=== PATIENT | female | born 1960 | race Caucasian/White ===

== ENCOUNTER → 2020-10-31 13:52 | Outpatient (BNVA) | payer MEDICAID, SELFPAY | PROVIDERS: PCP Family Medicine; Visit Provider Nurse Practitioner | DX: Z76.89 Persons encountering health services in other specified circumstances (principal) ==

== ENCOUNTER → 2020-11-14 14:56 | Outpatient (BNVA) | payer MEDICAID, SELFPAY | PROVIDERS: Visit Provider Nurse Practitioner | DX: Z76.89 Persons encountering health services in other specified circumstances (principal) ==

== ENCOUNTER 2021-01-11 10:22 | Outpatient (REF) | payer MEDICAID, SELFPAY ==
--- NOTE | ~2021-01-11 | MM_ITS ---
EXAMINATION: MM SCREENING DIGITAL BREAST TOMOSYNTHESIS, BILATERAL CLINICAL INFORMATION: Screening. Asymptomatic. The lifetime risk of breast cancer based on the Tyrer-Cuzick Model is 5%. COMPARISON: Mammography: 01/05/2020, 11/17/2019, 01/03/2019, 06/30/2018, 02/25/2018, 12/11/2017. TECHNIQUE: Digital breast tomosynthesis is performed in both the craniocaudal and mediolateral oblique views along with computer-aided detection (CAD). Synthesized 2D images are generated from the tomosynthesis. FINDINGS: There are scattered areas of fibroglandular density (ACR BI-RADS breast composition Category b). There are no significant masses, abnormal calcifications, or other abnormalities. No significant changes from prior exams. MM/MM tomosynthesis screening BI IMPRESSION: No mammographic evidence of malignancy. ASSESSMENT: BI-RADS 1: Negative RECOMMENDATION: Routine annual mammography screening. This patient's information was entered into a reminder system with a target due date for their next mammogram.
== END 2021-01-11 10:23 | disposition home or self-care (01) ==
LOC: HO.MAMMO 10:22
PROVIDERS: Visit Provider Family Medicine
DX: Z12.31 Encounter for screening mammogram for malignant neoplasm of breast (principal)
CPT/HCPCS: 77063; 77067

== ENCOUNTER 2021-02-12 09:00 | Outpatient (REF) | payer MEDICAID, SELFPAY ==
[2021-02-16 00:56] LABS: HPV 16 RNA NOT DETECTED (NOT DETECTED); HPV mRNA E6/E7 rflx Detected (Not Detected)
== END 2021-02-12 09:01 | disposition home or self-care (01) ==
LOC: HO.LAB 09:00
PROVIDERS: PCP Family Medicine; Visit Provider Obstetrics & Gynecology
DX: Z12.4 Encounter for screening for malignant neoplasm of cervix (principal); Z11.51 Encounter for screening for human papillomavirus (HPV); N95.0 Postmenopausal bleeding
CPT/HCPCS: 36415; 87624; 87625; 88141; 88142; 99202

== ENCOUNTER 2021-02-18 13:59 | Outpatient (REF) | payer MEDICAID, SELFPAY ==
--- NOTE | ~2021-02-18 | US_ITS ---
EXAMINATION: US PELVIS COMPLETE CLINICAL INFORMATION: Postmenopausal bleeding. COMPARISON: Ultrasound pelvis 12/30/2012 TECHNIQUE: Transabdominal and transvaginal ultrasound of the pelvis was performed. FINDINGS: The uterus is retroverted measuring 6.0 cm in length, 4.0 cm in AP and 3.6 cm wide and volume 45.24 mL. There is a hyperechoic lesion in the fundal uterus measuring 2.2 x 2.1 x 2.2 cm likely fibroid. No additional lesions seen. The right ovary measures 2.1 x 2.2 x 1.4 cm and volume 3.4 mL. It appears unremarkable. The left ovary measures 1.6 x 1.1 1.3 cm and volume 1.2 mL. It appears unremarkable. There is no free fluid in the cul-de-sac. US/US transvaginal IMPRESSION: Small uterine fibroid measuring 2.2 cm. It measured 1.7 cm on previous ultrasound exam 12/30/2012. The ovaries are unremarkable.
--- NOTE | ~2021-02-18 | US_ITS ---
EXAMINATION: US PELVIS COMPLETE CLINICAL INFORMATION: Postmenopausal bleeding. COMPARISON: Ultrasound pelvis 12/30/2012 TECHNIQUE: Transabdominal and transvaginal ultrasound of the pelvis was performed. FINDINGS: The uterus is retroverted measuring 6.0 cm in length, 4.0 cm in AP and 3.6 cm wide and volume 45.24 mL. There is a hyperechoic lesion in the fundal uterus measuring 2.2 x 2.1 x 2.2 cm likely fibroid. No additional lesions seen. The right ovary measures 2.1 x 2.2 x 1.4 cm and volume 3.4 mL. It appears unremarkable. The left ovary measures 1.6 x 1.1 1.3 cm and volume 1.2 mL. It appears unremarkable. There is no free fluid in the cul-de-sac. US/US pelvic complete IMPRESSION: Small uterine fibroid measuring 2.2 cm. It measured 1.7 cm on previous ultrasound exam 12/30/2012. The ovaries are unremarkable.
== END 2021-02-18 14:00 | disposition home or self-care (01) ==
LOC: HO.US 13:59
PROVIDERS: Visit Provider Obstetrics & Gynecology
DX: N95.0 Postmenopausal bleeding (principal)
CPT/HCPCS: 76830; 76856

== ENCOUNTER 2021-02-20 10:13 | Emergency (ER) | payer MEDICAID, SELFPAY ==
--- NOTE | ~2021-02-20 | XR_ITS ---
EXAMINATION: XR CHEST CLINICAL INFORMATION: Chest pain. COMPARISON: None TECHNIQUE: Frontal view of the chest was obtained. FINDINGS: The lungs are well-expanded and clear. The heart size and pulmonary vascularity is normal. There is mild spondylosis dorsal spine. No lytic process. XR/XR chest 1V IMPRESSION: No acute cardiopulmonary process seen. Mild spondylosis dorsal spine.
--- NOTE | ~2021-02-20 | CT_ITS ---
EXAMINATION: CT ANGIOGRAM OF THE CHEST WITH AND WITHOUT CONTRAST (CT PULMONARY ANGIOGRAM FOR PE) CLINICAL INFORMATION: Reason for Exam Chest pain. elevated D-dimer. COMPARISON: None TECHNIQUE: Prior to contrast administration, noncontrast localization images were obtained. Subsequently, multidetector volumetric imaging was performed from the thoracic inlet to below the diaphragms following the administration of 80 mL Omnipaque 350 intravenous contrast. No contrast reaction reported Sagittal, coronal, and MIP oblique sagittal reformatted images were obtained on the CT workstation, uploaded to PACS, and reviewed. This CT examination was performed using dose optimization techniques as appropriate, variously including the following: *Automated exposure control *Adjustment of mA and/or kV according to patient size (this includes techniques or standardized protocols for targeted exams where dose is matched to indication/reason for exam; i.e. extremities or head) *Use of iterative reconstruction technique Total exam dose-length product 319 mGy-cm FINDINGS: QUALITY OF STUDY/CONTRAST BOLUS: Satisfactory. PULMONARY ARTERIES: No central or segmental pulmonary emboli. THORACIC AORTA: No aneurysm or dissection. LUNG: There is mild centrilobular emphysema. No acute pneumonic process seen. There is no bladder nodules, mass or groundglass density. PLEURA: No pleural effusion or pneumothorax. MEDIASTINUM: The heart size and the great vessels are normal caliber. No pericardial effusion seen. Central trachea and the bronchi widely patent. No abnormal lymph nodes visualized. No evidence of septal bowing or right heart strain. CHEST WALL/AXILLA: No axillary or internal mammary lymphadenopathy. OSSEOUS STRUCTURES: No acute or suspicious osseous abnormality. UPPER ABDOMEN: Visualized liver, spleen, pancreas and bilateral adrenal glands are unremarkable. No reflux of contrast into the hepatic veins to suggest elevated right heart pressures. CT/CT angio chest PE protocol IMPRESSION: No evidence of PE. No evidence of aortic aneurysm or dissection. VTE: negative
[2021-02-20 10:32] VITALS: BP 158/80; PULSE 65; RESP 14; TEMP 36.8; O2SAT 97; BMI 35.6
--- NOTE | 2021-02-20 11:23 | ECG_ITS ---
Test Reason : CHEST PAIN Blood Pressure : / mmHG Vent. Rate : 069 BPM Atrial Rate : 069 BPM P-R Int : 146 ms QRS Dur : 078 ms QT Int : 428 ms P-R-T Axes : 066 037 059 degrees QTc Int : 458 ms Normal sinus rhythm Normal ECG When compared with ECG of 15-AUG-2018 20:54, No significant change was found Referred By: Generic ED Physician Electronically Signed By:Lyndon Landry
--- NOTE | 2021-02-20 11:34 | ED_ITS ---
HPI - Chest Pain General Chief Complaint: Chest Pain Stated Complaint: chest pain Time Seen by Provider: 02/20/21 11:25 Source: patient Mode of arrival: ambulatory Limitations: no limitations History of Present Illness HPI narrative: Patient presents to the ED for 3 days left to right chest pain, nausea, acid burning sensation ( epigastric), and headache. Patient denies any fever or chills. Patient was diagnosed in COVID this past December. Patient denies any swelling lower extremities. Patient denies any shortness of breath. Related Data Home Medications Medication Instructions Recorded Confirmed sennosides 8.6 mg capsule 17.2 mg PO BEDTIME cap 10/31/20 02/12/21 Previous Rx's Medication Instructions Recorded linaclotide 290 mcg capsule 290 mcg PO QAM #30 cap 11/14/20 omeprazole 40 mg capsule,delayed 40 mg PO BID #60 cap 11/14/20 release simethicone 180 mg capsule 180 mg PO QID 30 Days #120 cap 11/14/20 sucralfate 100 mg/mL oral 20 ml PO DAILY #420 ml 11/14/20 suspension famotidine [Pepcid] 20 mg PO BID 20 Days #40 tab 02/20/21 Allergies Allergy/AdvReac Type Severity Reaction Status Date / Time No Known Allergies Allergy Verified 02/12/21 09:16 [No Known Allergies*] Review of Systems Review of Systems: Yes all other systems are reviewed and are negative Constitutional: Constitutional: Reports as per HPI and Reports no additional constitutional complaints Eyes: Eyes: Reports as per HPI and Reports no additional eye complaints ENT: Reports system reviewed and no additional complaints, except as documented and Reports as per HPI Cardiovascular: Cardiovascular: Reports as per HPI, Reports no additional cardiovascular complaints and Reports chest pain Respiratory: Respiratory: Reports as per HPI, Reports no additional respiratory complaints and Reports cough Gastrointestinal: Gastrointestinal: Reports as per HPI and Reports no additional gastrointestinal complaints Musculoskeletal: Musculoskeletal: Reports no additional musculoskeletal complaints and Reports as per HPI Neurologic: Reports system reviewed and no additional complaints, except as documented and Reports as per HPI Psychiatric: Psychiatric: Reports no additional psychiatric complaints and Reports as per HPI [facility] Past Medical History Medical History Diabetes Surgical History History of esophagogastroduodenoscopy (EGD) Hx of colonoscopy Family History Family History Father Family history of prostate problems Mother Tumor Social History Social History Household Members: None Alcohol intake: never Smoking Status: Light tobacco smoker Tobacco Type: Cigarette Cigarettes Per Day: 2 Smoked in Last 30 Days: No Use of substances other than those prescribed or required for medical reasons: No Advance Directives: Yes Advance Directives Information Provided: Yes Advance Directives on File: No Current occupational status: disabled Physical Exam Vital Signs: Vital Signs: Last Vital Signs Temp 98.1 F 02/20/21 15:05 Pulse 59 02/20/21 15:05 Resp 18 02/20/21 15:05 BP 117/78 02/20/21 15:05 Pulse Ox 98 02/20/21 15:05 Body Mass Index 35.6 Const: General: cooperative, healthy appearing, comfortable, no acute distress, well developed, alert, awake and Physically active Orientation/consciousness: patient oriented x3 HENMT: Head: Yes normal to inspection and Yes No palpable skull fracture present Eyes: General: appearance normal, both eyes and all related structures Neck: Neck: Yes normal visual inspection, Yes full ROM, Yes no lymphadenopathy, Yes no meningeal signs, Yes trachea midline, Yes supple and No tender Chest: Chest palpation & inspection: normal inspection of the chest Resp: Effort & Inspection: normal respiratory effort and able to speak in complete sentences Auscultation: clear to auscultation bilaterally Cardio: Jugular venous distension: no JVD Heart sounds: S1 normal heart sound present and S2 normal heart sound present GI: Inspection: Yes normal to inspection and No abdominal wall ecchymosis Palpation (GI): Soft to palpation, not firm, Tenderness to palpation present (GI) (mild) in the epigastrum; not in the LLQ, not in the RLQ, not in the LUQ, not in the RUQ, not at McBurney's point, not periumbilically, not suprapubicly, Garnica's sign negative, obturator sign negative, psoas sign negative, with no rebound tenderness and Rovsing's sign negative, no guarding and not rigid : General: No CVA tenderness and Yes no CVA tenderness Back/Spine/Pelvis: Back: no CVA tenderness, No CVA tenderness and No back tenderness Skin: General skin exam: no rashes or lesions noted and elasticity normal Neuro: General: patient oriented x3, no meningeal signs and CN's II-XI intact bilaterally Cranial nerves: Yes CN's II-XII intact bilaterally Extrem: General: Yes normal to inspection and Yes full ROM Psych: Appearance: grossly normal, well kempt and not disheveled Course Course Course Narrative: Possibly patient having GERD exacerbation, but due to age and risk factors patient will have a cardiac evaluation. Reevaluation(s) Reevaluation #1: Patient EKG normal. Patient's troponin negative after having symptoms for 2 days. Due to elevated D-dimer patient was sent for chest CT was negative for pneumonia and PE. Patient states chest pain burning sensation resolved after receiving GI cocktail. Most likely patient had GERD causing chest pain. Patient to be discharged with Pepcid. Patient informed to follow- up with PCP. MDM - Chest Pain MDM Narrative Medical decision making narrative: GERD chest pain Lab Data Result diagrams: 02/20/21 11:37 02/20/21 11:37 Labs: Lab Results 02/20/21 02/20/21 02/20/21 Range/Units 11:37 11:37 11:37 WBC 9.2 (4.8-10.8) X10*3/uL RBC 4.27 (4.20-5.50) X10*6/uL Hgb 12.2 (12.0-16.0) g/dl Hct 38.6 (37-47) % MCV 90.4 (80-98) fL MCH 28.6 (27.0-33.0) pg MCHC 31.6 (31.0-35.0) g/dl RDW 14.5 (11.0-16.0) % Plt Count 311 (160-400) X10*3/uL MPV 10.3 (9.4-12.3) fL Immature Gran % (Auto) 0.3 (0.0-0.4) % Neut % (Auto) 62.1 (45-73) % Lymph % (Auto) 25.0 (20-40) % [place] % (Auto) 5.9 (2-11) % Eos % (Auto) 6.2 H (0-4) % Baso % (Auto) 0.5 (0-2) % Lymph # (Auto) 2.3 (1.2-4.9) X10*3/uL [place] # (Auto) 0.5 (0.1-1.2) X10*3/uL Eos # (Auto) 0.6 H (0.0-0.4) X10*3/uL Baso # (Auto) 0.1 (0.0-0.2) X10*3/uL Abs Immat Gran (auto) 0.03 (0.00-0.03) X10*3/uL Absolute Neuts (auto) 5.7 (2.0-8.3) X10*3/uL Absolute Nucleated RBC 0.000 (0.0-0.012) X10*3/uL Nucleated RBC % (auto) 0.0 (0.0-0.2) /100WBC PT 12.5 (10.8-13.0) SEC INR 1.1 (0.9-1.1) APTT 34.1 (24.1-38.0) SEC D-Dimer 229 NG/ML Hold Blue Top SEE NOTE Sodium 139 (135-145) mmol/L Potassium 4.2 (3.3-5.1) mmol/L Chloride 102 (96-108) mmol/L Carbon Dioxide 28 (22-29) mmol/L Anion Gap 13 (12-20) BUN 14 (9-16) mg/dL Creatinine 0.71 (0.5-1.4) mg/dL Estim Creat Clear Calc 85.9 Estimated GFR > 60 Random Glucose 107 (60-115) mg/dL Calcium 8.7 (8.4-10.2) mg/dL Total Bilirubin 0.5 (0.0-1.0) mg/dL Direct Bilirubin 0.2 (0.0-0.5) mg/dL AST 16 (5-31) U/L ALT 16 (0-31) U/L Alkaline Phosphatase 78 (39-117) U/L Troponin I High Sens (<3.5-17.0) ng/L B-Natriuretic Peptide (<100) pg/mL Total Protein 6.3 L (6.5-8.0) g/dL Albumin 3.8 (3.5-5.0) g/dL Lipase 39 (8-78) U/L 02/20/21 Range/Units 11:37 WBC (4.8-10.8) X10*3/uL RBC (4.20-5.50) X10*6/uL Hgb (12.0-16.0) g/dl Hct (37-47) % MCV (80-98) fL MCH (27.0-33.0) pg MCHC (31.0-35.0) g/dl RDW (11.0-16.0) % Plt Count (160-400) X10*3/uL MPV (9.4-12.3) fL Immature Gran % (Auto) (0.0-0.4) % Neut % (Auto) (45-73) % Lymph % (Auto) (20-40) % [place] % (Auto) (2-11) % Eos % (Auto) (0-4) % Baso % (Auto) (0-2) % Lymph # (Auto) (1.2-4.9) X10*3/uL [place] # (Auto) (0.1-1.2) X10*3/uL Eos # (Auto) (0.0-0.4) X10*3/uL Baso # (Auto) (0.0-0.2) X10*3/uL Abs Immat Gran (auto) (0.00-0.03) X10*3/uL Absolute Neuts (auto) (2.0-8.3) X10*3/uL Absolute Nucleated RBC (0.0-0.012) X10*3/uL Nucleated RBC % (auto) (0.0-0.2) /100WBC PT (10.8-13.0) SEC INR (0.9-1.1) APTT (24.1-38.0) SEC D-Dimer NG/ML Hold Blue Top Sodium (135-145) mmol/L Potassium (3.3-5.1) mmol/L Chloride (96-108) mmol/L Carbon Dioxide (22-29) mmol/L Anion Gap (12-20) BUN (9-16) mg/dL Creatinine (0.5-1.4) mg/dL Estim Creat Clear Calc Estimated GFR Random Glucose (60-115) mg/dL Calcium (8.4-10.2) mg/dL Total Bilirubin (0.0-1.0) mg/dL Direct Bilirubin (0.0-0.5) mg/dL AST (5-31) U/L ALT (0-31) U/L Alkaline Phosphatase (39-117) U/L Troponin I High Sens < 3.5 (<3.5-17.0) ng/L B-Natriuretic Peptide 42 (<100) pg/mL Total Protein (6.5-8.0) g/dL Albumin (3.5-5.0) g/dL Lipase (8-78) U/L ECG Data ECG #1: Interpretation: Normal sinus rhythm. Normal EKG. Nuclear rate 69. Pr interval 146. QRS 78. QTC 458. Negative STEMI Discharge Plan Discharge Clinical Impression: GERD (gastroesophageal reflux disease), Chest pain Patient Disposition: Home, Self-Care Instructions: Chest Pain (ED), Gastroesophageal Reflux Disease (ED) Additional Instructions: Regrese al servicio de urgencias de inmediato si tiene dificultad para respirar al hacer ejercicio, dolor en el pecho, dolor abdominal, n?useas, v?mitos, fiebre, escalofr?os, hinchaz?n de las extremidades inferiores, dolor en la pantorrilla, tos con malini o cualquier otro s?ntoma preocupante. Armida an?lisis de malini dieron negativo para un ataque card?aco. El electrocardiograma fue normal. La tomograf?a computarizada de t?rax result? negativa para un co?gulo de malini. Ghazala un seguimiento con cordova PCP Prescriptions: New famotidine [Pepcid] 20 mg tablet 20 mg PO BID 20 Days Qty: 40 RF: 0 No Action senna 8.6 mg capsule 17.2 mg PO BEDTIME RF: 0 omeprazole 40 mg capsule,delayed release(DR/EC) 40 mg PO BID Qty: 60 RF: 6 Linzess 290 mcg capsule 290 mcg PO QAM Qty: 30 RF: 6 sucralfate [Carafate] 100 mg/mL suspension 20 ml PO DAILY Qty: 420 RF: 6 simethicone 180 mg capsule 180 mg PO QID 30 Days Qty: 120 RF: 3 Interventions: ED Discharge Assessment Last Done: 02/20/21 16:10 Discharge Date/Time: 02/20/21 16:27 Print Language: Faroese
[2021-02-20] MEDS: Lidocaine HCl Viscous 2 % 15 ML SOLUTION MUCOUS MEM (11:45)
[2021-02-20] MEDS: Famotidine/PF 20 MG/2 ML VIAL IVPUSH (11:45)
[2021-02-20] MEDS: Acetaminophen 325 MG TABLET 650 MG PO (11:45)
[2021-02-20] MEDS: Magnesium Hydrox/Alum Hydrox 30 ML ORAL.SUSP PO (11:45)
[2021-02-20] MEDS: ondansetron HCL 4 MG/2 ML VIAL IVPUSH (11:45)
[2021-02-20 11:46] LABS: MANUAL DIFF FLAG NO
[2021-02-20] MEDS: PHENobarb/Hyoscy/Atropine/Scop 10 ML ELIXIR PO (11:46)
[2021-02-20 11:51] VITALS: BP 143/89; PULSE 64; RESP 16; TEMP 36.7; O2SAT 97
--- NOTE | 2021-02-20 11:51 | PC.NURSE ---
iv inserted, labs drawn, ekg performed upon arrival, trimmer climber nsr 60s, pt medicated per order, pt awaiting radiology for cxr, will continue to monitor.
[2021-02-20 11:52] VITALS: PULSE 64
[2021-02-20 11:54] LABS: Basophils Absolute Auto 0.1 X10*3/uL (0.0-0.2); Basophils Percent Auto 0.5 % (0-2); Eosinophils Absolute Auto 0.6 X10*3/uL (0.0-0.4); Eosinophils Percent Auto 6.2 % (0-4); Hematocrit 38.6 % (37-47); Hemoglobin 12.2 g/dl (12.0-16.0); Imm Gran Abs Auto 0.03 X10*3/uL (0.00-0.03); Imm Gran Pct Auto 0.3 % (0.0-0.4); Lymphocytes Absolute Auto 2.3 X10*3/uL (1.2-4.9); Mean Corpuscular HGB Conc 31.6 g/dl (31.0-35.0); Mean Corpuscular Hemoglobin 28.6 pg (27.0-33.0); Mean Corpuscular Volume 90.4 fL (80-98); Mean Platelet Volume 10.3 fL (9.4-12.3); Monocytes Absolute Auto 0.5 X10*3/uL (0.1-1.2); Monocytes Percent Auto 5.9 % (2-11); Neutrophils Absolute Auto 5.7 X10*3/uL (2.0-8.3); Neutrophils Percent Auto 62.1 % (45-73); Platelet Count 311 X10*3/uL (160-400); Red Blood Count 4.27 X10*6/uL (4.20-5.50); Red Cell Distribution Width 14.5 % (11.0-16.0); White Blood Count 9.2 X10*3/uL (4.8-10.8)
[2021-02-20 11:56] LABS: INTERNATIONAL NORM RATIO 1.1 (0.9-1.1); Prothrombin Time 12.5 SEC (10.8-13.0)
[2021-02-20 11:59] LABS: D Dimer 229 NG/ML; Partial Thromboplastin Time 34.1 SEC (24.1-38.0)
[2021-02-20 12:14] LABS: Troponin-I High Sensitivity < 3.5 ng/L (<3.5-17.0)
[2021-02-20 12:16] LABS: Alanine Aminotransferase 16 U/L (0-31); Albumin Level 3.8 g/dL (3.5-5.0); Alkaline Phosphatase 78 U/L (39-117); Anion Gap 13 (12-20); Aspartate Amino Transferase 16 U/L (5-31); Bilirubin Direct 0.2 mg/dL (0.0-0.5); Bilirubin Total 0.5 mg/dL (0.0-1.0); Blood Urea Nitrogen 14 mg/dL (9-16); Calcium 8.7 mg/dL (8.4-10.2); Carbon Dioxide 28 mmol/L (22-29); Chloride 102 mmol/L (96-108); Creatinine Clr Calc Pharmacy 85.9; Estimated Glomerular Filt Rate > 60; Glucose Random 107 mg/dL (60-115); Lipase 39 U/L (8-78); Potassium 4.2 mmol/L (3.3-5.1); Sodium 139 mmol/L (135-145); Total Protein 6.3 g/dL (6.5-8.0)
[2021-02-20 12:20] LABS: B Type Natriuretic Peptide 42 pg/mL (<100)
[2021-02-20 13:26] VITALS: BP 130/80; PULSE 63; RESP 18; TEMP 36.6; O2SAT 98
--- NOTE | 2021-02-20 13:27 | PC.NURSE ---
patient a&o, engine monitor sinus juanita 50-60s, vss, patient has mild headache still, denies chest pain at this time, will continue to monitor.
--- NOTE | 2021-02-20 13:35 | PC.NURSE ---
pt to ct scan
[2021-02-20 15:05] VITALS: BP 117/78; PULSE 59; RESP 18; TEMP 36.7; O2SAT 98
--- NOTE | 2021-02-20 15:06 | PC.NURSE ---
patient a&ox3, no c/o pain or discomfort, headache also resolved, vitals stable, residential monitor sinus juanita 50s-60s, pt currently watching tv, will continue to monitor.
== END 2021-02-20 16:27 | disposition home or self-care (01) ==
PROVIDERS: Physician Assistant; Emergency Provider Emergency Medicine; PCP Family Medicine
DX: K21.9 Gastro-esophageal reflux disease without esophagitis (principal); R07.9 Chest pain, unspecified; E11.9 Type 2 diabetes mellitus without complications; Z86.16 Personal history of COVID-19; F17.210 Nicotine dependence, cigarettes, uncomplicated
CPT/HCPCS: 36415; 71045; 71275; 80048; 80076; 83690; 83880; 84484; 85025; 85379; 85610; 85730; 93005; 96374; 96375; 99284; J2405; Q9967

== ENCOUNTER → 2021-03-04 10:53 | Outpatient (BNVA) | payer MEDICAID, SELFPAY | PROVIDERS: PCP Family Medicine; Visit Provider Obstetrics & Gynecology ==

== ENCOUNTER 2021-03-13 13:46 | Outpatient (REF) | payer MEDICAID, SELFPAY | END 2021-03-13 13:47 | disposition home or self-care (01) | LOC: HO.LAB 13:46 | PROVIDERS: PCP Family Medicine; Visit Provider Obstetrics & Gynecology | DX: R87.615 Unsatisfactory cytologic smear of cervix (principal); N95.0 Postmenopausal bleeding; E11.9 Type 2 diabetes mellitus without complications; F17.210 Nicotine dependence, cigarettes, uncomplicated | CPT/HCPCS: 57456; 58100; 88142; 88305 ==

== ENCOUNTER → 2021-03-19 10:06 | Outpatient (BNVA) | payer MEDICAID, SELFPAY | PROVIDERS: PCP Family Medicine; Visit Provider Nurse Practitioner ==

== ENCOUNTER → 2021-03-27 14:19 | Outpatient (BNVA) | payer MEDICAID, SELFPAY | PROVIDERS: PCP Family Medicine; Visit Provider Obstetrics & Gynecology ==

== ENCOUNTER 2021-04-19 15:00 | Outpatient (REF) | payer MEDICAID, SELFPAY ==
--- NOTE | ~2021-04-19 | US_ITS ---
EXAMINATION: US VENOUS ULTRASOUND WITH DOPPLER LOWER EXTREMITY, RIGHT CLINICAL INFORMATION: Pain and swelling COMPARISON: Previous exams most recent January 2020 TECHNIQUE: Ultrasound of the deep veins is performed from the hip to the calf with compression sonography and color and pulse Doppler assessment. Spectral analysis with color-flow imaging is performed. FINDINGS: There is normal venous compression and respiratory variation and augmented flow. The visualized common femoral vein, superficial femoral vein, profunda femoral vein, popliteal vein, and the trifurcation region shows no evidence of deep venous thrombosis. There is no significant popliteal fossa cyst. US/US venous duplex LE RT IMPRESSION: No DVT demonstrated in the right lower extremity.
== END 2021-04-19 15:01 | disposition home or self-care (01) ==
LOC: HO.US 15:00
PROVIDERS: Visit Provider Emergency Medicine
DX: M79.661 Pain in right lower leg (principal); L21.9 Seborrheic dermatitis, unspecified; M79.89 Other specified soft tissue disorders
CPT/HCPCS: 93971

== ENCOUNTER 2021-05-02 17:57 | Emergency (ER) | payer MEDICAID, SELFPAY ==
[2021-05-02 19:20] VITALS: BP 148/62; PULSE 67; RESP 18; TEMP 36.8; O2SAT 98; BMI 35.4
[2021-05-02 21:26] VITALS: BP 173/85; PULSE 67; RESP 18; O2SAT 97
[2021-05-02 21:38] LABS: MANUAL DIFF FLAG NO
[2021-05-02 21:39] LABS: Basophils Absolute Auto 0.1 X10*3/uL (0.0-0.2); Basophils Percent Auto 0.6 % (0-2); Eosinophils Absolute Auto 0.3 X10*3/uL (0.0-0.4); Eosinophils Percent Auto 3.1 % (0-4); Hematocrit 38.5 % (37-47); Hemoglobin 12.1 g/dl (12.0-16.0); Imm Gran Abs Auto 0.03 X10*3/uL (0.00-0.03); Imm Gran Pct Auto 0.3 % (0.0-0.4); Lymphocytes Absolute Auto 3.4 X10*3/uL (1.2-4.9); Lymphocytes Percent Auto 37.1 % (20-40); Mean Corpuscular HGB Conc 31.4 g/dl (31.0-35.0); Mean Corpuscular Hemoglobin 28.3 pg (27.0-33.0); Mean Platelet Volume 10.3 fL (9.4-12.3); Monocytes Absolute Auto 0.5 X10*3/uL (0.1-1.2); Monocytes Percent Auto 5.7 % (2-11); Neutrophils Absolute Auto 4.8 X10*3/uL (2.0-8.3); Neutrophils Percent Auto 53.2 % (45-73); Platelet Count 289 X10*3/uL (160-400); Red Blood Count 4.28 X10*6/uL (4.20-5.50); Red Cell Distribution Width 14.1 % (11.0-16.0); White Blood Count 9.1 X10*3/uL (4.8-10.8)
[2021-05-02 22:05] LABS: Anion Gap 10 (12-20); Blood Urea Nitrogen 12 mg/dL (9-16); Calcium 9.1 mg/dL (8.4-10.2); Carbon Dioxide 32 mmol/L (22-29); Chloride 105 mmol/L (96-108); Creatinine Clr Calc Pharmacy 87.7; Estimated Glomerular Filt Rate > 60; Glucose Random 105 mg/dL (60-115); Potassium 4.1 mmol/L (3.3-5.1); Sodium 143 mmol/L (135-145)
[2021-05-02 22:13] LABS: B Type Natriuretic Peptide 69 pg/mL (<100)
[2021-05-03 00:41] VITALS: BP 182/87; PULSE 67; RESP 18; TEMP 36.8; O2SAT 99
--- NOTE | 2021-05-03 01:02 | ED.EXTPRO ---
HPI - Extremity Problem General Chief complaint: Extremity Problem Stated complaint: feet swollen Time Seen by Provider: 05/03/21 00:13 Source: patient Mode of arrival: ambulatory Limitations: no limitations History of Present Illness HPI Narrative: Patient comes emergency room complaining of bilateral lower extremity swelling that started 2 weeks ago. Patient states it started approximately. Patient had a duplex ultrasound of the right leg on April 19, no DVT found. Patient states that she feels that the skin on her legs is tense, no calf tenderness. Patient denies chest pain or shortness of breath. Patient states that she has never been on any diuretics. Related Data Previous Rx's Medication Instructions Recorded linaclotide 290 mcg capsule 290 mcg PO QAM #30 cap 11/14/20 omeprazole 40 mg capsule,delayed 40 mg PO BID #60 cap 11/14/20 release sucralfate 100 mg/mL oral 20 ml PO DAILY #420 ml 11/14/20 suspension famotidine [Pepcid] 20 mg PO BID 20 Days #40 tab 02/20/21 simethicone 180 mg capsule 180 mg PO QID #120 cap 02/25/21 hydrocortisone 2.5 % topical cream 1 appl MS BID #30 g 03/19/21 with perineal applicator sennosides 8.6 mg capsule 17.2 mg PO BEDTIME 30 Days #60 cap 03/19/21 furosemide [Lasix] 40 mg PO DAILY #7 tab 05/03/21 Allergies Allergy/AdvReac Type Severity Reaction Status Date / Time No Known Allergies Allergy Verified 05/03/21 00:44 [No Known Allergies*] Review of Systems Review of Systems: Constitutional : No Weight loss, No Fever, No Chills, No Night Sweats, No Fatigue, No Malaise ENT/Mouth : No Hearing loss, No Ear Pain, No Nasal Congestion, No Sinus Pain, No Hoarseness, No sore throat, No Rhinorrhea, No Swallowing Difficulty Eyes: No Eye Pain, No Swelling, No Redness, No Foreign Body, No Discharge, No Vision Changes Cardiovascular : No Chest Pain, No SOB, No Dyspnea on Exertion, No Orthopnea, No Palpitations Respiratory : No Cough, No Sputum, No Wheezing, No Smoke Exposure, No Dyspnea Gastrointestinal : No Nausea, No Vomiting, No Diarrhea, No Constipation, No abdominal Pain, No Hematochezia, No Melena Genitourinary : no irregular bleeding, No Dysuria, No Urinary Frequency, No Hematuria, No Urinary Incontinence, No Urgency, No Flank Pain, No Urinary Flow Changes, No Hesitancy Musculoskeletal : No joint pain, No Myalgias, No Joint Swelling, complaining of bilateral lower extremity swelling Skin : No Skin Lesions, No rash Neuro : No Weakness, No Numbness, No Paresthesias, No Loss of Consciousness, No Dizziness, No Headache Psych : No Anxiety/Panic, No Depression, No SI/HI/AH/VH, No Social Issues, Heme/Lymph: No Bruising, No Bleeding,No Lymphadenopathy Endocrine : No Polyuria, No Polydipsia, No Temperature Intolerance [facility] Past Medical History Medical History Diabetes Surgical History History of esophagogastroduodenoscopy (EGD) Hx of colonoscopy Family History Family History Father Family history of prostate problems Mother Tumor Social History Social History Household Members: None Alcohol intake: never Patient Tobacco Use Status: Never used Tobacco Cigarettes Per Day: 2 Use of substances other than those prescribed or required for medical reasons: No Advance Directives: No Advance Directives Information Provided: No Patient : No Current occupational status: disabled Physical Exam Vital Signs: Vital Signs: Last Vital Signs Temp 98.3 F 05/03/21 00:41 Pulse 67 05/03/21 00:41 Resp 18 05/03/21 00:41 BP 182/87 H 05/03/21 00:41 Pulse Ox 99 05/03/21 00:41 Body Mass Index 35.4 Appearance: Alert. Oriented X3. No acute distress. Eyes: Pupils equal, round and reactive to light. ENT: Pharynx normal. Neck: Normal inspection. Neck supple. No lymph nodes noted. No crepitus CVS: Normal heart rate and rhythm. Pulses normal. Normal S1 and S2 Respiratory: No respiratory distress. Breath sounds normal. No Wheezing. No rales Abdomen: Soft and nontender. No rigidity. No distention. good BS x4 Skin: Skin warm and dry. Extremities: +2 pitting edema bilaterally from ankles to below the knee bilaterally, no calf tenderness on palpation, No Lacerations. No Rash Neuro: Oriented X 3. No motor deficit. No sensory deficit. Moving all extermities. No slurred speech. Course Course Course Narrative: I discussed labs with the patient, no acute findings. Patient likely has venous insufficiency. DVTs are not suspected at this time. Patient's legs were Hernan wrap, patient instructed to use compression stockings and she will be started on Lasix. Patient needs close follow-up with her primary care physician. MDM - Extremity (Nontraumatic) Lab Data Result diagrams: 05/02/21 21:32 05/02/21 21:32 Labs: Lab Results 05/02/21 05/02/21 05/02/21 Range/Units 21:32 21:32 21:32 WBC 9.1 (4.8-10.8) X10*3/uL RBC 4.28 (4.20-5.50) X10*6/uL Hgb 12.1 (12.0-16.0) g/dl Hct 38.5 (37-47) % MCV 90.0 (80-98) fL MCH 28.3 (27.0-33.0) pg MCHC 31.4 (31.0-35.0) g/dl RDW 14.1 (11.0-16.0) % Plt Count 289 (160-400) X10*3/uL MPV 10.3 (9.4-12.3) fL Immature Gran % (Auto) 0.3 (0.0-0.4) % Neut % (Auto) 53.2 (45-73) % Lymph % (Auto) 37.1 (20-40) % [place] % (Auto) 5.7 (2-11) % Eos % (Auto) 3.1 (0-4) % Baso % (Auto) 0.6 (0-2) % Lymph # (Auto) 3.4 (1.2-4.9) X10*3/uL [place] # (Auto) 0.5 (0.1-1.2) X10*3/uL Eos # (Auto) 0.3 (0.0-0.4) X10*3/uL Baso # (Auto) 0.1 (0.0-0.2) X10*3/uL Abs Immat Gran (auto) 0.03 (0.00-0.03) X10*3/uL Absolute Neuts (auto) 4.8 (2.0-8.3) X10*3/uL Absolute Nucleated RBC 0.000 (0.0-0.012) X10*3/uL Nucleated RBC % (auto) 0.0 (0.0-0.2) /100WBC Sodium 143 (135-145) mmol/L Potassium 4.1 (3.3-5.1) mmol/L Chloride 105 (96-108) mmol/L Carbon Dioxide 32 H (22-29) mmol/L Anion Gap 10 L (12-20) BUN 12 (9-16) mg/dL Creatinine 0.72 (0.5-1.4) mg/dL Estim Creat Clear Calc 87.7 Estimated GFR > 60 Random Glucose 105 (60-115) mg/dL Calcium 9.1 (8.4-10.2) mg/dL B-Natriuretic Peptide 69 (<100) pg/mL Discharge Plan Discharge Clinical Impression: Bilateral edema of lower extremity Patient Disposition: Home, Self-Care Instructions: Leg Edema (ED) Additional Instructions: Use compression stockings and try to sleep with her legs elevated. Please follow-up with your primary care physician tomorrow. If you have any worsening or new symptoms, please return to the emergency room or call 911 Prescriptions: New furosemide [Lasix] 40 mg tablet 40 mg PO DAILY Qty: 7 RF: 0 No Action simethicone 180 mg capsule 180 mg PO QID Qty: 120 RF: 0 famotidine [Pepcid] 20 mg tablet 20 mg PO BID 20 Days Qty: 40 RF: 0 omeprazole 40 mg capsule,delayed release(DR/EC) 40 mg PO BID Qty: 60 RF: 6 Linzess 290 mcg capsule 290 mcg PO QAM Qty: 30 RF: 6 sucralfate [Carafate] 100 mg/mL suspension 20 ml PO DAILY Qty: 420 RF: 6 hydrocortisone [Proctosol HC] 2.5 % cream with perineal applicator 1 appl MS BID Qty: 30 RF: 3 senna 8.6 mg capsule 17.2 mg PO BEDTIME 30 Days Qty: 60 RF: 6
== END 2021-05-03 01:18 | disposition home or self-care (01) ==
PROVIDERS: Emergency Provider Emergency Medicine; PCP Family Medicine
DX: R60.0 Localized edema (principal); E11.9 Type 2 diabetes mellitus without complications
CPT/HCPCS: 36415; 80048; 83880; 85025; 99283; 99284

== ENCOUNTER → 2021-05-07 15:28 | Outpatient (BNVA) | payer MEDICAID, SELFPAY | PROVIDERS: PCP Family Medicine; Visit Provider Nurse Practitioner ==

== ENCOUNTER 2021-06-10 23:06 | Emergency (ER) | payer MEDICAID, SELFPAY ==
[2021-06-10 23:10] VITALS: BP 148/86; PULSE 89; RESP 20; TEMP 36.4; O2SAT 96; BMI 36.6
[2021-06-10 23:24] VITALS: BP 148/86; PULSE 89; RESP 18; TEMP 36.4; O2SAT 96
[2021-06-10 23:44] LABS: Glucose Urine UA NEG (NEG); Leukocyte Esterase Urine NEG (NEG); Nitrite Urine NEG (NEG); Specific Gravity - Urine >= 1.030 (1.005-1.025); Urine Blood 1+ (NEG); Urine Ketones NEG (NEG); Urine Protein TRACE MG/DL (NEG-TRACE)
[2021-06-10 23:45] LABS: Appearance Urine CLEAR; Color Urine YELLOW
[2021-06-10 23:50] LABS: Bacteria Urine 1+ /LPF; Mucus Urine 1+ /LPF; Squamous Epithelial Cell Urine 2+ /LPF
[2021-06-10 23:55] LABS: COVID-19 Test Negative (Negative)
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
[2021-06-11 00:08] LABS: Glucose, Whole Blood 144 mg/dL (60-115)
[2021-06-11 00:20] LABS: Amphetamine Screen Urine Not Detected (Not Detect); Barbiturates, Urine Not Detected (Not Detect); Benzodiazepines Screen Urine Not Detected (Not Detect); Cannabinoid Screen Urine Not Detected (Not Detect); Cocaine Screen Urine Not Detected (Not Detect); Opiate Screen Urine Not Detected (Not Detect); Phencyclidine Screen Urine Not Detected (Not Detect)
--- NOTE | 2021-06-11 06:16 | PC.NURSE ---
Patient slept through he night, VSS, no distress observed/reported, disposition is discharge home, daughter Shobha called for ride, consented to pick her mother at 0700, patient made aware, will continue to monitor.
== END 2021-06-11 07:00 | disposition home or self-care (01) ==
PROVIDERS: Emergency Provider Student in an Organized Health Care Education/Training Program; PCP Family Medicine
DX: F41.9 Anxiety disorder, unspecified (principal); E11.9 Type 2 diabetes mellitus without complications; Z79.899 Other long term (current) drug therapy; Z20.822 Contact with and (suspected) exposure to COVID-19
CPT/HCPCS: 36415; 80307; 81001; 82947; 87635; 99282; 99283

== ENCOUNTER 2021-07-15 12:34 | Outpatient (REF) | payer MEDICAID, SELFPAY ==
--- NOTE | ~2021-07-15 | XR_ITS ---
EXAMINATION: XR HIP, RIGHT CLINICAL INFORMATION: Pain. COMPARISON: None TECHNIQUE: Two views of the right hip. FINDINGS: Bones and soft tissues are normal. No fracture. Alignment is anatomic. Hip joint space is maintained. XR/XR hip RT min 2V IMPRESSION: Unremarkable right hip exam.
== END 2021-07-15 12:35 | disposition home or self-care (01) ==
LOC: HO.XRAY 12:34
PROVIDERS: PCP Family Medicine; Visit Provider Family Medicine
DX: R10.31 Right lower quadrant pain (principal)
CPT/HCPCS: 73502

== ENCOUNTER 2021-08-19 14:00 | Outpatient (RCR) | payer MEDICAID, SELFPAY | END 2021-10-09 11:59 | disposition home or self-care (01) | LOC: HO.PT 14:00 | PROVIDERS: PCP Family Medicine; Visit Provider Family Medicine | DX: M25.562 Pain in left knee (principal); M25.561 Pain in right knee | CPT/HCPCS: 97110; 97150; 97162; 97530 ==

== ENCOUNTER 2021-08-25 15:48 | Emergency (ER) | payer MEDICAID, SELFPAY ==
--- NOTE | ~2021-08-25 | XR_ITS ---
EXAMINATION: XR CHEST CLINICAL INFORMATION: Chest pain COMPARISON: None TECHNIQUE: 2 views of the chest were obtained. FINDINGS: Notable bronchial thickening and perihilar increased markings consistent small airway disease. No focal infiltrate or pleural disease. Heart and mediastinum normal. XR/XR chest 2V IMPRESSION: Changes of nonspecific bronchitis.
--- NOTE | 2021-08-25 15:51 | ECG_ITS ---
Test Reason : CHEST PRESS Blood Pressure : / mmHG Vent. Rate : 073 BPM Atrial Rate : 073 BPM P-R Int : 132 ms QRS Dur : 076 ms QT Int : 408 ms P-R-T Axes : 072 038 052 degrees QTc Int : 449 ms Normal sinus rhythm Cannot rule out Anterior infarct , age undetermined Abnormal ECG When compared with ECG of 20-FEB-2021 10:25, No significant change was found Referred By: Generic ED Physician Electronically Signed By:PROSPER CHONG
[2021-08-25 16:28] LABS: MANUAL DIFF FLAG NO
[2021-08-25 16:31] LABS: Basophils Percent Auto 0.5 % (0-2); Eosinophils Absolute Auto 0.2 X10*3/uL (0.0-0.4); Eosinophils Percent Auto 2.6 % (0-4); Hemoglobin 12.5 g/dl (12.0-16.0); Imm Gran Abs Auto 0.02 X10*3/uL (0.00-0.03); Imm Gran Pct Auto 0.3 % (0.0-0.4); Lymphocytes Absolute Auto 1.9 X10*3/uL (1.2-4.9); Lymphocytes Percent Auto 26.2 % (20-40); Mean Corpuscular HGB Conc 32.1 g/dl (31.0-35.0); Mean Corpuscular Hemoglobin 28.7 pg (27.0-33.0); Mean Corpuscular Volume 89.4 fL (80-98); Mean Platelet Volume 10.6 fL (9.4-12.3); Monocytes Absolute Auto 0.3 X10*3/uL (0.1-1.2); Monocytes Percent Auto 4.5 % (2-11); Neutrophils Absolute Auto 4.9 X10*3/uL (2.0-8.3); Neutrophils Percent Auto 65.9 % (45-73); Platelet Count 300 X10*3/uL (160-400); Red Blood Count 4.36 X10*6/uL (4.20-5.50); White Blood Count 7.4 X10*3/uL (4.8-10.8)
[2021-08-25 16:50] LABS: Alanine Aminotransferase 16 U/L (0-31); Albumin Level 3.8 g/dL (3.5-5.0); Alkaline Phosphatase 87 U/L (39-117); Anion Gap 11 (12-20); Aspartate Amino Transferase 17 U/L (5-31); Bilirubin Total 0.2 mg/dL (0.0-1.0); Blood Urea Nitrogen 8 mg/dL (9-16); Calcium 8.7 mg/dL (8.4-10.2); Carbon Dioxide 27 mmol/L (22-29); Chloride 104 mmol/L (96-108); Estimated Glomerular Filt Rate > 60; Glucose Random 269 mg/dL (60-115); Potassium 4.1 mmol/L (3.3-5.1); Sodium 138 mmol/L (135-145); Total Protein 6.4 g/dL (6.5-8.0)
[2021-08-25 16:53] LABS: Troponin-I High Sensitivity < 3.5 ng/L (<3.5-17.0)
[2021-08-25 17:30] VITALS: BP 120/83; PULSE 98; RESP 16; TEMP 36.6; O2SAT 98; BMI 36.7
--- NOTE | 2021-08-25 17:47 | ED_ITS ---
HPI - Chest Pain General Chief Complaint: Chest Pain Stated Complaint: cp Time Seen by Provider: 08/25/21 17:46 History of Present Illness HPI narrative: Patient is a 61-year-old female with a history of diabetes, smoking. No history of hypertension, high cholesterol. Never had a heart attack. Presented today with having chest pain that is mid chest. Worse with lying down. Not associated with shortness of breath no diaphoresis. Patient has been having the pain since 08:00 this morning. It is constant. It is not affected by movement. Patient denies any leg swelling. No history of blood clots. No history of COVID. Patient had her COVID vaccine. Positive cough but it has been constant it has not changed. Patient denies any diaphoresis. No history of stress test. Patient from home. No long distance travel. Related Data Home Medications Medication Instructions Recorded Confirmed bupropion HCl 300 mg 24 hr tablet, 1 tab PO QAM 06/10/21 06/10/21 extended release (Wellbutrin XL) fluoxetine 20 mg capsule (Prozac) 2 cap PO QAM 06/10/21 06/10/21 gabapentin 100 mg capsule 1 cap PO BEDTIME 06/10/21 06/10/21 prazosin 2 mg capsule 2 cap PO BEDTIME 06/10/21 06/10/21 Previous Rx's Medication Instructions Recorded pantoprazole 40 mg granules 40 mg PO DAILY #30 ea 08/25/21 delayed-release for susp in packet (Protonix) Allergies Allergy/AdvReac Type Severity Reaction Status Date / Time No Known Allergies Allergy Verified 05/07/21 15:29 [No Known Allergies*] Review of Systems Review of Systems: No new coughing No vomiting No shortness of breath No diaphoresis All systems reviewed otherwise negative PMFSH Past Medical History Attestation statement: The following information was validated with the patient. Medical History Diabetes Surgical History History of esophagogastroduodenoscopy (EGD) Hx of colonoscopy Family History Family History Father Family history of prostate problems Mother Tumor Social History Social History Household Members: None Alcohol intake: never Patient Tobacco Use Status: Never used Tobacco Cigarettes Per Day: 2 Advance Directives: No Advance Directives Information Provided: No Patient : No Current occupational status: disabled Physical Exam Vital Signs: Vital Signs: Last Vital Signs Temp 98 F 08/25/21 17:30 Pulse 98 08/25/21 17:30 Resp 16 08/25/21 17:30 BP 120/83 08/25/21 17:30 Pulse Ox 98 08/25/21 17:30 Body Mass Index 36.7 Appearance: Alert. Oriented X3. No acute distress. Eyes: Pupils equal, round and reactive to light. ENT: Pharynx normal. Neck: Normal inspection. Neck supple. No lymph nodes noted. No crepitus CVS: Normal heart rate and rhythm. Pulses normal. Normal S1 and S2 Respiratory: No respiratory distress. Breath sounds normal. No Wheezing. No ra les Abdomen: Soft and nontender. No rigidity. No distention. good BS x4 Skin: Skin warm and dry. Normal skin color. Normal skin turgor. Extremities: No lower extremity edema. Neurovascular intact to all extremities. No Lacerations. No Rash Neuro: Oriented X 3. No motor deficit. No sensory deficit. Moving all extermities. No slurred speech MDM - Chest Pain MDM Narrative Medical decision making narrative: Patient's EKG showed a sinus pattern heart rate was 60 [place] QRS QT within normal limits is no acute ST segment elevation noted. History not consistent with ACS. Patient however is 61 years old has a history of diabetes and also history of smoking. First set of cardiac enzyme were negative. We will get a 2nd set of cardiac enzymes. Will monitor closely. Will give Maalox. Patient be monitored. Symptom improved. Two sets of cardiac enzymes are negative. Patient pain atypical. Will discharge home. Will give the patient PPI. Will have follow-up on an outpatient basis Medical Records Data Attestation: I reviewed the patient's medical records. Lab Data Attestation: I reviewed the patient's lab results. Result diagrams: 08/25/21 16:23 08/25/21 16:22 Labs: Lab Results 08/25/21 08/25/21 08/25/21 Range/Units 16:22 16:22 16:23 WBC 7.4 (4.8-10.8) X10*3/uL RBC 4.36 (4.20-5.50) X10*6/uL Hgb 12.5 (12.0-16.0) g/dl Hct 39.0 (37-47) % MCV 89.4 (80-98) fL MCH 28.7 (27.0-33.0) pg MCHC 32.1 (31.0-35.0) g/dl RDW 15.0 (11.0-16.0) % Plt Count 300 (160-400) X10*3/uL MPV 10.6 (9.4-12.3) fL Immature Gran % (Auto) 0.3 (0.0-0.4) % Neut % (Auto) 65.9 (45-73) % Lymph % (Auto) 26.2 (20-40) % [place] % (Auto) 4.5 (2-11) % Eos % (Auto) 2.6 (0-4) % Baso % (Auto) 0.5 (0-2) % Lymph # (Auto) 1.9 (1.2-4.9) X10*3/uL [place] # (Auto) 0.3 (0.1-1.2) X10*3/uL Eos # (Auto) 0.2 (0.0-0.4) X10*3/uL Baso # (Auto) 0.0 (0.0-0.2) X10*3/uL Abs Immat Gran (auto) 0.02 (0.00-0.03) X10*3/uL Absolute Neuts (auto) 4.9 (2.0-8.3) X10*3/uL Absolute Nucleated RBC 0.000 (0.0-0.012) X10*3/uL Nucleated RBC % (auto) 0.0 (0.0-0.2) /100WBC Sodium 138 (135-145) mmol/L Potassium 4.1 (3.3-5.1) mmol/L Chloride 104 (96-108) mmol/L Carbon Dioxide 27 (22-29) mmol/L Anion Gap 11 L (12-20) BUN 8 L (9-16) mg/dL Creatinine 0.87 (0.5-1.4) mg/dL Estim Creat Clear Calc TNP Estimated GFR > 60 Random Glucose 269 H (60-115) mg/dL Calcium 8.7 (8.4-10.2) mg/dL Total Bilirubin 0.2 (0.0-1.0) mg/dL AST 17 (5-31) U/L ALT 16 (0-31) U/L Alkaline Phosphatase 87 (39-117) U/L Troponin I High Sens < 3.5 (<3.5-17.0) ng/L Total Protein 6.4 L (6.5-8.0) g/dL Albumin 3.8 (3.5-5.0) g/dL 08/25/21 Range/Units 19:22 WBC (4.8-10.8) X10*3/uL RBC (4.20-5.50) X10*6/uL Hgb (12.0-16.0) g/dl Hct (37-47) % MCV (80-98) fL MCH (27.0-33.0) pg MCHC (31.0-35.0) g/dl RDW (11.0-16.0) % Plt Count (160-400) X10*3/uL MPV (9.4-12.3) fL Immature Gran % (Auto) (0.0-0.4) % Neut % (Auto) (45-73) % Lymph % (Auto) (20-40) % [place] % (Auto) (2-11) % Eos % (Auto) (0-4) % Baso % (Auto) (0-2) % Lymph # (Auto) (1.2-4.9) X10*3/uL [place] # (Auto) (0.1-1.2) X10*3/uL Eos # (Auto) (0.0-0.4) X10*3/uL Baso # (Auto) (0.0-0.2) X10*3/uL Abs Immat Gran (auto) (0.00-0.03) X10*3/uL Absolute Neuts (auto) (2.0-8.3) X10*3/uL Absolute Nucleated RBC (0.0-0.012) X10*3/uL Nucleated RBC % (auto) (0.0-0.2) /100WBC Sodium (135-145) mmol/L Potassium (3.3-5.1) mmol/L Chloride (96-108) mmol/L Carbon Dioxide (22-29) mmol/L Anion Gap (12-20) BUN (9-16) mg/dL Creatinine (0.5-1.4) mg/dL Estim Creat Clear Calc Estimated GFR Random Glucose (60-115) mg/dL Calcium (8.4-10.2) mg/dL Total Bilirubin (0.0-1.0) mg/dL AST (5-31) U/L ALT (0-31) U/L Alkaline Phosphatase (39-117) U/L Troponin I High Sens < 3.5 (<3.5-17.0) ng/L Total Protein (6.5-8.0) g/dL Albumin (3.5-5.0) g/dL Discharge Plan Discharge Clinical Impression: Chest pain Patient Disposition: Home, Self-Care Prescriptions: New pantoprazole [Protonix] [address] for susp in packet 40 mg PO DAILY Qty: 30 RF: 0 No Action gabapentin 100 mg capsule 1 cap PO BEDTIME RF: 0 fluoxetine [Prozac] 20 mg capsule 2 cap PO QAM RF: 0 prazosin 2 mg capsule 2 cap PO BEDTIME RF: 0 bupropion HCl [Wellbutrin XL] 300 mg tablet extended release 24 hr 1 tab PO QAM RF: 0 Referrals: Libra Barone MD [Primary Care Provider] - 2 days
[2021-08-25] MEDS: Magnesium Hydrox/Alum Hydrox 30 ML ORAL.SUSP PO (18:03)
--- NOTE | 2021-08-25 19:19 | PC.NURSE ---
PT RESTING IN STRETCHER, DENIES COMPLAINTS OR CP AT THIS TIME. PT AWAITING FOR REPEAT TROP. PT REMAINS ALERT, RESPIRATIONS EASY, N/L. SKIN W/D. WILL CONTINUE TO MONITOR PT.
--- NOTE | 2021-08-25 19:31 | PC.NURSE ---
REPEAT TROP OBTAINED.
[2021-08-25 19:52] LABS: Troponin-I High Sensitivity < 3.5 ng/L (<3.5-17.0)
== END 2021-08-25 20:16 | disposition home or self-care (01) ==
PROVIDERS: Emergency Provider Emergency Medicine Emergency Medical Services; PCP Family Medicine
DX: R07.9 Chest pain, unspecified (principal); F17.210 Nicotine dependence, cigarettes, uncomplicated; Z79.899 Other long term (current) drug therapy; Z71.6 Tobacco abuse counseling
CPT/HCPCS: 36415; 71046; 80053; 84484; 85025; 93005; 99283

== ENCOUNTER → 2021-09-06 15:53 | Outpatient (BNVA) | payer MEDICAID, SELFPAY | PROVIDERS: PCP Family Medicine; Visit Provider Nurse Practitioner ==

== ENCOUNTER → 2021-10-01 16:04 | Outpatient (BNVA) | payer MEDICAID, SELFPAY | PROVIDERS: PCP Family Medicine; Visit Provider Nurse Practitioner ==

== ENCOUNTER → 2021-11-04 14:51 | Outpatient (BNVA) | payer MEDICAID, SELFPAY | PROVIDERS: PCP Family Medicine; Referring Provider Family Medicine; Visit Provider Nurse Practitioner | DX: K59.04 Chronic idiopathic constipation (principal); K21.9 Gastro-esophageal reflux disease without esophagitis; K29.70 Gastritis, unspecified, without bleeding; K64.9 Unspecified hemorrhoids; R10.9 Unspecified abdominal pain; D12.6 Benign neoplasm of colon, unspecified | CPT/HCPCS: 99212 ==

== ENCOUNTER 2021-12-17 13:23 | Outpatient (REF) | payer MEDICAID, SELFPAY ==
[2021-12-17 15:30] LABS: Appearance Urine CLEAR; Color Urine YELLOW; Glucose Urine UA NEG (NEG); Leukocyte Esterase Urine TRACE (NEG); Nitrite Urine NEG (NEG); PH 5.5 (5.0-8.0); Specific Gravity - Urine >= 1.030 (1.005-1.025); UACC Culture Trigger YES; Urine Blood 1+ (NEG); Urine Ketones 5 MG/DL (NEG); Urine Protein NEG (NEG-TRACE)
[2021-12-17 16:02] LABS: WBC Urine 0-2 /HPF (0-4)
[2021-12-17 16:03] LABS: Bacteria Urine TRACE /LPF; Squamous Epithelial Cell Urine TRACE /LPF
== END 2021-12-17 13:24 | disposition home or self-care (01) ==
LOC: HO.LAB 13:23
PROVIDERS: PCP Family Medicine; Referring Provider Family Medicine; Visit Provider Nurse Practitioner
DX: K21.9 Gastro-esophageal reflux disease without esophagitis (principal); K59.04 Chronic idiopathic constipation; K64.9 Unspecified hemorrhoids; R10.9 Unspecified abdominal pain; K57.92 Diverticulitis of intestine, part unspecified, without perforation or abscess without bleeding; R35.0 Frequency of micturition
CPT/HCPCS: 81001; 87086; 99212

== ENCOUNTER 2022-01-14 14:39 | Outpatient (REF) | payer MEDICAID, SELFPAY ==
--- NOTE | ~2022-01-14 | MM_ITS ---
EXAMINATION: MM SCREENING DIGITAL BREAST TOMOSYNTHESIS, BILATERAL CLINICAL INFORMATION: Screening. Asymptomatic. The lifetime risk of breast cancer based on the Tyrer-Cuzick Model is 5%. COMPARISON: Mammography: 01/11/2021, 01/05/2020, 11/17/2019, 06/30/2018, 12/11/2017 TECHNIQUE: Digital breast tomosynthesis is performed in both the craniocaudal and mediolateral oblique views along with computer-aided detection (CAD). Synthesized 2D images are generated from the tomosynthesis. Additional right MLO view is provided. FINDINGS: There are scattered areas of fibroglandular density (ACR BI-RADS breast composition Category b). Breast tissue composition borders on heterogeneously dense. There is inhomogeneous parenchymal pattern with scattered asymmetries similar to prior exams. There is no interval significant mass or architectural abnormality or developing density. Biopsy clip marker again seen on right mid lower inner quadrant. There are no abnormal calcifications. The axilla and skin contours are unremarkable. MM/MM tomosynthesis screening BI IMPRESSION: No significant changes from prior studies. ASSESSMENT: BI-RADS 2: Benign RECOMMENDATION: Routine annual mammography screening. This patient's information was entered into a reminder system with a target due date for their next mammogram.
== END 2022-01-14 14:40 | disposition home or self-care (01) ==
LOC: HO.MAMMO 14:39
PROVIDERS: PCP Family Medicine; Visit Provider Family Medicine
DX: Z12.31 Encounter for screening mammogram for malignant neoplasm of breast (principal)
CPT/HCPCS: 77063; 77067

== ENCOUNTER → 2022-02-07 13:32 | Outpatient (BNVA) | payer MEDICAID, SELFPAY | PROVIDERS: PCP Family Medicine; Referring Provider Family Medicine; Visit Provider Nurse Practitioner | DX: K21.9 Gastro-esophageal reflux disease without esophagitis (principal); K29.70 Gastritis, unspecified, without bleeding; K59.04 Chronic idiopathic constipation; D12.6 Benign neoplasm of colon, unspecified | CPT/HCPCS: 99212 ==

== ENCOUNTER → 2022-05-23 10:38 | Outpatient (BNVA) | payer MEDICAID, SELFPAY | PROVIDERS: Visit Provider Nurse Practitioner | DX: K21.9 Gastro-esophageal reflux disease without esophagitis (principal); K30 Functional dyspepsia; K59.04 Chronic idiopathic constipation; K64.9 Unspecified hemorrhoids; Z79.899 Other long term (current) drug therapy | CPT/HCPCS: 99212 ==

== ENCOUNTER 2022-06-04 10:38 | Outpatient (REF) | payer MEDICAID, SELFPAY ==
[2022-06-04 15:38] LABS: CT PCR NOT DETECTED (Not Detect.); NG PCR NOT DETECTED (Not Detect.)
[2022-06-05 09:25] LABS: BV Int Neg Control Negative (Negative); BV Int Pos Control Positive (Positive)
[2022-06-09 10:36] LABS: HPV mRNA E6/E7 rflx Not Detected (Not Detected)
== END 2022-06-04 10:39 | disposition home or self-care (01) ==
LOC: HO.LAB 10:38
PROVIDERS: Visit Provider Obstetrics & Gynecology
DX: Z01.419 Encounter for gynecological examination (general) (routine) without abnormal findings (principal); N76.0 Acute vaginitis; B96.89 Other specified bacterial agents as the cause of diseases classified elsewhere; Z11.59 Encounter for screening for other viral diseases; Z11.4 Encounter for screening for human immunodeficiency virus [HIV]; Z11.3 Encounter for screening for infections with a predominantly sexual mode of transmission; Z11.8 Encounter for screening for other infectious and parasitic diseases; Z11.51 Encounter for screening for human papillomavirus (HPV)
CPT/HCPCS: 87480; 87491; 87510; 87591; 87624; 87660; 88142

== ENCOUNTER 2022-06-07 12:26 | Emergency (ER) | payer MEDICAID, SELFPAY ==
[2022-06-07 13:41] VITALS: BP 135/77; PULSE 72; RESP 17; TEMP 36.6; O2SAT 98; BMI 36.6
[2022-06-07] MEDS: Diphth,Pertus(ACell),Tet Adult 0.5 ML SYRINGE IM (17:56)
--- NOTE | 2022-06-07 19:06 | ED_ITS ---
HPI - Wound/Laceration General Chief Complaint: Wound/Laceration Stated Complaint: ? toe nail infection Time Seen by Provider: 06/07/22 16:19 Source: patient Mode of arrival: ambulatory History of Present Illness HPI narrative: 62-year-old female with a past medical history diabetes, hypertension presenting to the ED complaining of puncture wound to web space between 4th and 5th right foot S/P poking with cuticle cutter last night. Denies going through shoe. Tetanus unknown. Denies injury to other area, numbness, tingling, weakness Onset (ago): day(s) Related Data Home Medications Medication Instructions Recorded Confirmed fluoxetine 20 mg capsule (Prozac) 2 cap PO QAM 06/10/21 06/10/21 gabapentin 100 mg capsule 1 cap PO BEDTIME 06/10/21 06/10/21 prazosin 2 mg capsule 2 cap PO BEDTIME 06/10/21 06/10/21 bupropion HCl 150 mg 24 hr tablet, 150 mg PO QAM 05/23/22 extended release levothyroxine 75 mcg tablet 75 mcg PO QAM 05/23/22 sertraline 100 mg tablet 150 mg PO QAM 05/23/22 Previous Rx's Medication Instructions Recorded simethicone 180 mg capsule 180 mg PO QID 30 days #120 caps 12/17/21 dicyclomine 20 mg tablet 20 mg PO TID #90 tabs 02/07/22 linaclotide 72 mcg capsule 72 mcg PO QAM #30 caps 02/07/22 (Linzess) sennosides 8.6 mg capsule (senna) 17.2 mg PO BEDTIME constipation 30 02/07/22 days #60 caps hydrocortisone 2.5 % topical cream 1 appl ND BID hemorrhoids #30 grams 05/23/22 with perineal applicator (Proctosol HC) metoclopramide HCl 5 mg tablet 5 mg PO .TIDAC #90 tabs 05/23/22 (Reglan) pantoprazole 40 mg tablet,delayed 40 mg PO BID #60 tabs 05/27/22 release metronidazole 500 mg tablet 500 mg PO BID 7 days #14 tabs 06/04/22 cephalexin 500 mg capsule 500 mg PO QID 7 days #28 caps 06/07/22 Allergies Allergy/AdvReac Type Severity Reaction Status Date / Time No Known Allergies Allergy Verified 06/04/22 10:23 [No Known Allergies*] Review of Systems Review of Systems: Constitutional: No Fever, No Chills ENT/Mouth: No Ear Pain, No Nasal Congestion, No sore throat, No Rhinorrhea, No Swallowing Difficulty Cardiovascular: No Chest Pain, No SOB Respiratory: No Cough Gastrointestinal: No Nausea, No Vomiting, No Diarrhea, No Constipation, No Abdominal pain Genitourinary: No Dysuria, No Urinary Frequency, No Flank Pain Musculoskeletal: No joint pain, No Myalgias, No Joint Swelling Skin: + Skin Lesions, No rash Neuro: No Weakness, No Numbness, No Paresthesias Yes all other systems are reviewed and are negative [facility] Past Medical History Attestation statement: The following information was validated with the patient. Medical History Bacterial vaginosis Diabetes Hypertension LLQ abdominal pain Surgical History History of esophagogastroduodenoscopy (EGD) Hx of colonoscopy Family History Family History Father Family history of prostate problems Mother Tumor Social History Social History Household Members: None Alcohol intake: never Patient Tobacco Use Status: Never used Tobacco Cigarettes Per Day: 2 Advance Directives: No Advance Directives Information Provided: No Current occupational status: disabled Physical Exam Vital Signs: Vital Signs: Last Vital Signs Temp 98 F 06/07/22 13:41 Pulse 72 06/07/22 13:41 Resp 17 06/07/22 13:41 BP 135/77 06/07/22 13:41 Pulse Ox 98 06/07/22 13:41 O2 Del Method 06/07/22 13:41 BMI result Body Mass Index 36.6 Const: General: cooperative, healthy appearing and no acute distress Orientation/consciousness: patient oriented x3 Limitations: no limitations HEENT: Head: Yes normal to inspection and Yes atraumatic Ears: hearing grossly normal bilaterally General nose exam: Normal external nose present Face and sinus: Yes normal facial exam Eyes: General: appearance normal, both eyes and all related structures EOM: EOMs intact bilaterally Neck: Neck: Yes normal visual inspection and Yes no meningeal signs Resp: Effort & Inspection: normal respiratory effort and no respiratory distress Cardio: Rate: regular rate Heart sounds: S1 normal heart sound present and S2 normal heart sound present Peripheral pulses: dorsalis pedis present Skin: Rashes: no rashes Neuro: General: patient oriented x3, tone normal and no meningeal signs Gait exam (Neuro): Normal gait present Extrem: Other: + small 0.3 cm superficial puncture wound noted to webspace of right 5th toe. Slight erythema noted to top of foot. No streaking, no drainage MDM - Wound/Laceration MDM Narrative Medical decision making narrative: 62-year-old female with a past medical history diabetes, hypertension presenting to the ED complaining of puncture wound to web space between 4th and 5th right foot S/P poking with cuticle cutter last night. On exam vital signs stable, NAD, nontoxic appearing, physical exam as above with small superficial puncture wound noted to foot. Low concern for Pseudomonas as cuticle clutter did not go through shoe Concern for early cellulitis. Wound does not need repair Plan: Update tetanus, Keflex Differential Diagnosis Differential diagnosis: Likely laceration Medical Records Attestation: I reviewed the patient's medical records. Lab Data Attestation: I reviewed the patient's lab results. Discharge Plan Discharge Clinical Impression: Puncture wound Patient Disposition: Home, Self-Care Instructions: Laceration (ED) Additional Instructions: Your tetanus was updated today. Keflex as an antibiotic please take as prescribed DO NOT GO IN THE WATER If area begins to look infected, is red, there is drainage or you fever please return to the emergency department Valentin t?tanos se actualiz? hoy. Keflex jon antibi?sandy, t?danielle seg?n lo prescrito NO TE METAS AL AGUA Si el ?butch comienza a verse infectada, est? felicia, hay drenaje o tiene fiebre, regrese al departamento de emergencias. Prescriptions: New cephalexin 500 mg capsule 500 mg PO QID 7 Days Qty: 28 0RF No Action pantoprazole 40 mg tablet,delayed release (DR/EC) 40 mg PO BID Qty: 60 6RF gabapentin 100 mg capsule 1 cap PO BEDTIME fluoxetine [Prozac] 20 mg capsule 2 cap PO QAM prazosin 2 mg capsule 2 cap PO BEDTIME metronidazole 500 mg tablet 500 mg PO BID 7 Days Qty: 14 0RF simethicone 180 mg capsule 180 mg PO QID 30 Days Qty: 120 6RF Rx Instructions: after meals Linzess 72 mcg capsule 72 mcg PO QAM Qty: 30 6RF senna 8.6 mg capsule 17.2 mg PO BEDTIME 30 Days Qty: 60 6RF dicyclomine 20 mg tablet 20 mg PO TID Qty: 90 6RF bupropion HCl 150 mg tablet extended release 24 hr 150 mg PO QAM levothyroxine 75 mcg tablet 75 mcg PO QAM sertraline 100 mg tablet 150 mg PO QAM hydrocortisone [Proctosol HC] 2.5 % cream with perineal applicator 1 appl ND BID Qty: 30 6RF metoclopramide HCl [Reglan] 5 mg tablet 5 mg PO .TIDAC Qty: 90 3RF Rx Instructions: Provider aware of possible interactions with sertraline and antidepressant, monitoring Referrals: Physician,Hamilton J [Primary Care Provider] - 3 days Interventions: ED Discharge Assessment Last Done: 06/07/22 19:13 Print Language: Belarusian
== END 2022-06-07 21:03 | disposition home or self-care (01) ==
PROVIDERS: Emergency Provider Emergency Medicine
DX: S91.331A Puncture wound without foreign body, right foot, initial encounter (principal); W27.8XXA Contact with other nonpowered hand tool, initial encounter; E11.9 Type 2 diabetes mellitus without complications; I10 Essential (primary) hypertension; Y93.E8 Activity, other personal hygiene; Y92.039 Unspecified place in apartment as the place of occurrence of the external cause; Y99.9 Unspecified external cause status
CPT/HCPCS: 90471; 90715; 99283; 99284

== ENCOUNTER 2022-07-22 13:47 | Outpatient (REF) | payer MEDICAID, SELFPAY ==
--- NOTE | ~2022-07-22 | US_ITS ---
EXAMINATION: US PELVIS CLINICAL INFORMATION: Pain COMPARISON: Previous pelvic ultrasound most recent January [address] of the abdomen and pelvis July 2020 TECHNIQUE: Ultrasound of the pelvis is performed using both transabdominal and transvaginal transducers along with Doppler. Transvaginal imaging is performed due to inadequate visualization transabdominally. FINDINGS: The uterus is retroverted and measures 7.4 x 3.5 x 3.4 cm in dimension. There is a 2.4 x 2.1 x 2.4 cm hyperechoic lesion in the upper posterior intramural uterine body. This is stable from previous exams. No other focal uterine lesion is seen. Endometrial thickness is normal measuring 0.1 cm. There are nabothian cysts in the cervix. The ovaries are normal-appearing. The right ovary measures 1.9 x 1 x 1.5 cm. The left ovary measures 1.8 x 1.6 x 1.5 cm. There is no fluid in the pelvis. US/US pelvic and transvaginal IMPRESSION: Stable 2.4 x 2.1 x 2.4 cm hyperechoic lesion in the intramural posterior uterine body. On CT this is low in attenuation with Hounsfield units suggestive of fat. This is unchanged from previous exams and probably represents a benign lipoleiomyoma.
== END 2022-07-22 13:48 | disposition home or self-care (01) ==
LOC: HO.US 13:47
PROVIDERS: Visit Provider Obstetrics & Gynecology
DX: R10.2 Pelvic and perineal pain (principal)
CPT/HCPCS: 76830; 76856

== ENCOUNTER 2022-08-06 12:22 | Outpatient (REF) | payer MEDICAID, SELFPAY ==
--- NOTE | ~2022-08-06 | XR_ITS ---
EXAMINATION: XR chest 2V CLINICAL INFORMATION: Reason for Exam ACUTE COUGH COMPARISON: Chest radiograph 08/25/2021 TECHNIQUE: 2 views of the chest FINDINGS: Bronchial wall thickening can be seen with a small airways process such as asthma or atypical/viral infection. No pneumothorax or pleural effusion. Normal cardiomediastinal silhouette. XR/XR chest 2V Impression: Bronchial wall thickening can be seen with a small airways process such as asthma or atypical/viral infection.
--- NOTE | ~2022-08-06 | CT_ITS ---
EXAMINATION: CT ABDOMEN AND PELVIS WITH CONTRAST CLINICAL INFORMATION: Abdominal pain. COMPARISON: Ultrasound pelvis 07/22/2022, CT abdomen and pelvis with contrast 08/07/2020. TECHNIQUE: Multidetector volumetric images were obtained from the superior aspect of the liver through the pubic symphysis following administration 85 mL of Omnipaque 350 intravenous contrast. Sagittal and coronal reformatted images were obtained on the technologist's workstation. Oral contrast: No This CT examination was performed using dose optimization techniques as appropriate, variously including the following: *Automated exposure control *Adjustment of mA and/or kV according to patient size (this includes techniques or standardized protocols for targeted exams where dose is matched to indication/reason for exam; i.e. extremities or head) *Use of iterative reconstruction technique DLP: 484 mGy-cm FINDINGS: LUNG BASES: The lung bases are clear. The heart size is normal. LIVER, GALLBLADDER, AND BILIARY TREE: The liver is normal in size and smooth in contour. Parenchymal attenuation is within normal and there is no focal parenchymal lesion or intrahepatic ductal dilatation. Incidental small calcified granuloma right hepatic lobe under 5 mm. Gallbladder shows no stone or wall thickening. No pericholecystic inflammatory changes. Common duct unremarkable. PANCREAS: Unremarkable. SPLEEN: Unremarkable. ADRENAL GLANDS: Unremarkable. KIDNEYS AND URETERS: The kidneys are normal in size, shape, and attenuation. No hydronephrosis, hydroureter, or calculi seen. No perinephric stranding. BLADDER: Unremarkable. GASTROINTESTINAL TRACT: No bowel obstruction or focal inflammatory changes in bowel or mesentery. The appendix is normal. No ascites or fluid collection. No pneumatosis or free air. ABDOMINAL WALL: No significant hernia is appreciated. LYMPH NODES: No lymphadenopathy. VASCULAR: Unremarkable. PELVIC VISCERA: Uterus is retroverted and has a circumscribed fatty lesion in the posterior fundus measuring approximately 1.6 x 2.3 cm, likely lipoleiomyoma as noted on prior studies. No adnexal mass or pelvic ascites. OSSEOUS STRUCTURES: No acute bony abnormality. Degenerative disc changes lumbosacral junction again noted. CT/CT abdomen pelvis w IV con IMPRESSION: -No acute inflammatory changes in abdomen or pelvis. -No bowel obstruction. Normal appendix. No ascites or fluid collection. 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
[2022-08-06 14:10] LABS: Blood Urea Nitrogen 10 mg/dL (9-16); Estimated Glomerular Filt Rate > 60
[2022-08-06] MEDS: iohexoL 350 MG/ML 100 ML INFUS..BTL IV (15:17)
[2022-08-06] MEDS: Barium Sulfate Oral (Vanilla) 450 ML ORAL.SUSP 900 ML PO (15:18)
== END 2022-08-06 12:23 | disposition home or self-care (01) ==
LOC: HO.CT 12:22
PROVIDERS: Radiology Diagnostic Radiology; Absent Provider Emergency Medicine; PCP Family Medicine; Visit Provider Family Medicine
DX: R05.1 Acute cough (principal)
CPT/HCPCS: 36415; 71046; 74177; 82565; 84520; Q9967

== ENCOUNTER 2022-08-14 19:42 | Emergency (ER) | payer MEDICAID, SELFPAY ==
--- NOTE | 2022-08-14 20:25 | ECG_ITS ---
Test Reason : chest pain Blood Pressure : / mmHG Vent. Rate : 082 BPM Atrial Rate : 082 BPM P-R Int : 126 ms QRS Dur : 070 ms QT Int : 342 ms P-R-T Axes : 021 027 061 degrees QTc Int : 399 ms Normal sinus rhythm Normal ECG When compared with ECG of 25-AUG-2021 16:12, QT has shortened Referred By: Generic ED Physician Electronically Signed By:PROSPER CHONG
[2022-08-14 20:27] VITALS: BP 171/95; PULSE 83; RESP 18; TEMP 36.7; O2SAT 100; BMI 35.4
[2022-08-14 20:39] LABS: MANUAL DIFF FLAG NO
[2022-08-14 20:41] LABS: Basophils Percent Auto 0.5 % (0-2); Eosinophils Percent Auto 0.4 % (0-4); Hematocrit 44.4 % (37.0-47.0); Hemoglobin 14.2 g/dl (12.0-16.0); Imm Gran Abs Auto 0.03 X10*3/uL (0.00-0.03); Imm Gran Pct Auto 0.4 % (0.0-0.4); Lymphocytes Absolute Auto 0.8 X10*3/uL (1.2-4.9); Lymphocytes Percent Auto 9.9 % (20-40); Mean Corpuscular Hemoglobin 28.2 pg (27.0-33.0); Mean Corpuscular Volume 88.1 fL (80.0-98.0); Mean Platelet Volume 10.3 fL (9.4-12.3); Monocytes Absolute Auto 0.4 X10*3/uL (0.1-1.2); Monocytes Percent Auto 4.6 % (2-11); Neutrophils Absolute Auto 7.1 x10*3/uL (2.0-8.3); Neutrophils Percent Auto 84.2 % (45-73); Platelet Count 273 X10*3/uL (160-400); Red Blood Count 5.04 X10*6/uL (4.20-5.50); Red Cell Distribution Width 14.8 % (11.0-16.0); White Blood Count 8.4 X10*3/uL (4.8-10.8)
[2022-08-14 20:53] LABS: COVID-19 Test Negative (Negative); IDNOW Serial# 9DB6401D
[2022-08-14 20:57] LABS: Alanine Aminotransferase 19 U/L (0-31); Albumin Level 4.2 g/dL (3.5-5.0); Alkaline Phosphatase 103 U/L (39-117); Anion Gap 13 (12-20); Aspartate Amino Transferase 16 U/L (5-31); Bilirubin Direct 0.2 mg/dL (0.0-0.5); Bilirubin Total 0.5 mg/dL (0.0-1.0); Blood Urea Nitrogen 12 mg/dL (9-16); Calcium 9.3 mg/dL (8.4-10.2); Carbon Dioxide 28 mmol/L (22-29); Chloride 101 mmol/L (96-108); Creatinine Clr Calc Pharmacy 72.4; Estimated Glomerular Filt Rate > 60; Glucose Random 143 mg/dL (60-115); Lipase 28 U/L (8-78); Potassium 4.3 mmol/L (3.3-5.1); Sodium 138 mmol/L (135-145)
[2022-08-14 21:00] LABS: Troponin-I High Sensitivity < 3.5 ng/L (<3.5-17.0)
[2022-08-14 22:59] VITALS: BP 164/77; PULSE 87; TEMP 37.8; O2SAT 97
[2022-08-15 00:02] VITALS: BP 157/78; PULSE 80; RESP 19; O2SAT 98
--- NOTE | 2022-08-15 00:02 | ED.CHESTPAIN ---
HPI - Chest Pain General Chief Complaint: Chest Pain Stated Complaint: Fever/Head pressure/Shakes Time Seen by Provider: 08/15/22 00:02 Source: patient Mode of arrival: ambulatory Limitations: language barrier (Qatari speaking only, biology specimen technician used) History of Present Illness HPI narrative: 62-year-old female presents emergency department for evaluation of chest pain cough, headache, body aches, dizziness and weakness. Patient states she has been sick for 3 days. She states she has a cough which is been nonproductive. She states that she has chest pain with coughing, she points to her sternum when asked to localize the pain. She states that when she coughs the pain is sharp and 6/10 at its worst. She denied shortness of breath or dyspnea on exertion. She states that she has an intermittent, throbbing headache. She states that her body aches. She states she is feeling weak and fatigued. She denied fever but she states she was experiencing chills. She denied rhinorrhea, sore throat, abdominal pain, frequency, urgency, dysuria. Patient states she was seen at a clinic on 08/13/2022 and started on Zithromax. She has taken her 1st dose. complaint: chest pain Onset (ago): day(s) (3) Timing of current episode: episodic Prior episodes: No Onset: other (With coughing) Pain location: substernal Pain radiation: none Severity: moderate Pain scale (0-10): 6 Quality: sharp Relieving factors: nothing Exacerbating factors: other (Cough) Associated symptoms: fever and cough Treatment prior to arrival: other (Zithromax x1 day) Related Data Home Medications Medication Instructions Recorded Confirmed fluoxetine 20 mg capsule (Prozac) 2 cap PO QAM 06/10/21 06/10/21 gabapentin 100 mg capsule 1 cap PO BEDTIME 06/10/21 06/10/21 prazosin 2 mg capsule 2 cap PO BEDTIME 06/10/21 06/10/21 bupropion HCl 150 mg 24 hr tablet, 150 mg PO QAM 05/23/22 extended release levothyroxine 75 mcg tablet 75 mcg PO QAM 05/23/22 sertraline 100 mg tablet 150 mg PO QAM 05/23/22 Previous Rx's Medication Instructions Recorded simethicone 180 mg capsule 180 mg PO QID 30 days #120 caps 12/17/21 dicyclomine 20 mg tablet 20 mg PO TID #90 tabs 02/07/22 linaclotide 72 mcg capsule 72 mcg PO QAM #30 caps 02/07/22 (Linzess) sennosides 8.6 mg capsule (senna) 17.2 mg PO BEDTIME constipation 30 02/07/22 days #60 caps hydrocortisone 2.5 % topical cream 1 appl [place] BID hemorrhoids #30 grams 05/23/22 with perineal applicator (Proctosol HC) metoclopramide HCl 5 mg tablet 5 mg PO .TIDAC #90 tabs 05/23/22 (Reglan) pantoprazole 40 mg tablet,delayed 40 mg PO BID #60 tabs 05/27/22 release metronidazole 500 mg tablet 500 mg PO BID 7 days #14 tabs 06/04/22 cephalexin 500 mg capsule 500 mg PO QID 7 days #28 caps 06/07/22 acetaminophen 500 mg tablet 1,000 mg PO Q6H PRN Pain or fever 08/15/22 (Tylenol Extra Strength) #20 tabs amoxicillin 500 mg capsule 1,000 mg PO TID 5 days #30 caps 08/15/22 Allergies Allergy/AdvReac Type Severity Reaction Status Date / Time No Known Allergies Allergy Verified 06/04/22 10:23 [No Known Allergies*] Review of Systems Review of Systems: Yes all other systems are reviewed and are negative [facility] Past Medical History [facility] Narrative: Past medical history: GERD, gastritis, diabetes, hypertension, bacterial vaginosis. Past surgical history: None. Social history: She states she smokes 3-4 cigarettes per day times many years. She occasionally drinks alcohol. She denies drug use. Medical History Bacterial vaginosis Diabetes Hypertension LLQ abdominal pain Surgical History History of esophagogastroduodenoscopy (EGD) Hx of colonoscopy Family History Family History Father Family history of prostate problems Mother Tumor Social History Social History Household Members: None Alcohol intake: never Patient Tobacco Use Status: Never used Tobacco Cigarettes Per Day: 2 Advance Directives: No Current occupational status: disabled Physical Exam Vital Signs: Vital Signs: Last Vital Signs Temp 100.1 F 08/14/22 22:59 Pulse 80 08/15/22 00:02 Resp 19 08/15/22 00:02 BP 157/78 H 08/15/22 00:02 Pulse Ox 98 08/15/22 00:02 O2 Del Method 08/15/22 00:02 BMI result Body Mass Index 35.4 Const: General: cooperative and no acute distress Orientation/consciousness: oriented to person and oriented to place Limitations: no limitations HEENT: Head: Yes normal to inspection, Yes normocephalic and Yes atraumatic Ears: external ears normal General nose exam: Normal external nose present Face and sinus: Yes normal facial exam Mouth: Normal oral and palatal mucosa present Throat: Yes posterior oropharynx normal Eyes: General: appearance normal, both eyes and all related structures Pupils: Equal, round and reactive pupils present Neck: Neck: Yes normal visual inspection, Yes no lymphadenopathy, Yes trachea midline and Yes supple Chest: Chest palpation & inspection: normal inspection of the chest and normal palpation of entire chest wall Resp: Effort & Inspection: normal respiratory effort and able to speak in complete sentences Auscultation: clear to auscultation bilaterally Cardio: Rate: regular rate Rhythm: regular rhythm Heart sounds: S1 normal heart sound present, S2 normal heart sound present and no murmurs GI: Inspection: Yes normal to inspection Palpation (GI): Soft to palpation, nontender and no guarding Auscultation: normal bowel sounds : General: Yes no CVA tenderness Back/Spine/Pelvis: Back: no CVA tenderness Skin: General skin exam: no rashes or lesions noted Neuro: General: oriented to person and oriented to place Cranial nerves: Yes CN's II-XII intact bilaterally and Yes Equal, round and reactive pupils present Cognition (Neuro): normal cognition Motor exam (neuro): 5/5 motor strength present throughout Extrem: General: Yes normal to inspection Psych: Appearance: grossly normal Speech and movement: Normal speech and movement present Affect: normal affect Attitude: cooperative Thought process: Normal thought process present Thought content: Normal thought content present Course Course Course Narrative: 62-year-old female who presents emergency department for evaluation of 3 days upper respiratory like symptoms including cough, pleuritic chest pain with cough, headache, chills, body aches. Patient seen a higher at a clinic and started on Zithromax. Patient's vital signs revealed an elevated blood pressure of 171/95 with repeat 157/78, O2 saturation was 90-100% on room air. Lung exam was clear in the rest her exam was unremarkable. The patient had a CBC, CMP which were normal. The patient's troponin was below detectable limits. COVID-19 was negative. EKG was unremarkable. Chest x-ray revealed no pneumonia but bronchial wall thickening consistent with bronchitis. I did discuss these findings with the patient. The patient was advised to continue taking Zithromax. She was also started on amoxicillin 1000 mg 3 times a day for 5 days to give her streptococcal coverage added onto the atypical coverage is Zithromax. Patient was advised to take Tylenol as well. She was given her 1st dose of Tylenol and amoxicillin here in the emergency department. She was discharged home with printed and verbal instructions. MDM - Chest Pain Medical Records Data Attestation: I reviewed the patient's medical records. Lab Data Attestation: I reviewed the patient's lab results. Result diagrams: 08/14/22 20:32 08/14/22 20:32 Labs: Lab Results 08/14/22 08/14/22 08/14/22 Range/Units 20:30 20:32 20:32 WBC 8.4 (4.8-10.8) X10*3/uL RBC 5.04 (4.20-5.50) X10*6/uL Hgb 14.2 (12.0-16.0) g/dl Hct 44.4 (37.0-47.0) % MCV 88.1 (80.0-98.0) fL MCH 28.2 (27.0-33.0) pg MCHC 32.0 (31.0-35.0) g/dl RDW 14.8 (11.0-16.0) % Plt Count 273 (160-400) X10*3/uL MPV 10.3 (9.4-12.3) fL Immature Gran % (Auto) 0.4 (0.0-0.4) % Neut % (Auto) 84.2 H (45-73) % Lymph % (Auto) 9.9 L (20-40) % Lamb % (Auto) 4.6 (2-11) % Eos % (Auto) 0.4 (0-4) % Baso % (Auto) 0.5 (0-2) % Lymph # (Auto) 0.8 L (1.2-4.9) X10*3/uL Lamb # (Auto) 0.4 (0.1-1.2) X10*3/uL Eos # (Auto) 0.0 (0.0-0.4) X10*3/uL Baso # (Auto) 0.0 (0.0-0.2) X10*3/uL Abs Immat Gran (auto) 0.03 (0.00-0.03) X10*3/uL Absolute Neuts (auto) 7.1 (2.0-8.3) x10*3/uL Absolute Nucleated RBC 0.000 (0.0-0.012) X10*3/uL Nucleated RBC % (auto) 0.0 (0.0-0.2) /100WBC Sodium 138 (135-145) mmol/L Potassium 4.3 (3.3-5.1) mmol/L Chloride 101 (96-108) mmol/L Carbon Dioxide 28 (22-29) mmol/L Anion Gap 13 (12-20) BUN 12 (9-16) mg/dL Creatinine 0.85 (0.5-1.4) mg/dL Estim Creat Clear Calc 72.4 Estimated GFR > 60 Random Glucose 143 H (60-115) mg/dL Calcium 9.3 D (8.4-10.2) mg/dL Total Bilirubin 0.5 (0.0-1.0) mg/dL Direct Bilirubin 0.2 (0.0-0.5) mg/dL AST 16 (5-31) U/L ALT 19 (0-31) U/L Alkaline Phosphatase 103 (39-117) U/L Troponin I High Sens (<3.5-17.0) ng/L Total Protein 7.0 (6.5-8.0) g/dL Albumin 4.2 (3.5-5.0) g/dL Lipase 28 (8-78) U/L COVID-19 ([facility]) Negative (Negative) COVID-19 Clin Com See Note 08/14/22 Range/Units 20:32 WBC (4.8-10.8) X10*3/uL RBC (4.20-5.50) X10*6/uL Hgb (12.0-16.0) g/dl Hct (37.0-47.0) % MCV (80.0-98.0) fL MCH (27.0-33.0) pg MCHC (31.0-35.0) g/dl RDW (11.0-16.0) % Plt Count (160-400) X10*3/uL MPV (9.4-12.3) fL Immature Gran % (Auto) (0.0-0.4) % Neut % (Auto) (45-73) % Lymph % (Auto) (20-40) % Lamb % (Auto) (2-11) % Eos % (Auto) (0-4) % Baso % (Auto) (0-2) % Lymph # (Auto) (1.2-4.9) X10*3/uL Lamb # (Auto) (0.1-1.2) X10*3/uL Eos # (Auto) (0.0-0.4) X10*3/uL Baso # (Auto) (0.0-0.2) X10*3/uL Abs Immat Gran (auto) (0.00-0.03) X10*3/uL Absolute Neuts (auto) (2.0-8.3) x10*3/uL Absolute Nucleated RBC (0.0-0.012) X10*3/uL Nucleated RBC % (auto) (0.0-0.2) /100WBC Sodium (135-145) mmol/L Potassium (3.3-5.1) mmol/L Chloride (96-108) mmol/L Carbon Dioxide (22-29) mmol/L Anion Gap (12-20) BUN (9-16) mg/dL Creatinine (0.5-1.4) mg/dL Estim Creat Clear Calc Estimated GFR Random Glucose (60-115) mg/dL Calcium (8.4-10.2) mg/dL Total Bilirubin (0.0-1.0) mg/dL Direct Bilirubin (0.0-0.5) mg/dL AST (5-31) U/L ALT (0-31) U/L Alkaline Phosphatase (39-117) U/L Troponin I High Sens < 3.5 (<3.5-17.0) ng/L Total Protein (6.5-8.0) g/dL Albumin (3.5-5.0) g/dL Lipase (8-78) U/L COVID-19 ([facility]) (Negative) COVID-19 Clin Com ECG Data ECG #1: Attestation: I personally reviewed and interpreted this ECG as follows: Interpretation: 2031: Normal sinus rhythm rate of 82, normal WI interval, QRS duration QTC interval, no ST segment elevation, no ST segment depression, no significant T-wave abnormalities, no PVCs, no PACs, no significant change compared to EKG dated 08/25/2021. This is a normal EKG. Discharge Plan Discharge Clinical Impression: Acute bronchitis, Chest pain, pleuritic Patient Disposition: Home, Self-Care Instructions: Acute Bronchitis (ED) Additional Instructions: Your blood work was normal. Your EKG was unremarkable. Your chest x-ray did not show any evidence for pneumonia but you do have thickening of your bronchial kent which is consistent with bronchitis (an infection of your breathing tubes). Continue taking azithromycin as prescribed by the urgent care clinic. Take amoxicillin 500 mg pills, 2 pills, every 6 hours (3 times a day) for 5 days. Take Tylenol (acetaminophen) 500 mg pills, 2 pills every 4 to 6 hours as needed for pain or fever. Follow-up with your doctor in 2 days. Please return to the emergency department if your symptoms get worse or if you develop any symptoms that are concerning to you. Prescriptions: New amoxicillin 500 mg capsule 1,000 mg PO TID 5 Days Qty: 30 0RF acetaminophen [Tylenol Extra Strength] 500 mg tablet 1,000 mg PO Q6H PRN (Reason: Pain or fever) Qty: 20 0RF No Action pantoprazole 40 mg tablet,delayed release (DR/EC) 40 mg PO BID Qty: 60 6RF gabapentin 100 mg capsule 1 cap PO BEDTIME fluoxetine [Prozac] 20 mg capsule 2 cap PO QAM prazosin 2 mg capsule 2 cap PO BEDTIME cephalexin 500 mg capsule 500 mg PO QID 7 Days Qty: 28 0RF metronidazole 500 mg tablet 500 mg PO BID 7 Days Qty: 14 0RF simethicone 180 mg capsule 180 mg PO QID 30 Days Qty: 120 6RF Rx Instructions: after meals Linzess 72 mcg capsule 72 mcg PO QAM Qty: 30 6RF senna 8.6 mg capsule 17.2 mg PO BEDTIME 30 Days Qty: 60 6RF dicyclomine 20 mg tablet 20 mg PO TID Qty: 90 6RF bupropion HCl 150 mg tablet extended release 24 hr 150 mg PO QAM levothyroxine 75 mcg tablet 75 mcg PO QAM sertraline 100 mg tablet 150 mg PO QAM hydrocortisone [Proctosol HC] 2.5 % cream with perineal applicator 1 appl [place] BID Qty: 30 6RF metoclopramide HCl [Reglan] 5 mg tablet 5 mg PO .TIDAC Qty: 90 3RF Rx Instructions: Provider aware of possible interactions with sertraline and antidepressant, monitoring Print Language: Qatari
[2022-08-15] MEDS: Amoxicillin 500 MG CAPSULE 1000 MG PO (00:51)
[2022-08-15] MEDS: Acetaminophen 325 MG TABLET 975 MG PO (00:51)
== END 2022-08-15 01:05 | disposition home or self-care (01) ==
PROVIDERS: Emergency Provider Emergency Medicine Emergency Medical Services; PCP Family Medicine
DX: R07.89 Other chest pain (principal); J20.9 Acute bronchitis, unspecified; R50.9 Fever, unspecified; Z20.822 Contact with and (suspected) exposure to COVID-19; E11.9 Type 2 diabetes mellitus without complications; I10 Essential (primary) hypertension
CPT/HCPCS: 36415; 80053; 82248; 83690; 84484; 85025; 87635; 93005; 99283; 99284

== ENCOUNTER → 2022-08-26 09:31 | Outpatient (BNVA) | payer MEDICAID, SELFPAY | PROVIDERS: PCP Family Medicine; Visit Provider Obstetrics & Gynecology | DX: N95.0 Postmenopausal bleeding (principal); D21.9 Benign neoplasm of connective and other soft tissue, unspecified | CPT/HCPCS: 99212 ==

== ENCOUNTER 2022-09-04 10:32 | Emergency (ER) | payer MEDICAID, SELFPAY ==
--- NOTE | ~2022-09-04 | XR_ITS ---
EXAMINATION: XR CHEST CLINICAL INFORMATION: Abnormal breath sounds. Covid positive COMPARISON: 08/06/2022 TECHNIQUE: 2 views of the chest were obtained. FINDINGS: Lungs clear. No pleural effusions. Heart and pulmonary vessels normal. XR/XR chest 2V IMPRESSION: No active disease.
[2022-09-04 10:36] VITALS: BP 108/57; PULSE 87; RESP 18; TEMP 37.4; O2SAT 97; BMI 33.6
[2022-09-04 10:56] LABS: COVID-19 Test Positive (Negative); Strep A Nucleic Acid Negative (Negative)
[2022-09-04 11:02] LABS: IDNOW Serial# 9DB6401D; Influenza A Negative (Negative); Influenza B2 Negative (Negative)
--- NOTE | 2022-09-04 12:13 | ED.URI ---
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 Patient lives home alone in his denies any sick contacts. She was just seen by her PCP a couple of weeks ago and had vaccinations for shingles, influenza. She is up-to-date on her COVID vaccines. She states she was recently treated for bacterial pneumonia and has completed antibiotics. She states her cough is dry, was worse last night than it is today. She is tolerating p.o.. She denies any shortness of breath or chest pain. MD elicited complaint: cough and other (Diffuse body aches) Pertinent past history: pneumonia Onset (ago): day(s) (1) Consistency: intermittent Severity: moderate Able to tolerate fluids by mouth: Yes Exacerbating factors: nothing Relieving factors: nothing Associated symptoms: fever, chills, myalgias, headache, sore throat and cough Treatments prior to arrival: none Related Data Home Medications Medication Instructions Recorded Confirmed fluoxetine 20 mg capsule (Prozac) 2 cap PO QAM 06/10/21 06/10/21 gabapentin 100 mg capsule 1 cap PO BEDTIME 06/10/21 06/10/21 prazosin 2 mg capsule 2 cap PO BEDTIME 06/10/21 06/10/21 bupropion HCl 150 mg 24 hr tablet, 150 mg PO QAM 05/23/22 extended release levothyroxine 75 mcg tablet 75 mcg PO QAM 05/23/22 sertraline 100 mg tablet 150 mg PO QAM 05/23/22 Previous Rx's Medication Instructions Recorded simethicone 180 mg capsule 180 mg PO QID 30 days #120 caps 12/17/21 dicyclomine 20 mg tablet 20 mg PO TID #90 tabs 02/07/22 linaclotide 72 mcg capsule 72 mcg PO QAM #30 caps 02/07/22 (Linzess) sennosides 8.6 mg capsule (senna) 17.2 mg PO BEDTIME constipation 30 02/07/22 days #60 caps hydrocortisone 2.5 % topical cream 1 appl [place] BID hemorrhoids #30 grams 05/23/22 with perineal applicator (Proctosol HC) metoclopramide HCl 5 mg tablet 5 mg PO .TIDAC #90 tabs 05/23/22 (Reglan) pantoprazole 40 mg tablet,delayed 40 mg PO BID #60 tabs 05/27/22 release metronidazole 500 mg tablet 500 mg PO BID 7 days #14 tabs 06/04/22 cephalexin 500 mg capsule 500 mg PO QID 7 days #28 caps 06/07/22 acetaminophen 500 mg tablet 1,000 mg PO Q6H PRN Pain or fever 08/15/22 (Tylenol Extra Strength) #20 tabs amoxicillin 500 mg capsule 1,000 mg PO TID 5 days #30 caps 08/15/22 Allergies Allergy/AdvReac Type Severity Reaction Status Date / Time No Known Allergies Allergy Verified 06/04/22 10:23 [No Known Allergies*] Review of Systems Review of Systems: Constitutional: +Fever, + Chills ENT/Mouth: + sore throat, No Rhinorrhea, No Swallowing Difficulty Cardiovascular: No Chest Pain, No SOB Respiratory: + Cough, No Sputum, No Wheezing, No dyspnea Gastrointestinal: No Nausea, No Vomiting, No Diarrhea, No abdominal Pain Genitourinary: No Dysuria, No Urinary Frequency, No Hematuria Musculoskeletal: + joint pain, + Myalgias Skin: No Skin Lesions, No rash Neuro: No Weakness, No Numbness, No Dizziness, No Headache Heme/Lymph: No Bruising, No Lymphadenopathy PMFSH Past Medical History Medical History Bacterial vaginosis Diabetes Hypertension LLQ abdominal pain Surgical History History of esophagogastroduodenoscopy (EGD) Hx of colonoscopy Family History Family History Father Family history of prostate problems Mother Tumor Social History Social History Household Members: None Alcohol intake: never Patient Tobacco Use Status: Never used Tobacco Cigarettes Per Day: 2 Advance Directives: No Advance Directives Information Provided: Yes Current occupational status: disabled Physical Exam Vital Signs: Vital Signs: Last Vital Signs Temp 99.4 F 09/04/22 10:36 Pulse 87 09/04/22 10:36 Resp 18 09/04/22 10:36 BP 108/57 L 09/04/22 10:36 Pulse Ox 97 09/04/22 10:36 O2 Del Method 09/04/22 10:36 BMI result Body Mass Index 33.6 Appearance: Alert. Oriented X3. No acute distress. Eyes: Pupils equal, round and reactive to light. ENT: Pharynx normal. No tonsillar swelling or exudate Neck: Normal inspection. Neck supple. CVS: Normal heart rate and rhythm. Pulses normal. Respiratory: No respiratory distress. Breath sounds with rales in RLL only, no wheezing or rhonchi Abdomen: Soft and nontender. +BS x4 Skin: Skin warm and dry. Normal skin color. Normal skin turgor. No rashes. Extremities: No lower extremity edema. No calf tenderness Neuro: Oriented X 3. No motor deficit. No sensory deficit. Course Course Course Narrative: 62-year-old female presents to the ER for evaluation of a cough and body aches that started yesterday. She has a history of hypertension diabetes, she is fully vaccinated for COVID. On arrival to the ER today her vital signs are normal. Her physical exam is revealing for rales in the right lower lobe only. Given her recent bacterial pneumonia will get chest x-ray to ensure resolution. She is found to be COVID positive. 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 Reevaluation(s) Reevaluation #1: Chest x-ray is normal. At this time she is stable for HI home with supportive care. Return precautions were discussed. MDM - URI/Sore Throat Lab Data Labs: Lab Results 09/04/22 09/04/22 09/04/22 Range/Units 10:41 10:41 10:41 COVID-19 ([facility]) Positive A (Negative) COVID-19 Clin Com See Note Influenza Type A ([facility]) Negative (Negative) Influenza Type B ([facility]) Negative (Negative) Influenza A & B Note See Note S. pyogenes GrpA MAYTE Negative (Negative) Discharge Plan Discharge Clinical Impression: COVID-19 Patient Disposition: Home, Self-Care Instructions: Covid-19 Viral Syndrome and Novel Coronavirus (ED) Hey/Ath Additional Instructions: You were found to be COVID-19 POSITIVE today. Your chest x-ray and oxygen levels were normal. Rest. Drink plenty of fluids. Take over the counter cold/flu medications as needed for your symptoms. Take Tylenol and/or Motrin as needed for fevers and body aches. Follow up with your doctor this week. If you shortness of breath worsens , if you develop difficulty breathing or any other concerning symptom come back to the ER for further evaluation. Se encontr? que usted es COVID-19 POSITIVO hoy. [place] radiograf?a de t?rax y los niveles de ox?paris fueron normales. Descansar. Beber mucho l?quido. [place] medicamentos de venta jo ann para el resfriado o la gripe seg?n sea necesario para juan s?ntomas. [place] Tylenol y/o Motrin seg?n sea necesario para la fiebre y los maurice corporales. [place] un seguimiento con cordova m?dico esta semana. Si cordova dificultad para respirar empeora, si desarrolla dificultad para respirar o cualquier otro s?ntoma preocupante, regrese a la suresh de emergencias para jordan evaluaci?n adicional. Prescriptions: No Action pantoprazole 40 mg tablet,delayed release (DR/EC) 40 mg PO BID Qty: 60 6RF gabapentin 100 mg capsule 1 cap PO BEDTIME fluoxetine [Prozac] 20 mg capsule 2 cap PO QAM prazosin 2 mg capsule 2 cap PO BEDTIME cephalexin 500 mg capsule 500 mg PO QID 7 Days Qty: 28 0RF amoxicillin 500 mg capsule 1,000 mg PO TID 5 Days Qty: 30 0RF acetaminophen [Tylenol Extra Strength] 500 mg tablet 1,000 mg PO Q6H PRN (Reason: Pain or fever) Qty: 20 0RF metronidazole 500 mg tablet 500 mg PO BID 7 Days Qty: 14 0RF simethicone 180 mg capsule 180 mg PO QID 30 Days Qty: 120 6RF Rx Instructions: after meals Linzess 72 mcg capsule 72 mcg PO QAM Qty: 30 6RF senna 8.6 mg capsule 17.2 mg PO BEDTIME 30 Days Qty: 60 6RF dicyclomine 20 mg tablet 20 mg PO TID Qty: 90 6RF bupropion HCl 150 mg tablet extended release 24 hr 150 mg PO QAM levothyroxine 75 mcg tablet 75 mcg PO QAM sertraline 100 mg tablet 150 mg PO QAM hydrocortisone [Proctosol HC] 2.5 % cream with perineal applicator 1 appl [place] BID Qty: 30 6RF metoclopramide HCl [Reglan] 5 mg tablet 5 mg PO .TIDAC Qty: 90 3RF Rx Instructions: Provider aware of possible interactions with sertraline and antidepressant, monitoring
[2022-09-04] MEDS: Acetaminophen 325 MG TABLET 975 MG PO (12:26)
== END 2022-09-04 14:15 | disposition home or self-care (01) ==
PROVIDERS: Emergency Provider Student in an Organized Health Care Education/Training Program; PCP Family Medicine
DX: U07.1 COVID-19 (principal); E11.9 Type 2 diabetes mellitus without complications; I10 Essential (primary) hypertension
CPT/HCPCS: 71046; 87502; 87635; 87651; 99283

== ENCOUNTER 2022-10-22 10:41 | Outpatient (REF) | payer MEDICAID, SELFPAY ==
--- NOTE | ~2022-10-22 | XR_ITS ---
EXAMINATION: XR CHEST CLINICAL INFORMATION: Cough COMPARISON: Previous chest x-ray most recent August 2022 TECHNIQUE: 2 views of the chest were obtained. FINDINGS: No significant abnormality is noted involving the heart, lungs, mediastinum, bony thorax or soft tissues. Degenerative changes of the spine. XR/XR chest 2V IMPRESSION: No evidence for acute disease in the chest.
--- NOTE | ~2022-10-22 | XR_ITS ---
EXAMINATION: XR SHOULDER, RIGHT CLINICAL INFORMATION: Right shoulder pain COMPARISON: None TECHNIQUE: AP external rotation, Grashey, scapular Y, and axillary views of the right shoulder. FINDINGS: Bone alignment is normal. No fracture or dislocation. Normal glenohumeral joint. Arthritis at the acromioclavicular joint. Normal soft tissues. XR/XR shoulder RT min 2V IMPRESSION: Arthritis at the acromioclavicular joint.
== END 2022-10-22 10:42 | disposition home or self-care (01) ==
LOC: HO.XRAY 10:41
PROVIDERS: PCP Family Medicine; Visit Provider Family Medicine
DX: M25.511 Pain in right shoulder (principal); R05.9 Cough, unspecified
CPT/HCPCS: 71046; 73030

== ENCOUNTER → 2022-12-24 12:43 | Outpatient (BNVA) | payer MEDICAID, SELFPAY | PROVIDERS: PCP Family Medicine; Visit Provider Nurse Practitioner | DX: K59.04 Chronic idiopathic constipation (principal); K21.9 Gastro-esophageal reflux disease without esophagitis; R14.0 Abdominal distension (gaseous) | CPT/HCPCS: 99212 ==

== ENCOUNTER 2023-01-05 13:43 | Emergency (ER) | payer MEDICAID, SELFPAY ==
[2023-01-05 15:44] VITALS: BP 140/75; PULSE 51; RESP 16; TEMP 36.1; O2SAT 97; BMI 32.9
--- NOTE | 2023-01-05 15:44 | ED_ITS ---
HPI - General Adult General Chief complaint: Abdominal Pain <ENDY Lane - Last Filed: 01/05/23 15:47> Stated complaint: vaginal bleeding <ENDY Lane - Last Filed: 01/05/23 15:47> Time Seen by Provider: 01/05/23 21:47 <ENDY Lane - Last Filed: 01/05/23 15:47> Source: patient and driller portable <Rolando Camilo MD - Last Filed: 01/05/23 22:16> Mode of arrival: ambulatory <Rolando Camilo MD - Last Filed: 01/05/23 22:16> Limitations: no limitations <Rolando Camilo MD - Last Filed: 01/05/23 22:16> History of Present Illness HPI narrative: 62-year-old female came in for evaluation of vaginal spotting. This is a 62-year-old female postmenopausal presented with 1 day of light vaginal spotting used 1 pad all day today, declined any chest pain or weakness, while patient in the emergency room waiting no further bleeding, patient was seen and evaluated by OBGYN for postmenopausal vaginal bleeding, Dr. Alonso's note was reviewed, patient had ultrasound done 4 months ago, as per Dr. Alonso's note to return in a year for follow-up. Patient otherwise declined any loss of weight, no heavy vaginal bleeding, no flank pain, no dysuria, no frequency urination , no fever, no chills. <Rolando Camilo MD - Last Filed: 01/05/23 22:16> Related Data Home medications: Home Medications Medication Instructions Recorded Confirmed fluoxetine 20 mg capsule (Prozac) 2 cap PO QAM 06/10/21 06/10/21 gabapentin 100 mg capsule 1 cap PO BEDTIME 06/10/21 06/10/21 prazosin 2 mg capsule 2 cap PO BEDTIME 06/10/21 06/10/21 bupropion HCl 150 mg 24 hr tablet, 150 mg PO QAM 05/23/22 extended release levothyroxine 75 mcg tablet 75 mcg PO QAM 05/23/22 sertraline 100 mg tablet 150 mg PO QAM 05/23/22 Previous Rx's Medication Instructions Recorded hydrocortisone 2.5 % topical cream 1 appl OK BID hemorrhoids #30 grams 05/23/22 with perineal applicator (Proctosol HC) metronidazole 500 mg tablet 500 mg PO BID 7 days #14 tabs 06/04/22 cephalexin 500 mg capsule 500 mg PO QID 7 days #28 caps 06/07/22 acetaminophen 500 mg tablet 1,000 mg PO Q6H PRN Pain or fever 08/15/22 (Tylenol Extra Strength) #20 tabs amoxicillin 500 mg capsule 1,000 mg PO TID 5 days #30 caps 08/15/22 sennosides 8.6 mg capsule (senna) 17.2 mg PO BEDTIME constipation 30 10/30/22 days #60 caps dicyclomine 20 mg tablet 20 mg PO TID #90 tabs 12/24/22 linaclotide 72 mcg capsule 72 mcg PO .q2pm #30 caps 12/24/22 (Linzess) metoclopramide HCl 5 mg tablet 5 mg PO .TIDAC #90 tabs 12/24/22 (Reglan) pantoprazole 40 mg tablet,delayed 40 mg PO BID #60 tabs 12/24/22 release simethicone 180 mg capsule 180 mg PO QID 30 days #120 caps 12/24/22 nitrofurantoin 100 mg PO Q12H 7 days #14 caps 01/05/23 monohydrate/macrocrystals 100 mg capsule (Macrobid) <ENDY Lane - Last Filed: 01/05/23 15:47> Allergies/adverse reactions: Allergies Allergy/AdvReac Type Severity Reaction Status Date / Time No Known Allergies Allergy Verified 06/04/22 10:23 [No Known Allergies*] <ENDY Lane - Last Filed: 01/05/23 15:47> Review of Systems Review of Systems: All other systems are reviewed and are negative Constitutional: Reports as per HPI and Reports no additional constitutional complaints Eyes: Reports as per HPI and Reports no additional eye complaints Reports system reviewed and no additional complaints, except as documented Cardiovascular: Reports as per HPI and Reports no additional cardiovascular complaints Respiratory: Reports as per HPI and Reports no additional respiratory complaints Gastrointestinal: Reports as per HPI and Reports no additional gastrointestinal complaints Genitourinary: Reports no additional female genitourinary complaints Musculoskeletal: Reports no additional musculoskeletal complaints Skin/Breast: Reports system reviewed and no additional complaints, except as docu Psychiatric: Reports no additional psychiatric complaints Endocrine: Reports no additional endocrine complaints Hematologic/Lymphatic: Reports no additional hematologic/lymphatic complaints Allergic/Immunologic: Reports no additional allergic/immunologic complaints Reports system reviewed and no additional complaints, except as documented and Reports Abnormal speech present <Rolando Camilo MD - Last Filed: 01/05/23 22:16> FORMERLY [facility] Past Medical History Medical History: Medical History Bacterial vaginosis Diabetes Hypertension LLQ abdominal pain <ENDY Lane - Last Filed: 01/05/23 15:47> Surgical History: Surgical History History of esophagogastroduodenoscopy (EGD) Hx of colonoscopy <ENDY Lane - Last Filed: 01/05/23 15:47> Family History Family History: Family History Father Family history of prostate problems Mother Tumor <ENDY Lane - Last Filed: 01/05/23 15:47> Social History Social History: Social History Household Members: None Alcohol intake: never Patient Tobacco Use Status: Never used Tobacco Cigarettes Per Day: 2 Advance Directives: No Advance Directives Information Provided: No Current occupational status: disabled <ENDY Lane - Last Filed: 01/05/23 15:47> Physical Exam ED Vital Signs: Vital Signs - 24 hr 01/05/23 15:44 Temperature 97 F Pulse Rate 51 Respiratory Rate 16 Blood Pressure 140/75 H Pulse Oximetry 97 Oxygen Delivery Method Room Air BMI result Body Mass Index 32.9 <ENDY [address] - Last Filed: 01/05/23 15:47> Vital Signs - 24 hr 01/05/23 15:44 Temperature 97 F Pulse Rate 51 Respiratory Rate 16 Blood Pressure 140/75 H Pulse Oximetry 97 Oxygen Delivery Method Room Air BMI result Body Mass Index 32.9 vital signs have been reviewed as appeared to be correct. Blood pressure normal. Heart rate normal. Respiration rate normal. Temperature normal. Oxygen saturation normal. <Rolando Camilo MD - Last Filed: 01/05/23 22:16> Appearance: Alert. Oriented X3. No acute distress. Head: Normal external exam. Normocephalic. Atraumatic. No Li signs noted. No raccoon eyes noted Eyes: PERRLA. EOMI. Conjunctiva and sclera normal. Eyelids normal. ENT: TM's Normal. Pharynx normal. Uvula midline. Moist mucous membranes. No trismus noted. No drooling noted. No muffled voice noted. Neck: Normal inspection. Neck supple. FROM. No adenopathy. Thyroid Normal. No meningeal signs. No neck mass noted. CVS: Normal heart rate and rhythm. Heart sound normal. No murmurs noted. Pulses normal throughout. Respiratory: No respiratory distress. Painless inspiration. Breath sounds normal. No wheezes/rales/rhonchi noted. Chest nontender. No accessory muscle usage noted or decreased air movement noted. Abdomen: Soft and nontender. Bowel sounds normal in all 4 quadrants. No distention noted. No organomegaly noted. No visible injury noted. Pelvic exam: Deferred Vaginal bleeding has stopped as per patient. Back: No CVA tenderness. Full range of motion noted. Skin: Skin warm and dry. Normal skin color. Normal skin turgor. No rashes/lesions/lacerations noted. Extremities: No lower extremity edema. Extremities exhibit normal range of motion. Extremities nontender. Neuro: Oriented X 3. Cranial nerve exam: II-XII are grossly intact No motor deficit. No sensory deficit. Reflexes normal. <Rolando Camilo MD - Last Filed: 01/05/23 22:16> Course Course Course Narrative: RME - 62 yo female with history of post-menopausal bleeding seen by Dr. Alonso for this in past who presents to the ER for 2 days of light vaginal bleeding/spotting along with generalized abdominal pains and headaches. Labs ordered. Has pelvic U/S in June <ENDY Lane - Last Filed: 01/05/23 15:47> Assessment and plan. 62-year-old female with history of post menopause vaginal bleeding patient was seen and evaluated by OBGYN in the past and scheduled to follow up with him within a year. Patient today is hemodynamically stable with stable H&H no vaginal bleeding currently, patient was instructed to follow up with Dr. Alonso call his office tomorrow and schedule an outpatient appointment with him. <Rolando Camilo MD - Last Filed: 01/05/23 22:16> Medical Decision Making Differential Diagnosis Differential Diagnoses: The differential diagnosis associated with the presentation includes <Rolando Camilo MD - Last Filed: 01/05/23 22:16> Vaginal bleeding, abnormal vaginal bleeding disorder, UTI, anemia. <Ronni Camilo MD - Last Filed: 01/05/23 22:16> Lab Data MDM Lab Attestation statement: I reviewed the patient's lab results. <Rolando Camilo MD - Last Filed: 01/05/23 22:16> Result Diagrams: 01/05/23 18:54 01/05/23 16:08 <ENDY Lane - Last Filed: 01/05/23 15:47> Labs: Lab Results 01/05/23 01/05/23 01/05/23 Range/Units 16:08 16:08 16:08 WBC (4.8-10.8) X10*3/uL RBC (4.20-5.50) X10*6/uL Hgb (12.0-16.0) g/dl Hct (37.0-47.0) % MCV (80.0-98.0) fL MCH (27.0-33.0) pg MCHC (31.0-35.0) g/dl RDW (11.0-16.0) % Plt Count (160-400) X10*3/uL MPV (9.4-12.3) fL Immature Gran % (Auto) (0.0-0.4) % Neut % (Auto) (45-73) % Lymph % (Auto) (20-40) % [place] % (Auto) (2-11) % Eos % (Auto) (0-4) % Baso % (Auto) (0-2) % Lymph # (Auto) (1.2-4.9) X10*3/uL [place] # (Auto) (0.1-1.2) X10*3/uL Eos # (Auto) (0.0-0.4) X10*3/uL Baso # (Auto) (0.0-0.2) X10*3/uL Abs Immat Gran (auto) (0.00-0.03) X10*3/uL Absolute Neuts (auto) (2.0-8.3) x10*3/uL Absolute Nucleated RBC (0.0-0.012) X10*3/uL Nucleated RBC % (auto) (0.0-0.2) /100WBC Sodium 141 (135-145) mmol/L Potassium 4.5 (3.3-5.1) mmol/L Chloride 108 (96-108) mmol/L Carbon Dioxide 26 (22-29) mmol/L Anion Gap 12 (12-20) BUN 16 (9-16) mg/dL Creatinine 0.80 (0.5-1.4) mg/dL Estim Creat Clear Calc 74.0 Estimated GFR > 60 Random Glucose 78 (60-115) mg/dL Calcium 9.4 (8.4-10.2) mg/dL Magnesium 1.9 (1.6-2.6) mg/dL Total Bilirubin 0.5 (0.0-1.0) mg/dL Direct Bilirubin < 0.2 (0.0-0.5) mg/dL AST 14 (5-31) U/L ALT 15 (0-31) U/L Alkaline Phosphatase 100 (39-117) U/L Total Protein 6.6 (6.5-8.0) g/dL Albumin 4.0 (3.5-5.0) g/dL Lipase 46 (8-78) U/L Urine Color Urine Appearance Urine pH (5.0-9.0) Ur Specific [place] (1.005-1.025) Urine Protein (Neg-Trace) mg/dL Urine Glucose (UA) (Negative) mg/dL Urine Ketones (Negative) mg/dL Urine Blood (Negative) Urine Nitrite (Negative) Ur Leukocyte Esterase (Negative) Urine RBC (0-2) /HPF Urine WBC (0-5) /HPF Ur Squamous Epith Cells (0-2) /HPF Urine Bacteria (None Seen) Hyaline Casts (0-2) /LPF COVID-19 ([facility]) Negative (Negative) COVID-19 Clin Com See Note Influenza Type A (MAYTE) Negative (Negative) Influenza Type B (MAYTE) Negative (Negative) Influenza A & B Note See Note 01/05/23 01/05/23 Range/Units 16:08 18:54 WBC 9.9 (4.8-10.8) X10*3/uL RBC 4.63 (4.20-5.50) X10*6/uL Hgb 13.4 (12.0-16.0) g/dl Hct 42.4 (37.0-47.0) % MCV 91.6 (80.0-98.0) fL MCH 28.9 (27.0-33.0) pg MCHC 31.6 (31.0-35.0) g/dl RDW 14.3 (11.0-16.0) % Plt Count 273 (160-400) X10*3/uL MPV 10.8 (9.4-12.3) fL Immature Gran % (Auto) 0.2 (0.0-0.4) % Neut % (Auto) 64.6 (45-73) % Lymph % (Auto) 26.5 (20-40) % [place] % (Auto) 5.5 (2-11) % Eos % (Auto) 2.8 (0-4) % Baso % (Auto) 0.4 (0-2) % Lymph # (Auto) 2.6 (1.2-4.9) X10*3/uL [place] # (Auto) 0.5 (0.1-1.2) X10*3/uL Eos # (Auto) 0.3 (0.0-0.4) X10*3/uL Baso # (Auto) 0.0 (0.0-0.2) X10*3/uL Abs Immat Gran (auto) 0.02 (0.00-0.03) X10*3/uL Absolute Neuts (auto) 6.4 (2.0-8.3) x10*3/uL Absolute Nucleated RBC 0.000 (0.0-0.012) X10*3/uL Nucleated RBC % (auto) 0.0 (0.0-0.2) /100WBC Sodium (135-145) mmol/L Potassium (3.3-5.1) mmol/L Chloride (96-108) mmol/L Carbon Dioxide (22-29) mmol/L Anion Gap (12-20) BUN (9-16) mg/dL Creatinine (0.5-1.4) mg/dL Estim Creat Clear Calc Estimated GFR Random Glucose (60-115) mg/dL Calcium (8.4-10.2) mg/dL Magnesium (1.6-2.6) mg/dL Total Bilirubin (0.0-1.0) mg/dL Direct Bilirubin (0.0-0.5) mg/dL AST (5-31) U/L ALT (0-31) U/L Alkaline Phosphatase (39-117) U/L Total Protein (6.5-8.0) g/dL Albumin (3.5-5.0) g/dL Lipase (8-78) U/L Urine Color Dark Yellow Urine Appearance Cloudy Urine pH 5.5 (5.0-9.0) Ur Specific [place] 1.025 (1.005-1.025) Urine Protein Negative (Neg-Trace) mg/dL Urine Glucose (UA) Negative (Negative) mg/dL Urine Ketones Trace (Negative) mg/dL Urine Blood Trace H (Negative) Urine Nitrite Negative (Negative) Ur Leukocyte Esterase Moderate (2+) H (Negative) Urine RBC 3-5 H (0-2) /HPF Urine WBC 11-20 H (0-5) /HPF Ur Squamous Epith Cells 6-10 (0-2) /HPF Urine Bacteria 1+ (None Seen) Hyaline Casts 6-10 (0-2) /LPF COVID-19 ([facility]) (Negative) COVID-19 Clin Com Influenza Type A ([facility]TE) (Negative) Influenza Type B (MAYTE) (Negative) Influenza A & B Note <ENDY Lane - Last Filed: 01/05/23 15:47> Lab Results 01/05/23 01/05/23 01/05/23 Range/Units 16:08 16:08 16:08 WBC (4.8-10.8) X10*3/uL RBC (4.20-5.50) X10*6/uL Hgb (12.0-16.0) g/dl Hct (37.0-47.0) % MCV (80.0-98.0) fL MCH (27.0-33.0) pg MCHC (31.0-35.0) g/dl RDW (11.0-16.0) % Plt Count (160-400) X10*3/uL MPV (9.4-12.3) fL Immature Gran % (Auto) (0.0-0.4) % Neut % (Auto) (45-73) % Lymph % (Auto) (20-40) % [place] % (Auto) (2-11) % Eos % (Auto) (0-4) % Baso % (Auto) (0-2) % Lymph # (Auto) (1.2-4.9) X10*3/uL [place] # (Auto) (0.1-1.2) X10*3/uL Eos # (Auto) (0.0-0.4) X10*3/uL Baso # (Auto) (0.0-0.2) X10*3/uL Abs Immat Gran (auto) (0.00-0.03) X10*3/uL Absolute Neuts (auto) (2.0-8.3) x10*3/uL Absolute Nucleated RBC (0.0-0.012) X10*3/uL Nucleated RBC % (auto) (0.0-0.2) /100WBC Sodium 141 (135-145) mmol/L Potassium 4.5 (3.3-5.1) mmol/L Chloride 108 (96-108) mmol/L Carbon Dioxide 26 (22-29) mmol/L Anion Gap 12 (12-20) BUN 16 (9-16) mg/dL Creatinine 0.80 (0.5-1.4) mg/dL Estim Creat Clear Calc 74.0 Estimated GFR > 60 Random Glucose 78 (60-115) mg/dL Calcium 9.4 (8.4-10.2) mg/dL Magnesium 1.9 (1.6-2.6) mg/dL Total Bilirubin 0.5 (0.0-1.0) mg/dL Direct Bilirubin < 0.2 (0.0-0.5) mg/dL AST 14 (5-31) U/L ALT 15 (0-31) U/L Alkaline Phosphatase 100 (39-117) U/L Total Protein 6.6 (6.5-8.0) g/dL Albumin 4.0 (3.5-5.0) g/dL Lipase 46 (8-78) U/L Urine Color Urine Appearance Urine pH (5.0-9.0) Ur Specific [place] (1.005-1.025) Urine Protein (Neg-Trace) mg/dL Urine Glucose (UA) (Negative) mg/dL Urine Ketones (Negative) mg/dL Urine Blood (Negative) Urine Nitrite (Negative) Ur Leukocyte Esterase (Negative) Urine RBC (0-2) /HPF Urine WBC (0-5) /HPF Ur Squamous Epith Cells (0-2) /HPF Urine Bacteria (None Seen) Hyaline Casts (0-2) /LPF COVID-19 ([facility]) Negative (Negative) COVID-19 Clin Com See Note Influenza Type A ([facility]) Negative (Negative) Influenza Type B ([facility]) Negative (Negative) Influenza A & B Note See Note 01/05/23 01/05/23 Range/Units 16:08 18:54 WBC 9.9 (4.8-10.8) X10*3/uL RBC 4.63 (4.20-5.50) X10*6/uL Hgb 13.4 (12.0-16.0) g/dl Hct 42.4 (37.0-47.0) % MCV 91.6 (80.0-98.0) fL MCH 28.9 (27.0-33.0) pg MCHC 31.6 (31.0-35.0) g/dl RDW 14.3 (11.0-16.0) % Plt Count 273 (160-400) X10*3/uL MPV 10.8 (9.4-12.3) fL Immature Gran % (Auto) 0.2 (0.0-0.4) % Neut % (Auto) 64.6 (45-73) % Lymph % (Auto) 26.5 (20-40) % [place] % (Auto) 5.5 (2-11) % Eos % (Auto) 2.8 (0-4) % Baso % (Auto) 0.4 (0-2) % Lymph # (Auto) 2.6 (1.2-4.9) X10*3/uL [place] # (Auto) 0.5 (0.1-1.2) X10*3/uL Eos # (Auto) 0.3 (0.0-0.4) X10*3/uL Baso # (Auto) 0.0 (0.0-0.2) X10*3/uL Abs Immat Gran (auto) 0.02 (0.00-0.03) X10*3/uL Absolute Neuts (auto) 6.4 (2.0-8.3) x10*3/uL Absolute Nucleated RBC 0.000 (0.0-0.012) X10*3/uL Nucleated RBC % (auto) 0.0 (0.0-0.2) /100WBC Sodium (135-145) mmol/L Potassium (3.3-5.1) mmol/L Chloride (96-108) mmol/L Carbon Dioxide (22-29) mmol/L Anion Gap (12-20) BUN (9-16) mg/dL Creatinine (0.5-1.4) mg/dL Estim Creat Clear Calc Estimated GFR Random Glucose (60-115) mg/dL Calcium (8.4-10.2) mg/dL Magnesium (1.6-2.6) mg/dL Total Bilirubin (0.0-1.0) mg/dL Direct Bilirubin (0.0-0.5) mg/dL AST (5-31) U/L ALT (0-31) U/L Alkaline Phosphatase (39-117) U/L Total Protein (6.5-8.0) g/dL Albumin (3.5-5.0) g/dL Lipase (8-78) U/L Urine Color Dark Yellow Urine Appearance Cloudy Urine pH 5.5 (5.0-9.0) Ur Specific [place] 1.025 (1.005-1.025) Urine Protein Negative (Neg-Trace) mg/dL Urine Glucose (UA) Negative (Negative) mg/dL Urine Ketones Trace (Negative) mg/dL Urine Blood Trace H (Negative) Urine Nitrite Negative (Negative) Ur Leukocyte Esterase Moderate (2+) H (Negative) Urine RBC 3-5 H (0-2) /HPF Urine WBC 11-20 H (0-5) /HPF Ur Squamous Epith Cells 6-10 (0-2) /HPF Urine Bacteria 1+ (None Seen) Hyaline Casts 6-10 (0-2) /LPF COVID-19 ([facility]) (Negative) COVID-19 Clin Com Influenza Type A ([facility]) (Negative) Influenza Type B ([facility]) (Negative) Influenza A & B Note <Rolando Camilo MD - Last Filed: 01/05/23 22:16> Discharge Plan Discharge Clinical Impression: Postmenopausal bleeding, UTI (urinary tract infection) <ENDY Lane - Last Filed: 01/05/23 15:47> Patient Disposition: Home, Self-Care <ENDY Lane - Last Filed: 01/05/23 15:47> Instructions: Dysfunctional Uterine Bleeding (ED), Urinary Tract Infection in Women (ED) <ENDY Lane - Last Filed: 01/05/23 15:47> Prescriptions: New nitrofurantoin monohyd/m-cryst [Macrobid] 100 mg capsule 100 mg PO Q12H 7 Days Qty: 14 0RF Rx Instructions: must administer with a meal/food No Action senna 8.6 mg capsule 17.2 mg PO BEDTIME 30 Days Qty: 60 6RF gabapentin 100 mg capsule 1 cap PO BEDTIME fluoxetine [Prozac] 20 mg capsule 2 cap PO QAM prazosin 2 mg capsule 2 cap PO BEDTIME cephalexin 500 mg capsule 500 mg PO QID 7 Days Qty: 28 0RF amoxicillin 500 mg capsule 1,000 mg PO TID 5 Days Qty: 30 0RF acetaminophen [Tylenol Extra Strength] 500 mg tablet 1,000 mg PO Q6H PRN (Reason: Pain or fever) Qty: 20 0RF metronidazole 500 mg tablet 500 mg PO BID 7 Days Qty: 14 0RF bupropion HCl 150 mg tablet extended release 24 hr 150 mg PO QAM levothyroxine 75 mcg tablet 75 mcg PO QAM sertraline 100 mg tablet 150 mg PO QAM hydrocortisone [Proctosol HC] 2.5 % cream with perineal applicator 1 appl OK BID Qty: 30 6RF simethicone 180 mg capsule 180 mg PO QID 30 Days Qty: 120 6RF Rx Instructions: after meals Linzess 72 mcg capsule 72 mcg PO .q2pm Qty: 30 6RF pantoprazole 40 mg tablet,delayed release (DR/EC) 40 mg PO BID Qty: 60 6RF metoclopramide HCl [Reglan] 5 mg tablet 5 mg PO .TIDAC Qty: 90 6RF Rx Instructions: Provider aware of possible interactions with sertraline and antidepressant, monitoring dicyclomine 20 mg tablet 20 mg PO TID Qty: 90 6RF <ENDY Lane - Last Filed: 01/05/23 15:47> Referrals: Libra Barone MD [Primary Care Provider] - Xander Alonso MD [Physician] - <ENDY Lane - Last Filed: 01/05/23 15:47>
[2023-01-05 16:17] LABS: Appearance Urine Cloudy; Color Urine Dark Yellow; Glucose Urine UA Negative (Negative); Leukocyte Esterase Urine Moderate (2+) (Negative); Nitrite Urine Negative (Negative); PH 5.5 (5.0-9.0); Specific Gravity - Urine 1.025 (1.005-1.025); UMIC TRIGGER UACC YES; Urine Blood Trace (Negative); Urine Ketones Trace mg/dL (Negative); Urine Protein Negative (Neg-Trace)
[2023-01-05 16:31] LABS: Bacteria Urine 1+ (None Seen); UACC Culture Trigger YES
[2023-01-05 16:33] LABS: Alanine Aminotransferase 15 U/L (0-31); Alkaline Phosphatase 100 U/L (39-117); Anion Gap 12 (12-20); Aspartate Amino Transferase 14 U/L (5-31); Bilirubin Direct < 0.2 mg/dL (0.0-0.5); Bilirubin Total 0.5 mg/dL (0.0-1.0); Blood Urea Nitrogen 16 mg/dL (9-16); Calcium 9.4 mg/dL (8.4-10.2); Carbon Dioxide 26 mmol/L (22-29); Chloride 108 mmol/L (96-108); Estimated Glomerular Filt Rate > 60; Glucose Random 78 mg/dL (60-115); Lipase 46 U/L (8-78); Magnesium 1.9 mg/dL (1.6-2.6); Potassium 4.5 mmol/L (3.3-5.1); Sodium 141 mmol/L (135-145); Total Protein 6.6 g/dL (6.5-8.0)
[2023-01-05 16:35] LABS: COVID-19 Test Negative (Negative); IDNOW Serial# 9DB6401D; IDNOW Serial# BCCEAD1C; Influenza A Negative (Negative); Influenza B2 Negative (Negative)
[2023-01-05 19:01] LABS: MANUAL DIFF FLAG NO
[2023-01-05 19:02] LABS: Basophils Percent Auto 0.4 % (0-2); Eosinophils Absolute Auto 0.3 X10*3/uL (0.0-0.4); Eosinophils Percent Auto 2.8 % (0-4); Hematocrit 42.4 % (37.0-47.0); Hemoglobin 13.4 g/dl (12.0-16.0); Imm Gran Abs Auto 0.02 X10*3/uL (0.00-0.03); Imm Gran Pct Auto 0.2 % (0.0-0.4); Lymphocytes Absolute Auto 2.6 X10*3/uL (1.2-4.9); Lymphocytes Percent Auto 26.5 % (20-40); Mean Corpuscular HGB Conc 31.6 g/dl (31.0-35.0); Mean Corpuscular Hemoglobin 28.9 pg (27.0-33.0); Mean Corpuscular Volume 91.6 fL (80.0-98.0); Mean Platelet Volume 10.8 fL (9.4-12.3); Monocytes Absolute Auto 0.5 X10*3/uL (0.1-1.2); Monocytes Percent Auto 5.5 % (2-11); Neutrophils Absolute Auto 6.4 x10*3/uL (2.0-8.3); Neutrophils Percent Auto 64.6 % (45-73); Platelet Count 273 X10*3/uL (160-400); Red Blood Count 4.63 X10*6/uL (4.20-5.50); Red Cell Distribution Width 14.3 % (11.0-16.0); White Blood Count 9.9 X10*3/uL (4.8-10.8)
[2023-01-05 22:11] LABS: HCG Quantitative < 2 mIU/mL
[2023-01-05] MEDS: Nitrofurantoin Monohyd/M-Cryst 100 MG CAPSULE PO (22:25)
[2023-01-05] MEDS: Acetaminophen 325 MG TABLET 650 MG PO (22:25)
== END 2023-01-05 22:29 | disposition home or self-care (01) ==
PROVIDERS: Physician Assistant; Emergency Provider Emergency Medicine; PCP Family Medicine
DX: N95.0 Postmenopausal bleeding (principal); N39.0 Urinary tract infection, site not specified; Z20.822 Contact with and (suspected) exposure to COVID-19; E11.9 Type 2 diabetes mellitus without complications; I10 Essential (primary) hypertension; Z79.899 Other long term (current) drug therapy
CPT/HCPCS: 80048; 80076; 81001; 83690; 83735; 84702; 85025; 87086; 87502; 87635; 99283

== ENCOUNTER 2023-01-14 13:39 | Outpatient (REF) | payer MEDICAID, SELFPAY | END 2023-01-14 13:40 | disposition home or self-care (01) | LOC: HO.US 13:39 | PROVIDERS: Visit Provider Obstetrics & Gynecology | DX: Z13.89 Encounter for screening for other disorder (principal) ==

== ENCOUNTER 2023-02-11 14:36 | Outpatient (REF) | payer MEDICAID, SELFPAY ==
--- NOTE | ~2023-02-11 | US_ITS ---
EXAM: Pelvic Ultrasound CLINICAL INDICATION: Benign neoplasm of connective and other soft tissue COMPARISON: Pelvic ultrasound 07/22/2022 TECHNIQUE: The pelvis was evaluated using transabdominal and transvaginal imaging. Today's examination is limited secondary to patient comfort. FINDINGS: Retroverted uterus measures 6.6 x 4.4 x 4.3 cm in longitudinal by AP by transverse dimension. Again demonstrated is a 2.3 x 2.2 x 2.3 cm hyperechoic intramural uterine lesion (previously 2.4 cm). The endometrium was not clearly visualized. Nabothian cysts again demonstrated within the cervix. The left ovary measures approximately 2.6 x 1.4 x 2.0 cm and is normal. Right ovary was not clearly visualized. There is a small amount of free fluid within the pelvis. US/US pelvic and transvaginal IMPRESSION: 1. Again demonstrated is a 2.3 cm hyperechoic intramural uterine lesion. This is a nonspecific finding but most suggestive of a liopoleiomyoma. This lesion is relatively stable in size. 2. Right ovary not clearly visualized. 3. Small amount of free pelvic fluid.
== END 2023-02-11 14:37 | disposition home or self-care (01) ==
LOC: HO.US 14:36
PROVIDERS: PCP Family Medicine; Visit Provider Obstetrics & Gynecology
DX: D21.9 Benign neoplasm of connective and other soft tissue, unspecified (principal); N95.0 Postmenopausal bleeding
CPT/HCPCS: 76830; 76856

== ENCOUNTER 2023-02-25 10:02 | Outpatient (REF) | payer MEDICAID, SELFPAY ==
--- NOTE | ~2023-02-25 | MM_ITS ---
EXAMINATION: MM DIAGNOSTIC DIGITAL BREAST TOMOSYNTHESIS, BILATERAL US DIAGNOSTIC ULTRASOUND BREAST, LEFT CLINICAL INFORMATION: Left breast pain mid 9:00. Subtle palpable fullness subareolar 6:00 left breast on clinical exam. Patient notes no palpable abnormality. No discharge. The lifetime risk of breast cancer based on the Tyrer-Cuzick Model is 3%. COMPARISON: Multiple prior mammography exams, most recent 01/14/2022. TECHNIQUE: Digital breast tomosynthesis is performed in both the craniocaudal and mediolateral oblique views along with computer-aided detection (CAD). Synthesized 2D images are generated from the tomosynthesis. Additional spot right MLO and standard right ML views are obtained. Ultrasound left breast is targeted to the 6:00 through 11:00 position using grayscale imaging and color Doppler without and with harmonics. FINDINGS: There are scattered areas of fibroglandular density (ACR BI-RADS breast composition Category b). Breast tissue composition is similar to prior studies. There is some minor scattered asymmetries similar to prior exams. No developing density or architectural abnormality. There is a biopsy clip marker again seen mid lower inner right breast. There are no significant masses, abnormal calcifications, or other abnormalities. The axilla are unremarkable. No skin thickening or coarsening of the Jakub's ligaments. Ultrasound left breast demonstrates no cystic or solid mass or architectural abnormality. No focal duct ectasia. No skin thickening or edema tracking in soft tissue planes. No hyperemia on color Doppler. Results are discussed with the patient at time of visit, using an real estate sales agent. MM/MM tomosynthesis diagnostic BI IMPRESSION: -No mammographic evidence of malignancy or inflammatory changes. -Unremarkable left breast ultrasound. ASSESSMENT: BI-RADS 2: Benign RECOMMENDATION: 1. Patient's mastodynia should be managed based on the clinical impression. If there remains a clinically palpable concern, further evaluation may be considered with surgical consult. 2. Otherwise, routine annual screening mammography. This patient's information was entered into a reminder system with a target due date for their next mammogram.
== END 2023-02-25 10:03 | disposition home or self-care (01) ==
LOC: HO.MAMMO 10:02
PROVIDERS: PCP Family Medicine; Visit Provider Registered Nurse
DX: N64.4 Mastodynia (principal); N63.25 Unspecified lump in the left breast, overlapping quadrants
CPT/HCPCS: 76642; 77062; 77066

== ENCOUNTER 2023-02-25 12:02 | Emergency (ER) | payer MEDICAID, SELFPAY ==
--- NOTE | ~2023-02-25 | CT_ITS ---
EXAMINATION: CT HEAD WITHOUT CONTRAST CT FACE WITHOUT CONTRAST CLINICAL INFORMATION: Nasal trauma. Lip trauma. Headache. COMPARISON: No relevant prior imaging. TECHNIQUE: [employer] images were obtained. CT imaging of the head and face was performed without contrast. Data was reformatted into multiplanar images at the acquisition workstation. This CT examination was performed using dose optimization techniques as appropriate, including one or more of the following: Automated exposure control, iterative reconstruction, and adjustment of technique factors (mA and/or kVp) according to patient size (this includes techniques or standardized protocols for targeted exams where dose is matched to indication/reason for exam). Fleischner Society criteria for the followup of incidental pulmonary nodules was implemented if appropriate. DLP: 1004 mGy-cm. FINDINGS: Head: There is no acute intracranial hemorrhage or abnormal extra-axial collection. No intracranial mass effect or midline shift. Lateral and third ventricles are normal. No hydrocephalus. Cain-white matter differentiation is preserved and there is no evidence of acute territorial infarct. The calvarium and skull base are intact. Mastoid air cells and middle ear cavities are well aerated. Face: Nasal bones, zygomatic arches, and pterygoid processes are intact. The mandible is intact and temporomandibular joints are symmetric. Globes and extraocular muscles are unremarkable. No abnormal retrobulbar mass or inflammation. Lamina papyracea and orbital floors are intact. Orbital apices are unremarkable. There are a few small retention cysts within the maxillary sinuses. Mild mucosal thickening within the right anterior ethmoid air cells. Otherwise no active paranasal sinus disease. All of the major paranasal sinus and pathways are patent. The nasal septum deviates to the right anteriorly. CT/CT facial bones wo IV con IMPRESSION: Unremarkable examination. No evidence of acute territorial infarct or hemorrhage. No acute facial fracture.
[2023-02-25 12:13] VITALS: BP 130/75; PULSE 57; RESP 18; TEMP 36.8; O2SAT 98; BMI 34.7
--- NOTE | 2023-02-25 12:16 | ED_ITS ---
HPI - Fall General Chief Complaint: Fall <ENDY Lane Last Filed: 02/25/23 12:18> Stated Complaint: nose injury <ENDY Lane Last Filed: 02/25/23 12:18> Time Seen by Provider: 02/25/23 13:46 <ENDY Lane Last Filed: 02/25/23 12:18> Source: patient <ENDY Bishop Last Filed: 02/25/23 16:17> Mode of arrival: ambulatory <ENDY Bishop Last Filed: 02/25/23 16:17> Limitations: no limitations <ENDY Bishop Last Filed: 02/25/23 16:17> History of Present Illness HPI Narrative: Patient is a 62 year old assigned female at with a history of diverticulitis presenting to the emergency department today with nose and lip pain after a fall. Patient states that she had a mechanical fall last night hitting her upper lip and nose. Patient denies any loss of consciousness. Patient denies any dizziness, lightheadedness, abdominal pain, nausea, vomiting, fever, chills, blurry vision, double vision, loss of vision, chest pain, difficulty breathing, shortness of breath, back pain, night sweats, pain with u rination, increased urinary frequency, increased urinary urgency, blood in her urine or stool, syncope or a near syncopal episode, recent trauma or falls, bowel incontinence, bladder incontinence, bowel retention, bladder retention, or any other complaints at this time. <ENDY Bishop Last Filed: 02/25/23 16:17> MD complaint: fall <ENDY Bishop Last Filed: 02/25/23 16:17> Onset (ago): day(s) (1) <ENDY Bishop Last Filed: 02/25/23 16:17> Place fall occurred: home <ENDY Bishop Last Filed: 02/25/23 16:17> Loss of consciousness: none <ENDY Bishop Last Filed: 02/25/23 16:17> Context: tripped/slipped <ENDY Bishop Last Filed: 02/25/23 16:17> Related Data Home Medications: Home Medications Medication Instructions Recorded Confirmed fluoxetine 20 mg capsule (Prozac) 2 cap PO QAM 06/10/21 06/10/21 gabapentin 100 mg capsule 1 cap PO BEDTIME 06/10/21 06/10/21 prazosin 2 mg capsule 2 cap PO BEDTIME 06/10/21 06/10/21 bupropion HCl 150 mg 24 hr tablet, 150 mg PO QAM 05/23/22 extended release levothyroxine 75 mcg tablet 75 mcg PO QAM 05/23/22 sertraline 100 mg tablet 150 mg PO QAM 05/23/22 Previous Rx's Medication Instructions Recorded hydrocortisone 2.5 % topical cream 1 appl UT BID hemorrhoids #30 grams 05/23/22 with perineal applicator (Proctosol HC) metronidazole 500 mg tablet 500 mg PO BID 7 days #14 tabs 06/04/22 cephalexin 500 mg capsule 500 mg PO QID 7 days #28 caps 06/07/22 acetaminophen 500 mg tablet 1,000 mg PO Q6H PRN Pain or fever 08/15/22 (Tylenol Extra Strength) #20 tabs amoxicillin 500 mg capsule 1,000 mg PO TID 5 days #30 caps 08/15/22 sennosides 8.6 mg capsule (senna) 17.2 mg PO BEDTIME constipation 30 10/30/22 days #60 caps dicyclomine 20 mg tablet 20 mg PO TID #90 tabs 12/24/22 linaclotide 72 mcg capsule 72 mcg PO .q2pm #30 caps 12/24/22 (Linzess) metoclopramide HCl 5 mg tablet 5 mg PO .TIDAC #90 tabs 12/24/22 (Reglan) pantoprazole 40 mg tablet,delayed 40 mg PO BID #60 tabs 12/24/22 release simethicone 180 mg capsule 180 mg PO QID 30 days #120 caps 12/24/22 nitrofurantoin 100 mg PO Q12H 7 days #14 caps 01/05/23 monohydrate/macrocrystals 100 mg capsule (Macrobid) <ENDY Lane - Last Filed: 02/25/23 12:18> Allergies/Adverse Reactions: Allergies Allergy/AdvReac Type Severity Reaction Status Date / Time No Known Allergies Allergy Verified 06/04/22 10:23 [No Known Allergies*] <Pau Cordova [employer] - Last Filed: 02/25/23 12:18> Review of Systems Constitutional: Constitutional: Reports no additional constitutional complaints, Denies chills, Denies fever(s) and Denies night sweats <ENDY Bishop - Last Filed: 02/25/23 16:17> Eyes: Eyes: Reports no additional eye complaints, Denies blurry vision, Denies change in vision, Denies diplopia, Denies eye discharge, Denies loss of vision and Denies eye pain <ENDY Bishop - Last Filed: 02/25/23 16:17> ENT: Denies dizziness, Reports lip swelling and Reports nose pain <ENDY Bishop Last Filed: 02/25/23 16:17> Cardiovascular: Cardiovascular: Reports no additional cardiovascular complaints, Denies chest pain, Denies lightheadedness, Denies Loss of Consciousness and Denies dyspnea <ENDY Bishop - Last Filed: 02/25/23 16:17> Respiratory: Respiratory: Reports no additional respiratory complaints and Denies dyspnea <ENDY Bishop - Last Filed: 02/25/23 16:17> Gastrointestinal: Gastrointestinal: Reports no additional gastrointestinal complaints, Denies abdominal pain, Denies melena, Denies hematochezia, Denies change in bowel habits and Denies change in stool character <ENDY Bishop - Last Filed: 02/25/23 16:17> Genitourinary: Genitourinary: Denies hematuria, Denies urinary frequency, Denies dysuria, Denies urinary incontinence, Denies urinary hesitancy and Denies urinary urgency <ENDY Bishop - Last Filed: 02/25/23 16:17> Musculoskeletal: Musculoskeletal: Reports no additional musculoskeletal complaints, Denies numbness and Denies tingling <ENDY Bishop - Last Filed: 02/25/23 16:17> Neurologic: Denies dizziness, Denies loss of vision, Denies numbness and Denies tingling <ENDY Bishop Last Filed: 02/25/23 16:17> Psychiatric: Psychiatric: Reports no additional psychiatric complaints <ENDY Bishop Last Filed: 02/25/23 16:17> Endocrine: Endocrine: Reports no additional endocrine complaints <ENDY Bishop - Last Filed: 02/25/23 16:17> Hematologic/Lymphatic: Hematologic/Lymphatic: Reports no additional hematologic/lymphatic complaints <ENDY Bishop - Last Filed: 02/25/23 16:17> Allergic/Immunologic: Allergic/Immunologic: Reports no additional allergic/immunologic complaints and Reports lip swelling <ENDY Bishop - Last Filed: 02/25/23 16:17> PMFSH Past Medical History Attestation statement: The following information was validated with the patient. <ENDY Bishop - Last Filed: 02/25/23 16:17> Source: old records reviewed and nursing notes reviewed <ENDY Bishop - Last Filed: 02/25/23 16:17> Medical History: Medical History Bacterial vaginosis Diabetes Hypertension LLQ abdominal pain <ENDY Lane - Last Filed: 02/25/23 12:18> Surgical History: Surgical History History of esophagogastroduodenoscopy (EGD) Hx of colonoscopy <ENDY Lane - Last Filed: 02/25/23 12:18> Family History Family History: Family History Father Family history of prostate problems Mother Tumor <ENDY Lane - Last Filed: 02/25/23 12:18> Social History Social History: Social History Household Members: None Alcohol intake: never Patient Tobacco Use Status: Never used Tobacco Cigarettes Per Day: 2 Advance Directives: No Advance Directives Information Provided: Yes Current occupational status: disabled <ENDY Lane - Last Filed: 02/25/23 12:18> Physical Exam Vital Signs: Vital Signs: Last Vital Signs Temp 97.2 F 02/25/23 15:12 Pulse 58 02/25/23 15:12 Resp 18 02/25/23 15:12 BP 162/89 H 02/25/23 15:12 Pulse Ox 98 02/25/23 15:12 O2 Del Method Room Air 02/25/23 15:12 BMI result Body Mass Index 34.7 <ENDY Lane - Last Filed: 02/25/23 12:18> Vital Signs: Last Vital Signs Temp 97.2 F 02/25/23 15:12 Pulse 58 02/25/23 15:12 Resp 18 02/25/23 15:12 BP 162/89 H 02/25/23 15:12 Pulse Ox 98 02/25/23 15:12 O2 Del Method Room Air 02/25/23 15:12 BMI result Body Mass Index 34.7 <ENDY Bishop - Last Filed: 02/25/23 16:17> Const: General: cooperative, no acute distress, alert and awake <ENDY Bishop - Last Filed: 02/25/23 16:17> Nutritional Appearance: well nourished <ENDY Bishop - Last Filed: 02/25/23 16:17> Orientation/consciousness: patient oriented x3 <ENDY Bishop - Last Filed: 02/25/23 16:17> Limitations: no limitations <ENDY Bishop - Last Filed: 02/25/23 16:17> HEENT: Head: Yes normal to inspection and Yes atraumatic <ENDY Bishop - Last Filed: 02/25/23 16:17> Ears: hearing grossly normal bilaterally and external ears normal <ENDY Bishop - Last Filed: 02/25/23 16:17> General nose exam: Normal external nose present, no nasal discharge noted and no epistaxis <ENDY Bishop - Last Filed: 02/25/23 16:17> Face and sinus: Yes normal facial exam, No abrasion and No laceration <ENDY Bishop - Last Filed: 02/25/23 16:17> Mouth: Normal oral and palatal mucosa present, no drooling, no muffled voice and other (upper lip swelling) <ENDY Bishop - Last Filed: 02/25/23 16:17> Eyes: General: appearance normal, both eyes and all related structures <ENDY Bishop - Last Filed: 02/25/23 16:17> Periorbital: periorbital findings normal <Jennifer Lee PA - Last Filed: 02/25/23 16:17> Eyelids: Yes eyelids normal <Jennifer Lee PA - Last Filed: 02/25/23 16:17> Conjunctivae: conjunctivae normal <Jennifer Lee PA - Last Filed: 02/25/23 16:17> Pupils: Equal, round and reactive pupils present <Jennifer Lee PA - Last Filed: 02/25/23 16:17> EOM: EOMs intact bilaterally <Jennifer Lee PA - Last Filed: 02/25/23 16:17> Neck: Neck: Yes normal visual inspection, Yes full ROM and Yes no lymphadenopathy <Jennifer Lee PA - Last Filed: 02/25/23 16:17> Chest: Chest palpation & inspection: normal inspection of the chest <Jennifer Lee PA - Last Filed: 02/25/23 16:17> Resp: Effort & Inspection: normal respiratory effort and able to speak in complete sentences <Jennifer Lee PA - Last Filed: 02/25/23 16:17> Auscultation: clear to auscultation bilaterally <Jennifer Lee PA - Last Filed: 02/25/23 16:17> GI: Inspection: Yes normal to inspection <Jennifer Lee PA - Last Filed: 02/25/23 16:17> Neuro: General: patient oriented x3 and moves all extremities <Jennifer Lee PA - Last Filed: 02/25/23 16:17> Cranial nerves: Yes Equal, round and reactive pupils present <Jennifer Lee PA - Last Filed: 02/25/23 16:17> Cognition (Neuro): normal cognition <Jennifer Lee PA - Last Filed: 0 02/25/23 16:17> Motor exam (neuro): 5/5 motor strength present throughout <Jennifer Lee PA - Last Filed: 02/25/23 16:17> Sensory Exam: Normal double simultaneous stimulation for sensation <Jennifer Lee PA - Last Filed: 02/25/23 16:17> Coordination: [id number] test normal <Jennifer Lee PA - Last Filed: 02/25/23 16:17> Extrem: General: Yes normal to inspection, Yes full ROM and Yes capillary refill normal <ENDY Bishop - Last Filed: 02/25/23 16:17> Psych: Appearance: grossly normal <ENDY Bishop Last Filed: 02/25/23 16:17> Mental Status: mental status grossly normal <ENDY Bishop Last Filed: 02/25/23 16:17> Affect: normal affect <ENDY Bishop - Last Filed: 02/25/23 16:17> Attitude: cooperative <ENDY Bishop - Last Filed: 02/25/23 16:17> Thought process: Normal thought process present <ENDY Bishop Last Filed: 02/25/23 16:17> Thought content: Normal thought content present <ENDY Bishop Last Filed: 02/25/23 16:17> Insight: Good insight present (Psych) <ENDY Bishop Last Filed: 02/25/23 16:17> Course Course Course Narrative: RME - 62 y/o [place] speaking female presenting to the ER for evaluation of headache, nose and lip pain after she lost her balance, fell and hit her face on the cement yesterday. No LOC. Not on anticoagulation. No cervical tenderness on exam. Nose is swollen without deformity or septal hematoma. Plan: CT head and facial bones. <ENDY Lane - Last Filed: 02/25/23 12:18> Medical Decision Making Medical Decision Making MDM Narrative: Patient is a 62 year old assigned female at with a history of diverticulitis and GERD presenting to the emergency department today with upper lip swelling and nose pain after a fall. Patient's physical exam showed minimal upper lip swelling and a chipped #9 tooth. Patient confirmed the tooth has been chipped for a long time, predating the fall. Patient's head and facial CTs showed no acute process. I explained my physical exam findings as well as all test results to the patient. I answered all questions asked by the patient. I stressed the importance of the patient taking her medication as prescribed. I stressed the importance of the patient following up with her primary care provider. I stressed the importance of the patient returning to the emergency department immediately if her symptoms were to worsen or if she were to develop any dizziness, shortness of breath, difficulty breathing, chest pain, blurry vision, loss of vision, nausea, vomiting, abdominal pain, fever, chills, back pain, or any other complaints. Patient verbalized agreement and understanding with this treatment plan and discharge. <ENDY Bishop Last Filed: 02/25/23 16:17> Differential Diagnosis Differential Diagnoses: The differential diagnosis associated with the presentation includes <ENDY Bishop Last Filed: 02/25/23 16:17> fall, upper lip swelling <ENDY Bishop Last Filed: 02/25/23 16:17> Independent Interpretation I performed an independent interpretation of an: CT Scan <ENDY Bishop Last Filed: 02/25/23 16:17> Interpretation: My interpretation is in agreement with the radiologist's impression of these imaging studies. EXAMINATION: CT HEAD WITHOUT CONTRAST CT FACE WITHOUT CONTRAST CLINICAL INFORMATION: Nasal trauma. Lip trauma. Headache. COMPARISON: No relevant prior imaging. TECHNIQUE: [employer] Specialist images were obtained. CT imaging of the head and face was performed without contrast. Data was reformatted into multiplanar images at the acquisition workstation. This CT examination was performed using dose optimization techniques as appropriate, including one or more of the following: Automated exposure control, iterative reconstruction, and adjustment of technique factors (mA and/or kVp) according to patient size (this includes techniques or standardized protocols for targeted exams where dose is matched to indication/reason for exam). Fleischner Society criteria for the followup of incidental pulmonary nodules was implemented if appropriate. DLP: 1004 mGy-cm. FINDINGS: Head: There is no acute intracranial hemorrhage or abnormal extra-axial collection. No intracranial mass effect or midline shift. Lateral and third ventricles are normal. No hydrocephalus. Cain-white matter differentiation is preserved and there is no evidence of acute territorial infarct. The calvarium and skull base are intact. Mastoid air cells and middle ear cavities are well aerated. Face: Nasal bones, zygomatic arches, and pterygoid processes are intact. The mandible is intact and temporomandibular joints are symmetric. Globes and extraocular muscles are unremarkable. No abnormal retrobulbar mass or inflammation. Lamina papyracea and orbital floors are intact. Orbital apices are unremarkable. There are a few small retention cysts within the maxillary sinuses. Mild mucosal thickening within the right anterior ethmoid air cells. Otherwise no active paranasal sinus disease. All of the major paranasal sinus and pathways are patent. The nasal septum deviates to the right anteriorly. CT/CT facial bones wo IV con IMPRESSION: Unremarkable examination. No evidence of acute territorial infarct or hemorrhage. No acute facial fracture. Dictated By: Ronak Drew MD Signed By: Electronically signed by Ronak Drew MD 02/25/23 1435 <ENDY Bishop - Last Filed: 02/25/23 16:17> Discharge Plan Discharge Clinical Impression: Fall <ENDY Lane - Last Filed: 02/25/23 12:18> Patient Disposition: Home, Self-Care <ENDY Lane - Last Filed: 02/25/23 12:18> Instructions: Fall Prevention (ED) <ENDY Lane - Last Filed: 02/25/23 12:18> Additional Instructions: Follow up with your primary care provider. Return to the emergency department immediately if your symptoms worsen or if you develop any dizziness, shortness of breath, difficulty breathing, chest pain, blurry vision, loss of vision, nausea, vomiting, abdominal pain, fever, chills, back pain, or any other complaints. Ghazala un seguimiento con cordova proveedor de atenci?n primaria. Regrese al departamento de emergencias de inmediato si juan s?ntomas empeoran o si presenta mareos, falta de aire, dificultad para respirar, dolor de pecho, visi?n borrosa, p?rdida de la visi?n, n?useas, v?mitos, dolor abdominal, fiebre, escalofr?os, dolor de espalda o cualquier otras quejas. <ENDY Lane - Last Filed: 02/25/23 12:18> Prescriptions: No Action senna 8.6 mg capsule 17.2 mg PO BEDTIME 30 Days Qty: 60 6RF gabapentin 100 mg capsule 1 cap PO BEDTIME fluoxetine [Prozac] 20 mg capsule 2 cap PO QAM prazosin 2 mg capsule 2 cap PO BEDTIME cephalexin 500 mg capsule 500 mg PO QID 7 Days Qty: 28 0RF amoxicillin 500 mg capsule 1,000 mg PO TID 5 Days Qty: 30 0RF acetaminophen [Tylenol Extra Strength] 500 mg tablet 1,000 mg PO Q6H PRN (Reason: Pain or fever) Qty: 20 0RF nitrofurantoin monohyd/m-cryst [Macrobid] 100 mg capsule 100 mg PO Q12H 7 Days Qty: 14 0RF Rx Instructions: must administer with a meal/food metronidazole 500 mg tablet 500 mg PO BID 7 Days Qty: 14 0RF bupropion HCl 150 mg tablet extended release 24 hr 150 mg PO QAM levothyroxine 75 mcg tablet 75 mcg PO QAM sertraline 100 mg tablet 150 mg PO QAM hydrocortisone [Proctosol HC] 2.5 % cream with perineal applicator 1 appl UT BID Qty: 30 6RF simethicone 180 mg capsule 180 mg PO QID 30 Days Qty: 120 6RF Rx Instructions: after meals Linzess 72 mcg capsule 72 mcg PO .q2pm Qty: 30 6RF pantoprazole 40 mg tablet,delayed release (DR/EC) 40 mg PO BID Qty: 60 6RF metoclopramide HCl [Reglan] 5 mg tablet 5 mg PO .TIDAC Qty: 90 6RF Rx Instructions: Provider aware of possible interactions with sertraline and antidepressant, monitoring dicyclomine 20 mg tablet 20 mg PO TID Qty: 90 6RF <ENDY Lane - Last Filed: 02/25/23 12:18> Referrals: [facility] [Primary Care Provider] - <ENDY Lane - Last Filed: 02/25/23 12:18> Interventions: ED Discharge Assessment Last Done: 02/25/23 15:19 <ENDY Lane - Last Filed: 02/25/23 12:18> Discharge Date/Time: 02/25/23 15:21 <ENDY Lane - Last Filed: 02/25/23 12:18> Print Language: [place] <ENDY Lane - Last Filed: 02/25/23 12:18>
[2023-02-25 15:12] VITALS: BP 162/89; PULSE 58; RESP 18; TEMP 36.2; O2SAT 98
== END 2023-02-25 15:21 | disposition home or self-care (01) ==
PROVIDERS: Emergency Provider Emergency Medicine Emergency Medical Services
DX: Z04.3 Encounter for examination and observation following other accident (principal); R22.0 Localized swelling, mass and lump, head; J34.89 Other specified disorders of nose and nasal sinuses; Z91.81 History of falling
CPT/HCPCS: 70450; 70486; 99283; 99284

== ENCOUNTER → 2023-03-24 09:56 | Outpatient (BNVA) | payer MEDICAID, SELFPAY | PROVIDERS: Visit Provider Nurse Practitioner | DX: K59.04 Chronic idiopathic constipation (principal); K21.9 Gastro-esophageal reflux disease without esophagitis; K30 Functional dyspepsia; R14.0 Abdominal distension (gaseous) | CPT/HCPCS: 99212 ==

== ENCOUNTER → 2023-03-25 12:30 | Outpatient (BNVA) | payer MEDICAID, SELFPAY | PROVIDERS: PCP Family Medicine; Visit Provider Obstetrics & Gynecology | DX: D21.9 Benign neoplasm of connective and other soft tissue, unspecified (principal) | CPT/HCPCS: 99212 ==

== ENCOUNTER 2023-04-16 13:45 | Emergency (ER) | payer MEDICAID, SELFPAY ==
--- NOTE | ~2023-04-16 | CT_ITS ---
EXAMINATION: CT ABDOMEN AND PELVIS WITHOUT CONTRAST CLINICAL INFORMATION: Epigastric pain COMPARISON: CT abdomen pelvis 08/06/2022 TECHNIQUE: Multidetector volumetric imaging was performed from the superior aspect of the liver through the pubic symphysis. Sagittal and coronal reformatted images were obtained on the technologist's workstation. This CT examination was performed using dose optimization techniques as appropriate, variously including the following: *Automated exposure control *Adjustment of mA and/or kV according to patient size (this includes techniques or standardized protocols for targeted exams where dose is matched to indication/reason for exam; i.e. extremities or head) *Use of iterative reconstruction technique DLP: 632 mGy-cm FINDINGS: LUNG BASES: The visualized lung bases are unremarkable. LIVER, GALLBLADDER, AND BILIARY TREE: The liver is normal in size but demonstrates decreased attenuation consistent with hepatic steatosis. A punctate calcified granuloma is noted in the right lobe of the liver. No worrisome solid focal hepatic lesion or biliary ductal dilatation is present. The gallbladder is unremarkable with no convincing evidence of radiopaque gallstones, gallbladder wall thickening, or obvious pericholecystic inflammatory changes. PANCREAS: Unremarkable. SPLEEN: Unremarkable. ADRENAL GLANDS: Unremarkable. KIDNEYS AND URETERS: The kidneys are normal in size, shape, and attenuation. No hydronephrosis, hydroureter, or calculi seen. No perinephric stranding. BLADDER: Unremarkable. GASTROINTESTINAL TRACT: The small and large bowel are unremarkable aside from the presence of colonic diverticula throughout the colon most marked in the sigmoid. No evidence of diverticulitis. The appendix is unremarkable. ABDOMINAL WALL: No significant hernia is appreciated. LYMPH NODES: No retroperitoneal lymphadenopathy. VASCULAR: Unremarkable. PELVIC VISCERA: Again seen is a 2.2 cm uterine lipoleiomyoma. An adnexal mass or free fluid is not seen. OSSEOUS STRUCTURES: Mild degenerative changes are seen in the spine most prominent at L5-S1. CT/CT abdomen pelvis wo IV con IMPRESSION: 1. A cause for the patient's epigastric pain has not been found. 2. Incidental note made of hepatic steatosis, colonic diverticulosis without diverticulitis, uterine lipoleiomyoma and mild degenerative changes L5-S1. Fleischner guidelines were followed.
[2023-04-16 13:50] VITALS: BP 113/58; PULSE 53; RESP 20; TEMP 36.4; O2SAT 95; BMI 34.6
--- NOTE | 2023-04-16 13:52 | ED_ITS ---
HPI - Abdominal Pain General Chief Complaint: Abdominal Pain Stated Complaint: Abd pain/Nausea Time Seen by Provider: 04/16/23 18:15 Source: patient Mode of arrival: ambulatory Limitations: no limitations History of Present Illness HPI narrative: This is a 62-year-old female history of hypertension, diet controlled diabetes, GERD, gastritis, diverticulitis presenting to the emergency department with complaints of abdominal pain, nausea and vomiting since 14:00. Patient reports the abdominal pain is epigastric in nature, radiates around bilaterally and into her flank region, she reports she is feeling very nauseous therefore she stuck her finger down her throat and made herself vomit. She reports pain is severe, crampy and sharp and has been constant ever since 02:00 o'clock. Patient has no history of abdominal surgeries. No recent sick contacts. Denies chest pain, shortness of breath, headache, vision changes, dizziness, weakness, hematemesis, hematochezia, melena, fevers and chills. Related Data Home Medications Medication Instructions Recorded Confirmed fluoxetine 20 mg capsule (Prozac) 2 cap PO QAM 06/10/21 06/10/21 gabapentin 100 mg capsule 1 cap PO BEDTIME 06/10/21 06/10/21 prazosin 2 mg capsule 2 cap PO BEDTIME 06/10/21 06/10/21 bupropion HCl 150 mg 24 hr tablet, 150 mg PO QAM 05/23/22 extended release levothyroxine 75 mcg tablet 75 mcg PO QAM 05/23/22 sertraline 100 mg tablet 150 mg PO QAM 05/23/22 albuterol sulfate 90 mcg/actuation 2 puff inhalation Q4-6H PRN 03/24/23 aerosol inhaler (Ventolin HFA) atenolol 25 mg tablet 25 mg PO QAM 03/24/23 fluticasone propionate 220 1 puff inhalation BID 03/24/23 mcg/actuation HFA aerosol inhaler (Flovent HFA) fluticasone propionate 50 2 spray intranasal DAILY 03/24/23 mcg/actuation nasal spray,suspension lisinopril 5 mg tablet 5 mg PO QAM 03/24/23 loratadine 10 mg tablet 10 mg PO QAM PRN allergies 03/24/23 Previous Rx's Medication Instructions Recorded hydrocortisone 2.5 % topical cream 1 appl KS BID hemorrhoids #30 grams 05/23/22 with perineal applicator (Proctosol HC) acetaminophen 500 mg tablet 1,000 mg PO Q6H PRN Pain or fever 08/15/22 (Tylenol Extra Strength) #20 tabs sennosides 8.6 mg capsule (senna) 17.2 mg PO BEDTIME constipation 30 10/30/22 days #60 caps dicyclomine 20 mg tablet 20 mg PO TID #90 tabs 12/24/22 linaclotide 72 mcg capsule 72 mcg PO .q2pm #30 caps 12/24/22 (Linzess) metoclopramide HCl 5 mg tablet 5 mg PO .TIDAC #90 tabs 12/24/22 (Reglan) pantoprazole 40 mg tablet,delayed 40 mg PO BID #60 tabs 12/24/22 release simethicone 180 mg capsule 180 mg PO QID 30 days #120 caps 12/24/22 aluminum-mag hydroxide-simethicone 5 ml PO 5XD PRN dyspepsia #355 mL 04/16/23 200 mg-200 mg-20 mg/5 mL oral susp (Maalox Advanced) ketorolac 10 mg tablet 10 mg PO TID PRN pain 5 days #15 04/16/23 tabs Allergies Allergy/AdvReac Type Severity Reaction Status Date / Time No Known Allergies Allergy Verified 03/25/23 12:41 [No Known Allergies*] Review of Systems Review of Systems Constitutional : No Weight loss, No Fever, No Chills, + Fatigue, + Malaise ENT/Mouth : No sore throat, No Rhinorrhea Eyes: No Eye Pain, No Swelling, No Redness Cardiovascular : No Chest Pain, No SOB, No Dyspnea on Exertion, No Orthopnea, No Edema, No Palpitations Respiratory : No Cough, No Sputum, No Wheezing Gastrointestinal : + Nausea, + Vomiting, No Diarrhea, No Constipation, + abdominal Pain, No Hematochezia, No Melena Genitourinary : No Dysuria, No Urinary Frequency, No Hematuria, Musculoskeletal : No joint pain, No Myalgias, No Joint Swelling Skin : No Skin Lesions, No rash Neuro : No Weakness, No Numbness, No Dizziness, No Headache Psych : No Anxiety/Panic, No Depression All other systems reviewed and are negative Yes all other systems are reviewed and are negative PMFSH Past Medical History Attestation statement: The following information was validated with the patient. Source: old records reviewed and nursing notes reviewed Medical History Bacterial vaginosis Diabetes Hypertension LLQ abdominal pain Surgical History History of esophagogastroduodenoscopy (EGD) Hx of colonoscopy Family History Family History Father Family history of prostate problems Mother Tumor Social History Social History Household Members: None Alcohol intake: current Alcohol intake frequency: holidays/special occasions only Patient Tobacco Use Status: Never used Tobacco Cigarettes Per Day: 2 Smoked in Last 30 Days: Yes Advance Directives: No Advance Directives Information Provided: No Current occupational status: disabled Physical Exam ED Vital Signs: Vital Signs - 24 hr 04/16/23 13:50 04/16/23 18:10 04/16/23 20:49 Temperature 97.5 F 98.1 F 98.1 F Pulse Rate 53 62 66 Respiratory Rate 20 17 18 Blood Pressure 113/58 L 185/92 H 145/73 H Pulse Oximetry 95 98 95 Oxygen Delivery Method Room Air Room Air Room Air BMI result Body Mass Index 34.6 vss Appearance: Alert.? Oriented X3.? No acute distress.? Patient well appearing. Head: Normocephalic, atraumatic, no step-offs or deformities Eyes: Pupils equal, round and reactive to light.? CVS: Normal heart rate and rhythm.? Pulses normal.? Respiratory: No respiratory distress.? Breath sounds normal.? Abdomen: Soft and slight tenderness to the epigastric region. Negative Garnica's, Rovsing, McBurney's. Normoactive bowel sounds throughout..? Skin: Skin warm and dry.? Normal skin color.? Normal skin turgor.? Extremities: No lower extremity edema.? No calf ttp. 5/5 strength to bilateral upper and lower extremities Back: No midline tenderness, no C-spine tenderness, full range of motion, no CVA tenderness bilaterally Neuro: Oriented X 3.? No motor deficit.? No sensory deficit. CN 2-12 intact Course Course Course Narrative: This is a rapid medical exam. Deferred additional HPI, ROS, PE to primary provider. 62 yo female with history of hypertension, diet-controlled diabetes, G ERD, gastritis, history of diverticulitis here with 30 minutes of abdominal pain w/ nausea radiation to the back NO previous abdominal surgery. Patient quite uncomfortable in triage, +diaphoretic. VSS Will obtain labs, EKG, UA Reevaluation(s) Reevaluation #1: CBC within normal limits. Chemistry unremarkable. Troponin negative. EKG nonischemic. UA negative. CT of the abdomen and pelvis unable to identify a cause for patient's epigastric pain. Normal appendix noted. Incidental note of XT a ptosis, colonic diverticulosis without diverticulitis. Patient feeling better. Educated patient on diagnosis and treatment plan, answered all question, patient verbalizes understanding. At this time patient will be discha rged home, advised to return with new or worsening symptoms. Educated on worrisome signs and symptoms and when to return. At this time I feel comfortable discharge home. Time: 22:13 Medical Decision Making Medical Decision Making [facility] Narrative: 1835 62-year-old female presents with sudden-onset epigastric discomfort with radiation to bilateral flanks, nausea and vomiting. Physical exam w/ soft and slight tenderness to the epigastric region. Negative Garnica's, Rovsing, McBurney's. Normoactive bowel sounds throughout. Concerns for gastritis, versus GERD versus viral illness. Unlikely cholecystitis, appendicitis, pancreatitis, diverticulitis, bowel obstruction or acute abdomen. Will rule out UTI and electrolyte abnormalities as well as kidney stones. Plan labs, urine, imaging Differential Diagnosis Differential Diagnoses: The differential diagnosis associated with the presentation includes Concerns for gastritis, versus GERD versus viral illness. Unlikely cholecystitis, appendicitis, pancreatitis, diverticulitis, bowel obstruction or acute abdomen. Will rule out UTI and electrolyte abnormalities as well as kidney stones. Admission/Observation Consideration of admission/observation: Escalation of care including admi ssion/observation considered Lab Data [facility] Lab Attestation statement: I reviewed the patient's lab results. 04/16/23 14:07 04/16/23 14:07 Labs: Lab Results 04/16/23 04/16/23 04/16/23 Range/Units 14:07 14:07 14:07 WBC 10.1 (4.8-10.8) X10*3/uL RBC 4.63 (4.20-5.50) X10*6/uL Hgb 13.9 (12.0-16.0) g/dl Hct 42.3 (37.0-47.0) % MCV 91.4 (80.0-98.0) fL MCH 30.0 (27.0-33.0) pg MCHC 32.9 (31.0-35.0) g/dl RDW 14.6 (11.0-16.0) % Plt Count 303 (160-400) X10*3/uL MPV 11.0 (9.4-12.3) fL Immature Gran % (Auto) 0.5 H (0.0-0.4) % Neut % (Auto) 61.0 (45-73) % Lymph % (Auto) 30.4 (20-40) % [place] % (Auto) 6.0 (2-11) % Eos % (Auto) 1.7 (0-4) % Baso % (Auto) 0.4 (0-2) % Lymph # (Auto) 3.1 (1.2-4.9) X10*3/uL [place]ayson # (Auto) 0.6 (0.1-1.2) X10*3/uL Eos # (Auto) 0.2 (0.0-0.4) X10*3/uL Baso # (Auto) 0.0 (0.0-0.2) X10*3/uL Abs Immat Gran (auto) 0.05 H (0.00-0.03) X10*3/uL Absolute Neuts (auto) 6.2 (2.0-8.3) x10*3/uL Absolute Nucleated RBC 0.000 (0.0-0.012) X10*3/uL Nucleated RBC % (auto) 0.0 (0.0-0.2) /100WBC Sodium 141 (135-145) mmol/L Potassium 4.4 (3.3-5.1) mmol/L Chloride 106 (96-108) mmol/L Carbon Dioxide 27 (22-29) mmol/L Anion Gap 12 (12-20) BUN 19 H (9-16) mg/dL Creatinine 0.87 (0.5-1.4) mg/dL Estim Creat Clear Calc 67.2 Estimated GFR > 60 Random Glucose 134 H (60-115) mg/dL Calcium 9.7 (8.4-10.2) mg/dL Total Bilirubin 0.8 (0.0-1.0) mg/dL Direct Bilirubin 0.3 (0.0-0.5) mg/dL AST 53 H (5-31) U/L ALT 31 (0-31) U/L Alkaline Phosphatase 110 (39-117) U/L Troponin I High Sens < 2.7 (<3.5-17.0) ng/L Total Protein 6.8 (6.5-8.0) g/dL Albumin 4.0 (3.5-5.0) g/dL Lipase 52 (8-78) U/L Urine Color Urine Appearance Urine pH (5.0-9.0) Ur Specific [place] (1.005-1.025) Urine Protein (Neg-Trace) mg/dL Urine Glucose (UA) (Negative) mg/dL Urine Ketones (Negative) mg/dL Urine Blood (Negative) Urine Nitrite (Negative) Ur Leukocyte Esterase (Negative) Urine RBC (0-2) /HPF Urine WBC (0-5) /HPF Ur Squamous Epith Cells (0-2) /HPF Urine Bacteria (None Seen) Hyaline Casts (0-2) /LPF 04/16/23 Range/Units 19:11 WBC (4.8-10.8) X10*3/uL RBC (4.20-5.50) X10*6/uL Hgb (12.0-16.0) g/dl Hct (37.0-47.0) % MCV (80.0-98.0) fL MCH (27.0-33.0) pg MCHC (31.0-35.0) g/dl RDW (11.0-16.0) % Plt Count (160-400) X10*3/uL MPV (9.4-12.3) fL Immature Gran % (Auto) (0.0-0.4) % Neut % (Auto) (45-73) % Lymph % (Auto) (20-40) % [place] % (Auto) (2-11) % Eos % (Auto) (0-4) % Baso % (Auto) (0-2) % Lymph # (Auto) (1.2-4.9) X10*3/uL [place] # (Auto) (0.1-1.2) X10*3/uL Eos # (Auto) (0.0-0.4) X10*3/uL Baso # (Auto) (0.0-0.2) X10*3/uL Abs Immat Gran (auto) (0.00-0.03) X10*3/uL Absolute Neuts (auto) (2.0-8.3) x10*3/uL Absolute Nucleated RBC (0.0-0.012) X10*3/uL Nucleated RBC % (auto) (0.0-0.2) /100WBC Sodium (135-145) mmol/L Potassium (3.3-5.1) mmol/L Chloride (96-108) mmol/L Carbon Dioxide (22-29) mmol/L Anion Gap (12-20) BUN (9-16) mg/dL Creatinine (0.5-1.4) mg/dL Estim Creat Clear Calc Estimated GFR Random Glucose (60-115) mg/dL Calcium (8.4-10.2) mg/dL Total Bilirubin (0.0-1.0) mg/dL Direct Bilirubin (0.0-0.5) mg/dL AST (5-31) U/L ALT (0-31) U/L Alkaline Phosphatase (39-117) U/L Troponin I High Sens (<3.5-17.0) ng/L Total Protein (6.5-8.0) g/dL Albumin (3.5-5.0) g/dL Lipase (8-78) U/L Urine Color Dark Yellow Urine Appearance Clear Urine pH 6.0 (5.0-9.0) Ur Specific [place] 1.020 (1.005-1.025) Urine Protein Negative (Neg-Trace) mg/dL Urine Glucose (UA) Negative (Negative) mg/dL Urine Ketones Negative (Negative) mg/dL Urine Blood Trace H (Negative) Urine Nitrite Negative (Negative) Ur Leukocyte Esterase Trace H (Negative) Urine RBC 0-2 (0-2) /HPF Urine WBC 0-5 (0-5) /HPF Ur Squamous Epith Cells 3-5 (0-2) /HPF Urine Bacteria None Seen (None Seen) Hyaline Casts 0-2 (0-2) /LPF Independent Interpretation I performed an independent interpretation of an: CT Scan Radiology Impression Discussion of test interpretation with radiology: I have reviewed the radiologist's reading. Core Measures AMI core measures followed: Yes Measure exclusions: not indicated Medications Administered Discontinued Medications Generic Name Dose Route Start Last Admin Trade Name Freq PRN Reason Stop Dose Admin Al Hydroxide/Mg Hydroxide 30 ml 04/16/23 18:33 04/16/23 19:07 Magnesium Hydrox/Alum Hydrox 30 Ml Oral.Susp PO 04/16/23 18:34 30 ml ONCE ONE Administration Belladonna Alkaloids/Phenobarbital 10 ml 04/16/23 18:33 04/16/23 19:07 Phenobarb/Hyoscy/Atropine/Scop 10 Ml Elixir PO 04/16/23 18:34 10 ml ONCE ONE Administration Ketorolac Tromethamine 30 mg 04/16/23 18:33 04/16/23 19:08 Ketorolac Tromethamine 15 Mg/Ml Vial IVPUSH 04/16/23 18:34 30 mg ONCE ONE Administration Critical Care Time Critical Care Time Critical Care Time: No Discharge Plan Discharge Clinical Impression: Abdominal pain, Nausea & vomiting Patient Disposition: Home, Self-Care Instructions: Acute Nausea and Vomiting (ED), Abdominal Pain (ED) Additional Instructions: Take your medications as prescribed. If you were prescribed antibiotics today, it is important that you take your medication to their entirety, do not skip any doses, do not finish them early. Follow-up with your primary care provider this week. Follow-up with Gastroenterology Return to the emergency department with new or worsening symptoms. Such as fevers, chills, chest pain, shortness of breath, nausea, vomiting, dizziness, headache, vision changes, lethargy In case of emergency call 911 CT/CT abdomen pelvis wo IV con IMPRESSION: 1.? A cause for the patient's epigastric pain has not been found. 2.? Incidental note made of hepatic steatosis, colonic diverticulosis without diverticulitis, uterine lipoleiomyoma and mild degenerative changes L5-S1. ? Fleischner guidelines were followed. Prescriptions: New ketorolac 10 mg tablet 10 mg PO TID PRN (Reason: pain) 5 Days Qty: 15 0RF alum-mag hydroxide-simeth [Maalox Advanced] 200-200-20 mg/5 mL suspension 5 ml PO 5XD PRN (Reason: dyspepsia) Qty: 355 0RF Rx Instructions: administer between meals and at bedtime No Action senna 8.6 mg capsule 17.2 mg PO BEDTIME 30 Days Qty: 60 6RF gabapentin 100 mg capsule 1 cap PO BEDTIME fluoxetine [Prozac] 20 mg capsule 2 cap PO QAM prazosin 2 mg capsule 2 cap PO BEDTIME acetaminophen [Tylenol Extra Strength] 500 mg tablet 1,000 mg PO Q6H PRN (Reason: Pain or fever) Qty: 20 0RF loratadine 10 mg tablet 10 mg PO QAM PRN (Reason: allergies) fluticasone propionate [Flovent HFA] 220 mcg/actuation HFA aerosol inhaler 1 puff inhalation BID atenolol 25 mg tablet 25 mg PO QAM lisinopril 5 mg tablet 5 mg PO QAM fluticasone propionate 50 mcg/actuation spray,suspension 2 spray intranasal DAILY albuterol sulfate [Ventolin HFA] 90 mcg/actuation HFA aerosol inhaler 2 puff inhalation Q4-6H PRN bupropion HCl 150 mg tablet extended release 24 hr 150 mg PO QAM levothyroxine 75 mcg tablet 75 mcg PO QAM sertraline 100 mg tablet 150 mg PO QAM hydrocortisone [Proctosol HC] 2.5 % cream with perineal applicator 1 appl KS BID Qty: 30 6RF simethicone 180 mg capsule 180 mg PO QID 30 Days Qty: 120 6RF Rx Instructions: after meals Linzess 72 mcg capsule 72 mcg PO .q2pm Qty: 30 6RF pantoprazole 40 mg tablet,delayed release (DR/EC) 40 mg PO BID Qty: 60 6RF metoclopramide HCl [Reglan] 5 mg tablet 5 mg PO .TIDAC Qty: 90 6RF Rx Instructions: Provider aware of possible interactions with sertraline and antidepressant, monitoring dicyclomine 20 mg tablet 20 mg PO TID Qty: 90 6RF Referrals: [facility] [place] [facility] [Provider Group] - 1 week Libra Barone MD [Primary Care Provider] - 2 days Stand Alone Forms: Work/School Release
--- NOTE | 2023-04-16 13:54 | ECG_ITS ---
Test Reason : upper abdominal pain Blood Pressure : / mmHG Vent. Rate : 054 BPM Atrial Rate : 054 BPM P-R Int : 150 ms QRS Dur : 078 ms QT Int : 450 ms P-R-T Axes : 056 022 039 degrees QTc Int : 426 ms Sinus bradycardia Cannot rule out Anterior infarct , age undetermined - could be related to lead placement or body habitus Borderline ECG When compared with ECG of 14-AUG-2022 20:32, Vent. rate has decreased BY 28 BPM Referred By: Sandra Esteves Electronically Signed By:BRUNILDA CANTU
[2023-04-16 14:25] LABS: MANUAL DIFF FLAG NO
[2023-04-16 14:32] LABS: Basophils Percent Auto 0.4 % (0-2); Eosinophils Absolute Auto 0.2 X10*3/uL (0.0-0.4); Eosinophils Percent Auto 1.7 % (0-4); Hematocrit 42.3 % (37.0-47.0); Hemoglobin 13.9 g/dl (12.0-16.0); Imm Gran Abs Auto 0.05 X10*3/uL (0.00-0.03); Imm Gran Pct Auto 0.5 % (0.0-0.4); Lymphocytes Absolute Auto 3.1 X10*3/uL (1.2-4.9); Lymphocytes Percent Auto 30.4 % (20-40); Mean Corpuscular HGB Conc 32.9 g/dl (31.0-35.0); Mean Corpuscular Volume 91.4 fL (80.0-98.0); Monocytes Absolute Auto 0.6 X10*3/uL (0.1-1.2); Neutrophils Absolute Auto 6.2 x10*3/uL (2.0-8.3); Platelet Count 303 X10*3/uL (160-400); Red Blood Count 4.63 X10*6/uL (4.20-5.50); Red Cell Distribution Width 14.6 % (11.0-16.0); White Blood Count 10.1 X10*3/uL (4.8-10.8)
[2023-04-16 14:46] LABS: Alanine Aminotransferase 31 U/L (0-31); Alkaline Phosphatase 110 U/L (39-117); Anion Gap 12 (12-20); Aspartate Amino Transferase 53 U/L (5-31); Bilirubin Direct 0.3 mg/dL (0.0-0.5); Bilirubin Total 0.8 mg/dL (0.0-1.0); Blood Urea Nitrogen 19 mg/dL (9-16); Calcium 9.7 mg/dL (8.4-10.2); Carbon Dioxide 27 mmol/L (22-29); Chloride 106 mmol/L (96-108); Creatinine Clr Calc Pharmacy 67.2; Estimated Glomerular Filt Rate > 60; Glucose Random 134 mg/dL (60-115); Lipase 52 U/L (8-78); Potassium 4.4 mmol/L (3.3-5.1); Sodium 141 mmol/L (135-145); Total Protein 6.8 g/dL (6.5-8.0)
[2023-04-16 14:50] LABS: Troponin-I High Sensitivity < 2.7 ng/L (<3.5-17.0)
[2023-04-16 18:10] VITALS: BP 185/92; PULSE 62; RESP 17; TEMP 36.7; O2SAT 98
[2023-04-16] MEDS: PHENobarb/Hyoscy/Atropine/Scop 10 ML ELIXIR PO (19:07)
[2023-04-16] MEDS: Magnesium Hydrox/Alum Hydrox 30 ML ORAL.SUSP PO (19:07)
[2023-04-16] MEDS: Ketorolac Tromethamine 15 MG/ML VIAL 30 MG IVPUSH (19:08)
[2023-04-16 19:37] LABS: Appearance Urine Clear; Color Urine Dark Yellow; Glucose Urine UA Negative (Negative); Leukocyte Esterase Urine Trace (Negative); Nitrite Urine Negative (Negative); UMIC TRIGGER UACC YES; Urine Blood Trace (Negative); Urine Ketones Negative (Negative); Urine Protein Negative (Neg-Trace)
[2023-04-16 19:42] LABS: Bacteria Urine None Seen (None Seen); Hyaline Casts Urine 0-2 /LPF (0-2); RBC Urine 0-2 /HPF (0-2); WBC Urine 0-5 /HPF (0-5)
[2023-04-16 20:49] VITALS: BP 145/73; PULSE 66; RESP 18; TEMP 36.7; O2SAT 95
--- NOTE | 2023-04-16 21:28 | PC.NURSE ---
Pt ca&ox3, no signs of distress. Reports 5/10 pain with pain meds. Will continue to monitor.
--- NOTE | 2023-04-16 22:21 | PC.NURSE ---
Pt ca&ox3, no signs of distress requesting d/c.
== END 2023-04-16 22:33 | disposition home or self-care (01) ==
PROVIDERS: Nurse Practitioner Family; Emergency Provider Emergency Medicine; PCP Family Medicine
DX: R10.30 Lower abdominal pain, unspecified (principal); R11.2 Nausea with vomiting, unspecified; R00.1 Bradycardia, unspecified; R10.13 Epigastric pain; Z79.899 Other long term (current) drug therapy
CPT/HCPCS: 36415; 74176; 80048; 80076; 81001; 83690; 84484; 85025; 93005; 96374; 99284; 99285; J1885

== ENCOUNTER 2023-06-02 10:06 | Outpatient (REF) | payer MEDICAID, SELFPAY ==
[2023-06-02 11:12] LABS: MANUAL DIFF FLAG NO
[2023-06-02 11:31] LABS: Basophils Absolute Auto 0.1 X10*3/uL (0.0-0.2); Basophils Percent Auto 0.6 % (0-2); Eosinophils Absolute Auto 0.2 X10*3/uL (0.0-0.4); Eosinophils Percent Auto 2.8 % (0-4); Hematocrit 43.4 % (37.0-47.0); Hemoglobin 13.6 g/dl (12.0-16.0); Imm Gran Abs Auto 0.04 X10*3/uL (0.00-0.03); Imm Gran Pct Auto 0.5 % (0.0-0.4); Lymphocytes Absolute Auto 2.7 X10*3/uL (1.2-4.9); Lymphocytes Percent Auto 30.8 % (20-40); Mean Corpuscular HGB Conc 31.3 g/dl (31.0-35.0); Mean Corpuscular Hemoglobin 28.5 pg (27.0-33.0); Monocytes Absolute Auto 0.5 X10*3/uL (0.1-1.2); Monocytes Percent Auto 5.4 % (2-11); Neutrophils Absolute Auto 5.2 x10*3/uL (2.0-8.3); Neutrophils Percent Auto 59.9 % (45-73); Platelet Count 307 X10*3/uL (160-400); Red Blood Count 4.77 X10*6/uL (4.20-5.50); Red Cell Distribution Width 14.8 % (11.0-16.0); White Blood Count 8.7 X10*3/uL (4.8-10.8)
[2023-06-02 11:58] LABS: Alanine Aminotransferase 15 U/L (0-31); Alkaline Phosphatase 86 U/L (39-117); Anion Gap 14 (12-20); Aspartate Amino Transferase 17 U/L (5-31); Bilirubin Direct 0.2 mg/dL (0.0-0.5); Bilirubin Total 0.5 mg/dL (0.0-1.0); Blood Urea Nitrogen 11 mg/dL (9-16); Calcium 9.9 mg/dL (8.4-10.2); Carbon Dioxide 25 mmol/L (22-29); Chloride 105 mmol/L (96-108); Cholesterol 208 mg/dL; Estimated Glomerular Filt Rate > 60; Glucose Random 130 mg/dL (60-115); HDL Cholesterol 56 mg/dL; LDL Cholesterol Calculated 135 mg/dl; Potassium 4.5 mmol/L (3.3-5.1); Sodium 139 mmol/L (135-145); Triglycerides 87 mg/dL
[2023-06-02 12:06] LABS: Creatinine Urine 153.02 mg/dL; Microalbum/Creatinine Ratio Ur 5.8 ug/mg cr
[2023-06-02 12:14] LABS: TSH reflex Free T4 1.56 uIU/mL (0.32-4.0)
[2023-06-03 03:01] LABS: HIV AB/AG Nonreactive (Nonreactive); HIV Num 1 0.05 S/CO (0.00-0.99); ~HepC Num1 0.09 S/CO (0.00-0.79); ~Hepatitis C Antibody Nonreactive (Nonreactive)
== END 2023-06-02 10:07 | disposition home or self-care (01) ==
LOC: HO.HHCL 10:06
PROVIDERS: Visit Provider Family Medicine
DX: Z00.00 Encounter for general adult medical examination without abnormal findings (principal); Z11.59 Encounter for screening for other viral diseases; Z11.4 Encounter for screening for human immunodeficiency virus [HIV]; E03.9 Hypothyroidism, unspecified; E11.9 Type 2 diabetes mellitus without complications; A64 Unspecified sexually transmitted disease
CPT/HCPCS: 36415; 80048; 80061; 80076; 82043; 84443; 85025; 86803; 87389

== ENCOUNTER 2023-06-08 12:20 | Outpatient (AMB) | payer MEDICAID, SELFPAY ==
[2023-06-08 13:08] VITALS: BP 124/70; BMI 34.4
--- NOTE | 2023-06-08 13:08 | MHC.OFFVIS ---
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 No complaints. 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 Hypertension LLQ abdominal pain Surgical History History of esophagogastroduodenoscopy (EGD) Hx of colonoscopy Family History Father Family history of prostate problems Colon cancer Mother Tumor Social History Household Members: None Alcohol intake: current Alcohol intake frequency: holidays/special occasions only Patient Tobacco Use Status: Current someday Tobacco user Cigarettes Per Day: 2 Current occupational status: disabled Female Reproductive History Menstrual Age of Menarche: 13 control method: none Total pregnancies: 3 Full term: 2 Number of Living Children: 2 Ab spontaneous: 1 Date of last pap smear: 06/05/22 (negative) History of abnormal pap smear: Yes (+HPV 2020) Review of Systems Const All systems reviewed & are unremarkable except as noted in HPI and below Card Reports as per HPI Resp Reports as per HPI GI Reports as per HPI and Reports no additional complaints Reports as per HPI Physical Exam Vital Signs: Last Vital Signs BP 124/70 06/08/23 13:08 BMI result Body Mass Index 34.4 Const General: cooperative, healthy appearing and comfortable Chest Chest palpation & inspection: normal inspection of the chest and normal palpation of entire chest wall Breast/axilla inspection: normal inspection of the breasts and normal inspection of the axillae Breast/axilla palpation: normal palpation of the breasts, normal palpation of the axillae and no axillary lymphadenopathy Resp Effort & Inspection: normal respiratory effort Auscultation: clear to auscultation bilaterally Percussion: percussion normal Cardio Palpation: normal PMI Rate: regular rate Rhythm: regular rhythm Heart sounds: no murmurs and no rubs Peripheral pulses: Peripheral pulses 2+ throughout GI Inspection: Yes normal to inspection Palpation (GI): Soft to palpation, nontender, no guarding, not rigid and No hepatosplenomegaly present Percussion: Yes normal to percussion Auscultation: normal bowel sounds Rectal Exam - Female: deferred General: Yes bladder normal to palpation External Female Exam: No lesion Speculum Exam - Vagina: normal appearance of the vagina, normal palpation, normal vaginal discharge and not erythematous Speculum Exam - Cervix: normal appearance of the cervix and normal palpation Bimanual exam- vagina & uterus: normal bimanual exam, normal palpation, uterine size normal, bladder normal to palpation, consistency normal and normal palpation Bimanual Exam- Adnexa, other: normal adnexae, no masses and no tenderness Assessment & Plan Assessment & Plan (1) Well woman exam: Code(s): Z01.419 - Encounter for gynecological examination (general) (routine) without abnormal findings Plan: Co testing not indicated this year. Counseled the patient about the recommended dietary allowance of 1200 mg of Calcium & 600 IU of vitamin D. Instructions given to patient to schedule her next screening mammogram in 03/16 , the patient was referred to GI for screening colonoscopy . The patient was instructed to perform monthly self-breast exams and schedule annual exam in a year; all questions answered and the patient verbalized understanding. Orders: Referrals Gastroenterology Referral Z12.11 - Encounter for screening for malignant neoplasm of colon Coding Level of Care Code Est Pt Prev Care 40-64y([id number]) Diagnoses Well woman exam Z01.419
== END 2023-06-08 13:39 | disposition home or self-care (01) ==
LOC: HO.HWS 12:20
PROVIDERS: PCP Family Medicine; Visit Provider Obstetrics & Gynecology
DX: Z01.419 Encounter for gynecological examination (general) (routine) without abnormal findings (principal)
CPT/HCPCS: 99396

== ENCOUNTER → 2023-06-08 12:20 | Outpatient (BNVA) | payer MEDICAID, SELFPAY | PROVIDERS: PCP Family Medicine; Visit Provider Obstetrics & Gynecology ==

== ENCOUNTER 2023-07-17 17:31 | Emergency (ER) | payer MEDICAID, SELFPAY ==
--- NOTE | ~2023-07-17 | CT_ITS ---
EXAMINATION: CT ABDOMEN AND PELVIS WITH CONTRAST CLINICAL INFORMATION: Elevated LFTs COMPARISON: 6 04/16/2023 TECHNIQUE: Multidetector volumetric images were obtained from the superior aspect of the liver through the pubic symphysis following administration 85 mL of Omnipaque 350 intravenous contrast. Sagittal and coronal reformatted images were obtained on the technologist's workstation. Oral contrast: No This CT examination was performed using dose optimization techniques as appropriate, variously including the following: *Automated exposure control *Adjustment of mA and/or kV according to patient size (this includes techniques or standardized protocols for targeted exams where dose is matched to indication/reason for exam; i.e. extremities or head) *Use of iterative reconstruction technique DLP: 643 mGy-cm FINDINGS: LUNG BASES: The visualized lung bases are unremarkable. LIVER, GALLBLADDER, AND BILIARY TREE: The liver is normal in size, shape, and attenuation. No focal hepatic lesion or biliary ductal dilatation is present. The gallbladder is unremarkable with no evidence of radiopaque gallstones, gallbladder wall thickening, or obvious pericholecystic inflammatory changes. PANCREAS: Unremarkable. SPLEEN: Unremarkable. ADRENAL GLANDS: Unremarkable. KIDNEYS AND URETERS: The kidneys are normal in size, shape, and attenuation. No hydronephrosis, hydroureter, or calculi seen. No perinephric stranding. BLADDER: Unremarkable. GASTROINTESTINAL TRACT: Relatively severe diverticulosis throughout the colon. No acute inflammatory changes. Segments of colonic spasming noted. No small bowel pathology. Appendix normal. ABDOMINAL WALL: No significant hernia is appreciated. LYMPH NODES: Normal. VASCULAR: Unremarkable. PELVIC VISCERA: Uterine lipoleiomyoma again noted OSSEOUS STRUCTURES: Unremarkable. CT/CT abdomen pelvis w IV con IMPRESSION: 1. No focal liver abnormality. No biliary ductal dilatation. 2. Severe diverticulosis without acute inflammatory changes. 3. Uterine lipoleiomyoma again noted. Fleischner guidelines were followed.
--- NOTE | ~2023-07-17 | XR_ITS ---
EXAMINATION: XR KNEE, RIGHT CLINICAL INFORMATION: Pain. COMPARISON: 05/30/2020 TECHNIQUE: Four views of the right knee. FINDINGS: The bone mineralization is normal. There is mild medial and lateral knee degenerative change as well as mild patellofemoral degenerative change with mild loss of joint space, subchondral sclerosis and osteophyte formation. There is no fracture. No significant joint effusion. The soft tissues are unremarkable. XR/XR knee RT 4V IMPRESSION: 1. Mild tricompartmental knee degenerative change. 2. No acute osseous abnormality.
--- NOTE | ~2023-07-17 | US_ITS ---
EXAMINATION: US ABDOMEN LIMITED CLINICAL INFORMATION: Pain. COMPARISON: None available. TECHNIQUE: Real-time imaging of the right upper quadrant abdominal viscera. FINDINGS: PANCREAS: Normal. LIVER: Normal. The liver is normal in size. The liver contour is normal. The liver is of increased parenchymal echotexture. There is a 4 mm calcification right lobe the liver. There is no intrahepatic biliary duct dilatation seen. GALLBLADDER: Normal. The gallbladder is physiologically distended without evidence of stones, sludge, polyps, wall thickening or pericholecystic fluid. COMMON BILE DUCT: Normal in caliber measuring 0.7 cm in diameter. RIGHT KIDNEY: Normal. No hydronephrosis. No renal calculi or focal parenchymal lesions. The kidney measures 10.1 cm in maximum dimension. FREE FLUID: None. US/US abdomen limited IMPRESSION: No gallstones or biliary dilatation. Fatty infiltration of the liver.
[2023-07-17 18:28] VITALS: BP 100/54; PULSE 57; RESP 20; O2SAT 95; BMI 34.0
--- NOTE | 2023-07-17 18:39 | ED.GENADULT ---
HPI - General Adult General Chief complaint: General Medical Stated complaint: abdominal pain, leg pain Time Seen by Provider: 07/17/23 19:41 Source: patient Mode of arrival: ambulatory Limitations: no limitations History of Present Illness HPI narrative: 63 yo female with PMH of gastritis, GERD, HTN here with c/o RUQ pain and nausea after eating pizza tonight - no fevers or vomiting. the pain is much better right now she does note the patient has also been having some R knee pain post a fall last week due to falling in wet clothes in the house - R knee hurts but left leg has large bruise has no issues walking on left leg. She denies head strike. She also notes hx of RUQ pain after eating fatty foods. MD complaint: abdominal pain Onset (ago): hour(s) (1 hour prior to arrival ) Location: abdomen Radiation: non-radiation Severity: moderate Quality: sharp Pain Consistency: now resolved (almost very mild now) Relieving factors: rest Exacerbating factors: eating Associated symptoms: nausea/vomiting and other (R knee pain post fall ) Related Data Home Medications Medication Instructions Recorded Confirmed fluoxetine 20 mg capsule (Prozac) 2 cap PO QAM 06/10/21 06/10/21 gabapentin 100 mg capsule 1 cap PO BEDTIME 06/10/21 06/10/21 prazosin 2 mg capsule 2 cap PO BEDTIME 06/10/21 06/10/21 bupropion HCl 150 mg 24 hr tablet, 150 mg PO QAM 05/23/22 extended release levothyroxine 75 mcg tablet 75 mcg PO QAM 05/23/22 sertraline 100 mg tablet 150 mg PO QAM 05/23/22 albuterol sulfate 90 mcg/actuation 2 puff inhalation Q4-6H PRN 03/24/23 aerosol inhaler (Ventolin HFA) atenolol 25 mg tablet 25 mg PO QAM 03/24/23 fluticasone propionate 220 1 puff inhalation BID 03/24/23 mcg/actuation HFA aerosol inhaler (Flovent HFA) fluticasone propionate 50 2 spray intranasal DAILY 03/24/23 mcg/actuation nasal spray,suspension lisinopril 5 mg tablet 5 mg PO QAM 03/24/23 loratadine 10 mg tablet 10 mg PO QAM PRN allergies 03/24/23 Previous Rx's Medication Instructions Recorded hydrocortisone 2.5 % topical cream 1 appl MN BID hemorrhoids #30 grams 05/23/22 with perineal applicator (Proctosol HC) acetaminophen 500 mg tablet 1,000 mg PO Q6H PRN Pain or fever 08/15/22 (Tylenol Extra Strength) #20 tabs sennosides 8.6 mg capsule (senna) 17.2 mg PO BEDTIME constipation 30 10/30/22 days #60 caps dicyclomine 20 mg tablet 20 mg PO TID #90 tabs 12/24/22 linaclotide 72 mcg capsule 72 mcg PO .q2pm #30 caps 12/24/22 (Linzess) metoclopramide HCl 5 mg tablet 5 mg PO .TIDAC #90 tabs 12/24/22 (Reglan) simethicone 180 mg capsule 180 mg PO QID 30 days #120 caps 12/24/22 aluminum-mag hydroxide-simethicone 5 ml PO 5XD PRN dyspepsia #355 mL 04/16/23 200 mg-200 mg-20 mg/5 mL oral susp (Maalox Advanced) ketorolac 10 mg tablet 10 mg PO TID PRN pain 5 days #15 04/16/23 tabs pantoprazole 40 mg tablet,delayed 40 mg PO BID #60 tabs 07/09/23 release ondansetron 4 mg disintegrating 4 mg PO Q8H PRN nausea and 07/17/23 tablet vomiting #20 tabs Allergies Allergy/AdvReac Type Severity Reaction Status Date / Time No Known Allergies Allergy Verified 06/08/23 13:12 [No Known Allergies*] Review of Systems Review of Systems: Constitutional : No Weight loss, No Fever, No Chills ENT/Mouth : No sore throat, No Rhinorrhea Eyes: No Swelling, No Redness Cardiovascular : No Chest Pain, No SOB, NoEdema Respiratory : No Cough, No Sputum, No Wheezing Gastrointestinal : Positive Nausea, no Vomiting, no Diarrhea, positive abdominal Pain, No Hematochezia, No Melena Genitourinary : No Dysuria, No Urinary Frequency, No Hematuria, No Urgency Musculoskeletal : pos joint pain, No Myalgias, No Joint Swelling Skin : No Skin Lesions, No rash Neuro : No Weakness, No Numbness, No Dizziness, No Headache All other systems reviewed and are negative. [facility] Past Medical History Attestation statement: The following information was validated with the patient. Medical History Bacterial vaginosis Diabetes HPV in female Hypertension LLQ abdominal pain Surgical History History of esophagogastroduodenoscopy (EGD) Hx of colonoscopy Family History Family History Father Family history of prostate problems Colon cancer Mother Tumor Social History Social History Household Members: None Alcohol intake: current Alcohol intake frequency: a few times a month Patient Tobacco Use Status: Current someday Tobacco user Cigarettes Per Day: 2 Smoked in Last 30 Days: Yes Use of substances other than those prescribed or required for medical reasons: No Advance Directives: No Advance Directives Information Provided: No Patient : No Current occupational status: disabled Physical Exam ED Vital Signs: Vital Signs - 24 hr 07/17/23 18:28 07/17/23 19:17 07/17/23 22:06 Temperature 98.3 F Pulse Rate 57 57 69 Respiratory Rate 20 18 17 Blood Pressure 100/54 L 134/70 105/63 Pulse Oximetry 95 97 94 Oxygen Delivery Method Room Air Room Air Room Air BMI result Body Mass Index 34.0 Appearance: Alert. Oriented X3. No acute distress. Eyes: Pupils equal, round and reactive to light. ENT: Pharynx normal. Neck: Normal inspection. Neck supple. CVS: Normal heart rate and rhythm. Pulses normal. Respiratory: No respiratory distress. Breath sounds normal. Abdomen: Soft and mild RUQ pain no rebound or gan's sign Skin: Skin warm and dry. Normal skin color. Normal skin turgor. Extremities: No lower extremity edema. No calf ttp R knee full ROM left leg full contusion anteriorly on holland to foot - no pain with ROM and axial loading Neuro: Oriented X 3. No motor deficit. No sensory deficit. Course Course Course Narrative: This is a rapid medical exam: Additional HPI, ROS, PE not included below will be deferred to primary provider. Patient is a 63-year-old female with history of HTN, diverticulitis, chronic constipation, GERD presenting to the emergency department with right upper quadrant abdominal pain since 2:00 p.m. today. Complains of nausea but denies vomiting, diarrhea, constipation. Denies fevers. Patient diaphoretic and appears uncomfortable in triage. States she is prediabetic. Denies chest pain or shortness of breath. Also complaining of atraumatic right knee pain. Denies fall or other injury. Plan: EKG, labs, RUQ U/S, UA, R knee xray Reevaluation(s) Reevaluation #1: CT scan ordered - US shows no acute pathology Medications Administered Discontinued Medications Generic Name Dose Route Start Last Admin Trade Name Freq PRN Reason Stop Dose Admin Sodium Chloride 1,000 mls @ 999 mls/hr 07/17/23 20:00 07/17/23 21:07 Ns IV 07/17/23 21:00 Infused .Q1H1M BRIANDA Infusion Iohexol 85 ml 07/17/23 21:13 07/17/23 21:14 Iohexol 350 Mg/Ml 100 Ml Infus..Btl IV 07/17/23 21:14 85 ml ONCE ONE Administration Morphine Sulfate 4 mg 07/17/23 19:53 07/17/23 20:08 Morphine Sulfate 4 Mg/Ml Cartridge IVPUSH 07/17/23 19:54 4 mg ONCE ONE Administration Protocol Ondansetron HCl 4 mg 07/17/23 19:53 07/17/23 20:09 Ondansetron Hcl 4 Mg/2 Ml Vial IVPUSH 07/17/23 19:54 4 mg ONCE ONE Administration Medical Decision Making Medical Decision Making MDM Narrative: 63 yo female with PMH of gastritis, GERD, HTN here with c/o RUQ pain and nausea after eating pizza tonight at this time will need labs, EKG, and US to evaluate the gallbladder - her pain is almost resolved at this time but IV morphine for pain is ordered. Her left leg has contusion but compartments are soft - distal NV intact, full ROM doubt fracture. R knee mild ttp post fall xray negative. Differential Diagnosis Differential Diagnoses: The differential diagnosis associated with the presentation includes gastritis, pancreatitis, acute cholecystitis, biliary colic knee strain/sprain doubt fracture, has left leg contusion Admission/Observation Consideration of admission/observation: Escalation of care including admission/observation considered no pain stable for DC. tolerating PO mild bump in LFTs - imaging negative Consult Healthcare Provider Management of the patient was discussed with: Product Mgmt Dev Manager (discussed with Dr. Haywood - follow up in clinic this week if pain free) Lab Data MDM Lab Attestation statement: I reviewed the patient's lab results. 07/17/23 18:54 07/17/23 18:54 Labs: Lab Results 07/17/23 07/17/23 07/17/23 Range/Units 18:42 18:54 18:54 WBC 14.0 H (4.8-10.8) X10*3/uL RBC 4.62 (4.20-5.50) X10*6/uL Hgb 13.7 (12.0-16.0) g/dl Hct 41.5 (37.0-47.0) % MCV 89.8 (80.0-98.0) fL MCH 29.7 (27.0-33.0) pg MCHC 33.0 (31.0-35.0) g/dl RDW 15.2 (11.0-16.0) % Plt Count 285 (160-400) X10*3/uL MPV 10.5 (9.4-12.3) fL Immature Gran % (Auto) 0.4 (0.0-0.4) % Neut % (Auto) 82.4 H (45-73) % Lymph % (Auto) 10.7 L (20-40) % [place] % (Auto) 5.2 (2-11) % Eos % (Auto) 0.9 (0-4) % Baso % (Auto) 0.4 (0-2) % Lymph # (Auto) 1.5 (1.2-4.9) X10*3/uL [place] # (Auto) 0.7 (0.1-1.2) X10*3/uL Eos # (Auto) 0.1 (0.0-0.4) X10*3/uL Baso # (Auto) 0.1 (0.0-0.2) X10*3/uL Abs Immat Gran (auto) 0.05 H (0.00-0.03) X10*3/uL Absolute Neuts (auto) 11.5 H (2.0-8.3) x10*3/uL Absolute Nucleated RBC 0.000 (0.0-0.012) X10*3/uL Nucleated RBC % (auto) 0.0 (0.0-0.2) /100WBC Sodium 139 (135-145) mmol/L Potassium 4.1 (3.3-5.1) mmol/L Chloride 105 (96-108) mmol/L Carbon Dioxide 26 (22-29) mmol/L Anion Gap 12 (12-20) BUN 17 H (9-16) mg/dL Creatinine 0.77 (0.5-1.4) mg/dL Estim Creat Clear Calc 74.3 Estimated GFR > 60 POC Glucose 179 H (60-115) mg/dL Random Glucose 187 H (60-115) mg/dL Calcium 9.7 (8.4-10.2) mg/dL Total Bilirubin 1.7 H (0.0-1.0) mg/dL Direct Bilirubin (0.0-0.5) mg/dL AST 132 H (5-31) U/L ALT 63 H (0-31) U/L Alkaline Phosphatase 152 H (39-117) U/L Troponin I High Sens (<3.5-17.0) ng/L Total Protein 7.0 (6.5-8.0) g/dL Albumin 3.9 (3.5-5.0) g/dL Lipase 26 (8-78) U/L Urine Color Urine Appearance Urine pH (5.0-9.0) Ur Specific [place] (1.005-1.025) Urine Protein (Neg-Trace) mg/dL Urine Glucose (UA) (Negative) mg/dL Urine Ketones (Negative) mg/dL Urine Blood (Negative) Urine Nitrite (Negative) Ur Leukocyte Esterase (Negative) Urine RBC (0-2) /HPF Urine WBC (0-5) /HPF Ur Squamous Epith Cells (0-2) /HPF Urine Bacteria (None Seen) Hyaline Casts (0-2) /LPF 07/17/23 07/17/23 07/17/23 Range/Units 18:54 19:40 21:29 WBC (4.8-10.8) X10*3/uL RBC (4.20-5.50) X10*6/uL Hgb (12.0-16.0) g/dl Hct (37.0-47.0) % MCV (80.0-98.0) fL MCH (27.0-33.0) pg MCHC (31.0-35.0) g/dl RDW (11.0-16.0) % Plt Count (160-400) X10*3/uL MPV (9.4-12.3) fL Immature Gran % (Auto) (0.0-0.4) % Neut % (Auto) (45-73) % Lymph % (Auto) (20-40) % [place] % (Auto) (2-11) % Eos % (Auto) (0-4) % Baso % (Auto) (0-2) % Lymph # (Auto) (1.2-4.9) X10*3/uL [place] # (Auto) (0.1-1.2) X10*3/uL Eos # (Auto) (0.0-0.4) X10*3/uL Baso # (Auto) (0.0-0.2) X10*3/uL Abs Immat Gran (auto) (0.00-0.03) X10*3/uL Absolute Neuts (auto) (2.0-8.3) x10*3/uL Absolute Nucleated RBC (0.0-0.012) X10*3/uL Nucleated RBC % (auto) (0.0-0.2) /100WBC Sodium (135-145) mmol/L Potassium (3.3-5.1) mmol/L Chloride (96-108) mmol/L Carbon Dioxide (22-29) mmol/L Anion Gap (12-20) BUN (9-16) mg/dL Creatinine (0.5-1.4) mg/dL Estim Creat Clear Calc Estimated GFR POC Glucose (60-115) mg/dL Random Glucose (60-115) mg/dL Calcium (8.4-10.2) mg/dL Total Bilirubin 1.9 H (0.0-1.0) mg/dL Direct Bilirubin 1.4 H (0.0-0.5) mg/dL AST 307 H (5-31) U/L ALT 145 H (0-31) U/L Alkaline Phosphatase 193 H (39-117) U/L Troponin I High Sens < 2.7 (<3.5-17.0) ng/L Total Protein 6.9 (6.5-8.0) g/dL Albumin 3.7 (3.5-5.0) g/dL Lipase (8-78) U/L Urine Color Dark Yellow Urine Appearance Clear Urine pH 5.5 (5.0-9.0) Ur Specific [place] 1.015 (1.005-1.025) Urine Protein Negative (Neg-Trace) mg/dL Urine Glucose (UA) Negative (Negative) mg/dL Urine Ketones Trace (Negative) mg/dL Urine Blood Trace H (Negative) Urine Nitrite Negative (Negative) Ur Leukocyte Esterase Small (1+) H (Negative) Urine RBC 0-2 (0-2) /HPF Urine WBC 0-5 (0-5) /HPF Ur Squamous Epith Cells 3-5 (0-2) /HPF Urine Bacteria Trace (None Seen) Hyaline Casts 3-5 (0-2) /LPF Independent Interpretation I performed an independent interpretation of an: EKG, Plain X-Ray (no fracture), Ultrasound (no stones) and CT Scan (no stones seen) Interpretation: Rate: 52 Rhythm: sinus bradycardia Jet: normal Normal P waves. Normal PATRIA. Normal QRS complex. ST T wave : no ANA, inverted T wave III qTC: norrmal prior studies: no acute ischemia The study has been interpreted contemporaneously by me. . Radiology Impression Discussion of test interpretation with radiology: I have reviewed the radiologist's reading. External Record Review External record reviewed: Inpatient record Chronic Conditions Patient?s care impacted by: Other Discharge Plan Discharge Clinical Impression: Abnormal LFTs, Abdominal pain Patient Disposition: Home, Self-Care Instructions: Abdominal Pain (ED) Additional Instructions: avoid tylenol and alcohol. recheck your liver function tests with your doctor on Thursday. return for worsening pain, fevers, vomiting, yellow eyes or skin. eat a low fat diet and avoid fatty foods. please follow up with the surgeon and call schedule appointment this week. Evite el tylenol y el alcohol. Vuelva a controlar juan pruebas de funci?n hep?annabella con cordova m?dico el es. Regrese si el dolor empeora, fiebre, v?mitos, ojos o piel amarillos. Consuma jordan dieta baja en grasas y evite los alimentos grasos. pawel un seguimiento con el parkero y mattame para programar jordan luis enrique esta semana. Prescriptions: New ondansetron 4 mg tablet,disintegrating 4 mg PO Q8H PRN (Reason: nausea and vomiting) Qty: 20 0RF No Action senna 8.6 mg capsule 17.2 mg PO BEDTIME 30 Days Qty: 60 6RF pantoprazole 40 mg tablet,delayed release (DR/EC) 40 mg PO BID Qty: 60 6RF gabapentin 100 mg capsule 1 cap PO BEDTIME fluoxetine [Prozac] 20 mg capsule 2 cap PO QAM prazosin 2 mg capsule 2 cap PO BEDTIME acetaminophen [Tylenol Extra Strength] 500 mg tablet 1,000 mg PO Q6H PRN (Reason: Pain or fever) Qty: 20 0RF ketorolac 10 mg tablet 10 mg PO TID PRN (Reason: pain) 5 Days Qty: 15 0RF alum-mag hydroxide-simeth [Maalox Advanced] 200-200-20 mg/5 mL suspension 5 ml PO 5XD PRN (Reason: dyspepsia) Qty: 355 0RF Rx Instructions: administer between meals and at bedtime loratadine 10 mg tablet 10 mg PO QAM PRN (Reason: allergies) fluticasone propionate [Flovent HFA] 220 mcg/actuation HFA aerosol inhaler 1 puff inhalation BID atenolol 25 mg tablet 25 mg PO QAM lisinopril 5 mg tablet 5 mg PO QAM fluticasone propionate 50 mcg/actuation spray,suspension 2 spray intranasal DAILY albuterol sulfate [Ventolin HFA] 90 mcg/actuation HFA aerosol inhaler 2 puff inhalation Q4-6H PRN bupropion HCl 150 mg tablet extended release 24 hr 150 mg PO QAM levothyroxine 75 mcg tablet 75 mcg PO QAM sertraline 100 mg tablet 150 mg PO QAM hydrocortisone [Proctosol HC] 2.5 % cream with perineal applicator 1 appl MN BID Qty: 30 6RF simethicone 180 mg capsule 180 mg PO QID 30 Days Qty: 120 6RF Rx Instructions: after meals Linzess 72 mcg capsule 72 mcg PO .q2pm Qty: 30 6RF metoclopramide HCl [Reglan] 5 mg tablet 5 mg PO .TIDAC Qty: 90 6RF Rx Instructions: Provider aware of possible interactions with sertraline and antidepressant, monitoring dicyclomine 20 mg tablet 20 mg PO TID Qty: 90 6RF Referrals: Moshe Haywood MD [Physician] - (call Thursday)
--- NOTE | 2023-07-17 18:40 | ECG_ITS ---
Test Reason : EPIGASTRIC PAIN Blood Pressure : / mmHG Vent. Rate : 052 BPM Atrial Rate : 052 BPM P-R Int : 116 ms QRS Dur : 082 ms QT Int : 478 ms P-R-T Axes : 051 023 026 degrees QTc Int : 444 ms Sinus bradycardia Otherwise normal ECG When compared with ECG of 16-APR-2023 14:00, No significant change was found Referred By: Aislinn Ayala Electronically Signed By:PROSPER CHONG
[2023-07-17 18:53] LABS: Glucose, Whole Blood 179 mg/dL (60-115)
[2023-07-17 18:58] LABS: MANUAL DIFF FLAG NO
[2023-07-17 19:01] LABS: Basophils Absolute Auto 0.1 X10*3/uL (0.0-0.2); Basophils Percent Auto 0.4 % (0-2); Eosinophils Absolute Auto 0.1 X10*3/uL (0.0-0.4); Eosinophils Percent Auto 0.9 % (0-4); Hematocrit 41.5 % (37.0-47.0); Hemoglobin 13.7 g/dl (12.0-16.0); Imm Gran Abs Auto 0.05 X10*3/uL (0.00-0.03); Imm Gran Pct Auto 0.4 % (0.0-0.4); Lymphocytes Absolute Auto 1.5 X10*3/uL (1.2-4.9); Lymphocytes Percent Auto 10.7 % (20-40); Mean Corpuscular Hemoglobin 29.7 pg (27.0-33.0); Mean Corpuscular Volume 89.8 fL (80.0-98.0); Mean Platelet Volume 10.5 fL (9.4-12.3); Monocytes Absolute Auto 0.7 X10*3/uL (0.1-1.2); Monocytes Percent Auto 5.2 % (2-11); Neutrophils Absolute Auto 11.5 x10*3/uL (2.0-8.3); Neutrophils Percent Auto 82.4 % (45-73); Platelet Count 285 X10*3/uL (160-400); Red Blood Count 4.62 X10*6/uL (4.20-5.50); Red Cell Distribution Width 15.2 % (11.0-16.0)
[2023-07-17 19:15] LABS: Alanine Aminotransferase 63 U/L (0-31); Albumin Level 3.9 g/dL (3.5-5.0); Alkaline Phosphatase 152 U/L (39-117); Anion Gap 12 (12-20); Aspartate Amino Transferase 132 U/L (5-31); Bilirubin Total 1.7 mg/dL (0.0-1.0); Blood Urea Nitrogen 17 mg/dL (9-16); Calcium 9.7 mg/dL (8.4-10.2); Carbon Dioxide 26 mmol/L (22-29); Chloride 105 mmol/L (96-108); Creatinine Clr Calc Pharmacy 74.3; Estimated Glomerular Filt Rate > 60; Glucose Random 187 mg/dL (60-115); Lipase 26 U/L (8-78); Potassium 4.1 mmol/L (3.3-5.1); Sodium 139 mmol/L (135-145)
[2023-07-17 19:17] VITALS: BP 134/70; PULSE 57; RESP 18; O2SAT 97
[2023-07-17 19:24] LABS: Troponin-I High Sensitivity < 2.7 ng/L (<3.5-17.0)
--- NOTE | 2023-07-17 19:28 | PC.NURSE ---
Assumed care of pt. pt lying on sretcher, visibly uncomfortable. pt endoring R knee pain and RUQ abdominal pain x 1 day.. pt sts only abd hx is ulcers. IV established, labs resulted, pending urine specimen and US.
[2023-07-17 19:52] LABS: Appearance Urine Clear; Color Urine Dark Yellow; Glucose Urine UA Negative (Negative); Leukocyte Esterase Urine Small (1+) (Negative); Nitrite Urine Negative (Negative); PH 5.5 (5.0-9.0); Specific Gravity - Urine 1.015 (1.005-1.025); UMIC TRIGGER UACC YES; Urine Blood Trace (Negative); Urine Ketones Trace mg/dL (Negative); Urine Protein Negative (Neg-Trace)
[2023-07-17 20:00] LABS: Bacteria Urine Trace (None Seen); RBC Urine 0-2 /HPF (0-2); UACC Culture Trigger YES; WBC Urine 0-5 /HPF (0-5)
[2023-07-17] MEDS: Morphine Sulfate 4 MG/ML CARTRIDGE IVPUSH (20:08)
[2023-07-17] MEDS: 0.9 % Sodium Chloride 1,000 ML 999 ML IV (20:09)
[2023-07-17] MEDS: ondansetron HCL 4 MG/2 ML VIAL IVPUSH (20:09)
[2023-07-17] MEDS: iohexoL 350 MG/ML 100 ML INFUS..BTL 85 ML IV (21:14)
[2023-07-17 21:53] LABS: Alanine Aminotransferase 145 U/L (0-31); Albumin Level 3.7 g/dL (3.5-5.0); Alkaline Phosphatase 193 U/L (39-117); Aspartate Amino Transferase 307 U/L (5-31); Bilirubin Direct 1.4 mg/dL (0.0-0.5); Bilirubin Total 1.9 mg/dL (0.0-1.0); Total Protein 6.9 g/dL (6.5-8.0)
[2023-07-17 22:06] VITALS: BP 105/63; PULSE 69; RESP 17; TEMP 36.8; O2SAT 94
== END 2023-07-17 22:57 | disposition home or self-care (01) ==
PROVIDERS: Registered Nurse Emergency; Emergency Provider Emergency Medicine; PCP Family Medicine
DX: R79.89 Other specified abnormal findings of blood chemistry (principal); R10.11 Right upper quadrant pain; M25.561 Pain in right knee; R00.1 Bradycardia, unspecified; R10.2 Pelvic and perineal pain; F17.210 Nicotine dependence, cigarettes, uncomplicated; Z79.899 Other long term (current) drug therapy; Z71.6 Tobacco abuse counseling
CPT/HCPCS: 36415; 73564; 74177; 76705; 80053; 80076; 81001; 82947; 83690; 84484; 85025; 87086; 93005; 96361; 96374; 96375; 99284; 99285; J2270; J2405; Q9967

== ENCOUNTER 2023-07-21 12:23 | Outpatient (REF) | payer MEDICAID, SELFPAY ==
[2023-07-21 14:31] LABS: Alanine Aminotransferase 168 U/L (0-31); Albumin Level 3.9 g/dL (3.5-5.0); Alkaline Phosphatase 181 U/L (39-117); Amylase 48 U/L (28-100); Aspartate Amino Transferase 33 U/L (5-31); Bilirubin Direct 0.2 mg/dL (0.0-0.5); Bilirubin Total 0.4 mg/dL (0.0-1.0); Lipase 45 U/L (8-78); Total Protein 7.2 g/dL (6.5-8.0)
[2023-07-21 16:36] LABS: Gamma Glutamyl Transpeptidase 530 U/L (7-33)
[2023-07-24 11:29] LABS: Mitochondrial Antibodies NEGATIVE (NEGATIVE)
[2023-07-26 22:53] LABS: Smooth Muscle Antibody <20 U (<20)
== END 2023-07-21 12:24 | disposition home or self-care (01) ==
LOC: HO.LAB 12:23
PROVIDERS: PCP Family Medicine; Visit Provider Nurse Practitioner
DX: R10.13 Epigastric pain (principal); K21.9 Gastro-esophageal reflux disease without esophagitis; K59.04 Chronic idiopathic constipation; K30 Functional dyspepsia; R14.0 Abdominal distension (gaseous); R74.01 Elevation of levels of liver transaminase levels
CPT/HCPCS: 36415; 80076; 82150; 82977; 83690; 86015; 86255; 86256; 99212

== ENCOUNTER 2023-07-21 12:24 | Outpatient (AMB) | payer MEDICAID, SELFPAY ==
[2023-07-21 12:27] VITALS: BP 125/85; PULSE 56; BMI 34.6
--- NOTE | 2023-07-21 12:27 | MHC.OFFVIS ---
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 The RB has not changed since last time. However, she says she has not yet used it for 2 weeks straight.? I again educated that she twice a day for at least 14 days 3 to completely heal any hemorrhoidal bleeding. She has a new problem of a squeezing pain in the epigastric area that persists for hours after eating. This started 3 weeks ago. It is 10/10 and is colicky. She is continues on protonix bid and no other medications changes, no diet changes and no other illness. She tried TUMS w/o any relief and she feels this is not HB. Ordinarily I would question whether this may be related to bowel cramping but she maintains that she continues taking her dicyclomine 20 mg 3 times a day so this seems less likely.? Of course she also continues on her Reglan 5 mg 3 times a day as well.? She also has simethicone that she utilizes 4 times a day for gas trapping and bloating. I will get an US although she had a CT in 07/2022 that did not show any GB pathology.? I advised her that even if the ultrasound is negative we may need to progress to a HIDA scan unless I can discern some other possible cause for this pain.? Return office visit after the ultrasound. (2) Chronic idiopathic constipation: ?Code(s): K59.04 - Chronic idiopathic constipation (3) GERD (gastroesophageal reflux disease): ?Code(s): K21.9 - Gastro-esophageal reflux disease without esophagitis (4) Delayed gastric emptying: ?Code(s): K30 - Functional dyspepsia (5) Abdominal bloating: ?Code(s): R14.0 - Abdominal distension (gaseous) ? ? ? Orders: Orders US abdomen complet e Today R10.13 - Epigastri c pain ? ULTRASOUND OF THE ABDOMEN 07/17/23 FINDINGS: PANCREAS: Normal. LIVER: Normal. The liver is normal in size. The liver contour is normal. The liver is of increased parenchymal echotexture. There is a 4 mm calcification right lobe the liver. There is no intrahepatic biliary duct dilatation seen. GALLBLADDER: Normal. The gallbladder is physiologically distended without evidence of stones, sludge, polyps, wall thickening or pericholecystic fluid. COMMON BILE DUCT: Normal in caliber measuring 0.7 cm in diameter. RIGHT KIDNEY: Normal. No hydronephrosis. No renal calculi or focal parenchymal lesions. The kidney measures 10.1 cm in maximum dimension. FREE FLUID: None. US/US abdomen limited IMPRESSION: No gallstones or biliary dilatation. ? Fatty infiltration of the liver. CT ABDOMEN AND PELVIS 07/17/23 INDINGS: LUNG BASES: The visualized lung bases are unremarkable.? LIVER, GALLBLADDER, AND BILIARY TREE: The liver is normal in size, shape, and attenuation. No focal hepatic lesion or biliary ductal dilatation is present. The gallbladder is unremarkable with no evidence of radiopaque gallstones, gallbladder wall thickening, or obvious pericholecystic inflammatory changes.? PANCREAS: Unremarkable.? SPLEEN: Unremarkable.? ADRENAL GLANDS: Unremarkable.? KIDNEYS AND URETERS: The kidneys are normal in size, shape, and attenuation. No hydronephrosis, hydroureter, or calculi seen. No perinephric stranding. ? BLADDER: Unremarkable.? GASTROINTESTINAL TRACT: Relatively severe diverticulosis throughout the colon. No acute inflammatory changes. Segments of colonic spasming noted. No small bowel pathology. Appendix normal.? ABDOMINAL WALL: No significant hernia is appreciated.? LYMPH NODES: Normal. VASCULAR: Unremarkable. PELVIC VISCERA: Uterine lipoleiomyoma again noted? OSSEOUS STRUCTURES: Unremarkable.? CT/CT abdomen pelvis w IV con IMPRESSION: 1.? No focal liver abnormality. No biliary ductal dilatation. 2.? Severe diverticulosis without acute inflammatory changes. 3.? Uterine lipoleiomyoma again noted. TODAY'S VISIT Haitian #Sophie Live No change in her epi pain, but she did present to the ER for a pain that was more severe and radiated around to her back. She says the pain at that level has not returned. She was told to see a surgeon by the ER doctor to check the GB. US and CT no stones, HIDA scan best next step. Will repeat liver panel etc. She continues on bid protonix, simethicone reglan, bentyl, Linzess and senna. CT showed GASTROINTESTINAL TRACT: Relatively severe diverticulosis throughout the colon. No acute inflammatory changes. Segments of colonic spasming noted. No small bowel pathology. Appendix normal.? ROV 4 weeks. PFSH Medical History Bacterial vaginosis Diabetes HPV in female Hypertension LLQ abdominal pain Surgical History History of esophagogastroduodenoscopy (EGD) Hx of colonoscopy Family History Father Family history of prostate problems Colon cancer Mother Tumor Social History Household Members: None Alcohol intake: current Alcohol intake frequency: a few times a month Patient Tobacco Use Status: Current someday Tobacco user Cigarettes Per Day: 2 Current occupational status: disabled Female Reproductive History Menstrual Age of Menarche: 13 Review of Systems Const Denies fatigue, Denies fever(s), Denies night sweats, Denies poor appetite and Denies weight loss ENT Reports Normal hearing present, Denies dental pain, Denies dysphagia, Denies hearing loss, Denies mouth pain, Denies odynophagia, Denies throat swelling, Denies tongue swelling and Reports other (Dentition adequate) Card Reports no additional complaints Resp Reports no additional complaints GI Reports abdominal pain, Denies melena, Reports bloating, Denies hematochezia, Reports constipation, Denies GI cramping, Denies dysphagia, Denies excessive flatus, Denies early satiety, Reports heartburn, Denies diarrhea, Reports nausea, Denies odynophagia, Denies vomiting and Denies hematemesis Skin/Breast Denies pruritus, Denies lesions, Denies rash and Denies jaundice Neuro Reports Normal hearing present and Denies Abnormal speech present Endo Denies fatigue Aller/Immun Denies throat swelling and Denies tongue swelling Physical Exam Vital Signs: Last Vital Signs Pulse 56 07/21/23 12:27 BP 125/85 07/21/23 12:27 BMI result Body Mass Index 34.6 Const General: cooperative, no acute distress, well developed and well groomed Nutritional Appearance: well nourished and obese Orientation/consciousness: oriented to person, oriented to place and oriented to time Limitations: language barrier HEENT Head: Yes normocephalic and Yes atraumatic Eyes General: appearance normal, both eyes and all related structures Pupils: Equal, round and reactive pupils present Neck Neck: Yes normal visual inspection and Yes no lymphadenopathy Thyroid: Thyroid normal Resp Effort & Inspection: normal respiratory effort and able to speak in complete sentences Auscultation: clear to auscultation bilaterally Cardio Rate: regular rate Rhythm: regular rhythm Heart sounds: Normal, physiologic split S2 sound present Peripheral pulses: radial pulses present and posterior tibial pulses present GI Inspection: No distended, No Abdominal panniculus present and Yes obesity Palpation (GI): Soft to palpation, Tenderness to palpation present (GI) in the epigastrum, no guarding, not rigid and No hepatosplenomegaly present Percussion: Yes normal to percussion Auscultation: normal bowel sounds Rectal Exam - Female: deferred Skin General skin exam: no rashes or lesions noted, turgor normal, skin not dry, no jaundice, No spider nevi and no striae Rashes: no rashes Nails: normal Neuro General: oriented to person, oriented to place and oriented to time Cranial nerves: Yes Equal, round and reactive pupils present and Yes Normal hearing present Speech: No Abnormal speech present Extrem General: Yes normal to inspection, No clubbing, No cyanosis and No edema Psych Appearance: grossly normal and well kempt Mental Status: mental status grossly normal Speech and movement: Normal speech and movement present Affect: normal affect Attitude: cooperative Thought process: Normal thought process present and not confabulating Thought content: Normal thought content present Insight: Limited insight present (Psych) Judgement: Limited judgement present (Psych) Results Reviewed Results Reviewed: ULTRASOUND OF THE ABDOMEN 07/17/23 FINDINGS: PANCREAS: Normal. LIVER: Normal. The liver is normal in size. The liver contour is normal. The liver is of increased parenchymal echotexture. There is a 4 mm calcification right lobe the liver. There is no intrahepatic biliary duct dilatation seen. GALLBLADDER: Normal. The gallbladder is physiologically distended without evidence of stones, sludge, polyps, wall thickening or pericholecystic fluid. COMMON BILE DUCT: Normal in caliber measuring 0.7 cm in diameter. RIGHT KIDNEY: Normal. No hydronephrosis. No renal calculi or focal parenchymal lesions. The kidney measures 10.1 cm in maximum dimension. FREE FLUID: None. US/US abdomen limited IMPRESSION: No gallstones or biliary dilatation. ? Fatty infiltration of the liver. CT ABDOMEN AND PELVIS 07/17/23 INDINGS: LUNG BASES: The visualized lung bases are unremarkable.? LIVER, GALLBLADDER, AND BILIARY TREE: The liver is normal in size, shape, and attenuation. No focal hepatic lesion or biliary ductal dilatation is present. The gallbladder is unremarkable with no evidence of radiopaque gallstones, gallbladder wall thickening, or obvious pericholecystic inflammatory changes.? PANCREAS: Unremarkable.? SPLEEN: Unremarkable.? ADRENAL GLANDS: Unremarkable.? KIDNEYS AND URETERS: The kidneys are normal in size, shape, and attenuation. No hydronephrosis, hydroureter, or calculi seen. No perinephric stranding. ? BLADDER: Unremarkable.? GASTROINTESTINAL TRACT: Relatively severe diverticulosis throughout the colon. No acute inflammatory changes. Segments of colonic spasming noted. No small bowel pathology. Appendix normal.? ABDOMINAL WALL: No significant hernia is appreciated.? LYMPH NODES: Normal. VASCULAR: Unremarkable. PELVIC VISCERA: Uterine lipoleiomyoma again noted? OSSEOUS STRUCTURES: Unremarkable.? CT/CT abdomen pelvis w IV con IMPRESSION: 1.? No focal liver abnormality. No biliary ductal dilatation. 2.? Severe diverticulosis without acute inflammatory changes. 3.? Uterine lipoleiomyoma again noted. Assessment & Plan Assessment & Plan (1) Epigastric pain: Code(s): R10.13 - Epigastric pain Plan: Haitian #Sophie Live No change in her epi pain, but she did present to the ER for a pain that was more severe and radiated around to her back. She says the pain at that level has not returned. She was told to see a surgeon by the ER doctor to check the GB. US and CT no stones, HIDA scan best next step. Will repeat liver panel etc. She continues on bid protonix, simethicone reglan, bentyl, Linzess and senna. CT showed GASTROINTESTINAL TRACT: Relatively severe diverticulosis throughout the colon. No acute inflammatory changes. Segments of colonic spasming noted. No small bowel pathology. Appendix normal.? ROV 4 weeks. (2) GERD (gastroesophageal reflux disease): Code(s): K21.9 - Gastro-esophageal reflux disease without esophagitis (3) Chronic idiopathic constipation: Code(s): K59.04 - Chronic idiopathic constipation (4) Delayed gastric emptying: Code(s): K30 - Functional dyspepsia (5) Abdominal bloating: Code(s): R14.0 - Abdominal distension (gaseous) (6) Transaminitis: Code(s): R74.01 - Elevation of levels of liver transaminase levels Orders: Orders Lipase 07/21/23 R10.13 - Epigastric pain, R74.01 - Elevation of levels of liver transaminase levels Amylase 07/21/23 R10.13 - Epigastric pain, R74.01 - Elevation of levels of liver transaminase levels Gamma Glutamyl Transpeptidase 07/21/23 R10.13 - Epigastric pain, R74.01 - Elevation of levels of liver transaminase levels Liver Panel 07/21/23 R10.13 - Epigastric pain, R74.01 - Elevation of levels of liver transaminase levels Bilirubin Direct 07/22/23 R10.13 - Epigastric pain, R74.01 - Elevation of levels of liver transaminase levels Mitochondrial Antibody 07/21/23 R10.13 - Epigastric pain, R74.01 - Elevation of levels of liver transaminase levels Smooth Muscle Antibody 07/21/23 R10.13 - Epigastric pain, R74.01 - Elevation of levels of liver transaminase levels NM hepatobiliary w pharm 07/21/23 R74.01 - Elevation of levels of liver transaminase levels, R10.13 - Epigastric pain Coding Level of Care Code Est Pt Level 3 (50039) Diagnoses Epigastric pain R10.13 GERD (gastroesophageal reflux disease) K21.9 Chronic idiopathic constipation K59.04 Delayed gastric emptying K30 Abdominal bloating R14.0 Transaminitis R74.01
== END 2023-07-21 12:54 | disposition home or self-care (01) ==
PROVIDERS: PCP Family Medicine; Visit Provider Nurse Practitioner
DX: K21.9 Gastro-esophageal reflux disease without esophagitis (principal); K59.04 Chronic idiopathic constipation; K30 Functional dyspepsia; R74.01 Elevation of levels of liver transaminase levels
CPT/HCPCS: 99213

== ENCOUNTER 2023-07-22 13:46 | Outpatient (REF) | payer MEDICAID, SELFPAY ==
[2023-07-22 15:17] LABS: Bilirubin Direct 0.1 mg/dL (0.0-0.5)
[2023-07-22 15:31] LABS: Monotest Negative (Negative)
[2023-07-23 08:40] LABS: HBS Num1 14.19 mIU/mL (0-7.99); HBc Num1 0.08 S/CO (0.00-0.79); HBsAGNum1 0.49 S/CO (0.00-0.99); Hepatitis B Core Antibody Nonreactive (Nonreactive); Hepatitis B Surface Antigen Negative (Negative); ~HepC Num1 0.07 S/CO (0.00-0.79); ~Hepatitis A Antibody IgM Nonreactive (Nonreactive); ~Hepatitis B Surface Antibody REACTIVE (Nonreactive); ~Hepatitis C Antibody Nonreactive (Nonreactive)
== END 2023-07-22 13:47 | disposition home or self-care (01) ==
LOC: HO.LAB 13:46
PROVIDERS: PCP Family Medicine; Visit Provider Nurse Practitioner
DX: R10.13 Epigastric pain (principal); R74.01 Elevation of levels of liver transaminase levels
CPT/HCPCS: 36415; 82248; 86308; 86704; 86706; 86709; 86803; 87340

== ENCOUNTER 2023-07-24 06:48 | Emergency (ER) | payer MEDICAID, SELFPAY ==
--- NOTE | ~2023-07-24 | XR_ITS ---
EXAMINATION: XR KNEE, RIGHT CLINICAL INFORMATION: Right knee pain and swelling COMPARISON: 07/17/2023 TECHNIQUE: Four views of the right knee. FINDINGS: There are changes of osteoarthritis with more prominent changes at the patellofemoral compartment but seen through all 3 compartments of right knee and there is growing since previous examination joint effusion. XR/XR knee RT 4V IMPRESSION: 3 compartmental degenerative changes with joint effusion
--- NOTE | ~2023-07-24 | US_ITS ---
EXAMINATION: US VENOUS ULTRASOUND WITH DOPPLER LOWER EXTREMITY, RIGHT CLINICAL INFORMATION: Right lower extremity pain COMPARISON: None available. TECHNIQUE: Ultrasound of the deep veins is performed from the hip to the calf with compression sonography and color and pulse Doppler assessment. Spectral analysis with color-flow imaging is performed. FINDINGS: There is normal venous compression and respiratory variation and augmented flow. The visualized common femoral vein, superficial femoral vein, profunda femoral vein, popliteal vein, and the trifurcation region shows no evidence of deep venous thrombosis. There is no significant popliteal fossa cyst. If the patient's symptoms persist, followup ultrasound in 5 days 7 days might be of value to exclude proximal propagation from a non-visualized calf vein. US/US venous duplex LE RT IMPRESSION: No DVT demonstrated in the right lower extremity.
[2023-07-24 06:49] VITALS: BP 143/74; PULSE 54; RESP 18; TEMP 36.6; O2SAT 99; BMI 34.5
--- NOTE | 2023-07-24 07:23 | ED_ITS ---
HPI - Extremity Problem General Chief complaint: Extremity Injury, Lower Stated complaint: right leg inj Time Seen by Provider: 07/24/23 07:16 Source: patient and old records reviewed Mode of arrival: ambulatory Limitations: no limitations History of Present Illness HPI Narrative: 63 yo female with hx of GERD and gastritis, HTN here with c/o atraumatic R knee pain denies travel, redness, fevers, tick bites. did do some exercises at a center so she is not sure if that was the cause. she states this has not happe rajwinder before. She states it hurts to move and feels swollen behind the knee Complaint: joint swelling and joint pain Onset (ago): day(s) (1) Pain Consistency: constant Location: right and knee Quality: aching, dull and constant Radiation: none Relieving factors: immobilization Exacerbating factors: range of motion, weight bearing and walking Associated symptoms: denies other symptoms Context: other (possible exercises) Related Data Home Medications Medication Instructions Recorded Confirmed fluoxetine 20 mg capsule (Prozac) 2 cap PO QAM 06/10/21 06/10/21 gabapentin 100 mg capsule 1 cap PO BEDTIME 06/10/21 06/10/21 prazosin 2 mg capsule 2 cap PO BEDTIME 06/10/21 06/10/21 bupropion HCl 150 mg 24 hr tablet, 150 mg PO QAM 05/23/22 extended release levothyroxine 75 mcg tablet 75 mcg PO QAM 05/23/22 sertraline 100 mg tablet 150 mg PO QAM 05/23/22 albuterol sulfate 90 mcg/actuation 2 puff inhalation Q4-6H PRN 03/24/23 aerosol inhaler (Ventolin HFA) atenolol 25 mg tablet 25 mg PO QAM 03/24/23 fluticasone propionate 220 1 puff inhalation BID 03/24/23 mcg/actuation HFA aerosol inhaler (Flovent HFA) fluticasone propionate 50 2 spray intranasal DAILY 03/24/23 mcg/actuation nasal spray,suspension lisinopril 5 mg tablet 5 mg PO QAM 03/24/23 loratadine 10 mg tablet 10 mg PO QAM PRN allergies 03/24/23 Previous Rx's Medication Instructions Recorded hydrocortisone 2.5 % topical cream 1 appl [place] BID hemorrhoids #30 grams 05/23/22 with perineal applicator (Proctosol HC) acetaminophen 500 mg tablet 1,000 mg PO Q6H PRN Pain or fever 08/15/22 (Tylenol Extra Strength) #20 tabs sennosides 8.6 mg capsule (senna) 17.2 mg PO BEDTIME constipation 30 10/30/22 days #60 caps dicyclomine 20 mg tablet 20 mg PO TID #90 tabs 12/24/22 linaclotide 72 mcg capsule 72 mcg PO .q2pm #30 caps 12/24/22 (Linzess) metoclopramide HCl 5 mg tablet 5 mg PO .TIDAC #90 tabs 12/24/22 (Reglan) simethicone 180 mg capsule 180 mg PO QID 30 days #120 caps 12/24/22 aluminum-mag hydroxide-simethicone 5 ml PO 5XD PRN dyspepsia #355 mL 04/16/23 200 mg-200 mg-20 mg/5 mL oral susp (Maalox Advanced) ketorolac 10 mg tablet 10 mg PO TID PRN pain 5 days #15 04/16/23 tabs pantoprazole 40 mg tablet,delayed 40 mg PO BID #60 tabs 07/09/23 release ondansetron 4 mg disintegrating 4 mg PO Q8H PRN nausea and 07/17/23 tablet vomiting #20 tabs diclofenac sodium 3 % topical gel 1 appl topical BID PRN pain 5 days 07/24/23 #100 grams Allergies Allergy/AdvReac Type Severity Reaction Status Date / Time No Known Allergies Allergy Verified 07/21/23 12:28 [No Known Allergies*] Review of Systems Review of Systems: Constitutional : No Fever, No Chills Cardiovascular : No Chest Pain, No SOB Respiratory : No Cough, No Dyspnea Gastrointestinal : No Nausea, No Vomiting, No Diarrhea, No abdominal Pain Genitourinary : No Dysuria, No Hematuria Musculoskeletal : positive joint pain, No Myalgias, pos Joint Swelling Skin : No Skin lacerations, No rash Neuro : No Weakness, No Numbness, No Loss of Consciousness, No Dizziness, No Headache Psych : No Anxiety/Panic, No Depression All other systems reviewed and are negative PMFSH Past Medical History Attestation statement: The following information was validated with the patient. Source: old records reviewed Medical History Bacterial vaginosis Diabetes HPV in female Hypertension LLQ abdominal pain Surgical History History of esophagogastroduodenoscopy (EGD) Hx of colonoscopy Family History Family History Father Family history of prostate problems Colon cancer Mother Tumor Social History Social History Household Members: None Alcohol intake: current Alcohol intake frequency: a few times a month Patient Tobacco Use Status: Current someday Tobacco user Cigarettes Per Day: 2 Advance Directives: No Current occupational status: disabled Physical Exam Vital Signs: Vital Signs: Last Vital Signs Temp 97.9 F 07/24/23 06:49 Pulse 51 07/24/23 08:48 Resp 20 07/24/23 08:48 BP 142/81 H 07/24/23 08:48 Pulse Ox 97 07/24/23 08:48 O2 Del Method Room Air 07/24/23 08:48 BMI result Body Mass Index 34.5 Appearance: Alert. Oriented X3. No acute distress. Eyes: Pupils equal, round and reactive to light. ENT: Pharynx normal. Neck: Normal inspection. Neck supple. CVS: Normal heart rate and rhythm. Pulses normal. Respiratory: No respiratory distress. Breath sounds normal. Abdomen: Soft and nontender. Skin: Skin warm and dry. Normal skin color. Normal skin turgor. Extremities: No lower extremity edema. R knee mild joint effusion can range knee but with pain no warmth no erythema distal NV intact, quad tendon is intact Neuro: Oriented X 3. No motor deficit. No sensory deficit. Medical Decision Making Medical Decision Making MDM Narrative: 63 yo female with hx of GERD and gastritis, HTN here with R knee pain without signs of infection or suggestion of septic joint she is NV intact. She denies fevers or tick bites. I suspect overuse or arthritis with small effusion. Will obtain xray and US to rule out DVT pain control and hernan wrap will refer to PCP/ortho. She is not toxic and able to ambulate. Differential Diagnosis Differential Diagnoses: The differential diagnosis associated with the presentation includes arthritis, effusion, DVT Admission/Observation Consideration of admission/observation: Escalation of care including admission/observation considered can ambulate pain is controlled can be managed as outpatient Lab Data MDM Lab Attestation statement: I reviewed the patient's lab results. 07/24/23 07:23 07/24/23 07:23 Labs: Lab Results 07/24/23 07/24/23 Range/Units 07: 07:23 WBC 9.4 (4.8-10.8) X10*3/uL RBC 4.39 (4.20-5.50) X10*6/uL Hgb 13.1 (12.0-16.0) g/dl Hct 40.4 (37.0-47.0) % MCV 92.0 (80.0-98.0) fL MCH 29.8 (27.0-33.0) pg MCHC 32.4 (31.0-35.0) g/dl RDW 15.2 (11.0-16.0) % Plt Count 317 (160-400) X10*3/uL MPV 10.8 (9.4-12.3) fL Immature Gran % (Auto) 0.5 H (0.0-0.4) % Neut % (Auto) 58.6 (45-73) % Lymph % (Auto) 31.3 (20-40) % [place] % (Auto) 6.3 (2-11) % Eos % (Auto) 2.8 (0-4) % Baso % (Auto) 0.5 (0-2) % Lymph # (Auto) 3.0 (1.2-4.9) X10*3/uL [place] # (Auto) 0.6 (0.1-1.2) X10*3/uL Eos # (Auto) 0.3 (0.0-0.4) X10*3/uL Baso # (Auto) 0.1 (0.0-0.2) X10*3/uL Abs Immat Gran (auto) 0.05 H (0.00-0.03) X10*3/uL Absolute Neuts (auto) 5.5 (2.0-8.3) x10*3/uL Absolute Nucleated RBC 0.000 (0.0-0.012) X10*3/uL Nucleated RBC % (auto) 0.0 (0.0-0.2) /100WBC Sodium Cancelled Potassium Cancelled Chloride Cancelled Carbon Dioxide Cancelled Anion Gap Cancelled BUN Cancelled Creatinine Cancelled Estim Creat Clear Calc Cancelled Estimated GFR Cancelled Random Glucose Cancelled Calcium Cancelled Total Bilirubin Cancelled AST Cancelled ALT Cancelled Alkaline Phosphatase Cancelled Total Protein Cancelled Albumin Cancelled Independent Interpretation I performed an independent interpretation of an: Plain X-Ray (no fracture) and Ultrasound (no DVT) Radiology Impression Discussion of test interpretation with radiology: I have reviewed the radiologist's reading. External Record Review External record reviewed: Inpatient record Prescription Management I considered prescription management with: Pain Medication (topical diclofenac gel) Discharge Plan Discharge Clinical Impression: Effusion of knee Patient Disposition: Home, Self-Care Instructions: Swollen Knee Joint (ED), R.I.C.E. Treatment (ED) Additional Instructions: wear hernan wrap for 5 days. use tylenol or motrin for pain. apply pain gel as well. no strenuous walking, exercise while in pain. call your doctor navdeep. you can schedule orthopedics appointment as well. return for fevers, redness, worsening swelling or pain. follow the RICE treatment instructions for 3 days. Use Hernan Wrap nancy 5 d?as. use tylenol o motrin para el dolor. aplique gel para el dolor tambi?n. no caminar extenuantemente, hacer ejercicio si siente dolor. Llame a cordova m?dico el marybeth. Tambi?n puede programar jordan luis enrique con ortopedia. Regrese si tiene fiebre, enrojecimiento, empeoramiento de la hinchaz?n o dolor. Siga las instrucciones del tratamiento RICE nancy 3 d?as. No hay co?gulos de malini en [place] empeoramiento de la artritis en la radiograf?a de la rodilla Prescriptions: New diclofenac sodium 3 % gel 1 appl topical BID PRN (Reason: pain) 5 Days Qty: 100 0RF Rx Instructions: on knee joint No Action senna 8.6 mg capsule 17.2 mg PO BEDTIME 30 Days Qty: 60 6RF pantoprazole 40 mg tablet,delayed release (DR/EC) 40 mg PO BID Qty: 60 6RF gabapentin 100 mg capsule 1 cap PO BEDTIME fluoxetine [Prozac] 20 mg capsule 2 cap PO QAM prazosin 2 mg capsule 2 cap PO BEDTIME acetaminophen [Tylenol Extra Strength] 500 mg tablet 1,000 mg PO Q6H PRN (Reason: Pain or fever) Qty: 20 0RF ondansetron 4 mg tablet,disintegrating 4 mg PO Q8H PRN (Reason: nausea and vomiting) Qty: 20 0RF ketorolac 10 mg tablet 10 mg PO TID PRN (Reason: pain) 5 Days Qty: 15 0RF alum-mag hydroxide-simeth [Maalox Advanced] 200-200-20 mg/5 mL suspension 5 ml PO 5XD PRN (Reason: dyspepsia) Qty: 355 0RF Rx Instructions: administer between meals and at bedtime loratadine 10 mg tablet 10 mg PO QAM PRN (Reason: allergies) fluticasone propionate [Flovent HFA] 220 mcg/actuation HFA aerosol inhaler 1 puff inhalation BID atenolol 25 mg tablet 25 mg PO QAM lisinopril 5 mg tablet 5 mg PO QAM fluticasone propionate 50 mcg/actuation spray,suspension 2 spray intranasal DAILY albuterol sulfate [Ventolin HFA] 90 mcg/actuation HFA aerosol inhaler 2 puff inhalation Q4-6H PRN bupropion HCl 150 mg tablet extended release 24 hr 150 mg PO QAM levothyroxine 75 mcg tablet 75 mcg PO QAM sertraline 100 mg tablet 150 mg PO QAM hydrocortisone [Proctosol HC] 2.5 % cream with perineal applicator 1 appl [place] BID Qty: 30 6RF simethicone 180 mg capsule 180 mg PO QID 30 Days Qty: 120 6RF Rx Instructions: after meals Linzess 72 mcg capsule 72 mcg PO .q2pm Qty: 30 6RF metoclopramide HCl [Reglan] 5 mg tablet 5 mg PO .TIDAC Qty: 90 6RF Rx Instructions: Provider aware of possible interactions with sertraline and antidepressant, monitoring dicyclomine 20 mg tablet 20 mg PO TID Qty: 90 6RF Referrals: Juan Ramon Carranza PA-C [Phys[facility] [employer] [facility]] - (orthopedics) Print Language: Telugu
[2023-07-24 07:26] LABS: MANUAL DIFF FLAG NO
[2023-07-24 07:28] LABS: Basophils Absolute Auto 0.1 X10*3/uL (0.0-0.2); Basophils Percent Auto 0.5 % (0-2); Eosinophils Absolute Auto 0.3 X10*3/uL (0.0-0.4); Eosinophils Percent Auto 2.8 % (0-4); Hematocrit 40.4 % (37.0-47.0); Hemoglobin 13.1 g/dl (12.0-16.0); Imm Gran Abs Auto 0.05 X10*3/uL (0.00-0.03); Imm Gran Pct Auto 0.5 % (0.0-0.4); Lymphocytes Percent Auto 31.3 % (20-40); Mean Corpuscular HGB Conc 32.4 g/dl (31.0-35.0); Mean Corpuscular Hemoglobin 29.8 pg (27.0-33.0); Mean Platelet Volume 10.8 fL (9.4-12.3); Monocytes Absolute Auto 0.6 X10*3/uL (0.1-1.2); Monocytes Percent Auto 6.3 % (2-11); Neutrophils Absolute Auto 5.5 x10*3/uL (2.0-8.3); Neutrophils Percent Auto 58.6 % (45-73); Platelet Count 317 X10*3/uL (160-400); Red Blood Count 4.39 X10*6/uL (4.20-5.50); Red Cell Distribution Width 15.2 % (11.0-16.0); White Blood Count 9.4 X10*3/uL (4.8-10.8)
[2023-07-24 08:48] VITALS: BP 142/81; PULSE 51; RESP 20; O2SAT 97
--- NOTE | 2023-07-24 08:53 | PC.NURSE ---
Called ultrasound for estimate time for pt to go per ultra sound someone will be over shortly .
--- NOTE | 2023-07-24 08:56 | PC.NURSE ---
Ultrasound at bedside to complete as ordered.
== END 2023-07-24 09:58 | disposition home or self-care (01) ==
PROVIDERS: Emergency Provider Emergency Medicine; PCP Family Medicine
DX: M25.461 Effusion, right knee (principal); R60.0 Localized edema; Z79.899 Other long term (current) drug therapy
CPT/HCPCS: 36415; 73564; 85025; 93971; 99283; 99284

== ENCOUNTER → 2023-08-21 07:18 | Outpatient (REF) | payer MEDICAID, SELFPAY ==
--- NOTE | ~2023-08-21 | NM_ITS ---
Examination: Nuclear medicine hepatobiliary imaging with pharmacy. Clinical indications: Elevation of liver transaminase levels. Epigastric pain, nausea and vomiting. COMPARISON: CT abdomen pelvis 07/17/2023. TECHNIQUE: Following intravenous administration of 5 mCi of 90 9M technetium mebrofenin, imaging over the right upper quadrant was obtained up to 60 minutes. At 60 minutes 1.7 mcg CCK was given with IV pump and imaging was obtained over next 30 minutes. FINDINGS: There is normal hepatic uptake without any focal defect. CBD is visualized by 60 minutes and small bowel visualized by 18 minutes. Gallbladder is visualized by 26 minutes. Post-CCK the gallbladder ejection fraction at 20 minutes is 71% and at 30 minutes is 89%. NM/NM hepatobiliary w pharm IMPRESSION: Normal hepatic uptake. Patent CBD and cystic duct. Normal gallbladder ejection fraction of 89% at 30 minutes.
[2023-08-21 08:42] LABS: Alanine Aminotransferase 11 U/L (0-31); Albumin Level 3.8 g/dL (3.5-5.0); Alkaline Phosphatase 82 U/L (39-117); Aspartate Amino Transferase 13 U/L (5-31); Bilirubin Direct < 0.2 mg/dL (0.0-0.5); Bilirubin Total 0.2 mg/dL (0.0-1.0); Total Protein 6.9 g/dL (6.5-8.0)
[2023-08-21 10:41] LABS: Creatinine Urine 152.98 mg/dL; Microalbum/Creatinine Ratio Ur 4.5 ug/mg cr (<30)
== END ==
LOC: HO.NUCMED 07:18
PROVIDERS: Absent Provider Family Medicine; PCP Family Medicine; Visit Provider Nurse Practitioner
DX: R74.01 Elevation of levels of liver transaminase levels (principal); R10.13 Epigastric pain; E11.9 Type 2 diabetes mellitus without complications
CPT/HCPCS: 36415; 78227; 80076; 82043; 82570; A9537; J2805

== ENCOUNTER 2023-08-26 15:23 | Outpatient (AMB) | payer MEDICAID, SELFPAY ==
[2023-08-26 15:28] VITALS: BP 121/67; PULSE 58; BMI 33.9
--- NOTE | 2023-08-26 15:28 | MHC.OFFVIS ---
Intake Vital Signs 08/26/23 15:28 Height 5 ft 2 in Weight 185 lb 3.013 oz BMI 33.9 BP 121/67 Blood Pressure Location Rt brachial Position Sitting Pulse 58 Intake Visit Reasons: 4 week follow up Intake Note: Sridevi presents in office today in follow up of hepatobiliary scan and labs. CC: She c/o heartburn and epigastric pain, constipation, and some blood spots when she has a BM. Chief Controller Required: Yes Chief Controller Language: [place] Accompanied by: Self / Same As Patient Allergies No Known Allergies [No Known Allergies*] Allergy (Verified 07/21/23 12:28) HPI 4 week follow up HPI Details Assessment & Plan (1) Epigastric pain: Code(s): R10.13 - Epigastric pain Plan: [place] Caitie Live No change in her epi pain, but she did present to the ER for a pain that was more severe and radiated around to her back. She says the pain at that level has not returned. She was told to see a surgeon by the ER doctor to check the GB. US and CT no stones, HIDA scan best next step. Will repeat liver panel etc. She continues on bid protonix, simethicone reglan, bentyl, Linzess and senna. CT showed GASTROINTESTINAL TRACT: Relatively severe diverticulosis throughout the colon. No acute inflammatory changes. Segments of colonic spasming noted. No small bowel pathology. Appendix normal.? ROV 4 weeks. (2) GERD (gastroesophageal reflux disease): Code(s): K21.9 - Gastro-esophageal reflux disease without esophagitis (3) Chronic idiopathic constipation: Code(s): K59.04 - Chronic idiopathic constipation (4) Delayed gastric emptying: Code(s): K30 - Functional dyspepsia (5) Abdominal bloating: Code(s): R14.0 - Abdominal distension (gaseous) (6) Transaminitis: Code(s): R74.01 - Elevation of levels of liver transaminase levels Orders: Orders Lipase 07/21/23 R10.13 - Epigastri c pain, R74.01 - E levation of levels of liver transami nase levels Amylase 07/21/23 R10.13 - Epigastri c pain, R74.01 - E levation of levels of liver transami nase levels Gamma Glutamyl Tra nspeptidase 07/21/23 R10.13 - Epigastri c pain, R74.01 - E levation of levels of liver transami nase levels Liver Panel 07/21/23 R10.13 - Epigastri c pain, R74.01 - E levation of levels of liver transami nase levels Bilirubin Direct 07/22/23 R10.13 - Epigastri c pain, R74.01 - E levation of levels of liver transami nase levels Mitochondrial Anti body 07/21/23 R10.13 - Epigastri c pain, R74.01 - E levation of levels of liver transami nase levels Smooth Muscle Anti body 07/21/23 R10.13 - Epigastri c pain, R74.01 - E levation of levels of liver transami nase levels NM hepatobiliary w pharm 07/21/23 R74.01 - Elevation of levels of live r transaminase lev els, R10.13 - Epig astric pain LABS: Laboratory Tests 07/17/23 07/21/23 07/21/23 18:54 13:06 13:06 Estimated GFR > 60 Total Bilirubin Direct Bilirubin GGT 530 H AST ALT Alkaline Phosphata se Amylase 48 Lipase 45 Anti-Mitochondrial Ab NEGATIVE Anti-Smooth Muscle Ab <20 08/21/23 07:38 Estimated GFR Total Bilirubin 0.2 Direct Bilirubin < 0.2 GGT AST 13 ALT 11 Alkaline Phosphata se 82 Amylase Lipase Anti-Mitochondrial Ab Anti-Smooth Muscle Ab HIDA SCAN 08/21/23 IMPRESSION: Normal hepatic uptake. Patent CBD and cystic duct. Normal gallbladder ejection fraction of 89% at 30 minutes. TODAY'S VISIT [place] #Sophie Chen The pain in her upper stomach continues. So far we have not found any explanation for her pain with regards to her gallbladder she does have a history of erosive gastritis from 2014 when we did her last EGD/colonoscopy. With this in mind and since she is also due for repeat colonoscopy I suggest that we do an EGD/colonoscopy in see what is going on her stomach. So far she has had a negative CT scan and ultrasound along with this negative HIDA scan. She continues on bid protonix, simethicone reglan, bentyl, Linzess and senna. [facility] Medical History (Updated 08/26/23 @ 16:45 by LUIS ENRIQUE Cat) Gastritis Tubular adenoma of colon Bacterial vaginosis Hypertension LLQ abdominal pain 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 Surgical History History of esophagogastroduodenoscopy (EGD) Hx of colonoscopy Family History Father Family history of prostate problems Colon cancer Mother Tumor Social History Household Members: None Alcohol intake: current Alcohol intake frequency: a few times a month Patient Tobacco Use Status: Current someday Tobacco user Cigarettes Per Day: 2 Current occupational status: disabled Female Reproductive History Menstrual Age of Menarche: 13 Review of Systems Const Denies fatigue, Denies fever(s), Denies night sweats, Denies poor appetite and Denies weight loss ENT Reports Normal hearing present, Denies dental pain, Denies dysphagia, Denies hearing loss, Denies mouth pain, Denies odynophagia, Denies throat swelling, Denies tongue swelling and Reports other (Dentition adequate) Card Reports no additional complaints Resp Reports no additional complaints GI Reports abdominal pain, Denies melena, Denies bloating, Denies hematochezia, Reports constipation, Denies GI cramping, Denies dysphagia, Denies excessive flatus, Denies early satiety, Reports heartburn, Denies diarrhea, Denies nausea, Denies odynophagia, Denies vomiting and Denies hematemesis Skin/Breast Denies pruritus, Denies lesions, Denies rash and Denies jaundice Neuro Reports Normal hearing present and Denies Abnormal speech present Endo Denies fatigue Aller/Immun Denies throat swelling and Denies tongue swelling Physical Exam Vital Signs: Last Vital Signs Pulse 58 08/26/23 15:28 BP 121/67 08/26/23 15:28 BMI result Body Mass Index 33.9 Const General: cooperative, no acute distress, well developed and well groomed Nutritional Appearance: well nourished and obese Orientation/consciousness: oriented to person, oriented to place and oriented to time Limitations: No language barrier HEENT Head: Yes normocephalic and Yes atraumatic Eyes General: appearance normal, both eyes and all related structures Pupils: Equal, round and reactive pupils present Neck Neck: Yes normal visual inspection and Yes no lymphadenopathy Thyroid: Thyroid normal Resp Effort & Inspection: normal respiratory effort and able to speak in complete sentences Auscultation: clear to auscultation bilaterally Cardio Rate: regular rate Rhythm: regular rhythm Heart sounds: Normal, physiologic split S2 sound present Peripheral pulses: radial pulses present and posterior tibial pulses present GI Inspection: No distended, Yes Abdominal panniculus present and Yes obesity Palpation (GI): Soft to palpation, Tenderness to palpation present (GI) in the epigastrum, no guarding, not rigid and No hepatosplenomegaly present Percussion: Yes normal to percussion Auscultation: normal bowel sounds Rectal Exam - Female: deferred Skin General skin exam: no rashes or lesions noted, turgor normal, skin not dry, no jaundice, No spider nevi and no striae Rashes: no rashes Nails: normal Neuro General: oriented to person, oriented to place and oriented to time Cranial nerves: Yes Equal, round and reactive pupils present and Yes Normal hearing present Speech: No Abnormal speech present Extrem General: Yes normal to inspection, No clubbing, No cyanosis and No edema Psych Appearance: grossly normal and well kempt Mental Status: mental status grossly normal Speech and movement: Normal speech and movement present Affect: normal affect Attitude: cooperative Thought process: Normal thought process present and not confabulating Thought content: Normal thought content present Insight: Limited insight present (Psych) Judgement: Limited judgement present (Psych) Assessment & Plan Assessment & Plan (1) Epigastric pain: Code(s): R10.13 - Epigastric pain (2) GERD (gastroesophageal reflux disease): Code(s): K21.9 - Gastro-esophageal reflux disease without esophagitis (3) Chronic idiopathic constipation: Code(s): K59.04 - Chronic idiopathic constipation (4) Abdominal bloating: Code(s): R14.0 - Abdominal distension (gaseous) (5) Tubular adenoma of colon: Comment: 2012 scope, 2019 neg repeat 5 years Code(s): D12.6 - Benign neoplasm of colon, unspecified (6) Erosive gastritis: Code(s): K29.60 - Other gastritis without bleeding Orders: Orders EGD/[place] Combo - GI Use Only Today D12.6 - Benign neoplasm of colon, unspecified Medications: New peg 3350-electrolytes 236-22.74-6.74 -5.86 gram (Golytely) until fecal effluent is clear; do not exceed a total volume of 2,000 mL 240 mL PO Q10M 1 day 4,000 mL 0RF Z12.11 - Encounter for screening for malignant neoplasm of colon bisacodyl (Dulcolax (bisacodyl)) 10 mg (2 x 5 mg) PO BEDTIME 2 days 4 tabs 0RF Refilled linaclotide (Linzess) 72 mcg PO .q2pm 30 caps 6RF K59.04 - Chronic idiopathic constipation metoclopramide HCl (Reglan) Provider aware of possible interactions with sertraline and antidepressant, monitoring 5 mg PO .TIDAC 90 tabs 6RF K30 - Functional dyspepsia pantoprazole 40 mg PO BID 60 tabs 6RF K21.9 - Gastro-esophageal reflux disease without esophagitis, K29.70 - Gastritis, unspecified, without bleeding simethicone after meals 180 mg PO QID 30 days 120 caps 6RF Coding Level of Care Code Est Pt Level 4 (67895) Diagnoses Epigastric pain R10.13 GERD (gastroesophageal reflux disease) K21.9 Chronic idiopathic constipation K59.04 Abdominal bloating R14.0 Tubular adenoma of colon D12.6 Erosive gastritis K29.60
== END 2023-08-26 16:03 | disposition home or self-care (01) ==
PROVIDERS: PCP Family Medicine; Visit Provider Nurse Practitioner
DX: R10.13 Epigastric pain (principal); K21.9 Gastro-esophageal reflux disease without esophagitis; K59.04 Chronic idiopathic constipation; R14.0 Abdominal distension (gaseous); D12.6 Benign neoplasm of colon, unspecified; K29.60 Other gastritis without bleeding
CPT/HCPCS: 99214

== ENCOUNTER → 2023-08-26 15:23 | Outpatient (BNVA) | payer MEDICAID, SELFPAY | PROVIDERS: PCP Family Medicine; Visit Provider Nurse Practitioner | DX: R10.13 Epigastric pain (principal); K21.9 Gastro-esophageal reflux disease without esophagitis; K59.04 Chronic idiopathic constipation; R14.0 Abdominal distension (gaseous); K29.60 Other gastritis without bleeding; Z86.010 Personal history of colon polyps | CPT/HCPCS: 99212 ==

== ENCOUNTER 2023-09-16 19:40 | Outpatient (REF) | payer MEDICAID, SELFPAY ==
[2023-09-16 20:34] LABS: Influenza A PCR NEGATIVE (Negative); Influenza B PCR NEGATIVE (Negative); Resp Syncy Virus RNA Qual PCR NEGATIVE (Negative); SARS COV2 PCR INHOUSE NEGATIVE (Negative)
== END 2023-09-16 19:41 | disposition home or self-care (01) ==
LOC: HO.HHCLNP 19:40
PROVIDERS: Visit Provider Emergency Medicine
DX: J06.9 Acute upper respiratory infection, unspecified (principal); Z11.52 Encounter for screening for COVID-19
CPT/HCPCS: 0241U

== ENCOUNTER 2023-09-17 06:46 | Emergency (ER) | payer MEDICAID, SELFPAY ==
--- NOTE | ~2023-09-17 | XR_ITS ---
EXAMINATION: XR CHEST CLINICAL INFORMATION: Cough. COMPARISON: 10/22/2022. TECHNIQUE: Frontal view of the chest was obtained. FINDINGS: The cardiomediastinal silhouette is within normal limits and stable. There appears to be minimal atelectasis or scarring at the left lung base. The lungs are otherwise clear. There are no significant pleural effusions. XR/XR chest 1V IMPRESSION: There appears to be minimal atelectasis or scarring at the left lung base. No other significant abnormality seen.
[2023-09-17 06:50] VITALS: BP 130/80; PULSE 52; RESP 20; TEMP 36.1; O2SAT 97; BMI 33.2
--- NOTE | 2023-09-17 07:11 | ED.GENADULT ---
HPI - General Adult General Chief complaint: General Medical Stated complaint: cough, lower back pain Time Seen by Provider: 09/17/23 07:11 Source: patient Mode of arrival: ambulatory Limitations: no limitations History of Present Illness HPI narrative: This is a 63 year old female with PMHX hypertension, diet-controlled diabetes, GERD, gastritis, history of diverticulitis presnting w/ fatigue, malise, myalgias, lower back pain, headache, dry cough X 2 days not improving. Headache feels like typical, no dizziness or vision changes. Denies sick contacts. Reports chills no fevers. Reports chest discomfort only w/ cough not when she is not coughing. Denies vomiting, diarrhea, shortess of breath, hematemesis, changes in urinary habits. Related Data Home Medications Medication Instructions Recorded Confirmed fluoxetine 20 mg capsule (Prozac) 2 cap PO QAM 06/10/21 06/10/21 gabapentin 100 mg capsule 1 cap PO BEDTIME 06/10/21 06/10/21 prazosin 2 mg capsule 2 cap PO BEDTIME 06/10/21 06/10/21 levothyroxine 75 mcg tablet 75 mcg PO QAM 05/23/22 sertraline 100 mg tablet 150 mg PO QAM 05/23/22 albuterol sulfate 90 mcg/actuation 2 puff inhalation Q4-6H PRN 03/24/23 aerosol inhaler (Ventolin HFA) atenolol 25 mg tablet 25 mg PO QAM 03/24/23 fluticasone propionate 220 1 puff inhalation BID 03/24/23 mcg/actuation HFA aerosol inhaler (Flovent HFA) fluticasone propionate 50 2 spray intranasal DAILY 03/24/23 mcg/actuation nasal spray,suspension lisinopril 5 mg tablet 5 mg PO QAM 03/24/23 loratadine 10 mg tablet 10 mg PO QAM PRN allergies 03/24/23 bupropion HCl 300 mg 24 hr tablet, 300 mg PO QAM 08/26/23 extended release Previous Rx's Medication Instructions Recorded hydrocortisone 2.5 % topical cream 1 appl FL BID hemorrhoids #30 grams 05/23/22 with perineal applicator (Proctosol HC) acetaminophen 500 mg tablet 1,000 mg (2 x 500 mg) PO Q6H PRN 08/15/22 (Tylenol Extra Strength) Pain or fever #20 tabs sennosides 8.6 mg capsule (senna) 17.2 mg (2 x 8.6 mg) PO BEDTIME 10/30/22 constipation 30 days #60 caps aluminum-mag hydroxide-simethicone 5 ml PO 5XD PRN dyspepsia #355 mL 04/16/23 200 mg-200 mg-20 mg/5 mL oral susp (Maalox Advanced) ketorolac 10 mg tablet 10 mg PO TID PRN pain 5 days #15 04/16/23 tabs ondansetron 4 mg disintegrating 4 mg PO Q8H PRN nausea and 07/17/23 tablet vomiting #20 tabs diclofenac sodium 3 % topical gel 1 appl topical BID PRN pain 5 days 07/24/23 #100 grams bisacodyl 5 mg tablet,delayed 10 mg (2 x 5 mg) PO BEDTIME 2 days 08/26/23 release (Dulcolax (bisacodyl)) #4 tabs linaclotide 72 mcg capsule 72 mcg PO .q2pm #30 caps 08/26/23 (Linzess) metoclopramide HCl 5 mg tablet 5 mg PO .TIDAC #90 tabs 08/26/23 (Reglan) pantoprazole 40 mg tablet,delayed 40 mg PO BID #60 tabs 08/26/23 release peg 3350-electrolytes 236 240 ml PO Q10M 1 day #4,000 mL 08/26/23 gram-22.74 gram-6.74 gram-5.86 gram solution (Golytely) simethicone 180 mg capsule 180 mg PO QID 30 days #120 caps 08/26/23 dicyclomine 20 mg tablet 20 mg PO TID #90 tabs 09/01/23 albuterol sulfate 90 mcg/actuation 2 inh inhalation Q4-6H PRN 09/17/23 breath activated powder inhaler shortness of breath or wheezing #1 ea doxycycline hyclate 100 mg capsule 100 mg PO BID 10 days #20 caps 09/17/23 prednisone 20 mg tablet 40 mg (2 x 20 mg) PO DAILY 5 days 09/17/23 #10 tabs Allergies Allergy/AdvReac Type Severity Reaction Status Date / Time No Known Allergies Allergy Verified 07/21/23 12:28 [No Known Allergies*] Review of Systems Review of Systems: Constitutional : No Weight loss, No Fever, No Chills, + Fatigue, + Malaise ENT/Mouth : No sore throat, No Rhinorrhea Eyes: No Eye Pain, No Swelling, No Redness Cardiovascular : No Chest Pain, No SOB, No Dyspnea on Exertion, No Orthopnea, No Edema, No Palpitations Respiratory : + Cough, No Sputum, No Wheezing Gastrointestinal : No Nausea, No Vomiting, No Diarrhea, No Constipation, No abdominal Pain, No Hematochezia, No Melena Genitourinary : No Dysuria, No Urinary Frequency, No Hematuria, Musculoskeletal : No joint pain, No Myalgias, No Joint Swelling, + back pain Skin : No Skin Lesions, No rash Neuro : No Weakness, No Numbness, No Dizziness, No Headache Psych : No Anxiety/Panic, No Depression All other systems reviewed and are negative Yes all other systems are reviewed and are negative [facility] Past Medical History Source: old records reviewed and nursing notes reviewed Medical History (Updated 09/17/23 @ 08:42 by ENDY Fox) Gastritis Tubular adenoma of colon Bacterial vaginosis Hypertension LLQ abdominal pain 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 Surgical History History of esophagogastroduodenoscopy (EGD) Hx of colonoscopy Family History Family History Father Family history of prostate problems Colon cancer Mother Tumor Social History Social History Household Members: None Alcohol intake: current Alcohol intake frequency: a few times a month Patient Tobacco Use Status: Current someday Tobacco user Cigarettes Per Day: 2 Advance Directives: No Advance Directives Information Provided: Yes Current occupational status: disabled Physical Exam ED Vital Signs: Vital Signs - 24 hr 09/17/23 06:50 09/17/23 07:21 09/17/23 07:39 Temperature 97 F 98.5 F Pulse Rate 52 49 L 48 L Respiratory Rate 20 14 16 Blood Pressure 130/80 127/65 Pulse Oximetry 97 96 Oxygen Delivery Method Room Air Room Air BMI result Body Mass Index 33.2 vss Appearance: Alert.? Oriented X3.? No acute distress.? Head: Normocephalic, atraumatic, no step-offs or deformities Eyes: Pupils equal, round and reactive to light.? CVS: Normal heart rate and rhythm.? Pulses normal.? Respiratory: No respiratory distress.? Breath sounds w/ wheezing to LLL.? Abdomen: Soft and nontender.? Skin: Skin warm and dry.? Normal skin color.? Normal skin turgor.? Extremities: No lower extremity edema.? No calf ttp. 5/5 strength to bilateral upper and lower extremities Back: No midline tenderness, no C-spine tenderness, full range of motion, no CVA tenderness bilaterally Neuro: Oriented X 3.? No motor deficit.? No sensory deficit. CN 2-12 intact. Ambulating w/ steady gait normal coordination Course Reevaluation(s) Reevaluation #1: CBC with no acute findings. Chemistry unremarkable. Troponin negative, EKG nonischemic unlikely ACS. Influenza and COVID negative. Chest x-ray appears to be minimal atelectasis or scarring the left lung base. Patient has had a cough and tested negative for viral test and has atelectasis to the left lung which could also be a small consolidation, will treat with doxycycline, prednisone and albuterol peer Educated patient on diagnosis and treatment plan, answered all question, patient verbalizes understanding. At this time patient will be discharged home, advised to return with new or worsening symptoms. Educated on worrisome signs and symptoms and when to return. At this time I feel comfortable discharge home. Patient is saturating 96-97% on room air. Time: 08:36 Medications Administered Discontinued Medications Generic Name Dose Route Start Last Admin Trade Name Jaye PRN Reason Stop Dose Admin Albuterol Sulfate 2 puff 09/17/23 07:21 09/17/23 07:36 Albuterol Sulfate 90 Mcg 8 Gm Inhaler INHALE 09/17/23 07:22 2 puff ONCE ONE Administration Ketorolac Tromethamine 30 mg 09/17/23 07:24 09/17/23 07:51 Ketorolac Tromethamine 15 Mg/Ml Vial IVPUSH 09/17/23 07:25 30 mg ONCE ONE Administration Medical Decision Making Medical Decision Making [facility] Narrative: 0714 63 year old female presents w/ cough, back pain, headache, fatigue, mailse X few days PE / wheezing to LLL Likely covid vs viral ilness vs muscle sprain or strain to lower back. Unlikley cauda equina, epidural abscess, cord compression. Unlikely acute respiatory distress, pna, pe, acs. Plan- lab, viral test, xray Differential Diagnosis Differential Diagnoses: The differential diagnosis associated with the presentation includes Likely covid vs viral ilness vs muscle sprain or strain to lower back. Unlikley cauda equina, epidural abscess, cord compression . Unlikely acute respiatory distress, pna, pe, acs. Admission/Observation Consideration of admission/observation: Escalation of care including admission/observation considered Lab Data [facility] Lab Attestation statement: I reviewed the patient's lab results. 09/17/23 07:30 09/17/23 07:30 Labs: Lab Results 09/17/23 Range/Units 07:30 WBC 7.4 (4.8-10.8) X10*3/uL RBC 4.41 (4.20-5.50) X10*6/uL Hgb 12.8 (12.0-16.0) g/dl Hct 39.7 (37.0-47.0) % MCV 90.0 (80.0-98.0) fL MCH 29.0 (27.0-33.0) pg MCHC 32.2 (31.0-35.0) g/dl RDW 14.2 (11.0-16.0) % Plt Count 239 (160-400) X10*3/uL MPV 10.9 (9.4-12.3) fL Immature Gran % (Auto) 0.3 (0.0-0.4) % Neut % (Auto) 66.7 (45-73) % Lymph % (Auto) 22.8 (20-40) % [place] % (Auto) 6.8 (2-11) % Eos % (Auto) 3.0 (0-4) % Baso % (Auto) 0.4 (0-2) % Lymph # (Auto) 1.7 (1.2-4.9) X10*3/uL [place] # (Auto) 0.5 (0.1-1.2) X10*3/uL Eos # (Auto) 0.2 (0.0-0.4) X10*3/uL Baso # (Auto) 0.0 (0.0-0.2) X10*3/uL Abs Immat Gran (auto) 0.02 (0.00-0.03) X10*3/uL Absolute Neuts (auto) 4.9 (2.0-8.3) x10*3/uL Absolute Nucleated RBC 0.000 (0.0-0.012) X10*3/uL Nucleated RBC % (auto) 0.0 (0.0-0.2) /100WBC Sodium 138 (135-145) mmol/L Potassium 4.2 (3.3-5.1) mmol/L Chloride 103 (96-108) mmol/L Carbon Dioxide 26 (22-29) mmol/L Anion Gap 13 (12-20) BUN 12 (9-16) mg/dL Creatinine 0.75 (0.5-1.4) mg/dL Estim Creat Clear Calc 78.3 Estimated GFR > 60 Random Glucose 185 H (60-115) mg/dL Calcium 9.2 (8.4-10.2) mg/dL Magnesium 1.8 (1.6-2.6) mg/dL Total Bilirubin 0.4 (0.0-1.0) mg/dL AST 14 (5-31) U/L ALT 13 (0-31) U/L Alkaline Phosphatase 81 (39-117) U/L Troponin I High Sens < 2.7 (<3.5-17.0) ng/L Total Protein 6.5 (6.5-8.0) g/dL Albumin 3.7 (3.5-5.0) g/dL COVID-19 ([facility]) Negative (Negative) COVID-19 Clin Com See Note Influenza Type A ([facility]) Negative (Negative) Influenza Type B ([facility]) Negative (Negative) Influenza A & B Note See Note Independent Interpretation I performed an independent interpretation of an: EKG (Ventricular rate of 51, FL normal, QRS normal, QT/QTC normal. EKG sinus bradycardia no ST elevations or inversions concerning for acute ischemia. Asymptomatic bradycardia no need for intervention) and Plain X-Ray (XR/XR chest 1V IMPRESSION: There appears to be minimal atelectasis or scarring at the left lung base. No other significant abnormality seen.) Radiology Impression Discussion of test interpretation with radiology: I have reviewed the radiologist's reading. External Record Review External record reviewed: Inpatient record, Office record, Outpatient record, Prior outpatient labs, Prior outpatient radiology, Primary care record and Outside ED record Critical Care Time Critical Care Time Critical Care Time: No Discharge Plan Discharge Clinical Impression: Bronchitis, Wheezing Patient Disposition: Home, Self-Care Instructions: Acute Bronchitis (ED) Additional Instructions: Take your medications as prescribed. If you were prescribed antibiotics today, it is important that you take your medication to their entirety, do not skip any doses, do not finish them early. Follow-up with your primary care provider this week. Return to the emergency department with new or worsening symptoms. Such as fevers, chills, chest pain, shortness of breath, nausea, vomiting, dizziness, headache, vision changes, lethargy In case of emergency call 911 Prescriptions: New doxycycline hyclate 100 mg capsule 100 mg PO BID 10 Days Qty: 20 0RF prednisone 20 mg tablet 40 mg PO DAILY 5 Days Qty: 10 0RF albuterol sulfate 90 mcg/actuation aerosol powdr breath activated 2 inh inhalation Q4-6H PRN (Reason: shortness of breath or wheezing) Qty: 1 0RF No Action senna 8.6 mg capsule 17.2 mg PO BEDTIME 30 Days Qty: 60 6RF dicyclomine 20 mg tablet 20 mg PO TID Qty: 90 6RF gabapentin 100 mg capsule 1 cap PO BEDTIME fluoxetine [Prozac] 20 mg capsule 2 cap PO QAM prazosin 2 mg capsule 2 cap PO BEDTIME acetaminophen [Tylenol Extra Strength] 500 mg tablet 1,000 mg PO Q6H PRN (Reason: Pain or fever) Qty: 20 0RF ondansetron 4 mg tablet,disintegrating 4 mg PO Q8H PRN (Reason: nausea and vomiting) Qty: 20 0RF ketorolac 10 mg tablet 10 mg PO TID PRN (Reason: pain) 5 Days Qty: 15 0RF alum-mag hydroxide-simeth [Maalox Advanced] 200-200-20 mg/5 mL suspension 5 ml PO 5XD PRN (Reason: dyspepsia) Qty: 355 0RF Rx Instructions: administer between meals and at bedtime diclofenac sodium 3 % gel 1 appl topical BID PRN (Reason: pain) 5 Days Qty: 100 0RF Rx Instructions: on knee joint loratadine 10 mg tablet 10 mg PO QAM PRN (Reason: allergies) fluticasone propionate [Flovent HFA] 220 mcg/actuation HFA aerosol inhaler 1 puff inhalation BID atenolol 25 mg tablet 25 mg PO QAM lisinopril 5 mg tablet 5 mg PO QAM fluticasone propionate 50 mcg/actuation spray,suspension 2 spray intranasal DAILY albuterol sulfate [Ventolin HFA] 90 mcg/actuation HFA aerosol inhaler 2 puff inhalation Q4-6H PRN levothyroxine 75 mcg tablet 75 mcg PO QAM sertraline 100 mg tablet 150 mg PO QAM hydrocortisone [Proctosol HC] 2.5 % cream with perineal applicator 1 appl FL BID Qty: 30 6RF bupropion HCl 300 mg tablet extended release 24 hr 300 mg PO QAM peg 3350-electrolytes [Golytely] 236-22.74-6.74 -5.86 gram recon soln 240 ml PO Q10M 1 Days Qty: 4000 0RF Rx Instructions: until fecal effluent is clear; do not exceed a total volume of 2,000 mL bisacodyl [Dulcolax (bisacodyl)] 5 mg tablet,delayed release (DR/EC) 10 mg PO BEDTIME 2 Days Qty: 4 0RF Linzess 72 mcg capsule 72 mcg PO .q2pm Qty: 30 6RF metoclopramide HCl [Reglan] 5 mg tablet 5 mg PO .TIDAC Qty: 90 6RF Rx Instructions: Provider aware of possible interactions with sertraline and antidepressant, monitoring pantoprazole 40 mg tablet,delayed release (DR/EC) 40 mg PO BID Qty: 60 6RF simethicone 180 mg capsule 180 mg PO QID 30 Days Qty: 120 6RF Rx Instructions: after meals Referrals: Libra Barone MD [Primary Care Provider] - 2 days Stand Alone Forms: Work/School Release
[2023-09-17 07:21] VITALS: BP 127/65; PULSE 49; RESP 14; TEMP 36.9; O2SAT 96
--- NOTE | 2023-09-17 07:23 | ECG_ITS ---
Test Reason : chest pain Blood Pressure : / mmHG Vent. Rate : 051 BPM Atrial Rate : 051 BPM P-R Int : 142 ms QRS Dur : 072 ms QT Int : 444 ms P-R-T Axes : -01 018 032 degrees QTc Int : 409 ms Sinus bradycardia Otherwise normal ECG When compared with ECG of 17-JUL-2023 18:49, No significant change was found Referred By: Lucy Maldonado Electronically Signed By:DEMARCO BECKER MD
[2023-09-17 07:34] LABS: MANUAL DIFF FLAG NO
[2023-09-17] MEDS: Albuterol Sulfate 90 MCG 8 GM INHALER 2 PUFF INHALE (07:36)
[2023-09-17 07:39] VITALS: PULSE 48; RESP 16; O2SAT 98
[2023-09-17 07:40] LABS: Basophils Percent Auto 0.4 % (0-2); Eosinophils Absolute Auto 0.2 X10*3/uL (0.0-0.4); Hematocrit 39.7 % (37.0-47.0); Hemoglobin 12.8 g/dl (12.0-16.0); Imm Gran Abs Auto 0.02 X10*3/uL (0.00-0.03); Imm Gran Pct Auto 0.3 % (0.0-0.4); Lymphocytes Absolute Auto 1.7 X10*3/uL (1.2-4.9); Lymphocytes Percent Auto 22.8 % (20-40); Mean Corpuscular HGB Conc 32.2 g/dl (31.0-35.0); Mean Platelet Volume 10.9 fL (9.4-12.3); Monocytes Absolute Auto 0.5 X10*3/uL (0.1-1.2); Monocytes Percent Auto 6.8 % (2-11); Neutrophils Absolute Auto 4.9 x10*3/uL (2.0-8.3); Neutrophils Percent Auto 66.7 % (45-73); Platelet Count 239 X10*3/uL (160-400); Red Blood Count 4.41 X10*6/uL (4.20-5.50); Red Cell Distribution Width 14.2 % (11.0-16.0); White Blood Count 7.4 X10*3/uL (4.8-10.8)
[2023-09-17 07:48] LABS: Alanine Aminotransferase 13 U/L (0-31); Albumin Level 3.7 g/dL (3.5-5.0); Alkaline Phosphatase 81 U/L (39-117); Anion Gap 13 (12-20); Aspartate Amino Transferase 14 U/L (5-31); Bilirubin Total 0.4 mg/dL (0.0-1.0); Blood Urea Nitrogen 12 mg/dL (9-16); Calcium 9.2 mg/dL (8.4-10.2); Carbon Dioxide 26 mmol/L (22-29); Chloride 103 mmol/L (96-108); Creatinine Clr Calc Pharmacy 78.3; Estimated Glomerular Filt Rate > 60; Glucose Random 185 mg/dL (60-115); Magnesium 1.8 mg/dL (1.6-2.6); Potassium 4.2 mmol/L (3.3-5.1); Sodium 138 mmol/L (135-145); Total Protein 6.5 g/dL (6.5-8.0)
[2023-09-17 07:50] LABS: COVID-19 Test Negative (Negative); IDNOW Serial# BCCEAD1C
[2023-09-17 07:51] LABS: IDNOW Serial# 08D9AD1C; Influenza A Negative (Negative); Influenza B2 Negative (Negative)
[2023-09-17] MEDS: Ketorolac Tromethamine 15 MG/ML VIAL 30 MG IVPUSH (07:51)
[2023-09-17 07:56] LABS: Troponin-I High Sensitivity < 2.7 ng/L (<3.5-17.0)
--- NOTE | 2023-09-17 07:56 | PC.NURSE ---
20g iv inserted R upper outer arm. pain med given as ordered. pt placed on monitor, normal sinus. pt resting quietly, no apparent distress.
== END 2023-09-17 09:11 | disposition home or self-care (01) ==
PROVIDERS: Physician Assistant; Emergency Provider Emergency Medicine; PCP Family Medicine
DX: J40 Bronchitis, not specified as acute or chronic (principal); R05.9 Cough, unspecified; M54.50 Low back pain, unspecified; M79.10 Myalgia, unspecified site; R06.2 Wheezing; R51.9 Headache, unspecified; Z20.822 Contact with and (suspected) exposure to COVID-19; Z20.828 Contact with and (suspected) exposure to other viral communicable diseases; Z79.899 Other long term (current) drug therapy
CPT/HCPCS: 36415; 71045; 80053; 83735; 84484; 85025; 87502; 87635; 93005; 94640; 96374; 99284; J1885

== ENCOUNTER 2023-11-13 11:47 | Day surgery (SDC) | payer MEDICAID, SELFPAY ==
[2023-11-13 12:05] LABS: Glucose, Whole Blood 116 mg/dL (60-115)
[2023-11-13 12:17] VITALS: BMI 34.4
[2023-11-13 12:19] VITALS: BP 135/76; PULSE 56; RESP 19; TEMP 36.6; O2SAT 97
[2023-11-13] MEDS: Lactated Ringers 1,000 ML 100 ML IVCONT (12:23)
--- NOTE | 2023-11-13 12:23 | MHC.SHP ---
Pre-Procedural Eval Section A Date of Service: 11/13/23 The patient is an INPATIENT: No The History & Physical has been completed within 30 days and I have reviewed it.: No Section B Chief Complaint: Surveillance for colon polyps, const, abd pain Relevant Family History (Specify if Yes): Yes Relevant Social History: Tobacco Use Present Medications: see Short Stay Collaborative assessment Medical History: Significant History (Gastritis Tubular adenoma of colon Bacterial vaginosis Hypertension LLQ abdominal pain 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) History of Previous Operations: Relevant previous surgery/procedure and date(s) (History of esophagogastroduodenoscopy (EGD) Hx of colonoscopy) Allergies: Allergies Allergy/AdvReac Type Severity Reaction Status Date / Time No Known Allergies Allergy Verified 07/21/23 12:28 [No Known Allergies*] Review of Systems Sugical H&P ROS: Negative: Constitution, Cardiovascular, Respiratory and Gastrointestinal Exam Surgical H&P Exam: Normal: Heart, Normal: Lungs, Normal: Extremities and Normal: Abdomen Plan Diagnosis/Plan: Unchanged I have reviewed the history and physical and performed a pertinent physical examination on my patient. No changes have occurred unless specified. Time Spent With Patient Time: Total time managing care of this patient today ____ minutes.
--- NOTE | 2023-11-13 12:40 | HO.ANESPROP2 ---
Documented by User: Margarita Mak NP 11/12/23 12:47 HPI - Anesthesia Eval Consult details Narrative: 63yo F for Upper Endoscopy and Colonoscopy PMFSH Active Problems Active Problems: All Active Problems (Updated 09/18/23 @ 00:02 by Background Daemon) Erosive gastritis (Acute) Transaminitis (Acute) Well woman exam (Acute) Epigastric pain (Acute) Abdominal bloating (Acute) COVID-19 (Acute) Leiomyoma (Acute) Bacterial vaginosis (Acute) Pelvic pain (Acute) Well woman exam (Acute) Delayed gastric emptying (Acute) Tubular adenoma of colon (Acute) Urinary frequency (Acute) Diverticulitis (Acute) Abdominal cramping (Acute) Hemorrhoids (Acute) Unsatisfactory cervical Papanicolaou smear (Acute) Postmenopausal bleeding (Acute) Chronic idiopathic constipation (Acute) GERD (gastroesophageal reflux disease) (Acute) Past Medical History Medical History (Updated 09/18/23 @ 00:02 by Background Dagurpreeton) Smoker Bacterial vaginosis Hypertension Tubular adenoma of colon LLQ abdominal pain 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 Gastritis Family History Family History Father Family history of prostate problems Colon cancer Mother Tumor Surgical History Surgical History (Updated 11/13/23 @ 12:22 by Tegan Bernal RN) Hx of hernia repair History of esophagogastroduodenoscopy (EGD) Hx of colonoscopy Social History Social History Household Members: None Alcohol intake: current Alcohol intake frequency: a few times a month Patient Tobacco Use Status: Current everyday Tobacco user Cigarettes Per Day: 2 Are you DNR?: No Advance Directives: No Advance Directives Information Provided: Yes Current occupational status: disabled Meds Allergies Allergy/AdvReac Type Severity Reaction Status Date / Time No Known Allergies Allergy Verified 07/21/23 12:28 [No Known Allergies*] Home Medications Medication Instructions Recorded Confirmed Last Taken Type fluoxetine 20 mg capsule (Prozac) 2 cap PO QAM 06/10/21 06/10/21 Unknown History gabapentin 100 mg capsule 1 cap PO BEDTIME 06/10/21 06/10/21 Unknown History prazosin 2 mg capsule 2 cap PO BEDTIME 06/10/21 06/10/21 Unknown History levothyroxine 75 mcg tablet 75 mcg PO QAM 05/23/22 11/13/23 History sertraline 100 mg tablet 150 mg PO QAM 05/23/22 Unknown History albuterol sulfate 90 mcg/actuation 2 puff inhalation Q4-6H PRN 03/24/23 Unknown History aerosol inhaler (Ventolin HFA) atenolol 25 mg tablet 25 mg PO QAM 03/24/23 Unknown History fluticasone propionate 220 1 puff inhalation BID 03/24/23 Unknown History mcg/actuation HFA aerosol inhaler (Flovent HFA) fluticasone propionate 50 2 spray intranasal DAILY 03/24/23 Unknown History mcg/actuation nasal spray,suspension lisinopril 5 mg tablet 5 mg PO QAM 03/24/23 Unknown History loratadine 10 mg tablet 10 mg PO QAM PRN allergies 03/24/23 Unknown History bupropion HCl 300 mg 24 hr tablet, 300 mg PO QAM 08/26/23 Unknown History extended release prednisone 20 mg tablet 40 mg PO QAM 11/13/23 11/13/23 Unknown History Exam Pertinent Lab Results Pertinent Lab Results: Laboratory Tests 09/17/23 07:30 WBC 7.4 Hgb 12.8 Hct 39.7 Plt Count 239 Sodium 138 Potassium 4.2 Chloride 103 Carbon Dioxide 26 BUN 12 Creatinine 0.75 Narrative Narrative: EKG 08/2023 Vent. Rate : 051 BPM Atrial Rate : 051 BPM P-R Int : 142 ms QRS Dur : 072 ms QT Int : 444 ms P-R-T Axes : -01 018 032 degrees QTc Int : 409 ms Sinus bradycardia Otherwise normal ECG When compared with ECG of 17-JUL-2023 18:49, No significant change was found Assessment and Plan Assessment Anesthesia Assessment: Chart Reviewed Documented by User: Natalie Proctor DO 11/13/23 12:47 [facility] Past Medical History Medical History (Updated 09/18/23 @ 00:02 by Background Junior) Smoker Bacterial vaginosis Hypertension Tubular adenoma of colon LLQ abdominal pain 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 Gastritis Family History Family History Father Family history of prostate problems Colon cancer Mother Tumor Family history of problems with anesthesia: No Surgical History Surgical History (Updated 11/13/23 @ 12:22 by Tegan Bernal RN) Hx of hernia repair History of esophagogastroduodenoscopy (EGD) Hx of colonoscopy History of Problems with Anesthesia: No Social History Social History Household Members: None Alcohol intake: current Alcohol intake frequency: a few times a month Patient Tobacco Use Status: Current everyday Tobacco user Cigarettes Per Day: 2 Are you DNR?: No Advance Directives: No Advance Directives Information Provided: Yes Current occupational status: disabled Meds Allergies Allergy/AdvReac Type Severity Reaction Status Date / Time No Known Allergies Allergy Verified 07/21/23 12:28 [No Known Allergies*] Home Medications Medication Instructions Recorded Confirmed Last Taken Type fluoxetine 20 mg capsule (Prozac) 2 cap PO QAM 06/10/21 06/10/21 Unknown History gabapentin 100 mg capsule 1 cap PO BEDTIME 06/10/21 06/10/21 Unknown History prazosin 2 mg capsule 2 cap PO BEDTIME 06/10/21 06/10/21 Unknown History levothyroxine 75 mcg tablet 75 mcg PO QAM 05/23/22 11/13/23 History sertraline 100 mg tablet 150 mg PO QAM 05/23/22 Unknown History albuterol sulfate 90 mcg/actuation 2 puff inhalation Q4-6H PRN 03/24/23 Unknown History aerosol inhaler (Ventolin HFA) atenolol 25 mg tablet 25 mg PO QAM 03/24/23 Unknown History fluticasone propionate 220 1 puff inhalation BID 03/24/23 Unknown History mcg/actuation HFA aerosol inhaler (Flovent HFA) fluticasone propionate 50 2 spray intranasal DAILY 03/24/23 Unknown History mcg/actuation nasal spray,suspension lisinopril 5 mg tablet 5 mg PO QAM 03/24/23 Unknown History loratadine 10 mg tablet 10 mg PO QAM PRN allergies 03/24/23 Unknown History bupropion HCl 300 mg 24 hr tablet, 300 mg PO QAM 08/26/23 Unknown History extended release prednisone 20 mg tablet 40 mg PO QAM 11/13/23 11/13/23 Unknown History Exam Exam Date and Time: November 13, 2023 1240 Height,Weight and Vital Signs: Height 5 ft 2 in Weight 85.366 kg Vital Signs Temperature 98 F 11/13/23 12:19 Pulse Rate 56 11/13/23 12:19 Respiratory Rate 19 11/13/23 12:19 Blood Pressure 135/76 11/13/23 12:19 Pulse Oximetry 97 11/13/23 12:19 Oxygen Delivery Method Room Air 11/13/23 12:19 Temperature 98 F 11/13/23 12:19 Pulse Rate 56 11/13/23 12:19 Respiratory Rate 19 11/13/23 12:19 Blood Pressure 135/76 11/13/23 12:19 Pulse Oximetry 97 11/13/23 12:19 Oxygen Delivery Method Room Air 11/13/23 12:19 Airway Mallampati Class: II TM Dist: <=3cm Neck ROM: Full Loose/Missing/Broken Teeth: Yes (a few broken teeth but nothing loose) Heart: S1S2 Lungs: CTAB Assessment and Plan Assessment Anesthesia Assessment: Anesthesia Plan Discussed and Chart Reviewed Final Anesthetic Review Family History of Problems with Anesthesia: No History of Problems with Anesthesia: No NPO: Yes ASA Class: III Final Preanesthetic Review: No Changes in Pt Med Stat, Meds/Allgs Chart Reviewed, Consent Obtained/Reviewed and Anes Risks/Benef Reviewed Patient Risk: Low Procedure Risk: Low Anesthetic Plan Anesthetic Plan: MAC: and Agree w/ Assess. and Plan Disposition: Standard PACU
--- NOTE | 2023-11-13 13:39 | W.PM.OPN ---
Operative Note Operative Note Date of Service: 11/13/23 Narrative: FLEXIBLE TRANSORAL UPPER GASTROINTESTINAL ENDOSCOPY WITH BIOPSIES AND COLONOSCOPY TILL CECUM WITH SNARE POLYPECTOMY Pre-op diagnosis: Surveillance for colon polyps, constipation, abd pain Post-op diagnosis: ?GERD, gastritis, gastric polyps, colon polyps, diverticulosis, hemorrhoids Endoscopist:? Bryson Elena MD Anesthesia:?MAC UPPER ENDOSCOPY Consent: Indications for the procedure and potential complications of bleeding, perforation, reaction to medications and missed diagnosis were discussed with the patient and informed consent was obtained. Instrument: Olympus GIF H 190 mid size upper endoscope Monitoring: Vital signs and clinical assessment, continuous EKG monitoring, Pulse oximetry, Carbon Dioxide monitoring and blood pressure monitoring were done throughout the procedure. Procedure: The patient was placed in the left lateral decubitis position and pre-procedure medications were administered and a bite block was placed. The endoscope was inserted into the mouth and advanced under direct vision to the third part of duodenum. A careful inspection was made as the upper endoscope was withdrawn including a retroflexed examination of the proximal stomach; Findings and interventions are described below. Findings: Larynx: Normal Esophagus: GE junction at 38 cms. No esophagitis or Munoz's. Stomach: A few 2-5 mm sessile polyps in the gastric fundus - one was biopsied. Moderate diffuse gastric erythema with a few superficial antral erosions. Biopsies were obtained. Grade 2 flap valve on retroflexed examination of the cardia. Duodenum: Normal bulb and descending duodenum. Biopsies were obtained from 3rd part of duodenum to check for celiac sprue Intervention: Biopsies as noted above COLONOSCOPY PROCEDURE NOTE Consent: Indications for the procedure and potential complications of bleeding, perforation, reaction to medications and missed diagnosis were discussed with the patient and informed consent was obtained. Instrument: Olympus PCF H 190 L variable stiffness pediatric colonoscope Monitoring: Vital signs and clinical assessment, intermittent blood pressure monitoring, continuous EKG monitoring, Pulse oximetry and Carbon Dioxide monitoring were done throughout the procedure. Colon withdrawl time was 17 minutes. Procedure: The patient was placed in the left lateral decubitis position and pre-procedure medications were administered. After a digital rectal examination of the ano-rectum, the video colonoscope was inserted into the rectum and advanced through the colon to the cecum. The colonoscope was slowly withdrawn in a retrograde panoramic fashion and the colon mucosa was carefully examined including a retroflexed view of the rectum. Findings and interventions are described below. Procedure Difficulty: There was a sharp turn with narrowing due to severe diverticulosis at 30 cms which was navigated with difficulty Findings: Terminal Ileum: Not evaluated Cecum: Normal Ascending Colon: A 4-5 mm sessile polyp - removed with a cold snare Transverse Colon: Two 7-8 mm sessile polyps - removed with a cold snare. A 10-12 mm sessile polyp - removed with a hot snare Moderate diverticulosis Descending Colon: Moderate diverticulosis Sigmoid Colon: Severe diverticulosis with luminal narrowing Rectum: Normal Ano-rectum: Moderate internal hemorrhoids Colon preparation: Good after copious irrigation Impression and Post Procedure Diagnosis: Endoscopy Findings: STOMACH: A few 2-5 mm sessile polyps in the gastric fundus - one was biopsied. Moderate diffuse gastric erythema with a few superficial antral erosions. Biopsies were obtained. DUODENUM: Normal - biopsied to check for celiac sprue Colonoscopy Findings: Three small and one medium sized polyps removed Moderate diverticulosis seen in the left and transverse colon Moderate hemorrhoids on retroflexed exam. Plan: Await pathology results Patient has an appointment on 11/27/23 in the GI Clinic with Tanya Lai NP . Repeat Colonoscopy interval based on path results - in 3-5 years if polyps are adenomatous and 10 years if polyps are hyperplastic. Above findings were reviewed with the patient and gastric polyps, colon polyps and diverticulosis handouts were given in the discharge area
[2023-11-13 14:45] VITALS: PULSE 53; RESP 12; TEMP 36.6; O2SAT 96
[2023-11-13 15:00] VITALS: BP 122/70; PULSE 51; RESP 16; TEMP 36.6; O2SAT 95
== END 2023-11-13 16:00 | disposition home or self-care (01) ==
PROVIDERS: PCP Family Medicine; Visit Provider Internal Medicine Gastroenterology
PROC: (CPT 45385; principal; 2023-11-13 13:50)
DX: Z12.11 Encounter for screening for malignant neoplasm of colon (principal); Z86.010 Personal history of colon polyps; D12.2 Benign neoplasm of ascending colon; D12.3 Benign neoplasm of transverse colon; K57.30 Diverticulosis of large intestine without perforation or abscess without bleeding; K64.8 Other hemorrhoids; K59.04 Chronic idiopathic constipation; K30 Functional dyspepsia; K21.9 Gastro-esophageal reflux disease without esophagitis; K29.60 Other gastritis without bleeding; K31.7 Polyp of stomach and duodenum; I10 Essential (primary) hypertension; E11.9 Type 2 diabetes mellitus without complications; R74.01 Elevation of levels of liver transaminase levels; Z79.51 Long term (current) use of inhaled steroids; Z79.52 Long term (current) use of systemic steroids; Z79.899 Other long term (current) drug therapy; F17.210 Nicotine dependence, cigarettes, uncomplicated
CPT/HCPCS: 45385; 43239; 82947; 88305; 88342; J2704

== ENCOUNTER → 2023-11-13 11:47 | Outpatient (BNV) | payer MEDICAID, SELFPAY | PROVIDERS: PCP Family Medicine; Visit Provider Internal Medicine Gastroenterology | DX: K21.9 Gastro-esophageal reflux disease without esophagitis (principal); K29.70 Gastritis, unspecified, without bleeding; K31.7 Polyp of stomach and duodenum; K63.5 Polyp of colon; K57.90 Diverticulosis of intestine, part unspecified, without perforation or abscess without bleeding; K64.8 Other hemorrhoids | CPT/HCPCS: 43239; 45385 ==

== ENCOUNTER 2023-11-27 13:39 | Outpatient (AMB) | payer MEDICAID, SELFPAY ==
--- NOTE | 2023-11-27 14:15 | A.OFFVIS_ITS ---
Intake Vital Signs 11/27/23 14:16 Height 5 ft 2 in Weight 188 lb 4.396 oz BMI 34.4 BP 128/86 Blood Pressure Location Rt brachial Position Sitting Pulse 64 Intake Visit Reasons: s/p colo/EGD Intake Note: Patient presents to in office visit today in follow up of colo/EGD. CC:Patient underwent colonoscopy and EGD on 11/13/[address] Elena. She reports epigastric pain and GERD. Denies other GI symptoms today. Allergies No Known Allergies [No Known Allergies*] Allergy (Verified 12/01/23 13:01) HPI s/p colo/EGD HPI Details Assessment & Plan (1) Epigastric pain: Code(s): R10.13 - Epigastric pain (2) GERD (gastroesophageal reflux diseas e): Code(s): K21.9 - Gastro-esophageal reflux disease without esophagitis (3) Chronic idiopathic constipation: Code(s): K59.04 - Chronic idiopathic constipation (4) Abdominal bloating: Code(s): R14.0 - Abdominal distension (gaseous) (5) Tubular adenoma of colon: Comment: 2012 scope, 2019 neg repeat 5 years Code(s): D12.6 - Benign neoplasm of colon, unspecified (6) Erosive gastritis: Code(s): K29.60 - Other gastritis without bleeding Orders: Orders EGD/[place] [facility] - G I Use Only Today D12.6 - Benign facundo plasm of colon, un specified Medications: New peg 3350-electroly nathaly 236-22.74-6.74 -5.86 gram (Golyt gus) until feca l effluent is lisa r; do not exceed a total volume of 2 ,000 mL 240 mL PO Q10M 1 day 4,000 mL 0RF Z12.11 - Encounter for screening for malignant neoplas m of colon bisacodyl ([place] x (bisacodyl)) 10 mg (2 x 5 mg) P O BEDTIME 2 days 4 tabs 0RF Refilled linaclotide (Linze ss) 72 mcg PO .q2pm 3 0 caps 6RF K59.04 - Chronic i diopathic constipa tion metoclopramide HCl (Reglan) Provi edouard aware of possi ble interactions w ith sertraline and antidepressant, m onitoring 5 mg PO .TIDAC 90 tabs 6RF K30 - Functional d yspepsia pantoprazole 40 mg PO BID 60 t abs 6RF K21.9 - Gastro-eso phageal reflux dis ease without esoph agitis, K29.70 - G astritis, unspecif ied, without bleed ing simethicone aft er meals 180 mg PO QID 30 days 120 caps 6RF EGD/COLONOSCOPY 11/13/23 Findings: Larynx: Normal Esophagus: GE junction at 38 cms. No esophagitis or Munoz's. Stomach: A few 2-5 mm sessile polyps in the gastric fundus - one was biopsied. Moderate diffuse gastric erythema with a few superficial antral erosions. Biopsies were obtained. Grade 2 flap valve on retroflexed examination of the cardia. Duodenum: Normal bulb and descending duodenum. Biopsies were obtained from 3rd part of duodenum to check for celiac sprue Findings: Terminal Ileum: Not evaluated Cecum: Normal Ascending Colon: A 4-5 mm sessile polyp - removed with a cold snare Transverse Colon: Two 7-8 mm sessile polyps - removed with a cold snare. A 10-12 mm sessile polyp - removed with a hot snare Moderate diverticulosis Descending Colon: Moderate diverticulosis Sigmoid Colon: Severe diverticulosis with luminal narrowing Rectum: Normal Ano-rectum: Moderate internal hemorrhoids Colon preparation: Good after copious irrigation Impression and Post Procedure Diagnosis: Endoscopy Findings: STOMACH: A few 2-5 mm sessile polyps in the gastric fundus - one was biopsied. Moderate diffuse gastric erythema with a few superficial antral erosions. Biopsies were obtained. DUODENUM: Normal - biopsied to check for celiac sprue Colonoscopy Findings: Three small and one medium sized polyps removed Moderate diverticulosis seen in the left and transverse colon Moderate hemorrhoids on retroflexed exam. Plan: Await pathology results Patient has an appointment on 11/27/23 in the GI Clinic with Tanya Lai NP . Repeat Colonoscopy interval based on path results - in 3-5 years if polyps are adenomatous and 10 years if polyps are hyperplastic. BIOPSY Received: 11/13/23 Diagnosis A. Small bowel, biopsy: Duodenal/small bowel mucosa with preserved villi and no specific change; no evidence of celiac disease. B. Gastric antrum, biopsy: Gastric antral mucosa with reactive changes and focal minimal chronic inactive inflammation; negative for H pylori, intestinal metaplasia and dysplasia. C. Gastric polyp, biopsy: Gastric body mucosa with mild features consistent with fundic gland polyp, and focal minimal chronic inactive inflammation; negative for H pylori, intestinal metaplasia and dysplasia. D. Gastric body, biopsy: Gastric body mucosa with focal minimal chronic inactive inflammation; negative for H pylori, intestinal metaplasia and dysplasia. E. Colon, transverse, polyps: Tubular adenomas (3 pieces involved); negative for high-grade dysplasia and carcinoma. F. Colon, ascending, polyp: Tubular adenoma; negative for high-grade dysplasia and carcinom TODAY'S VISIT [place] [facility] [employer] [employer] She is agreeable to a 5 year follow-up. The procedure was well tolerated. The results were explained and the patient is agreeable to the follow-up interval as stated. The bowel pattern has returned to normal. Education was provided to tell any 1st degree relatives about their findings to be sure that they are screened by age 45. Educated that they will be put on a recall list when it is time for their repeat scope but should they move out of state or away from the hospital they will need to remember along with their primary to repeat the procedure in a timely fashion to avoid any adverse complications. She received the Linzess and 72 mcg it is moving her bowels well. She has moved the dosing to the afternoon because that works better with her personal schedule. She continues to have pain in the midline but only when she eats. She also did have a lot of nausea but she says that the Reglan at the 5 mg dose has been helpful for the pain and the nausea. Since we found any severe pathology on upper endoscopy I think will try increasing the dose to 10 mg 3 times a day. She does have some interactions with some psych meds but we will bring her back in a few weeks for close monitoring and make sure there is no problems. She tolerated the 5 mg dose without any adverse effects. She continues on pantoprazole twice a day which seems to be controlling any of her gastritis and her Rocephin soft diet is. She also utilizes dicyclomine when she has bad cramping and she finds it useful although she only uses it intermittently. She also has simethicone available to her. Return office visit in 3 weeks [facility] Medical History Smoker Bacterial vaginosis Hypertension Tubular adenoma of colon LLQ abdominal pain 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 Gastritis Surgical History Hx of hernia repair History of esophagogastroduodenoscopy (EGD) Hx of colonoscopy Family History Father Family history of prostate problems Colon cancer Mother Tumor Social History Household Members: None Alcohol intake: current Alcohol intake frequency: a few times a month Patient Tobacco Use Status: Current everyday Tobacco user Cigarettes Per Day: 2 Current occupational status: disabled Female Reproductive History Menstrual Age of Menarche: 13 Review of Systems Const Denies fatigue, Denies fever(s), Denies night sweats, Denies poor appetite and Denies weight loss Eyes Details: glasses Reports requires corrective lenses ENT Reports Normal hearing present, Denies dental pain, Denies dysphagia, Denies hearing loss, Denies mouth pain, Denies odynophagia, Denies throat swelling, Denies tongue swelling and Reports other (Dentition adequate) Card Reports no additional complaints Resp Reports no additional complaints GI Reports abdominal pain, Denies melena, Denies bloating, Denies hematochezia, Reports constipation, Denies GI cramping, Denies dysphagia, Denies excessive flatus, Reports early satiety, Reports heartburn, Denies diarrhea, Reports nausea, Denies odynophagia, Denies vomiting and Denies hematemesis Skin/Breast Denies pruritus, Denies lesions, Denies rash and Denies jaundice Neuro Reports Normal hearing present and Denies Abnormal speech present Endo Denies fatigue Aller/Immun Denies throat swelling and Denies tongue swelling Physical Exam Vital Signs: Last Vital Signs Pulse 64 11/27/23 14:16 BP 128/86 11/27/23 14:16 BMI result Body Mass Index 34.4 Const General: cooperative, no acute distress, well developed and well groomed Nutritional Appearance: well nourished and obese Orientation/consciousness: oriented to person, oriented to place and oriented to time Limitations: language barrier HEENT Head: Yes normocephalic and Yes atraumatic Eyes General: appearance normal, both eyes and all related structures Pupils: Equal, round and reactive pupils present Neck Neck: Yes normal visual inspection and Yes no lymphadenopathy Thyroid: Thyroid normal Resp Effort & Inspection: normal respiratory effort and able to speak in complete sentences Auscultation: clear to auscultation bilaterally Cardio Rate: regular rate Rhythm: regular rhythm Heart sounds: Normal, physiologic split S2 sound present Peripheral pulses: radial pulses present and posterior tibial pulses present GI Inspection: No distended, No Abdominal panniculus present and Yes obesity Palpation (GI): Soft to palpation, nontender, no guarding, not rigid and No hepatosplenomegaly present Percussion: Yes normal to percussion Auscultation: normal bowel sounds Rectal Exam - Female: deferred Skin General skin exam: no rashes or lesions noted, turgor normal, skin not dry, no jaundice, No spider nevi and no striae Rashes: no rashes Nails: normal Neuro General: oriented to person, oriented to place and oriented to time Cranial nerves: Yes Equal, round and reactive pupils present and Yes Normal hearing present Speech: No Abnormal speech present Extrem General: Yes normal to inspection, No clubbing, No cyanosis and No edema Psych Appearance: grossly normal and well kempt Mental Status: mental status grossly normal Speech and movement: Normal speech and movement present Affect: normal affect Attitude: cooperative Thought process: Normal thought process present and not confabulating Thought content: Normal thought content present Insight: Limited insight present (Psych) Judgement: Limited judgement present (Psych) Results Reviewed Results Reviewed: EGD/COLONOSCOPY 11/13/23 Findings: Larynx: Normal Esophagus: GE junction at 38 cms. No esophagitis or Munoz's. Stomach: A few 2-5 mm sessile polyps in the gastric fundus - one was biopsied. Moderate diffuse gastric erythema with a few superficial antral erosions. Biopsies were obtained. Grade 2 flap valve on retroflexed examination of the cardia. Duodenum: Normal bulb and descending duodenum. Biopsies were obtained from 3rd part of duodenum to check for celiac sprue Findings: Terminal Ileum: Not evaluated Cecum: Normal Ascending Colon: A 4-5 mm sessile polyp - removed with a cold snare Transverse Colon: Two 7-8 mm sessile polyps - removed with a cold snare. A 10-12 mm sessile polyp - removed with a hot snare Moderate diverticulosis Descending Colon: Moderate diverticulosis Sigmoid Colon: Severe diverticulosis with luminal narrowing Rectum: Normal Ano-rectum: Moderate internal hemorrhoids Colon preparation: Good after copious irrigation Impression and Post Procedure Diagnosis: Endoscopy Findings: STOMACH: A few 2-5 mm sessile polyps in the gastric fundus - one was biopsied. Moderate diffuse gastric erythema with a few superficial antral erosions. Biopsies were obtained. DUODENUM: Normal - biopsied to check for celiac sprue Colonoscopy Findings: Three small and one medium sized polyps removed Moderate diverticulosis seen in the left and transverse colon Moderate hemorrhoids on retroflexed exam. Plan: Await pathology results Patient has an appointment on 11/27/23 in the GI Clinic with Tanya Lai NP . Repeat Colonoscopy interval based on path results - in 3-5 years if polyps are adenomatous and 10 years if polyps are hyperplastic. BIOPSY Received: 11/13/23 Diagnosis A. Small bowel, biopsy: Duodenal/small bowel mucosa with preserved villi and no specific change; no evidence of celiac disease. B. Gastric antrum, biopsy: Gastric antral mucosa with reactive changes and focal minimal chronic inactive inflammation; negative for H pylori, intestinal metaplasia and dysplasia. C. Gastric polyp, biopsy: Gastric body mucosa with mild features consistent with fundic gland polyp, and focal minimal chronic inactive inflammation; negative for H pylori, intestinal metaplasia and dysplasia. D. Gastric body, biopsy: Gastric body mucosa with focal minimal chronic inactive inflammation; negative for H pylori, intestinal metaplasia and dysplasia. E. Colon, transverse, polyps: Tubular adenomas (3 pieces involved); negative for high-grade dysplasia and carcinoma. F. Colon, ascending, polyp: Tubular adenoma; negative for high-grade dysplasia and carcinom Assessment & Plan Assessment & Plan (1) Delayed gastric emptying: Code(s): K30 - Functional dyspepsia Plan [place] #Le[facility] CHOW She is agreeable to a 5 year follow-up. The procedure was well tolerated. The results were explained and the patient is agreeable to the follow-up interval as stated. The bowel pattern has returned to normal. Education was provided to tell any 1st degree relatives about their findings to be sure that they are screened by age 45. Educated that they will be put on a recall list when it is time for their repeat scope but should they move out of state or away from the hospital they will need to remember along with their primary to repeat the procedure in a timely fashion to avoid any adverse complications. She received the Linzess and 72 mcg it is moving her bowels well. She has moved the dosing to the afternoon because that works better with her personal schedule. She continues to have pain in the midline but only when she eats. She also did have a lot of nausea but she says that the Reglan at the 5 mg dose has been helpful for the pain and the nausea. Since we found any severe pathology on upper endoscopy I think will try increasing the dose to 10 mg 3 times a day. She does have some interactions with some psych meds but we will bring her back in a few weeks for close monitoring and make sure there is no problems. She tolerated the 5 mg dose without any adverse effects. She continues on pantoprazole twice a day which seems to be controlling any of her gastritis and her fundic erosions that seem to be healing. She also utilizes dicyclomine when she has bad cramping and she finds it useful although she only uses it intermittently. She also has simethicone available to her. Return office visit in 3 weeks Medications: New metoclopramide HCl (Reglan) 10 mg PO .tidac 90 tabs 6RF K30 - Functional dyspepsia Refilled linaclotide (Linzess) 72 mcg PO .q2pm 30 caps 6RF K59.04 - Chronic idiopathic constipation dicyclomine 20 mg PO TID 90 tabs 6RF R10.9 - Unspecified abdominal pain pantoprazole 40 mg PO BID 60 tabs 6RF K29.70 - Gastritis, unspecified, without bleeding, K21.9 - Gastro-esophageal reflux disease without esophagitis simethicone after meals 180 mg PO QID 120 caps 6RF 30 days Discontinued sennosides Discontinued Reason: Doctor's Order 17.2 mg (2 x 8.6 mg) PO BEDTIME 30 days 60 caps 6RF constipation Coding Level of Care Code Est Pt Level 4 (55438) Diagnoses Delayed gastric emptying K30 Time Spent (min) 31
[2023-11-27 14:16] VITALS: BP 128/86; PULSE 64; BMI 34.4
== END 2023-11-27 14:46 | disposition home or self-care (01) ==
PROVIDERS: PCP Family Medicine; Visit Provider Nurse Practitioner
DX: K30 Functional dyspepsia (principal)
CPT/HCPCS: 99214

== ENCOUNTER → 2023-11-27 13:39 | Outpatient (BNVA) | payer MEDICAID, SELFPAY | PROVIDERS: PCP Family Medicine; Visit Provider Nurse Practitioner | DX: K30 Functional dyspepsia (principal) | CPT/HCPCS: 99212 ==

== ENCOUNTER 2023-12-01 12:44 | Outpatient (AMB) | payer MEDICAID, SELFPAY ==
--- NOTE | 2023-12-01 12:57 | MHC.OFFVIS ---
Intake Vital Signs 12/01/23 13:02 Height 5 ft 2 in Weight 189 lb 6 oz BMI 34.6 BP 128/71 Blood Pressure Location Lt brachial Position Sitting Pulse 61 Intake Visit Reasons: Left areolar mass Intake Note: Patient is seen in office for evaluation and treatment of a left areolar mass. Patient c/o: left breast mass 12 o'clock, onset for years, denies increase/decrease, swelling, discharge, discoloration, prior breast biopsy unsure which breast (benign), no prior family hx of breast CA, no prior breast complications mm:02/25/23 Magnetic Resonance Imaging Director Required: Yes Magnetic Resonance Imaging Director Language: Custom Protection Officer Name: Shobha FELIZ Information Interpreted: non-clinical & clinical Quality Control Representative: Quality Control Representative Present Accompanied by: Self / Same As Patient Allergies No Known Allergies [No Known Allergies*] Allergy (Verified 12/01/23 13:01) Medication List - Last Reconciled 12/01/23 by Blue Garcia MD albuterol sulfate 90 mcg/actuation (Ventolin HFA) 2 puffs inhalation Q4-6H PRN atenolol 25 mg PO QAM bupropion HCl 300 mg PO QAM dicyclomine 20 mg PO TID doxycycline hyclate 100 mg PO BID 10 days fluoxetine (Prozac) 2 caps PO QAM fluticasone propionate 50 mcg/actuation 2 sprays intranasal DAILY fluticasone propionate 220 mcg/actuation (Flovent HFA) 1 puff inhalation BID gabapentin 1 cap PO BEDTIME levothyroxine 75 mcg PO QAM linaclotide (Linzess) 72 mcg PO .q2pm lisinopril 5 mg PO QAM loratadine 10 mg PO QAM PRN metoclopramide HCl (Reglan) 10 mg PO .tidac pantoprazole 40 mg PO BID prazosin 2 caps PO BEDTIME prednisone 40 mg PO QAM sertraline 150 mg PO QAM simethicone 180 mg PO QID 30 days HPI HPI Comments History of Present Illness Details 63-year-old female patient presenting with complaints of pain in the left breast noted on examination to have a palpable lump. She reports the lump is been present for many years and has not changed significantly. The breast pain however is relatively new felt in the lower inner quadrant. She denies a previous history of breast surgery or breast cancer. Her family history is negative for breast cancer. Previous mammogram and ultrasound obtained on 02/25/2023 revealed no mammographic evidence of malignancy and no sonographic evidence of malignancy (BI-RADS 2). Her BasilioShayy remaining lifetime risk of breast cancer was calculated at 3%. [facility] Medical History Smoker Bacterial vaginosis Hypertension Tubular adenoma of colon LLQ abdominal pain 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 Gastritis Surgical History Hx of hernia repair History of esophagogastroduodenoscopy (EGD) Hx of colonoscopy Family History Father Family history of prostate problems Colon cancer Mother Tumor Social History Household Members: None Alcohol intake: current Alcohol intake frequency: a few times a month Patient Tobacco Use Status: Current everyday Tobacco user Cigarettes Per Day: 2 Current occupational status: disabled Female Reproductive History Menstrual Age of Menarche: 13 Age of menopause: 39 Total pregnancies: 4 Number of Living Children: 2 Review of Systems Const All systems reviewed & are unremarkable except as noted in HPI and below Physical Exam Vital Signs: Last Vital Signs Pulse 61 12/01/23 13:02 BP 128/71 12/01/23 13:02 BMI result Body Mass Index 34.6 Const General: cooperative and no acute distress Nutritional Appearance: well nourished Orientation/consciousness: patient oriented x3 Limitations: no limitations HEENT Head: Yes normocephalic and Yes atraumatic Ears: hearing grossly normal bilaterally Chest Other: Left breast area of tenderness located in the lower inner quadrant as well as lower outer quadrant along the margins of the pectoralis muscle. An area of fibrocystic changes noted in the 2 o'clock position of the left breast with no discrete mass appreciated. No skin changes, nipple discharge or enlarged lymph nodes are appreciated. Right breast has a similar area of tenderness along the lower inner and lower outer quadrant again at the margin of the pectoralis muscle. No discrete masses noted within this area. Mild fibrocystic changes were noted in the remaining breast tissue with no discrete mass. No skin changes, nipple discharge or enlarged lymph nodes were appreciated. Resp Effort & Inspection: normal respiratory effort, no audible wheezes, no cough and no respiratory distress Cardio Jugular venous distension: no JVD GI Inspection: Yes normal to inspection Skin Other: Warm, dry, no rash Neuro General: patient oriented x3 Extrem General: Yes no clubbing, cyanosis or edema Assessment & Plan Assessment & Plan (1) Pain of both breasts: Code(s): N64.4 - Mastodynia Plan 63-year-old female patient presenting with ongoing breast pain involving the lower inner quadrants of both breast extending into the outer quadrants with no suspicious findings noted on examination. Her most recent mammograms of February 2023 revealed no suspicious findings as well. Patient was reassured regarding her normal examination. She should continue self examination unremarkably basis and follow-up as needed. She should continue with yearly mammograms as well, due in February 2024. Coding Level of Care Code New Pt Level 4 (77725) Diagnoses Pain of both breasts N64.4
[2023-12-01 13:02] VITALS: BP 128/71; PULSE 61; BMI 34.6
== END 2023-12-01 13:21 | disposition home or self-care (01) ==
PROVIDERS: PCP Family Medicine; Referring Provider Family Medicine; Visit Provider Surgery
DX: N64.4 Mastodynia (principal)
CPT/HCPCS: 99203

== ENCOUNTER → 2023-12-01 12:44 | Outpatient (BNVA) | payer MEDICAID, SELFPAY | PROVIDERS: PCP Family Medicine; Referring Provider Family Medicine; Visit Provider Surgery | DX: N64.4 Mastodynia (principal) | CPT/HCPCS: 99202 ==

== ENCOUNTER 2024-03-15 14:52 | Outpatient (REF) | payer MEDICAID, SELFPAY ==
--- NOTE | ~2024-03-15 | XR_ITS ---
EXAMINATION: XR FOOT, LEFT CLINICAL INFORMATION: Left fourth toe pain after injury this morning COMPARISON: None available. TECHNIQUE: AP, lateral, and oblique views of the left foot. FINDINGS: No definite fracture or soft tissue swelling fourth toe, region of interest. Alignment is maintained. Mild degenerative changes first MTP. XR/XR foot LT min 3V IMPRESSION: No displaced fracture. If there is persistent clinical concern, repeat imaging in 7-10 days recommended.
== END 2024-03-15 14:53 | disposition home or self-care (01) ==
LOC: HO.HHCX 14:52
PROVIDERS: Visit Provider Internal Medicine
DX: M79.675 Pain in left toe(s) (principal)
CPT/HCPCS: 73630

== ENCOUNTER 2024-04-10 12:57 | Emergency (ER) | payer MEDICAID, SELFPAY ==
--- NOTE | ~2024-04-10 | XR_ITS ---
EXAMINATION: XR LUMBOSACRAL SPINE CLINICAL INFORMATION: Low back pain COMPARISON: None available. TECHNIQUE: Three views of the lumbosacral spine. FINDINGS: There is normal lumbar lordosis. The vertebral heights and alignment is normal. There is loss of L5-S1 disc height. Rest the disc heights are normal. No visible acute fracture, dislocation or subluxation seen. No aggressive lytic or sclerotic process seen. XR/XR lumbar spine 2-3V IMPRESSION: Mild degenerative disc changes L5-S1 disc level. No visible acute fracture or dislocation seen.
--- NOTE | 2024-04-10 13:03 | ED_ITS ---
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 Pain is worsened with movement. No radiation of pain. No associated numbness, tingling, weakness of lower extremities. No numbness in the groin. No bowel or bladder incontinence. No fevers or chills. No night sweats, weight loss, IV drug abuse. Has tried Tylenol home with continued pain. Related Data Home Medications ?Medication ?Instructions ?Recorded ?Confirmed fluoxetine 20 mg capsule (Prozac) 2 cap PO QAM 06/10/21 12/01/23 gabapentin 100 mg capsule 1 cap PO BEDTIME 06/10/21 12/01/23 prazosin 2 mg capsule 2 cap PO BEDTIME 06/10/21 12/01/23 levothyroxine 75 mcg tablet 75 mcg PO QAM 05/23/22 12/01/23 sertraline 100 mg tablet 150 mg PO QAM 05/23/22 12/01/23 albuterol sulfate 90 mcg/actuation 2 puff inhalation Q4-6H PRN 03/24/23 12/01/23 aerosol inhaler (Ventolin HFA) atenolol 25 mg tablet 25 mg PO QAM 03/24/23 12/01/23 fluticasone propionate 220 1 puff inhalation BID 03/24/23 12/01/23 mcg/actuation HFA aerosol inhaler (Flovent HFA) fluticasone propionate 50 2 spray intranasal DAILY 03/24/23 12/01/23 mcg/actuation nasal spray,suspension lisinopril 5 mg tablet 5 mg PO QAM 03/24/23 12/01/23 loratadine 10 mg tablet 10 mg PO QAM PRN allergies 03/24/23 12/01/23 bupropion HCl 300 mg 24 hr tablet, 300 mg PO QAM 08/26/23 12/01/23 extended release prednisone 20 mg tablet 40 mg PO QAM 11/13/23 12/01/23 Previous Rx's ?Medication ?Instructions ?Recorded doxycycline hyclate 100 mg capsule 100 mg PO BID 10 days #20 caps 09/17/23 dicyclomine 20 mg tablet 20 mg PO TID #90 tabs 11/27/23 linaclotide 72 mcg capsule 72 mcg PO .q2pm #30 caps 11/27/23 (Linzess) metoclopramide HCl 10 mg tablet 10 mg PO .tidac #90 tabs 11/27/23 (Reglan) pantoprazole 40 mg tablet,delayed 40 mg PO BID #60 tabs 11/27/23 release simethicone 180 mg capsule 180 mg PO QID 30 days #120 caps 11/27/23 cyclobenzaprine 10 mg tablet 10 mg PO TID PRN muscle spasm #15 04/10/24 tabs lidocaine 5 % topical patch 1 patch topical DAILY #15 ea 04/10/24 (Lidoderm) naproxen 500 mg tablet 500 mg PO BID PRN pain #30 tabs 04/10/24 Allergies Allergy/AdvReac Type Severity Reaction Status Date / Time No Known Allergies Allergy Verified 04/10/24 13:05 [No Known Allergies*] Review of Systems Review of Systems: Yes all other systems are reviewed and are negative Constitutional: Constitutional: Reports no additional constitutional complaints, Denies body ache(s), Denies chills, Denies fever(s), Denies headache(s), Denies night sweats, Denies weakness and Denies weight loss Eyes: Eyes: Reports no additional eye complaints and Denies change in vision ENT: Reports system reviewed and no additional complaints, except as documented, Denies dizziness, Denies headache(s), Denies nasal congestion, Denies nasal discharge and Denies neck pain Cardiovascular: Cardiovascular: Reports no additional cardiovascular complaints, Denies chest pain, Denies leg edema and Denies dyspnea Respiratory: Respiratory: Reports no additional respiratory complaints, Denies cough and Denies dyspnea Gastrointestinal: Gastrointestinal: Reports no additional gastrointestinal complaints, Denies abdominal pain, Denies diarrhea, Denies nausea and Denies vomiting Genitourinary: Genitourinary: Reports no additional female genitourinary complaints and Denies urinary incontinence Musculoskeletal: Musculoskeletal: Reports no additional musculoskeletal complaints, Reports back pain, Denies arthralgias, Denies joint swelling, Denies neck pain, Denies numbness and Denies tingling Integumentary/Breasts: Skin/Breast: Reports system reviewed and no additional complaints, except as docu and Denies rash Neurologic: Reports system reviewed and no additional complaints, except as documented, Denies Abnormal speech present, Denies dizziness, Denies headach e(s), Denies numbness, Denies tingling and Denies weakness PMF Past Medical History Attestation statement: The following information was validated with the patient. Source: old records reviewed and nursing notes reviewed Medical History Smoker Bacterial vaginosis Hypertension Tubular adenoma of colon LLQ abdominal pain 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 Gastritis Surgical History Hx of hernia repair History of esophagogastroduodenoscopy (EGD) Hx of colonoscopy Family History Family History Father Family history of prostate problems Colon cancer Mother Tumor Social History Social History Household Members: None Alcohol intake: current Alcohol intake frequency: a few times a month Patient Tobacco Use Status: Current everyday Tobacco user Cigarettes Per Day: 2 Advance Directives: No Advance Directives Information Provided: No Do you have a plan to hurt others: No Plan Current occupational status: disabled Physical Exam Vital Signs: Vital Signs: Last Vital Signs Temp 97.4 F 04/10/24 16:38 Pulse 62 04/10/24 16:38 Resp 20 04/10/24 16:38 BP 121/68 04/10/24 16:38 Pulse Ox 96 04/10/24 16:38 O2 Del Method Room Air 04/10/24 16:38 BMI result Body Mass Index 35.6 Const: General: cooperative, healthy appearing, comfortable and no acute distress Orientation/consciousness: patient oriented x3 Limitations: no limitations HEENT: Head: Yes normal to inspection Ears: hearing grossly normal bilaterally General nose exam: Normal external nose present Face and sinus: Yes normal facial exam Mouth: Normal oral and palatal mucosa present Throat: Yes posterior oropharynx normal Eyes: General: appearance normal, both eyes and all related structures Pupils: Equal, round and reactive pupils present Neck: Neck: Yes normal visual inspection Chest: Chest palpation & inspection: normal inspection of the chest Resp: Effort & Inspection: normal respiratory effort Auscultation: clear to auscultation bilaterally Cardio: Rate: regular rate Rhythm: regular rhythm Peripheral pulses: Peripheral pulses 2+ throughout GI: Inspection: Yes normal to inspection Palpation (GI): Soft to palpation and nontender Auscultation: normal bowel sounds Back/Spine/Pelvis: Other: +lumbar mid spine tenderness with no chi p offs or deformities. Lumbar soft tissue tenderness bilaterally. Pain is worsened with bilateral straight leg raise. Pain is worsened with flexion and extension lumbar spine. Thoracic/Lumbar Spine: thoracic and lumbar spine normal to inspection Skin: General skin exam: no rashes or lesions noted Neuro: General: patient oriented x3, moves all extremities, no focal motor deficits and normal sensation to monofilament Cranial nerves: Yes Equal, round and reactive pupils present Cognition (Neuro): normal cognition Speech: No Abnormal speech present Gait exam (Neuro): Normal gait present Motor exam (neuro): 5/5 motor strength present throughout Sensory Exam: Normal double simultaneous stimulation for sensation Deep tendon reflexes (DTR's): Right patellar reflex intensity grade: 2+ and Left patellar reflex intensity grade: 2+ Extrem: General: Yes normal to inspection Course Course Course Narrative: This is an RME performed by Manuel Kirkpatrick CNP: Additional HPI, ROS, PE not included below will be deferred to primary provider. Patient is a 63-year-old female presenting to emergency department for evaluation of Diffuse low back pain x2 days, denies precipitating injury, symptoms. Exam: Diffuse tenderness upon palpation Plan: XR, urinalysis Reevaluation(s) Reevaluation #1: x-ray shows arthritic changes. Urine is negative for infection. Pain is improved after receiving Toradol. Will discharge patient home with supportive measures. Reviewed worrisome signs and symptoms of when to return to the emergency room. Comfortable plan for discharge home. Medications Administered Discontinued Medications Generic Name Dose Route Start Last Admin Trade Name Freq PRN Reason Stop Dose Admin Ketorolac Tromethamine 30 mg 04/10/24 15:34 04/10/24 15:39 Ketorolac Tromethamine 30 Mg/Ml Vial IM 04/10/24 15:35 30 mg ONCE ONE Administration Medical Decision Making Medical Decision Making MDM Narrative: 63 year old female with PMHX hypertension, diet-controlled diabetes, GERD, gastritis, history of diverticulitis Here with complaints of lower back pain for the last 2 days with no known injury or trauma. Pain is worsened with movement. No radiation of pain. No associated numbness, tingling, weakness of lower extremities. No numbness in the groin. No bowel or bladder incontinence. No fevers or chills. No night sweats, weight loss, IV drug abuse. Has tried Tylenol home with continued pain. +lumbar mid spine tenderness with no step offs or deformities. Lumbar soft tissue tenderness bilaterally. Pain is worsened with bilateral straight leg raise. Pain is worsened with flexion and extension lumbar spine. Normal neuro exam with no focal deficits. No red flag symptoms. Will check x-rays, check urine sample, provide analgesia Differential Diagnosis Differential Diagnoses: The differential diagnosis associated with the presentation includes lumbar strain, lumbar muscle spasm, pyelonephritis, renal colic, UTI low suspicion for AAA, ACS with gradual onset of symptoms low suspicion for cord compression, cauda equina, epidural abscess, malignancy based on above Admission/Observation Consideration of admission/observation: Escalation of care including admission/observation considered Lab Data [facility] Lab Attestation statement: I reviewed the patient's lab results. Labs: Lab Results 04/10/24 Range/Units 15:45 Urine Color Yellow Urine Appearance Clear Urine pH 6.0 (5.0-9.0) Ur Specific [place] 1.020 (1.005-1.025) Urine Protein Negative (Neg-Trace) mg/dL Urine Glucose (UA) Negative (Negative) mg/dL Urine Ketones Negative (Negative) mg/dL Urine Blood Negative (Negative) Urine Nitrite Negative (Negative) Ur Leukocyte Esterase Trace H (Negative) Urine RBC 0-2 (0-2) /HPF Urine WBC 0-5 (0-5) /HPF Ur Squamous Epith Cells 0-2 (0-2) /HPF Other Crystals Present Urine Bacteria Trace (None Seen) Hyaline Casts 0-2 (0-2) /LPF Independent Interpretation I performed an independent interpretation of an: Plain X-Ray Interpretation: I independently viewed the x-ray and agree with the radiology report Radiology Impression Discussion of test interpretation with radiology: I have reviewed the radiologist's reading. Radiologist Impression: [address] [address] XRay Report Signed Patient: Sridevi Pruitt I MR#: [id number] : 1960 Acct:[id number] Age/Sex: 63 / F ADM Date: 04/10/24 Loc: HO.ED Attending Dr: Ordering Physician: Blanca Kirkpatrick CNP Date of Service: 04/10/24 Procedure(s): XR lumbar spine 2-3V Accession Number(s): [id number] cc: Blanca Kirkpatrick CNP; Libra Barone MD~ EXAMINATION: XR LUMBOSACRAL SPINE CLINICAL INFORMATION: Low back pain COMPARISON: None available. TECHNIQUE: Three views of the lumbosacral spine. FINDINGS: There is normal lumbar lordosis. The vertebral heights and alignment is normal. There is loss of L5-S1 disc height. Rest the disc heights are normal. No visible acute fracture, dislocation or subluxation seen. No aggressive lytic or sclerotic process seen. XR/XR lumbar spine 2-3V IMPRESSION: Mild degenerative disc changes L5-S1 disc level. No visible acute fracture or dislocation seen. Discharge Plan Discharge Clinical Impression: Strain of lumbar region Patient Disposition: Home, Self-Care Instructions: Acute Low Back Pain (ED) Additional Instructions: Your x-rays shows arthritis your urine shows no signs of infection No heavy lifting or bending Heat or ice to the affected area Gentle stretching Follow-up with your doctor for any continued symptoms. Take the medications as prescribed Return for worsening symptoms Prescriptions: New cyclobenzaprine 10 mg tablet 10 mg PO TID PRN (Reason: muscle spasm) Qty: 15 0RF naproxen 500 mg tablet 500 mg PO BID PRN (Reason: pain) Qty: 30 0RF lidocaine [Lidoderm] 5 % adhesive patch,medicated 1 patch topical DAILY Qty: 15 0RF Rx Instructions: leave on most painful area for up to 12 hrs No Action gabapentin 100 mg capsule 1 cap PO BEDTIME fluoxetine [Prozac] 20 mg capsule 2 cap PO QAM prazosin 2 mg capsule 2 cap PO BEDTIME prednisone 20 mg tablet 40 mg PO QAM doxycycline hyclate 100 mg capsule 100 mg PO BID 10 Days Qty: 20 0RF loratadine 10 mg tablet 10 mg PO QAM PRN (Reason: allergies) fluticasone propionate [Flovent HFA] 220 mcg/actuation HFA aerosol inhaler 1 puff inhalation BID atenolol 25 mg tablet 25 mg PO QAM lisinopril 5 mg tablet 5 mg PO QAM fluticasone propionate 50 mcg/actuation spray,suspension 2 spray intranasal DAILY albuterol sulfate [Ventolin HFA] 90 mcg/actuation HFA aerosol inhaler 2 puff inhalation Q4-6H PRN levothyroxine 75 mcg tablet 75 mcg PO QAM sertraline 100 mg tablet 150 mg PO QAM bupropion HCl 300 mg tablet extended release 24 hr 300 mg PO QAM metoclopramide HCl [Reglan] 10 mg tablet 10 mg PO .tidac Qty: 90 6RF pantoprazole 40 mg tablet,delayed release (DR/EC) 40 mg PO BID Qty: 60 6RF simethicone 180 mg capsule 180 mg PO QID 30 Days Qty: 120 6RF Rx Instructions: after meals Linzess 72 mcg capsule 72 mcg PO .q2pm Qty: 30 6RF dicyclomine 20 mg tablet 20 mg PO TID Qty: 90 6RF Referrals: Libra Barone MD [Primary Care Provider] - 1 week Interventions: ED Discharge Assessment Last Done: 04/10/24 16:38 Discharge Date/Time: 04/10/24 16:39 Print Language: Swazi
[2024-04-10 13:04] VITALS: BP 126/75; PULSE 57; RESP 20; TEMP 36; O2SAT 95; BMI 35.6
[2024-04-10] MEDS: Ketorolac Tromethamine 30 MG/ML VIAL IM (15:39)
--- NOTE | 2024-04-10 15:50 | PC.NURSE ---
pt medicated for pain, urine obtained and sent
[2024-04-10 16:02] LABS: Appearance Urine Clear; Color Urine Yellow; Glucose Urine UA Negative (Negative); Leukocyte Esterase Urine Trace (Negative); Nitrite Urine Negative (Negative); UMIC TRIGGER UACC YES; Urine Blood Negative (Negative); Urine Ketones Negative (Negative); Urine Protein Negative (Neg-Trace)
[2024-04-10 16:16] LABS: Bacteria Urine Trace (None Seen); Hyaline Casts Urine 0-2 /LPF (0-2); Other Crystals Urine Present; RBC Urine 0-2 /HPF (0-2); Squamous Epithelial Cell Urine 0-2 /HPF (0-2); WBC Urine 0-5 /HPF (0-5)
[2024-04-10 16:38] VITALS: BP 121/68; PULSE 62; RESP 20; TEMP 36.3; O2SAT 96
== END 2024-04-10 16:39 | disposition home or self-care (01) ==
PROVIDERS: Nurse Practitioner Family; Emergency Provider Emergency Medicine; PCP Family Medicine
DX: S39.012A Strain of muscle, fascia and tendon of lower back, initial encounter (principal); X58.XXXA Exposure to other specified factors, initial encounter; Y93.9 Activity, unspecified; Y92.9 Unspecified place or not applicable; Y99.9 Unspecified external cause status; E11.9 Type 2 diabetes mellitus without complications; I10 Essential (primary) hypertension; K21.9 Gastro-esophageal reflux disease without esophagitis; F17.210 Nicotine dependence, cigarettes, uncomplicated; Z79.899 Other long term (current) drug therapy
CPT/HCPCS: 72100; 81001; 81003; 96372; 99283; 99284; J1885

== ENCOUNTER 2024-05-02 06:50 | Emergency (ER) | payer MEDICAID, SELFPAY ==
--- NOTE | ~2024-05-02 | CT_ITS ---
EXAMINATION: CT ABDOMEN AND PELVIS WITH CONTRAST CLINICAL INFORMATION: Left-sided tenderness COMPARISON: CT abdomen pelvis 07/17/2023 TECHNIQUE: Multidetector volumetric images were obtained from the superior aspect of the liver through the pubic symphysis following administration 85 mL of Omnipaque 350 intravenous contrast. Sagittal and coronal reformatted images were obtained on the technologist's workstation. Oral contrast: No This CT examination was performed using dose optimization techniques as appropriate, variously including the following: *Automated exposure control *Adjustment of mA and/or kV according to patient size (this includes techniques or standardized protocols for targeted exams where dose is matched to indication/reason for exam; i.e. extremities or head) *Use of iterative reconstruction technique DLP: 688 mGy-cm FINDINGS: LUNG BASES: Mild emphysematous changes are seen along with bronchial thickening unchanged from prior. LIVER, GALLBLADDER, AND BILIARY TREE: The liver is normal in size, shape, and attenuation. No focal hepatic lesion or biliary ductal dilatation is present. The gallbladder is unremarkable with no evidence of radiopaque gallstones, gallbladder wall thickening, or obvious pericholecystic inflammatory changes. PANCREAS: Unremarkable. SPLEEN: Mildly prominent spleen measuring 12.3 cm in greatest transverse dimension ADRENAL GLANDS: Unremarkable. KIDNEYS AND URETERS: The kidneys are normal in size, shape, and attenuation. No hydronephrosis, hydroureter, or calculi seen. No perinephric stranding. BLADDER: Unremarkable. GASTROINTESTINAL TRACT: There is colonic diverticulosis. In the mid descending colon there is a new area of thickening with pericolonic inflammatory change and thickening of the anterior pararenal and lateroconal fascia. No extraluminal air is seen. No drainable fluid collections. The small and large bowel are otherwise unremarkable. The appendix is unremarkable. ABDOMINAL WALL: No significant hernia is appreciated. LYMPH NODES: Normal. VASCULAR: Unremarkable. PELVIC VISCERA: A retroverted uterus is present which contains a 2.4 cm lipoma. An abnormal adnexal mass is not seen. OSSEOUS STRUCTURES: Unremarkable. CT/CT abdomen pelvis w IV con IMPRESSION: 1. Acute uncomplicated diverticulitis involving the mid descending colon. 2. Incidental note made of mild splenomegaly, uterine lipoma and mild emphysematous changes in the lung bases. Fleischner guidelines were followed.
[2024-05-02 06:56] VITALS: BP 143/76; PULSE 53; RESP 20; TEMP 36.6; O2SAT 97; BMI 36.6
[2024-05-02 07:15] LABS: MANUAL DIFF FLAG NO
[2024-05-02 07:17] LABS: Basophils Percent Auto 0.3 % (0-2); Eosinophils Absolute Auto 0.2 X10*3/uL (0.0-0.4); Eosinophils Percent Auto 1.5 % (0-4); Hematocrit 39.2 % (37.0-47.0); Hemoglobin 12.7 g/dl (12.0-16.0); Imm Gran Abs Auto 0.08 X10*3/uL (0.00-0.03); Imm Gran Pct Auto 0.6 % (0.0-0.4); Lymphocytes Absolute Auto 2.3 X10*3/uL (1.2-4.9); Lymphocytes Percent Auto 18.1 % (20-40); Mean Corpuscular HGB Conc 32.4 g/dl (31.0-35.0); Mean Corpuscular Hemoglobin 29.7 pg (27.0-33.0); Mean Corpuscular Volume 91.8 fL (80.0-98.0); Mean Platelet Volume 10.8 fL (9.4-12.3); Monocytes Absolute Auto 0.7 X10*3/uL (0.1-1.2); Monocytes Percent Auto 5.4 % (2-11); Neutrophils Absolute Auto 9.4 x10*3/uL (2.0-8.3); Neutrophils Percent Auto 74.1 % (45-73); Platelet Count 271 X10*3/uL (160-400); Red Blood Count 4.27 X10*6/uL (4.20-5.50); Red Cell Distribution Width 14.2 % (11.0-16.0); White Blood Count 12.7 X10*3/uL (4.8-10.8)
[2024-05-02 07:23] LABS: Appearance Urine Clear; Color Urine Yellow; Glucose Urine UA Negative (Negative); Leukocyte Esterase Urine Small (1+) (Negative); Nitrite Urine Negative (Negative); UMIC TRIGGER UACC YES; Urine Blood Trace (Negative); Urine Ketones Negative (Negative); Urine Protein Negative (Neg-Trace)
[2024-05-02 07:35] LABS: Bacteria Urine Trace (None Seen); Hyaline Casts Urine 0-2 /LPF (0-2); RBC Urine 0-2 /HPF (0-2); Squamous Epithelial Cell Urine 0-2 /HPF (0-2); UACC Culture Trigger YES; WBC Urine 0-5 /HPF (0-5)
[2024-05-02 07:45] LABS: Alanine Aminotransferase 11 U/L (0-31); Albumin Level 3.7 g/dL (3.5-5.0); Alkaline Phosphatase 85 U/L (39-117); Anion Gap 15 (12-20); Aspartate Amino Transferase 14 U/L (5-31); Bilirubin Total 0.4 mg/dL (0.0-1.0); Blood Urea Nitrogen 12 mg/dL (9-16); Calcium 9.2 mg/dL (8.4-10.2); Carbon Dioxide 24 mmol/L (22-29); Chloride 103 mmol/L (96-108); Creatinine Clr Calc Pharmacy 82.6; Estimated Glomerular Filt Rate > 60; Glucose Random 209 mg/dL (60-115); Lipase 25 U/L (8-78); Potassium 4.3 mmol/L (3.3-5.1); Sodium 138 mmol/L (135-145); Total Protein 6.6 g/dL (6.5-8.0)
[2024-05-02 08:06] LABS: Influenza A PCR NEGATIVE (Negative); Influenza B PCR NEGATIVE (Negative); Resp Syncy Virus RNA Qual PCR NEGATIVE (Negative); SARS COV2 PCR INHOUSE NEGATIVE (Negative)
[2024-05-02] MEDS: ondansetron HCL 4 MG/2 ML VIAL IVPUSH (09:22)
[2024-05-02] MEDS: 0.9 % Sodium Chloride 1,000 ML 999 ML IV (09:23)
[2024-05-02] MEDS: Morphine Sulfate 4 MG/ML CARTRIDGE IVPUSH (09:23)
--- NOTE | 2024-05-02 09:27 | ED_ITS ---
HPI - Abdominal Pain General Chief Complaint: Abdominal Pain Stated Complaint: pain on left side Time Seen by Provider: 05/02/24 08:29 Source: patient and historical interpreter Mode of arrival: ambulatory Limitations: language barrier History of Present Illness ED Provider: Jayme Ayala NP HPI narrative: Patient is a 63-year-old [place]inamese-speaking female with history of erosive gastritis, leiomyoma, delayed gastric emptying, diverticulitis, hemorrhoids, chronic idiopathic constipation, GERD presenting to the emergency department with complaint of left-sided abdominal pain since yesterday. She reports nausea but denies vomiting. She denies diarrhea, does report some constipation but had a normal bowel movement yesterday. Denies fevers. Denies hematochezia or melena. Has not taken any [id number] medications at home for her symptoms. MD elicited complaint: abdominal pain Pertinent past history: constipation, diverticulitis and other Onset (ago): day(s) Pain Consistency: constant Location: LLQ Severity: severe Pain scale (0-10): 9 Quality: aching Radiation: none Migration to: no migration Exacerbating factors: movement Relieving factors: nothing Associated symptoms: nausea and constipation Related Data Home Medications ?Medication ?Instructions ?Recorded ?Confirmed fluoxetine 20 mg capsule (Prozac) 2 cap PO QAM 06/10/21 12/01/23 gabapentin 100 mg capsule 1 cap PO BEDTIME 06/10/21 12/01/23 prazosin 2 mg capsule 2 cap PO BEDTIME 06/10/21 12/01/23 levothyroxine 75 mcg tablet 75 mcg PO QAM 05/23/22 12/01/23 sertraline 100 mg tablet 150 mg PO QAM 05/23/22 12/01/23 albuterol sulfate 90 mcg/actuation 2 puff inhalation Q4-6H PRN 03/24/23 12/01/23 aerosol inhaler (Ventolin HFA) atenolol 25 mg tablet 25 mg PO QAM 03/24/23 12/01/23 fluticasone propionate 220 1 puff inhalation BID 03/24/23 12/01/23 mcg/actuation HFA aerosol inhaler (Flovent HFA) fluticasone propionate 50 2 spray intranasal DAILY 03/24/23 12/01/23 mcg/actuation nasal spray,suspension lisinopril 5 mg tablet 5 mg PO QAM 03/24/23 12/01/23 loratadine 10 mg tablet 10 mg PO QAM PRN allergies 03/24/23 12/01/23 bupropion HCl 300 mg 24 hr tablet, 300 mg PO QAM 08/26/23 12/01/23 extended release prednisone 20 mg tablet 40 mg PO QAM 11/13/23 12/01/23 Previous Rx's ?Medication ?Instructions ?Recorded doxycycline hyclate 100 mg capsule 100 mg PO BID 10 days #20 caps 09/17/23 dicyclomine 20 mg tablet 20 mg PO TID #90 tabs 11/27/23 linaclotide 72 mcg capsule 72 mcg PO .q2pm #30 caps 11/27/23 (Linzess) metoclopramide HCl 10 mg tablet 10 mg PO .tidac #90 tabs 11/27/23 (Reglan) pantoprazole 40 mg tablet,delayed 40 mg PO BID #60 tabs 11/27/23 release simethicone 180 mg capsule 180 mg PO QID 30 days #120 caps 11/27/23 cyclobenzaprine 10 mg tablet 10 mg PO TID PRN muscle spasm #15 04/10/24 tabs lidocaine 5 % topical patch 1 patch topical DAILY #15 ea 04/10/24 (Lidoderm) naproxen 500 mg tablet 500 mg PO BID PRN pain #30 tabs 04/10/24 amoxicillin 875 mg-potassium 1 tab PO BID #20 tabs 05/02/24 clavulanate 125 mg tablet dicyclomine 10 mg capsule 10 mg PO TID #10 caps 05/02/24 Allergies Allergy/AdvReac Type Severity Reaction Status Date / Time No Known Allergies Allergy Verified 05/02/24 06:58 [No Known Allergies*] Review of Systems Review of Systems As per HPI. Yes all other systems are reviewed and are negative Constitutional: Reports as per HPI PMFSH Past Medical History Medical History Smoker Bacterial vaginosis Hypertension Tubular adenoma of colon LLQ abdominal pain 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 Gastritis Surgical History Hx of hernia repair History of esophagogastroduodenoscopy (EGD) Hx of colonoscopy Family History Family History Father Family history of prostate problems Colon cancer Mother Tumor Social History Social History Household Members: None Alcohol intake: never Patient Tobacco Use Status: Current everyday Tobacco user Cigarettes Per Day: 2 Smoked in Last 30 Days: Yes Use of substances other than those prescribed or required for medical reasons: No Advance Directives: No Advance Directives Information Provided: No Current occupational status: disabled Physical Exam ED Vital Signs: Vital Signs - 24 hr 05/02/24 06:56 05/02/24 11:17 Temperature 97.9 F Pulse Rate 53 51 Respiratory Rate 20 16 Blood Pressure 143/76 H 145/76 H Pulse Oximetry 97 97 Oxygen Delivery Method Room Air Room Air BMI result Body Mass Index 36.6 Vital signs have been reviewed and appear to be correct. Blood pressure mildly elevated. Heart rate normal. Respiratory rate normal. Temperature normal. Oxygen saturation normal. Const General: cooperative, healthy appearing and no acute distress Orientation/consciousness: oriented to person, oriented to place, oriented to time and patient oriented x3 Limitations: no limitations HENMT Head: Yes normocephalic and Yes atraumatic Ears: external ears normal General nose exam: Normal external nose present Face and sinus: Yes face symmetric Mouth: oropharynx normal and moist mucous membranes Throat: Yes uvula midline Eyes Pupils: Equal, round and reactive pupils present Neck Neck: Yes normal visual inspection and Yes supple Resp Effort & Inspection: normal respiratory effort and able to speak in complete sentences Auscultation: clear to auscultation bilaterally Cardio Rate: regular rate Rhythm: regular rhythm Heart sounds: S1 normal heart sound present and S2 normal heart sound present GI Palpation (GI): Soft to palpation, Tenderness to palpation present (GI) in the LLQ (LLQ to mid abd on L side), no guarding and No Rebound tenderness present Auscultation: normoactive bowel sounds General: Yes no CVA tenderness Back/Spine/Pelvis Back: no CVA tenderness Skin General skin exam: elasticity normal and turgor normal Neuro General: oriented to person, oriented to place, oriented to time, patient oriented x3, moves all extremities, no focal motor deficits and CN's II-XI intact bilaterally Cranial nerves: Yes Equal, round and reactive pupils present Cognition (Neuro): normal cognition Extrem General: Yes full ROM, Yes no pedal edema and Yes no calf tenderness Psych Mental Status: mental status grossly normal Affect: normal affect Thought process: Normal thought process present Medical Decision Making Medical Decision Making [facility] Narrative: Patient is a 63-year-old [place]in[place]e-speaking female with history of erosive gastritis, leiomyoma, delayed gastric emptying, diverticulitis, hemorrhoids, chronic idiopathic constipation, GERD presenting to the emergency department with complaint of left-sided abdominal pain since yesterday. On exam patient is awake, A+Ox3, VS WNL, afebrile, normal neurological exam without focal deficits, physical exam findings as above. Given reported symptoms and physical exam findings, initial differential includes diverticulitis, constipation, UTI. Labs notable for mild leukocytosis, no anemia, no other significant abnormalities. CT notable for acute uncomplicated diverticulitis of mid descending colon. My interpretation is in agreement with the radiologist's interpretation. Patient updated on results and all questions answered. Will treat patient with course of Augmentin. Feel patient is stable for outpatient treatment as she is tolerating p.o., advised Tylenol and ibuprofen as needed for discomfort. Instructed patient to follow up with her primary care provider. Return precautions discussed at bedside. Patient verbalized understanding of and agreement with plan. Assessment, discussion of results, questions, return precautions and plan interpreted at bedside by certified seismic interpreter. Differential Diagnosis Differential Diagnoses: The differential diagnosis associated with the presentation includes As per [facility]. Admission/Observation Consideration of admission/observation: Escalation of care including admission/observation considered Patient would have been admitted to the hospital had their work up had any findings where hospital admission was appropriate and their clinical presentation warranted hospital admission. Lab Data [facility] Lab Attestation statement: I reviewed the patient's lab results. As per [facility]. 05/02/24 07:08 05/02/24 07:08 Labs: Lab Results 05/02/24 05/02/24 Range/Units 07:08 07:16 WBC 12.7 H (4.8-10.8) X10*3/uL RBC 4.27 (4.20-5.50) X10*6/uL Hgb 12.7 (12.0-16.0) g/dl Hct 39.2 (37.0-47.0) % MCV 91.8 (80.0-98.0) fL MCH 29.7 (27.0-33.0) pg MCHC 32.4 (31.0-35.0) g/dl RDW 14.2 (11.0-16.0) % Plt Count 271 (160-400) X10*3/uL MPV 10.8 (9.4-12.3) fL Immature Gran % (Auto) 0.6 H (0.0-0.4) % Neut % (Auto) 74.1 H (45-73) % Lymph % (Auto) 18.1 L (20-40) % [place] % (Auto) 5.4 (2-11) % Eos % (Auto) 1.5 (0-4) % Baso % (Auto) 0.3 (0-2) % Lymph # (Auto) 2.3 (1.2-4.9) X10*3/uL [place] # (Auto) 0.7 (0.1-1.2) X10*3/uL Eos # (Auto) 0.2 (0.0-0.4) X10*3/uL Baso # (Auto) 0.0 (0.0-0.2) X10*3/uL Abs Immat Gran (auto) 0.08 H (0.00-0.03) X10*3/uL Absolute Neuts (auto) 9.4 H (2.0-8.3) x10*3/uL Absolute Nucleated RBC 0.000 (0.0-0.012) X10*3/uL Nucleated RBC % (auto) 0.0 (0.0-0.2) /100WBC Sodium 138 (135-145) mmol/L Potassium 4.3 (3.3-5.1) mmol/L Chloride 103 (96-108) mmol/L Carbon Dioxide 24 (22-29) mmol/L Anion Gap 15 (12-20) BUN 12 (9-16) mg/dL Creatinine 0.72 (0.5-1.4) mg/dL Estim Creat Clear Calc 82.6 Estimated GFR > 60 Random Glucose 209 H (60-115) mg/dL Calcium 9.2 (8.4-10.2) mg/dL Total Bilirubin 0.4 (0.0-1.0) mg/dL AST 14 (5-31) U/L ALT 11 (0-31) U/L Alkaline Phosphatase 85 (39-117) U/L Total Protein 6.6 (6.5-8.0) g/dL Albumin 3.7 (3.5-5.0) g/dL Lipase 25 (8-78) U/L Urine Color Yellow Urine Appearance Clear Urine pH 6.0 (5.0-9.0) Ur Specific [place] 1.020 (1.005-1.025) Urine Protein Negative (Neg-Trace) mg/dL Urine Glucose (UA) Negative (Negative) mg/dL Urine Ketones Negative (Negative) mg/dL Urine Blood Trace H (Negative) Urine Nitrite Negative (Negative) Ur Leukocyte Esterase Small (1+) H (Negative) Urine RBC 0-2 (0-2) /HPF Urine WBC 0-5 (0-5) /HPF Ur Squamous Epith Cells 0-2 (0-2) /HPF Urine Bacteria Trace (None Seen) Hyaline Casts 0-2 (0-2) /LPF Influenza Type A (PCR) NEGATIVE (Negative) Influenza Type B (PCR) NEGATIVE (Negative) RSV RNA Qual (PCR) NEGATIVE (Negative) SARS-CoV-2 RNA (RT-PCR) NEGATIVE (Negative) Independent Interpretation I performed an independent interpretation of an: CT Scan Interpretation: Uncomplicated diverticulitis Radiology Impression Discussion of test interpretation with radiology: I have reviewed the radiologist's reading. Radiologist Impression: CT/CT abdomen pelvis w IV con IMPRESSION: 1. Acute uncomplicated diverticulitis involving the mid descending colon. 2. Incidental note made of mild splenomegaly, uterine lipoma and mild emphysematous changes in the lung bases. Fleischner guidelines were followed. External Record Review External record reviewed: Inpatient record, Office record and Outpatient record Prescription Management I considered prescription management with: Antibiotic Medications Administered Discontinued Medications Generic Name Dose Route Start Last Admin Trade Name Freq PRN Reason Stop Dose Admin Sodium Chloride 1,000 mls @ 999 mls/hr 05/02/24 09:15 05/02/24 10:39 Ns IV 05/02/24 10:15 Infused .Q1H1M BRIANDA Infusion Iohexol 100 ml 05/02/24 09:41 05/02/24 09:42 Iohexol 350 Mg/Ml 100 Ml Infus..Btl IV 05/02/24 09:42 85 ml ONCE ONE Administration Morphine Sulfate 4 mg 05/02/24 09:11 05/02/24 09:23 Morphine Sulfate 4 Mg/Ml Cartridge IVPUSH 05/02/24 09:12 4 mg ONCE ONE Administration Protocol Ondansetron HCl 4 mg 05/02/24 09:11 05/02/24 09:22 Ondansetron Hcl 4 Mg/2 Ml Vial IVPUSH 05/02/24 09:12 4 mg ONCE ONE Administration Discharge Plan Discharge Clinical Impression: Diverticulitis Patient Disposition: Home, Self-Care Instructions: Diverticulitis (ED), Diverticulitis Diet (ED) Additional Instructions: You were evaluated in the emergency department today for abdominal pain. Your CT scan showed that your pain is due to diverticulitis which is an infection of your intestines. You are being prescribed an antibiotic, please take this medication as prescribed. You are also being prescribed Bentyl for pain, please take this as prescribed. Please follow-up with your primary care provider. Return to the emergency department if you develop increasing pain, persistent vomiting, fever not controlled with Tylenol or any other concerning symptoms. Prescriptions: New amoxicillin-pot clavulanate 875-125 mg tablet 1 tab PO BID Qty: 20 0RF dicyclomine 10 mg capsule 10 mg PO TID Qty: 10 0RF No Action gabapentin 100 mg capsule 1 cap PO BEDTIME fluoxetine [Prozac] 20 mg capsule 2 cap PO QAM prazosin 2 mg capsule 2 cap PO BEDTIME prednisone 20 mg tablet 40 mg PO QAM doxycycline hyclate 100 mg capsule 100 mg PO BID 10 Days Qty: 20 0RF cyclobenzaprine 10 mg tablet 10 mg PO TID PRN (Reason: muscle spasm) Qty: 15 0RF naproxen 500 mg tablet 500 mg PO BID PRN (Reason: pain) Qty: 30 0RF lidocaine [Lidoderm] 5 % adhesive patch,medicated 1 patch topical DAILY Qty: 15 0RF Rx Instructions: leave on most painful area for up to 12 hrs loratadine 10 mg tablet 10 mg PO QAM PRN (Reason: allergies) fluticasone propionate [Flovent HFA] 220 mcg/actuation HFA aerosol inhaler 1 puff inhalation BID atenolol 25 mg tablet 25 mg PO QAM lisinopril 5 mg tablet 5 mg PO QAM fluticasone propionate 50 mcg/actuation spray,suspension 2 spray intranasal DAILY albuterol sulfate [Ventolin HFA] 90 mcg/actuation HFA aerosol inhaler 2 puff inhalation Q4-6H PRN levothyroxine 75 mcg tablet 75 mcg PO QAM sertraline 100 mg tablet 150 mg PO QAM bupropion HCl 300 mg tablet extended release 24 hr 300 mg PO QAM metoclopramide HCl [Reglan] 10 mg tablet 10 mg PO .tidac Qty: 90 6RF pantoprazole 40 mg tablet,delayed release (DR/EC) 40 mg PO BID Qty: 60 6RF simethicone 180 mg capsule 180 mg PO QID 30 Days Qty: 120 6RF Rx Instructions: after meals Linzess 72 mcg capsule 72 mcg PO .q2pm Qty: 30 6RF dicyclomine 20 mg tablet 20 mg PO TID Qty: 90 6RF Print Language: Surinamese
[2024-05-02] MEDS: iohexoL 350 MG/ML 100 ML INFUS..BTL IV (09:42)
--- NOTE | 2024-05-02 10:36 | PC.NURSE ---
Patient heard yelling from room. Upon entering room patient`s IV noted to be dislodged with NS infusing on to floor. Patient stating she doesnt know how IV was removed. VIBRATION TECHNICIAN notified, stating not to start new IV at this time, awaiting CT results
--- NOTE | 2024-05-02 11:11 | PC.NURSE ---
Assumed care of this patient at 1100, upon reviewing orders patient's urine culture had not been received by lab from order from 0735 this am, called [facility], spoke to Ignacio, confirmed they do have the needed specimen and will receive the specimen soon.
[2024-05-02 11:17] VITALS: BP 145/76; PULSE 51; RESP 16; O2SAT 97
[2024-05-02 12:58] VITALS: BP 136/51; PULSE 54; RESP 16; TEMP 36.6; O2SAT 98
== END 2024-05-02 12:59 | disposition home or self-care (01) ==
PROVIDERS: Emergency Provider Emergency Medicine; PCP Family Medicine
DX: K57.92 Diverticulitis of intestine, part unspecified, without perforation or abscess without bleeding (principal); E11.9 Type 2 diabetes mellitus without complications
CPT/HCPCS: 0241U; 74177; 80053; 81001; 83690; 85025; 87086; 96361; 96374; 96375; 99284; J2270; J2405; Q9967

== ENCOUNTER 2024-06-15 13:49 | Outpatient (REF) | payer MEDICARE, MEDICAID, SELFPAY | END 2024-06-15 13:50 | disposition home or self-care (01) | LOC: HO.SH 13:49 | PROVIDERS: Visit Provider Family Medicine | DX: Z01.118 Encounter for examination of ears and hearing with other abnormal findings (principal); H90.3 Sensorineural hearing loss, bilateral | CPT/HCPCS: 92557; 92567; 92588 ==

== ENCOUNTER 2024-06-21 09:52 | Outpatient (AMB) | payer MEDICARE, MEDICAID, SELFPAY ==
[2024-06-21 10:15] VITALS: BP 112/70; BMI 36.3
--- NOTE | 2024-06-21 10:15 | MHC.OFFVIS ---
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 Complaining of an episode of vaginal spotting in addition to vaginal discharge associated with foul odor, no itching Last Pap/HPV was negative in 06/13 this was preceded by negative Pap/HPV positive in 03/13 Last Mammogram was BI-RADS 2 in 03/15 Last Colonoscopy was in 11/14, the recommendation was to repeat in 3-5 years No previous DEXA scan PFSH Medical History Smoker Bacterial vaginosis Hypertension Tubular adenoma of colon LLQ abdominal pain 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 Gastritis Surgical History Hx of hernia repair History of esophagogastroduodenoscopy (EGD) Hx of colonoscopy Family History Father Family history of prostate problems Colon cancer Mother Tumor Social History Household Members: None Alcohol intake: never Patient Tobacco Use Status: Current everyday Tobacco user Cigarettes Per Day: 2 Current occupational status: disabled Female Reproductive History Menstrual Age of Menarche: 13 Menopause type: natural Total pregnancies: 2 Full term: 2 Number of Living Children: 2 Date of last pap smear: 06/05/22 Date of Mammogram: 02/25/23 Review of Systems Const All systems reviewed & are unremarkable except as noted in HPI and below Card Reports as per HPI Resp Reports as per HPI GI Reports as per HPI and Reports no additional complaints Reports as per HPI Physical Exam Vital Signs: Last Vital Signs BP 112/70 06/21/24 10:15 BMI result Body Mass Index 36.3 Const General: cooperative, healthy appearing and comfortable Chest Chest palpation & inspection: normal inspection of the chest and normal palpation of entire chest wall Breast/axilla inspection: normal inspection of the breasts and normal inspection of the axillae Breast/axilla palpation: normal palpation of the breasts, normal palpation of the axillae and no axillary lymphadenopathy Resp Effort & Inspection: normal respiratory effort Auscultation: clear to auscultation bilaterally Percussion: percussion normal Cardio Palpation: normal PMI Rate: regular rate Rhythm: regular rhythm Heart sounds: no murmurs and no rubs Peripheral pulses: Peripheral pulses 2+ throughout GI Inspection: Yes normal to inspection Palpation (GI): Soft to palpation, nontender, no guarding, not rigid and No hepatosplenomegaly present Percussion: Yes normal to percussion Auscultation: normal bowel sounds Rectal Exam - Female: deferred General: Yes bladder normal to palpation External Female Exam: No lesion Speculum Exam - Vagina: normal appearance of the vagina, normal palpation, normal vaginal discharge and not erythematous Speculum Exam - Cervix: normal appearance of the cervix and normal palpation Bimanual exam- vagina & uterus: normal bimanual exam, normal palpation, uterine size normal, bladder normal to palpation, consistency normal and normal palpation Bimanual Exam- Adnexa, other: normal adnexae, no masses and no tenderness Assessment & Plan Assessment & Plan (1) Well woman exam: Code(s): Z01.419 - Encounter for gynecological examination (general) (routine) without abnormal findings Category: Medical Plan: Co testing done Counseled the patient about the recommended dietary allowance of 1200 mg of Calcium & 800 IU of vitamin D. Mammogram ordered. Will order DEXA scan . The patient was instructed to perform monthly self-breast exams and to schedule a 2 week DEXA scan follow-up appointment and an annual exam in a year; All questions answered and the patient verbalized understanding. (2) Postmenopausal bleeding: Code(s): N95.0 - Postmenopausal bleeding Category: Medical Plan: Discussed with the patient the differential diagnosis of post menopausal bleeding with normal pelvic exam including but not limited to, endometrial hyperplasia, cancer, polyps and other causes; co testing done, recommended ultrasound to measure the endometrial stripe; discussed with the patient that if the endometrial thickness is 4 mm or less the negative predictive value of endometrial pathology is 99%, otherwise If endometrial thickness is more than 4 mm will proceed with endometrial sampling versus hysteroscopy D&C polypectomy depending on the ultrasound findings. Instructed the patient to schedule an ultrasound with a follow-up appointment in 2 weeks. All questions answered, the patient verbalized understanding and agreed with the plan. This note was generated with a voice recognition program. Some errors may have been overlooked during the review of this note. Sometimes these errors may affect the content or meaning of a given sentence. (3) Bacterial vaginosis: Code(s): N76.0 - Acute vaginitis; B96.89 - Other specified bacterial agents as the cause of diseases classified elsewhere Category: Medical Plan: GC and chlamydia cultures with BV panel taken. Will treat with Flagyl 500 mg p.o. b.i.d. x 7 days, Instructions given to the patient to refrain from sexual activity or to use condoms consistently and correctly during the BV treatment regimen, not to douch, it might increase the risk for relapse, and to call if symptoms persist or recur. Orders: Orders US pelvic and transvaginal Today N95.0 - Postmenopausal bleeding MM tomosynthesis screening BI Today Z12.31 - Encounter for screening mammogram for malignant neoplasm of breast XR DEXA axial skeleton Today Z78.0 - Asymptomatic menopausal state Medications: New metronidazole 500 mg PO BID 7 days 14 tabs 0RF Coding Level of Care Code Est Pt Prev Care >65y(09761) Diagnoses Well woman exam Z01.419 Postmenopausal bleeding N95.0 Bacterial vaginosis N76.0; B96.89
== END 2024-06-21 10:51 | disposition home or self-care (01) ==
LOC: HO.HWS 09:52
PROVIDERS: PCP Family Medicine; Visit Provider Obstetrics & Gynecology
DX: Z01.419 Encounter for gynecological examination (general) (routine) without abnormal findings (principal); N95.0 Postmenopausal bleeding; N76.0 Acute vaginitis; B96.89 Other specified bacterial agents as the cause of diseases classified elsewhere
CPT/HCPCS: 99214; G0101; Q0091

== ENCOUNTER 2024-06-21 09:52 | Outpatient (REF) | payer MEDICARE, MEDICAID, SELFPAY ==
[2024-06-21 16:28] LABS: Bacterial Vaginosis PCR NEGATIVE (Negative); Candida Group PCR DETECTED (Not Detect); Candida glab krusei PCR NOT DETECTED (Not Detect); Trichomonas vaginalis PCR NOT DETECTED (Not Detect)
[2024-06-21 17:10] LABS: CT PCR NOT DETECTED (Not Detect.); NG PCR NOT DETECTED (Not Detect.)
[2024-06-23 09:28] LABS: HPV mRNA E6/E7 Not Detected (Not Detected)
== END 2024-06-21 09:53 | disposition home or self-care (01) ==
LOC: HO.LNP 09:52
PROVIDERS: PCP Family Medicine; Visit Provider Obstetrics & Gynecology
DX: Z01.419 Encounter for gynecological examination (general) (routine) without abnormal findings (principal); Z11.51 Encounter for screening for human papillomavirus (HPV); N95.0 Postmenopausal bleeding; N76.0 Acute vaginitis; B96.89 Other specified bacterial agents as the cause of diseases classified elsewhere
CPT/HCPCS: 0352U; 87491; 87591; 87624; 88175; 99212; G0101; Q0091

== ENCOUNTER 2024-06-30 10:03 | Outpatient (REF) | payer MEDICARE, MEDICAID, SELFPAY ==
--- NOTE | ~2024-06-30 | US_ITS ---
EXAMINATION: US PELVIS CLINICAL INFORMATION: Postmenopausal bleeding. COMPARISON: CT abdomen and pelvis of 05/02/2024, pelvic ultrasound of 02/11/2023. TECHNIQUE: Transabdominal and transvaginal ultrasound images of the pelvis FINDINGS: Uterus is retroverted and measures 7.2 x 4.0 x 4.1 cm. Uterine volume 61.8 mL. Right ovary not visualized. Limited visualization due to bowel gas. Endometrial thickness is 2 mm. Left ovary measures 2.2 x 1.0 x 2.3 cm, volume 2.7 mL. No significant free fluid. Redemonstration of a 2.4 x 2.2 x 2.7 cm echogenic uterine lesion, previously 2.3 x 2.2 x 2.3 cm on pelvic ultrasound of 02/11/2023. 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 US/US pelvic and transvaginal IMPRESSION: 1. Redemonstration of a 2.4 x 2.2 x 2.7 cm echogenic uterine lesion, previously 2.3 x 2.2 x 2.3 cm on pelvic ultrasound of 02/11/2023. 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 2. Endometrial thickness is 2 mm. 3. Right ovary not visualized. 4. Unremarkable left ovary.
== END 2024-06-30 10:04 | disposition home or self-care (01) ==
LOC: HO.US 10:03
PROVIDERS: PCP Family Medicine; Visit Provider Obstetrics & Gynecology
DX: N95.0 Postmenopausal bleeding (principal)
CPT/HCPCS: 76830; 76856

== ENCOUNTER 2024-07-14 13:25 | Outpatient (REF) | payer MEDICARE, MEDICAID, SELFPAY ==
--- NOTE | ~2024-07-14 | MM_ITS ---
EXAMINATION: BONE DENSITOMETRY CLINICAL INDICATION: Asymptomatic menopausal state. COMPARISON: Baseline BD dated 08/22/2008. TECHNIQUE: Using a [employer] DXA System (software version: 13.1) manufactured by [employer], dual-energy x-ray absorptiometry was performed of the lumbar spine and left hip. The images are of good technical quality. Summary results are attached. FINDINGS: LEFT FEMUR, NECK: Current: BMD 0.917 g/cm2, Z-score 0.0, T-score -0.9, normal. Baseline: BMD 1.028 g/cm2. LEFT FEMUR, TOTAL: Current: BMD 1.004 g/cm2, Z-score 0.6, T-score 0.0, normal, 4.4% decrease from baseline (<5% change is not significant). Baseline: BMD 1.050 g/cm2. AP SPINE L1-L4: Current: BMD 1.355 g/cm2, Z-score 2.2, T-score 1.5, normal, 6.6% increase from baseline (<5% change is not significant). Baseline: BMD 1.271 g/cm2. IDENTIFIED RISK FACTORS: Low calcium intake, current smoker, menopause. HISTORY OF FRACTURE: None listed. MEDICATIONS: None listed. MM/XR DEXA axial skeleton IMPRESSION: 1. DIAGNOSIS: Normal bone density based on the lowest T-score value of -0.9 in the femoral neck applying World Health Organization criteria. 2. 10-YEAR FRACTURE RISK PREDICTION, FRAX: According to the guidelines, FRAX calculation should only be performed on patients in the osteopenia bone density category. Therefore, FRAX was not performed on this patient. 3. Treatment Recommendations: NOF guidelines recommend consideration for treatment in postmenopausal women and men age 50 and older presenting with the following: -A hip or vertebral (clinical or morphometric) fracture. -T-score less than or equal to -2.5 at the femoral neck or spine after appropriate evaluation to exclude secondary causes. -Low bone mass at the hip or spine and a 10-year fracture probability by FRAX of greater than or equal to 3% for hip fracture or greater than or equal to 20% for major osteoporotic fracture based on the [place] adapted WHO algorithm. 4. Other Recommendations: All treatment decisions require clinical judgment and consideration of individual patient factors, including patient preferences, comorbidities, previous drug use, risk factors not captured in the FRAX model (e.g. frailty, falls, vitamin D deficiency, increased bone turnover, interval significant decline in bone density) and possible under or overestimation of fracture risk by FRAX. FUTURE SCAN RECOMMENDATION: People with diagnosed cases of osteoporosis or at high risk for fracture should have regular bone mineral density tests. For patients eligible for Medicare, routine testing is allowed once every 2 years. The testing frequency can be increased to one year for patients who have rapidly progressing disease, those who are receiving or discontinuing medical therapy to restore bone mass, or have additional risk factors. Electronically signed by: Ivan Mccormick MD 07/20/2024 09:14 AM EDT
--- NOTE | ~2024-07-14 | MM_ITS ---
EXAMINATION: MM SCREENING DIGITAL BREAST TOMOSYNTHESIS, BILATERAL CLINICAL INFORMATION: Screening. Asymptomatic. COMPARISON: Mammography: Available priors TECHNIQUE: Digital breast tomosynthesis is performed in both the craniocaudal and mediolateral oblique views along with computer-aided detection (CAD). Synthesized 2D images are generated from the tomosynthesis. FINDINGS: The breasts are heterogeneously dense, which may obscure small masses (ACR BI-RADS breast composition Category c). Right marker clip. There are no significant masses, abnormal calcifications, or other abnormalities. MM/MM tomosynthesis screening BI IMPRESSION: No mammographic evidence of malignancy. ASSESSMENT: BI-RADS BI-RADS 2 - Benign Findings RECOMMENDATION: Routine annual mammography screening. 1 year F/U This examination should not preclude the clinical evaluation of a suspicious palpable abnormality. This patient's information was entered into a reminder system with a target due date for their next mammogram. Electronically signed by: Donna Mooney DO 08/11/2024 07:06 PM EDT
== END 2024-07-14 13:26 | disposition home or self-care (01) ==
LOC: HO.MAMMO 13:25
PROVIDERS: Visit Provider Obstetrics & Gynecology
DX: Z12.31 Encounter for screening mammogram for malignant neoplasm of breast (principal); Z13.820 Encounter for screening for osteoporosis; Z78.0 Asymptomatic menopausal state
CPT/HCPCS: 77063; 77067; 77080

== ENCOUNTER → 2024-07-14 13:45 | Outpatient (BNV) | payer MEDICARE, MEDICAID, SELFPAY | PROVIDERS: Visit Provider Internal Medicine | DX: Z12.31 Encounter for screening mammogram for malignant neoplasm of breast (principal) | CPT/HCPCS: 77063; 77067 ==

== ENCOUNTER 2024-08-04 14:34 | Outpatient (AMB) | payer OTHER, SELFPAY ==
--- NOTE | 2024-08-04 14:46 | A.OFFVIS_ITS ---
Vital Signs 08/04/24 15:03 Height 5 ft 2 in Weight 198 lb 6.656 oz BMI 36.3 Intake Visit Reasons: Dexa Results Crusher Screen Repairer Required: Yes Crusher Screen Repairer Language: Beekeeper Farmer Services: Crusher Screen Repairer Present (in person) Crusher Screen Repairer Name: Flory FELIZ Information Interpreted: non-clinical & clinical Accompanied by: Self / Same As Patient Allergies No Known Allergies [No Known Allergies*] Allergy (Verified 08/04/24 15:03) Post menopausal: Yes HPI Comments Details: The patient is presenting for follow up regarding DEXA scan results. T score @ spine and femoral Neck respectively were=1.5 /-0.9 and 10 year FRAX risk for severe osteoporosis and fracture was not calculated. PFSH Medical History Smoker Bacterial vaginosis Hypertension Tubular adenoma of colon LLQ abdominal pain 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 Gastritis Surgical History Hx of hernia repair History of esophagogastroduodenoscopy (EGD) Hx of colonoscopy Family History Father Family history of prostate problems Colon cancer Mother Tumor Social History Household Members: None Alcohol intake: never Patient Tobacco Use Status: Current everyday Tobacco user Cigarettes Per Day: 2 Current occupational status: disabled Female Reproductive History Menstrual Age of Menarche: 13 Review of Systems Const All systems reviewed & are unremarkable except as noted in HPI and below Reports as per HPI and Reports no additional complaints GI Reports no additional complaints Reports no additional complaints Physical Exam Vital Signs: BMI result Body Mass Index 36.3 Assessment & Plan Assessment & Plan (1) Osteopenia: Code(s): M85.80 - Other specified disorders of bone density and structure, unspecified site Category: Medical Plan: Discussed with the patient the DEXA results and FRAX risk. FRAX risk and T score showed no evidence of osteoporosis. Discussed with the patient all the options for osteoporosis prevention including lifestyle modifications including Ca+D supplements 1200 mg po qd/800 MIU, Weight bearing exercises and proteine supplements. The patient verbalized understanding and agreed plan will repeat DEXA in 2 years. Coding Level of Care Code Est Pt Level 3 (33411) Diagnoses Osteopenia M85.80
[2024-08-04 15:03] VITALS: BMI 36.3
== END 2024-08-04 15:14 | disposition home or self-care (01) ==
LOC: HO.HWS 14:35
PROVIDERS: PCP Family Medicine; Visit Provider Obstetrics & Gynecology
DX: M85.80 Other specified disorders of bone density and structure, unspecified site (principal)
CPT/HCPCS: 99213

== ENCOUNTER → 2024-08-04 14:34 | Outpatient (BNVA) | payer OTHER, SELFPAY | PROVIDERS: PCP Family Medicine; Visit Provider Obstetrics & Gynecology | DX: M85.80 Other specified disorders of bone density and structure, unspecified site (principal) | CPT/HCPCS: 99212 ==

== ENCOUNTER 2024-08-21 10:55 | Emergency (ER) | payer OTHER, SELFPAY ==
--- NOTE | ~2024-08-21 | XR_ITS ---
EXAMINATION: Right ankle and foot series CLINICAL INFORMATION: Fall. Fracture. COMPARISON: X-ray of the left foot February 2024 TECHNIQUE: 3 views of the left foot and 3 views of the left ankle. FINDINGS: Left foot and ankle: There is soft tissue prominence in the left ankle region which could reflect normal variation/body habitus or generalized edema. The bones joints and soft tissues are otherwise normal. XR/XR ankle LT min 3V IMPRESSION: 1. Soft tissue prominence in the left ankle region which could reflect normal variation/body habitus or generalized edema. 2. No fracture. Electronically signed by: Eduard Julian MD 08/21/2024 11:46 AM EDT
--- NOTE | ~2024-08-21 | XR_ITS ---
EXAMINATION: Right ankle and foot series CLINICAL INFORMATION: Fall. Fracture. COMPARISON: X-ray of the left foot February 2024 TECHNIQUE: 3 views of the left foot and 3 views of the left ankle. FINDINGS: Left foot and ankle: There is soft tissue prominence in the left ankle region which could reflect normal variation/body habitus or generalized edema. The bones joints and soft tissues are otherwise normal. XR/XR foot LT min 3V IMPRESSION: 1. Soft tissue prominence in the left ankle region which could reflect normal variation/body habitus or generalized edema. 2. No fracture. Electronically signed by: Eduard Julian MD 08/21/2024 11:46 AM EDT
[2024-08-21 10:59] VITALS: BP 127/60; PULSE 77; RESP 18; TEMP 37.2; O2SAT 95; BMI 218.9
--- NOTE | 2024-08-21 11:04 | ED_ITS ---
HPI - Extremity Injury (Lower) General Chief Complaint: Extremity Injury, Lower Stated Complaint: fall-l ankle inj Time Seen by Provider: 08/21/24 11:17 Source: patient Mode of arrival: wheelchair Limitations: no limitations History of Present Illness HPI Narrative: Patient is a 64-year-old female who presents emergency department for evaluation of left ankle pain. Reports a trip and fall last night. No head strike or loss of consciousness. Numbness tingling or cold sensation to the foot. Over the past week she has also been experiencing pain along the heel of her left foot Related Data Home Medications ?Medication ?Instructions ?Recorded ?Confirmed fluoxetine 20 mg capsule (Prozac) 2 cap PO QAM 06/10/21 12/01/23 gabapentin 100 mg capsule 1 cap PO BEDTIME 06/10/21 12/01/23 prazosin 2 mg capsule 2 cap PO BEDTIME 06/10/21 12/01/23 levothyroxine 75 mcg tablet 75 mcg PO QAM 05/23/22 12/01/23 sertraline 100 mg tablet 150 mg PO QAM 05/23/22 12/01/23 albuterol sulfate 90 mcg/actuation 2 puff inhalation Q4-6H PRN 03/24/23 12/01/23 aerosol inhaler (Ventolin HFA) atenolol 25 mg tablet 25 mg PO QAM 03/24/23 12/01/23 fluticasone propionate 220 1 puff inhalation BID 03/24/23 12/01/23 mcg/actuation HFA aerosol inhaler (Flovent HFA) fluticasone propionate 50 2 spray intranasal DAILY 03/24/23 12/01/23 mcg/actuation nasal spray,suspension lisinopril 5 mg tablet 5 mg PO QAM 03/24/23 12/01/23 loratadine 10 mg tablet 10 mg PO QAM PRN allergies 03/24/23 12/01/23 bupropion HCl 300 mg 24 hr tablet, 300 mg PO QAM 08/26/23 12/01/23 extended release Previous Rx's ?Medication ?Instructions ?Recorded linaclotide 72 mcg capsule 72 mcg PO .q2pm #30 caps 11/27/23 (Linzess) metoclopramide HCl 10 mg tablet 10 mg PO .tidac #90 tabs 11/27/23 (Reglan) pantoprazole 40 mg tablet,delayed 40 mg PO BID #60 tabs 11/27/23 release simethicone 180 mg capsule 180 mg PO QID 30 days #120 caps 11/27/23 cyclobenzaprine 10 mg tablet 10 mg PO TID PRN muscle spasm #15 04/10/24 tabs lidocaine 5 % topical patch 1 patch topical DAILY #15 ea 04/10/24 (Lidoderm) naproxen 500 mg tablet 500 mg PO BID PRN pain #30 tabs 04/10/24 metronidazole 500 mg tablet 500 mg PO BID 7 days #14 tabs 06/21/24 terconazole 0.8 % vaginal cream 1 appful vaginal BEDTIME 3 days 06/22/24 #20 grams Allergies Allergy/AdvReac Type Severity Reaction Status Date / Time No Known Allergies Allergy Verified 08/21/24 11:01 [No Known Allergies*] Review of Systems Review of Systems: Yes all other systems are reviewed and are negative PMFSH Past Medical History Attestation statement: The following information was validated with the patient. Source: old records reviewed Medical History Smoker Bacterial vaginosis Hypertension Tubular adenoma of colon LLQ abdominal pain 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 Gastritis Surgical History Hx of hernia repair History of esophagogastroduodenoscopy (EGD) Hx of colonoscopy Family History Family History Father Family history of prostate problems Colon cancer Mother Tumor Social History Social History Household Members: None Alcohol intake: never Patient Tobacco Use Status: Current everyday Tobacco user Cigarettes Per Day: 2 Current occupational status: disabled Physical Exam Vital Signs: Vital Signs: Last Vital Signs Temp 99.0 F 08/21/24 10:59 Pulse 77 08/21/24 10:59 Resp 18 08/21/24 10:59 BP 127/60 08/21/24 10:59 Pulse Ox 95 08/21/24 10:59 O2 Del Method Room Air 08/21/24 10:59 BMI result Body Mass Index 218.9 Appearance: Alert.?Oriented to person, place and time. No acute distress.?Normal affect. Neck: Normal inspection.? Neck supple.?? CVS: Heart sounds normal. Normal heart rate and rhythm.? Pulses normal.?? Respiratory: No respiratory distress.? Lung sounds clear to auscultation bilaterally?? Skin: Skin warm and dry.? Normal skin color.? No rashes or lesions. Extremities: Localized swelling primarily to the lateral malleolus, decreased AROM, calcaneal tenderness to palpation, 2+ DP/PT pulse. No erythema or warmth to the joint Neuro: Moves all extremities spontaneously. Sensation intact bilaterally. No focal neuro deficits. Ambulates with antalgic gait. Medications Administered Discontinued Medications Generic Name Dose Route Start Last Admin Trade Name Freq PRN Reason Stop Dose Admin Acetaminophen 975 mg 08/21/24 11:31 08/21/24 11:47 Acetaminophen 325 Mg Tablet PO 08/21/24 11:32 975 mg ONCE ONE Administration Ketorolac Tromethamine 15 mg 08/21/24 11:31 08/21/24 11:47 Ketorolac Tromethamine 15 Mg/Ml Vial IM 08/21/24 11:32 15 mg ONCE ONE Administration Medical Decision Making Medical Decision Making [facility] Narrative: Patient is a 64-year-old female who presents emergency department for evaluation of traumatic left ankle pain as per HPI. Overall well-appearing, nontoxic, afebrile. Left ankle is without erythema or warmth, though there is decreased AROM I suspect fracture/dislocation/brain to be most likely, low suspicion for septic arthritis. XR to be obtained to evaluate for osseous abnormality. Additionally, she has been experiencing calcaneal pain over the past week, so possible this is due to potentially calcaneal bone spur, plantar fasciitis Differential Diagnosis Differential Diagnoses: The differential diagnosis associated with the presentation includes (See narrative above) Independent Interpretation I performed an independent interpretation of an: Plain X-Ray (No acute fracture) Interpretation: Symptoms secondary to sprain, placed in a orthopedic boot, discussed conservative treatment and outpatient follow-up. All questions answered Radiology Impression Discussion of test interpretation with radiology: I have reviewed the radiologist's reading. Radiologist Impression: XR/XR ankle LT min 3V IMPRESSION: 1. Soft tissue prominence in the left ankle region which could reflect normal variation/body habitus or generalized edema. 2. No fracture. External Record Review External record reviewed: Outpatient record Prescription Management I considered prescription management with: Pain Medication (Acetaminophen/ibuprofen) Discharge Plan Discharge Clinical Impression: Left ankle sprain Patient Disposition: Home, Self-Care Instructions: Ankle Sprain (ED), Crutch Instructions (ED), R.I.C.E. Treatment (ED), Walking Boot (ED) Additional Instructions: X-ray today does not show any evidence of fracture You can take ibuprofen 200 mg, 3 tablets (600mg) every 6-8 hours as needed for pain, in addition to Tylenol 500 mg, 2 tablets (1,000mg) every 4-6 hours as needed for pain, but not to exceed 3 doses daily (3,000mg).? Be sure to rest, apply ice area for 10-15 minutes 3-4 times daily. You can wear the boot and put weight on the leg as tolerated, if this is too painful you may use the crutches as instructed. As discussed, for some people ankle sprains can take up to 6 weeks to fully heal. You are welcome to seek re-evaluation if you have new or worsening pain or new or worsening symptoms or concerns Prescriptions: No Action terconazole 0.8 % cream 1 appful vaginal BEDTIME 3 Days Qty: 20 0RF gabapentin 100 mg capsule 1 cap PO BEDTIME fluoxetine [Prozac] 20 mg capsule 2 cap PO QAM prazosin 2 mg capsule 2 cap PO BEDTIME cyclobenzaprine 10 mg tablet 10 mg PO TID PRN (Reason: muscle spasm) Qty: 15 0RF naproxen 500 mg tablet 500 mg PO BID PRN (Reason: pain) Qty: 30 0RF lidocaine [Lidoderm] 5 % adhesive patch,medicated 1 patch topical DAILY Qty: 15 0RF Rx Instructions: leave on most painful area for up to 12 hrs loratadine 10 mg tablet 10 mg PO QAM PRN (Reason: allergies) fluticasone propionate [Flovent HFA] 220 mcg/actuation HFA aerosol inhaler 1 puff inhalation BID atenolol 25 mg tablet 25 mg PO QAM lisinopril 5 mg tablet 5 mg PO QAM fluticasone propionate 50 mcg/actuation spray,suspension 2 spray intranasal DAILY albuterol sulfate [Ventolin HFA] 90 mcg/actuation HFA aerosol inhaler 2 puff inhalation Q4-6H PRN levothyroxine 75 mcg tablet 75 mcg PO QAM sertraline 100 mg tablet 150 mg PO QAM bupropion HCl 300 mg tablet extended release 24 hr 300 mg PO QAM metronidazole 500 mg tablet 500 mg PO BID 7 Days Qty: 14 0RF metoclopramide HCl [Reglan] 10 mg tablet 10 mg PO .tidac Qty: 90 6RF pantoprazole 40 mg tablet,delayed release (DR/EC) 40 mg PO BID Qty: 60 6RF simethicone 180 mg capsule 180 mg PO QID 30 Days Qty: 120 6RF Rx Instructions: after meals Linzess 72 mcg capsule 72 mcg PO .q2pm Qty: 30 6RF Referrals: Libra Barone MD [Primary Care Provider] - Print Language: Malagasy
[2024-08-21] MEDS: Ketorolac Tromethamine 15 MG/ML VIAL IM (11:47)
[2024-08-21] MEDS: Acetaminophen 325 MG TABLET 975 MG PO (11:47)
[2024-08-21 12:23] VITALS: BP 127/60; PULSE 66; RESP 16; TEMP 36.6; O2SAT 95
[2024-08-21 12:55] VITALS: BP 127/60; PULSE 66; RESP 16; TEMP 36.6; O2SAT 95
== END 2024-08-21 12:56 | disposition home or self-care (01) ==
PROVIDERS: Emergency Provider Emergency Medicine Emergency Medical Services; PCP Family Medicine
DX: S93.402A Sprain of unspecified ligament of left ankle, initial encounter (principal); M25.572 Pain in left ankle and joints of left foot; X50.1XXA Overexertion from prolonged static or awkward postures, initial encounter; Y93.89 Activity, other specified; Y92.89 Other specified places as the place of occurrence of the external cause; Y99.8 Other external cause status
CPT/HCPCS: 73610; 73630; 96372; 99284; J1885

== ENCOUNTER 2024-09-08 13:46 | Outpatient (AMB) | payer OTHER, SELFPAY ==
[2024-09-08 14:51] VITALS: BMI 36.3
--- NOTE | 2024-09-08 14:51 | A.OFFVIS_ITS ---
Vital Signs 09/08/24 14:51 Height 5 ft 2 in Weight 198 lb 6.656 oz BMI 36.3 Intake Visit Reasons: EMB/Ultra sound follow up Liquid Sugar Melter Required: Yes Liquid Sugar Melter Language: Financial Risk Manager Services: Liquid Sugar Melter Present (IN PERSON) Liquid Sugar Melter Name: Flory FELIZ Information Interpreted: non-clinical & clinical Master At Arms: Master At Arms Present (Flory FELIZ) Accompanied by: Self / Same As Patient Allergies No Known Allergies [No Known Allergies*] Allergy (Verified 09/08/24 14:52) Post menopausal: Yes HPI Comments Details: Presenting for follow-up pelvic ultrasound . The patient had no additional episodes of vaginal bleeding. Last co testing done in 06/13 was negative Pelvic ultrasound showed the following: Uterus is retroverted and measures 7.2 x 4.0 x 4.1 cm. Uterine volume 61.8 mL. Right ovary not visualized. Limited visualization due to bowel gas. Endometrial thickness is 2 mm. Left ovary measures 2.2 x 1.0 x 2.3 cm, volume 2.7 mL. No significant free fluid. Redemonstration of a 2.4 x 2.2 x 2.7 cm echogenic uterine lesion, previously 2.3 x 2.2 x 2.3 cm on pelvic ultrasound of 02/11/2023. 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 Review of multiple imaging (pelvic ultrasound and CT scans) shows the followin/13 pelvic ultrasound= 1.7 myoma 02/10 pelvic ultrasound showed a 2.2 cm myoma 02/11 pelvic ultrasound showed a 2.3 cm lipoleiomyoma 07/14 ultrasound showed a 2.4 cm myoma 08/14 CT scan showed 2.3 cm lipoleiomyoma 04/14 CT scan 2.3 cm lipoleiomyoma 07/15 CT scan same 05/16 CT scan 2.4 cm lipoleiomyoma 07/16 2.7 x 2.4 cm lipoleiomyoma PFSH Medical History Smoker Bacterial vaginosis Hypertension Tubular adenoma of colon LLQ abdominal pain 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 Gastritis Surgical History Hx of hernia repair History of esophagogastroduodenoscopy (EGD) Hx of colonoscopy Family History Father Family history of prostate problems Colon cancer Mother Tumor Social History Household Members: None Alcohol intake: never Patient Tobacco Use Status: Current everyday Tobacco user Cigarettes Per Day: 2 Current occupational status: disabled Female Reproductive History Menstrual Age of Menarche: 13 Review of Systems Const All systems reviewed & are unremarkable except as noted in HPI and below Reports as per HPI and Reports no additional complaints GI Reports no additional complaints Reports no additional complaints Physical Exam Vital Signs: BMI result Body Mass Index 36.3 Assessment & Plan Assessment & Plan (1) Postmenopausal bleeding: Code(s): N95.0 - Postmenopausal bleeding Category: Medical Plan: Discussed with the patient the results of the pelvic ultrasound showing an endometrial stripe thickness of 2 mm. Explained to the patient with an endometrial stripe of 4 mm &/or less, there is a high negative predictive value in detecting endometrial pathology including endometrial hyperplasia, polyps or malignancy. Therefore, there is no indication for endometrial sampling. Discussed with the patient the sensitivity, specificity, and positive and the negative predictive value of using ultrasound in detecting endometrial pathology. The patient was instructed to call if bleeding recurs, will proceed with endometrial sampling out endometrial pathology. All questions were answered and the patient verbalized understanding and agreed with the plan. 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 Recommended to Gyne Onc consult [facility] referral for a consult placed Instructed the patient to call our office back in case a referral appointment is not scheduled, missed or canceled so that we will assist on rescheduling another appointment, the patient verbalized understanding agreed with the plan. Orders: Referrals Gynecologic Oncology Referral N85.8 - Other specified noninflammatory disorders of uterus Coding Level of Care Code Est Pt Level 3 (00296) Diagnoses Postmenopausal bleeding N95.0 Uterine mass N85.8
== END 2024-09-08 15:16 | disposition home or self-care (01) ==
LOC: HO.HWS 13:46
PROVIDERS: PCP Family Medicine; Visit Provider Obstetrics & Gynecology
DX: N95.0 Postmenopausal bleeding (principal); N85.8 Other specified noninflammatory disorders of uterus
CPT/HCPCS: 99213

== ENCOUNTER → 2024-09-08 13:46 | Outpatient (BNVA) | payer OTHER, SELFPAY | PROVIDERS: PCP Family Medicine; Visit Provider Obstetrics & Gynecology | DX: N95.0 Postmenopausal bleeding (principal); N85.8 Other specified noninflammatory disorders of uterus | CPT/HCPCS: 99212 ==

== ENCOUNTER 2024-09-13 10:26 | Outpatient (REF) | payer OTHER, SELFPAY ==
[2024-09-13 12:26] LABS: Anion Gap 10 (12-20); Blood Urea Nitrogen 14 mg/dL (9-16); Calcium 9.7 mg/dL (8.4-10.2); Carbon Dioxide 30 mmol/L (22-29); Chloride 105 mmol/L (96-108); Cholesterol 139 mg/dL (<200); Estimated Glomerular Filt Rate > 60; Glucose Random 127 mg/dL (60-115); HDL Cholesterol 52 mg/dL (>40); LDL Cholesterol Calculated 71 mg/dL (<100); Potassium 4.2 mmol/L (3.3-5.1); Sodium 141 mmol/L (135-145); Triglycerides 80 mg/dL (<150)
== END 2024-09-13 10:27 | disposition home or self-care (01) ==
LOC: HO.HHCL 10:26
PROVIDERS: Visit Provider Family Medicine
DX: E11.9 Type 2 diabetes mellitus without complications (principal); I10 Essential (primary) hypertension
CPT/HCPCS: 36415; 80048; 80061

== ENCOUNTER 2024-11-14 14:53 | Emergency (ER) | payer OTHER, SELFPAY ==
--- NOTE | ~2024-11-14 | XR_ITS ---
EXAMINATION: XR CHEST CLINICAL INFORMATION: pneumonia COMPARISON: 09/17/2023 TECHNIQUE: Frontal view of the chest was obtained. FINDINGS: No focal consolidation, pulmonary edema, or pleural effusion. Stable cardiomediastinal silhouette. XR/XR chest 1V IMPRESSION: No acute pulmonary disease. Electronically signed by: Oleg Ruano MD 11/14/2024 07:01 PM [facility]
--- OUTSIDE RECORDS SUMMARY | 2024-11-14 14:55 | XMS_ITS | Continuity of Care Document ---
Author Organization [facility] CHEESE BLENDER Oncolog y Address [address] [place] [address]- Care Team Providers Care Operator Electronic Warfare Name Role Phone Libra Barone MD Primary Care Physician Encounter [facility] Date(s): 09/27/24 - 11/09/24 [facility] BLENDER Oncology [address] [place] [address]- Attending Physician: Rosanna Lowe MD Admitting Physician: Rosanna Lowe MD Encounter Type: Pre-OutPatient One Time Allergies, Adverse Reactions, Alerts No Known Allergies Medications Colace sodium 100 mg oral capsule 1 capsule = 100 mg, By Mouth, 2 times a day, PRN for constipation, # 30 capsule, 0 Refills, Maintenance, 08/24/14 2:14:26 PM EDT, Capsule, [facility] Start Date: 08/24/14 Status: Ordered Quantity: 30.0 Unit: capsule Repeat number: 1 Levothyroxine Tablet Daily, 0 Refills, Maintenance, 03/11/13 2:43:21 PM EDT Start Date: 03/11/13 Status: Ordered Repeat number: 1 Metformin = 500 mg, By Mouth, 0 Refills, Maintenance, 10/10/24 3:27:00 PM EST, Partial fill upon patient request if the prescription is for a schedule II opioid drug. Start Date: 10/10/24 Status: Ordered Repeat number: 1 nystatin topical [id number] u/gm powder 1 applicator, Topically, 3 times a day, # 30 Gm, 0 Refills, Maintenance, 08/24/14 2:14:56 PM EDT, [facility], 1 applicator Topically 3 times a day Start Date: 10/2/14 Status: Ordered Quantity: 30.0 Unit: g Repeat number: 1 Problem List Condition Confirmation Course Effective Dates Status Health St atus Informant Diabetes Confirmed Active Gastritis Confirmed Active Hypertension Confirmed Active Polyp of corpus uteri Confirmed Active Severe obesity (BMI 35.0-39.9) with comorbidity Confirmed Active Tubular adenoma of colon Confirmed Active Abnormal ultrasound of pelvis Confirmed Active Social History Social History Type Response Tobacco Use: 4 or less cigar ettes(less than 1/4 pack)/day in last 30 days. Sex Female Sex Representation Female (finding) Patient Care team information Care Team Personnel Name: Libra Barone MD Position: [facility] Outreach Member Role: PCP Address: [address] [place] [address] [place] [address] Telecom: Care Team Related Persons Name: LEEANN SPARROW Insurance Providers Guarantor name: RICARDO SIEGEL Health Plan Information #: 1 Payer: NA Member Number: [id number] Policy Number: ALHAJI Group Number: [id number] Health Plan Information #: 2 Payer: NA Member Number: [id number] Policy Number: ALHAJI Group Number: [id number]
--- OUTSIDE RECORDS SUMMARY | 2024-11-14 14:55 | XMS_ITS | Continuity of Care Document ---
Author Organization [facility] DIRECTOR OF CARDIAC CATH LAB Oncolog y Address [address] [place] [address]- Care Team Providers Care Preformer [employer]ated [employer] Name Role Phone Libra Barone MD Primary Care Physician Encounter [facility] Date(s): 10/10/24 - 11/09/24 [facility] DIRECTOR OF CARDIAC CATH LAB Oncology [address] [place] [address]- Attending Physician: Sebastian Daily Admitting Physician: Sebastian Daily Referring Physician: AdmtrSebastian Encounter Type: Triage Allergies, Adverse Reactions, Alerts No Known Allergies Medications Colace sodium 100 mg oral capsule 1 capsule = 100 mg, By Mouth, 2 times a day, PRN for constipation, # 30 capsule, 0 Refills, Maintenance, 08/24/14 2:14:26 PM EDT, [facility], [facility] Start Date: 08/24/14 Status: Ordered Quantity: 30.0 [...] Status: Ordered Repeat number: 1 nystatin topical [id number] u/gm powder 1 applicator, Topically, 3 times a day, # 30 Gm, 0 Refills, Maintenance, 08/24/14 2:14:56 PM EDT, [facility], 1 applicator Topically 3 times a day Start Date: 08/24/14 Status: Ordered Quantity: 30.0 Unit: g Repeat [...] Team Personnel Name: Libra Barone MD Position: [facility] Outreach Member Role: PCP Address: [address] [place] [address] [place] [address] Telecom: Care Team Related Persons Name: LEEANN SPARROW Insurance Providers Guarantor name: RICARDO SIEGEL Health Plan Information #: 1 Payer: NA Member Number: NA Policy Number: NA Group Number: NA
--- OUTSIDE RECORDS SUMMARY | 2024-11-14 14:55 | XMS_ITS | Continuity of Care Document ---
Author Organization [facility] DISEASE CASE MANAGER Oncolog y Address [address] [place] [address]- Care Team Providers Care Assistant Men'S Lacrosse Coach Name Role Phone Libra Barone MD Primary Care Physician Encounter [facility] Date(s): 09/26/24 - 10/30/24 [facility] DISEASE CASE MANAGER Oncology [address] [place] [address]- Attending Physician: Rosanna Lowe MD Admitting Physician: Rosanna Lowe MD Encounter Type: Pre-OutPatient One Time Allergies, Adverse Reactions, Alerts No Known Allergies Medications Colace sodium 100 mg oral capsule 1 capsule = 100 mg, By Mouth, 2 times a day, PRN for constipation, # 30 capsule, 0 Refills, Maintenance, 08/24/14 2:14:26 PM EDT, Capsule, [facility] Start Date: 08/24/14 Status: Ordered Quantity: 30.0 [...] Status: Ordered Repeat number: 1 nystatin topical [id number] u/gm powder 1 applicator, Topically, 3 times a day, # 30 Gm, 0 Refills, Maintenance, 08/24/14 2:14:56 PM EDT, [facility], 1 applicator Topically 3 times a day [...] Team Personnel Name: Libra Barone MD Position: [facility] Outreach Member Role: PCP Address: [address] [place] [address] [place] [address] Telecom: Care Team Related Persons Name: LEEANN SPARROW Insurance Providers Guarantor name: RICARDO SIEGEL Health Plan Information #: 1 Payer: NA Member Number: [id number] Policy Number: ALHAJI Group Number: [id number] Health Plan Information #: 2 Payer: NA Member Number: [id number] Policy Number: ALHAJI Group Number: [id number]
[2024-11-14 15:35] VITALS: BP 151/72; PULSE 68; RESP 16; TEMP 37.7; O2SAT 95; BMI 33.6
--- NOTE | 2024-11-14 15:44 | ED.GENADULT ---
HPI - General Adult General Chief complaint: General Medical Stated complaint: Headache Time Seen by Provider: 11/14/24 15:58 Source: patient Mode of arrival: ambulatory Limitations: no limitations History of Present Illness ED Provider: Tristan BORGES HPI narrative: 64 yold female with pmh of tubular adenoma colon, diverticulitits, GERD presents to the ED for severe headache, scratchy throat, and bodyaches. Patient denies any chest pain, shorntess of breath, weakness, or dizziness. Related Data Home Medications ?Medication ?Instructions ?Recorded ?Confirmed fluoxetine 20 mg capsule (Prozac) 2 cap PO QAM 06/10/21 12/01/23 gabapentin 100 mg capsule 1 cap PO BEDTIME 06/10/21 12/01/23 prazosin 2 mg capsule 2 cap PO BEDTIME 06/10/21 12/01/23 levothyroxine 75 mcg tablet 75 mcg PO QAM 05/23/22 12/01/23 sertraline 100 mg tablet 150 mg PO QAM 05/23/22 12/01/23 albuterol sulfate 90 mcg/actuation 2 puff inhalation Q4-6H PRN 03/24/23 12/01/23 aerosol inhaler (Ventolin HFA) atenolol 25 mg tablet 25 mg PO QAM 03/24/23 12/01/23 fluticasone propionate 220 1 puff inhalation BID 03/24/23 12/01/23 mcg/actuation HFA aerosol inhaler (Flovent HFA) fluticasone propionate 50 2 spray intranasal DAILY 03/24/23 12/01/23 mcg/actuation nasal spray,suspension lisinopril 5 mg tablet 5 mg PO QAM 03/24/23 12/01/23 loratadine 10 mg tablet 10 mg PO QAM PRN allergies 03/24/23 12/01/23 bupropion HCl 300 mg 24 hr tablet, 300 mg PO QAM 08/26/23 12/01/23 extended release Previous Rx's ?Medication ?Instructions ?Recorded linaclotide 72 mcg capsule 72 mcg PO .q2pm #30 caps 11/27/23 (Linzess) metoclopramide HCl 10 mg tablet 10 mg PO .tidac #90 tabs 11/27/23 (Reglan) cyclobenzaprine 10 mg tablet 10 mg PO TID PRN muscle spasm #15 04/10/24 tabs lidocaine 5 % topical patch 1 patch topical DAILY #15 ea 04/10/24 (Lidoderm) naproxen 500 mg tablet 500 mg PO BID PRN pain #30 tabs 04/10/24 metronidazole 500 mg tablet 500 mg PO BID 7 days #14 tabs 06/21/24 terconazole 0.8 % vaginal cream 1 appful vaginal BEDTIME 3 days 06/22/24 #20 grams simethicone 180 mg capsule 180 mg PO QID #120 caps 08/26/24 pantoprazole 40 mg tablet,delayed 40 mg PO BID #60 tabs 09/23/24 release Allergies Allergy/AdvReac Type Severity Reaction Status Date / Time No Known Allergies Allergy Verified 11/14/24 15:36 [No Known Allergies*] Review of Systems Review of Systems: headache, scratchy throat, bodycaheaces Yes all other systems are reviewed and are negative PMFSH Past Medical History Medical History Smoker Bacterial vaginosis Hypertension Tubular adenoma of colon LLQ abdominal pain 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 Gastritis Surgical History Hx of hernia repair History of esophagogastroduodenoscopy (EGD) Hx of colonoscopy Family History Family History Father Family history of prostate problems Colon cancer Mother Tumor Social History Social History Household Members: None Alcohol intake: never Patient Tobacco Use Status: Current everyday Tobacco user Cigarettes Per Day: 2 Advance Directives: No Advance Directives Information Provided: No Current occupational status: disabled Physical Exam ED Vital Signs: Vital Signs - 24 hr 11/14/24 15:35 11/14/24 18:05 11/14/24 19:05 Temperature 100 F 97.9 F 97.9 F Pulse Rate 68 64 64 Respiratory Rate 16 16 16 Blood Pressure 151/72 H 153/84 H 153/84 H Pulse Oximetry 95 96 96 Oxygen Delivery Method Room Air Room Air Room Air BMI result Body Mass Index 33.6 Const General: cooperative, healthy appearing, comfortable, no acute distress, well developed, alert, awake and Physically active Orientation/consciousness: patient oriented x3 HENMT Head: Yes normal to inspection, Yes No palpable skull fracture present, Yes normocephalic and Yes atraumatic Throat: Yes posterior oropharynx normal, Yes tonsils normal and Yes uvula midline Eyes General: appearance normal, both eyes and all related structures Neck Neck: Yes normal visual inspection, Yes full ROM, Yes no lymphadenopathy, Yes no meningeal signs, Yes trachea midline, Yes supple, No anterior neck swelling and No tender Chest Chest palpation & inspection: normal inspection of the chest and normal palpation of entire chest wall Resp Effort & Inspection: normal respiratory effort and able to speak in complete sentences Auscultation: clear to auscultation bilaterally Cardio Jugular venous distension: no JVD Heart sounds: S1 normal heart sound present and S2 normal heart sound present GI Inspection: Yes normal to inspection Palpation (GI): Soft to palpation, not firm, nontender, no guarding and not rigid General: Yes no CVA tenderness Back/Spine/Pelvis Back: no CVA tenderness and No back tenderness Skin General skin exam: no rashes or lesions noted, elasticity normal and turgor normal Neuro General: patient oriented x3, gait normal, tone normal, moves all extremities, Normal light touch and pain sensation, no meningeal signs, no focal motor deficits, CN's II-XI intact bilaterally and normal sensation to monofilament Extrem General: Yes normal to inspection, Yes full ROM and Yes capillary refill normal Psych Appearance: grossly normal, well kempt and not disheveled Course Course Course Narrative: RME: 64-year-old female presents to ED for body aches, headache, scratchy throat. Patient denies any rash, photophobia, neck stiffness. SARs strep ordered. Medical Decision Making Medical Decision Making [facility] Narrative: 64 yold female presents to the ED for severe headache, scratchy throat, and generazlied bodyaches. Patient denies any chest pain, shortnes of breath, coughing up blood weakness, dizziness, or calf pain. Chest x-ray negative pneumonia. Patient positive SARs. Patient explained worrisome signs and informed to return to the ED immediately. Differential Diagnosis Differential Diagnoses: The differential diagnosis associated with the presentation includes (COVID influenza pneumonia) Admission/Observation Consideration of admission/observation: Escalation of care including admission/observation considered Lab Data [facility] Lab Attestation statement: I reviewed the patient's lab results. Labs: Lab Results 11/14/24 Range/Units 15:52 Influenza Type A (PCR) NEGATIVE (Negative) Influenza Type B (PCR) NEGATIVE (Negative) RSV RNA Qual (PCR) NEGATIVE (Negative) SARS-CoV-2 RNA (RT-PCR) POSITIVE A (Negative) S. pyogenes GrpA MAYTE Negative (Negative) Independent Interpretation I performed an independent interpretation of an: Plain X-Ray Radiology Impression Discussion of test interpretation with radiology: I have reviewed the radiologist's reading. Independent Historian Clinical information obtained from an independent historian. History obtained from or confirmed by: Other (Patient) External Record Review External record reviewed: Other (Prior visits) Prescription Management I considered prescription management with: Other Discharge Plan Discharge Clinical Impression: COVID-19 Patient Disposition: Home, Self-Care Instructions: COVID-19 (Coronavirus Disease 2019) (ED) Additional Instructions: Return to the ED immediately with shortness of breath, chest pain, weakness, dizziness, calf pain,, coughing up blood, or any other concerning symptoms. Recommend follow up with primary care provider Prescriptions: No Action terconazole 0.8 % cream 1 appful vaginal BEDTIME 3 Days Qty: 20 0RF simethicone 180 mg capsule 180 mg PO QID Qty: 120 6RF pantoprazole 40 mg tablet,delayed release (DR/EC) 40 mg PO BID Qty: 60 6RF gabapentin 100 mg capsule 1 cap PO BEDTIME fluoxetine [Prozac] 20 mg capsule 2 cap PO QAM prazosin 2 mg capsule 2 cap PO BEDTIME cyclobenzaprine 10 mg tablet 10 mg PO TID PRN (Reason: muscle spasm) Qty: 15 0RF naproxen 500 mg tablet 500 mg PO BID PRN (Reason: pain) Qty: 30 0RF lidocaine [Lidoderm] 5 % adhesive patch,medicated 1 patch topical DAILY Qty: 15 0RF Rx Instructions: leave on most painful area for up to 12 hrs loratadine 10 mg tablet 10 mg PO QAM PRN (Reason: allergies) fluticasone propionate [Flovent HFA] 220 mcg/actuation HFA aerosol inhaler 1 puff inhalation BID atenolol 25 mg tablet 25 mg PO QAM lisinopril 5 mg tablet 5 mg PO QAM fluticasone propionate 50 mcg/actuation spray,suspension 2 spray intranasal DAILY albuterol sulfate [Ventolin HFA] 90 mcg/actuation HFA aerosol inhaler 2 puff inhalation Q4-6H PRN levothyroxine 75 mcg tablet 75 mcg PO QAM sertraline 100 mg tablet 150 mg PO QAM bupropion HCl 300 mg tablet extended release 24 hr 300 mg PO QAM metronidazole 500 mg tablet 500 mg PO BID 7 Days Qty: 14 0RF metoclopramide HCl [Reglan] 10 mg tablet 10 mg PO .tidac Qty: 90 6RF Linzess 72 mcg capsule 72 mcg PO .q2pm Qty: 30 6RF Interventions: ED Discharge Assessment Last Done: 11/14/24 19:05 Discharge Date/Time: 11/14/24 19:06 Print Language: Palestinian
[2024-11-14 16:07] LABS: IDNOW Serial# 08D9AD1C; Strep A Nucleic Acid Negative (Negative)
[2024-11-14 16:46] LABS: Influenza A PCR NEGATIVE (Negative); Influenza B PCR NEGATIVE (Negative); Resp Syncy Virus RNA Qual PCR NEGATIVE (Negative); SARS COV2 PCR INHOUSE POSITIVE (Negative)
[2024-11-14 18:05] VITALS: BP 153/84; PULSE 64; RESP 16; TEMP 36.6; O2SAT 96
[2024-11-14 19:05] VITALS: BP 153/84; PULSE 64; RESP 16; TEMP 36.6; O2SAT 96
== END 2024-11-14 19:06 | disposition home or self-care (01) ==
PROVIDERS: Emergency Medicine; Physician Assistant; Emergency Provider Emergency Medicine; PCP Family Medicine
DX: U07.1 COVID-19 (principal); J02.9 Acute pharyngitis, unspecified; F17.210 Nicotine dependence, cigarettes, uncomplicated
CPT/HCPCS: 0241U; 71045; 87651; 99283

== ENCOUNTER 2025-01-26 11:14 | Outpatient (REF) | payer OTHER, SELFPAY ==
[2025-01-26 12:57] LABS: TSH reflex Free T4 1.82 uIU/mL (0.32-4.0)
--- OUTSIDE RECORDS SUMMARY | 2025-01-26 13:45 | XMS_ITS | Encounter Summary ---
Author Organization [facility] Address [address] [facility] [address] [place] [address] Care Team Providers Care Professor/Nurse Anesthetist Name Role Phone Lizabeth, Libra FARRELL Primary Care Provider + [phone] Malu Medina PharmD Unavailable [phone] Encounter Details Date Type Department Care Team (Latest Contact Info) Description 10/09/2022 Abstract [facility] CONVERSIONS Dental, Provider, DDS Social History Tobacco Use Types Packs/Day Years Used Date Smoking Tobacco: Never Assessed Comments Unknown Sex and Gender Information Value Date Recorded Sex Assigned at Female 09/22/2022 10:14 AM EDT Legal Sex Female 10:14 AM EDT Gender Identity Female 09/22/2022 10:14 AM EDT Sexual Orientation Straight 09/22/2022 10 :14 AM EDT documented as of this encounter Plan of Treatment Upcoming Encounters Date Type Department Care Team ( st Contact Info) Description 02/28/2025 2:00 PM EDT Office Visit [facility] OPTOMETRY [address] [place] [address] Gary, Tamie, OD [address] [place] [address] 03/22/2025 2:00 PM EDT Medication Management [facility] MEDICINE [address] [place] [address] Malu Medina, PharmD [address] [place] [address] 05/10/2025 3:00 PM EDT Office Visit [facility] ADULT DENTAL [address] [place] [address] Quiana Head [address] [place] [address] documented as of this encounter Visit Diagnoses Not on filedocumented in this encounter Care Teams Professor/Nurse Anesthetist Relationship Specialty Start Date End Date Libra Barone MD [address] [place] [address] PCP - General Family Medicine 11/23/18 Malu Medina, Becky [address] [place] [address] Pharmacist Internal Medicine 05/09/24 documented as of this encounter
--- OUTSIDE RECORDS SUMMARY | 2025-01-26 13:45 | XMS_ITS | Encounter Summary ---
Author Organization [employer] [facility] Address [address] [facility] [address] [place] [address] Care Team Providers Care Equipment Oiler Name Role Phone Lizabeth, Libra FARRELL Primary Care Provider + [phone] Malu Medina PharmD Unavailable [phone] Encounter Details Date Type Department Care Team (Latest Contact Info) Description 03/25/2021 Abstract [facility] CONVERSIONS Dental, Provider, DDS Social History Tobacco [...] Description 02/28/2025 2:00 PM EDT Office Visit [facility] OPTOMETRY [address] [place] [address] Gary, Tamie, OD [address] [place] [address] 03/22/2025 2:00 PM EDT Medication Management [facility] MEDICINE [address] [place] [address] Malu Medina, PharmD [address] [place] [address] 05/10/2025 3:00 PM EDT Office Visit [facility] ADULT DENTAL [address] [place] [address] Quiana Head [address] [place] [address] documented as of this encounter Visit Diagnoses Not on filedocumented in this encounter Care Teams Equipment Oiler Relationship Specialty Start Date End Date Libra Barone MD [address] [place] [address] PCP - General Family Medicine 11/23/18 Malu Medina, Becky [address] [place] [address] Pharmacist Internal Medicine 05/09/24 documented as of this encounter
--- OUTSIDE RECORDS SUMMARY | 2025-01-26 13:46 | XMS_ITS | Encounter Summary ---
Author Organization [facility] Address [address] [place] [address] Care Team Providers Care Parts Sales Associate Name Role Phone LizabethLibra tyson MD Primary Care Provider [phone]- [phone] Malu Medina PharmD Unavailable [phone] Encounter Details Date Type Department Care Team (Latest Contact Info) Description 01/26/2025 Travel Social History Tobacco Use Types Packs/Day Years Used Date Smoking Tobacco: Some Days Cigarettes Passive Smoke Exposure: Never Smokeless Tobacco: Never Alcohol Use Standard Drinks/Week Comments Never 0 (1 standard drink = 0.6 oz pur e alcohol) Depression Answer Date Recorded Patient Health Questionnaire-9 Score 0 04/20/2024 Patient Health Questionnaire-9 Score 0 04/20/2024 Last PHQ-9: Questionnaire Data Not on file 0 04/20/2024 Housing Stability Answer Date Recorded What is your housing situation today? I have antoineblack crespo 04/20/[address] you li ve. Do you have problems with any of the following? None of the above 04/20/2024 Food Insecurity Answer Date Recorded Within the past 12 months, y ou worried that your food would run out before you got money to buy more: Sometimes True 2024 Within the past 12 months,th e food you bought just didn't last and you didn't have enough money to get more: Sometimes True 01/17/2025 Transportation Answer Date Recorded In the past 12 months, has l ack of transportation kept you from medical appts, meetings, work or from getting things needed for daily living? No 04/20/2024 Utilities Answer Date Recorded In the past 12 months, has t he electric, gas, oil or water company threatened to shut off services in your home? No 04/20/2024 Depression Answer Date Recorded Patient Health Questionnaire-2 Score 0 04/20/2024 Internet Access Answer Date Recorded Internet Access Q1 Yes 01/17/2025 Internet Access Q2 Not on file 01/17/2025 Comments Unknown Sex and Gender Information Value Date Recorded Sex Assigned at Female 09/22/2022 10:14 AM EDT Legal Sex Female 10:14 AM EDT Gender Identity Female 09/22/2022 10:14 AM EDT Sexual Orientation Straight 09/22/2022 10 :14 AM EDT documented as of this encounter Plan of Treatment Upcoming Encounters Date Type Department Care Team (Late st Contact Info) Description 02/28/2025 2:00 PM EDT Office Visit [facility] OPTOMETRY [address] [place] [address] Gayr, Tamie, OD [address] [place] [address] 03/22/2025 2:00 PM EDT Medication Management [facility] MEDICINE [address] [place] [address] Piers-Connolly, Malu, PharmD [address] [place] [address] 05/10/2025 3:00 PM EDT Office Visit [facility] ADULT DENTAL [address] [place] [address] Adilene, Quiana [address] [place] [address] documented as of this encounter Goals Goal Patient Goal Type Associated Problems Recent Progress Patient-Stated? Author Blood Pressure < 140/90 Blood Pressure 130/80(2024 10:32 AM EST) No Piers-Gambl e, Malu, PharmD Hemoglobin A1c < 7 Result Component 7.5( 3:10 PM EST) No Piers-Gambl e, Amlu, PharmD documented as of this encounter Visit Diagnoses Not on filedocumented in this encounter Additional Health Concerns Assessment Noted Time PHQ-9 Depression Total Score: 0 04/20/20 24 3:44 PM EDT documented as of this encounter Care Teams Parts Sales Associate Relationship Specialty Start Date End Date Libra Barone MD [address] [place] [address] PCP - General Family Medicine 11/23/18 Malu Medina, Becky [address] [place] [address] Pharmacist Internal Medicine 05/09/24 documented as of this encounter
--- OUTSIDE RECORDS SUMMARY | 2025-01-26 13:46 | XMS_ITS | Encounter Summary ---
Author Organization [employer] Address [address] 7t [place] [address] Care Team Providers Care Mounting Machine Operator Name Role Phone Libra Barone MD Primary Care Provider [phone]- [phone] Malu Medina PharmD Unavailable [phone] Reason for Visit * Reason Onset Date Comments Appointment Request 01/02/2025 Encounter Details Date Type Department Care Team ([facility] Contact Info) Description 01/02/2025 Telephone [facility] MEDICINE [address] [place], [place] [phone] Libra Barone MD [address] [place], [place] [phone] Appointment Request Social History Tobacco Use Types Packs/Day Years [...] is your housing situation today? I have antoine crespo 04/20/[address] you li ve. Do you have problems with any of the following? None of the above 04/20/2024 Food Insecurity Answer Date Recorded Within the past 12 months, y ou worried that your food would run out before you got money to buy more: Never True 04/20/2024 Within the past 12 months,th e food you bought just didn't last and you didn't have enough money to get more: Never True Transportation Answer Date Recorded In the past [...] Recorded Patient Health Questionnaire-2 Score 0 04/20/2024 Comments Unknown Sex and Gender Information Value Date Recorded Sex Assigned at Female 09/22/2022 10:14 AM EDT Legal Sex Female 10:14 AM EDT Gender Identity Female 09/22/2022 10:14 AM EDT Sexual Orientation Straight 09/22/2022 10 :14 AM EDT documented as of this encounter Miscellaneous Notes * Telephone Encounter - Herb Mendes - 01/02/2025 10:18 AM EST Tc from pt requesting to r/s appt today (01/02/2025 3pm) with pharmacy. (CDTM DM2 AND HTN FOLLOW UP IN PERSON SONIA VELA) documented in this encounter Plan of Treatment Upcoming Encounters Date Type Department Care Team (Late st Contact Info) Description 02/28/2025 2:00 PM EDT Office Visit [facility] OPTOMETRY [address] [place] [address] Gary, Tamie, OD 230 [place] [address] 03/22/2025 2:00 PM EDT Medication Management [facility] MEDICINE [address] [place] [address] Malu Medina, PharmD 230 [place] [address] 05/10/2025 3:00 PM EDT Office Visit [facility] ADULT DENTAL [address] [place] [address] Quiana Head [address] [place] [address] documented as of this encounter Goals Goal Patient Goal Type Associated Problems Recent Progress Patient-Stated? Author Blood Pressure < 140/90 Blood Pressure 130/80(2024 10:32 AM EST) No Malu Mckinnon PharmD Hemoglobin A1c < 7 Result Component 7.5( 3:10 PM EST) No Malu Mckinnon PharmD documented as of this encounter Visit Diagnoses Not on filedocumented in this encounter Additional Health Concerns Assessment Noted Time PHQ-9 Depression Total Score: 0 04/20/20 3:44 PM EDT documented as of this encounter Care Teams Mounting Machine Operator Relationship Specialty Start Date End Date Libra Barone MD 230 [place] [address] PCP - General Family Medicine 11/23/18 Malu Medina PharmD [address] [place] [address] Pharmacist Internal Medicine 05/09/24 documented as of this encounter
--- OUTSIDE RECORDS SUMMARY | 2025-01-26 13:46 | XMS_ITS | Encounter Summary ---
Author Organization [employer] Address [address] 7[address] [place] [address] Care Team Providers Care Powered Bridge Specialist Name Role Phone Libra Barone MD Primary Care Provider [phone]- [phone] Malu Medina PharmD Unavailable [phone] Reason for Visit * Reason Onset Date Comments Pharmacy CHW 08/19/2024 Encounter Details Date Type Department Care Team ([facility] st Contact Info) Description 08/19/2024 Telephone [facility] MEDICINE [address] [place], [place] [phone] Libra Barone MD [address] [place], [place] [phone] Pharmacy CHW Social History Tobacco Use Types Packs/Day Years [...] encounter Miscellaneous Notes * Telephone Encounter - Shalini No - 08/19/2024 11:55 AM EDT Tc from pt requesting to r/s Pharmacy CHW appt on 08/19/24 documented in this encounter Plan of Treatment Upcoming Encounters Date Type Department Care Team (Late st Contact Info) Description 02/28/2025 2:00 PM EDT Office Visit [facility] OPTOMETRY [address] [place] [address] Gary, Tamie, OD 230 [place] [address] 03/22/2025 2:00 PM EDT Medication Management [facility] MEDICINE [address] [place] [address] Malu Medina, PharmD 230 [place] [address] 05/10/2025 3:00 PM EDT Office Visit [facility] ADULT DENTAL [address] [place] [address] Quiana Head [address] [place] [address] documented as of this encounter Goals Goal Patient Goal Type Associated Problems Recent Progress Patient-Stated? Author Blood Pressure < 140/90 Blood Pressure 130/80(2024 10:32 AM EST) No Malu Mckinnon PharmD Hemoglobin A1c < 7 Result Component 7.5( 3:10 PM EST) No Malu Mckinnno PharmD documented as of this encounter Visit Diagnoses Not on filedocumented in this encounter Additional Health Concerns Assessment Noted Time PHQ-9 Depression Total Score: 0 04/20/20 3:44 PM EDT documented as of this encounter Care Teams Powered Bridge Specialist Relationship Specialty Start Date End Date Libra Barone MD [address] [place] [address] PCP - General Family Medicine 11/23/18 Malu Medina PharmD [address] [place] [address] Pharmacist Internal Medicine 05/09/24 documented as of this encounter
--- OUTSIDE RECORDS SUMMARY | 2025-01-26 13:46 | XMS_ITS | Encounter Summary ---
Author Organization [employer] Address [address] [place] [address] Care Team Providers Care Special Police Name Role Phone Libra Barone MD Primary Care Provider [phone]- [phone] Malu Medina PharmD Unavailable [phone] Reason for Visit * Reason Comments Pre-visit Planning SDOH Screening posit usman and Tobacco screening positive Encounter Details Date Type Department Care Team ([facility] st Contact Info) Description 01/17/2025 Patient Outreach [facility] MEDICINE 230 [place], [place] [phone] Libra Barone MD [address] [place], [place] [phone] Pre-visit Planning (SDOH Screening positive and Tobacco screening positive) Social History Tobacco Use Types Packs/Day Years [...] AM EDT documented as of this encounter Progress Notes * Adelaide Chilel - 01/17/2025 2:17 PM EST YEMI Mcgovern placed successful outbound call to patient for pre-visit planning. Patient name and confirmed. Patient confirms appt date and time, and has transportation arrangements. Biggest concern for appointment at this time is no concerns. Patient advised to bring to appointment a photo id and insurance card. Appropriate screenings completed in anticipation of appointment. Tobacco screening positive. Will need counseling. SDOH positive. Patient looking for assistance with Food insecurities: Sometimes. Referral will be placed. documented in this encounter Plan of Treatment Upcoming Encounters Date Type Department Care Team (Late st Contact Info) Description 02/28/2025 2:00 PM EDT Office Visit [facility] OPTOMETRY [address] [place] [address] Tamie Vega, OD 230 [place] [address] 03/22/2025 2:00 PM EDT Medication Management [facility] MEDICINE 230 [place] [address] Malu Medina PharmD [address] [place] [address] 05/10/2025 3:00 PM EDT Office Visit [facility] ADULT DENTAL [address] [place] [address] Quiana Head 230 [place] [address] documented as of this encounter Goals Goal [...] documented as of this encounter Care Teams Special Police Relationship Specialty Start Date End Date Libra Barone MD [address] [place] [address] PCP - General Family Medicine 11/23/18 Malu Medina PharmD [address] [place] [address] Pharmacist Internal Medicine 05/09/24 documented as of this encounter
--- OUTSIDE RECORDS SUMMARY | 2025-01-26 13:46 | XMS_ITS | Encounter Summary ---
Author Organization [employer] Address [address] 7[address] [place] [address] Care Team Providers Care Cold Rolling Machine Setter Name Role Phone Libra Barone MD Primary Care Provider +- [phone] Malu Medina PharmD Unavailable [phone] Encounter Details Date Type Department Care Team ([facility] st Contact Info) Description 01/03/2025 6:00 PM EST Office Visit [facility] 230 [place], [place] [phone] Piter Owens MD [address] [place], [place] [phone] Urticaria (Primary Dx); Pain of both breasts Social History Tobacco Use Types Packs/Day Years Used Date Smoking Tobacco: Some Days Cigarettes Passive Smoke Exposure: Never Smokeless Tobacco: Never Tobacco Cessation:Ready to Q uit: Not Asked; Counseling Given: Not Answered Alcohol Use Standard Drinks/Week Comments Never 0 (1 standard drink = 0.6 oz pur e alcohol) Depression Answer Date Recorded Patient Health Questionnaire-9 Score 0 04/20/2024 Patient Health Questionnaire-9 Score 0 04/20/2024 Last PHQ-9: Questionnaire Data Not on file 0 04/20/2024 Housing Stability Answer Date Recorded What is your housing situation today? I have antoine zak 04/20/[address] you li [...] AM EDT documented as of this encounter Last Filed Vital Signs Vital Sign Reading Time Taken Comments Blood Pressure 155/83 01/03/2025 5:37 PM EST Pulse 54 01/03/2025 5:37 PM EST Temperature 36.1 ??C (96.9 ??F) 01/03/2025 5:37 PM ES T Respiratory Rate 16 01/03/2025 5:37 PM EST Oxygen Saturation - - Inhaled Oxygen Concentration - - Weight 88 kg (194 lb) 01/03/2025 5:37 PM EST Height 157.5 cm (5' 2 ) 01/03/2025 5:37 PM EST Body Mass Index 35.48 01/03/2025 5:37 PM EST documented in this encounter Progress Notes * Piter Owens MD - 01/03/2025 6:00 PM EST Images from the original note were not included. Subjective History was provided by the patient. Sridevi Pruitt is a 64 y.o. female who presents for evaluation of facial rash, facial swelling, andbilateral breast pain for 1 days. Denies any new medications, unusual food consumption, new personal hygiene products, new cosmetics, or recent travel. Denies SOB/SHELTON. Denies WOLF. Denies tongue or throat swelling. Denies F/C/N/V/D. Recent mammogram was BI-RADS 2 (07/14/2024). Objective Vitals: 01/03/25 1737 BP: (!) 155/83 Pulse: 54 Resp: 16 Temp: 96.9 ??F (36.1 ??C) TempSrc: Temporal Weight: 194 lb (88 kg) Height: 5' 2 (1.575 m) Physical Exam Vitals reviewed. Constitutional: Appearance: Normal appearance. She is normal weight. HENT: Head: Normocephalic and atraumatic. Right Ear: Tympanic membrane, ear canal and external ear normal. Left Ear: Tympanic membrane, ear canal and external ear normal. Nose: Nose normal. Mouth/Throat: Mouth: Mucous membranes are moist. Pharynx: Oropharynx is clear. Eyes: Extraocular Movements: Extraocular movements intact. Conjunctiva/sclera: Conjunctivae normal. Cardiovascular: Rate and Rhythm: Normal rate and regular rhythm. Heart sounds: Normal heart sounds. Pulmonary: Effort: Pulmonary effort is normal. Breath sounds: Normal breath sounds. Chest: Comments: Tenderness of the bilateral breasts (upper lateral quadrants) without palpable mass; no skin dimpling or erythema; no axillary LAD Musculoskeletal: General: Normal range of motion. Cervical back: Normal range of motion and neck supple. Skin: General: Skin is warm and dry. Findings: Rash (flesh-colored wheals on forehead, nose, and bilateral cheeks.) present. Neurological: General: No focal deficit present. Mental Status: She is alert and oriented to person, place, and time. Mental status is at baseline. Psychiatric: Mood and Affect: Mood normal. Behavior: Behavior normal. Thought Content: Thought content normal. Judgment: Judgment normal. Diagnoses and all orders for this visit: Urticaria (Primary) - predniSONE (Deltasone) 20 MG tablet; Take 2 tablets (40 mg) by mouth Once per day for 5 days. Pain of both breasts Patient presents to [facility] with 1-day duration of facial urticaria No SOB/SHELTON; no wheezing; no oropharyngeal obstruction Unclear etiology for her urticaria Recommended Prednisone 40mg PO daily for 5 days Potential adverse effects of the medication reviewed Advised to monitor her BS while on the medication Also with bilateral breast tenderness (upper lateral quadrants); no palpable mass or axillary LAD BI-RADS 2 mammogram (06/2024) Advised to monitor for any persistent symptoms after the Prednisone course Indications for UC/ER use reviewed Advised to contact the clinic if any persistent or worsening symptoms documented in this encounter Plan of Treatment Upcoming Encounters Date Type Department Care Team (Late st Contact Info) Description 02/28/2025 2:00 PM EDT Office Visit [facility] OPTOMETRY [address] [place] [address] Gary, Tamie, OD 230 [place] [address] 03/22/2025 2:00 PM EDT Medication Management [facility] MEDICINE [address] [place] [address] Malu Medina PharmD 230 [place] [address] 05/10/2025 3:00 PM EDT Office Visit [facility] ADULT DENTAL [address] [place] [address] Adilene, Quiana [address] [place] [address] documented as of this encounter Goals Goal Patient Goal Type Associated Problems Recent Progress Patient-Stated? Author Blood Pressure < 140/90 Blood Pressure 130/80(2024 10:32 AM EST) No Jass-Karley Nashsa, PharmD Hemoglobin A1c < 7 Result Component 7.5( 3:10 PM EST) No JassMalu Padilla PharmD documented as of this encounter Visit Diagnoses Diagnosis Urticaria- Primary Unspecified urticaria Pain of both breasts documented in this encounter Additional Health Concerns Assessment Noted Time PHQ-9 Depression Total Score: 0 04/20/20 24 3:44 PM EDT documented as of this encounter Care Teams Cold Rolling Machine Setter Relationship Specialty Start Date End Date Libra Barone MD [address] [place] [address] PCP - General Family Medicine 11/23/18 Malu Medina PharmD [address] [place] [address] Pharmacist Internal Medicine 05/09/24 documented as of this encounter
--- OUTSIDE RECORDS SUMMARY | 2025-01-26 13:46 | XMS_ITS | Encounter Summary ---
Author Organization [employer] Address [address] [facility] 7t [place] [address] Care Team Providers Care Photovoltaic Installer Name Role Phone Libra Barone MD Primary Care Provider [phone]- [phone] Malu Medina PharmD Unavailable [phone] Reason for Visit * Reason Comments Care Coordination CHW outreach for SDO H PT-1 and food needs-referral completed Encounter Details Date Type Department Care Team (Latest Contact Info) Description 01/17/2025 Patient Outreach [facility] MEDICINE [address] [place] [address] Libra Barone MD [address] [place] [address] Care Coordination (CHW outreach for SDOH PT-1 and food needs-referral completed /) Social History Tobacco Use Types Packs/Day Years [...] as of this encounter Progress Notes * Martin Ndiaye - 01/17/2025 3:58 PM EST CHW Martin Ndiaye, placed outbound call to patient for assistance with SDOH as a referral was received by the provider. Patient's name and were confirmed. Patient screened positive for the following SDOH food insecurities. Patient states family in on SNAP program at this time. CHW referral patient to the local list of pantries in the area for help. PT-1 requested was send out in behalf of patient for futures appt. Patient verbalizes understanding, and able to agree with plan to follow up.Patient educated on extended clinic hours on Mondays through Wednesdays, and Walk-In Urgent Care Located in [facility] of [facility]. Patient provided with after-hours line for [facility], , which offer night time triage service and option to transfer to classification inspector provider if needed. documented in this encounter Plan of Treatment Upcoming Encounters Date Type Department Care Team ([facility] st Contact Info) Description 02/28/2025 2:00 PM EDT Office Visit [facility] OPTOMETRY [address] [place] [address] [place] [address] Dwight Vegan, OD [address] [place] [address] 03/22/2025 2:00 PM EDT Medication Management [facility] MEDICINE [address] [place] [address] Malu Medina PharmD [address] [place] [address] 05/10/2025 3:00 PM EDT Office Visit [facility] ADULT DENTAL [address] [place] [address] Adilene, Quiana [address] [place] [address] documented as of this encounter Goals Goal Patient Goal Type Associated Problems Recent Progress Patient-Stated? Author Blood Pressure < 140/90 Blood Pressure 130/80(2024 10:32 AM EST) No Malu Mckinnon, PharmD Hemoglobin A1c < 7 Result Component 7.5( 3:10 PM EST) No Malu Mckinnon PharmD documented as of this encounter Visit Diagnoses Not on filedocumented in this encounter Additional Health Concerns Assessment Noted Time PHQ-9 Depression Total Score: 0 04/20/20 24 3:44 PM EDT documented as of this encounter Care Teams Photovoltaic Installer Relationship Specialty Start Date End Date Libra Barone MD [address] [place] [address] PCP - General Family Medicine 11/23/18 Malu Medina, PharmD [address] [place] [address] Pharmacist Internal Medicine 05/09/24 documented as of this encounter
--- OUTSIDE RECORDS SUMMARY | 2025-01-26 13:46 | XMS_ITS | Encounter Summary ---
Author Organization [employer] Address [address] [place] [address] Care Team Providers Care Vice Admiral Name Role Phone Libra Barone MD Primary Care Provider +- [phone] Malu Medina PharmD Unavailable [phone] Encounter Details Date Type Department Care Team (Latest Contact Info) Description 01/26/2025 10:30 AM EST Office Visit [facility] MEDICINE 230 [place], [place] [phone] Hillary Sal MD 230 [place], [place] [phone] Acquired hypothyroidism (Primary Dx); Moderate persistent asthma without complication Social History Tobacco Use Types Packs/Day Years [...] Sign Reading Time Taken Comments Blood Pressure 130/80 01/26/2025 10:32 AM EST Pulse 56 01/26/2025 10:32 AM EST Temperature 36.6 ??C (97.9 ??F) 01/26/2025 10:[address] Respiratory Rate 20 01/26/2025 10:32 AM EST Oxygen Saturation - - Inhaled Oxygen Concentration - - Weight 88.5 kg (195 lb) 01/26/2025 10:32 AM EST Height 160.4 cm (5' 3.13 ) 01/26/2025 10:[address] Body Mass Index 34.4 01/26/2025 10:32 AM EST documented in this encounter Plan of Treatment Upcoming Encounters Date Type Department Care Team (Late st Contact Info) Description 02/28/2025 2:00 PM EDT Office Visit [facility] OPTOMETRY [address] [place] [address] Tamie Vega, OD [address] [place] [address] 03/22/2025 2:00 PM EDT Medication Management [facility] MEDICINE [address] [place] [address] Malu Medina, PharmD [address] [place] [address] 05/10/2025 3:00 PM EDT Office Visit [facility] ADULT DENTAL [address] [place] [address] Quiana Head [address] [place] [address] documented as of this encounter Goals Goal Patient Goal Type Associated Problems Recent Progress Patient-Stated? Author Blood Pressure < 140/90 Blood Pressure 130/80(2024 10:32 AM EST) No Malu Mckinnon, PharmD Hemoglobin A1c < 7 Result Component 7.5( 3:10 PM EST) No Malu Mckinnon PharmD documented as of this encounter Procedures Procedure Name Priority Date/Time Associated Diagnosis Comments TSH W/REFLEX TO FT4 Routine 01/26/2025 11:15 AM EST Acquired hypothyroidism documented in this encounter Results * TSH with Reflex to Free T4 (01/26/2025 11:15 AM EST) TSH reflex Free T4 1.82 0.32 - 4.0 uIU/mL [facility] Blood 01/26/2025 11:1 5 AM EST 01/26/2025 11:41 AM EST us Hillary Sal MD LAB BLOOD ORDERABLES Final Resul t [facility] [address] [place] [address] [phone] documented in this encounter Visit Diagnoses Diagnosis Acquired hypothyroidism- Primary Unspecified hypothyroidism Moderate persistent asthma without complication documented in this encounter Additional Health Concerns Assessment Noted Time PHQ-9 Depression Total Score: 0 04/20/20 24 3:44 PM EDT documented as of this encounter Care Teams Vice Admiral Relationship Specialty Start Date End Date Libra Barone MD [address] [place] [address] PCP - General Family Medicine 11/23/18 Malu Medina, PharmD [address] [place] [address] Pharmacist Internal Medicine 05/09/24 documented as of this encounter
--- OUTSIDE RECORDS SUMMARY | 2025-01-26 13:46 | XMS_ITS | Clinical Summary ---
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 Active gabapentin (Neurontin) 100 MG capsule Take 1 capsule by mouth every other night as needed 021 Active buPROPion XL (Wellbutrin XL) 150 MG 24 hr tablet Take 1 tablet by mouth at bed time. Active pantoprazole (ProtoNix) 40 MG EC tablet Take 1 tablet by mouth every 12 (twelve) hours. Active sennosides (Senokot) 8.6 MG tablet Take 2 tablets by mouth if needed at bedtime. Active sertraline (Zoloft) 100 MG tablet Take 150 mg by mouth 1 (one) time each day. Active simethicone (Mylicon,Gas-X) 180 MG capsule Take 1 capsule by mouth after meals and at bedtime as needed for bloating Active Alcohol Swabs (Alcohol Prep) 70 % padsIndications:H igh blood sugar USE DIRECTED TWICE DAILY 100 each 11 024 Active Spacer/Aero-Holdi ng Chambers (Compact Space Chamber) deviceIndications :Viral URI USE WITH INHALER EVERY 4 HOURS NEEDED (for asthma) 2 each 024 Active hydrocortisone 2.5 % cream Apply pea sized amount to skin bid for 1 week 15 g 024 Active metoclopramide (Reglan) 10 MG tablet Take 10 mg by mouth before breakfast, before lunch, and before evening meal. Active rosuvastatin (Crestor) 20 MG tabletIndications :Diabetes mellitus without complication (CMS/HCC) Take 1 tablet (20 mg) by mouth Once per day. 30 tablet 11 024 2024 Active fluticasone furoate (Arnuity Ellipta) 100 MCG/ACT inhalerIndication s:Mild intermittent asthma without complication INHALE 1 PUFF BY MOUTH ONCE DAILY RINSE MOUTH AFTER USING. 30 each Active Blood Glucose Monitoring Suppl (FreeStyle Lite) w/Device kit 1 each 2 times daily. 1 kit Active levothyroxine (Synthroid, Levoxyl) 75 MCG tabletIndications :Acquired hypothyroidism TAKE 1 TABLET BY MOUTH EVERY MORNING BEFORE BREAKFAST 90 tablet 2 Active valsartan (Diovan) 80 MG tabletIndications :Benign hypertension Take 1 tablet (80 mg) by mouth Once per day. 90 tablet 3 Active atenolol (Tenormin) 25 MG tabletIndications :Benign hypertension Take 1 tablet (25 mg) by mouth in the morning. 90 tablet 3 Active TRUEplus Lancets 33G miscIndications:H yperglycemia, unspecified,Diabe nathaly mellitus without complication (CMS/HCC) TEST BLOOD SUGAR TWICE DAILY 100 each Active FREESTYLE LITE test stripIndications: Hyperglycemia, unspecified,Diabe nathaly mellitus without complication ([facility]/HCC) TEST BLOOD SUGAR TWICE DAILY 100 strip Active Ventolin HFA 108 (90 Base) MCG/ACT inhalerIndication s:Viral URI INHALE 2 PUFFS BY MOUTH EVERY 4 HOURS NEEDED FOR WHEEZING OR SHORTNESS OF BREATH 18 g 1 Active acetaminophen (Tylenol) 500 MG tablet Take 1 tablet (500 mg) by mouth every 6 (six) hours if needed for mild pain for up to 20 doses. 20 tablet Active ibuprofen 600 MG tablet Take 1 tablet (600 mg) by mouth every 6 (six) hours if needed for mild pain for up to 20 doses. 20 tablet 01/30/2 025 Active metFORMIN XR (Glucophage-XR) 500 MG 24 hr tabletIndications :Diabetes mellitus without complication (CMS/HCC) Take 1 tablet (500 mg) by mouth with breakfast and with evening meal. Do not crush, chew, or split. 180 tablet 3 025 Active fluticasone (Flonase) 50 MCG/ACT nasal spray Administer 2 sprays into each nostril Once per day. Shake gently. Before first use, prime pump. After use, clean tip and replace cap. 48 g 3 025 Active fluticasone (Flonase) 50 MCG/ACT nasal spray Administer 2 sprays into each nostril in the morning. Shake gently. Before first use, prime pump. After use, clean tip and replace cap. 48 g 3 023 2024 Discontinued(R eorder (will not trigger notification to Pharmacy)) Bisacodyl EC 5 MG EC tablet TAKE 2 TABLETS BY MOUTH EVERY DAY AT BEDTIME FOR 2 DAYS DIRECTED 023 2024 Discontinued(M ed list cleanup (will not trigger notification to Pharmacy)) metFORMIN XR (Glucophage-XR) 500 MG 24 hr tabletIndications :Type 2 diabetes mellitus without complications (CMS/HCC) TAKE 1 TABLET BY MOUTH EVERY EVENING WITH MEALS DO NOT BREAK, CRUSH, DISSOLVE OR CHEW 90 tablet 3 025 2024 Discontinued(D ose adjustment) amoxicillin (Amoxil) 500 MG capsule Take 1 capsule (500 mg) by mouth every 8 (eight) hours for 7 days. 21 capsule 025 2024 predniSONE (Deltasone) 20 MG tabletIndications :Urticaria Take 2 tablets (40 mg) by mouth Once per day for 5 days. 10 tablet 025 2024 Active Problems Patient Care Coordination No te Formatting of this note migh t be different from the original. Enrolled in [facility] [place] [facility] with Malu Medina, LisaD, [facility] Problem Noted Date Diagnosed Date Asthma 01/26/2025 Dental caries into pulp 12/22/2024 Dental calculus 11/08/2024 Osteopenia 09/28/2024 Left ankle sprain 08/22/2024 Overview (08/22/2024): -08/21/24 XR/XR ankle LT min 3V IMPRESSION: Soft tissue prominence in the left ankle region which could reflect normal variation/body habitus or generalized edema. No fracture. Open fracture of tooth 06/23/2024 Bilateral hearing loss 06/22/2024 Overview (06/22/2024): -Abnormal audiogram at [facility] 05/2024 -ENT referral placed 06/22/24 History of postmenopausal bleeding 06/22/2024 Overview (09/21/2024): Seen by Dr. Alonso at [facility] 73. -co testing done, recommended ultrasound to measure the endometrial stripe; discussed with the patient that if the endometrial thickness is 4 mm or less the negative predictive value of endometrial pathology is 99%, otherwise If endometrial thickness is more than 4 mm will proceed withendometrial sampling versus hysteroscopy D C polypectomy depending on the ultrasound findings. -07/04/24 US/US pelvic and transvaginal IMPRESSION: Redemonstration of a 2.4 x 2.2 x 2.7 cm echogenic uterine lesion, previously 2.3 x 2.2 x 2.3 cm on pelvic ultrasound of 02/11/2023. 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 Endometrial thickness is 2 mm. Right ovary not visualized. Unremarkable left ovary. -Seen by Dr. 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 Recommended to Gyne Onc consult Laboratory Analyst Onc referral for a consult placed by Dr. Alonso 09/08/24 Seen by plumbing and heating contractor 09/21/24 MRI recommended and possible surery in the future. Follow up after MRI. (Laboratory Analyst noted does not have location of signature of provider) Erosive gastritis 05/09/2024 Chronic midline low back pain without sciatica 0 04/11/2024 Overview (04/11/2024): X ray L spine 5/19/24 IMPRESSION: Mild degenerative disc changes L5-S1 disc level. No visible acute fracture or dislocation seen. Missing teeth, acquired 12/17/2023 Transaminitis 08/19/2023 Overview (07/05/2024): Lab Results Component Value Date TOTALBILIRUB 0.4 05/02/2024 AST 14 05/02/2024 ALT 11 05/02/2024 ALT 13 07/16/2022 ALP 85 05/02/2024 HEPCAB Nonreactive 07/22/2023 HEPAIGM Nonreactive 07/22/2023 HEPBSURFAB REACTIVE 07/22/2023 HEPBCOREAB Nonreactive 07/22/2023 HEPBSURFACAG Negative 07/22/2023 MITOCHAB NEGATIVE 07/21/2023 SMAB <20 07/21/2023 -improved Assessment & Plan (08/19/2023 3:35 PM EDT): Lab Results Component Value Date AST 33 (H) 07/21/2023 ALT 168 (H) 07/21/2023 ALT 13 07/16/2022 ALP 181 (H) 07/21/2023 DIRECTBILIRU 0.1 07/22/2023 -Etiology not clear -Labs discussed 08/19/2023 Pain in both knees 08/19/2023 Overview (08/19/2023): PT referral done 08/19/2023 Assessment & Plan (08/19/2023 3:25 PM EDT): PT referral done 08/19/2023 Preventative health care 05/27/2023 Overview (04/19/2024): -next physical exam due after 05/27/2024. -eye care facilitated by -dental home is -health care proxy Assessment & Plan (08/19/2023 2:58 PM EDT): -next physical exam due after 05/27/2024. -eye care facilitated by -dental home is Assessment & Plan (05/27/2023 3:20 PM EDT): -next physical exam due after 05/27/2024. -eye care facilitated by -dental home is Abdominal pain 05/27/2023 Overview (05/27/2023): -Hx of IBS -She is followed by GI -Pt is on a PPI and Linzess. -CT scan on 03/2023 was unremarkable. -She will follow up with GI. Assessment & Plan (08/19/2023 2:58 PM EDT): Hx of IBS -She is followed by GI -Pt is on a PPI and Linzess. -CT scan on 03/2023 was unremarkable. -She will follow up with GI. Assessment & Plan (05/27/2023 3:37 PM EDT): -Hx of IBS -She is followed by GI -Pt is on a PPI and Linzess. -CT scan on 03/2023 was unremarkable. -She will follow up with GI. Delayed gastric emptying 05/22/2023 Epigastric pain 05/22/2023 Hemorrhoids 05/22/2023 Leiomyoma 05/22/2023 Tobacco dependence with current use 12/03/2022 Overview (08/19/2023): -reports 2 cigarrets per day on 11/2022 Assessment & Plan (08/19/2023 2:57 PM EDT): -reports 2 cigarrets per day on 11/2022 Assessment & Plan (12/03/2022 11:12 AM EST): -repots 2 cig per day on 11/2022 HPV in female 10/18/2022 Overview (05/22/2023): -Hx pap with Dr. Alonso 02/2021 [place], HPV positive on 01/2021 next due in 1 year Assessment & Plan (08/19/2023 2:56 PM EDT): -Hx pap with Dr. Alonso 02/2021 NILM, HPV positive on 01/2021 next due in 1 yea Assessment & Plan (05/27/2023 3:21 PM EDT): -Hx pap with Dr. Alonso 02/2021 NILM, HPV positive on 01/2021 next due in 1 year Recurrent major depression in partial remission 10/18/2022 Tubular adenoma 10/18/2022 Overview (06/22/2024): -Hx tubular adenoma 11/2011, 09/[address] Villagran -Normal colonoscopy Dec 2018 -tubular adenoma colonoscopy 11/13/23 Assessment & Plan (08/19/2023 2:57 PM EDT): -Hx tubular adenoma 11/2011, 09/[address] Villagran -Normal colonoscopy Dec 2018 Assessment & Plan (12/01/2022 12:20 PM EST): -Hx tubular adenoma 11/2011, 09/[address] Villagran -Normal colonoscopy Dec 2018 Benign hypertension 07/08/2022 Overview (06/21/2024): -diagnosed 04/2022 -cough with hernan inhibitor - Valsartan 80mg once daily added by CDTM 05/09/24 Assessment & Plan (08/19/2023 2:54 PM EDT): -Dx 04/2022 -cough with hernan inhibitor Assessment & Plan (12/01/2022 10:28 AM EST): -Dx 04/2022 -cough with hernan inhibitor Chronic idiopathic constipation 11/20/2020 Diabetes mellitus without complication 7 Overview (01/13/2025): Metformin ER 500mg once daily started by CDTM 09/28/24, increased to Metformin ER 500mg twice daily 01/11/25 Lab Results Component Value Date HGBA1C 7.5 (A) 01/11/2025 HGBA1C 7.4 (A) 09/28/2024 HGBA1C 6.9 (A) 04/20/2024 Lab Results Component Value Date CREATININE 0.75 09/13/2024 EGFR >60 09/13/2024 MICROALBCREU 4.5 08/21/2023 MICROALBCREU 5.8 2023 LDLCHOLCAL 71 09/13/2024 -Hernan/Arb: ALLERGY TO HERNAN INHIBITORS -Statin therapy: rosuvastatin 20mg -Diabetic eye exam: -Diabetic foot exam: -Continue lifestyle modifications Assessment & Plan (08/19/2023 3:29 PM EDT): Diabetes is not controlled. - Discussed ozempic, A1C not at goal. Given cardiac risk factors this is good choice -Will start 0.25 weekly 08/19/2023 Lab Results Component Value Date HGBA1C 6.8 (A) 05/27/2023 HGBA1C 6.9 (A) 12/03/2022 -No results found for: POCA1C - Lab Results Component Value Date MICROALBUR 9.0 2023 CREATININE 0.77 07/17/2023 -Hernan/Arb: -Statin therapy: -Diabetic eye exam: -Diabetic foot exam: -Continue lifestyle modifications -Continue current medications Assessment & Plan (05/27/2023 3:21 PM EDT): Diabetes is controlled. - Lab Results Component Value Date HGBA1C 6.9 (A) 12/03/2022 -No results found for: POCA1C - Lab Results Component Value Date MICROALBUR 0.4 07/01/2021 CREATININE 0.87 04/16/2023 -Changes: -Hernan/Arb: -Statin therapy: -Diabetic eye exam: -Diabetic foot exam: -Continue lifestyle modifications -Continue current medications History of diverticulitis 10/13/2013 Hypothyroidism 12/09/2012 Overview (08/12/2023): Lab Results Component Value Date TSH 1.56 2023 Assessment & Plan (08/19/2023 2:56 PM EDT): Lab Results Component Value Date TSH 1.56 2023 Pelvic pain 09/03/2012 Depressive disorder 05/14/2012 GERD (gastroesophageal reflux disease) 2 Resolved Problems Problem Noted Date Diagnosed Date Resolved Date Effusion of knee 05/09/2024 06/22/2024 Strain of lumbar region 05/09/2024 07/3 11/2023 Wheezing 05/09/2024 06/22/2024 Bronchitis 05/09/2024 06/22/2024 Toe pain, left 03/15/2024 04/19/2024 Assessment & Plan (03/15/2024 3:16 PM EDT): Alternate acetaminophen and naproxen PRN XRAY ordered Lip laceration 02/24/2024 04/19/2024 Dental plaque 12/17/2023 04/19/2024 Unsatisfactory cervical Papanicolaou smear 05/22/2023 06/22/2024 Urinary frequency 05/22/2023 04/19/2024 Bacterial vaginosis 12/03/2022 04/19/20 Knee pain 09/15/2013 06/22/2024 Candidiasis of vagina 09/03/20122023 Postmenopausal bleeding 09/03/201203/24 Encounters Date Type Department Care Team Description 01/26/2025 10:30 AM EST Office Visit [facility] [address] [place] [phone] Hillary Sal MD Acquired hypothyroidism (Primary Dx); Moderate persistent asthma without complication 01/26/2025 Travel 01/17/2025 Patient Outreach [address] [address] Libra Barone MD Care Coordination (CHW outreach for SDOH PT-1 and food needs-referral completed /) 01/17/2025 Patient Outreach [facility] [address] [place] [phone] Libra Barone MD Pre-visit Planning (SDOH Screening positive and Tobacco screening positive) 01/11/2025 Travel 01/03/2025 6:00 PM EST Office Visit [facility] [address] [place] [phone] Piter Owens MD Urticaria (Primary Dx); Pain of both breasts 01/03/2025 Travel 01/02/2025 Telephone [facility] [address] [place] [phone] Libra Barone MD Appointment Request 12/22/2024 11:30 AM EST Office Visit [facility] [address] [place] [address] Kirk Steven DDS Dental caries into pulp (Primary Dx) 12/20/[address] [address] Malu Medina PharmD Type 2 diabetes mellitus without complications ([facility]) 11/28/[address] [address] Ivana Fernando MD No Show 11/22/2024 Patient Outreach [address] [address] Libra Barone MD Pre-visit Planning (SDOH screening completed on 04/20/2024) 11/14/2024 Orders Only GENERIC EXTERNAL DATA DEPARTMENT Provider, Generic External Data 11/11/2024 Telephone [facility] [address] [place] [address] Kirk Steven DDS 11/08/2024 11:00 AM EST Office Visit [facility] [address] [place] [address] Quiana Head Encounter for dental examination (Primary Dx); Dental calculus; Missing teeth, acquired; Generalized gingival recession 11/01/2024 Travel from Last 3 Months Immunizations Name Administration Dates Next Due Hep A, Adult 04/20/2024,05/27/2023 Hep B, adult 03/08/1997,10/06/1996,09/08/1996 Influenza injectable quadriv alent IIV4 with preservative 10/18/2018,08/25/2016 Influenza injectable quadriv alent preservative free 08/19/2023,08/28/2022,09/27/2021,10/14,09/10/2017,11/19/2015 Influenza, High Dose Seasona l, Preservative Free 09/28/2024 Influenza, IIV3, injectable 10/26/2014,0 12/04/2008,10/14/2005,10/02,09/28/1996 Influenza, Split (incl. tatiana fied surface antigen) 09/09/2013,09/03/2012 MMR 01/22/1992 Moderna Covid-19 Vaccine 12+ 05/20/2021,04/10/20 21 Pneumococcal Conjugate PCV 20 12/03/2022 Pneumococcal Polysaccharide PPSV23 07/03/2015, TD (adult), 2 Lf tetanus tox oid, preservative free, adsorbed 08/28/2022,11/23/1992 Tdap 06/07/2022,05/27/2012 Zoster, Recombinant 05/27/2023,08/28/2022 Family History Medical History Relation Name Comments Prostate cancer Father Brain cancer Mother Relation Name Status Comments Father Mother Social History Tobacco Use Types Packs/Day Years [...] Orientation Straight 09/22/2022 10 :14 AM EDT Last Filed Vital Signs Vital Sign Reading Time Taken Comments Blood Pressure 130/80 01/26/2025 10:32 AM EST Pulse 56 01/26/2025 10:32 AM EST Temperature 36.6 ??C (97.9 ??F) 01/26/2025 10:[address] Respiratory Rate 20 01/26/2025 10:32 AM EST Oxygen Saturation 95% 03/25/2024 2:20 PM EDT Inhaled Oxygen Concentration - - Weight 88.5 kg (195 lb) 01/26/2025 10:32 AM EST Height 160.4 cm (5' 3.13 ) 01/26/2025 10:[address] Body Mass Index 34.4 01/26/2025 10:32 AM EST Plan of Treatment Upcoming Encounters Date Type Department Care Team (Late st Contact Info) Description 02/28/2025 2:00 PM EDT Office Visit [facility] [address] [place] [address] Gary, Tamie, OD [address] [place] [address] 03/22/2025 2:00 PM EDT Medication Management [facility] [address] [place] [address] Malu Medina, PharmD [address] [place] [address] 05/10/2025 3:00 PM EDT Office Visit [facility] [address] [place] [address] Quiana Head [address] [place] [address] Health Maintenance Due Date Last Done Comments CT Colonography 1960 FIT DNA/Cologuard 1960 FIT 1960 FOBT 1960 Sigmoidoscopy 1960 RSV Patients and Patients Aged 60 years or older (1 - Risk 60-74 years 1-dose series) 2019 COVID-19 Vaccine ( season) 2024 10/22/2022, 05/20/2021, 04/10/2021 Diabetes: Urine Protein Screening 08/21/2024 08/21/2023, 2023, 07/01/2021, Additional history exists Eye Exam 04/03/2025 04/03/2023, 03/23, 04/03/2023, Additional history exists Diabetes: Hemoglobin A1C 04/10/2025 025, 09/28/2024, 04/20/2024, Additional history exists Depression Screening 04/20/2025 04/20/2024, 04/20/20 24 Diabetes: Foot Exam 04/20/2025 04/20/2024, 04/20/2024, 04/20/2024, Additional history exists Dental Oral Exam 05/10/2025 11/08/2024, , 03/25/2021, Additional history exists Dental Prophylaxis 05/10/2025 11/08/2024, 0 12/17/2023, 10/09/2022, Additional history exists Lipid Panel 09/13/2025 09/13/2024, 05/23, 07/16/2022, Additional history exists Dental X-Ray: Full Mouth 10/10/2025 022, 02/28/2021, 02/02/2019, Additional history exists Dental X-Ray: Bitewings 12/23/2025 12/22/19 25, 11/08/2024, 12/17/2023, Additional history exists Tobacco Screening 01/03/2026 01/03/2025 SDOH Screening 01/17/2026 01/17/2025 Alcohol/Substance Use Screening 01/26/2026 01/26/2025 Mammogram 07/16/2026 07/16/2024, 04/0 03/2023, 02/25/2023, Additional history exists Colonoscopy 12/01/2027 12/01/2022, 12/24/2018 Colorectal Cancer Screening 12/01/2027 Cervical Cancer Screening 06/21/2029 HPV/Cotest 06/21/2029 06/21/2024, 01/22, 02/12/2021, Additional history exists Pap Smear 06/21/2029 06/21/2024, 05/23, 03/14/2021, Additional history exists DTaP/Tdap/Td Vaccines (4 - Td or Tdap) 08/28/2032 08/28/2022, 06/07/2022, 05/27/2012, Additional history exists Hepatitis B Vaccines Completed 03/08/1997, 10/06/1996, 09/08/1996 Pneumococcal Vaccine: 50+ Years Completed 12/03/2022, 07/03/2015, 10/08/1996 Zoster Vaccines Completed 05/27/2023, 08/28/2022 Hepatitis C Screening Completed 07/22/2023 , 2023, 2023 Hepatitis A Vaccines Completed 04/20/2024, 05/27/20 Influenza Vaccine Completed 09/28/2024, , 08/28/2022, Additional history exists HIB Vaccines Aged Out No longer eligi ble based on patient's age to complete this topic HPV Vaccines Aged Out No longer eligi ble based on patient's age to complete this topic IPV Vaccines Aged Out No longer eligi ble based on patient's age to complete this topic Meningococcal Vaccine Aged Out No kailey zeb eligible based on patient's age to complete this topic RSV under 20 months Aged Out No longe r eligible based on patient's age to complete this topic Rotavirus Vaccines Aged Out No longer eligible based on patient's age to complete this topic Goals Goal Patient Goal Type Associated Problems Recent Progress Patient-Stated? Author Blood Pressure < 140/90 Blood Pressure 130/80(2024 10:32 AM EST) No Malu Mckinnon PharmD Hemoglobin A1c < 7 Result Component 7.5( 3:10 PM EST) No Malu Mckinnon PharmD Procedures Procedure Name Priority Date/Time Associated Diagnosis Comments TSH W/REFLEX TO FT4 Routine 01/26/2025 1 1:15 AM EST Acquired hypothyroidism POCT GLYCATED HEMOGLOBIN, TOTAL Routine 01/11/2025 3:10 PM EST Diabetes mellitus without complication ([facility]) LIMITED ORAL EVALUATION - PROBLEM FOCUSED Routine 12/22/2024 11:30 AM EST BITEWING - SINGLE RADIOGRAPHIC IMAGE Routine 12/22/2024 11:30 AM EST INTRAORAL - PERIAPICAL EACH ADDITIONAL RADIOGRAPHIC IMAGE Routine 12/22/2024 11:30 AM EST INTRAORAL - PERIAPICAL FIRST RADIOGRAPHIC IMAGE Routine 12/22/2024 11:30 AM EST PALLIATIVE (EMERGENCY) TREATMENT OF DENTAL PAIN - MINOR PROCEDURE Routine 12/22/2024 11:30 AM EST XR CHEST 1 VIEW Routine 11/14/2024 4:35 PM EST SARS COV2/INFLUENZA A/B AND RSV RNA QL NAAT Routine 11/14/2024 3:52 PM EST STREP A NUCLEIC ACID Routine 11/14/2024 3:52 PM EST COMPREHENSIVE PERIODONTAL EVALUATION - NEW OR ESTABLISHED PATIENT Routine 11/08/2024 11:00 AM EST Dental calculus Missing teeth, acquired Generalized gingival recession Encounter for dental examination PERIODIC ORAL EVALUATION - ESTABLISHED PATIENT Routine 11/08/2024 11:00 AM EST Dental calculus Missing teeth, acquired Generalized gingival recession Encounter for dental examination INTRAORAL - PERIAPICAL EACH ADDITIONAL RADIOGRAPHIC IMAGE Routine 11/08/2024 11:00 AM EST Dental calculus Missing teeth, acquired Generalized gingival recession TOPICAL APPLICATION OF FLUORIDE VARNISH Routine 11/08/2024 11:00 AM EST Dental calculus Missing teeth, acquired Generalized gingival recession CASE PRESENTATION, DETAILED AND EXTENSIVE TREATMENT PLANNING Routine 11/08/2024 11:00 AM EST Dental calculus Missing teeth, acquired Generalized gingival recession INTRAORAL - PERIAPICAL EACH ADDITIONAL RADIOGRAPHIC IMAGE Routine 11/08/2024 11:00 AM EST Dental calculus Missing teeth, acquired Generalized gingival recession INTRAORAL - PERIAPICAL FIRST RADIOGRAPHIC IMAGE Routine 11/08/2024 11:00 AM EST Dental calculus Missing teeth, acquired Generalized gingival recession ORAL HYGIENE INSTRUCTIONS Routine 11/08/2024 11:00 AM EST Dental calculus Missing teeth, acquired Generalized gingival recession BITEWINGS - 4 RADIOGRAPHIC IMAGES Routine 11/08/2024 11:00 AM EST Dental calculus Missing teeth, acquired Generalized gingival recession Full PROPHYLAXIS - ADULT Routine 11/08/2024 11:00 AM EST Dental calculus Generalized gingival recession LIPID PANEL, STANDARD Routine 09/13/2024 10:28 AM EDT HM MAMMOGRAPHY Routine 07/16/2024 THINPREP IMAGING PAP AND HPV MRNA E6/E7 WITH REFLEX TO HPV 16,18/45 Routine 06/21/2024 9:52 AM EDT ALBUMIN, RANDOM URINE W/CREATININE Routine 08/21/2023 7:33 AM EDT Diabetes mellitus without complication (CMS/HCC) HEPATITIS PANEL, GENERAL Routine 07/22/2023 1:58 PM EDT HM COLONOSCOPY Routine 12/01/2022 12:16 PM EST INTRAORAL - COMPLETE SERIES OF RADIOGRAPHIC IMAGES Routine 10/09/2022 12:00 AM EST from Last 3 Months or Most Recently Relevant to Health Maintenance Results * TSH with Reflex to Free T4 (01/26/2025 11:15 AM EST) TSH reflex Free T4 1.82 0.32 - 4.0 uIU/mL [facility] Blood 01/26/2025 11:1 5 AM EST 01/26/2025 11:41 AM EST us Hillary Sal MD LAB BLOOD ORDERABLES Final Resul t [facility] [address] [place] [phone] * (ABNORMAL) POCT A1C (01/11/2025 3:10 PM EST) Hemoglobin A1C 7.5(A) 4.0 - 6.0 % QC Media Lot # [id number] Lot# Expiration Date , Blood 01/11/2025 3:10 PM EST us Libra Barone MD POINT OF CARE TEST ENTER/E DIT ORDERABLES Final Result * XR Chest 1 View (11/14/2024 4:35 PM EST) Anatomical Region Laterality Modality Chest Radiographic Courtney ging 11/14/2024 4:35 PM EST Narrative 11/14/2024 7:05 PM EST ? [facility] ?[address] ?[place] [address] ?XRay Report ? Signed ? Patient: Edmond,Sridevi I ?MR#: [id number] ?? [id number] ? : 1960 ?Acct:[id number] ? Age/Sex: 64 / F ?ADM Date: 11/14/24 ? Loc: HO.ED ? Attending Dr: ? Ordering Physician: Tristan Herrera ?? Date of Service: 11/14/24 ?? Procedure(s): XR chest 1V ?? Accession Number(s): [id number] ? cc: Tristan Herrera; Libra Barone MD ? EXAMINATION: ?? XR CHEST ? CLINICAL INFORMATION: ?? pneumonia ? COMPARISON: ?? 09/17/2023 ? TECHNIQUE: ?? Frontal view of the chest was obtained. ? FINDINGS: ?? No focal consolidation, pulmonary edema, or pleural effusion. ? Stable cardiomediastinal silhouette. ? XR/XR chest 1V ?? IMPRESSION: ?? No acute pulmonary disease. ? Electronically signed by: ??Oleg Ruano MD ??11/14/2024 07:01 PM ?? EST RP ? Dictated By: ?Oleg Ruano MD ? Signed By: ?<Electronically signed by Oleg Ruano MD in OV> ? 11/14/24 1901 ? DD/ 1635 ? TD/TT: 11/14/24 1640 ? Rn Document Improvement: DM ? Procedure Note Holli, Image - 11/14/[address] [facility] [address] [place] [address] XRay Report Signed Patient: Sridevi Pruitt IMR#: [id number] : 9Acct:[id number] Age/Sex: 64 / FADM Date: 11/14/24 Loc: HO.ED Attending Dr: Ordering Physician: Tristan Herrera Date of Service: 11/14/24 Procedure(s): XR chest 1V Accession Number(s): [id number] cc: Tristan Herrera; Libra Barone MD EXAMINATION: XR CHEST CLINICAL INFORMATION: pneumonia COMPARISON: 09/17/2023 TECHNIQUE: Frontal view of the chest was obtained. FINDINGS: No focal consolidation, pulmonary edema, or pleural effusion. Stable cardiomediastinal silhouette. XR/XR chest 1V IMPRESSION: No acute pulmonary disease. Electronically signed by: Oleg Ruano MD 11/14/2024 07:01 PM EST Dictated By: Oleg Ruano MD Signed By: <Electronically signed by Oleg Ruano MD inOV> 11/14/24 1901 DD/ 1635 TD/TT: 11/14/24 1640 Rn Document Improvement: ROSY [facility] External Provider IMG XR PROCEDURES Final Result * Strep A Nucleic Acid (11/14/2024 3:52 PM EST) IDNOW SERIAL# [id number] [facility] Strep A Nucleic Acid Negative Negative [facility] Comment:All test results mus t be correlated with clinical findings.This test has not been evaluated for monitoring treatment ofinfection.Additional follow-up testing using the culture method isrequired if the result is negative and clinical symptomspersist, or in the event of an acute rheumatic feveroutbreak. 11/14/2024 3:52 PM EST 11/14/2024 3:56 PM EST Generic External Data Provider LAB MICROBIOLOGY - GENERAL ORDERABLES Final Result Performing Organization Address [facility] Co de Phone Number [facility] [address] [place] [phone] * (ABNORMAL) SARS-CoV-2 RNA, Influenza A/B, and RSV RNA, Ql NAAT (11/14/2024 3:52 PM EST) Influenza A PCR NEGATIVE Negative [facility] Influenza B PCR NEGATIVE Negative [facility] Resp Syncy Virus RNA Qual PCR NEGATIVE Negative [facility] SARS COV2 PCR POSITIVE(A) Negative [facility] Comment:All test results mus t be correlated with clinical findings.Negative results do not preclude SARS-CoV2, influenza Avirus, influenza B virus and/or RSV infectionand should not be used as the sole basis for treatment orother patient management decisions. Negative results must becombined with clinical observations, patient history, andepidemiological information.This test has not been evaluated for monitoring treatment ofinfection.This test has been authorized by the FDA under an EmergencyUse Authorization (EUA) for use by authorized laboratories.Testing performed on the [email or web address] GeneXpert utilizingreal-time RT-PCR.All SARS CoV2 and positive influenza A/B results arereported to [facility]. 11/14/2024 3:52 PM EST 11/14/2024 3:56 PM EST Generic External Data Provider LAB MICROBIOLOGY - GENERAL ORDERABLES Final Result Performing Organization Address [facility] Co de Phone Number [facility] [address] [place] [phone] * Lipid Panel, Standard (09/13/2024 10:28 AM EDT) Triglycerides 80 <150 mg/dL [facility] Comment:Desirable Triglyceri de: less than 150 mg/dLBorderline High Triglyceride 150-199 mg/dLHigh Triglyceride: 200-499 mg/dLVery High Triglyceride: greater than or equal to 5OO mg/dL Cholesterol 139 <200 mg/dL [facility] Comment:Desirable Cholestero l: less than 200 mg/dLBorderline High Cholesterol: 200-239 mg/dLHigh Cholesterol: greater than 239 mg/dL LDL Cholesterol Calculated 71 <100 mg/dL [facility] Comment:Desirable LDL: less than 100 mg/dLNear Optimal/Above Optimal LDL: 110- 129 mg/dLBorderline High LDL: 130-159 mg/dLHigh LDL: 160-189 mg/dLVery High LDL: greater than or equal to 190 mg/dL HDL Cholesterol 52 >40 mg/dL [facility] Comment:Desirable HDL: great er than 40 mg/dL Note: This HDL assay may give artificially low results in patients with liver disease. 09/13/2024 10:2 8 AM EDT 09/13/2024 11:04 AM EDT Libra Barone MD LAB BLOOD ORDERABLES Final Result [facility] [address] [place] [phone] * Mammography (07/16/2024) Mammogram BIRADS 2 Normal, Abnormal, BIRADS 1 , BIRADS 2 Anatomical Region Laterality Modality Other Historical Provider HEALTH MAINTENANCE Final Result * ThinPrep Imaging Pap and HPV mRNA E6/E7 with Reflex to HPV 16,18/45 (06/21/2024 9:52 AM EDT) HPV 16 RNA NHP [facility] HPV 18/45 RNA [facility] HPV nRNA E6/E7 Not Detected Not Detected [facility] Comment:Methodology: Transcr iption-Mediated AmplificationThis assay detects E6/E7 viral messenger RNA (mRNA) from 14high-risk HPV types (16,18,31,33,35,39,45,51,52,56,58,59,66,68).Cervical sources are required for HPV testing.If a vaginal source from a patient who has had atotal hysterectomy with removal of cervix wassubmitted, please contact the testing laboratoryfor alternative testing options.For additional information, please refer tohttp://education.[employer]/faq/PRS651o2(This link if provided for information/educational purposes only.)THIS TEST WAS PERFORMED AT:[email or web address] [address] [id number] KHAN MD SOURCE: SEE NOTE [facility] Comment:Cervix Report Status: [facility] Clinical Information: SEE NOTE [facility] Comment:ROUTINE LMP: SEE NOTE [facility] Comment:PM Prev. PAP: SEE NOTE [facility] Comment:06/05/22 Prev. BX: SEE NOTE [facility] Comment:NONE GIVEN Statement Of Adequacy: SEE NOTE [facility] Comment:SATISFACTORY FOR GHAZAL LUATION General Categorization: [facility] Interpretation/Result: SEE NOTE [facility] Comment:Cytology Results: Ne gative for intraepitheliallesion or malignancy.Atrophic pattern; predominantly parabasal cells Cytology Comment SEE NOTE [facility] Comment:This Pap test has be en evaluated with computerassisted technology. Food Technician: SEE NOTE [facility] Comment:BK,CT(ASCP)CT screen ing location: [address] Review Food Technician: [facility] Pathologist [facility] PAP Infection [facility] See Note SEE NOTE [facility] Comment:EXPLANATORY NOTE:The Pap is a screening test for cervical cancer. It isnot a diagnostic test and is subject to false negativeand false positive results. It is most reliable when asatisfactory sample, regularly obtained, is submittedwith relevant clinical findings and history, and whenthe Pap result is evaluated along with historic andcurrent clinical information. 06/21/2024 9:52 AM EDT 06/21/2024 2:35 PM EDT Narrative [facility] - 06/23/2024 12:57 PM EDT SEE SCANNED RESULTS IN EMRWas previous PAP abnormal? YesIf PAP abnormal, please specify: hpv +Clinical Information: RoutineCollection Date: 06/21/24LMP: postmenopausalDate of previous PAP 06/05/22Performed by: : Cervical us Generic External Data Provider LAB PATHOLOGY ORD ERABLES Final Result Performing Organization Address [facility] Co de Phone Number [facility] [address] [place] [phone] * Albumin, Random Urine W/Creatinine (08/21/2023 7:33 AM EDT) Creatinine, Urine 152.98 mg/dL [facility] Microalbumin Urine 7.0 mg/L [facility] Microalbum Creatinine Ratio Ur 4.5 <30 ug/mg cr [facility] Comment:Albumin/Creatinine R atio Reference Ranges: Normal: < 30 ug/mg creatinine Microalbuminuria: 30 - 300 ug/mg creatinineClinical Albuminuria: > 300 ug/mg creatinine Urine 08/21/2023 7:33 AM EDT 08/21/2023 9:43 AM EDT Libra Barone MD LAB URINE ORDERABLES Final Result Performing Organization Address [facility] de Phone Number [facility] [address] [place] [phone] * Hepatitis Panel, General (07/22/2023 1:58 PM EDT) Hepatitis A IgM Nonreactive Nonreactive [facility] Comment:IgM antibodies to WOLF V not detected; does not exclude earlyacute or recovered HAV infection. ~Hepatitis B Surface Antibody REACTIVE Nonreactive [facility] Comment:REACTIVE: > 11.99 mI U/mL Hepatitis B Core Antibody Nonreactive Nonreactive [facility] Hepatitis C Antibody Nonreactive Nonreactive [facility] Comment:Antibodies to HCV no t detected; does not exclude early acuteHCV infection. Hepatitis B Surface Ag Negative Negative [facility] 07/22/2023 1:58 PM EDT 07/22/2023 1:59 PM EDT [facility] External Provider LAB BLO OD ORDERABLES Final Result [facility] [address] [place] [phone] * Hm Colonoscopy (12/01/2022 12:16 PM EST) Historical Provider MD HEALTH MAINTENANCE Final Result from Last 3 Months or Most Recently Relevant to Health Maintenance Insurance - [facility] - [facility] [address] [place] [id number] Care Teams Coil Spring Assembler Relationship Specialty Start Date End Date [place], MD Libra [address] [place] [phone] PCP - General Family Medicine 11/23/18 Malu Medina, LisaD [address] [place] [phone] Pharmacist Internal Medicine 05/09/24
--- OUTSIDE RECORDS SUMMARY | 2025-01-26 13:46 | XMS_ITS | Encounter Summary ---
Author Organization [facility] [facility] Address [address] [place] [address] Care Team Providers Care Supervisor Frame Assembly Name Role Phone LizabethLibra tyson MD Primary Care Provider [phone]- [phone] Malu Medina PharmD Unavailable [phone] Encounter Details Date Type Department Care Team (Latest Contact Info) Description 01/03/2025 Travel Social History Tobacco Use Types Packs/Day [...] Description 02/28/2025 2:00 PM EDT Office Visit [facility] OPTOMETRY [address] [place] [address] Gary, Tamie, OD [address] [place] [address] 03/22/2025 2:00 PM EDT Medication Management [facility] [address] [place] [address] Malu Medina, PharmD [address] [place] [address] 05/10/2025 3:00 PM EDT Office Visit [facility] ADULT DENTAL [address] [place] [address] Adilene, Quiana [address] [place] [address] documented as of this encounter Goals Goal Patient Goal Type Associated Problems Recent Progress Patient-Stated? Author Blood Pressure < 140/90 Blood Pressure 130/80(2024 10:32 AM EST) No Piers-Popyeel jeff, Malu, PharmD Hemoglobin A1c < 7 Result Component 7.5( 3:10 PM EST) No Piers-Popeyel Karley aguilarsa, PharmD documented as of this encounter Visit Diagnoses Not on filedocumented in this encounter Additional Health Concerns Assessment Noted Time PHQ-9 Depression Total Score: 0 04/20/20 24 3:44 PM EDT documented as of this encounter Care Teams Supervisor Frame Assembly Relationship Specialty Start Date End Date Libra Barone MD [address] [place] [address] PCP - General Family Medicine 11/23/18 Malu Medina, LisaD [address] [place] [phone] Pharmacist Internal Medicine 05/09/24 documented as of this encounter
--- OUTSIDE RECORDS SUMMARY | 2025-01-26 13:46 | XMS_ITS | Encounter Summary ---
Author Organization [employer] Address [address] [place] [address] Care Team Providers Care Emergency Preparedness Coordinator Name Role Phone Libra Barone MD Primary Care Provider [phone]- [phone] Malu Medina PharmD Unavailable [phone] Reason for Visit * Reason Onset Date Comments Appointment Request 08/22/2024 Encounter Details Date Type Department Care Team ([facility] Contact Info) Description 08/22/2024 Telephone [facility] [address] [place], [place] [phone] Libra Barone MD [address] [place], [place] [phone] Appointment Request Social History Tobacco Use Types [...] encounter Miscellaneous Notes * Telephone Encounter - Ramone Bartholomew - 08/22/2024 9:17 AM EDT Tc from patient calling to cancel appt for 08/26 and would like a call back to reschedule documented in this encounter Plan of Treatment Upcoming Encounters Date Type Department Care Team (Late st Contact Info) Description 02/28/2025 2:00 PM EDT Office Visit [facility] OPTOMETRY [address] [place] [address] Gary, Tamie, OD [address] [place] [address] 03/22/2025 2:00 PM EDT Medication Management [facility] [address] [place] [address] JassMalu Schroeder, PharmD [address] [place] [address] 05/10/2025 3:00 PM EDT Office Visit [facility] ADULT DENTAL [address] [place] [address] Quiana Head [address] [place] [address] documented as of this encounter Goals Goal [...] documented as of this encounter Care Teams Emergency Preparedness Coordinator Relationship Specialty Start Date End Date Libra Barone MD [address] [place] [address] PCP - General Family Medicine 11/23/18 Malu Medina PharmD [address] [place] [phone] Pharmacist Internal Medicine 05/09/24 documented as of this encounter
--- OUTSIDE RECORDS SUMMARY | 2025-01-26 13:46 | XMS_ITS | Encounter Summary ---
Author Organization [facility] Address [address] [address] [place] [address] Care Team Providers Care Optic Fibre Drawer Name Role Phone Lizabeth, Libra FARRELL Primary Care Provider + [phone] Malu Medina PharmD Unavailable [phone] Encounter Details Date Type Department Care Team (Latest Contact Info) Description 03/14/2019 Abstract [facility] CONVERSIONS Dental, Provider, DDS Social History Tobacco [...] Description 02/28/2025 2:00 PM EDT Office Visit [facility] OPTOMETRY [address] [place] [address] Gary, Tamie, OD [address] [place] [address] 03/22/2025 2:00 PM EDT Medication Management [facility] MED[facility] [address] [place] [address] Malu Medina, PharmD [address] [place] [address] 05/10/2025 3:00 PM EDT Office Visit [facility] ADULT DENTAL [address] [place] [address] Quiana Head [address] [place] [address] documented as of this encounter Visit Diagnoses Not on filedocumented in this encounter Care Teams Optic Fibre Drawer Relationship Specialty Start Date End Date Libra Barone MD [address] [place] [address] PCP - General Family Medicine 11/23/18 Malu Medina, Becky [address] [place] [phone] Pharmacist Internal Medicine 05/09/24 documented as of this encounter
--- OUTSIDE RECORDS SUMMARY | 2025-01-26 13:46 | XMS_ITS | Encounter Summary ---
Author Organization [employer] Address [address] [place] [address] Care Team Providers Care Process Coach Name Role Phone LizabethLibra tyson MD Primary Care Provider [phone]- [phone] Malu Medina PharmD Unavailable [phone] Encounter Details Date Type Department Care Team (Latest Contact Info) Description 01/11/2025 Travel Social History Tobacco Use Types Packs/Day [...] 2:00 PM EDT Office Visit [facility] OPTOMETRY [address] [place] [address] Gary, Tamie, OD [address] [place] [address] 03/22/2025 2:00 PM EDT Medication Management [facility] MEDICINE [address] [place] [address] Malu Medina, PharmD [address] [place] [address] 05/10/2025 3:00 PM EDT Office Visit [facility] ADULT DENTAL [address] [place] [address] Adilene, Quiana [address] [place] [address] documented as of this encounter Goals Goal Patient Goal Type Associated Problems Recent Progress Patient-Stated? Author Blood Pressure < 140/90 Blood Pressure 130/80(2024 10:32 AM EST) No Piers-Popeyel jeff, Malu, PharmD Hemoglobin A1c < 7 Result Component 7.5( 3:10 PM EST) No Piers-Popeyel Karley aguilarsa, PharmD documented as of this encounter Visit Diagnoses Not on filedocumented in this encounter Additional Health Concerns Assessment Noted Time PHQ-9 Depression Total Score: 0 04/20/20 24 3:44 PM EDT documented as of this encounter Care Teams Process Coach Relationship Specialty Start Date End Date Libra Barone MD [address] [place] [address] PCP - General Family Medicine 11/23/18 Malu Medina, LisaD [address] [place] [phone] Pharmacist Internal Medicine 05/09/24 documented as of this encounter
== END 2025-01-26 11:15 | disposition home or self-care (01) ==
LOC: HO.HHCL 11:14
PROVIDERS: Visit Provider Family Medicine
DX: E03.9 Hypothyroidism, unspecified (principal)
CPT/HCPCS: 36415; 84443

== ENCOUNTER 2025-03-28 16:13 | Outpatient (REF) | payer OTHER, SELFPAY | END 2025-03-28 16:14 | disposition home or self-care (01) | LOC: HO.HHCLNP 16:13 | PROVIDERS: Visit Provider Family Medicine | DX: B00.2 Herpesviral gingivostomatitis and pharyngotonsillitis (principal) | CPT/HCPCS: 36415; 87255 ==

== ENCOUNTER 2025-04-18 08:47 | Outpatient (REF) | payer OTHER, SELFPAY ==
[2025-04-18 11:26] LABS: Estimated Average Glucose 160 mg/dL; Hemoglobin A1c % 7.2 % (<6.0)
[2025-04-18 11:56] LABS: Alanine Aminotransferase 16 U/L (0-31); Albumin Level 4.3 g/dL (3.5-5.0); Alkaline Phosphatase 84 U/L (39-117); Anion Gap 11 (12-20); Aspartate Amino Transferase 21 U/L (5-31); Bilirubin Direct 0.2 mg/dL (0.0-0.5); Bilirubin Total 0.5 mg/dL (0.0-1.0); Blood Urea Nitrogen 15 mg/dL (9-16); Calcium 9.5 mg/dL (8.4-10.2); Carbon Dioxide 30 mmol/L (22-29); Chloride 102 mmol/L (96-108); Cholesterol 144 mg/dL (<200); Estimated Glomerular Filt Rate > 60; Glucose Random 147 mg/dL (60-115); HDL Cholesterol 53 mg/dL (>40); LDL Cholesterol Calculated 79 mg/dL (<100); Sodium 139 mmol/L (135-145); Total Protein 7.1 g/dL (6.5-8.0); Triglycerides 61 mg/dL (<150)
[2025-04-18 11:57] LABS: Creatinine Urine 214.51 mg/dL; Microalbum/Creatinine Ratio Ur 7.4 ug/mg cr (<30)
== END 2025-04-18 08:48 | disposition home or self-care (01) ==
LOC: HO.HHCL 08:47
PROVIDERS: Visit Provider Family Medicine
DX: E11.9 Type 2 diabetes mellitus without complications (principal)
CPT/HCPCS: 36415; 80048; 80061; 80076; 82043; 82570; 83036

== ENCOUNTER 2025-04-20 13:20 | Outpatient (AMB) | payer OTHER, SELFPAY ==
--- NOTE | 2025-04-20 13:22 | MHC.OFFVIS ---
Vital Signs 04/20/25 13:24 Height 5 ft 3 in Weight 182 lb 15.739 oz BMI 32.4 BP 121/58 L Blood Pressure Location Lt brachial Position Sitting Pulse 56 Intake Visit Reasons: Delayed gastric emptying Intake Note: Sridevi presents in the office as a follow up for delayed gastric emptying. CC: States that she is having a little bit of bleeding when she has a BM - diarrhea but no constipation and states she does have the reflux. Personal Injury Law Specialist Required: Yes Allergies No Known Allergies [No Known Allergies*] Allergy (Verified 04/20/25 13:26) HPI HPI Delayed gastric emptying: Details: Assessment & Plan (1) Delayed gastric emptying: Code(s): K30 - Functional dyspepsia Plan [place]an #Sarah AND tASHIBA LIVE She is agreeable to a 5 year follow-up. The procedure was well tolerated. The results were explained and the patient is agreeable to the follow-up interval as stated. The bowel pattern has returned to normal. Education was provided to tell any 1st degree relatives about their findings to be sure that they are screened by age 45. Educated that they will be put on a recall list when it is time for their repeat scope but should they move out of state or away from the hospital they will need to remember along with their primary to repeat the procedure in a timely fashion to avoid any adverse complications. She received the Linzess and 72 mcg it is moving her bowels well. She has moved the dosing to the afternoon because that works better with her personal schedule. She continues to have pain in the midline but only when she eats. She also did have a lot of nausea but she says that the Reglan at the 5 mg dose has been helpful for the pain and the nausea. Since we found any severe pathology on upper endoscopy I think will try increasing the dose to 10 mg 3 times a day. She does have some interactions with some psych meds but we will bring her back in a few weeks for close monitoring and make sure there is no problems. She tolerated the 5 mg dose without any adverse effects. She continues on pantoprazole twice a day which seems to be controlling any of her gastritis and her fundic erosions that seem to be healing. She also utilizes dicyclomine when she has bad cramping and she finds it useful although she only uses it intermittently. She also has simethicone available to her. Return office visit in 3 weeks Medications: New metoclopramide HCl (Reglan) 10 mg PO .tidac 90 tabs 6RF K30 - Functional dyspepsia Refilled linaclotide (Linzess) 72 mcg PO .q2pm 30 caps 6RF K59.04 - Chronic idiopathic constipation dicyclomine 20 mg PO TID 90 tabs 6RF R10.9 - Unspecified abdominal pain pantoprazole 40 mg PO BID 60 tabs 6RF K29.70 - Gastritis, unspecified, without bleeding, K21.9 - Gastro-esophageal reflux disease without esophagitis simethicone after meals 180 mg PO QID 120 caps 6RF 30 days Discontinued sennosides Discontinued Reason: Doctor's Order 17.2 mg (2 x 8.6 mg) PO BEDTIME 30 days 60 caps 6RF constipation TODAY'S VISIT [place] #Libra [place]aran[place] The increase of the reglan to 10ng is controlling her nausea well. SHe is no longer using LInzess, in fact 2 weeks ago she started having bowel irritability with soft stools passing multiple times a day - even without much warning. SHe also has LLQ discomfort she attributes her my diverticulitis although she has not had any acute attacks for many years. With medication review it seems that her bentyl has fallen off of her list, and this may be the etiology of al the above sx. We will restart tid. SHe is also having rectal bleeding intermittently, most likely hemorrhoids and will give cream. Her last scope was in 2022 with a large TA and repeat in 3 years. ROV 8 weeks. PFSH Medical History (Updated 04/20/25 @ 14:09 by LUIS ENRIQUE Cat) Abdominal bloating Postmenopausal bleeding Unsatisfactory cervical Papanicolaou smear Chronic idiopathic constipation Urinary frequency Diverticulitis Epigastric pain Transaminitis COVID-19 Well woman exam Bacterial vaginosis Uterine mass COVID-19 Well woman exam Smoker Bacterial vaginosis Hypertension Tubular adenoma of colon LLQ abdominal pain 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 Gastritis Surgical History Hx of hernia repair History of esophagogastroduodenoscopy (EGD) Hx of colonoscopy Family History Father Family history of prostate problems Colon cancer Mother Tumor Social History Household Members: None Alcohol intake: never Patient Tobacco Use Status: Current everyday Tobacco user Cigarettes Per Day: 2 Current occupational status: disabled Female Reproductive History Menstrual Age of Menarche: 13 Review of Systems Const Denies fatigue, Denies fever(s), Denies night sweats, Denies poor appetite and Denies weight loss ENT Reports Normal hearing present, Denies dental pain, Denies dysphagia, Denies hearing loss, Denies mouth pain, Denies odynophagia, Denies throat swelling, Denies tongue swelling and Reports other (Dentition adequate) Card Reports no additional complaints Resp Reports no additional complaints GI Details: Denies abdominal pain, Denies melena, Denies bloating, Denies hematochezia, Reports change in bowel habits, Denies constipation, Reports GI cramping, Denies dysphagia, Denies excessive flatus, Denies early satiety, Reports heartburn, Denies diarrhea, Reports nausea, Denies odynophagia, Denies vomiting and Denies hematemesis Skin/Breast Denies pruritus, Denies lesions, Denies rash and Denies jaundice Neuro Reports Normal hearing present and Denies Abnormal speech present Endo Denies fatigue Aller/Immun Denies throat swelling and Denies tongue swelling Physical Exam Vital Signs: Last Vital Signs Pulse 56 04/20/25 13:24 BP 121/58 L 04/20/25 13:24 BMI result Body Mass Index 32.4 Const General: cooperative, no acute distress, well developed and well groomed Nutritional Appearance: well nourished and obese Orientation/consciousness: oriented to person, oriented to place and oriented to time Limitations: language barrier HEENT Head: Yes normocephalic and Yes atraumatic Eyes General: appearance normal, both eyes and all related structures Pupils: Equal, round and reactive pupils present Neck Neck: Yes normal visual inspection and Yes no lymphadenopathy Thyroid: Thyroid normal Resp Effort & Inspection: normal respiratory effort and able to speak in complete sentences Auscultation: clear to auscultation bilaterally Cardio Rate: regular rate Rhythm: regular rhythm Heart sounds: Normal, physiologic split S2 sound present Peripheral pulses: radial pulses present and posterior tibial pulses present GI Inspection: No distended, Yes Abdominal panniculus present and Yes obesity Palpation (GI): Soft to palpation, nontender, no guarding, not rigid and No hepatosplenomegaly present Percussion: Yes normal to percussion Auscultation: normal bowel sounds Rectal Exam - Female: deferred Skin General skin exam: no rashes or lesions noted, turgor normal, skin not dry, no jaundice, No spider nevi and no striae Rashes: no rashes Nails: normal Neuro General: oriented to person, oriented to place and oriented to time Cranial nerves: Yes Equal, round and reactive pupils present and Yes Normal hearing present Speech: No Abnormal speech present Extrem General: Yes normal to inspection, No clubbing, No cyanosis and No edema Psych Appearance: grossly normal and well kempt Mental Status: mental status grossly normal Speech and movement: Normal speech and movement present Affect: normal affect Attitude: cooperative Thought process: Normal thought process present and not confabulating Thought content: Normal thought content present Insight: Limited insight present (Psych) Judgement: Limited judgement present (Psych) Assessment & Plan Assessment & Plan (1) Delayed gastric emptying: Code(s): K30 - Functional dyspepsia Category: Medical (2) Erosive gastritis: Code(s): K29.60 - Other gastritis without bleeding Category: Medical (3) Tubular adenoma of colon: Comment: 2022 scope= 2 large TA is repeat in 3 years; 2012 scope, 2019 neg repeat 5 years Code(s): D12.6 - Benign neoplasm of colon, unspecified Category: Medical (4) GERD (gastroesophageal reflux disease): Code(s): K21.9 - Gastro-esophageal reflux disease without esophagitis Category: Medical (5) Abdominal cramping: Code(s): R10.9 - Unspecified abdominal pain Category: Medical Plan [place]an #Libra Naranjo The increase of the reglan to 10ng is controlling her nausea well. She is no longer using LInzess, in fact 2 weeks ago she started having bowel irritability with soft stools passing multiple times a day - even without much warning. She also has LLQ discomfort she attributes her my diverticulitis although she has not had any acute attacks for many years. With medication review it seems that her bentyl has fallen off of her list, and this may be the etiology of al the above sx. We will restart tid. She is also having rectal bleeding intermittently, most likely hemorrhoids and will give cream. Her last scope was in 2022 with a large TA and repeat in 3 years. ROV 8 weeks. Medications: New hydrocortisone 2.5% (Proctosol HC) BE SURE TO INCLUDE RECTAL APPICATOR!! 1 appl [place] BID 30 grams 6RF hemorrhoids K64.9 - Unspecified hemorrhoids dicyclomine 20 mg PO TID 90 tabs 6RF 30 days R10.9 - Unspecified abdominal pain Refilled metoclopramide HCl (Reglan) 10 mg PO .tidac 90 tabs 6RF K30 - Functional dyspepsia pantoprazole 40 mg PO BID 60 tabs 6RF K21.9 - Gastro-esophageal reflux disease without esophagitis, K29.70 - Gastritis, unspecified, without bleeding simethicone 180 mg PO QID 120 caps 6RF Discontinued linaclotide (Linzess) Discontinued Reason: Patient Completed Course 72 mcg PO .q2pm 30 caps 6RF K59.04 - Chronic idiopathic constipation metronidazole Discontinued Reason: Patient Completed Course 500 mg PO BID 7 days 14 tabs 0RF Coding Level of Care Code Est Pt Level 3 (98516) Diagnoses Delayed gastric emptying K30 Erosive gastritis K29.60 Tubular adenoma of colon D12.6 GERD (gastroesophageal reflux disease) K21.9 Abdominal cramping R10.9
[2025-04-20 13:24] VITALS: BP 121/58; PULSE 56; BMI 32.4
== END 2025-04-20 14:09 | disposition home or self-care (01) ==
LOC: HO.HGI 13:21
PROVIDERS: PCP Family Medicine; Visit Provider Nurse Practitioner
DX: K30 Functional dyspepsia (principal); K29.60 Other gastritis without bleeding; D12.6 Benign neoplasm of colon, unspecified; K21.9 Gastro-esophageal reflux disease without esophagitis; R10.9 Unspecified abdominal pain
CPT/HCPCS: 99213

== ENCOUNTER → 2025-04-20 13:20 | Outpatient (BNVA) | payer OTHER, SELFPAY | PROVIDERS: PCP Family Medicine; Visit Provider Nurse Practitioner | DX: K30 Functional dyspepsia (principal); K59.04 Chronic idiopathic constipation; K29.70 Gastritis, unspecified, without bleeding; K21.9 Gastro-esophageal reflux disease without esophagitis; K29.60 Other gastritis without bleeding; K64.9 Unspecified hemorrhoids; D12.6 Benign neoplasm of colon, unspecified; R10.9 Unspecified abdominal pain | CPT/HCPCS: 99212 ==

== ENCOUNTER 2025-05-18 13:08 | Outpatient (REF) | payer OTHER, SELFPAY ==
--- NOTE | ~2025-05-18 | US_ITS ---
EXAMINATION: MM DIAGNOSTIC DIGITAL BREAST TOMOSYNTHESIS, BILATERAL Left Limited ultrasound. CLINICAL INFORMATION: Left breast pain. COMPARISON: Mammography: Comparison is made with relevant prior exams. TECHNIQUE: Digital breast mammography with tomosynthesis is performed in both the craniocaudal and mediolateral oblique views along with computer-aided detection (CAD). FINDINGS: The breasts are heterogeneously dense, which may obscure small masses (ACR BI-RADS breast composition Category c). Right: There are no significant masses, abnormal calcifications, or other abnormalities. Marker clip from previous needle core biopsy. Left: [place] marker in the lower inner left breast without underlying abnormality at the site of patient's pain. No suspicious calcifications masses or other abnormal findings. Targeted color Doppler ultrasound scanning in the area of the patient's left breast pain from 4-9 o'clock demonstrates normal fibronodular breast tissue. There is no sonographic abnormal findings. Results are provided to the patient at time of visit by the technologist. US/US breast LT limited mamm only IMPRESSION: Right: Benign. Left: No mammographic or sonographic abnormal finding to account for the patient's left breast pain. Recommend clinical evaluation and follow-up. ASSESSMENT: BI-RADS BI-RADS 2 - Benign Findings RECOMMENDATION: 1 year F/U This patient's information was entered into a reminder system with a target due date for their next mammogram. Electronically signed by: Donna Mooney DO 05/18/2025 02:43 PM EDT
--- OUTSIDE RECORDS SUMMARY | 2025-05-18 15:46 | XMS_ITS | Encounter Summary ---
Author Organization [employer] Address [address] [facility] [address] [place] [address] Care Team Providers Care Customer Care Voice Consultant Name Role Phone Libra Barone MD Primary Care Provider [phone] Malu Medina PharmD Unavailable aTmie Vega OD Unavailable February Unavailable Encounter Details Date Type Department Care Team (Latest Contact Info) Description 03/25/2021 Abstract [facility] CONVERSIONS Dental, Provider, DDS Social History Tobacco [...] Care Team (Late st Contact Info) Description 05/22/2025 3:00 PM EDT Medication Management [facility] MEDICINE [address] [place] [address] Malu Medina, PharmD [address] [place] [address] documented as of this encounter Visit Diagnoses Not on filedocumented in this encounter Care Teams Customer Care Voice Consultant Relationship Specialty Start Date End Date Libra Barnoe MD [address] [place], [place] [id number] PCP - General Family Medicine 11/23/18 Malu Medina, Becky [address] [place] [address] Pharmacist Internal Medicine 05/09/24 Tamie Vega OD [address] [place] [id number] Optometry 02/16/[address] [place] [address] Drive [address] [place] [address] Gastroenterology 04/20/25 documented as of this encounter
== END 2025-05-18 13:09 | disposition home or self-care (01) ==
LOC: HO.MAMMO 13:08
PROVIDERS: PCP Family Medicine; Visit Provider Internal Medicine
DX: N64.4 Mastodynia (principal)
CPT/HCPCS: 76642; 77062; 77066

== ENCOUNTER → 2025-05-18 14:00 | Outpatient (BNV) | payer OTHER, SELFPAY | PROVIDERS: PCP Family Medicine; Visit Provider Internal Medicine | DX: N64.4 Mastodynia (principal) | CPT/HCPCS: 76642; 77066; G0279 ==

== ENCOUNTER 2025-06-20 14:14 | Outpatient (AMB) | payer OTHER, SELFPAY ==
--- NOTE | 2025-06-20 14:16 | A.OFFVIS_ITS ---
Vital Signs 06/20/25 14:17 Height 5 ft 3 in Weight 186 lb 1.122 oz BMI 33.0 BP 117/66 Blood Pressure Location Rt brachial Position Sitting Pulse 57 Intake Visit Reasons: 8 wks Intake Note: Sridevi presents to in office follow up of rectal bleeding, CC: Patient c/o rectal pain, and bleeding with BMs, abdominal pain, and GERD. Diagnostic Cardiac Sonographer Required: Yes Diagnostic Cardiac Sonographer Language: Tunisian Allergies No Known Allergies (No Known Allergies*) Allergy (Verified 06/20/25 14:22) HPI HPI 8 wks: Details: Assessment & Plan (1) Delayed gastric emptying: Code(s): K30 - Functional dyspepsia Category: Medical (2) Erosive gastritis: Code(s): K29.60 - Other gastritis without bleeding Category: Medical (3) Tubular adenoma of colon: Comment: 2022 scope= 2 large TA is repeat in 3 years; 2011 scope, 2019 neg repeat 5 years Code(s): D12.6 - Benign neoplasm of colon, unspecified Category: Medical (4) GERD (gastroesophageal reflux disease): Code(s): K21.9 - Gastro-esophageal reflux disease without esophagitis Category: Medical (5) Abdominal cramping: Code(s): R10.9 - Unspecified abdominal pain Category: Medical Plan [place]ian #Libra LIve The increase of the reglan to 10ng is controlling her nausea well. She is no longer using LInzess, in fact 2 weeks ago she started having bowel irritability with soft stools passing multiple times a day - even without much warning. She also has LLQ discomfort she attributes her my diverticulitis although she has not had any acute attacks for many years. With medication review it seems that her bentyl has fallen off of her list, and this may be the etiology of al the above sx. We will restart tid. She is also having rectal bleeding intermittently, most likely hemorrhoids and will give cream. Her last scope was in 2022 with a large TA and repeat in 3 years. ROV 8 weeks. Medications: New hydrocortisone 2.5% (Proctosol HC) BE SURE TO INCLUDE RECTAL APPICATOR!! 1 appl SC BID 30 grams 6RF hemorrhoids K64.9 - Unspecified hemorrhoids dicyclomine 20 mg PO TID 90 tabs 6RF 30 days R10.9 - Unspecified abdominal pain Refilled metoclopramide HCl (Reglan) 10 mg PO .tidac 90 tabs 6RF K30 - Functional dyspepsia pantoprazole 40 mg PO BID 60 tabs 6RF K21.9 - Gastro-esophageal reflux disease without esophagitis, K29.70 - Gastritis, unspecified, without bleeding simethicone 180 mg PO QID 120 caps 6RF Discontinued linaclotide (Linzess) Discontinued Reason: Patient Completed Course 72 mcg PO .q2pm 30 caps 6RF K59.04 - Chronic idiopathic constipation metronidazole Discontinued Reason: Patient Completed Course 500 mg PO BID 7 days 14 tabs 0RF TODAYS VISIT [place]ian #V Live The bentyl resolved the LLQ pain, but she still has rectal pain with in termittent small amts of blood. She also has a lot of flatulence. SHe lost her proctosol cream. Try SIBO with augemntin and probitoic. If this does not work consider creon. Her current regimen is pantoprazole bid, reglan 10mg tid, simethicone. Re sending proctosol cream. ROV 6 weeks. [facility] Medical History (Updated 06/20/25 @ 14:41 by LUIS ENRIQUE Cat) Abdominal bloating Postmenopausal bleeding Unsatisfactory cervical Papanicolaou smear Chronic idiopathic constipation Urinary frequency Diverticulitis Epigastric pain Transaminitis COVID-19 Well woman exam Bacterial vaginosis Uterine mass COVID-19 Well woman exam Smoker Bacterial vaginosis Hypertension Tubular adenoma of colon LLQ abdominal pain 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 Gastritis Surgical History Hx of hernia repair History of esophagogastroduodenoscopy (EGD) Hx of colonoscopy Family History Father Family history of prostate problems Colon cancer Mother Tumor Social History Household Members: None Alcohol intake: never Patient Tobacco Use Status: Current everyday Tobacco user Cigarettes Per Day: 2 Current occupational status: disabled Female Reproductive History Menstrual Age of Menarche: 13 Review of Systems Const Denies fatigue, Denies fever(s), Denies night sweats, Denies poor appetite and Denies weight loss ENT Reports Normal hearing present, Denies dental pain, Denies dysphagia, Denies hearing loss, Denies mouth pain, Denies odynophagia, Denies throat swelling, Denies tongue swelling and Reports other (Dentition adequate) Card Reports no additional complaints Resp Reports no additional complaints GI Details: Denies abdominal pain, Denies melena, Reports bloating, Reports hematochezia, Denies constipation, Reports GI cramping, Denies dysphagia, Reports excessive flatus, Reports early satiety, Reports heartburn, Denies diarrhea, Denies nausea, Denies odynophagia, Denies vomiting and Denies hematemesis Skin/Breast Denies pruritus, Denies lesions, Denies rash and Denies jaundice Neuro Reports Normal hearing present and Denies Abnormal speech present Endo Denies fatigue Aller/Immun Denies throat swelling and Denies tongue swelling Physical Exam Vital Signs: Last Vital Signs Pulse 57 06/20/25 14:17 BP 117/66 06/20/25 14:17 BMI result Body Mass Index 33.0 Const General: cooperative, no acute distress, well developed and well groomed Nutritional Appearance: well nourished and obese Orientation/consciousness: oriented to person, oriented to place and oriented to time Limitations: language barrier HEENT Head: Yes normocephalic and Yes atraumatic Eyes General: appearance normal, both eyes and all related structures Pupils: Equal, round and reactive pupils present Neck Neck: Yes normal visual inspection and Yes no lymphadenopathy Thyroid: Thyroid normal Resp Effort & Inspection: normal respiratory effort and able to speak in complete sentences Auscultation: clear to auscultation bilaterally Cardio Rate: regular rate Rhythm: regular rhythm Heart sounds: Normal, physiologic split S2 sound present Peripheral pulses: radial pulses present and posterior tibial pulses present GI Inspection: No distended, Yes Abdominal panniculus present and Yes obesity Palpation (GI): Soft to palpation, nontender, no guarding, not rigid and No hepatosplenomegaly present Percussion: Yes normal to percussion Auscultation: normal bowel sounds Rectal Exam - Female: deferred Skin General skin exam: no rashes or lesions noted, turgor normal, skin not dry, no jaundice, No spider nevi and no striae Rashes: no rashes Nails: normal Neuro General: oriented to person, oriented to place and oriented to time Cranial nerves: Yes Equal, round and reactive pupils present and Yes Normal hearing present Speech: No Abnormal speech present Extrem General: Yes normal to inspection, No clubbing, No cyanosis and No edema Psych Appearance: grossly normal and well kempt Mental Status: mental status grossly normal Speech and movement: Normal speech and movement present Affect: normal affect Attitude: cooperative Thought process: Normal thought process present and not confabulating Thought content: Normal thought content present Insight: Limited insight present (Psych) Judgement: Limited judgement present (Psych) Assessment & Plan Assessment & Plan (1) Abdominal bloating: Code(s): R14.0 - Abdominal distension (gaseous) Category: Medical (2) Abdominal cramping: Code(s): R10.9 - Unspecified abdominal pain Category: Medical (3) Hemorrhoids: Code(s): K64.9 - Unspecified hemorrhoids Category: Medical (4) Delayed gastric emptying: Code(s): K30 - Functional dyspepsia Category: Medical (5) GERD (gastroesophageal reflux disease): Code(s): K21.9 - Gastro-esophageal reflux disease without esophagitis Category: Medical (6) Erosive gastritis: Code(s): K29.60 - Other gastritis without bleeding Category: Medical Plan [place]ian #V Live The bentyl resolved the LLQ pain, but she still has rectal pain with intermittent small amts of blood. She also has a lot of flatulence. SHe lost her proctosol cream. Try SIBO with augemntin and probitoic. If this does not work consider creon. Her current regimen is pantoprazole bid, reglan 10mg tid, simethicone. Re sending proctosol cream. ROV 6 weeks. Medications: New hydrocortisone 2.5% (Proctosol HC) BE SURE TO INCLUDE RECTAL APPICATOR!! 1 appl SC BID 30 grams 6RF hemorrhoids K64.9 - Unspecified hemorrhoids amoxicillin-pot clavulanate 875-125 mg 1 tab PO BID 20 tabs 0RF 10 days amoxicillin-pot clavulanate 875-125 mg 1 tab PO BID 10 days 20 tabs 0RF Refilled hydrocortisone 2.5% (Proctosol HC) BE SURE TO INCLUDE RECTAL APPICATOR!! 1 appl SC BID 30 grams 6RF hemorrhoids K64.9 - Unspecified hemorrhoids Coding Level of Care Code Est Pt Level 3 (31606) Diagnoses Abdominal bloating R14.0 Abdominal cramping R10.9 Hemorrhoids K64.9 Delayed gastric emptying K30 GERD (gastroesophageal reflux disease) K21.9 Erosive gastritis K29.60
[2025-06-20 14:17] VITALS: BP 117/66; PULSE 57; BMI 33.0
--- OUTSIDE RECORDS SUMMARY | 2025-06-20 14:56 | XMS_ITS | Encounter Summary ---
Author Organization [employer] Address [address] [facility] [address] [place] [address] Care Team Providers Care Armor Officer Name Role Phone Libra Barone MD Primary Care Provider [phone]- [phone] Malu Medina PharmD Unavailable Tamie Vega OD Unavailable February Unavailable Encounter Details Date Type Department Care Team (Latest Contact Info) Description 03/25/[address] [facility] CONVERSIONS Dental, Provider, DDS Social [...] Care Team (Late st Contact Info) Description 06/21/2025 3:00 PM EDT Medication Management [facility] MEDICINE [address] [place] [address] Malu Medina, PharmD [address] [place] [address] documented as of this encounter Visit Diagnoses Not on filedocumented in this encounter Care Teams Armor Officer Relationship Specialty Start Date End Date Libra Barone MD [address] [place], [place] [phone] PCP - General Family Medicine 11/23/18 Malu Medina, Becky [address] [place] [address] Pharmacist Internal Medicine 05/09/24 Tamie Vega OD [address] [place] [address] Optometry 02/16/[address] [place] [address] Drive [address]rd [place] [address] Gastroenterology 04/20/25 documented as of this encounter
== END 2025-06-20 14:41 | disposition home or self-care (01) ==
LOC: HO.HGI 14:15
PROVIDERS: PCP Family Medicine; Visit Provider Nurse Practitioner
DX: R14.0 Abdominal distension (gaseous) (principal); R10.9 Unspecified abdominal pain; K64.9 Unspecified hemorrhoids; K30 Functional dyspepsia; K21.9 Gastro-esophageal reflux disease without esophagitis; K29.60 Other gastritis without bleeding
CPT/HCPCS: 99213

== ENCOUNTER → 2025-06-20 14:14 | Outpatient (BNVA) | payer OTHER, SELFPAY | PROVIDERS: PCP Family Medicine; Visit Provider Nurse Practitioner | DX: K21.9 Gastro-esophageal reflux disease without esophagitis (principal); D12.6 Benign neoplasm of colon, unspecified; R10.9 Unspecified abdominal pain | CPT/HCPCS: 99212 ==

== ENCOUNTER 2025-06-26 12:57 | Outpatient (REF) | payer OTHER, SELFPAY ==
--- NOTE | ~2025-06-26 | US_ITS ---
Exam:US Extremity Nonvas Limited Lt TECHNIQUE: Grayscale and color Doppler imaging was performed through the popliteal fossa of the left knee. INDICATION: Acute pain in the left popliteal fossa Prior: None FINDINGS: Normal soft tissues are identified without mass, cyst, or other abnormality. Popliteal artery and vein were patent. The vein compressed under ultrasound direct pressure. US/US Extremity Nonvas Limited LT IMPRESSION: Unremarkable left popliteal fossa ultrasound. Electronically signed by: Arturo Pimentel MD 06/26/2025 01:27 PM EDT
--- OUTSIDE RECORDS SUMMARY | 2025-06-26 13:17 | XMS_ITS | Encounter Summary ---
Author Organization [employer] Address [address] [facility] [address] [place] [address] Care Team Providers Care Integrated Marketing Intern Name Role Phone Libra Barone MD Primary Care Provider [phone] Malu Medina PharmD Unavailable Tamie Vega OD Unavailable February Unavailable Encounter Details Date Type Department Care Team (Latest Contact Info) Description 03/25/2021 Abstract [facility] CONVERSIONS Dental, Provider, DDS Social History Tobacco Use Types Packs/Day Years Used Date Smoking Tobacco: Never Assessed Comments Unknown Sex and Gender Information Value Date Recorded Sex Assigned at Female 09/22/2022 10:14 AM EDT Legal Sex Female 10:14 AM EDT Gender Identity Female 09/22/2022 10:14 AM EDT Sexual Orientation Straight 09/22/2022 10 :14 AM EDT documented as of this encounter Plan of Treatment Not on file documented as of this encounter Visit Diagnoses Not on filedocumented in this encounter Care Teams Integrated Marketing Intern Relationship Specialty Start Date End Date Libra Barone MD [address] [place] [address] PCP - General Family Medicine 11/23/18 Malu Medina, PharmD [address] [place] [phone] Pharmacist Internal Medicine 05/09/24 Tamie Vega, REBECCA [address] [place] [phone] Optometry 02/16/[address] [place] [address] Drive 3rd Floor CECI Hernandez [address] Gastroenterology 04/20/25 documented as of this encounter
== END 2025-06-26 12:58 | disposition home or self-care (01) ==
LOC: HO.US 12:57
PROVIDERS: PCP Family Medicine; Visit Provider Family Medicine
DX: M25.562 Pain in left knee (principal)
CPT/HCPCS: 76882

== ENCOUNTER → 2025-06-26 13:02 | Outpatient (BNV) | payer OTHER, SELFPAY | PROVIDERS: PCP Family Medicine; Visit Provider Radiology Diagnostic Radiology | DX: M25.562 Pain in left knee (principal) | CPT/HCPCS: 76882 ==

== ENCOUNTER 2025-07-18 06:49 | Inpatient (IN) | payer OTHER, SELFPAY ==
--- OUTSIDE RECORDS SUMMARY | 2025-07-14 23:59 | XMS_ITS | Continuity of Care Document ---
Author Organization [facility] Address [address] [place] [address]- Care Team Providers Care Tab Card Press Operator Name Role Phone Libra Barone MD Primary Care Physician Encounter [facility] Date(s): 06/14/25 - 07/14/25 [facility] [address] [place], [place] [address] Encounter Type: Triage Allergies, Adverse Reactions, Alerts No Known Allergies Medications Colace sodium 100 mg oral capsule 1 capsule = 100 mg, By Mouth, 2 times a day, PRN for constipation, # 30 capsule, 0 Refills, Maintenance, 08/24/14 2:14:26 PM EDT, Capsule, [facility] Start Date: 08/24/14 Status: Ordered Quantity: 30.0 [...] Status: Ordered Repeat number: 1 nystatin topical [id number] u/gm powder 1 applicator, Topically, 3 times a day, # 30 Gm, 0 Refills, Maintenance, 08/24/14 2:14:56 PM EDT, [facility], 1 applicator Topically 3 times a [...] [facility] Outreach Member Role: PCP Address: [address] [place] [address] [place] [address] Telecom: Care Team Related Persons Name: LEEANN SPARROW Insurance Providers Guarantor name: [employer] [facility] Information #: 1 Payer: [employer] Payer Identifier: ALHAJI Member Number: [id number] Group Number: [id number] Subscriber Identifier: [id number] Relationship to Subscriber: self Coverage Type: Medicare Managed Care (Includes Medicare Advantage Plans) Coverage Verification Date: ALHAJI Telecom: ALHAJI Address:
--- OUTSIDE RECORDS SUMMARY | 2025-07-14 23:59 | XMS_ITS | Continuity of Care Document ---
Author Organization [facility] Address [address] [place] [address]- Care Team Providers Care Dog Groomer Name Role Phone Libra Barone MD Primary Care Physician Encounter [facility] Date(s): 06/09/25 - 07/14/25 [facility] [address] [place] [address]- Attending Physician: Rosanna Lowe MD Admitting Physician: Rosanna Lowe MD Encounter Type: Pre-OutPatient One Time Allergies, Adverse Reactions, Alerts No Known Allergies Medications Colace sodium 100 mg oral capsule 1 capsule = 100 mg, By Mouth, 2 times a day, PRN for constipation, # 30 capsule, 0 Refills, Maintenance, 08/24/14 2:14:26 PM EDT, [facility]apsule, [facility] Start Date: 08/24/14 Status: Ordered Quantity: [...] Status: Ordered Repeat number: 1 nystatin topical [id number] u/gm powder 1 applicator, Topically, 3 times a day, # 30 Gm, 0 Refills, Maintenance, 08/24/14 2:14:56 PM EDT, [facility], 1 applicator Topically 3 times a day [...] Team Personnel Name: Libra Barone MD Position: [facility] Outreach Member Role: PCP Address: [address] [place] [address] [place] [address] Telecom: Care Team Related Persons Name: LEEANN SPARROW Insurance Providers Guarantor name: [employer] Plan Information #: 1 Payer: [employer] Payer Identifier: ALHAJI Member Number: [id number] Group Number: [id number] Subscriber Identifier: [id number] Relationship to Subscriber: self Coverage Type: Medicare Managed Care (Includes Medicare Advantage Plans) Coverage Verification Date: ALHAJI Telecom: ALHAJI Address:
[2025-07-18] VITALS (13 sets, daily range): BP systolic 135–175; BP diastolic 71–86; PULSE 51–61; RESP 16–19; TEMP 36.3–37; O2SAT 94–98; BMI 32.9
--- NOTE | ~2025-07-18 | US_ITS ---
EXAMINATION: US ABDOMEN LIMITED CLINICAL INFORMATION: Right upper quadrant pain. COMPARISON: CT May 02, 2024 and hepatobiliary scan August 21, 2023 TECHNIQUE: Real-time imaging of the right upper quadrant abdominal viscera. FINDINGS: GALLBLADDER: Echogenic shadowing stones are present layering within the gallbladder. There is an echogenic focus without posterior acoustic shadowing in the neck of the gallbladder. Trace pericholecystic fluid is present. Portions of the gallbladder wall appear mildly thickened. However, the lead neurodiagnostic technologist reports no gallbladder tenderness with transducer pressure over the gallbladder. COMMON BILE DUCT: Normal in caliber measuring 0.6 cm in diameter. US/US abdomen limited IMPRESSION: Cholelithiasis with possible cholecystitis. There is echogenic material in the neck of the gallbladder that does not shadow. This could represent a polyp, sludge, or small stone. Trace pericholecystic fluid is noted. Gallbladder wall thickness is mostly within normal limits, however there are focal areas of mild thickening. Electronically signed by: Arturo Pimentel MD 07/18/2025 10:22 AM EDT
--- OUTSIDE RECORDS SUMMARY | 2025-07-18 07:45 | XMS_ITS | Encounter Summary ---
Author Organization [email or web address] Address [address] [facility] [address] [place] [address] Care Team Providers Care Dining Room Attendant Cafeteria Name Role Phone Libra Barone MD Primary Care Provider [phone]- [phone] Malu Medina PharmD Unavailable Tamie Vega OD Unavailable [phone] February Unavailable Encounter Details Date Type Department Care Team (Latest Contact Info) Description 03/25/2021 Abstract [facility] CONVERSIONS Dental, Provider, DDS Social History [...] Care Team (Late st Contact Info) Description 07/26/2025 3:00 PM EDT Medication Management [facility] MEDICINE [address] [place] [address] Malu Medina, PharmD [address] [place] [address] documented as of this encounter Visit Diagnoses Not on filedocumented in this encounter Care Teams Dining Room Attendant Cafeteria Relationship Specialty Start Date End Date Libra Barone MD [address] [place], [place] [phone] PCP - General Family Medicine 11/23/18 Malu Medina, Becky [address] [place] [address] Pharmacist Internal Medicine 05/09/24 Tamie Vega OD [address] [place] [phone] Optometry 02/16/[address] [place] [address] Drive 3rd [place] [address] Gastroenterology 04/20/25 documented as of this encounter
--- OUTSIDE RECORDS SUMMARY | 2025-07-18 07:46 | XMS_ITS | Clinical Summary ---
Author Organization [employer] Address [address] [place] [address] Care Team Providers Care Product Support Representative Name Role Phone Libra Barnoe MD Primary Care Provider [phone] Malu Medina PharmD Unavailable [phone] Tamie Vega OD Unavailable February Unavailable Allergies Active Allergy Reactions Criticality Noted Date Comments Hernan Inhibitors Cough 12/03/2022 Medications buPROPion XL (Wellbutrin XL) 300 MG 24 hr tablet Take 1 tablet by mouth in the morning. Active buPROPion XL (Wellbutrin XL) 150 MG [...] at bedtime as needed for bloating Active Spacer/Aero-Holdi ng Chambers (Compact Space Chamber) deviceIndications :Viral URI USE WITH INHALER EVERY 4 HOURS NEEDED (for asthma) 2 each 024 Active metoclopramide (Reglan) 10 MG tablet Take 10 mg by mouth before breakfast, before lunch, and before evening meal. 024 Active valsartan (Diovan) 80 MG tabletIndications :Benign hypertension Take 1 tablet (80 mg) by mouth Once per day. 90 tablet 3 024 Active TRUEplus Lancets 33G miscIndications:H yperglycemia, unspecified,Diabe nathaly mellitus without complication (CMS/HCC) TEST BLOOD SUGAR TWICE DAILY 100 each 11 024 Active FREESTYLE LITE test stripIndications: Hyperglycemia, unspecified,Diabe nathaly mellitus without complication (CMS/HCC) TEST BLOOD SUGAR TWICE DAILY 100 strip Active Ventolin HFA 108 (90 Base) MCG/ACT inhalerIndication s:Viral URI INHALE 2 PUFFS BY MOUTH EVERY 4 HOURS NEEDED FOR WHEEZING OR SHORTNESS OF BREATH 18 g 024 Active metFORMIN XR (Glucophage-XR) 500 MG 24 hr tabletIndications :Diabetes mellitus without complication (CMS/HCC) Take 1 tablet (500 mg) by mouth with breakfast and with evening meal. Do not crush, chew, or split. 180 tablet 3 025 Active levothyroxine (Synthroid, Levoxyl) 75 MCG tabletIndications :Acquired hypothyroidism TAKE 1 TABLET BY MOUTH EVERY MORNING BEFORE BREAKFAST 90 tablet 3 025 Active fluticasone (Flonase) 50 MCG/ACT nasal sprayIndications: Seasonal allergies Administer 2 sprays into each nostril Once per day. Shake gently. Before first use, prime pump. After use, clean tip and replace cap. 48 g 025 Active clotrimazole (Lotrimin) 1 % creamIndications: Candidiasis Apply topically 2 times daily. 14 g 025 Active rosuvastatin (Crestor) 20 MG tabletIndications :Diabetes mellitus without complication (CMS/HCC) Take 1 tablet (20 mg) by mouth Once per day. 30 tablet 025 2025 Active acyclovir (Zovirax) 800 MG tabletIndications :Oral herpes simplex infection TAKE 3 TABLETS BY MOUTH EVERY DAY FOR 2 DAYS 6 tablet 025 Active fluticasone furoate (Arnuity Ellipta) 100 MCG/ACT inhalerIndication s:Mild intermittent asthma without complication INHALE 1 PUFF BY MOUTH EVERY DAY AT THE SAME TIME. RINSE MOUTH AFTER USING. 30 each 025 Active Alcohol Swabs (Alcohol Prep) 70 % padsIndications:H igh blood sugar USE DIRECTED TWICE DAILY 100 each 11 025 Active hydrocortisone 2.5 % cream APPLY 1 APPLICATION RECTALLY TWICE DAILY NEEDED FOR HEMORRHOIDS 025 Active dicyclomine (Bentyl) 20 MG tablet 025 Active atenolol (Tenormin) 25 MG tabletIndications :Benign hypertension TAKE 1 TABLET BY MOUTH EVERY MORNING 90 tablet 3 025 Active atenolol (Tenormin) 25 MG tabletIndications :Benign hypertension Take 1 tablet (25 mg) by mouth in the morning. 90 tablet 3 024 2024 Discontinued Active Problems Patient Care Coordination No te Formatting of this note migh t be different from the original. Enrolled in [facility] DM clinic with Malu Medina, LisaD, [facility][NOTE 3] Problem Noted Date Diagnosed Date Oral herpes simplex infection 03/28/2025 Overview (03/28/2025): Two extraoral, circular, eryhtematous with yellow crusting lesions on mid upper and lower lip. Suspect herpes simplex virus. See image in chart. - prescribed acyclovir (Zovirax) 800 MG 03/28/25 - collected Herpes Simple Virus Culture 03/28/25 Assessment & Plan (03/28/2025 2:15 PM EDT): Two extraoral, circular, eryhtematous with yellow crusting lesions on mid upper and lower lip. Suspect herpes simplex virus. See image in chart. - prescribed acyclovir (Zovirax) 800 MG 03/28/25 - collected Herpes Simple Virus Culture 03/28/25 Class 2 severe obesity due t o excess calories with serious comorbidity and body mass index (BMI) of 36.0 to 36.9 in adult 03/28/2025 Mastalgia in female 03/08/2025 Overview (05/19/2025): 05/19/25 US/US breast LT limited mamm only IMPRESSION: Right: Benign. Left:No mammographic or sonographic abnormal finding to account for the patient's left breast pain. Recommend clinical evaluation and follow-up. ASSESSMENT: BI-RADS BI-RADS 2 - Benign Findings RECOMMENDATION: 1 year F/U Assessment & Plan (03/08/2025 3:28 PM EDT): On left side, order left diagnostic mammogram plus breast ultrasound Advised to avoid caffeine, nicotine and sodas Take Tylenol as needed and follow-up with PCP Asthma 01/26/2025 Overview (04/19/2025): Well controlled. -continue Ventolin HFA 108 (90 Base) MCG/ACT inhaler Assessment & Plan (04/19/2025 2:43 PM EDT): Well controlled. -continue Ventolin HFA 108 (90 Base) MCG/ACT inhaler Osteopenia 09/28/2024 Left ankle sprain 08/22/2024 Overview (08/22/2024): -08/21/24 XR/XR ankle LT min 3V IMPRESSION: Soft tissue prominence in the left ankle region which could reflect normal variation/body habitus or generalized edema. No fracture. Bilateral hearing loss 06/22/2024 Overview (06/22/2024): -Abnormal audiogram at [facility] 05/2024 -ENT referral placed 06/22/24 Assessment & Plan (04/19/2025 2:34 PM EDT): -Abnormal audiogram at [facility] 05/2024 -ENT referral placed 06/22/24 History of postmenopausal bleeding 06/22/2024 Overview (04/19/2025): Seen by Dr. Alonso at [facility] 990/24. -co testing done, recommended ultrasound to measure [...] 1.7-2.7 cm. Recommended to Gyne Onc consult Wheel Fitter Onc referral for a consult placed by Dr. Alonso 09/08/24 Seen by signalman 09/21/24 MRI recommended and possible surery in the future. Follow up after MRI. (Wheel Fitter noted does not have location of signature of provider) -Saw ALGORITHM DESIGN ENGINEER at [facility] 09/21 for intake and a Televist 10/10/24. Per note by Dr. Rosanna Lowe who noted size and growth is stable dating back to 2020, recommending annual pelvic US. Assessment & Plan (04/19/2025 2:45 PM EDT): Seen by Dr. Alonso at [facility] 730/. -co testing done, recommended ultrasound to measure [...] 1.7-2.7 cm. Recommended to Gyne Onc consult Wheel Fitter Onc referral for a consult placed by Dr. Alonso 09/08/24 Seen by signalman 09/21/24 MRI recommended and possible surery in the future. Follow up after MRI. (Wheel Fitter noted does not have location of signature of provider) -Saw ALGORITHM DESIGN ENGINEER at [facility] 09/21 for intake and a Televist 10/10/24. Per note by Dr. Rosanna Lowe who noted size and growth is stable dating back to 2020, recommending annual pelvic US. Erosive gastritis 05/09/2024 Overview (04/20/2025): -followed by Tanya Lai NP note from 04/20/25 reviewed Chronic midline low back pain without sciatica 0 04/11/2024 Overview (04/11/2024): X ray L spine 04/10/24 IMPRESSION: Mild degenerative disc changes L5-S1 disc level. No visible acute fracture or dislocation seen. Transaminitis 08/19/2023 Overview (04/19/2025): Lab Results Component Value Date TOTALBILIRUB 0.5 04/18/2025 AST 21 04/18/2025 ALT 16 04/18/2025 ALT 13 07/16/2022 ALP 84 04/18/2025 HEPCAB Nonreactive 07/22/2023 HEPAIGM Nonreactive 07/22/2023 HEPBSURFAB REACTIVE 07/22/2023 HEPBCOREAB Nonreactive 07/22/2023 HEPBSURFACAG Negative 07/22/2023 MITOCHAB NEGATIVE 07/21/2023 SMAB <20 07/21/2023 -improved Assessment & Plan (04/19/2025 2:32 PM EDT): Lab Results Component Value Date TOTALBILIRUB 0.5 04/18/2025 AST 21 04/18/2025 ALT 16 04/18/2025 ALT 13 07/16/2022 ALP 84 04/18/2025 HEPCAB Nonreactive 07/22/2023 HEPAIGM Nonreactive 07/22/2023 HEPBSURFAB [...] 3:25 PM EDT): PT referral done 08/19/2023 Other specified health status 05/27/2023 Overview (04/19/2025): -next comprehensive annual evaluation due after 04/19/26 -eye care facilitated by [facility] -dental home is [facility] -health care proxy given and filed 04/19/25 Assessment & Plan (04/19/2025 2:32 PM EDT): -next comprehensive annual evaluation due after 04/19/26 -eye care facilitated by [facility] -dental home is [facility] -health care proxy given and filed 04/19/25 Assessment & Plan (08/19/2023 2:58 PM EDT): [...] up with GI. Delayed gastric emptying 05/22/2023 Hemorrhoids 05/22/2023 Leiomyoma 05/22/2023 Tobacco dependence with current use 12/03/2022 Overview (08/19/2023): -reports 2 cigarrets per day on 11/2022 Assessment & Plan (08/19/2023 2:57 PM EDT): -reports 2 cigarrets per day on 11/2022 Assessment & Plan (12/03/2022 11:12 AM EST): -repots 2 cig per day on 11/2022 HPV in female 10/18/2022 Overview (04/19/2025): -Hx pap with Dr. Alonso 02/2021 NILM, HPV positive on 01/2021 next due in 1 year -Repeat PAP 06/04/2022 NILM, HRHPV. Next due 06/04/2027 Assessment & Plan (08/19/2023 2:56 PM EDT): -Hx pap with Dr. Alonso 02/2021 NILM, HPV positive on 01/2021 next due in 1 yea Assessment & Plan (05/27/2023 3:21 PM EDT): -Hx pap with Dr. Alonso 02/2021 NILM, HPV positive on 01/2021 next due in 1 year Recurrent major depression in partial remission 10/18/2022 Tubular adenoma 10/18/2022 Overview (06/22/2025): -Hx tubular adenoma 11/2011, 09/[address] Villagran -Normal colonoscopy Dec 2018 -tubular adenoma colonoscopy 11/13/23 -seen by Tanya Lai Assessment & Plan (08/19/2023 2:57 PM EDT): -Hx tubular adenoma 11/2011, 09/[address] Villagran -Normal colonoscopy Dec 2018 Assessment & Plan (12/01/2022 12:20 PM EST): -Hx tubular adenoma 11/2011, 09/[address] Villagran -Normal colonoscopy Dec 2018 Benign hypertension 07/08/2022 Overview (04/19/2025): -diagnosed 04/2022 -cough with hernan inhibitor -Blood pressure is at goal -Continue lifestyle modifications -Continue current medications - Valsartan 80mg once daily added by CDTM 05/09/24 Assessment & Plan (04/19/2025 2:34 PM EDT): -diagnosed 04/2022 -cough with hernan inhibitor -Blood pressure is at goal -Continue lifestyle modifications -Continue current medications - Valsartan 80mg once daily added by CDTM 05/09/24 Assessment & Plan (08/19/2023 2:54 PM EDT): -Dx 04/2022 -cough with hernan inhibitor Assessment & Plan (12/01/2022 10:28 AM EST): -Dx 04/2022 -cough with hernan inhibitor Chronic idiopathic constipation 11/20/2020 Diabetes mellitus without complication 7 Overview (04/19/2025): Metformin ER 500mg once daily started by CDTM 09/28/24, increased to Metformin ER 500mg twice daily 01/11/25 Lab Results Component Value Date HGBA1C 7.2 (H) 04/18/2025 HGBA1C 7.5 (A) 01/11/2025 HGBA1C 7.4 (A) 09/28/2024 Lab Results Component Value Date CREATININE 0.72 04/18/2025 EGFR >60 04/18/2025 MICROALBCREU 7.4 04/18/2025 MICROALBCREU 4.5 08/21/2023 LDLCHOLCAL 79 04/18/2025 -Hernan/Arb: ALLERGY TO HERNAN INHIBITORS -Statin therapy: rosuvastatin 20mg -Diabetic eye exam: done 02/28/25 -Diabetic foot exam: done 04/19/25 -Continue lifestyle modifications -On Metformin ER 500mg once daily - Ordered future labs 03/28/25 Assessment & Plan (04/19/2025 2:33 PM EDT): Metformin ER 500mg once daily started by CDTM 09/28/24, increased to Metformin ER 500mg twice daily 01/11/25 Lab Results Component Value Date HGBA1C 7.2 (H) 04/18/2025 HGBA1C 7.5 (A) 01/11/2025 HGBA1C 7.4 (A) 09/28/2024 Lab Results Component Value Date CREATININE 0.72 04/18/2025 EGFR >60 04/18/2025 MICROALBCREU 7.4 04/18/2025 MICROALBCREU 4.5 08/21/2023 LDLCHOLCAL 79 04/18/2025 -Hernan/Arb: ALLERGY TO HERNAN INHIBITORS -Statin therapy: rosuvastatin 20mg -Diabetic eye exam: done 02/28/25 -Diabetic foot exam: done 04/19/25 -Continue lifestyle modifications -On Metformin ER 500mg once daily - Ordered future labs 03/28/25 Assessment & Plan (03/28/2025 2:16 PM EDT): Metformin ER 500mg once daily started by [...] -Statin therapy: rosuvastatin 20mg -Diabetic eye exam: done 02/28/25 -Diabetic foot exam: -Continue lifestyle modifications -On Metformin ER 500mg once daily - Ordered future labs 03/28/25 Assessment & Plan (08/19/2023 3:29 PM EDT): [...] History of diverticulitis 10/13/2013 Hypothyroidism 12/09/2012 Overview (04/19/2025): Lab Results Component Value Date TSH 1.82 01/26/2025 Assessment & Plan (04/19/2025 2:33 PM EDT): Lab Results Component Value Date TSH 1.82 01/26/2025 Assessment & Plan (01/27/2025 1:05 AM EST): Lab Results Component Value Date TSH 1.82 01/26/2025 Assessment & Plan (08/19/2023 2:56 PM EDT): Lab Results Component Value Date TSH 1.56 2023 Pelvic pain 09/03/2012 Depressive disorder 05/14/2012 Overview (04/19/2025): Follows with therapist and psychiatrist. Denies suicidial or homacidial ideation. Assessment & Plan (04/19/2025 2:39 PM EDT): Follows with therapist and psychiatrist. Denies suicidial or homacidial ideation. Resolved Problems Problem Noted Date Diagnosed Date Resolved Date Dietary counseling 03/28/2025 Assessment & Plan (03/28/2025 2:15 PM EDT): Dietary Recommendations: Fruits, vegetables, whole grains, protein foods, and fat-free or low-fat dairy products are healthy choices. Eat different types of protein foods in your diet. This can include seafood, lean meats, poultry, beans, peas, lentils, nuts, seeds, soy products, and eggs. Limit foods and beverages higher in added sugars, saturated fat, and sodium. Exercise counseling 03/28/2025 04/19/20 Assessment & Plan (03/28/2025 2:15 PM EDT): Exercise Recommendations: At least 150 minutes of moderate-intensity physical activity per week, or an equivalent combination of moderate- and vigorous-intensity activity. Dental caries into pulp 12/22/202403/24 Dental calculus 11/08/2024 04/20/2025 Open fracture of tooth 06/23/202405/19 Effusion of knee 05/09/2024 06/22/2024 Strain of lumbar region 05/09/2024 0711/2023 Wheezing 05/09/2024 06/22/2024 Bronchitis 05/09/2024 06/22/2024 Toe pain, left 03/15/2024 04/19/2024 Assessment & Plan (03/15/2024 3:16 PM EDT): Alternate acetaminophen and naproxen PRN XRAY ordered Lip laceration 02/24/2024 04/19/2024 Dental plaque 12/17/2023 04/19/2024 Missing teeth, acquired 12/17/202304/24 Epigastric pain 05/22/2023 05/19/2025 Unsatisfactory cervical Papanicolaou smear 05/22/2023 06/22/2024 Urinary frequency 05/22/2023 04/19/2024 Bacterial vaginosis 12/03/2022 04/19/20 Knee pain 09/15/2013 06/22/2024 Candidiasis of vagina 09/03/20122023 Postmenopausal bleeding 09/03/201203/24 GERD (gastroesophageal reflux disease) 05/14/2012 05/19/2025 Encounters Date Type Department Care Team Description 07/13/2025 Refill [facility] [address] [place] [address] Malu Medina, LisaD Benign hypertension 06/26/2025 Orders Only [facility] [address] [place] [address] Libra Barone MD 06/23/2025 Telephone [facility] [address] [place] [address] Libra Barone MD 05/30/2025 Refill [facility] [address] [place] [address] Libra Barone MD Mild intermittent asthma without complication; High blood sugar 05/22/2025 Travel 05/18/2025 Orders Only [facility] [address] [place] [address] Sue Coats MD 05/09/2025 Telephone [facility] [address] [place] [address] Libra Barone MD Med Refill 05/08/2025 Refill [facility] [address] [place] [phone] Libra Barone MD Oral herpes simplex infection 04/28/2025 Refill [facility] [address] [place] [phone] Libra Barone MD Diabetes mellitus without complication ([facility]) 04/28/2025 Refill [facility] [address] [place] [phone] Libra Barone MD Diabetes mellitus without complication ([facility]/HCC) 04/19/2025 2:00 PM EDT Office Visit [facility] [address] [place] [phone] Libra Barone MD Benign hypertension (Primary Dx); Moderate persistent asthma without complication; Diabetes mellitus without complication ([facility]); Acquired hypothyroidism; Transaminitis; History of postmenopausal bleeding; Depressive disorder; Acute pain of left knee; Candidiasis; Class 2 severe obesity due to excess calories with serious comorbidity and body mass index (BMI) of 36.0 to 36.9 in adult ([facility]); Dietary counseling; Exercise counseling; Other specified health status 04/19/2025 Travel 04/18/2025 Telephone [facility] [address] [place] [phone] Libra Barone MD Chart Prep from Last 3 Months Immunizations Immunization Administration Dates Next Due Hep A, Adult [...] Sign Reading Time Taken Comments Blood Pressure 118/76 05/22/2025 3:15 PM EDT Pulse 60 05/22/2025 3:15 PM EDT Temperature 37.2 C (98.9 F) 04/19/2025 2:06 PM EDT Respiratory Rate 20 04/19/2025 2:06 PM EDT Oxygen Saturation 94% 04/19/2025 2:06 PM EDT Inhaled Oxygen Concentration - - Weight 85.2 kg (187 lb 12.8 oz) 04/19/2025 2:06 PM EDT Height 160.7 cm (5' 3.25 ) 04/19/2025 2:06 PM ED T Body Mass Index 33 04/19/2025 2:06 PM EDT Plan of Treatment Upcoming Encounters Date Type Department Care Team (Late st Contact Info) Description 07/26/2025 3:00 PM EDT Medication Management [facility] [address] [place] [address] Malu Medina, PharmD [address] [place] [address] Health Maintenance Due Date Last Done Comments CT Colonography 1959 FIT DNA/Cologuard 1960 FIT 1960 FOBT 1960 Sigmoidoscopy 1960 RSV Patients and Patients Aged 60 years or older (1 - Risk 60-74 years 1-dose series) 2019 Depression Screening 04/20/2025 04/20/2024, 04/20/20 24 Dental Oral Exam 05/10/2025 11/08/2024, , 03/25/2021, Additional history exists Dental Prophylaxis 05/10/2025 11/08/2024, 0 12/17/2023, 10/09/2022, Additional history exists Diabetes: Hemoglobin A1C 07/19/2025 025, 01/11/2025, 09/28/2024, Additional history exists Influenza Vaccine (#1) 2025 , 08/19/2023, 08/28/2022, Additional history exists Dental X-Ray: Full Mouth 10/10/2025 022, 02/28/2021, 02/02/2019, Additional history exists Dental X-Ray: Bitewings 12/23/2025 12/22/19 25, 11/08/2024, 12/17/2023, Additional history exists SDOH Screening 01/17/2026 01/17/2025 Alcohol/Substance Use Screening 01/26/2026 01/26/2025 COVID-19 Vaccine ( season) 2026 10/22/2022, 05/20/2021, 04/10/2021 Postponed from 07/24/2024 (Patient Refused) Diabetes: Urine Protein Screening 04/18/2026 04/18/2025, 08/21/2023, 2023, Additional history exists Lipid Panel 04/18/2026 04/18/2025, 08/24, 2023, Additional history exists Diabetes: Foot Exam 04/19/2026 04/19/2025, 04/19/2025, 04/19/2025, Additional history exists Tobacco Screening 04/19/2026 04/19/2025 Mammogram 05/18/2026 05/18/2025, 04/24, 07/16/2024, Additional history exists Eye Exam 02/28/2027 02/28/2025, 04/0 06/2025, 02/28/2025, Additional history exists Colonoscopy 12/01/2027 12/01/2022, 12/24/2018 Colorectal Cancer Screening 12/01/2027 HPV/Cotest 06/21/2029 06/21/2024, 01/22, 02/12/2021, Additional history exists Pap Smear 06/21/2029 06/21/2024, 05/23, 03/14/2021, Additional history exists DTaP/Tdap/Td Vaccines (4 - Td or Tdap) 08/28/2032 08/28/2022, 06/07/2022, 05/27/2012, Additional history exists Hepatitis B Vaccines Completed 03/08/1997, 10/06/1996, 09/08/1996 Pneumococcal Vaccine: 50+ Years Completed 12/03/2022, 07/03/2015, 10/08/1996 Zoster Vaccines Completed 05/27/2023, 08/28/2022 Hepatitis C Screening Completed 07/22/2023 , 2023, 2023 Hepatitis A Vaccines Aged Out 04/20/2024, 05/27/20 No longer eligible based on patient's age to complete this topic HIB Vaccines Aged Out No longer eligi ble based on patient's age to complete this topic HPV Vaccines Aged Out No longer eligi ble based on patient's age to complete this topic IPV Vaccines Aged Out No longer eligi ble based on patient's age to complete this topic Meningococcal B Vaccine Aged Out No l onger eligible based on patient's age to complete [...] Author Blood Pressure < 140/90 Blood Pressure 118/76(2024 3:15 PM EDT) No Malu Mckinnon, PharmD Hemoglobin A1c < 7 Result Component 7.2( 8:51 AM EDT) No JassMalu Padilla, PharmD Procedures Procedure Name Priority Date/Time Associated Diagnosis Comments US EXTREMITY NON VASCULAR LEFT LIMITED Routine 06/26/2025 1:09 PM EDT BI MAMMOGRAM DIAGNOSTIC TOMOSYNTHESIS BILATERAL Routine 05/18/2025 1:30 PM EDT BI US BREAST LIMITED LEFT Routine 05/18/2025 1:23 PM EDT Mastalgia in female BASIC METABOLIC PANEL Routine 04/18/2025 8:51 AM EDT Diabetes mellitus without complication (CMS/HCC) HEMOGLOBIN A1C Routine 04/18/2025 8:51 AM EDT Diabetes mellitus without complication (CMS/HCC) LIPID PANEL, STANDARD Routine 04/18/2025 8:51 AM EDT Diabetes mellitus without complication (CMS/HCC) HEPATIC FUNCTION PANEL Routine 04/18/2025 8:51 AM EDT Diabetes mellitus without complication (CMS/HCC) ALBUMIN, RANDOM URINE W/CREATININE Routine 04/18/2025 8:51 AM EDT Diabetes mellitus without complication (CMS/HCC) BITEWING - SINGLE RADIOGRAPHIC IMAGE Routine 12/22/2024 11:30 AM EST Full PROPHYLAXIS - ADULT Routine 11/08/2024 11:00 AM EST Dental calculus Generalized gingival recession PERIODIC ORAL EVALUATION - ESTABLISHED PATIENT Routine 11/08/2024 11:00 AM EST Dental calculus Missing teeth, acquired Generalized gingival recession Encounter for dental examination THINPREP IMAGING PAP AND HPV MRNA E6/E7 WITH REFLEX TO HPV 16,18/45 Routine 06/21/2024 9:52 AM EDT HEPATITIS PANEL, GENERAL Routine 07/22/2023 1:58 PM EDT HM COLONOSCOPY Routine 12/01/2022 12:16 PM EST INTRAORAL - COMPLETE SERIES OF RADIOGRAPHIC IMAGES Routine 10/09/2022 12:00 AM EST from Last 3 Months or Most Recently Relevant to Health Maintenance Results * US Extremity Non Vascular Left Limited (06/26/2025 1:09 PM EDT) Anatomical Region Laterality Modality Ultrasound 06/26/2025 1:09 PM EDT Narrative 06/26/2025 1:30 PM EDT [address] [id number] Ultrasound Report Signed Patient: Sridevi Pruitt I MR#: [id number] : 1960 Acct:[id number] Age/Sex: 65 / F ADM Date: 06/26/25 Loc: HO.US Attending Dr: Libra Barone MD Ordering Physician: Libra Barone MD Date of Service: 06/26/25 Procedure(s): US Extremity Nonvas Limited LT Accession Number(s): [id number] cc: Libra Barone MD Exam:US Extremity Nonvas Limited Lt TECHNIQUE: Grayscale and color Doppler imaging was performed through the popliteal fossa of the left knee. INDICATION: Acute pain in the left popliteal fossa Prior: None FINDINGS: Normal soft tissues are identified without mass, cyst, or other abnormality. Popliteal artery and vein were patent. The vein compressed under ultrasound direct pressure. US/US Extremity Nonvas Limited LT IMPRESSION: Unremarkable left popliteal fossa ultrasound. Electronically signed by: Arturo Pimentel MD 06/26/2025 01:27 PM EDT RP Dictated By: Arturo Pimentel MD Signed By: <Electronically signed by Arturo Pimentel MD in OV> 06/26/25 1327 DD/ 1309 TD/TT: 06/26/25 1312 Microbiology Quality Control Technician: Procedure Note Donotuseinterpreter, Image - 06/26/2025 [place] [address] Ultrasound Report Signed Patient: Sridevi Pruitt IMR#: [id number] : 1960cct:[id number] Age/Sex: 65 / FADM Date: 06/26/25 Loc: HO.US Attending Dr: Libra Barone MD Ordering Physician: Libra Barone MD Date of Service: 06/26/25 Procedure(s): US Extremity Nonvas Limited LT Accession Number(s): [id number] cc: Libra Barone MD Exam:US Extremity Nonvas Limited Lt TECHNIQUE: Grayscale and color Doppler imaging was performed through the popliteal fossa of the left knee. INDICATION: Acute pain in the left popliteal fossa Prior: None FINDINGS: Normal soft tissues are identified without mass, cyst, or other abnormality. Popliteal artery and vein were patent. The vein compressed under ultrasound direct pressure. US/US Extremity Nonvas Limited LT IMPRESSION: Unremarkable left popliteal fossa ultrasound. Electronically signed by: Arturo Pimentel MD 06/26/2025 01:27 PM EDT RP Dictated By: Arturo Pimentel MD Signed By: <Electronically signed by Arturo Pimentel MD in OV> 06/26/25 1327 DD/ 1309 TD/TT: 06/26/25 1312 Microbiology Quality Control Technician: us Libra Barone MD IMG US PROCEDURES Final Re sult * BI Mammogram Diagnostic Tomosynthesis Bilateral (05/18/2025 1:30 PM EDT) Anatomical Region Laterality Modality Breast Bilateral Mammography 05/18/2025 1:30 PM EDT Narrative 05/18/2025 2:45 PM EDT [address] [place] [address] Mammography Report Signed Patient: Sridevi Pruitt I MR#: [id number] : 1960 Acct:[id number] Age/Sex: 64 / F ADM Date: 05/18/25 Loc: .MAMMO Attending Dr: Sue Coats MD Ordering Physician: Sue Coats MD Results: 2Be nign Findings Date of Service: 05/18/25 Follow Up: 1 Year From [facility] Mammogram Procedure(s): MM tomosynthesis diagnostic BI Accession Number(s): [id number] cc: Libra Barone MD; Sue Coats MD EXAMINATION: MM DIAGNOSTIC DIGITAL BREAST TOMOSYNTHESIS, BILATERAL Left Limited ultrasound. CLINICAL INFORMATION: Left breast pain. COMPARISON: Mammography: Comparison is made with relevant prior exams. TECHNIQUE: Digital breast mammography with tomosynthesis is performed in both the craniocaudal and mediolateral oblique views along with computer-aided detection (CAD). FINDINGS: The breasts are heterogeneously dense, which may obscure small masses (ACR BI-RADS breast composition Category c). Right: There are no significant masses, abnormal calcifications, or other abnormalities. Marker clip from previous needle core biopsy. Left: [place] marker in the lower inner left breast without underlying abnormality at the site of patient's pain. No suspicious calcifications masses or other abnormal findings. Targeted color Doppler ultrasound scanning in the area of the patient's left breast pain from 4-9 o'clock demonstrates normal fibronodular breast tissue. There is no sonographic abnormal findings. Results are provided to the patient at time of visit by the technologist. MM/MM tomosynthesis diagnostic BI IMPRESSION: Right: Benign. Left: No mammographic or sonographic abnormal finding to account for the patient's left breast pain. Recommend clinical evaluation and follow-up. ASSESSMENT: BI-RADS BI-RADS 2 - Benign Findings RECOMMENDATION: 1 year F/U This patient's information was entered into a reminder system with a target due date for their next mammogram. Electronically signed by: Donna Mooney DO 05/18/2025 02:43 PM EDT Dictated By: Donna Mooney DO Signed By: <Electronically signed by Donna Mooney DO in OV> 05/18/25 1443 DD/ 1330 TD/TT: 05/18/25 1358 Microbiology Quality Control Technician: Procedure Note Donotuseinterpreter, Image - 05/18/[facility] [address] [place] [address] Mammography Report Signed Patient: Sridevi Pruitt [facility]#: [id number] : 9Acct:[id number] Age/Sex: 64 / FADM Date: 05/18/25 Loc: TEGAN.ANDERO Attending Dr: Sue Coats MD Ordering Physician: Sue Coats MDResults: 2Be nign Findings Date of Service: 05/18/25Follow Up: 1 Year From [facility] Mammogram Procedure(s): MM tomosynthesis diagnostic BI Accession Number(s): [id number] cc: Libra Barone MD; Sue Coats MD EXAMINATION: MM DIAGNOSTIC DIGITAL BREAST TOMOSYNTHESIS, BILATERAL Left Limited ultrasound. CLINICAL INFORMATION: Left breast pain. COMPARISON: Mammography: Comparison is made with relevant prior exams. TECHNIQUE: Digital breast mammography with tomosynthesis is performed in both the craniocaudal and mediolateral oblique views along with computer-aided detection (CAD). FINDINGS: The breasts are heterogeneously dense, which may obscure small masses (ACR BI-RADS breast composition Category c). Right: There are no significant masses, abnormal calcifications, or other abnormalities. Marker clip from previous needle core biopsy. Left: [place] marker in the lower inner left breast without underlying abnormality at the site of patient's pain. No suspicious calcifications masses or other abnormal findings. Targeted color Doppler ultrasound scanning in the area of the patient's left breast pain from 4-9 o'clock demonstrates normal fibronodular breast tissue. There is no sonographic abnormal findings. Results are provided to the patient at time of visit by the technologist. MM/MM tomosynthesis diagnostic BI IMPRESSION: Right: Benign. Left: No mammographic or sonographic abnormal finding to account for the patient's left breast pain. Recommend clinical evaluation and follow-up. ASSESSMENT: BI-RADS BI-RADS 2 - Benign Findings RECOMMENDATION: 1 year F/U This patient's information was entered into a reminder system with a target due date for their next mammogram. Electronically signed by: Donna Mooney DO 05/18/2025 02:43 PM EDT Dictated By: Donna Mooney DO Signed By: <Electronically signed by Donna Mooney DO in OV> 05/18/25 1443 DD/ 1330 TD/TT: 05/18/25 1358 Microbiology Quality Control Technician: us Sue Coats MD IMG BI PROCEDURES Final Result * BI US Breast Limited Left (05/18/2025 1:23 PM EDT) Anatomical Region Laterality Modality Breast Left Ultrasound 05/18/2025 1:23 PM EDT Narrative 05/18/2025 2:45 PM EDT [facility] [place] [address] Ultrasound Report Signed Patient: Sridevi Pruitt I MR#: [id number] : 1960 Acct:[id number] Age/Sex: 64 / F ADM Date: 05/18/25 Loc: HO.MAMMO Attending Dr: Sue Coats MD Ordering Physician: Sue Coats MD Date of Service: 05/18/25 Procedure(s): US breast LT limited mamm only Accession Number(s): [id number] cc: Libra Barone MD; Sue Coats MD EXAMINATION: MM DIAGNOSTIC DIGITAL BREAST TOMOSYNTHESIS, BILATERAL Left Limited ultrasound. CLINICAL INFORMATION: Left breast pain. COMPARISON: Mammography: Comparison is made with relevant prior exams. TECHNIQUE: Digital breast mammography with tomosynthesis is performed in both the craniocaudal and mediolateral oblique views along with computer-aided detection (CAD). FINDINGS: The breasts are heterogeneously dense, which may obscure small masses (ACR BI-RADS breast composition Category c). Right: There are no significant masses, abnormal calcifications, or other abnormalities. Marker clip from previous needle core biopsy. Left: [place] marker in the lower inner left breast without underlying abnormality at the site of patient's pain. No suspicious calcifications masses or other abnormal findings. Targeted color Doppler ultrasound scanning in the area of the patient's left breast pain from 4-9 o'clock demonstrates normal fibronodular breast tissue. There is no sonographic abnormal findings. Results are provided to the patient at time of visit by the technologist. US/US breast LT limited mamm only IMPRESSION: Right: Benign. Left: No mammographic or sonographic abnormal finding to account for the patient's left breast pain. Recommend clinical evaluation and follow-up. ASSESSMENT: BI-RADS BI-RADS 2 - Benign Findings RECOMMENDATION: 1 year F/U This patient's information was entered into a reminder system with a target due date for their next mammogram. Electronically signed by: Donna Mooney DO 05/18/2025 02:43 PM EDT Dictated By: Donna Mooney DO Signed By: <Electronically signed by Donna Mooney DO in OV> 05/18/25 1443 DD/ 1323 TD/TT: 05/18/25 1422 Microbiology Quality Control Technician: Procedure Note Donotuseinterpreter, Image - 05/18/2025 [facility] [address] [place] [address] Ultrasound Report Signed Patient: Sridevi Pruitt IMR#: [id number] : 9Acct:[id number] Age/Sex: 64 / FADM Date: 05/18/25 Loc: HO.MAMMO Attending Dr: Sue Coats MD Ordering Physician: Sue Coats MD Date of Service: 05/18/25 Procedure(s): US breast LT limited mamm only Accession Number(s): [id number] cc: Libra Barone MD; Sue Coats MD EXAMINATION: MM DIAGNOSTIC DIGITAL BREAST TOMOSYNTHESIS, BILATERAL Left Limited ultrasound. CLINICAL INFORMATION: Left breast pain. COMPARISON: Mammography: Comparison is made with relevant prior exams. TECHNIQUE: Digital breast mammography with tomosynthesis is performed in both the craniocaudal and mediolateral oblique views along with computer-aided detection (CAD). FINDINGS: The breasts are heterogeneously dense, which may obscure small masses (ACR BI-RADS breast composition Category c). Right: There are no significant masses, abnormal calcifications, or other abnormalities. Marker clip from previous needle core biopsy. Left: [place] marker in the lower inner left breast without underlying abnormality at the site of patient's pain. No suspicious calcifications masses or other abnormal findings. Targeted color Doppler ultrasound scanning in the area of the patient's left breast pain from 4-9 o'clock demonstrates normal fibronodular breast tissue. There is no sonographic abnormal findings. Results are provided to the patient at time of visit by the technologist. US/US breast LT limited mamm only IMPRESSION: Right: Benign. Left: No mammographic or sonographic abnormal finding to account for the patient's left breast pain. Recommend clinical evaluation and follow-up. ASSESSMENT: BI-RADS BI-RADS 2 - Benign Findings RECOMMENDATION: 1 year F/U This patient's information was entered into a reminder system with a target due date for their next mammogram. Electronically signed by: Donna Mooney DO 05/18/2025 02:43 PM EDT RP Dictated By: Donna Mooney DO Signed By: <Electronically signed by Donna Mooney DO in OV> 05/18/25 1443 DD/ 1323 TD/TT: 05/18/25 1422 Microbiology Quality Control Technician: us Sue Coats MD IMG US PROCEDURES Final Result * Albumin, Random Urine W/Creatinine (04/18/2025 8:51 AM EDT) Creatinine, Urine 214.51 mg/dL [facility] Microalbumin Urine 16.0 mg/L [facility] Microalbum Creatinine Ratio Ur 7.4 <30 ug/mg cr [facility] Comment:Albumin/Creatinine R atio Reference Ranges: Normal: < 30 ug/mg creatinine Microalbuminuria: 30 - 300 ug/mg creatinineClinical Albuminuria: > 300 ug/mg creatinine Urine 04/18/2025 8:51 AM EDT 04/18/2025 11:06 AM EDT us Libra Barone MD LAB URINE ORDERABLES Final Result [facility] [address] [place] [phone] * (ABNORMAL) Hemoglobin A1c (04/18/2025 8:51 AM EDT) Hemoglobin A1c 7.2(H) <6.0 % [facility] Comment:Hemoglobin A1C Refer ence Range Adults: 4.8 - 6.0 % Non diabetic: < 6.0 % Goal: < 7.0 %Additional Action Suggested: > 8.0 %Note: Hemoglobin A1c results are invalid for patients with abnormal amounts of HbF. Blood transfusions may impact the HbA1c concentration in the patient sample. Estimated Average Glucose 160 mg/dL [facility] Comment:eAG = Estimated ave rage glucose which is %A1C expressed asaverage glucose, using the formula of the T2R-PhqwjikHolfxng Glucose study (ADAG), Diabetes Care, Vol.31,#8,2007 Blood Venous blood specimen / Unknown 04/18/2025 8:51 AM EDT 04/18/2025 11:06 AM EDT Libra Barone MD LAB BLOOD ORDERABLES Final Result Performing Organization Address City/[facility]/ZIP Co de Phone Number [facility] [address] [place] [address] [phone] * Hepatic Function Panel (04/18/2025 8:51 AM EDT) Bilirubin, Total 0.5 0.0 - 1.0 mg/dL [facility] Bilirubin, Direct 0.2 0.0 - 0.5 mg/dL [facility] Aspartate Amino Transferase 21 5 - 31 U/L [facility] Alanine Aminotransferase 16 0 - 31 U/L [facility] Total Protein 7.1 6.5 - 8.0 g/dL [facility] Albumin Level 4.3 3.5 - 5.0 g/dL [facility] Alkaline Phosphatase 84 39 - 117 U/L [facility] Blood Venous blood specimen / Unknown 04/18/2025 8:51 AM EDT 04/18/2025 11:06 AM EDT Libra Barone MD LAB BLOOD ORDERABLES Final Result Performing Organization Address City/[facility] Co de Phone Number [facility] [address] [place] [address] [phone] * Lipid Panel, Standard (04/18/2025 8:51 AM EDT) Triglycerides 61 <150 mg/dL [facility] Comment:Desirable Triglyceri de: less than 150 mg/dLBorderline High Triglyceride 150-199 mg/dLHigh Triglyceride: 200-499 mg/dLVery High Triglyceride: greater than or equal to 5OO mg/dL Cholesterol 144 <200 mg/dL [facility] Comment:Desirable Cholestero l: less than 200 mg/dLBorderline High Cholesterol: 200-239 mg/dLHigh Cholesterol: greater than 239 mg/dL LDL Cholesterol Calculated 79 <100 mg/dL [facility] Comment:Desirable LDL: less than 100 mg/dLNear Optimal/Above Optimal LDL: 110- 129 mg/dLBorderline High LDL: 130-159 mg/dLHigh LDL: 160-189 mg/dLVery High LDL: greater than or equal to 190 mg/dL HDL Cholesterol 53 >40 mg/dL [facility] Comment:Desirable HDL: great er than 40 mg/dL Note: This HDL assay may give artificially low results in patients with liver disease. Blood Venous blood specimen / Unknown 04/18/2025 8:51 AM EDT 04/18/2025 11:06 AM EDT us Libra Barone MD LAB BLOOD ORDERABLES Final Result [facility] [address] [place] [phone] * (ABNORMAL) Basic Metabolic Panel (04/18/2025 8:51 AM EDT) Sodium 139 135 - 145 mmol/L [facility] Potassium 4.0 3.3 - 5.1 mmol/L [facility] Chloride 102 96 - 108 mmol/L [facility] Carbon Dioxide 30(H) 22 - 29 mmol/L [facility] Anion Gap 11(L) 12 - 20 [facility] Urea Nitrogen (BUN) 15 9 - 16 mg/dL [facility] Creatinine, Serum 0.72 0.5 - 1.4 mg/dL [facility] Estimated Glomerular Filt Rate >60 [facility] Comment:Chronic Kidney Disea se: Estimated GFR < 60 mL/min/1.39p8Nqlzlc Kidney Disease: Estimated GFR < 15 mL/min/1.73m2 Glucose 147(H) 60 - 115 mg/dL [facility] Calcium 9.5 8.4 - 10.2 mg/dL [facility] Blood Venous blood specimen / Unknown 04/18/2025 8:51 AM EDT 04/18/2025 11:06 AM EDT us Libra Barone MD LAB BLOOD ORDERABLES Final Result [facility] [address] [place] [address] [phone] * ThinPrep Imaging Pap and HPV mRNA E6/E7 with Reflex to HPV 16,18/45 (06/21/2024 9:52 AM EDT) HPV 16 RNA [facility] HPV 18/45 RNA [facility] HPV nRNA E6/E7 Not Detected Not Detected [facility] Comment:Methodology: Transcr iption-Mediated AmplificationThis assay detects E6/E7 viral messenger RNA (mRNA) from 14high-risk HPV types (16,18,31,33,35,39,45,51,52,56,58,59,66,68).Cervical sources are required for HPV testing.If a vaginal source from a patient who has had atotal hysterectomy with removal of cervix wassubmitted, please contact the testing laboratoryfor alternative testing options.For additional information, please refer [email or web address]/RWY867s4(This link if provided for information/educational purposes only.)THIS TEST WAS PERFORMED AT:[facility] [place] [phone] KHAN MD SOURCE: SEE NOTE [facility] Comment:Cervix Report Status: [facility] Clinical Information: SEE NOTE [facility] Comment:ROUTINE LMP: SEE NOTE [facility] Comment:PM Prev. PAP: SEE NOTE [facility] Comment:06/05/22 Prev. BX: SEE NOTE [facility] Comment:NONE GIVEN Statement Of Adequacy: SEE NOTE [facility] Comment:SATISFACTORY FOR GHAZAL LUATION General Categorization: [facility] Interpretation/Result: SEE NOTE [facility] Comment:Cytology Results: Ne gative for intraepitheliallesion or malignancy.Atrophic pattern; predominantly parabasal cells Cytology Comment SEE NOTE [facility] Comment:This Pap test has be en evaluated with computerassisted technology. Automobile Mechanic Radiator: SEE NOTE [facility] Comment:BK,CT(ASCP)CT screen ing location: [address] Review Automobile Mechanic Radiator: TNP [facility] Pathologist TNP [facility] PAP Infection [facility] See Note SEE NOTE [facility] Comment:EXPLANATORY NOTE:The Pap is a screening test for cervical cancer. It isnot a diagnostic test and is subject to false negativeand false positive results. It is most reliable when asatisfactory sample, regularly obtained, is submittedwith relevant clinical findings and history, and whenthe Pap result is evaluated along with historic andcurrent clinical information. 06/21/2024 9:52 AM EDT 06/21/2024 2:35 PM EDT Narrative [facility] - 06/23/2024 12:57 PM EDT SEE SCANNED RESULTS IN EMRWas previous PAP abnormal? YesIf PAP abnormal, please specify: hpv +Clinical Information: RoutineCollection Date: 06/21/24LMP: postmenopausalDate of previous PAP 06/05/22Performed by: : Cervical us Generic External Data Provider LAB PATHOLOGY ORD ERABLES Final Result [facility] [address] [place] [phone] * Hepatitis Panel, General (07/22/2023 1:58 PM EDT) Hepatitis A IgM Nonreactive Nonreactive [facility] Comment:IgM antibodies to WOLF V not detected; does not exclude earlyacute or recovered HAV infection. ~Hepatitis B Surface Antibody REACTIVE Nonreactive [facility] Comment:REACTIVE: > 11.99 mI U/mL Hepatitis B Core Antibody Nonreactive Nonreactive [facility] Hepatitis C Antibody Nonreactive Nonreactive [facility] Comment:Antibodies to HCV no t detected; does not exclude early acuteHCV infection. Hepatitis B Surface Ag Negative Negative [facility] 07/22/2023 1:58 PM EDT 07/22/2023 1:59 PM EDT [facility] External Provider LAB BLO OD ORDERABLES Final Result [facility] [address] [place] [phone] * Hm Colonoscopy (12/01/2022 12:16 PM EST) Historical Provider MD HEALTH MAINTENANCE Final Result from Last 3 Months or Most Recently Relevant to Health Maintenance Insurance [facility] [employer] (HMO D-SNP) [facility] STANDARD [facility] Care Teams Product Support Representative Relationship Specialty Start Date End Date Claiborne, MD Libra [address] [place] [address] PCP - General Family Medicine 11/23/18 Malu Medina PharmD [address] [place] [address] Pharmacist Internal Medicine 05/09/24 Tamie Vega OD [address] [place] [phone] Optometry 02/16/25 Ming February [address] [place] [address] 3rd [place] [address] Gastroenterology 04/20/25
--- OUTSIDE RECORDS SUMMARY | 2025-07-18 07:46 | XMS_ITS | Encounter Summary ---
Author Organization [employer] Address [address] [facility] 7t [place] [address] Care Team Providers Care Alarm Security Or Surveillance Monitor Name Role Phone Libra Barone MD Primary Care Provider [phone] Malu Medina PharmD Unavailable Tamie Vega OD Unavailable February Unavailable Encounter Details Date Type Department Care Team (Latest Contact Info) Description 10/09/2022 Abstract [facility] CONVERSIONS Dental, Provider, DDS Social History [...] Description 07/26/2025 3:00 PM EDT Medication Management [facility] [address] [place] [address] Malu Medina, PharmD [address] [place] [address] documented as of this encounter Visit Diagnoses Not on filedocumented in this encounter Care Teams Alarm Security Or Surveillance Monitor Relationship Specialty Start Date End Date Libra Barone MD [address] [place], [place] [phone] PCP - General Family Medicine 11/23/18 Malu Medina, Becky [address] [place] [address] Pharmacist Internal Medicine 05/09/24 Tamie Vega OD [address] [place] [phone] Optometry 02/16/[address] [place] [address] Drive 3rd [place] [address] Gastroenterology 04/20/25 documented as of this encounter
--- OUTSIDE RECORDS SUMMARY | 2025-07-18 07:46 | XMS_ITS | Encounter Summary ---
Author Organization [employer] Address [address] [facility] 7t [place] [address] Care Team Providers Care Line Decorator Name Role Phone Libra Barone MD Primary Care Provider [phone] Malu Medina PharmD Unavailable Tamie Vega OD Unavailable February Unavailable Reason for Visit * Reason Onset Date Comments Med Refill 05/09/2025 Encounter Details Date Type Department Care Team ([facility] Contact Info) Description 05/09/2025 Telephone [facility]INE [address] [place], [place] [phone] Libra Barone MD [address] [place], [place] [phone] Med Refill Social History Tobacco Use Types Packs/Day Years [...] encounter Miscellaneous Notes * Telephone Encounter - Jennifer Russell LPN - 05/09/2025 2:07 PM EDT Medication sent to [facility] on 01/30/25 #90 with 3 refills. * Telephone Encounter - Celestino Ortega - 05/09/2025 1:56 PM EDT TC from pt requesting medication refill. Medications needing refill : levothyroxine (Synthroid, Levoxyl) 75 MCG tablet To be sent to: [facility] - [place], [place] - [address] [facility] documented in this encounter Plan of Treatment Upcoming Encounters Date Type Department Care Team (Late st Contact Info) Description 07/26/2025 3:00 PM EDT Medication Management [facility] [address] [place] [address] Malu Medina, PharmD [address] [place] [address] documented as of this encounter Goals Goal Patient Goal Type Associated Problems Recent Progress Patient-Stated? Author Blood Pressure < 140/90 Blood Pressure 118/76(2024 3:15 PM EDT) No Malu Mckinnon PharmChel Hemoglobin A1c < 7 Result Component 7.2( 8:51 AM EDT) No Malu Mckinnon PharmD documented as of this encounter Visit Diagnoses Not on filedocumented in this encounter Additional Health Concerns Assessment Noted Time PHQ-9 Depression Total Score: 0 04/20/20 24 3:44 PM EDT documented as of this encounter Care Teams Line Decorator Relationship Specialty Start Date End Date Libra Barone MD [address] [place] [address] PCP - General Family Medicine 11/23/18 Malu Medina PharmD [address] [place] [phone] Pharmacist Internal Medicine 05/09/24 Tamie Vega OD [address] [place] [phone] Optometry 02/16/25 Ming Tanya [address] [place] [address] 3rd [place] [address] Gastroenterology 04/20/25 documented as of this encounter
--- OUTSIDE RECORDS SUMMARY | 2025-07-18 07:46 | XMS_ITS | Encounter Summary ---
Author Organization [employer] Address [address] [facility] 7t [place] [address] Care Team Providers Care E Commerce Marketing Analyst Name Role Phone Libra Barone MD Primary Care Provider [phone]- [phone] Malu Medina PharmD Unavailable [phone] Tamie Vega OD Unavailable February Unavailable Encounter Details Date Type Department Care Team (Latest Contact Info) Description 03/14/2019 Abstract [facility] CONVERSIONS Dental, Provider, DDS Social History [...] Description 07/26/2025 3:00 PM EDT Medication Management [facility] [address] [place] [address] Malu Medina, PharmD [address] [place] [address] documented as of this encounter Visit Diagnoses Not on filedocumented in this encounter Care Teams E Commerce Marketing Analyst Relationship Specialty Start Date End Date Libra Barone MD [address] [place], [place] [phone] PCP - General Family Medicine 11/23/18 Malu Medina, Becky [address] [place] [address] Pharmacist Internal Medicine 05/09/24 Tamie Vega OD [address] [place] [phone] Optometry 02/16/[address] [place] [address] Drive 3rd [place] [address] Gastroenterology 04/20/25 documented as of this encounter
--- OUTSIDE RECORDS SUMMARY | 2025-07-18 07:46 | XMS_ITS | Encounter Summary ---
Author Organization [employer] Address [address] [facility] 7t [place] [address] Care Team Providers Care Stripe Matcher Name Role Phone Libra Barone MD Primary Care Provider [phone]- [phone] Malu Medina PharmD Unavailable Tamie Vega OD Unavailable [phone] February Unavailable Reason for Visit * Reason Onset Date Comments Appointment Request 01/02/2025 Encounter Details Date Type Department Care Team ([facility] Contact Info) Description 01/02/2025 Telephone [facility] MED[facility]INE [address] [place], [place] [phone] Libra Barone MD [address] [place], [place] [phone] Appointment Request Social History Tobacco Use Types [...] 07/26/2025 3:00 PM EDT Medication Management [facility] MED[facility]INE [address] [place] [address] Malu Medina PharmD [address] [place] [address] documented as of this encounter Goals Goal [...] documented as of this encounter Care Teams Stripe Matcher Relationship Specialty Start Date End Date Libra Barone MD [address] [place] [id number] PCP - General Family Medicine 11/23/18 Malu Medina, LisaD [address] [place] [address] Pharmacist Internal Medicine 05/09/24 Tamie Vega OD [address] [place] [address] Optometry 02/16/25February [address] [place] [address] 3rd [place] [address] Gastroenterology 04/20/25 documented as of this encounter
--- OUTSIDE RECORDS SUMMARY | 2025-07-18 07:46 | XMS_ITS | Encounter Summary ---
Author Organization [employer] Address [address] [facility] 7t [place] [address] Care Team Providers Care Copywriter Name Role Phone Libra Barone MD Primary Care Provider Malu Medina PharmD Unavailable Tamie Vega OD Unavailable [phone] February Unavailable Reason for Visit * Reason Comments Med Refill Encounter Details Date Type Department Care Team ([facility] st Contact Info) Description 07/13/2025 Refill [facility] [address] [place], [place] [phone] Malu Medina, PharmD [address] [place], [place] [phone] Benign hypertension Social History Tobacco Use Types Packs/Day Years [...] Description 07/26/2025 3:00 PM EDT Medication Management [facility] [address] [place] [address] Malu Medina PharmD [address] [place] [address] documented as of this encounter Goals Goal Patient Goal Type Associated Problems Recent Progress Patient-Stated? Author Blood Pressure < 140/90 Blood Pressure 118/76(2024 3:15 PM EDT) No Piers-Gambl jeff, Malu, PharmD Hemoglobin A1c < 7 Result Component 7.2( 8:51 AM EDT) No Piers-Gambl jeff, Malu, PharmD documented as of this encounter Visit Diagnoses Diagnosis Benign hypertension Essential hypertension, benign documented in this encounter Additional Health Concerns Assessment Noted Time PHQ-9 Depression Total Score: 0 04/20/20 24 3:44 PM EDT documented as of this encounter Care Teams Copywriter Relationship Specialty Start Date End Date Libar Barone MD [address] [place] [address] PCP - General Family Medicine 11/23/18 Malu Medina, Becky [address] [place], [place] [phone] Pharmacist Internal Medicine 05/09/24 Tamie Vega OD [address] [place] [address] [phone] Optometry 02/16/[address] 3rd Floor [place], [place] [phone] Gastroenterology 04/20/25 documented as of this encounter
--- OUTSIDE RECORDS SUMMARY | 2025-07-18 07:46 | XMS_ITS | Encounter Summary ---
Author Organization [employer] Address [address] [facility] 7t [place] [address] Care Team Providers Care Plant Custodian Name Role Phone Libra Barone MD Primary Care Provider [phone] Malu Medina PharmD Unavailable Tamie Vega OD Unavailable February Unavailable Reason for Visit * Reason Onset Date Comments Appointment Request 08/22/2024 Encounter Details Date Type Department Care Team ([facility] Contact Info) Description 08/22/2024 Telephone [facility] MEDICINE [address] [place], [place] [phone] Libra Barone MD [address] [place], [place] [phone] Appointment Request Social History Tobacco Use Types [...] Description 07/26/2025 3:00 PM EDT Medication Management [facility] [address] [place] [address] Malu Medina PharmD [address] [place] [address] documented as of this encounter Goals Goal Patient Goal Type Associated Problems Recent Progress Patient-Stated? Author Blood Pressure < 140/90 Blood Pressure 118/76(2024 3:15 PM EDT) No Malu Mckinnon, PharmD Hemoglobin A1c < 7 Result Component 7.2( 8:51 AM EDT) No Malu Mckinnon, PharmD documented as of this encounter Visit Diagnoses Not on filedocumented in this encounter Additional Health Concerns Assessment Noted Time PHQ-9 Depression Total Score: 0 04/20/20 24 3:44 PM EDT documented as of this encounter Care Teams Plant Custodian Relationship Specialty Start Date End Date Libra Barone MD [address] [place] [address] PCP - General Family Medicine 11/23/18 Malu Medina, LisaD [address] [place] [address] Pharmacist Internal Medicine 05/09/24 Tamie Vega OD [address] [place] [address] [phone] Optometry 02/16/25February [address] [place] [address] Drive 3rd [place] [address] Gastroenterology 04/20/25 documented as of this encounter
--- OUTSIDE RECORDS SUMMARY | 2025-07-18 07:46 | XMS_ITS | Encounter Summary ---
Author Organization [employer] Address [address] [facility] 7t [place] [address] Care Team Providers Care Chief Supply Chain Officer Name Role Phone Libra Barone MD Primary Care Provider [phone] Malu Medina PharmD Unavailable Tamie Vega OD Unavailable [phone] February Unavailable Reason for Visit * Reason Onset Date Comments Pharmacy [facility] 08/19/2024 Encounter Details Date Type Department Care Team ([facility] Contact Info) Description 08/19/2024 Telephone [facility] MEDICINE [address] [place], [place] [phone] Libra Barone MD [address] [place], [place] [phone] Pharmacy [facility] Social History Tobacco Use Types [...] Description 07/26/2025 3:00 PM EDT Medication Management [facility] MEDICINE [address] [place] [address] Malu Medina PharmD [address] [place] [address] documented as of this encounter Goals Goal Patient Goal Type Associated Problems Recent Progress Patient-Stated? Author Blood Pressure < 140/90 Blood Pressure 118/76(2024 3:15 PM EDT) No Karley Mckinnonsa, PharmD Hemoglobin A1c < 7 Result Component 7.2( 8:51 AM EDT) No Malu Mckinnon, PharmD documented as of this encounter Visit Diagnoses Not on filedocumented in this encounter Additional Health Concerns Assessment Noted Time PHQ-9 Depression Total Score: 0 04/20/20 24 3:44 PM EDT documented as of this encounter Care Teams Chief Supply Chain Officer Relationship Specialty Start Date End Date Libra Barone MD [address] [place] [address] PCP - General Family Medicine 11/23/18 Malu Medina, LisaD [address] [place] [address] Pharmacist Internal Medicine 05/09/24 Tamie Vega OD [address] [place] [id number] Optometry 02/16/[address] 3rd [place] [address] Gastroenterology 04/20/25 documented as of this encounter
[2025-07-18 08:01] LABS: MANUAL DIFF FLAG NO
[2025-07-18 08:03] LABS: Hematocrit 38.3 % (37.0-47.0); Hemoglobin 12.8 g/dl (12.0-16.0); Imm Gran Abs Auto 0.03 X10*3/uL (0.00-0.03); Imm Gran Pct Auto 0.4 % (0.0-0.4); Lymphocytes Absolute Auto 3.0 X10*3/uL (1.2-4.9); Mean Corpuscular HGB Conc 33.4 g/dl (31.0-35.0); Mean Corpuscular Hemoglobin 29.6 pg (27.0-33.0); Mean Corpuscular Volume 88.7 fL (80.0-98.0); NRBC Abs Auto 0.000 X10*3/uL (0.0-0.012); NRBC Pct Auto 0.0 /100WBC (0.0-0.2); Platelet Count 244 X10*3/uL (160-400); Red Blood Count 4.32 X10*6/uL (4.20-5.50); White Blood Count 8.4 X10*3/uL (4.8-10.8)
--- NOTE | 2025-07-18 08:03 | ED.ABDPAIN ---
HPI - Abdominal Pain General Chief Complaint: Abdominal Pain Stated Complaint: abd pain Time Seen by Provider: 07/18/25 07:32 Source: patient, RN notes reviewed and washroom attendant Mode of arrival: ambulatory Limitations: language barrier History of Present Illness ED Provider: Kaelyn Shannon PA-C HPI narrative: This is a 65-year-old Bots[place]an-speaking female, with a past medical history of diabetes, thyroid disease, diverticulitis, tubular adenoma, GERD, and hypertension, who presents to the emergency department with concerns of abdominal pain. Patient reports that while she was sleeping she awoke with right upper quadrant pain that has been constant since 4:00 a.m. this morning. Patient reports that she was in her usual state of health yesterday. She does endorse nausea and a slight headache. She denies any fevers, chills. She does report that the right upper quadrant pain radiates into her chest and into her back. She states no history of similar symptoms in the past. She states that she ate ice cream, crackers, and all a lot of other foods last night. She went to bed at 11:00 p.m. last bowel movement was yesterday, normal. No urinary symptoms. No other complaints or concerns at this time. MD elicited complaint: abdominal pain Onset (ago): hour(s) Pain Consistency: constant Location: RUQ Severity: moderate Quality: aching Radiation: back Exacerbating factors: nothing Relieving factors: nothing Associated symptoms: nausea Related Data Home Medications ?Medication ?Instructions ?Recorded ?Confirmed fluoxetine 20 mg capsule (Prozac) 2 cap PO QAM 06/10/21 12/01/23 gabapentin 100 mg capsule 1 cap PO BEDTIME 06/10/21 12/01/23 prazosin 2 mg capsule 2 cap PO BEDTIME 06/10/21 12/01/23 levothyroxine 75 mcg tablet 75 mcg PO QAM 05/23/22 12/01/23 sertraline 100 mg tablet 150 mg PO QAM 05/23/22 12/01/23 albuterol sulfate 90 mcg/actuation 2 puff inhalation Q4-6H PRN 03/24/23 12/01/23 aerosol inhaler (Ventolin HFA) atenolol 25 mg tablet 25 mg PO QAM 03/24/23 12/01/23 fluticasone propionate 50 2 spray intranasal DAILY 03/24/23 12/01/23 mcg/actuation nasal spray,suspension lisinopril 5 mg tablet 5 mg PO QAM 03/24/23 12/01/23 loratadine 10 mg tablet 10 mg PO QAM PRN allergies 03/24/23 12/01/23 bupropion HCl 150 mg 24 hr tablet, 150 mg PO DAILY 04/20/25 extended release fluticasone furoate 100 1 inh inhalation DAILY 04/20/25 mcg/actuation blister powder for inhalation (Arnuity Ellipta) rosuvastatin 20 mg tablet 20 mg PO BEDTIME 04/20/25 Previous Rx's ?Medication ?Instructions ?Recorded cyclobenzaprine 10 mg tablet 10 mg PO TID PRN muscle spasm #15 04/10/24 tabs lidocaine 5 % topical patch 1 patch topical DAILY #15 ea 04/10/24 (Lidoderm) naproxen 500 mg tablet 500 mg PO BID PRN pain #30 tabs 04/10/24 terconazole 0.8 % vaginal cream 1 appful vaginal BEDTIME 3 days 06/22/24 #20 grams dicyclomine 20 mg tablet 20 mg PO TID 30 days #90 tabs 04/20/25 metoclopramide HCl 10 mg tablet 10 mg PO .tidac #90 tabs 04/20/25 (Reglan) pantoprazole 40 mg tablet,delayed 40 mg PO BID #60 tabs 04/20/25 release simethicone 180 mg capsule 180 mg PO QID #120 caps 04/20/25 amoxicillin 875 mg-potassium 1 tab PO BID 10 days #20 tabs 06/20/25 clavulanate 125 mg tablet hydrocortisone 2.5 % topical cream 1 appl [place] BID hemorrhoids #30 grams 06/20/25 with perineal applicator (Proctosol HC) hydrocortisone 2.5 % topical cream 1 appl IL BID hemorrhoids #30 grams 06/20/25 with perineal applicator (Proctosol HC) Allergies Allergy/AdvReac Type Severity Reaction Status Date / Time No Known Allergies (No Known Allergy Verified 07/18/25 07:06 Allergies*) Review of Systems Review of Systems Yes all other systems are reviewed and are negative Constitutional: Reports as per [facility] Past Medical History Medical History (Updated 07/18/25 @ 12:10 by Kaelyn Shiva, PA) Abdominal bloating Postmenopausal bleeding Unsatisfactory cervical Papanicolaou smear Chronic idiopathic constipation Urinary frequency Diverticulitis Epigastric pain Transaminitis COVID-19 Well woman exam Bacterial vaginosis Uterine mass COVID-19 Well woman exam Smoker Bacterial vaginosis Hypertension Tubular adenoma of colon LLQ abdominal pain 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 Gastritis Surgical History Hx of hernia repair History of esophagogastroduodenoscopy (EGD) Hx of colonoscopy Family History Family History Father Family history of prostate problems Colon cancer Mother Tumor Social History Social History Household Members: None Alcohol intake: never Patient Tobacco Use Status: Current everyday Tobacco user Cigarettes Per Day: 2 Smoked in Last 30 Days: No Use of substances other than those prescribed or required for medical reasons: No Advance Directives: No Advance Directives Information Provided: No Current occupational status: disabled Physical Exam ED Vital Signs: Vital Signs - 24 hr 07/18/25 07:05 07/18/25 11:30 Temperature 98.1 F 97.7 F Pulse Rate 51 52 Respiratory Rate 16 18 Blood Pressure 147/75 H 172/85 H Pulse Oximetry 95 96 Oxygen Delivery Method Room Air Room Air BMI result Body Mass Index 32.9 Const General: cooperative, comfortable and no acute distress Orientation/consciousness: patient oriented x3 Limitations: no limitations HENMT Head: Yes normal to inspection, Yes normocephalic and Yes atraumatic Ears: hearing grossly normal bilaterally General nose exam: Normal external nose present Face and sinus: Yes normal facial exam Mouth: Normal oral and palatal mucosa present, oropharynx normal and moist mucous membranes Throat: Yes posterior oropharynx normal Eyes General: appearance normal, both eyes and all related structures Eyelids: Yes eyelids normal Conjunctivae: conjunctivae normal Sclerae: sclerae normal Pupils: Equal, round and reactive pupils present EOM: EOMs intact bilaterally Neck Neck: Yes normal visual inspection, Yes full ROM and Yes no lymphadenopathy Lymphatic: no lymphadenopathy noted Chest Chest palpation & inspection: normal inspection of the chest Resp Effort & Inspection: normal respiratory effort and able to speak in complete sentences Auscultation: clear to auscultation bilaterally, no crackles, no rales, no rhonchi and no wheezes Cardio Rate: regular rate Rhythm: regular rhythm Heart sounds: S1 normal heart sound present and S2 normal heart sound present GI Other: Abdomen is soft, with tenderness palpation in the right upper quadrant, no rebound or guarding. Inspection: Yes normal to inspection Skin General skin exam: no rashes or lesions noted Trauma: no lacerations or abrasions Wounds: no wounds Neuro General: patient oriented x3 and moves all extremities Cranial nerves: Yes Equal, round and reactive pupils present Extrem General: Yes normal to inspection Right upper extremity: normal to inspection Left upper extremity: normal to inspection Right lower extremity: normal to inspection Left lower extremity: normal to inspection Medical Decision Making Medical Decision Making MDM Narrative: This is a 65-year-old female who presents emergency department with complaints of right upper quadrant pain that started at 4:00 a.m. this morning. This pain woke her out of sleep. On arrival, blood pressure mildly elevated at 147/75, all other vital signs within normal limits. She is speaking full sentences under no acute distress. Abdomen is soft with mild tenderness palpation in the right upper quadrant, negative Garnica's sign. Differential diagnoses include cholecystitis, cholangitis, biliary colic, atypical ACS. Plan: Labs, EKG, ultrasound right upper quadrant, medicate with IV Tylenol, IV Zofran, and IV fluids. 8:40 AM 07/18/2025 (Kaelyn Shannon PA-C): Labs returned, she has no leukocytosis, H&H stable, chemistry revealing no significant electrolyte derangement. She does have mild hyperglycemia at 2O2, she does have a history of diabetes. Lipase within normal limits, liver transaminases within normal limits. Added troponin due to epigastric/right upper quadrant pain as well as EKG. We will continue to monitor pending overall workup. 11:37 AM 07/18/2025 (Kaelyn Shannon PA-C): Ultrasound revealing cholelithiasis possible cholecystitis. There is echogenic material in the neck of the gallbladder that does not shadow. This could represent a polyp, sludge, or small stone. There is trace pericholecystic fluid noted. Gallbladder thickness his mostly within normal limits however they are focal areas of mild thickening. Will obtain lactic, cultures, and medicate with IV ceftriaxone. Patient reporting 6/10 pain, does not want additional pain medication at this time. We will reach out to surgery for consultation in regards to ultrasound findings. 11:50 AM 07/18/2025 (Kaelyn Shannon PA-C): Discussed with surgeon, Dr. Vega. Given unclear if this is a straight for cholecystitis however patient has had constant pain since 4:00 a.m. this morning. Patient reports that she would feel more comfortable being admitted to the hospital given her ongoing pain. She is agreeable for cholecystectomy if this is deemed necessary by the surgical team. We will admit to the surgical service for further management and intervention. Patient is agreeable Differential Diagnosis Differential Diagnoses: The differential diagnosis associated with the presentation includes See above Admission/Observation Consideration of admission/observation: Escalation of care including admission/observation considered Consult Healthcare Provider Management of the patient was discussed with: Cook Cashier Food Prep Surgeon, Dr. Vega Lab Data MDM Lab Attestation statement: I reviewed the patient's lab results. See MDM and course 07/18/25 07:55 07/18/25 07:55 Labs: Lab Results 07/18/25 07/18/25 Range/Units 07:55 10:05 WBC 8.4 (4.8-10.8) X10*3/uL RBC 4.32 (4.20-5.50) X10*6/uL Hgb 12.8 (12.0-16.0) g/dl Hct 38.3 (37.0-47.0) % MCV 88.7 (80.0-98.0) fL MCH 29.6 (27.0-33.0) pg MCHC 33.4 (31.0-35.0) g/dl RDW 14.9 (11.0-16.0) % Plt Count 244 (160-400) X10*3/uL MPV 10.6 (9.4-12.3) fL Immature Gran % (Auto) 0.4 (0.0-0.4) % Neut % (Auto) 54.2 (45-73) % Lymph % (Auto) 35.4 (20-40) % [place] % (Auto) 6.7 (2-11) % Eos % (Auto) 2.8 (0-4) % Baso % (Auto) 0.5 (0-2) % Lymph # (Auto) 3.0 (1.2-4.9) X10*3/uL [place] # (Auto) 0.6 (0.1-1.2) X10*3/uL Eos # (Auto) 0.2 (0.0-0.4) X10*3/uL Baso # (Auto) 0.0 (0.0-0.2) X10*3/uL Abs Immat Gran (auto) 0.03 (0.00-0.03) X10*3/uL Absolute Neuts (auto) 4.5 (2.0-8.3) x10*3/uL Absolute Nucleated RBC 0.000 (0.0-0.012) X10*3/uL Nucleated RBC % (auto) 0.0 (0.0-0.2) /100WBC Sodium 138 (135-145) mmol/L Potassium 3.9 (3.3-5.1) mmol/L Chloride 105 (96-108) mmol/L Carbon Dioxide 26 (22-29) mmol/L Anion Gap 11 L (12-20) BUN 16 (9-16) mg/dL Creatinine 0.72 (0.5-1.4) mg/dL Estim Creat Clear Calc 79.0 Estimated GFR > 60 Random Glucose 202 H (60-115) mg/dL Calcium 8.9 D (8.4-10.2) mg/dL Total Bilirubin 0.3 (0.0-1.0) mg/dL Direct Bilirubin 0.2 (0.0-0.5) mg/dL AST 20 (5-31) U/L ALT 12 (0-31) U/L Alkaline Phosphatase 82 (39-117) U/L Troponin I High Sens < 2.7 (<3.5-17.0) ng/L Total Protein 6.1 L (6.5-8.0) g/dL Albumin 3.8 (3.5-5.0) g/dL Lipase 33 (8-78) U/L Urine Color Yellow Urine Appearance Clear Urine pH 5.5 (5.0-9.0) Ur Specific [place] 1.025 (1.005-1.025) Urine Protein Negative (Neg-Trace) mg/dL Urine Glucose (UA) Negative (Negative) mg/dL Urine Ketones Negative (Negative) mg/dL Urine Blood Trace H (Negative) Urine Nitrite Negative (Negative) Ur Leukocyte Esterase Negative (Negative) Urine RBC 0-2 (0-2) /HPF Urine WBC 0-5 (0-5) /HPF Ur Squamous Epith Cells 0-2 (0-2) /HPF Urine Bacteria Trace (None Seen) Hyaline Casts 3-5 (0-2) /LPF Independent Interpretation I performed an independent interpretation of an: EKG Interpretation: EKG sinus bradycardic at a ventricular rate of 49 beats per minute, IL interval 164, QT QTC 474/428, no STEMI. Radiology Impression Discussion of test interpretation with radiology: I have reviewed the radiologist's reading. Radiologist Impression: FINDINGS: GALLBLADDER: Echogenic shadowing stones are present layering within the gallbladder. There is an echogenic focus without posterior acoustic shadowing in the neck of the gallbladder. Trace pericholecystic fluid is present. Portions of the gallbladder wall appear mildly thickened. However, the ophthalmic technologist reports no gallbladder tenderness with transducer pressure over the gallbladder. COMMON BILE DUCT: Normal in caliber measuring 0.6 cm in diameter. US/US abdomen limited IMPRESSION: Cholelithiasis with possible cholecystitis. There is echogenic material in the neck of the gallbladder that does not shadow. This could represent a polyp, sludge, or small stone. Trace pericholecystic fluid is noted. Gallbladder wall thickness is mostly within normal limits, however there are focal areas of mild thickening. Electronically signed by: Arturo Pimentel MD 07/18/2025 10:22 AM EDT Dictated By: Arturo Pimentel MD Medications Administered Discontinued Medications Generic Name Dose Route Start Last Admin Trade Name Freq PRN Reason Stop Dose Admin Ceftriaxone Sodium 1 gm 07/18/25 11:28 07/18/25 11:48 Ceftriaxone Sodium 1 Gm Vial IVPUSH 07/18/25 11:29 1 gm ONCE ONE Administration Acetaminophen 1,000 mg in 100 mls @ 400 mls/hr 07/18/25 08:34 07/18/25 08:59 Ofirmev IV 07/18/25 08:48 Infused ONCE ONE Infusion Sodium Chloride 1,000 mls @ 999 mls/hr 07/18/25 08:35 07/18/25 10:00 Ns IV 07/18/25 09:35 Infused .Q1H1M ONE Infusion Ondansetron HCl 4 mg 07/18/25 08:34 07/18/25 08:43 Ondansetron Hcl 4 Mg/2 Ml Vial IVPUSH 07/18/25 08:35 4 mg ONCE ONE Administration Critical Care Time Critical Care Time Critical Care Time: Yes Total Critical Care Time: 35 Attestation: I have personally provided critical care time exclusive of time spent on separately billable procedures. Time includes review of lab data, radiology results, discussion with consultants, and monitoring for potential decompensation. Intervention performed as documented. Discharge Plan Discharge Clinical Impression: Cholelithiasis, Cholecystitis Patient Disposition: Admitted As Inpatient Print Language: Bots[place]an
[2025-07-18 08:18] LABS: Alanine Aminotransferase 12 U/L (0-31); Albumin Level 3.8 g/dL (3.5-5.0); Alkaline Phosphatase 82 U/L (39-117); Anion Gap 11 (12-20); Aspartate Amino Transferase 20 U/L (5-31); Blood Urea Nitrogen 16 mg/dL (9-16); Calcium 8.9 mg/dL (8.4-10.2); Carbon Dioxide 26 mmol/L (22-29); Chloride 105 mmol/L (96-108); Creatinine Clr Calc Pharmacy 79.0; Estimated Glomerular Filt Rate > 60; Lipase 33 U/L (8-78); Potassium 3.9 mmol/L (3.3-5.1); Sodium 138 mmol/L (135-145); Total Protein 6.1 g/dL (6.5-8.0)
--- NOTE | 2025-07-18 08:34 | ECG_ITS ---
Test Reason : epigastric pain Blood Pressure : */* mmHG Vent. Rate : 49 BPM Atrial Rate : 49 BPM P-R Int : 164 ms QRS Dur : 76 ms QT Int : 474 ms P-R-T Axes : 71 30 48 degrees QTcB Int : 428 ms Sinus bradycardia Cannot rule out Anterior infarct (cited on or before 17-Sep-2023) Abnormal ECG When compared with ECG of 17-Sep-2023 08:02, No significant change was found Referred By: Kaelyn Shannon Electronically Signed By: BRUNILDA CANTU
[2025-07-18 09:03] LABS: Troponin-I High Sensitivity < 2.7 ng/L (<3.5-17.0)
[2025-07-18 10:12] LABS: Appearance Urine Clear; Glucose Urine UA Negative (Negative); PH 5.5 (5.0-9.0); Specific Gravity - Urine 1.025 (1.005-1.025); UMIC TRIGGER UACC YES
[2025-07-18] MEDS: Lactated Ringers 1,000 ML 100 ML IVCONT ×2 (12:20→22:40)
--- NOTE | 2025-07-18 14:44 | PHA.MEDREC ---
Addendum entered by Otilio Molina PharmD 07/18/25 14:48: reviewed Original Note: Pharmacy Consult ? Medication Reconciliation Pharmacy has completed the medication reconciliation. Spoke to patient through lining stamper service to confirm med list. patient is a poor historian. Utilized list from [facility] pharmacy.
--- NOTE | 2025-07-18 15:06 | PM.HPGS ---
History of Present Illness History of Present Illness Date of Service: 07/18/25 Chief complaint: abd pain Narrative: Sridevi Pruitt I is a 65 year old female who woke up at 4:00am with very strong abdominal pain in the right upper quadrant with nausea and vomiting no radiation of pain. she has never had pain like this before. No family history of gallbladder issues. She did eat junk foot yesterday and lots of little ice cream cups. No other sick contacts. Here in the ER labs are normal but pt tender in ruq area with guarding and u/s showing gallstones/sludge and some thickness of the abdo wall - maybe early cholecystitis. Pt feeling a little better with pain meds now. She is not working [employer] Past Medical History Medical History (Updated 07/18/25 @ 12:10 by ENDY Martins) Abdominal bloating Postmenopausal bleeding Unsatisfactory cervical Papanicolaou smear Chronic idiopathic constipation Urinary frequency Diverticulitis Epigastric pain Transaminitis COVID-19 Well woman exam Bacterial vaginosis Uterine mass COVID-19 Well woman exam Smoker Bacterial vaginosis Hypertension Tubular adenoma of colon LLQ abdominal pain 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 Gastritis Family History Family History Father Family history of prostate problems Colon cancer Mother Tumor Surgical History Surgical History Hx of hernia repair History of esophagogastroduodenoscopy (EGD) Hx of colonoscopy Social History Social History Household Members: None Housing: Apartment Do you presently have visiting nurse or other home services: Yes ([employer] 15/week) Alcohol intake: never Patient Tobacco Use Status: Current everyday Tobacco user Tobacco use type: Cigarette Cigarettes Per Day: 2 Years Smoked: 20 Smoked in Last 30 Days: Yes e-Cigarette/Vaping Use: Never Used Patient Interested in Nicotine Replacement: No Patient Given Instructions on How to Stop Smoking: No Second Hand Smoke Exposure: No Use of substances other than those prescribed or required for medical reasons: No Have you been hit, kicked, punched, or otherwise hurt by someone within the past year? If so, by whom?: No Do you feel safe in your current relationship?: Yes Is there a partner from a previous relationship who is making you feel unsafe now?: No Are you made to feel afraid or neglected: No Advance Directives: No Advance Directives Information Provided: No Do you have a plan to hurt others: No Plan Recently lost weight without trying: Yes How much weight loss: 2-13 pounds Eating poorly because of decreased appetite: Yes Nutrition screen score: 4 Nutrition Risks: No Nutritional Risk Patient : No : No Poor oral hygiene: No Current occupational status: disabled Meds Allergies Allergy/AdvReac Type Severity Reaction Status Date / Time No Known Allergies (No Known Allergy Verified 07/18/25 07:06 Allergies*) Active Medications: Current Medications Lactated Ringer's (Lr) 1,000 mls @ 100 mls/hr IVCONT .Q10H [facility] Last Admin: 07/18/25 12:20 Dose: 100 mls/hr Melatonin (Melatonin 3 Mg Tablet) 6 mg PO BEDTIME PRN PRN Reason: Insomnia Morphine Sulfate (Morphine Sulfate 4 Mg/Ml Cartridge) 3 mg IVPUSH RQ4H PRN; Protocol PRN Reason: Pain, Severe (Pain Scale 7-10) Ondansetron HCl (Ondansetron Hcl 4 Mg/2 Ml Vial) 4 mg IVPUSH RQ6H PRN PRN Reason: Nausea and Vomiting Sodium Chloride (0.9 % Sodium Chloride Flush 3 Ml Syringe) 3 ml IVFLUSH QSHIFT [facility] Home Medications ?Medication ?Instructions ?Recorded ?Confirmed ?Last Taken ?Type levothyroxine 75 mcg tablet 75 mcg PO DAILY@0630 05/23/22 07/18/25 07/17/25 History sertraline 100 mg tablet 150 mg PO QAM 05/23/22 07/18/25 07/17/25 History atenolol 25 mg tablet 25 mg PO DAILY 03/24/23 07/18/25 07/17/25 History fluticasone propionate 50 2 spray intranasal DAILY 03/24/23 07/18/25 07/17/25 History mcg/actuation nasal spray,suspension bupropion HCl 150 mg 24 hr tablet, 150 mg PO DAILY 04/20/25 07/18/25 07/17/25 History extended release rosuvastatin 20 mg tablet 20 mg PO BEDTIME 04/20/25 07/18/25 07/17/25 History bupropion HCl 300 mg 24 hr tablet, 300 mg PO DAILY 07/18/25 07/18/25 07/17/25 History extended release fluticasone furoate 100 1 inh inhalation DAILY 07/18/25 07/18/25 07/17/25 History mcg/actuation blister powder for inhalation (Arnuity Ellipta) metformin 500 mg tablet,extended 500 mg PO DAILY 07/18/25 07/18/25 07/17/25 History release 24 hr metoclopramide HCl 10 mg tablet 10 mg PO TID 07/18/25 07/18/25 07/17/25 History (Reglan) valsartan 80 mg tablet 80 mg PO DAILY 07/18/25 07/18/25 07/17/25 History Physical Exam Vital Signs: Vital Signs: Last Vital Signs Temp 97.6 F 07/18/25 14:50 Pulse 51 07/18/25 14:50 Resp 16 07/18/25 14:50 BP 160/72 H 07/18/25 14:50 Pulse Ox 96 07/18/25 14:50 O2 Del Method Room Air 07/18/25 14:50 BMI result Body Mass Index 32.9 Const: General: cooperative, healthy appearing, comfortable and no acute distress Resp: Effort & Inspection: normal respiratory effort Auscultation: clear to auscultation bilaterally Cardio: Rate: regular rate Rhythm: regular rhythm GI: Other: abdomen is soft and tender in right upper quadrant with guarding no peritoneal signs Results Results Labs: Short CBC 07/18/25 Range/Units 07:55 WBC 8.4 (4.8-10.8) X10*3/uL Hgb 12.8 (12.0-16.0) g/dl Hct 38.3 (37.0-47.0) % Plt Count 244 (160-400) X10*3/uL BMP 07/18/25 07:55 Sodium 138 Potassium 3.9 Chloride 105 Carbon Dioxide 26 BUN 16 Creatinine 0.72 Calcium 8.9 D Liver Function 07/18/25 Range/Units 07:55 Total Bilirubin 0.3 (0.0-1.0) mg/dL Direct Bilirubin 0.2 (0.0-0.5) mg/dL AST 20 (5-31) U/L ALT 12 (0-31) U/L Alkaline Phosphatase 82 (39-117) U/L Albumin 3.8 (3.5-5.0) g/dL Urine 07/18/25 Range/Units 10:05 Urine Color Yellow Urine Appearance Clear Urine pH 5.5 (5.0-9.0) Ur Specific [place] 1.025 (1.005-1.025) Urine Protein Negative (Neg-Trace) mg/dL Urine Glucose (UA) Negative (Negative) mg/dL Assessment and Plan (1) Cholelithiasis: Status: Acute Plan 65 year old female with biliary colic possible open cholecystitis - plan to admit npo ivf antibiotics and plan for lap rita. risks and benefits discussed with the pt including not limited to bleeding infection bowel and organ injury bile duct leak. conversation and consent obtained with washer blanket and pt understands and agrees to proceed with plan Quality Stroke Does the patient have a stroke diagnosis?: No VTE Prior VTE?: No VTE Risk Level:: Surgical - low VTE Device Contraindication: N/A - Device Ordered VTE Drug Contraindication: Treatment Not Indicated Procedures Date of Service Date of Service: 07/18/25
[2025-07-18 18:06] LABS: Glucose, Whole Blood 107 mg/dL (60-115)
--- NOTE | 2025-07-18 18:06 | HO.ANESPROP2 ---
HPI - Anesthesia Eval Consult details Narrative: Acute cholelithiasis PMFSH Active Problems Active Problems: All Active Problems (Updated 07/18/25 @ 12:10 by ENDY Martins) Cholecystitis (Acute) Cholelithiasis (Acute) Abdominal bloating (Acute) Osteopenia (Acute) Pain of both breasts (Acute) Erosive gastritis (Acute) Leiomyoma (Acute) Pelvic pain (Acute) Delayed gastric emptying (Acute) Tubular adenoma of colon (Acute) Abdominal cramping (Acute) Hemorrhoids (Acute) GERD (gastroesophageal reflux disease) (Acute) Past Medical History Medical History (Updated 07/18/25 @ 12:10 by ENDY Martins) Abdominal bloating Postmenopausal bleeding Unsatisfactory cervical Papanicolaou smear Chronic idiopathic constipation Urinary frequency Diverticulitis Epigastric pain Transaminitis COVID-19 Well woman exam Bacterial vaginosis Uterine mass COVID-19 Well woman exam Smoker Bacterial vaginosis Hypertension Tubular adenoma of colon LLQ abdominal pain 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 Gastritis Family History Family History Father Family history of prostate problems Colon cancer Mother Tumor Family history of problems with anesthesia: No Surgical History Surgical History Hx of hernia repair History of esophagogastroduodenoscopy (EGD) Hx of colonoscopy History of Problems with Anesthesia: No Social History Social History Household Members: None Housing: Apartment Do you presently have visiting nurse or other home services: Yes ([employer] 15/week) Alcohol intake: never Patient Tobacco Use Status: Current everyday Tobacco user Tobacco use type: Cigarette Cigarettes Per Day: 2 Years Smoked: 20 Smoked in Last 30 Days: Yes e-Cigarette/Vaping Use: Never Used Patient Interested in Nicotine Replacement: No Patient Given Instructions on How to Stop Smoking: No Second Hand Smoke Exposure: No Use of substances other than those prescribed or required for medical reasons: No Currently Displaying Signs/Symptoms of Drug Intoxication Withdrawal: No Have you been hit, kicked, punched, or otherwise hurt by someone within the past year? If so, by whom?: No Do you feel safe in your current relationship?: Yes Is there a partner from a previous relationship who is making you feel unsafe now?: No Are you made to feel afraid or neglected: No Advance Directives: No Advance Directives Information Provided: No Do you have a plan to hurt others: No Plan Recently lost weight without trying: Yes How much weight loss: 2-13 pounds Eating poorly because of decreased appetite: Yes Nutrition screen score: 4 Nutrition Risks: No Nutritional Risk Patient : No : No Poor oral hygiene: No Current occupational status: disabled Meds Allergies Allergy/AdvReac Type Severity Reaction Status Date / Time No Known Allergies (No Known Allergy Verified 07/18/25 07:06 Allergies*) Active Medications: Current Medications Acetaminophen (Acetaminophen 325 Mg Tablet) 650 mg PO Q4H PRN PRN Reason: Headache Lactated Ringer's (Lr) 1,000 mls @ 100 mls/hr IVCONT .Q10H [facility] Last Admin: 07/18/25 12:20 Dose: 100 mls/hr Melatonin (Melatonin 3 Mg Tablet) 6 mg PO BEDTIME PRN PRN Reason: Insomnia Morphine Sulfate (Morphine Sulfate 4 Mg/Ml Cartridge) 3 mg IVPUSH RQ4H PRN; Protocol PRN Reason: Pain, Severe (Pain Scale 7-10) Ondansetron HCl (Ondansetron Hcl 4 Mg/2 Ml Vial) 4 mg IVPUSH RQ6H PRN PRN Reason: Nausea and Vomiting Sodium Chloride (0.9 % Sodium Chloride Flush 3 Ml Syringe) 3 ml IVFLUSH QSHIFT [facility] Last Admin: 07/18/25 15:29 Dose: Not Given Home Medications ?Medication ?Instructions ?Recorded ?Confirmed ?Last Taken ?Type levothyroxine 75 mcg tablet 75 mcg PO DAILY@0630 05/23/22 07/18/25 07/17/25 History sertraline 100 mg tablet 150 mg PO QAM 05/23/22 07/18/25 07/17/25 History atenolol 25 mg tablet 25 mg PO DAILY 03/24/23 07/18/25 07/17/25 History fluticasone propionate 50 2 spray intranasal DAILY 03/24/23 07/18/25 07/17/25 History mcg/actuation nasal spray,suspension bupropion HCl 150 mg 24 hr tablet, 150 mg PO DAILY 04/20/25 07/18/25 07/17/25 History extended release rosuvastatin 20 mg tablet 20 mg PO BEDTIME 04/20/25 07/18/25 07/17/25 History bupropion HCl 300 mg 24 hr tablet, 300 mg PO DAILY 07/18/25 07/18/25 07/17/25 History extended release fluticasone furoate 100 1 inh inhalation DAILY 07/18/25 07/18/25 07/17/25 History mcg/actuation blister powder for inhalation (Arnuity Ellipta) metformin 500 mg tablet,extended 500 mg PO DAILY 07/18/25 07/18/25 07/17/25 History release 24 hr metoclopramide HCl 10 mg tablet 10 mg PO TID 07/18/25 07/18/25 07/17/25 History (Reglan) valsartan 80 mg tablet 80 mg PO DAILY 07/18/25 07/18/25 07/17/25 History Exam Height,Weight and Vital Signs: Height 5 ft 3 in Weight 84.2 kg Last Vital Signs Temp 97.9 F 07/18/25 17:49 Pulse 52 07/18/25 17:49 Resp 18 07/18/25 17:49 BP 163/86 H 07/18/25 17:49 Pulse Ox 96 07/18/25 17:49 O2 Del Method Room Air 07/18/25 17:49 Pertinent Lab Results Pertinent Lab Results: Laboratory Tests 07/18/25 07/18/25 07/18/25 07:55 10:05 11:55 WBC 8.4 RBC 4.32 Hgb 12.8 Hct 38.3 MCV 88.7 MCH 29.6 MCHC 33.4 RDW 14.9 Plt Count 244 MPV 10.6 Immature Gran % (Auto) 0.4 Neut % (Auto) 54.2 Lymph % (Auto) 35.4 [place] % (Auto) 6.7 Eos % (Auto) 2.8 Baso % (Auto) 0.5 Lymph # (Auto) 3.0 [place] # (Auto) 0.6 Eos # (Auto) 0.2 Baso # (Auto) 0.0 Abs Immat Gran (auto) 0.03 Absolute Neuts (auto) 4.5 Absolute Nucleated RBC 0.000 Nucleated RBC % (auto) 0.0 Sodium 138 Potassium 3.9 Chloride 105 Carbon Dioxide 26 Anion Gap 11 L BUN 16 Creatinine 0.72 Estim Creat Clear Calc 79.0 Estimated GFR > 60 Random Glucose 202 H Lactic Acid 0.8 Calcium 8.9 D Total Bilirubin 0.3 Direct Bilirubin 0.2 AST 20 ALT 12 Alkaline Phosphatase 82 Troponin I High Sens < 2.7 Total Protein 6.1 L Albumin 3.8 Lipase 33 Urine Color Yellow Urine Appearance Clear Urine pH 5.5 Ur Specific [place] 1.025 Urine Protein Negative Urine Glucose (UA) Negative Urine Ketones Negative Urine Blood Trace H Urine Nitrite Negative Ur Leukocyte Esterase Negative Urine RBC 0-2 Urine WBC 0-5 Ur Squamous Epith Cells 0-2 Urine Bacteria Trace Hyaline Casts 3-5 Blood Type Antibody Screen 07/18/25 12:59 WBC RBC Hgb Hct MCV MCH MCHC RDW Plt Count MPV Immature Gran % (Auto) Neut % (Auto) Lymph % (Auto) [place] % (Auto) Eos % (Auto) Baso % (Auto) Lymph # (Auto) [place] # (Auto) Eos # (Auto) Baso # (Auto) Abs Immat Gran (auto) Absolute Neuts (auto) Absolute Nucleated RBC Nucleated RBC % (auto) Sodium Potassium Chloride Carbon Dioxide Anion Gap BUN Creatinine Estim Creat Clear Calc Estimated GFR Random Glucose Lactic Acid Calcium Total Bilirubin Direct Bilirubin AST ALT Alkaline Phosphatase Troponin I High Sens Total Protein Albumin Lipase Urine Color Urine Appearance Urine pH Ur Specific [place] Urine Protein Urine Glucose (UA) Urine Ketones Urine Blood Urine Nitrite Ur Leukocyte Esterase Urine RBC Urine WBC Ur Squamous Epith Cells Urine Bacteria Hyaline Casts Blood Type A Positive Antibody Screen NEGATIVE Airway Mallampati Class: II TM Dist: >3cm Neck ROM: Full Loose/Missing/Broken Teeth: No Heart: RRR Lungs: CTA Assessment and Plan Final Anesthetic Review Family History of Problems with Anesthesia: No History of Problems with Anesthesia: No ASA Class: III Patient Risk: Intermediate Procedure Risk: Intermediate Anesthetic Plan Anesthetic Plan: GA Disposition: Standard PACU
--- NOTE | 2025-07-18 18:37 | PC.NURSE ---
Surgeon messaged inquiry regarding whether additional abx required. No additional pre op abx.
--- NOTE | 2025-07-18 20:08 | P.OP_ITS ---
Operative Note Operative Note Date of Service: 07/18/25 Narrative: Preop diagnosis--biliary colic Postop diagnosis--biliary colic with some chronic cholecystitis Procedure--laparoscopic cholecystectomy Surgeon--Gary Anesthesia--general endotracheal tube anesthesia Patient is a 65-year-old female who presented with about a 8 hour history of abdominal pain that woke her up right upper quadrant nausea and vomiting after eating a lot of junk food yesterday. LFTs white count was normal but she was tender in the right upper quadrant and gallstones were noted with sludge in her gallbladder. As a result she comes in now for laparoscopic cholecystectomy Findings--findings consistent with some adhesions documenting maybe some mild chronic cholecystitis as well as small granular stones. Procedure-- Patient was brought to the operative room under Anesthesia guidance was intuba sal. Please see anesthesia records for details. She had compression stockings placed before induction received preoperative antibiotics. Her abdomen was prepped and draped in standard surgical fashion. An infraumbilical incision was created after numbing up the area with a 0.25% Marcaine with epinephrine dissection was carried down to the anterior abdominal wall fascia which was grasped with Roque's and transected. 0 Vicryl pursestring suture placed. Three 5 mm ports were then placed under direct visualization after the [place] trocar was introduced and pneumoperitoneum established to 15 mm mercury pressure. The gallbladder was identified in the right upper quadrant and was grasped with a grasper and then some fatty adhesions from the omentum were bluntly taken down. The gallbladder was now retracted superiorly and laterally. Initially going in there was quite a a bit of air in the stomach and this was decompressed by anesthesia and starting an OG tube. The triangle of [place] area was now dissected out bluntly in the cystic duct cystic artery were well identified with a critical view. Three clips were placed down on the cystic duct 1 up in the transected and 2 clips were placed down and 1 up on the cystic artery and it was transected. Using the [place] and then eventually the hook cautery the gallbladder was removed from the liver base. It was put in an Endo- Catch bag and removed from the infraumbilical port site. Pneumoperitoneum was need reestablished and the liver bed looked dry and the cystic duct stump clips and artery clips looked intact and fine. Quick evaluation of the abdominal contents revealed no other notable issues. Ports were then removed under direct visualization in the infraumbilical pursestring approximated. There was still little bit of a gap here so another figure of 8 0 Vicryl was used to cinch up the anterior abdominal wall fascia and then the 2 sets of Vicryl sutures were tied to each other and transected. 4-0 Monocryl was used in interrupted subcuticular fashion to approximate the skin edges on the port sites and then Tegaderm were placed over Steri-Strips and gauze. At the end of the case all sponge instrument needle counts were correct estimated blood loss was about 3 cc specimens sent was the gallbladder. Patient was extubated returned stable to recovery room
[2025-07-18] MEDS: buPROPion HCl XL 150 MG TAB.ER.24H PO (21:28)
[2025-07-18] MEDS: oxyCODONE HCl Immed Release 5 MG TABLET PO (21:30)
[2025-07-18] MEDS: buPROPion HCl XL 300 MG TAB.ER.24H PO (21:31)
[2025-07-18] MEDS: 0.9 % Sodium Chloride Flush 3 ML SYRINGE IVFLUSH (21:33)
[2025-07-19 03:42] VITALS: BP 133/70; PULSE 63; RESP 18; TEMP 36.9; O2SAT 94
[2025-07-19] MEDS: oxyCODONE HCl Immed Release 5 MG TABLET 10 MG PO ×2 (07:08→10:51)
[2025-07-19 07:24] VITALS: BP 177/84; PULSE 60; RESP 18; TEMP 36.9; O2SAT 92
[2025-07-19] MEDS: buPROPion HCl XL 150 MG TAB.ER.24H PO (07:32)
[2025-07-19] MEDS: buPROPion HCl XL 300 MG TAB.ER.24H PO (07:32)
--- NOTE | 2025-07-19 08:08 | P.PNGS_ITS ---
Subjective Subjective Date of Service: 07/19/25 <Yasmin Tang PA-C - Last Filed: 07/19/25 08:13> 07/19/25 <Dex Silva MD - Last Filed: 07/19/25 08:19> Interval history: Pain is ok this morning. Has been OOB and ambulating to bathroom. Denies nausea, has not had solid food yet. <Yasmin Tang PA-C - Last Filed: 07/19/25 08:13> Physical Exam 2 Vital Signs: Vital Signs: Last Vital Signs Temp 98.5 F 07/19/25 07:24 Pulse 60 07/19/25 07:24 Resp 18 07/19/25 07:24 BP 177/84 H 07/19/25 07:24 Pulse Ox 92 07/19/25 07:24 O2 Del Method Room Air 07/19/25 07:24 O2 Flow Rate 1.5 07/18/25 20:42 BMI result Body Mass Index 32.9 <Yasmin Tang PA-C - Last Filed: 07/19/25 08:13> Const: General: comfortable, no acute distress and alert <Yasmin Tang PA-C - Last Filed: 07/19/25 08:13> Orientation/consciousness: patient oriented x3 <AJ Greco Last Filed: 07/19/25 08:13> Resp: Effort & Inspection: normal respiratory effort <Yasmin Tang PA-C - Last Filed: 07/19/25 08:13> GI: Inspection: Yes distended (mild) and Yes incision (dressings clean and intact) <Yasmin Tang PA-C - Last Filed: 07/19/25 08:13> Palpation (GI): Soft to palpation, Tenderness to palpation present (GI) (mild incisional) and no guarding <AJ Greco Last Filed: 07/19/25 08:13> Skin: General skin exam: no rashes or lesions noted and no jaundice < AJ Greco Last Filed: 07/19/25 08:13> Neuro: General: patient oriented x3 and moves all extremities <AJ Greco Last Filed: 07/19/25 08:13> Objective Data Active Medications Acetaminophen (Acetaminophen 325 Mg Tablet) 650 mg PO Q4H PRN PRN Reason: Headache Atenolol (Atenolol 25 Mg Tablet) 25 mg PO DAILY [facility]; Protocol Last Admin: 07/19/25 07:32 Dose: 25 mg Documented By: RAZIA Atorvastatin Calcium (Atorvastatin Calcium 80 Mg Tablet) 80 mg PO BEDTIME [facility] Last Admin: 07/18/25 21:28 Dose: 80 mg Documented By: REFUGIO Bupropion HCl (Bupropion Hcl Xl 300 Mg Tab.Er.24h) 300 mg PO DAILY [facility] Last Admin: 07/19/25 07:32 Dose: 300 mg Documented By: RAZIA Bupropion HCl (Bupropion Hcl Xl 150 Mg Tab.Er.24h) 150 mg PO DAILY [facility] Last Admin: 07/19/25 07:32 Dose: 150 mg Documented By: RAZIA Fluticasone Propionate (Fluticasone Propionate 100 Mcg Blst.W.Dev) 1 puff INHALE RBID [facility] Fluticasone Propionate (Fluticasone Propionate Nasal 16 Gm Browning) 2 spray NOSTRIL-B DAILY [facility] Last Admin: 07/19/25 07:34 Dose: Not Given Documented By: RAZIA Non-Admin Reason: Patient Refused Lactated Ringer's (Lr) 1,000 mls @ 100 mls/hr IVCONT .Q10H [facility] Last Admin: 07/19/25 07:34 Dose: Not Given Documented By: RAZIA Non-Admin Reason: IV Running Ketorolac Tromethamine (Ketorolac Tromethamine 15 Mg/Ml Vial) 15 mg IVPUSH Q6H [facility] Stop: 07/23/25 20:44 Last Admin: 07/19/25 07:33 Dose: 15 mg Documented By: RAZIA Melatonin (Melatonin 3 Mg Tablet) 6 mg PO BEDTIME PRN PRN Reason: Insomnia Morphine Sulfate (Morphine Sulfate 4 Mg/Ml Cartridge) 3 mg IVPUSH RQ4H PRN; Protocol PRN Reason: Pain, Severe (Pain Scale 7-10) Naloxone HCl (Naloxone Hcl 0.4 Mg/Ml Vial) 0.04 mg IVPUSH Q5M PRN PRN Reason: Excessive sedation or RR < 8 Omeprazole (Omeprazole 20 Mg Capsule.Dr) 40 mg PO BID@0630,1630 [facility] Last Admin: 07/19/25 05:36 Dose: 40 mg Documented By: REFUGIO Ondansetron HCl (Ondansetron Hcl 4 Mg/2 Ml Vial) 4 mg IVPUSH RQ6H PRN PRN Reason: Nausea and Vomiting Oxycodone HCl (Oxycodone Hcl Immed Release 5 Mg Tablet) 5 mg PO Q4H PRN PRN Reason: Pain, Mild (Pain Scale 1-3) Last Admin: 07/18/25 21:30 Dose: 5 mg Documented By: REFUGIO Oxycodone HCl (Oxycodone Hcl Immed Release 5 Mg Tablet) 10 mg PO Q4H PRN PRN Reason: Pain, Moderate(Pain Scale 4-6) Last Admin: 07/19/25 07:08 Dose: 10 mg Documented By: RAZIA Sertraline HCl (Sertraline Hcl 50 Mg Tablet) 150 mg PO DAILY [facility] Last Admin: 07/19/25 07:32 Dose: 150 mg Documented By: RAZIA Sodium Chloride (0.9 % Sodium Chloride Flush 3 Ml Syringe) 3 ml IVFLUSH QSHIFT [facility] Last Admin: 07/19/25 07:09 Dose: Not Given Documented By: RAZIA Non-Admin Reason: IV Running Valsartan (Valsartan 80 Mg Tablet) 80 mg PO DAILY [facility]; Protocol Last Admin: 07/19/25 07:32 Dose: 80 mg Documented By: RAZIA <Yasmin Tang PA-C - Last Filed: 07/19/25 08:13> Labs CBC & Chem 7: 07/18/25 07:55 07/18/25 07:55 <Yasmin Tang PA-C - Last Filed: 07/19/25 08:13> Labs: Laboratory Results - last 24 hr 07/18/25 07/18/25 07/18/25 07:55 10:05 11:55 Anion Gap 11 L Estim Creat Clear Calc 79.0 Estimated GFR > 60 POC Glucose Random Glucose 202 H Lactic Acid 0.8 Calcium 8.9 D Total Bilirubin 0.3 Direct Bilirubin 0.2 AST 20 ALT 12 Alkaline Phosphatase 82 Total Protein 6.1 L Albumin 3.8 Lipase 33 Urine Color Yellow Urine Appearance Clear Urine pH 5.5 Ur Specific [place] 1.025 Urine Protein Negative Urine Glucose (UA) Negative Urine Ketones Negative Urine Blood Trace H Urine Nitrite Negative Ur Leukocyte Esterase Negative Urine RBC 0-2 Urine WBC 0-5 Ur Squamous Epith Cells 0-2 Urine Bacteria Trace Hyaline Casts 3-5 Blood Type Antibody Screen 07/18/25 07/18/25 12:59 18:01 Anion Gap Estim Creat Clear Calc Estimated GFR POC Glucose 107 Random Glucose Lactic Acid Calcium Total Bilirubin Direct Bilirubin AST ALT Alkaline Phosphatase Total Protein Albumin Lipase Urine Color Urine Appearance Urine pH Ur Specific [place] Urine Protein Urine Glucose (UA) Urine Ketones Urine Blood Urine Nitrite Ur Leukocyte Esterase Urine RBC Urine WBC Ur Squamous Epith Cells Urine Bacteria Hyaline Casts Blood Type A Positive Antibody Screen NEGATIVE <Yasmin Tang PA-C - Last Filed: 07/19/25 08:13> Procedures Date of Service Date of Service: 07/19/25 <Yasmin Tang PA-C - Last Filed: 07/19/25 08:13> 07/19/25 <Dex Silva MD - Last Filed: 07/19/25 08:19> Progress Note: A&P Assessment and plan (1) S/P laparoscopic cholecystectomy: Status: Acute <Yasmin Tang PA-C - Last Filed: 07/19/25 08:13> Assessment and Plan: Feels well this morning Good pain control Denies nausea or vomiting Abdomen is soft and benign Dressings dry Looks well clinically Okay to DC home after breakfast if she tolerates this well Discharge instructions reinforced with the patient Seen and examined independently revit drafter used <Dex Silva MD - Last Filed: 07/19/25 08:19> Assessment and Plan: POD #1 s/p lap rita. Patient doing well overall. VSS. Abd exam benign with clean and intact dressings and appropriate post op tenderness. Will reassess later today, if tolerating solid diet. Stable for dc to home with f/u in office in 1-2 weeks. Patient comfortable with plan. <TIFFANY Greco - Last Filed: 07/19/25 08:13> Time Spent With Patient Time: Total time managing care of this patient today ____ minutes. <Yasmin Tang PA-C - Last Filed: 07/19/25 08:13> Quality Stroke Does the patient have a stroke diagnosis?: No <Yasmin Tang PA-C - Last Filed: 07/19/25 08:13> VTE Prior VTE?: No <Yasmin Tang PA-C - Last Filed: 07/19/25 08:13> VTE Risk Level:: Surgical - low <Yasmin Tang PA-C - Last Filed: 07/19/25 08:13> VTE Device Contraindication: N/A - Device Ordered <Yasmin Tang PA-C - Last Filed: 07/19/25 08:13> VTE Drug Contraindication: Treatment Not Indicated <Yasmin Tang PA-C - Last Filed: 07/19/25 08:13>
[2025-07-19] MEDS: Fluticasone Propionate 100 MCG BLST.W.DEV 1 PUFF INHALE (08:22)
[2025-07-19 08:24] VITALS: PULSE 52; RESP 16; O2SAT 95
--- NOTE | 2025-07-19 09:12 | HO.POSTANES ---
Post Anesthesia Evaluation Post Anesthesia Evaluation Date of Service: 07/19/25 Vital Signs: Vital Signs Temp Pulse Resp BP Pulse Ox O2 Del Method 07/19/25 08:24 52 16 07/19/25 07:24 98.5 F 60 18 177/84 H 92 Room Air 07/19/25 03:42 98.5 F 63 18 133/70 94 Room Air 07/18/25 23:42 98.6 F 61 18 135/71 94 Room Air Anesthesia: General Mental Status: Awake Pain Control: Satisfactory Nausea/Vomiting: None Hydration: Adequate Anesthesia-Related Issues: No Anes. Related Issues
--- NOTE | 2025-07-19 12:06 | PM.DS ---
DS: Providers Provider Date of Service: 07/19/25 Date of admission: 07/18/25 12:02 Date of discharge: 07/19/25 Primary care physician: Libra Barone MD Attending physician on admission: Savanah Vega Attending physician on discharge: Dex Silva DS: Diagnosis Discharge Diagnosis (1) S/P laparoscopic cholecystectomy: Status: Acute DS: Summary Hospital Course Hospital Course: HPI AT ADMISSION: Sridevi Pruitt I is a 65 year old female who woke up at 4:00am with very strong abdominal pain in the right upper quadrant with nausea and vomiting no radiation of pain. she has never had pain like this before. No family history of gallbladder issues. She did eat junk foot yesterday and lots of little ice cream cups. No other sick contacts. Here in the ER labs are normal but pt tender in ruq area with guarding and u/s showing gallstones/sludge and some thickness of the abdo wall - maybe early cholecystitis. Pt feeling a little better with pain meds now. She is not working. HOSPITAL COURSE: The patient was admitted to the surgical service for further treatment of the biliary colic. She elected to proceed with laparoscopic cholecystectomy, possible open. She was added onto the OR schedule for that day. On 07/18/25, a laparoscopic cholecystectomy was performed by Dr. Vega without complication. The patient tolerated the procedure well. She had an uncomplicated recovery course. On POD #1, she felt well and was tolerating a solid diet without nausea or vomiting, had good pain control and was ambulating without difficulty. She was hemodynamically stable. Her abdomen was benign with appropriate post op tenderness and clean and intact dressings. She felt ready for discharge. She was discharged to home on 07/19/25 in stable condition. She is to follow up in the office in 1-2 weeks. Status at Discharge Functional status at discharge: independent ambulation Time Attestation Discharge Coordination Time (in mins): 25 Quality: Safe Use of Opioids Does Pt have an Active Cancer Diagnosis on the Problem List?: No Quality: Stroke Does the patient have a stroke diagnosis?: No Physical Exam Vital Signs: Vital Signs: Last Vital Signs Temp 98.5 F 07/19/25 07:24 Pulse 52 07/19/25 08:24 Resp 16 07/19/25 08:24 BP 177/84 H 07/19/25 07:24 Pulse Ox 92 07/19/25 07:24 O2 Del Method Room Air 07/19/25 07:24 O2 Flow Rate 1.5 07/18/25 20:42 BMI result Body Mass Index 32.9 Const: General: comfortable, no acute distress and alert Orientation/consciousness: patient oriented x3 Resp: Effort & Inspection: normal respiratory effort GI: Other: dressings clean and intact, abd soft Palpation (GI): Tenderness to palpation present (GI) (mild incisional) and no guarding Skin: General skin exam: no rashes or lesions noted and no jaundice Neuro: General: patient oriented x3 DS: Data Data Completed and Pending Pending studies at discharge: Pending at discharge 07/18/25 19:42 Surgical [PTH] Routine Labs on day of discharge: Laboratory Results - last 24 hr 07/18/25 07/18/25 07/18/25 11:55 12:59 18:01 POC Glucose 107 Lactic Acid 0.8 Blood Type A Positive Antibody Screen NEGATIVE Discharge Plan Discharge Anticipated Discharge Date/Time: 07/19/25 09:51 Patient Disposition: Home, Self-Care Discharge Diagnosis: s/p laparoscopic cholecystectomy Referrals: Libra Barone MD [Primary Care Provider, Family Practice] - 1 Week Dex Silva MD [Physician, General Surgery] - 1 Week Discharge Medications: New docusate sodium [Colace] 100 mg capsule 100 mg PO BID Qty: 30 0RF oxycodone 5 mg tablet 5 mg PO Q4H PRN (Reason: pain (scale score 7-10)) Qty: 26 0RF Rx Instructions: Partial Fill upon patient request. Continued valsartan 80 mg tablet 80 mg PO DAILY metformin 500 mg tablet extended release 24 hr 500 mg PO DAILY bupropion HCl 300 mg tablet extended release 24 hr 300 mg PO DAILY fluticasone furoate [Arnuity Ellipta] 100 mcg/actuation blister with device 1 inh inhalation DAILY metoclopramide HCl [Reglan] 10 mg tablet 10 mg PO TID atenolol 25 mg tablet 25 mg PO DAILY fluticasone propionate 50 mcg/actuation spray,suspension 2 spray intranasal DAILY levothyroxine 75 mcg tablet 75 mcg PO DAILY@0630 sertraline 100 mg tablet 150 mg PO QAM bupropion HCl 150 mg tablet extended release 24 hr 150 mg PO DAILY rosuvastatin 20 mg tablet 20 mg PO BEDTIME dicyclomine 20 mg tablet 20 mg PO TID 30 Days Qty: 90 6RF pantoprazole 40 mg tablet,delayed release (DR/EC) 40 mg PO BID Qty: 60 6RF simethicone 180 mg capsule 180 mg PO QID Qty: 120 6RF hydrocortisone [Proctosol HC] 2.5 % cream with perineal applicator 1 appl IN BID Qty: 30 6RF Rx Instructions: BE SURE TO INCLUDE RECTAL APPICATOR!! Discharge Orders: Discharge Order (Routine); Ordered 07/19/25 Ordered By: Yasmin Tang Diet: Diabetic diet Activity on Discharge: No heavy lifting Stand Alone Forms: Patient Portal Discharge page Print Language: Jamaican Activity Restrictions/Additional Instructions: If the incision area is tender, you may apply an ice pack for short intervals (No more than 20 minutes on, followed by at least 20 minutes off). Do not apply heat. Do not use creams, lotions, or topical antibiotics. Ok to shower. Ok to remove dressings tomorrow. You have steri strips (small white strips) covering your incision- these will fall off ~1 week. No heavy lifting (>10lbs) or strenuous activity! Take Tylenol Extra-strength 1-2 tabs every 6 hours for the first day, then as needed. Oxycodone every 6-8 hours as needed for pain. Colace 100 mg every day as needed for constipation. Follow up in office with Dr. Silva in 1 week. ([phone]) Call Your Doctor If: -Your temperature exceeds 101.5? F -You experience excessive pain or swelling -You have an unexpected reaction to medication -You have excessive bleeding -You experience continued vomiting/nausea -Your incision begins to separate -Your incision shows signs of infection such as increased redness, swelling, excessive pain, drainage (light blood or clear fluid is normal) or heat Care Plan Goals: Return to baseline health and resume normal activities following recovery period. Health Concerns: biliary colic, chronic cholecystitis Plan of Treatment: s/p laparoscopic cholecystectomy Assessment: Doing well post op.
--- NOTE | 2025-07-19 14:19 | MHC.CM.PN ---
Patient dc'd home self care via private transport prior to CM assessment.
== END 2025-07-19 14:23 | disposition home or self-care (01) | DRG 419 ==
LOC: HO.ED 12:10 → HO.EDOVER 12:15 → HO.S3 13:37
PROVIDERS: Physician Assistant Medical; Admitting Provider Surgery; Emergency Provider Emergency Medicine; PCP Family Medicine; Visit Provider Surgery
PROC: 0FT44ZZ Resection of Gallbladder, Percutaneous Endoscopic Approach (ICD-10-PCS; CPT 47562; principal; 2025-07-18 17:50)
DX: K80.44 Calculus of bile duct with chronic cholecystitis without obstruction (principal); E11.9 Type 2 diabetes mellitus without complications; Z79.84 Long term (current) use of oral hypoglycemic drugs; Z79.890 Hormone replacement therapy; Z79.899 Other long term (current) drug therapy
CPT/HCPCS: 36415; 76705; 80048; 80076; 81001; 82947; 83605; 83690; 84484; 85025; 86850; 86900; 86901; 87040; 88304; 93005; 94640; 99285; J0131; J0696; J1885; J2003; J2004; J2405; J2704; J2795; J3010; J7120

== ENCOUNTER → 2025-07-18 08:34 | Outpatient (BNV) | payer OTHER, SELFPAY | PROVIDERS: Admitting Provider Surgery; Emergency Provider Emergency Medicine; PCP Family Medicine; Visit Provider Internal Medicine | DX: R00.1 Bradycardia, unspecified (principal) | CPT/HCPCS: 93010 ==

== ENCOUNTER → 2025-07-18 08:41 | Outpatient (BNV) | payer OTHER, SELFPAY | PROVIDERS: Emergency Provider Emergency Medicine; PCP Family Medicine; Visit Provider Radiology Diagnostic Radiology | DX: K80.20 Calculus of gallbladder without cholecystitis without obstruction (principal) | CPT/HCPCS: 76705 ==

== ENCOUNTER → 2025-07-18 12:02 | Outpatient (BNV) | payer OTHER, SELFPAY | PROVIDERS: Admitting Provider Surgery; Emergency Provider Emergency Medicine; PCP Family Medicine; Visit Provider Surgery | DX: Z90.49 Acquired absence of other specified parts of digestive tract (principal) | CPT/HCPCS: 47562; 99024; 99223 ==

== ENCOUNTER 2025-07-20 17:48 | Emergency (ER) | payer OTHER, SELFPAY ==
--- OUTSIDE RECORDS SUMMARY | 2025-07-20 18:14 | XMS_ITS | Encounter Summary ---
Author Organization [employer] Address [address] [facility] [address] [place] [address] Care Team Providers Care Industrial Manufacturing Technician Name Role Phone Libra Barone MD Primary Care Provider [phone] Malu Medina PharmD Unavailable Tamie Vega OD Unavailable February Unavailable Reason for Visit * Reason Comments Transition Of Care (Tcm) HDF scheduled. Encounter Details Date Type Department Care Team ([facility] st Contact Info) Description 07/20/2025 Patient Outreach [facility] [address] [place], [place] [phone] Libra Barone MD [address] [place] [address] Transition Of Care (Tcm) (HDF scheduled. ) Social History Tobacco Use Types Packs/Day Years [...] as of this encounter Miscellaneous Notes * Significant Event - Dorita Haile - 07/20/2025 10:35 AM EDT 07/20/25 1026 Hospital Discharges and Admission for [facility] Type of Visit Hospital Admission Date of Admission/Visit 07/18/25 Date of Discharge 07/19/25 Facility [facility] Diagnosis S/P laparoscopic cholecystectomy Disposition Discharged Home Follow-Up Actions Follow-Up Needed Provider appointment Follow-Up Outcome Spoke to Caregiver;Booked Appointment Initial Contact Date 07/20/25 YEMI Jackson placed outbound call to patient for HDF outreach. Patient's name and were confirmed. Patient educated on the importance of follow up with provider following inpatient admission. Patient offered an HDF appt. Patient is agreeable to an appointment and has been scheduled for 08/09 at9:00AM with Dr. Barone. Patient provided with education on contacting the Health Center with any questions or concerns prior to the scheduled appointment. Patient educated on extended clinic hours on Mondays and Wednesdays, and Walk-In Urgent Care Located in [facility]. Patient provided with after-hours line for [facility], , which offer night time triage service and option to transfer to national park ranger provider if needed. CC scanned discharge summary into patient's chart. Biggest concern forappointment at this time is no concerns. Appropriate screenings completed in anticipation of appointment. documented in this encounter Plan of Treatment Upcoming Encounters Date Type Department Care Team (Late st Contact Info) Description 07/26/2025 3:00 PM EDT Medication Management [facility] [address] [place] [address] [phone] Malu Medina, PharmD [address] [place] [phone] 08/09/2025 9:00 AM EDT Office Visit [facility] [address] [place] [address] [phone] Libra Barone MD [address] [place] [address] [phone] documented as of this encounter Goals Goal Patient Goal Type Associated Problems Recent Progress Patient-Stated? Author Blood Pressure < 140/90 Blood Pressure 118/76(2024 3:15 PM EDT) No Jass-Karley Nashsa, PharmD Hemoglobin A1c < 7 Result Component 7.2( 8:51 AM EDT) No Malu Mckinnon, PharmD documented as of this encounter Visit Diagnoses Not on filedocumented in this encounter Additional Health Concerns Assessment Noted Time PHQ-9 Depression Total Score: 0 04/20/20 24 3:44 PM EDT documented as of this encounter Care Teams Industrial Manufacturing Technician Relationship Specialty Start Date End Date Libra Barone MD [address] [place] [address] [phone] PCP - General Family Medicine 11/23/18 Malu Medina, PharmD [address] [place] [address] [phone] Pharmacist Internal Medicine 05/09/24 Tamie Vega OD [address] [place] [phone] Optometry 02/16/[address] [place] [address] 3rd [place] [address] Gastroenterology 04/20/25 documented as of this encounter
--- OUTSIDE RECORDS SUMMARY | 2025-07-20 18:14 | XMS_ITS | Encounter Summary ---
Author Organization [employer] Address [address] [facility] [address]t [place] [address] Care Team Providers Care Director Of Hemophilia Name Role Phone Libra Barone MD Primary Care Provider [phone] Malu Medina PharmD Unavailable [phone] Tamie Vega OD Unavailable [phone] February Unavailable Encounter Details Date Type Department Care Team (Latest Contact Info) Description 10/09/2022 Abstract [facility] CONVERSIONS Dental, Provider, DDS Social [...] Description 07/26/2025 3:00 PM EDT Medication Management [facility] [address] [place] [phone] Malu Medina, PharmD [address] [place] [address] 08/09/2025 9:00 AM EDT Office Visit [facility] [address] [place] [phone] Libra Barone MD [address] [place], [place] [phone] documented as of this encounter Visit Diagnoses Not on filedocumented in this encounter Care Teams Director Of Hemophilia Relationship Specialty Start Date End Date Libra Barone MD [address] [place] [address] PCP - General Family Medicine 11/23/18 Malu Medina PharmD [address] [place] [address] Pharmacist Internal Medicine 05/09/24 Tamie Vega OD [address] [place] [phone] Optometry 02/16/25 Ming Tanya [address] [place] [address] 3rd [place] [address] Gastroenterology 04/20/25 documented as of this encounter
--- OUTSIDE RECORDS SUMMARY | 2025-07-20 18:14 | XMS_ITS | Encounter Summary ---
Author Organization [employer] Address [address] [facility] 7t [place] [address] Care Team Providers Care Trestleman Name Role Phone Libra Barone MD Primary Care Provider [phone] Malu Medina PharmD Unavailable Tamie Vega OD Unavailable [phone] February Unavailable Encounter Details Date Type Department Care Team (Latest Contact Info) Description 03/14/2019 Abstract [facility] CONVERSIONS Dental, Provider, DDS Social History [...] Description 07/26/2025 3:00 PM EDT Medication Management [facility] [address] [place] [phone] Malu Medina, PharmD [address] [place] [address] 08/09/2025 9:00 AM EDT Office Visit [facility] [address] [place] [phone] Libra Barone MD [address] [place], [place] [phone] documented as of this encounter Visit Diagnoses Not on filedocumented in this encounter Care Teams Trestleman Relationship Specialty Start Date End Date Libra Barone MD [address] [place] [address] PCP - General Family Medicine 11/23/18 Malu Medina PharmD [address] [place] [address] Pharmacist Internal Medicine 05/09/24 Tamie Vega OD [address] [place] [phone] Optometry 02/16/25 Ming Tanya [address] [place] [address] 3rd [place] [address] Gastroenterology 04/20/25 documented as of this encounter
--- OUTSIDE RECORDS SUMMARY | 2025-07-20 18:14 | XMS_ITS | Clinical Summary ---
Author Organization [employer] Address [address] 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 Enrolled in [facility] DM clinic with Malu Medina, LisaD, [facility] Problem Noted Date Diagnosed Date Oral herpes [...] loss 06/22/2024 Overview (06/22/2024): -Abnormal audiogram at [facility] 05/2024 -ENT referral placed 06/22/24 Assessment & Plan (04/19/2025 2:34 PM EDT): -Abnormal audiogram at [facility] 05/2024 -ENT referral placed 06/22/24 History of postmenopausal bleeding 06/22/2024 Overview (04/19/2025): Seen by Dr. Alonso at [facility] 330/24. -co testing done, recommended ultrasound to measure [...] 1.7-2.7 cm. Recommended to Gyne Onc consult Blood Donor Recruiter Onc referral for a consult placed by Dr. Alonso 09/08/24 Seen by general hardware salesperson 09/21/24 MRI recommended and possible surery in the future. Follow up after MRI. (Blood Donor Recruiter noted does not have location of signature of provider) -Saw READINESS PARAPROFESSIONAL at [facility] 09/21 for intake and a Televist 10/10/24. Per note by Dr. Rosanna Lowe who noted size and growth is stable dating back to 2020, recommending annual pelvic US. Assessment & Plan (04/19/2025 2:45 PM EDT): Seen by Dr. Alonso at [facility] 730/. -co testing done, recommended ultrasound to [...] 1.7-2.7 cm. Recommended to Gyne Onc consult Blood Donor Recruiter Onc referral for a consult placed by Dr. Alonso 09/08/24 Seen by general hardware salesperson 09/21/24 MRI recommended and possible surery in the future. Follow up after MRI. (Blood Donor Recruiter noted does not have location of signature of provider) -Saw READINESS PARAPROFESSIONAL at [facility] 09/21 for intake and a Televist [...] due after 04/19/26 -eye care facilitated by [facility] -dental home is [facility] -health care proxy given and filed 04/19/25 Assessment & Plan (04/19/2025 2:32 PM EDT): -next comprehensive annual evaluation due after 04/19/26 -eye care facilitated by [facility] -dental home is [facility] -health care proxy given and filed 04/19/25 Assessment & Plan (08/19/2023 2:58 PM EDT): -next physical exam due after 05/27/2024. -eye care facilitated by -dental home is Assessment & Plan (05/27/2023 3:20 PM EDT): -next physical exam due after 05/27/2024. -eye care facilitated by -dental home is Abdominal pain 05/27/2023 Overview (07/18/2025): -Hx of IBS -She is followed by GI -Pt is on a PPI and Linzess. -CT scan on 03/2023 was unremarkable. -She will follow up with GI. US in ER 07/17/25 IMPRESSION: Cholelithiasis with possible cholecystitis. There is echogenic material in the neck of the gallbladder that does not shadow. This could represent a polyp, sludge, or small stone. Trace pericholecystic fluid is noted. Gallbladder wall thickness is mostly within normal limits, however there are focal areas of mild thickening. Assessment & Plan (08/19/2023 2:58 PM EDT): [...] knee 05/09/2024 06/22/2024 Strain of lumbar region 05/09/202405/25 Wheezing 05/09/2024 06/22/2024 Bronchitis 05/09/2024 06/22/2024 Toe [...] Encounters Date Type Department Care Team Description 07/20/2025 Patient Outreach [facility] [address] [place] [address] Libra Barone MD Transition Of Care (Tcm) (HDF scheduled. ) 07/20/2025 Telephone [facility] [address] [place] [phone] Libra Barone MD Medication Question 07/18/2025 Orders Only GENERIC EXTERNAL DATA DEPARTMENT Provider, Generic External Data Abdominal pain, unspecified abdominal location (Primary Dx) 07/13/2025 Refill [facility] [address] [place] [address] Malu Medina, PharmD Benign hypertension 06/26/2025 Orders Only [facility] [address] [place] [phone] Libra Barone MD 06/23/2025 Telephone [facility] [address] [place] [phone] Libra Barone MD 05/30/2025 Refill [facility] [address] [place] [phone] Libra Barone MD Mild intermittent asthma without complication; High blood sugar 05/22/2025 Travel 05/18/2025 Orders Only [facility] [address] [place] [phone] Sue Coats MD 05/09/2025 Telephone [facility] [address] [place] [phone] Libra Barone MD Med Refill 05/08/2025 Refill [facility] [address] [address] Libra Barone MD Oral herpes simplex infection 04/28/2025 Refill [facility] [address] [place] [phone] Libra Barone MD Diabetes mellitus without complication ([facility]) 04/28/2025 Refill [facility] [address] [place] [phone] Libra Barone MD Diabetes mellitus without complication ([facility]/HCC) 04/19/2025 2:00 PM EDT Office Visit [facility] [address] [place] [phone] iLbra Barone MD Benign hypertension (Primary Dx); Moderate persistent asthma without complication; Diabetes mellitus without complication (CMS/HCC); Acquired hypothyroidism; Transaminitis; History of postmenopausal bleeding; Depressive disorder; Acute pain of left knee; Candidiasis; Class 2 severe obesity due to excess calories with serious comorbidity and body mass index (BMI) of 36.0 to 36.9 in adult (CMS/HCC); Dietary counseling; Exercise counseling; Other specified health status 04/19/2025 Travel from Last 3 Months Immunizations Immunization Administration [...] Description 07/26/2025 3:00 PM EDT Medication Management [facility] [address] [place] [address] Malu Medina, PharmD [address] [place] [address] 08/09/2025 9:00 AM EDT Office Visit [facility] [address] [place] [address] Libra Barone MD [address] [place] [address] Health Maintenance Due Date Last Done Comments [...] Additional history exists Eye Exam 02/28/2027 02/28/2025, 0406/2025, 02/28/2025, Additional history exists Colonoscopy 12/01/2027 12/01/2022, [...] Hepatitis A Vaccines Aged Out 04/20/2024, 05/27/20 23 No longer eligible based on patient's age [...] Pressure 118/76(2024 3:15 PM EDT) No Piers-Gambl e, Malu, PharmD Hemoglobin A1c < 7 Result Component 7.2( 8:51 AM EDT) No Piers-Gambl e, Malu, PharmD Procedures Procedure Name Priority Date/Time Associated Diagnosis Comments URINALYSIS, COMPLETE, WITH REFLEX TO CULTURE Routine 07/18/2025 10:05 AM EDT URINALYSIS WITH REFLEX MICROSCOPIC Routine 07/18/2025 10:05 AM EDT US ABDOMEN LIMITED Routine 07/18/2025 9: 48 AM EDT HIGH SENSITIVITY TROPONIN I Routine 07/18/2025 7:55 AM EDT LIPASE Routine 07/18/2025 7:55 AM EDT BASIC METABOLIC PANEL Routine 07/18/2025 7:55 AM EDT HEPATIC FUNCTION PANEL Routine 07/18/2025 7:55 AM EDT CBC WITH AUTO DIFFERENTIAL Routine 07/18/2025 7:55 AM EDT US EXTREMITY NON VASCULAR LEFT LIMITED Routine 06/26/2025 1:09 PM EDT BI MAMMOGRAM DIAGNOSTIC TOMOSYNTHESIS BILATERAL Routine 05/18/2025 1:30 PM EDT BI US BREAST LIMITED LEFT Routine 05/18/2025 1:23 PM EDT Mastalgia in female ALBUMIN, RANDOM URINE W/CREATININE Routine 04/18/2025 8:51 [...] Recently Relevant to Health Maintenance Results * (ABNORMAL) Urinalysis, Complete, with Reflex to Culture (07/18/2025 10:05 AM EDT) Color Urine Yellow [facility] Appearance Urine Clear [facility] PH 5.5 5.0 - 9.0 [facility] Glucose Urine UA Negative Negative mg/dL [facility] Urine Blood Trace(A) Negative [facility] Specific [place] - Urine 1.025 1.005 - 1.025 [facility] Urine Protein Negative Neg-Trace mg/dL [facility] Urine Ketones Negative Negative mg/dL [facility] Nitrite Urine Negative Negative [facility] Leukocyte Esterase Urine Negative Negative [facility] RBC Urine 0-2 0 - 2 /HPF [facility] Urine WBC 0-5 0 - 5 /HPF [facility] Urine Squamous Epithelial Cell 0-2 0 - 2 /HPF [facility] Urine Bacteria Trace None Seen [facility] Hyaline Casts, Urine 3-5 0 - 2 /LPF [facility] 07/18/2025 10:0 5 AM EDT 07/18/2025 10:08 AM EDT Narrative [facility] - 07/18/2025 10:16 AM EDT Urine, Clean Catch us Generic External Data Provider LAB URINE ORDERAB LES Final Result Performing Organization Address City/[facility] Co de Phone Number [facility] [address] [place] [phone] * (ABNORMAL) Urinalysis w/reflex microscopic (07/18/2025 10:05 AM EDT) Color Urine Yellow [facility] Appearance Urine Clear [facility] PH 5.5 5.0 - 9.0 [facility] Glucose Urine UA Negative Negative mg/dL [facility] Urine Blood Trace(A) Negative [facility] Specific [place] - Urine 1.025 1.005 - 1.025 [facility] Urine Protein Negative Neg-Trace mg/dL [facility] Urine Ketones Negative Negative mg/dL [facility] Nitrite Urine Negative Negative [facility] Leukocyte Esterase Urine Negative Negative [facility] 07/18/2025 10:0 5 AM EDT 07/18/2025 10:08 AM EDT Narrative [facility] - 07/18/2025 10:14 AM EDT Urine, Clean Catch us Generic External Data Provider LAB URINE ORDERAB LES Final Result Performing Organization Address [facility]/ZIP Co de Phone Number [facility] [address] [place] [phone] * US Abdomen Limited (07/18/2025 9:48 AM EDT) Anatomical Region Laterality Modality Abdomen Ultrasound 07/18/2025 9:48 AM EDT Narrative 07/18/2025 10:24 AM EDT [address] [address] Ultrasound Report Signed Patient: Sridevi Pruitt I MR#: [id number] 2336 : 1960 Acct:[id number] Age/Sex: 65 / F ADM Date: 07/18/25 Loc: HO.ED Attending Dr: Ordering Physician: Kaelyn Shannon Date of Service: 07/18/25 Procedure(s): US abdomen limited Accession Number(s): [id number] cc: Libra Barone MD; Kaelyn Shannon EXAMINATION: US ABDOMEN LIMITED CLINICAL INFORMATION: Right upper quadrant pain. COMPARISON: CT May 02, 2024 and hepatobiliary scan August 21, 2023 TECHNIQUE: Real-time imaging of the right upper quadrant abdominal viscera. FINDINGS: GALLBLADDER: Echogenic shadowing stones are present layering within the gallbladder. There is an echogenic focus without posterior acoustic shadowing in the neck of the gallbladder. Trace pericholecystic fluid is present. Portions of the gallbladder wall appear mildly thickened. However, the clinical technologist reports no gallbladder tenderness with transducer pressure over the gallbladder. COMMON BILE DUCT: Normal in caliber measuring 0.6 cm in diameter. US/US abdomen limited IMPRESSION: Cholelithiasis with possible cholecystitis. There is echogenic material in the neck of the gallbladder that does not shadow. This could represent a polyp, sludge, or small stone. Trace pericholecystic fluid is noted. Gallbladder wall thickness is mostly within normal limits, however there are focal areas of mild thickening. Electronically signed by: Arturo Pimentel MD 07/18/2025 10:22 AM EDT Dictated By: Arturo Pimentel MD Signed By: <Electronically signed by Arturo Pimentel MD in OV> 07/18/25 1022 DD/ TD/TT: 07/18/25 0958 Document Preparer Microfilming: Procedure Note Donotuseinterpreter, Image - 07/18/[address] [address] Ultrasound Report Signed Patient: Sridevi Pruitt [facility]#: [id number] : 9Acct:[id number] Age/Sex: 65 / FADM Date: 07/18/25 Loc: HO.ED Attending Dr: Ordering Physician: Kaelyn Shannon Date of Service: 07/18/25 Procedure(s): US abdomen limited Accession Number(s): [id number] cc: Libra Barone MD; Kaelyn Shannon EXAMINATION: US ABDOMEN LIMITED CLINICAL INFORMATION: Right upper quadrant pain. COMPARISON: CT May 02, 2024 and hepatobiliary scan August 21, 2023 TECHNIQUE: Real-time imaging of the right upper quadrant abdominal viscera. FINDINGS: GALLBLADDER: Echogenic shadowing stones are present layering within the gallbladder. There is an echogenic focus without posterior acoustic shadowing in the neck of the gallbladder. Trace pericholecystic fluid is present. Portions of the gallbladder wall appear mildly thickened. However, the clinical technologist reports no gallbladder tenderness with transducer pressure over the gallbladder. COMMON BILE DUCT: Normal in caliber measuring 0.6 cm in diameter. US/US abdomen limited IMPRESSION: Cholelithiasis with possible cholecystitis. There is echogenic material in the neck of the gallbladder that does not shadow. This could represent a polyp, sludge, or small stone. Trace pericholecystic fluid is noted. Gallbladder wall thickness is mostly within normal limits, however there are focal areas of mild thickening. Electronically signed by: Arturo Pimentel MD 07/18/2025 10:22 AM EDT Dictated By: Arturo Pimentel MD Signed By: <Electronically signed by Arturo Pimentel MD in OV> 07/18/25 1022 DD/ 0948 TD/TT: 07/18/25 0958 Document Preparer Microfilming: us [facility] External Provider IMG US PROCEDURES Final Result * High Sensitivity Troponin I (07/18/2025 7:55 AM EDT) TROPONIN I HIGH SENSITIVITY <2.7 <3.5 - 17.0 ng/L [facility] Comment:The Jacinto high sens itivity Troponin-I results should beused in conjunction with other diagnostic information suchas ECG, clinical observations and information, and patientsymptoms to aid in the diagnosis of NE. 07/18/2025 7:55 AM EDT 07/18/2025 8:42 AM EDT us Generic External Data Provider LAB BLOOD ORDERAB LES Final Result [facility] [address] [place] [phone] * CBC auto differential (07/18/2025 7:55 AM EDT) White Blood Count 8.4 4.8 - 10.8 X10*3/uL [facility] Red Blood Count 4.32 4.20 - 5.50 X10*6/uL [facility] Hemoglobin 12.8 12.0 - 16.0 g/dl [facility] Hematocrit 38.3 37.0 - 47.0 % [facility] Mean Corpuscular Volume 88.7 80.0 - 98.0 fL [facility] Mean Corpuscular Hemoglobin 29.6 27.0 - 33.0 pg [facility] Mean Corpuscular HGB Conc 33.4 31.0 - 35.0 g/dl [facility] Red Cell Distribution Width 14.9 11.0 - 16.0 % [facility] Platelet Count 244 160 - 400 X10*3/uL [facility] Mean Platelet Volume 10.6 9.4 - 12.3 fL [facility] Neutrophils Percent Auto 54.2 45 - 73 % [facility] Imm Gran Pct Auto 0.4 0.0 - 0.4 % [facility] Lymphocytes Percent Auto 35.4 20 - 40 % [facility] Monocytes Percent Auto 6.7 2 - 11 % [facility] Eosinophils Percent Auto 2.8 0 - 4 % [facility] Basophils Percent Auto 0.5 0 - 2 % [facility] NRBC Pct Auto 0.0 0.0 - 0.2 /100WBC [facility] Neutrophils Absolute Auto 4.5 2.0 - 8.3 x10*3/uL [facility] Imm Gran Abs Auto 0.03 0.00 - 0.03 X10*3/uL [facility] Lymphocytes Absolute Auto 3.0 1.2 - 4.9 X10*3/uL [facility] Monocytes Absolute Auto 0.6 0.1 - 1.2 X10*3/uL [facility] Eosinophils Absolute Auto 0.2 0.0 - 0.4 X10*3/uL [facility] Basophils Absolute Auto 0.0 0.0 - 0.2 X10*3/uL [facility] NRBC Abs Auto 0.000 0.0 - 0.012 X10*3/uL [facility] 07/18/2025 7:55 AM EDT 07/18/2025 7:59 AM EDT Generic External Data Provider LAB BLOOD ORDERAB LES Final Result Performing Organization Address [facility]/ZIP Co de Phone Number [facility] [address] [place] [phone] * Lipase (07/18/2025 7:55 AM EDT) [facility] Lipase 33 8 - 78 U/L [facility] 07/18/2025 7:55 AM EDT 07/18/2025 7:59 AM EDT Generic External Data Provider LAB BLOOD ORDERAB LES Final Result Performing Organization Address [facility]/ZIP Co de Phone Number [facility] [address] [place] [phone] * (ABNORMAL) Hepatic Function Panel (07/18/2025 7:55 AM EDT) Bilirubin, Total 0.3 0.0 - 1.0 mg/dL [facility] Bilirubin, Direct 0.2 0.0 - 0.5 mg/dL [facility] Aspartate Amino Transferase 20 5 - 31 U/L [facility] Alanine Aminotransferase 12 0 - 31 U/L [facility] Total Protein 6.1(L) 6.5 - 8.0 g/dL [facility] Albumin Level 3.8 3.5 - 5.0 g/dL [facility] Alkaline Phosphatase 82 39 - 117 U/L [facility] 07/18/2025 7:55 AM EDT 07/18/2025 7:59 AM EDT us Generic External Data Provider LAB BLOOD ORDERAB LES Final Result [facility] [address] [place] [phone] * (ABNORMAL) Basic Metabolic Panel (07/18/2025 7:55 AM EDT) Sodium 138 135 - 145 mmol/L [facility] Potassium 3.9 3.3 - 5.1 mmol/L [facility] Chloride 105 96 - 108 mmol/L [facility] Carbon Dioxide 26 22 - 29 mmol/L [facility] Anion Gap 11(L) 12 - 20 [facility] Urea Nitrogen (BUN) 16 9 - 16 mg/dL [facility] Creatinine, Serum 0.72 0.5 - 1.4 mg/dL [facility] Creatinine Clr Calc Pharmacy 79.0 [facility] Comment:Provided height and weight: 160.02 cm,84.2 kg.eGFR (calculated from the MDRD study equation) and eCrCl(calculated from the Cockcroft-Gault equation) are based ondifferent parameters and may not yield comparable results.If eCrCl result is absurd, please check patient'sheight/weight. Estimated Glomerular Filt Rate >60 [facility] Comment:Chronic Kidney Disea se: Estimated GFR < 60 mL/min/1.83e4Ilyzso Kidney Disease: Estimated GFR < 15 mL/min/1.73m2 Glucose 202(H) 60 - 115 mg/dL [facility] Calcium 8.9 8.4 - 10.2 mg/dL [facility] 07/18/2025 7:55 AM EDT 07/18/2025 7:59 AM EDT us Generic External Data Provider LAB BLOOD ORDERAB LES Final Result Performing Organization Address City/State/[facility] Co de Phone Number [facility] [address] [place] [phone] * US Extremity Non Vascular Left Limited (06/26/2025 1:09 PM EDT) Anatomical Region Laterality Modality Ultrasound 06/26/2025 1:09 PM EDT Narrative 06/26/2025 1:30 PM EDT [address] [address] Ultrasound Report Signed Patient: Sridevi Pruitt I MR#: [id number] 2336 : 1960 Acct:[id number] Age/Sex: 65 / F ADM Date: 06/26/25 Loc: HO.US Attending Dr: Libra Barone MD Ordering Physician: Libra Barone MD Date of Service: 06/26/25 Procedure(s): US Extremity Nonvas Limited LT Accession Number(s): [id number] cc: Libra Barone MD Exam:US Extremity Nonvas [...] Arturo Pimentel MD 06/26/2025 01:27 PM EDT Dictated By: Arturo Pimentel MD Signed By: <Electronically signed by Arturo Pimentel MD in OV> 06/26/25 1327 DD/ 1309 TD/TT: 06/26/25 1312 Document Preparer Microfilming: Procedure Note Donotuseinterpreter, Image - 06/26/[address] [place] [address] Ultrasound Report Signed Patient: Sridevi Pruitt IMR#: [id number] : 9Acct:[id number] Age/Sex: 65 / FADM Date: 06/26/25 Loc: HO.US Attending Dr: Libra Barone MD Ordering Physician: Libra Barone MD Date of Service: 06/26/25 Procedure(s): US Extremity Nonvas Limited LT Accession Number(s): [id number] cc: Libra Barone MD Exam:US Extremity Nonvas [...] Arturo Pimentel MD 06/26/2025 01:27 PM EDT Dictated By: Arturo Pimentel MD Signed By: <Electronically signed by Arturo Pimentel MD in OV> 06/26/25 1327 DD/ 1309 TD/TT: 06/26/25 1312 Document Preparer Microfilming: us Libra Barone MD IMG US PROCEDURES Final Re sult * BI Mammogram Diagnostic Tomosynthesis Bilateral (05/18/2025 1:30 PM EDT) Anatomical Region Laterality Modality Breast Bilateral Mammography 05/18/2025 1:30 PM EDT Narrative 05/18/2025 2:45 PM EDT [address] [place] [address] Mammography Report Signed Patient: Sridevi Pruitt I MR#: [id number] 2336 : 1960 Acct:[id number] Age/Sex: 64 / F ADM Date: 05/18/25 Loc: HO.MAMMO Attending Dr: Sue Coats MD Ordering Physician: Sue Coats MD Results: 2Be nign Findings Date of Service: 05/18/25 Follow Up: 1 Year From Orig ina Mammogram Procedure(s): MM tomosynthesis diagnostic BI Accession Number(s): [id number] cc: Libra Barone MD; Sue Coats MD [...] clip from previous needle core biopsy. Left: [place] marker in the lower inner left breast [...] 05/18/25 1443 DD/ 1330 TD/TT: 05/18/25 1358 Document Preparer Microfilming: Procedure Note Donotuseinterpreter, Image - 05/18/2025 [facility] [address] [place], [place] [address] Mammography Report Signed Patient: Sridevi Pruitt IMR#: [id number] : 9Acct:[id number] Age/Sex: 64 / FADM Date: 05/18/25 Loc: HO.MAMMO Attending Dr: Sue Coats MD Ordering Physician: Sue Coatsesults: 2Be nign Findings Date of Service: 05/18/25Follow Up: 1 Year From Orig ina Mammogram Procedure(s): MM tomosynthesis diagnostic BI Accession Number(s): [id number] cc: Libra Barone MD; Sue Coats MD [...] clip from previous needle core biopsy. Left: [place] marker in the lower inner left breast [...] Mooney DO Signed By: <Electronically signed by Donan Mooney DO in OV> 05/18/25 1443 DD/ 1330 TD/TT: 05/18/25 1358 Document Preparer Microfilming: us Sue Coats MD IMG BI PROCEDURES Final Result * BI US Breast Limited Left (05/18/2025 1:23 PM EDT) Anatomical Region Laterality Modality Breast Left Ultrasound 05/18/2025 1:23 PM EDT Narrative 05/18/2025 2:45 PM EDT [address] [place] [address] Ultrasound Report Signed Patient: Sridevi Pruitt I MR#: [id number] 2336 : 1960 Acct:[id number] Age/Sex: 64 / F ADM Date: 05/18/25 Loc: HO.MAMMO Attending Dr: Sue Coats MD Ordering Physician: Sue Coats MD Date of Service: 05/18/25 Procedure(s): US breast LT limited mamm only Accession Number(s): [id number] cc: Libra Barone MD; Sue Coats MD [...] clip from previous needle core biopsy. Left: [place] marker in the lower inner left breast [...] 05/18/25 1443 DD/ 1323 TD/TT: 05/18/25 1422 Document Preparer Microfilming: Procedure Note Donotuseinterpreter, Image - 05/18/20[facility] [address] [place] [address] Ultrasound Report Signed Patient: Sridevi Pruitt IMR#: [id number] 9Acct:[id number] Age/Sex: 64 / FADM Date: 05/18/25 Loc: HO.MAMMO Attending Dr: Sue Coats MD Ordering Physician: Sue Coats MD Date of Service: 05/18/25 Procedure(s): US breast LT limited mamm only Accession Number(s): [id number] cc: Libra Barone MD; Sue Coats MD [...] clip from previous needle core biopsy. Left: [place] marker in the lower inner left breast [...] 05/18/25 1443 DD/ 1323 TD/TT: 05/18/25 1422 Document Preparer Microfilming: us Sue Coats MD IMG US PROCEDURES Final Result * Albumin, Random Urine W/Creatinine (04/18/2025 8:51 AM EDT) Creatinine, Urine 214.51 mg/dL [facility] Microalbumin Urine 16.0 mg/L [facility] Microalbum Creatinine Ratio Ur 7.4 <30 ug/mg cr [facility] Comment:Albumin/Creatinine R atio Reference Ranges: Normal: < 30 ug/mg creatinine Microalbuminuria: 30 - 300 ug/mg creatinineClinical Albuminuria: > 300 ug/mg creatinine Urine 04/18/2025 8:51 AM EDT 04/18/2025 11:06 AM EDT Libra Barone MD LAB URINE ORDERABLES Final Result Performing Organization Address [facility] Co de Phone Number [facility] [address] [place] [phone] * (ABNORMAL) Hemoglobin A1c (04/18/2025 8:51 AM EDT) Hemoglobin A1c 7.2(H) <6.0 % [facility] Comment:Hemoglobin A1C Refer ence Range Adults: 4.8 - 6.0 % Non diabetic: < 6.0 % Goal: < 7.0 %Additional Action Suggested: > 8.0 %Note: Hemoglobin A1c results are invalid for patients with abnormal amounts of HbF. Blood transfusions may impact the HbA1c concentration in the patient sample. Estimated Average Glucose 160 mg/dL [facility] Comment:eAG = Estimated ave rage glucose which is %A1C expressed asaverage glucose, using the formula of the H1Z-IorslpuTfokjtw Glucose study (ADAG), Diabetes Care, Vol.31,#8,Jun. 2007 Blood Venous blood specimen / Unknown 04/18/2025 8:51 AM EDT 04/18/2025 11:06 AM EDT Libra Barone MD LAB BLOOD ORDERABLES Final Result Performing Organization Address [facility]/ZIP Co de Phone Number [facility] [address] [place] [address] [phone] * Lipid Panel, Standard (04/18/2025 8:51 AM EDT) Triglycerides 61 <150 mg/dL [facility] Comment:Desirable Triglyceri de: less than 150 mg/dLBorderline High Triglyceride 150-199 mg/dLHigh Triglyceride: 200-499 mg/dLVery High Triglyceride: greater than or equal to 5OO mg/dL Cholesterol 144 <200 mg/dL [facility] Comment:Desirable Cholestero l: less than 200 mg/dLBorderline High Cholesterol: 200-239 mg/dLHigh Cholesterol: greater than 239 mg/dL LDL Cholesterol Calculated 79 <100 mg/dL [facility] Comment:Desirable LDL: less than 100 mg/dLNear Optimal/Above Optimal LDL: 110- 129 mg/dLBorderline High LDL: 130-159 mg/dLHigh LDL: 160-189 mg/dLVery High LDL: greater than or equal to 190 mg/dL HDL Cholesterol 53 >40 mg/dL [facility] Comment:Desirable HDL: great er than 40 mg/dL Note: This HDL assay may give artificially low results in patients with liver disease. Blood Venous blood specimen / Unknown 04/18/2025 8:51 AM EDT 04/18/2025 11:06 AM EDT us Libra Barone MD LAB BLOOD ORDERABLES Final Result [facility] [address] [place] [phone] * ThinPrep Imaging Pap and HPV mRNA E6/E7 with Reflex to HPV 16,18/45 (06/21/2024 9:52 AM EDT) HPV 16 RNA [facility] HPV 18/45 RNA [facility] HPV nRNA E6/E7 Not Detected Not Detected [facility] Comment:Methodology: Transcr iption-Mediated AmplificationThis assay detects E6/E7 viral messenger RNA (mRNA) from 14high-risk HPV types (16,18,31,33,35,39,45,51,52,56,58,59,66,68).Cervical sources are required for HPV testing.If a vaginal source from a patient who has had atotal hysterectomy with removal of cervix wassubmitted, please contact the testing laboratoryfor alternative testing options.For additional information, please refer [email or web address] Agent/faq/[email or web address](This link if provided for information/educational purposes only.)THIS TEST WAS PERFORMED AT:[employer] [place] [phone] KHAN MD SOURCE: SEE NOTE [facility] Comment:Cervix Report Status: [facility] Clinical Information: SEE NOTE [facility] Comment:ROUTINE LMP: SEE NOTE [facility] Comment:PM Prev. PAP: SEE NOTE [facility] Comment:06/05/22 Prev. BX: SEE NOTE [facility] Comment:NONE GIVEN Statement Of Adequacy: SEE NOTE [facility] Comment:SATISFACTORY FOR GHAZAL LUATION General Categorization: [facility] Interpretation/Result: SEE NOTE [facility] Comment:Cytology Results: Ne gative for intraepitheliallesion or malignancy.Atrophic pattern; predominantly parabasal cells Cytology Comment SEE NOTE [facility] Comment:This Pap test has be en evaluated with computerassisted technology. Bull Wheel Worker: SEE NOTE [facility] Comment:BK,CT(ASCP)CT screen ing location: [address] Review Bull Wheel Worker: [facility] Pathologist [facility] PAP Infection [facility] See Note SEE NOTE [facility] Comment:EXPLANATORY NOTE:The Pap is a screening test for cervical cancer. It isnot a diagnostic test and is subject to false negativeand false positive results. It is most reliable when asatisfactory sample, regularly obtained, is submittedwith relevant clinical findings and history, and whenthe Pap result is evaluated along with historic andcurrent clinical information. 06/21/2024 9:52 AM EDT 06/21/2024 2:35 PM EDT Narrative [facility] - 06/23/2024 12:57 PM EDT SEE SCANNED RESULTS IN EMRWas previous PAP abnormal? YesIf PAP abnormal, please specify: hpv +Clinical Information: RoutineCollection Date: 06/21/24LMP: postmenopausalDate of previous PAP 06/05/22Performed by: : Cervical us Generic External Data Provider LAB PATHOLOGY ORD ERABLES Final Result [facility] [address] [place] [phone] [phone] * Hepatitis Panel, General (07/22/2023 1:58 PM EDT) Hepatitis A IgM Nonreactive Nonreactive [facility] Comment:IgM antibodies to WOLF V not detected; does not exclude earlyacute or recovered HAV infection. ~Hepatitis B Surface Antibody REACTIVE Nonreactive [facility] Comment:REACTIVE: > 11.99 mI U/mL Hepatitis B Core Antibody Nonreactive Nonreactive [facility] Hepatitis C Antibody Nonreactive Nonreactive [facility] Comment:Antibodies to HCV no t detected; does not exclude early acuteHCV infection. Hepatitis B Surface Ag Negative Negative [facility] 07/22/2023 1:58 PM EDT 07/22/2023 1:59 PM EDT [facility] External Provider LAB BLO OD ORDERABLES Final Result Performing Organization Address City/State/[facility] Co de Phone Number [facility] [address] [place] [phone] * Hm Colonoscopy (12/01/2022 12:16 PM EST) Historical Provider HEALTH MAINTENANCE Final Result from Last 3 Months or Most Recently Relevant to Health Maintenance Insurance [facility] NURSING HOME OPTIONS (HMO D-SNP) ENDY ARELLANO [id number] [facility] STANDARD DENTAL [facility] Care Teams Partition Assembly Machine Operator Relationship Specialty Start Date End Date Lizabeth, MD Libra [address] [place] [phone] PCP - General Family Medicine 11/23/18 Malu Medina, LisaD [address] [place] [phone] Pharmacist Internal Medicine 05/09/24 Tamie Vega OD [address] [place] [phone] Optometry 02/16/[address] [place] [place] [address] 3rd [place] [address] Gastroenterology 04/20/25
--- OUTSIDE RECORDS SUMMARY | 2025-07-20 18:14 | XMS_ITS | Encounter Summary ---
Author Organization [employer] Address [address] [facility] 7t [place] [address] Care Team Providers Care Engraver Block Name Role Phone Libra Barone MD Primary Care Provider [phone] Malu Medina PharmD Unavailable [phone] Tamie Vega OD Unavailable [phone] February Unavailable Reason for Visit * Reason Onset Date Comments Appointment Request 01/02/2025 Encounter Details Date Type Department Care Team ([facility] Contact Info) Description 01/02/2025 Telephone [facility] [address] [place], [place] [phone] Libra Barone MD [address] [place], [place] [phone] Appointment Request Social History Tobacco Use Types [...] Description 07/26/2025 3:00 PM EDT Medication Management [facility] [address] [place] [phone] Malu Medina, PharmD [address] [place] [phone] 08/09/2025 9:00 AM EDT Office Visit [facility] [address] [place] [phone] Libra Barone MD [address] [place] [phone] documented as of this encounter Goals Goal Patient Goal Type Associated Problems Recent Progress Patient-Stated? Author Blood Pressure < 140/90 Blood Pressure 118/76(2024 3:15 PM EDT) No Malu Mckinnon PharmD Hemoglobin A1c < 7 Result Component 7.2( 8:51 AM EDT) No Malu Mckinnon PharmD documented as of this encounter Visit Diagnoses Not on filedocumented in this encounter Additional Health Concerns Assessment Noted Time PHQ-9 Depression Total Score: 0 04/20/20 24 3:44 PM EDT documented as of this encounter Care Teams Engraver Block Relationship Specialty Start Date End Date Libra Barone MD [address] [place] [address] PCP - General Family Medicine 11/23/18 Malu Medina PharmD [address] [place] [phone] Pharmacist Internal Medicine 05/09/24 Tamie Vega OD [address] [place] [phone] Optometry 02/16/[address] [place] [address] 3rd [place] [address] Gastroenterology 04/20/25 documented as of this encounter
--- OUTSIDE RECORDS SUMMARY | 2025-07-20 18:14 | XMS_ITS | Encounter Summary ---
Author Organization [employer] Address [address] [facility] 7t [place] [address] Care Team Providers Care Sports Cartoonist Name Role Phone Libra Barone MD Primary Care Provider [phone] Malu Medina PharmD Unavailable Tamie Vega OD Unavailable [phone] February Unavailable Encounter Details Date Type Department Care Team (Latest Contact Info) Description 03/25/2021 Abstract [facility] CONVERSIONS Dental, Provider, DDS Social History Tobacco [...] Description 07/26/2025 3:00 PM EDT Medication Management [facility] [address] [place] [phone] Malu Medina, PharmD [address] [place] [address] 08/09/2025 9:00 AM EDT Office Visit [facility] [address] [place] [phone] Libra Barone MD [address] [place], [place] [phone] documented as of this encounter Visit Diagnoses Not on filedocumented in this encounter Care Teams Sports Cartoonist Relationship Specialty Start Date End Date Libra Barone MD [address] [place] [address] PCP - General Family Medicine 11/23/18 Malu Medina PharmD [address] [place] [address] Pharmacist Internal Medicine 05/09/24 Tamie eVga OD [address] [place] [phone] Optometry 02/16/25 Ming Tanya [address] [place] [address] 3rd [place] [address] Gastroenterology 04/20/25 documented as of this encounter
--- OUTSIDE RECORDS SUMMARY | 2025-07-20 18:14 | XMS_ITS | Encounter Summary ---
Author Organization [employer] Address [address] [facility] 7t [place] [address] Care Team Providers Care Hardwood Faller Name Role Phone Libra Barone MD Primary Care Provider [phone] Malu Medina PharmD Unavailable Tamie Vega OD Unavailable [phone] February Unavailable Reason for Visit * Reason Onset Date Comments Pharmacy [facility] 08/19/2024 Encounter Details Date Type Department Care Team ([facility] Contact Info) Description 08/19/2024 Telephone [facility] [address] [place], [place] [phone] Libra Baorne MD [address] [place], [place] [phone] Pharmacy [facility] Social History Tobacco Use Types [...] Description 07/26/2025 3:00 PM EDT Medication Management [facility] [address] [place] [phone] Malu Medina, PharmD [address] [place] [address] 08/09/2025 9:00 AM EDT Office Visit [facility] [address] [place] [phone] Libra Barone MD [address] [place] [address] documented as of this encounter Goals Goal [...] documented as of this encounter Care Teams Hardwood Faller Relationship Specialty Start Date End Date Libra Barone MD [address] [place] [phone] PCP - General Family Medicine 11/23/18 Malu Medina PharmD [address] [place] [phone] Pharmacist Internal Medicine 05/09/24 Tamie Vega OD [address] [place] [phone] Optometry 02/16/25February [address] [place] [address] 3rd [place] [address] Gastroenterology 04/20/25 documented as of this encounter
--- OUTSIDE RECORDS SUMMARY | 2025-07-20 18:14 | XMS_ITS | Encounter Summary ---
Author Organization [employer] Address [address] [place] [address] Care Team Providers Care Grain Mill Worker Name Role Phone Libra Barone MD Primary Care Provider +- [phone] Malu Medina PharmD Unavailable [phone] Tamie Vega OD Unavailable [phone] February Unavailable Encounter Details Date Type Department Care Team ([facility] Contact Info) Description 07/18/2025 Orders Only GENERIC EXTERNAL DATA DEPARTMENT Provider, Generic External Data Abdominal pain, unspecified abdominal location (Primary Dx) Social History Tobacco Use Types Packs/Day Years [...] 3:00 PM EDT Medication Management [facility] [address] [place] [phone] Malu Medina, PharmD [address] [place] [phone] 08/09/2025 9:00 AM EDT Office Visit [facility] [address] [place] [address] Libra Barone MD [address] [place] [phone] documented as of this encounter Goals Goal Patient Goal Type Associated Problems Recent Progress Patient-Stated? Author Blood Pressure < 140/90 Blood Pressure 118/76(2024 3:15 PM EDT) No Jass-Adelina aguilar, Malu, PharmD Hemoglobin A1c < 7 Result Component 7.2( 8:51 AM EDT) No Jass-Gambl Karley aguilarsa, PharmD documented as of this encounter Procedures Procedure Name Priority Date/Time Associated Diagnosis Comments URINALYSIS, COMPLETE, WITH REFLEX TO CULTURE Routine 07/18/2025 10:05 AM EDT URINALYSIS WITH REFLEX MICROSCOPIC Routine 07/18/2025 10:05 AM EDT US ABDOMEN LIMITED Routine 07/18/2025 9: 48 AM EDT HIGH SENSITIVITY TROPONIN I Routine 07/18/2025 7:55 AM EDT CBC WITH AUTO DIFFERENTIAL Routine 07/18/2025 7:55 AM EDT LIPASE Routine 07/18/2025 7:55 AM EDT HEPATIC FUNCTION PANEL Routine 07/18/2025 7:55 AM EDT BASIC METABOLIC PANEL Routine 07/18/2025 7:55 AM EDT documented in this encounter Results * (ABNORMAL) Urinalysis, Complete, with Reflex to Culture (07/18/2025 10:05 AM EDT) Color Urine Yellow [facility] Appearance Urine Clear [facility] PH 5.5 5.0 - 9.0 [facility] Glucose Urine UA Negative Negative mg/dL [facility] Urine Blood Trace(A) Negative [facility] Specific [place] - Urine 1.025 1.005 - 1.025 [facility] Urine Protein Negative Neg-Trace mg/dL [facility] Urine Ketones Negative Negative mg/dL [facility] Nitrite Urine Negative Negative [facility] Leukocyte Esterase Urine Negative Negative [facility] RBC Urine 0-2 0 - 2 /HPF [facility] Urine WBC 0-5 0 - 5 /HPF [facility] Urine Squamous Epithelial Cell 0-2 0 - 2 /HPF [facility] Urine Bacteria Trace None Seen [facility] Hyaline Casts, Urine 3-5 0 - 2 /LPF [facility] 07/18/2025 10:0 5 AM EDT 07/18/2025 10:08 AM EDT Narrative [facility] - 07/18/2025 10:16 AM EDT Urine, Clean Catch us Generic External Data Provider LAB URINE ORDERAB LES Final Result Performing Organization Address [facility] de Phone Number [facility] [address] [place] [address] [phone] * (ABNORMAL) Urinalysis w/reflex microscopic (07/18/2025 10:05 AM EDT) Color Urine Yellow [facility] Appearance Urine Clear [facility] PH 5.5 5.0 - 9.0 [facility] Glucose Urine UA Negative Negative mg/dL [facility] Urine Blood Trace(A) Negative [facility] Specific [place] - Urine 1.025 1.005 - 1.025 [facility] Urine Protein Negative Neg-Trace mg/dL [facility] Urine Ketones Negative Negative mg/dL [facility] Nitrite Urine Negative Negative [facility] Leukocyte Esterase Urine Negative Negative [facility] 07/18/2025 10:0 5 AM EDT 07/18/2025 10:08 AM EDT Narrative [facility] - 07/18/2025 10:14 AM EDT Urine, Clean Catch us Generic External Data Provider LAB URINE ORDERAB LES Final Result Performing Organization Address [facility] de Phone Number [facility] [address] [place] [address] [phone] * US Abdomen Limited (07/18/2025 9:48 AM EDT) Anatomical Region Laterality Modality Abdomen Ultrasound 07/18/2025 9:48 AM EDT Narrative 07/18/2025 10:24 AM EDT [address] [address] Ultrasound Report Signed Patient: Sridevi Pruitt I MR#: [id number] : 1960 Acct:[id number] Age/Sex: 65 / F ADM Date: 07/18/25 Loc: .ED Attending Dr: Ordering Physician: Kaelyn Shannon Date of Service: 07/18/25 Procedure(s): US abdomen limited Accession Number(s): [id number] cc: Libra Barone MD; Kaelyn Shannon EXAMINATION: [...] gallbladder wall appear mildly thickened. However, the electroencephalograph technologist reports no gallbladder tenderness with transducer [...] 07/18/25 1022 DD/ 0948 TD/TT: 07/18/25 0958 Campground Attendant: Procedure Note Donotuseinterpreter, Image - 07/18/[address] [address] Ultrasound Report Signed Patient: Sridevi Pruitt [facility]#: [id number] : 9Acct:[id number] Age/Sex: 65 / FADM Date: 07/18/25 Loc: .ED Attending Dr: Ordering Physician: Kaelyn Shannon Date of Service: 07/18/25 Procedure(s): US abdomen limited Accession Number(s): [id number] cc: Libra Barone MD; Kaelyn Shannon EXAMINATION: [...] gallbladder wall appear mildly thickened. However, the electroencephalograph technologist reports no gallbladder tenderness with transducer [...] 07/18/25 1022 DD/ 0948 TD/TT: 07/18/25 0958 Campground Attendant: [facility] External Provider IMG US PROCEDURES Final Result * High Sensitivity Troponin I (07/18/2025 7:55 AM EDT) TROPONIN I HIGH SENSITIVITY <2.7 <3.5 - 17.0 ng/L [facility] Comment:The Jacinto high sens itivity Troponin-I results should beused in conjunction with other diagnostic information suchas ECG, clinical observations and information, and patientsymptoms to aid in the diagnosis of PR. 07/18/2025 7:55 AM EDT 07/18/2025 8:42 AM EDT Generic External Data Provider LAB BLOOD ORDERAB LES Final Result [facility] [address] [place] [address] [phone] * Lipase (07/18/2025 7:55 AM EDT) Lipase 33 8 - 78 U/L [facility] 07/18/2025 7:55 AM EDT 07/18/2025 7:59 AM EDT us Generic External Data Provider LAB BLOOD ORDERAB LES Final Result Performing Organization Address [facility]/ZIP Co de Phone Number [facility] [address] [place] [address] [phone] * (ABNORMAL) Basic Metabolic Panel (07/18/2025 7:55 AM EDT) Pathologist [facility] Sodium 138 135 - 145 mmol/L [facility] Potassium 3.9 3.3 - 5.1 mmol/L [facility] Chloride 105 96 - 108 mmol/L [facility] Carbon Dioxide 26 22 - 29 mmol/L [facility] Anion Gap 11(L) 12 - 20 [facility] Urea Nitrogen (BUN) 16 9 - 16 mg/dL [facility] Creatinine, Serum 0.72 0.5 - 1.4 mg/dL [facility] Creatinine Clr Calc Pharmacy 79.0 [facility] Comment:Provided height and weight: 160.02 cm,84.2 kg.eGFR (calculated from the MDRD study equation) and eCrCl(calculated from the Cockcroft-Gault equation) are based ondifferent parameters and may not yield comparable results.If eCrCl result is absurd, please check patient'sheight/weight. Estimated Glomerular Filt Rate >60 [facility] Comment:Chronic Kidney Disea se: Estimated GFR < 60 mL/min/1.02l6Fwzmym Kidney Disease: Estimated GFR < 15 mL/min/1.73m2 Glucose 202(H) 60 - 115 mg/dL [facility] Calcium 8.9 8.4 - 10.2 mg/dL [facility] 07/18/2025 7:55 AM EDT 07/18/2025 7:59 AM EDT Generic External Data Provider LAB BLOOD ORDERAB LES Final Result Performing Organization Address [facility] Co de Phone Number [facility] [address] [place] [address] [phone] * (ABNORMAL) Hepatic Function Panel (07/18/2025 7:55 AM EDT) Bilirubin, Total 0.3 0.0 - 1.0 mg/dL [facility] Bilirubin, Direct 0.2 0.0 - 0.5 mg/dL [facility] Aspartate Amino Transferase 20 5 - 31 U/L [facility] Alanine Aminotransferase 12 0 - 31 U/L [facility] Total Protein 6.1(L) 6.5 - 8.0 g/dL [facility] Albumin Level 3.8 3.5 - 5.0 g/dL [facility] Alkaline Phosphatase 82 39 - 117 U/L [facility] 07/18/2025 7:55 AM EDT 07/18/2025 7:59 AM EDT us Generic External Data Provider LAB BLOOD ORDERAB LES Final Result Performing Organization Address [facility] Co de Phone Number [facility] [address] [place] [address] [phone] * CBC auto differential (07/18/2025 7:55 AM EDT) White Blood Count 8.4 4.8 - 10.8 X10*3/uL [facility] Red Blood Count 4.32 4.20 - 5.50 X10*6/uL [facility] Hemoglobin 12.8 12.0 - 16.0 g/dl [facility] Hematocrit 38.3 37.0 - 47.0 % [facility] Mean Corpuscular Volume 88.7 80.0 - 98.0 fL [facility] Mean Corpuscular Hemoglobin 29.6 27.0 - 33.0 pg [facility] Mean Corpuscular HGB Conc 33.4 31.0 - 35.0 g/dl [facility] Red Cell Distribution Width 14.9 11.0 - 16.0 % [facility] Platelet Count 244 160 - 400 X10*3/uL [facility] Mean Platelet Volume 10.6 9.4 - 12.3 fL [facility] Neutrophils Percent Auto 54.2 45 - 73 % [facility] Imm Gran Pct Auto 0.4 0.0 - 0.4 % [facility] Lymphocytes Percent Auto 35.4 20 - 40 % [facility] Monocytes Percent Auto 6.7 2 - 11 % [facility] Eosinophils Percent Auto 2.8 0 - 4 % [facility] Basophils Percent Auto 0.5 0 - 2 % [facility] NRBC Pct Auto 0.0 0.0 - 0.2 /100WBC [facility] Neutrophils Absolute Auto 4.5 2.0 - 8.3 x10*3/uL [facility] Imm Gran Abs Auto 0.03 0.00 - 0.03 X10*3/uL [facility] Lymphocytes Absolute Auto 3.0 1.2 - 4.9 X10*3/uL [facility] Monocytes Absolute Auto 0.6 0.1 - 1.2 X10*3/uL [facility] Eosinophils Absolute Auto 0.2 0.0 - 0.4 X10*3/uL [facility] Basophils Absolute Auto 0.0 0.0 - 0.2 X10*3/uL [facility] NRBC Abs Auto 0.000 0.0 - 0.012 X10*3/uL [facility] 07/18/2025 7:55 AM EDT 07/18/2025 7:59 AM EDT us Generic External Data Provider LAB BLOOD ORDERAB LES Final Result [facility] [address] [place] [address] [phone] documented in this encounter Visit Diagnoses Diagnosis Abdominal pain, unspecified abdominal location- Primary documented in this encounter Additional Health Concerns Assessment Noted Time PHQ-9 Depression Total Score: 0 04/20/20 24 3:44 PM EDT documented as of this encounter Care Teams Grain Mill Worker Relationship Specialty Start Date End Date Libra Barone MD [address] [place] [address] PCP - General Family Medicine 11/23/18 Malu Medina, LisaD [address] [place] [address] Pharmacist Internal Medicine 05/09/24 Tamie Vega OD [address] [place] [phone] Optometry 02/16/25February [address]rd [place] [address] Gastroenterology 04/20/25 documented as of this encounter
--- OUTSIDE RECORDS SUMMARY | 2025-07-20 18:14 | XMS_ITS | Encounter Summary ---
Author Organization [employer] Address [address] [facility] 7t [place] [address] Care Team Providers Care Office Mail Clerk Name Role Phone Libra Barone MD Primary Care Provider [phone]- [phone] Malu Medina PharmD Unavailable Tamie Vega OD Unavailable February Unavailable Reason for Visit * Reason Onset Date Comments Med Refill 05/09/2025 Encounter Details Date Type Department Care Team ([facility] Contact Info) Description 05/09/2025 Telephone [facility] [address] [place], [place] [phone] Libra Barone MD [address] [place], [place] [phone] Med Refill Social History Tobacco Use Types [...] 05/09/2025 2:07 PM EDT Medication sent to [facility] on 01/30/25 #90 with 3 refills. * Telephone Encounter - Celestino Ortega - 05/09/2025 1:56 PM EDT TC from pt requesting medication refill. Medications needing refill : levothyroxine (Synthroid, Levoxyl) 75 MCG tablet To be sent to: [facility] - [place], [place] - [address] [facility] documented in this encounter Plan of Treatment Upcoming Encounters Date Type Department Care Team (Late st Contact Info) Description 07/26/2025 3:00 PM EDT Medication Management [facility] [address] [place] [address] Malu Medina, PharmD [address] [place] [address] 08/09/2025 9:00 AM EDT Office Visit [facility] [address] [place] [address] Libra Barone MD [address] [place] [address] documented as of this encounter Goals Goal [...] documented as of this encounter Care Teams Office Mail Clerk Relationship Specialty Start Date End Date Libra Barone MD [address] [place] [address] PCP - General Family Medicine 11/23/18 Malu Medina, LisaD [address] [place] [address] Pharmacist Internal Medicine 05/09/24 Tamie Vega OD [address] [place] [address] Optometry 02/16/25 Ming Tanya [address] [place] [address] 3rd [place] [address] Gastroenterology 04/20/25 documented as of this encounter
--- OUTSIDE RECORDS SUMMARY | 2025-07-20 18:14 | XMS_ITS | Encounter Summary ---
Author Organization [employer] Address [address] [facility] 7t [place] [address] Care Team Providers Care Site Supervisor Name Role Phone Libra Barone MD Primary Care Provider +1- [phone] Malu Medina PharmD Unavailable Tamie Vega OD Unavailable February Unavailable Reason for Visit * Reason Onset Date Comments Medication Question 07/20/2025 Encounter Details Date Type Department Care Team ([facility] Contact Info) Description 07/20/2025 Telephone [facility] [address] [place], [place] [phone] Libra Barone MD [address] [place], [place] [phone] Medication Question Social History Tobacco Use Types Packs/Day Years [...] encounter Miscellaneous Notes * Telephone Encounter - Martin Cosme - 07/20/2025 8:39 AM EDT Tc from pt requesting a call back in regards to pharmacy refusing to give pt their med box due to amedication that the pt cannot take. Pt was recently in a surgery where they removed her gallbladder. Pt wants to know which medication she cannot take. Contact pt at [phone] documented in this encounter Plan of Treatment Upcoming Encounters Date Type Department Care Team (Late st Contact Info) Description 07/26/2025 3:00 PM EDT Medication Management [facility] [address] [place] [phone] Malu Medina, PharmD [address] [place] [address] 08/09/2025 9:00 AM EDT Office Visit [facility] [address] [place] [phone] Libra Barone MD [address] [place] [address] documented as of this encounter Goals Goal [...] documented as of this encounter Care Teams Site Supervisor Relationship Specialty Start Date End Date Libra Barone MD [address] [place] [phone] PCP - General Family Medicine 11/23/18 Malu Medina PharmD [address] [place] [address] Pharmacist Internal Medicine 05/09/24 Tamie Vega OD [address] [place] [phone] Optometry 02/16/25 Ming Tanya [address] [place] [address] [address] [place] [address] Gastroenterology 04/20/25 documented as of this encounter
--- OUTSIDE RECORDS SUMMARY | 2025-07-20 18:14 | XMS_ITS | Encounter Summary ---
Author Organization [employer] Address [address] [facility] 7t [place] [address] Care Team Providers Care Center Maker Hand Name Role Phone Libra Barone MD Primary Care Provider [phone]- [phone] Malu Medina PharmD Unavailable Tamie Vega OD Unavailable [phone] February Unavailable Reason for Visit * Reason Onset Date Comments Appointment Request 08/22/2024 Encounter Details Date Type Department Care Team ([facility] Contact Info) Description 08/22/2024 Telephone [facility] [address] [place], [place] [phone] Libra Barone MD [address] [place], [place] [phone] Appointment Request Social History Tobacco Use Types [...] Description 07/26/2025 3:00 PM EDT Medication Management [facility] [address] [place] [phone] Malu Medina, PharmD [address] [place] [address] 08/09/2025 9:00 AM EDT Office Visit [facility] [address] [place] [phone] Libra Barone MD [address] [place] [phone] documented as of this encounter Goals Goal Patient Goal Type Associated Problems Recent Progress Patient-Stated? Author Blood Pressure < 140/90 Blood Pressure 118/76(2024 3:15 PM EDT) No Malu Mckinnon PharmD Hemoglobin A1c < 7 Result Component 7.2( 5 8:51 AM EDT) No Malu Mckinnon PharmD documented as of this encounter Visit Diagnoses Not on filedocumented in this encounter Additional Health Concerns Assessment Noted Time PHQ-9 Depression Total Score: 0 04/20/20 24 3:44 PM EDT documented as of this encounter Care Teams Center Maker Hand Relationship Specialty Start Date End Date Libra Barone MD [address] [place] [phone] PCP - General Family Medicine 11/23/18 Malu Medina PharmD [address] [place] [address] Pharmacist Internal Medicine 05/09/24 Tamie Vega OD [address] [place] [phone] Optometry 02/16/25February [address] [place] [address] [address] [place] [address] Gastroenterology 04/20/25 documented as of this encounter
== END 2025-07-20 18:10 | disposition left against medical advice (07) ==
PROVIDERS: Emergency Provider Emergency Medicine
DX: G89.18 Other acute postprocedural pain (principal); Z53.21 Procedure and treatment not carried out due to patient leaving prior to being seen by health care provider

== ENCOUNTER 2025-07-21 19:29 | Inpatient (IN) | payer OTHER, SELFPAY ==
--- NOTE | ~2025-07-21 | XR_ITS ---
CLINICAL HISTORY: pain Radiograph of the abdomen 1 view Comparison: None provided Findings: Number of film(s): 2. No abnormal bowel dilatation. Large amount of formed stool in the colon. Multiple clips in the right upper quadrant. No radiopaque renal or ureteral calculus. No acute osseous abnormality. No basilar consolidation. Impression: 1. Nonspecific and nonobstructive bowel gas pattern. 2. Large colonic stool burden. This document has been electronically signed by: Sima Antunez DO on 07/21/2025 20:11:57
--- NOTE | ~2025-07-21 | US_ITS ---
CLINICAL HISTORY: RUQ pain. s p lap rita. New transaminitis US abdomen limited Comparison: CT/REG/SR - CT ABDOMEN PELVIS W IV CON - 07/21/25 22:07 EDT Findings: Limited visualization of the pancreas due to bowel gas. The partially visualized inferior vena cava is unremarkable. The liver is normal in size and echotexture. There is mild intrahepatic bile duct dilatation. The common duct is 7-12 mm in diameter. Status post cholecystectomy. No fluid collection seen in the gallbladder fossa. The main portal vein is antegrade. The right kidney is 10.4 cm in length. No ascites. IMPRESSION: Status post cholecystectomy. No fluid collection seen in the gallbladder fossa. Postsurgical dilation of the common bile duct up to 12 mm. No sonographic evidence of common bile duct stones. This document has been electronically signed by: Chris Alcazar MD on 07/21/2025 23:46:34
--- NOTE | ~2025-07-21 | CT_ITS ---
CLINICAL HISTORY: upper abd pain, post op lap rita, transaminitis CT abdomen and pelvis with contrast Comparison: CR - XR KUB - 07/21/25 19:50 EDT US/AR/SR - US ABDOMEN LIMITED - 07/18/25 09:47 EDT Findings: The lung bases are clear. Status post interval cholecystectomy with postsurgical intrahepatic and extrahepatic biliary tree dilation with the common bile duct measuring 1.2 cm. No radiopaque biliary tree stones seen. Solid organs unremarkable. Portal and mesenteric veins are patent. Diverticulosis without evidence of diverticulitis. No bowel obstruction, pneumoperitoneum, or pneumatosis. Uterine lipoma. Bilateral adnexae unremarkable. Urinary bladder underdistended, limiting evaluation. Normal appendix. Postsurgical midline abdominal change. The bones are intact. IMPRESSION: Status post interval cholecystectomy with postsurgical intrahepatic and extrahepatic biliary tree dilation with common bile duct measuring 1.2 cm. No radiopaque biliary tree stones. Portal and mesenteric veins are patent. This document has been electronically signed by: Chris Alcazar MD on 07/21/2025 23:28:41
--- NOTE | ~2025-07-21 | MR_ITS ---
CLINICAL HISTORY: elvated lfts --- Additional Notes or Special Instructions: pt 4 days sp lap rita MRCP without gadolinium Comparison: US - US ABDOMEN LIMITED - 07/21/25 22:[address]/REG/SR - CT ABDOMEN PELVIS W IV CON - 07/21/25 22:07 EDT Findings: The patient is status post cholecystectomy. Minor postoperative changes are noted. There is mild intrahepatic biliary ductal dilatation. There is dilatation of the common hepatic duct measuring up to 1.1 cm in diameter. The common bile duct is normal in caliber. An obstructing calculus or mass is not identified. Unremarkable solid organs. Visualized bowel is unremarkable. The bones and soft tissues demonstrate no acute abnormalities. IMPRESSION: Status post cholecystectomy. Mild intrahepatic biliary ductal dilatation and mild dilatation of the common hepatic duct. No obstructing calculus or mass is demonstrated. This document has been electronically signed by: Cristobal Saucedo MD on 07/22/2025 10:17:43
--- NOTE | 2025-07-21 19:33 | ED.GENADULT ---
HPI - General Adult General Chief complaint: Abdominal Pain Stated complaint: incision pain - gall bladder removal 07/18/25 Time Seen by Provider: 07/21/25 20:08 History of Present Illness ED Provider: negro HPI narrative: 65-year-old female postop day 3 from uncomplicated laparoscopic cholecystectomy she had acute cholecystitis with gallstones. Patient was well since the procedure but today after meal in the early afternoon she felt significant upper abdominal pain nausea. No vomiting no diarrhea denies fever. Related Data Home Medications ?Medication ?Instructions ?Recorded ?Confirmed levothyroxine 75 mcg tablet 75 mcg PO DAILY@0630 05/23/22 07/21/25 sertraline 100 mg tablet 150 mg PO QAM 05/23/22 07/21/25 atenolol 25 mg tablet 25 mg PO DAILY 03/24/23 07/21/25 fluticasone propionate 50 2 spray intranasal DAILY 03/24/23 07/21/25 mcg/actuation nasal spray,suspension bupropion HCl 150 mg 24 hr tablet, 150 mg PO DAILY 04/20/25 07/21/25 extended release rosuvastatin 20 mg tablet 20 mg PO BEDTIME 04/20/25 07/21/25 bupropion HCl 300 mg 24 hr tablet, 300 mg PO DAILY 07/18/25 07/21/25 extended release fluticasone furoate 100 1 inh inhalation DAILY 07/18/25 07/21/25 mcg/actuation blister powder for inhalation (Arnuity Ellipta) metformin 500 mg tablet,extended 500 mg PO DAILY 07/18/25 07/21/25 release 24 hr metoclopramide HCl 10 mg tablet 10 mg PO TID 07/18/25 07/21/25 (Reglan) valsartan 80 mg tablet 80 mg PO DAILY 07/18/25 07/21/25 Previous Rx's ?Medication ?Instructions ?Recorded dicyclomine 20 mg tablet 20 mg PO TID 30 days #90 tabs 04/20/25 pantoprazole 40 mg tablet,delayed 40 mg PO BID #60 tabs 04/20/25 release simethicone 180 mg capsule 180 mg PO QID #120 caps 04/20/25 hydrocortisone 2.5 % topical cream 1 appl MI BID hemorrhoids #30 grams 06/20/25 with perineal applicator (Proctosol HC) docusate sodium 100 mg capsule 100 mg PO BID #30 caps 07/19/25 (Colace) oxycodone 5 mg tablet 5 mg PO Q4H PRN pain (scale score 07/19/25 7-10) #26 tabs Allergies Allergy/AdvReac Type Severity Reaction Status Date / Time No Known Allergies (No Known Allergy Verified 07/21/25 19:37 Allergies*) [facility] Past Medical History Medical History (Updated 07/22/25 @ 09:00 by Nancy Ford RN) Transaminitis Abdominal bloating Postmenopausal bleeding Unsatisfactory cervical Papanicolaou smear Chronic idiopathic constipation Urinary frequency Diverticulitis Epigastric pain COVID-19 Well woman exam Bacterial vaginosis Uterine mass COVID-19 Well woman exam Smoker Bacterial vaginosis Hypertension Tubular adenoma of colon LLQ abdominal pain 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 Gastritis Surgical History (Updated 07/19/25 @ 08:12 by Yasmin Tang PA-C) Hx of hernia repair History of esophagogastroduodenoscopy (EGD) Hx of colonoscopy Family History Family History Father Family history of prostate problems Colon cancer Mother Tumor Social History Social History Household Members: None Housing: Apartment Do you presently have visiting nurse or other home services: Yes (daughter is CERTIFIED NURSE AIDE) Alcohol intake: never Patient Tobacco Use Status: Current everyday Tobacco user Tobacco use type: Cigarette Cigarettes Per Day: 2 Years Smoked: 20 e-Cigarette/Vaping Use: Never Used Second Hand Smoke Exposure: No Current occupational status: disabled Physical Exam ED Exam Exam: EXAM: Gen: Alert, awake, well appearing, well hydrated. Head: Atraumatic Eyes: Anicteric, Normal conjunctiva. ENT: Moist mucosa, no pallor. ? Neck: Supple. Skin: ?No observable rash or bruising on exposed or examined skin Respiratory: Breathing comfortably, No distress.Clear to auscultation bilaterally, symmetric chest expansion, No wheeze, rales, ronchi. Cardiovascular: Regular rate and rhythm. No murmurs or rub. Well perfused periphery, warm extremities. No edema. ? Abdominal: Moderate right upper quadrant and upper abdominal tenderness. Soft, no objective distension. No palpable masses or obvious organomegaly. ?No guarding, no rebound tenderness or other peritoneal findings. : No flank tenderness. Neuro: Alert. Gross movement of all extremities intact. ? Psych: Calm. Cooperative. MSK: No grossly visible deformity. Vital signs: See flowsheet Vital Signs: Vital Signs - 24 hr 07/21/25 19:36 07/21/25 20:01 07/21/25 22:32 Temperature 97.6 F 97.4 F 97.8 F Pulse Rate 58 56 61 Respiratory Rate 20 16 12 Blood Pressure 180/79 H 149/68 H 103/74 Pulse Oximetry 95 97 94 Oxygen Delivery Method Room Air Room Air Room Air BMI result Body Mass Index 33.8 Course Course Course Narrative: RME, this is a rapid medical exam performed by Pantera Santos please refer to primary provider for complete H&P- 65-year-old female presents for evaluation abdominal pain. She is postop day 3 after a cholecystectomy that was performed here on Thursday. She reports that she has not had a bowel movement since her surgical procedure. Plan for labs, urinalysis and a KUB. She is afebrile Medications Administered Generic Name Dose Route Start Last Admin Trade Name Freq PRN Reason Stop Dose Admin Atenolol 25 mg 07/22/25 09:00 07/23/25 08:28 Atenolol 25 Mg Tablet PO 25 mg DAILY BRIANDA Administration Protocol Bupropion HCl 150 mg 07/22/25 09:00 07/23/25 08:30 Bupropion Hcl Xl 150 Mg Tab.Er.24h PO 150 mg DAILY BRIANDA Administration Bupropion HCl 300 mg 07/22/25 09:00 07/23/25 08:30 Bupropion Hcl Xl 300 Mg Tab.Er.24h PO 300 mg DAILY BRIANDA Administration Docusate Sodium 100 mg 07/22/25 09:00 07/23/25 08:28 Docusate Sodium 100 Mg Capsule PO 100 mg BID BRIANDA Administration Fluticasone Propionate 2 spray 07/22/25 09:00 07/23/25 08:27 Fluticasone Propionate Nasal 16 Gm Holt NOSTRIL-B 2 spray DAILY BRIANDA Administration Fluticasone Propionate 1 puff 07/22/25 08:00 07/23/25 08:20 Fluticasone Propionate 100 Mcg Blst.W.Dev INHALE 1 puff RBID BRIANDA Administration Hydromorphone HCl 1 mg 07/22/25 01:16 07/22/25 06:12 Hydromorphone Hcl 1 Mg/Ml Syringe IVPUSH 1 mg Q3H PRN Administration Pain, Moderate(Pain Scale 4-6) Protocol Hydromorphone HCl 1.5 mg 07/22/25 01:16 07/23/25 03:33 Hydromorphone Hcl 2 Mg/Ml Vial IVPUSH 1.5 mg Q4H PRN Administration Pain, Severe (Pain Scale 7-10) Protocol Lactated Ringer's 1,000 mls @ 125 mls/hr 07/22/25 01:00 07/23/25 08:37 Lr IVCONT 125 mls/hr .Q8H BRIANDA Administration Piperacillin Sod/Tazobactam 50 mls @ 100 mls/hr 07/22/25 03:00 07/23/25 08:35 Sod 3.375 gm/ Sodium Chloride IV 100 mls/hr Q6H BRIANDA Administration Levothyroxine Sodium 75 mcg 07/22/25 06:30 07/23/25 05:48 Levothyroxine Sodium 75 Mcg Tablet PO 75 mcg DAILY@0630 BRIANDA Administration Omeprazole 20 mg 07/22/25 09:00 07/23/25 08:30 Omeprazole 20 Mg Capsule.Dr PO 20 mg BID BRIANDA Administration Ondansetron HCl 4 mg 07/22/25 01:16 07/22/25 19:47 Ondansetron Hcl 4 Mg/2 Ml Vial IVPUSH 4 mg Q6H PRN Administration Nausea and Vomiting Sertraline HCl 150 mg 07/22/25 09:00 07/23/25 08:30 Sertraline Hcl 50 Mg Tablet PO 150 mg DAILY@0900 BRIANDA Administration Sodium Chloride 3 ml 07/22/25 08:00 07/23/25 06:58 0.9 % Sodium Chloride Flush 3 Ml Syringe IVFLUSH Not Given QSHIFT [facility] Valsartan 80 mg 07/22/25 09:00 07/23/25 08:30 Valsartan 80 Mg Tablet PO 80 mg DAILY BRIANDA Administration Protocol Discontinued Medications Generic Name Dose Route Start Last Admin Trade Name Freq PRN Reason Stop Dose Admin Hydromorphone HCl 0.5 mg 07/21/25 20:58 07/21/25 21:20 Hydromorphone Hcl 0.5 Mg/0.5 Ml Syringe IVPUSH 07/21/25 20:59 0.5 mg ONCE ONE Administration Protocol Hydromorphone HCl 1 mg 07/21/25 22:38 07/21/25 22:43 Hydromorphone Hcl 1 Mg/Ml Syringe IVPUSH 07/21/25 22:39 1 mg ONCE ONE Administration Protocol Hydromorphone HCl 1 mg 07/22/25 01:09 07/22/25 02:03 Hydromorphone Hcl 1 Mg/Ml Syringe IVPUSH 07/22/25 01:10 1 mg ONCE STA Administration Protocol Piperacillin Sod/Tazobactam 50 mls @ 100 mls/hr 07/21/25 20:55 07/21/25 21:53 Sod 3.375 gm/ Sodium Chloride IV 07/21/25 21:24 Infused ONCE ONE Infusion Iohexol 85 ml 07/21/25 22:09 07/21/25 22:10 Iohexol 350 Mg/Ml 100 Ml Infus..Btl IV 07/21/25 22:10 85 ml ONCE ONE Administration Ondansetron HCl 4 mg 07/21/25 21:11 07/21/25 21:20 Ondansetron Hcl 4 Mg/2 Ml Vial IVPUSH 07/21/25 21:12 4 mg ONCE ONE Administration Medical Decision Making Medical Decision Making MDM Narrative: Medical Decision Makin-year-old female postop day 3 lap rita uncomplicated went home pain-free. Develop pain after a meal. Has transaminitis and elevated bilirubin. Upper abdominal pain nausea. Dilated CBD. No leukocytosis fever or hemodynamic instability. No sepsis criteria met. Consultation with General surgery and Gastroenterology. Recommended for MRCP, radiology ultrasound and CT abdomen which we will get. Zosyn also recommended. Pain control on antiemetics. Preliminary Favored Differential Diagnosis: CBD obstruction stone versus ductal injury, postop pain, acute hepatitis unlikely, PUD gastritis pancreatitis among additional considered etiologies Testing Interpreted Independently: ?See below for details Radiology or Lab testing Results Reviewed: ?See below for details Consults: ?See below for details Independent Historians/External Chart Reviews: ?See below for details Social Determinants of Health Impacting MDM/Planning: ?See below for details Differential Diagnosis Differential Diagnoses: The differential diagnosis associated with the presentation includes Consult Healthcare Provider GI: Dr. Frias rec MRCP, coags, NPO, MRCP gavin Surg: Dr. Vega: Rec RUQ US, CT, admit Lab Data MDM Lab Attestation statement: I reviewed the patient's lab results. 07/23/25 06:38 07/23/25 06:38 Labs: Lab Results 07/21/25 07/21/25 Range/Units 19:40 21:11 WBC 8.3 (4.8-10.8) X10*3/uL RBC 4.59 (4.20-5.50) X10*6/uL Hgb 13.6 (12.0-16.0) g/dl Hct 40.3 (37.0-47.0) % MCV 87.8 (80.0-98.0) fL MCH 29.6 (27.0-33.0) pg MCHC 33.7 (31.0-35.0) g/dl RDW 14.9 (11.0-16.0) % Plt Count 260 (160-400) X10*3/uL MPV 10.6 (9.4-12.3) fL Immature Gran % (Auto) 0.4 (0.0-0.4) % Neut % (Auto) 74.0 H (45-73) % Lymph % (Auto) 19.1 L (20-40) % Borden % (Auto) 4.8 (2-11) % Eos % (Auto) 1.3 (0-4) % Baso % (Auto) 0.4 (0-2) % Lymph # (Auto) 1.6 (1.2-4.9) X10*3/uL Borden # (Auto) 0.4 (0.1-1.2) X10*3/uL Eos # (Auto) 0.1 (0.0-0.4) X10*3/uL Baso # (Auto) 0.0 (0.0-0.2) X10*3/uL Abs Immat Gran (auto) 0.03 (0.00-0.03) X10*3/uL Absolute Neuts (auto) 6.1 (2.0-8.3) x10*3/uL Absolute Nucleated RBC 0.000 (0.0-0.012) X10*3/uL Nucleated RBC % (auto) 0.0 (0.0-0.2) /100WBC PT 11.9 (10.9-12.4) SEC INR 1.0 (0.9-1.1) APTT 28.8 (26.7-34.1) SEC Sodium 142 (135-145) mmol/L Potassium 4.2 (3.3-5.1) mmol/L Chloride 104 (96-108) mmol/L Carbon Dioxide 27 (22-29) mmol/L Anion Gap 15 (12-20) BUN 12 (9-16) mg/dL Creatinine 0.66 (0.5-1.4) mg/dL Estim Creat Clear Calc 84.2 Estimated GFR > 60 Random Glucose 166 H (60-115) mg/dL Calcium 9.6 D (8.4-10.2) mg/dL Total Bilirubin 2.2 H (0.0-1.0) mg/dL AST 1210 H (5-31) U/L ALT 892 H (0-31) U/L Alkaline Phosphatase 377 H (39-117) U/L Total Protein 7.1 (6.5-8.0) g/dL Albumin 4.2 (3.5-5.0) g/dL Lipase 35 (8-78) U/L Discharge Plan Discharge Clinical Impression: Abdominal cramps Patient Disposition: Admitted As Inpatient Interventions: Admission Worksheet (ED) Last Done: 07/22/25 09:00 Discharge Date/Time: 07/22/25 09:18
[2025-07-21 19:36] VITALS: BP 180/79; PULSE 58; RESP 20; TEMP 36.4; O2SAT 95; BMI 33.8
[2025-07-21 19:45] LABS: Hematocrit 40.3 % (37.0-47.0); Hemoglobin 13.6 g/dl (12.0-16.0); Imm Gran Abs Auto 0.03 X10*3/uL (0.00-0.03); Imm Gran Pct Auto 0.4 % (0.0-0.4); Lymphocytes Absolute Auto 1.6 X10*3/uL (1.2-4.9); MANUAL DIFF FLAG NO; Mean Corpuscular HGB Conc 33.7 g/dl (31.0-35.0); Mean Corpuscular Hemoglobin 29.6 pg (27.0-33.0); Mean Corpuscular Volume 87.8 fL (80.0-98.0); NRBC Abs Auto 0.000 X10*3/uL (0.0-0.012); NRBC Pct Auto 0.0 /100WBC (0.0-0.2); Platelet Count 260 X10*3/uL (160-400); Red Blood Count 4.59 X10*6/uL (4.20-5.50); White Blood Count 8.3 X10*3/uL (4.8-10.8)
[2025-07-21 20:00] LABS: Alanine Aminotransferase 892 U/L (0-31); Albumin Level 4.2 g/dL (3.5-5.0); Alkaline Phosphatase 377 U/L (39-117); Anion Gap 15 (12-20); Aspartate Amino Transferase 1210 U/L (5-31); Blood Urea Nitrogen 12 mg/dL (9-16); Calcium 9.6 mg/dL (8.4-10.2); Carbon Dioxide 27 mmol/L (22-29); Chloride 104 mmol/L (96-108); Creatinine Clr Calc Pharmacy 84.2; Estimated Glomerular Filt Rate > 60; Lipase 35 U/L (8-78); Potassium 4.2 mmol/L (3.3-5.1); Sodium 142 mmol/L (135-145); Total Protein 7.1 g/dL (6.5-8.0)
[2025-07-21 20:01] VITALS: BP 149/68; PULSE 56; RESP 16; TEMP 36.3; O2SAT 97
--- OUTSIDE RECORDS SUMMARY | 2025-07-21 20:26 | XMS_ITS | Encounter Summary ---
Author Organization [employer] Address [address] [facility] 7t [place] [address] Care Team Providers Care Leather Sprayer Name Role Phone Libra Barone MD Primary Care Provider [phone] Malu Medina PharmD Unavailable [phone] Tamie Vega OD Unavailable [phone] February Unavailable Reason for Visit * Reason Onset Date Comments Appointment Request 08/22/2024 Encounter Details Date Type Department Care Team ([facility] Contact Info) Description 08/22/2024 Telephone [facility] [address] [place], [place] [phone] Libra Barone MD [address] [place], [place] [phone] Appointment Request Social History Tobacco Use Types [...] Description 07/26/2025 3:00 PM EDT Medication Management [facility] [address] [place] [phone] Malu Medina, PharmD [address] [place] [phone] 08/09/2025 9:00 AM EDT Office Visit [facility] [address] [place] [address] 425[address] Libra Barone MD [address] [place] [phone] documented as of this encounter Goals Goal [...] documented as of this encounter Care Teams Leather Sprayer Relationship Specialty Start Date End Date Libra Barone MD [address] [place] [address] [phone] PCP - General Family Medicine 11/23/18 Malu Medina PharmD [address] [place] [phone] Pharmacist Internal Medicine 05/09/24 Tamie Vega OD [address] [place] [address] Optometry 02/16/25February [address] [place] [address] [address] [place] [address] Gastroenterology 04/20/25 documented as of this encounter
--- OUTSIDE RECORDS SUMMARY | 2025-07-21 20:26 | XMS_ITS | Encounter Summary ---
Author Organization [employer] Address [address] [facility] 7t [place] [address] Care Team Providers Care Personal Lines Sales Executive Name Role Phone Libra Barone MD Primary Care Provider [phone] Malu Medina PharmD Unavailable Tamie Vega OD Unavailable February Unavailable Reason for Visit * Reason Onset Date Comments Medication Question 07/20/2025 Encounter Details Date Type Department Care Team ([facility] Contact Info) Description 07/20/2025 Telephone [facility]INE [address] [place], [place] [phone] Libra Barone MD [address] [place], [place] [phone] Medication Question Social History Tobacco Use Types [...] encounter Miscellaneous Notes * Telephone Encounter - Shruthi Graves RN - 07/21/2025 2:17 PM EDT Return call placed to the pt with [facility] ocean lifeguard specialist #[id number] to inform and advise that per the [facility] pharmacy the pt needs to bring in any discharge paperwork from Dr. Silva in regards to any medications the pt can't take post gallbladder removal. The pt was ensured that once the pharmacy has reviewedthis documentation the pt can have their new Medbox. Pt stated the understanding of these instructions and had no further questions. * Telephone Encounter - Martin Cosme - 07/20/2025 8:39 AM EDT Tc from pt requesting a call back in regards to pharmacy refusing to give pt their med box due to amedication that the pt cannot take. Pt was recently in a surgery where they removed her gallbladder. Pt wants to know which medication she cannot take. Contact pt at [phone] documented in this encounter Plan of Treatment Upcoming Encounters Date Type Department Care Team (Late st Contact Info) Description 07/26/2025 3:00 PM EDT Medication Management [facility] MEDICINE [address] [place] [phone] Malu Medina PharmD [address] [place] [phone] 08/09/2025 9:00 AM EDT Office Visit [facility] [address] [place] [address] [phone] Libra Barone MD [address] [place] [address] documented as of this encounter Goals Goal [...] documented as of this encounter Care Teams Personal Lines Sales Executive Relationship Specialty Start Date End Date Libra Baroen MD [address] [place] [phone] PCP - General Family Medicine 11/23/18 Malu Medina, PharmD [address] [place] [phone] Pharmacist Internal Medicine 05/09/24 Tamie Vega OD [address] [place] [phone] Optometry 02/16/25 Ming Tanya [address] [place] [address] 3rd [place] [address] Gastroenterology 04/20/25 documented as of this encounter
--- OUTSIDE RECORDS SUMMARY | 2025-07-21 20:26 | XMS_ITS | Encounter Summary ---
Author Organization [employer] Address [address] [facility] 7t [place] [address] Care Team Providers Care Sports Clerk Name Role Phone Libra Barone MD Primary Care Provider [phone] Malu Medina PharmD Unavailable [phone] Tamie Vega OD Unavailable [phone] February Unavailable Reason for Visit * Reason Comments Transition Of Care (Tcm) HDF scheduled. Encounter Details Date Type Department Care Team ([facility] st Contact Info) Description 07/20/2025 Patient Outreach [facility] [address] [place], [place] [phone] Libra Barone MD [address] [place] [address] Transition Of Care (Tcm) (HDF scheduled. ) [...] 07/20/25 1026 Hospital Discharges and Admission for [facility] Type of Visit Hospital Admission Date of Admission/Visit 07/18/25 Date of Discharge 07/19/25 Facility [facility] Diagnosis S/P laparoscopic cholecystectomy Disposition Discharged Home [...] Wednesdays, and Walk-In Urgent Care Located in [facility]. Patient provided with after-hours line for [facility], , which offer night time triage service and option to transfer to talent acquisition program manager provider if needed. CC scanned discharge summary into patient's chart. Biggest concern forappointment at this time is no concerns. Appropriate screenings completed in anticipation of appointment. documented in this encounter Plan of Treatment Upcoming Encounters Date Type Department Care Team (Late st Contact Info) Description 07/26/2025 3:00 PM EDT Medication Management [facility] MED[facility]INE [address] [place] [address] [phone] Malu Medina, PharmD [address] [place] [phone] 08/09/2025 9:00 AM EDT Office Visit [facility] [address] [place] [address] [phone] iLbra Barone MD [address] [place] [address] [phone] documented as of this encounter Goals Goal [...] documented as of this encounter Care Teams Sports Clerk Relationship Specialty Start Date End Date Libra Barone MD [address] [place] [address] [phone] PCP - General Family Medicine 11/23/18 Malu Medina, PharmD [address] [place] [address] [phone] Pharmacist Internal Medicine 05/09/24 Tamie Vega OD [address] [place] [phone] Optometry 02/16/[address] [place] [address] 3rd [place] [address] Gastroenterology 04/20/25 documented as of this encounter
--- OUTSIDE RECORDS SUMMARY | 2025-07-21 20:26 | XMS_ITS | Encounter Summary ---
Author Organization [employer] Address [address] [facility] 7t [place] [address] Care Team Providers Care Chargeback Specialist Name Role Phone Libra Barone MD Primary Care Provider [phone] Malu Medina PharmD Unavailable Tamie Vega OD Unavailable February Unavailable Reason for Visit * Reason Onset Date Comments Appointment Request 01/02/2025 Encounter Details Date Type Department Care Team ([facility] Contact Info) Description 01/02/[address] [facility] MED[facility]INE [address] [place], [place] [phone] Libra Barone MD [address] [place], [place] [phone] Appointment Request Social History Tobacco Use Types [...] Description 07/26/2025 3:00 PM EDT Medication Management [facility] [address] [place] [phone] Malu Medina, PharmD [address] [place] [phone] 08/09/2025 9:00 AM EDT Office Visit [facility] [address] [place] [phone] Libra Barone MD [address] [place] [phone] documented as of this encounter Goals Goal [...] documented as of this encounter Care Teams Chargeback Specialist Relationship Specialty Start Date End Date Libra Barone MD [address] [place] [address] PCP - General Family Medicine 11/23/18 Malu Medina PharmD [address] [place] [address] [phone] Pharmacist Internal Medicine 05/09/24 Tamie Vega OD [address] [place] [address] [phone] Optometry 02/16/[address] [place] [address] 3rd [place] [address] Gastroenterology 04/20/25 documented as of this encounter
--- OUTSIDE RECORDS SUMMARY | 2025-07-21 20:26 | XMS_ITS | Clinical Summary ---
Author Organization [employer] Address [address] [facility] [address] [place] [address] Care Team Providers Care Pre Sales Systems Engineer Name Role Phone Libra Barone MD Primary Care Provider [phone] Malu Medina PharmD Unavailable Tamie Vega OD Unavailable [phone] February Unavailable Allergies Active Allergy Reactions Criticality [...] be different from the original. Enrolled in [facility] DM clinic with Malu Medina, LisaD, [facility] Problem Noted Date Diagnosed Date Oral herpes [...] loss 06/22/2024 Overview (06/22/2024): -Abnormal audiogram at [facility] 05/2024 -ENT referral placed 06/22/24 Assessment & Plan (04/19/2025 2:34 PM EDT): -Abnormal audiogram at [facility] 05/2024 -ENT referral placed 06/22/24 History of postmenopausal bleeding 06/22/2024 Overview (04/19/2025): Seen by Dr. Alonso at [facility] 330/24. -co testing done, recommended ultrasound to [...] 1.7-2.7 cm. Recommended to Gyne Onc consult Ticket Clerk Onc referral for a consult placed by Dr. Alonso 09/08/24 Seen by humidifier maintenance worker 09/21/24 MRI recommended and possible surery in the future. Follow up after MRI. (Ticket Clerk noted does not have location of signature of provider) -Saw CONDENSER SETTER at [facility] 09/21 for intake and a Televist 10/10/24. Per note by Dr. Rosanna Lowe who noted size and growth is stable dating back to 2020, recommending annual pelvic US. Assessment & Plan (04/19/2025 2:45 PM EDT): Seen by Dr. Alonso at [facility] 730/. -co testing done, recommended ultrasound to [...] 1.7-2.7 cm. Recommended to Gyne Onc consult Ticket Clerk Onc referral for a consult placed by Dr. Alonso 09/08/24 Seen by humidifier maintenance worker 09/21/24 MRI recommended and possible surery in the future. Follow up after MRI. (Ticket Clerk noted does not have location of signature of provider) -Saw CONDENSER SETTER at [facility] 09/21 for intake and a Televist [...] due after 04/19/26 -eye care facilitated by [facility] -dental home is [facility] -health care proxy given and filed 04/19/25 Assessment & Plan (04/19/2025 2:32 PM EDT): -next comprehensive annual evaluation due after 04/19/26 -eye care facilitated by [facility] -dental home is [facility] -health care proxy given and filed [...] Encounters Date Type Department Care Team Description 07/21/2025 Orders Only GENERIC EXTERNAL DATA DEPARTMENT Provider, Generic External Data 07/20/2025 Patient Outreach [facility] [address] [place] [address] Libra Barone MD Transition Of Care (Tcm) (HDF scheduled. ) 07/20/2025 Telephone [facility] MED[facility] [address] [place] [address] [phone] Libra Barone MD Medication Question 07/18/2025 Orders Only GENERIC EXTERNAL DATA DEPARTMENT Provider, Generic External Data Abdominal pain, unspecified abdominal location (Primary Dx) 07/13/2025 Refill [facility] [address] [place], [place] [phone] Malu Medina, PharmD Benign hypertension 06/26/2025 Orders Only [facility] [address] [place] [address] [phone] Libra Barone MD 06/23/2025 Telephone [facility] MED[facility]INE [address] [place] [address] [phone] Libra Barone MD 05/30/2025 Refill [facility] WALK-IN CENTER [address] [place] [address] [phone] Libra Barone MD Mild intermittent asthma without complication; High blood sugar 05/22/2025 Travel 05/18/2025 Orders Only [facility] [address] [place] [address] [phone] Sue Coats MD 05/09/2025 Telephone [facility] MED[facility]INE [address] [place] [address] [phone] Libra Barone MD Med Refill 05/08/2025 Refill [facility] [address] [place] [address] [phone] Libra Barone MD Oral herpes simplex infection 04/28/2025 Refill [facility] [address] [place] [address] [phone] Libra Barone MD Diabetes mellitus without complication ([facility]) 04/28/2025 Refill [facility] [address] [place] [address] [phone] Libra Barone MD Diabetes mellitus without complication ([facility]) from Last 3 Months Immunizations Immunization Administration [...] 3:00 PM EDT Medication Management [facility] [address] [place] [address] [phone] Malu Medina, PharmD [address] [place] [phone] 08/09/2025 9:00 AM EDT Office Visit [facility] [address] [place] [address] [phone] Libra Barone MD [address] [place] [address] [phone] Health Maintenance Due Date Last Done Comments CT Colonography 1959 FIT DNA/Cologuard 1960 FIT 1960 FOBT 1960 Sigmoidoscopy 1960 RSV Patients and Patients Aged 60 years or older (1 - Risk 60-74 years 1-dose series) 2019 Depression Screening 04/20/2025 04/20/2024, 04/20/20 Dental Oral Exam 05/10/2025 11/08/2024, , 03/25/2021, [...] 8:51 AM EDT) No Malu Mckinnon PharmD Procedures Procedure Name Priority Date/Time Associated Diagnosis Comments XR KUB AND UPRIGHT 2 VIEWS Routine 07/21/2025 8:11 PM EDT LIPASE Routine 07/21/2025 7:40 PM EDT COMPREHENSIVE METABOLIC PANEL Routine 07/21/2025 7:40 PM EDT CBC WITH AUTO DIFFERENTIAL Routine 07/21/2025 7:40 PM EDT URINALYSIS, COMPLETE, WITH REFLEX TO CULTURE Routine [...] Recently Relevant to Health Maintenance Results * XR KUB and Upright 2 Views (07/21/2025 8:11 PM EDT) Anatomical Region Laterality Modality Radiographic Courtney ging 07/21/2025 8:11 PM EDT Narrative 07/21/2025 8:13 PM EDT [place] [address] XRay Report Signed Patient: Sridevi Pruitt I MR#: [id number] 2336 : 1960 Acct:[id number] Age/Sex: 65 / F ADM Date: 07/21/25 Loc: HO.ED Attending Dr: Ordering Physician: Lester Santos Date of Service: 07/21/25 Procedure(s): XR KUB Accession Number(s): [id number] cc: Libra Barone MD; Lester Santos CLINICAL HISTORY: pain Radiograph of the abdomen 1 view Comparison: None provided Findings: Number of film(s): 2. No abnormal bowel dilatation. Large amount of formed stool in the colon. Multiple clips in the right upper quadrant. No radiopaque renal or ureteral calculus. No acute osseous abnormality. No basilar consolidation. Impression: 1. Nonspecific and nonobstructive bowel gas pattern. 2. Large colonic stool burden. This document has been electronically signed by: Sima Antunez DO on 07/21/2025 20:11:57 Dictated By: Sima Antunez MD Signed By: <Electronically signed by Sima Antunez MD in OV> 07/21/252011 DD/ 10 TD/TT: 07/21/252010 Varnish Mixer: Procedure Note Donotuseinterpreter, Image - 07/21/2025 [place] [address] XRay Report Signed Patient: Sridevi Pruitt IMR#: [id number] : 9Acct:[id number] Age/Sex: 65 / FADM Date: 07/21/25 Loc: .ED Attending Dr: Ordering Physician: Lester Santos Date of Service: 07/21/25 Procedure(s): XR KUB Accession Number(s): [id number] cc: Libra Barone MD; Lester Santos CLINICAL HISTORY: pain Radiograph of the abdomen 1 view Comparison: None provided Findings: Number of film(s): 2. No abnormal bowel dilatation. Large amount of formed stool in the colon. Multiple clips in the right upper quadrant. No radiopaque renal or ureteral calculus. No acute osseous abnormality. No basilar consolidation. Impression: 1. Nonspecific and nonobstructive bowel gas pattern. 2. Large colonic stool burden. This document has been electronically signed by: Sima Antunez DO on 07/21/2025 20:11:57 Dictated By: Sima Antunez MD Signed By: <Electronically signed by Sima Antunez MD in OV> 07/21/252011 DD/ 10 TD/TT: 07/21/252010 Varnish Mixer: [facility] External Provider IMG XR PROCEDURES Final Result * (ABNORMAL) CBC auto differential (07/21/2025 7:40 PM EDT) Only the most recent of2 resultswithin the time period is included. White Blood Count 8.3 4.8 - 10.8 X10*3/uL [facility] Red Blood Count 4.59 4.20 - 5.50 X10*6/uL [facility] Hemoglobin 13.6 12.0 - 16.0 g/dl [facility] Hematocrit 40.3 37.0 - 47.0 % [facility] Mean Corpuscular Volume 87.8 80.0 - 98.0 fL [facility] Mean Corpuscular Hemoglobin 29.6 27.0 - 33.0 pg [facility] Mean Corpuscular HGB Conc 33.7 31.0 - 35.0 g/dl [facility] Red Cell Distribution Width 14.9 11.0 - 16.0 % [facility] Platelet Count 260 160 - 400 X10*3/uL [facility] Mean Platelet Volume 10.6 9.4 - 12.3 fL [facility] Neutrophils Percent Auto 74.0(H) 45 - 73 % [facility] Imm Gran Pct Auto 0.4 0.0 - 0.4 % [facility] Lymphocytes Percent Auto 19.1(L) 20 - 40 % [facility] Monocytes Percent Auto 4.8 2 - 11 % [facility] Eosinophils Percent Auto 1.3 0 - 4 % [facility] Basophils Percent Auto 0.4 0 - 2 % [facility] NRBC Pct Auto 0.0 0.0 - 0.2 /100WBC [facility] Neutrophils Absolute Auto 6.1 2.0 - 8.3 x10*3/uL [facility] Imm Gran Abs Auto 0.03 0.00 - 0.03 X10*3/uL [facility] Lymphocytes Absolute Auto 1.6 1.2 - 4.9 X10*3/uL [facility] Monocytes Absolute Auto 0.4 0.1 - 1.2 X10*3/uL [facility] Eosinophils Absolute Auto 0.1 0.0 - 0.4 X10*3/uL [facility] Basophils Absolute Auto 0.0 0.0 - 0.2 X10*3/uL [facility] NRBC Abs Auto 0.000 0.0 - 0.012 X10*3/uL [facility] 07/21/2025 7:40 PM EDT 07/21/2025 7:43 PM EDT Generic External Data Provider LAB BLOOD ORDERAB LES Final Result Performing Organization Address [facility]/ZIP Co de Phone Number [facility] [address] [place] [phone] * Lipase (07/21/2025 7:40 PM EDT) Only the most recent of2 resultswithin the time period is included. Pathologist [facility] Lipase 35 8 - 78 U/L [facility] 07/21/2025 7:40 PM EDT 07/21/2025 7:43 PM EDT [email or web address] External Data Provider LAB BLOOD ORDERAB LES Final Result Performing Organization Address [facility] de Phone Number [facility] [address] [place] [phone] * (ABNORMAL) Comprehensive Metabolic Panel (07/21/2025 7:40 PM EDT) Sodium 142 135 - 145 mmol/L [facility] Potassium 4.2 3.3 - 5.1 mmol/L [facility] Chloride 104 96 - 108 mmol/L [facility] Carbon Dioxide 27 22 - 29 mmol/L [facility] Anion Gap 15 12 - 20 [facility] Urea Nitrogen (BUN) 12 9 - 16 mg/dL [facility] Creatinine, Serum 0.66 0.5 - 1.4 mg/dL [facility] Creatinine Clr Calc Pharmacy 84.2 [facility] Comment:Provided height and weight: 157.48 cm,83.915 kg.eGFR (calculated from the MDRD study equation) and eCrCl(calculated from the Cockcroft-Gault equation) are based ondifferent parameters and may not yield comparable results.If eCrCl result is absurd, please check patient'sheight/weight. Estimated Glomerular Filt Rate >60 [facility] Comment:Chronic Kidney Disea se: Estimated GFR < 60 mL/min/1.79l5Kxwhhs Kidney Disease: Estimated GFR < 15 mL/min/1.73m2 Glucose 166(H) 60 - 115 mg/dL [facility] Calcium 9.6 8.4 - 10.2 mg/dL [facility] Bilirubin, Total 2.2(H) 0.0 - 1.0 mg/dL [facility] Aspartate Amino Transferase 1,210(H) 5 - 31 U/L [facility] Alanine Aminotransferase 892(H) 0 - 31 U/L [facility] Total Protein 7.1 6.5 - 8.0 g/dL [facility] Albumin Level 4.2 3.5 - 5.0 g/dL [facility] Alkaline Phosphatase 377(H) 39 - 117 U/L [facility] 07/21/2025 7:40 PM EDT 07/21/2025 7:43 PM EDT us Generic External Data Provider LAB BLOOD ORDERAB LES Final Result [facility] [address] [place] [address] [phone] * (ABNORMAL) Urinalysis, Complete, with Reflex to Culture (07/18/2025 10:05 AM EDT) Color Urine Yellow [facility] Appearance Urine Clear [facility] PH 5.5 5.0 - 9.0 [facility] Glucose Urine UA Negative Negative mg/dL [facility] Urine Blood Trace(A) Negative [facility] Specific Meherrin - Urine 1.025 1.005 - 1.025 [facility] Urine Protein Negative Neg-Trace mg/dL [facility] Urine Ketones Negative Negative mg/dL [facility] Nitrite Urine Negative Negative [facility] Leukocyte Esterase Urine Negative Negative [facility] RBC Urine 0-2 0 - 2 /HPF [facility] Urine WBC 0-5 0 - 5 /HPF [facility] Urine Squamous Epithelial Cell 0-2 0 - 2 /HPF [facility] Urine Bacteria Trace None Seen [facility] Hyaline Casts, Urine 3-5 0 - 2 /LPF [facility] 07/18/2025 10:0 5 AM EDT 07/18/2025 10:08 AM EDT [facility] - 07/18/2025 10:16 AM EDT Urine, Clean Catch us Generic External Data Provider LAB URINE ORDERAB LES Final Result Performing Organization Address City/State/[facility] Co de Phone Number [facility] [address] [place] [phone] * (ABNORMAL) Urinalysis w/reflex microscopic (07/18/2025 10:05 AM EDT) Color Urine Yellow [facility] Appearance Urine Clear [facility] PH 5.5 5.0 - 9.0 [facility] Glucose Urine UA Negative Negative mg/dL [facility] Urine Blood Trace(A) Negative [facility] Specific Meherrin - Urine 1.025 1.005 - 1.025 [facility] Urine Protein Negative Neg-Trace mg/dL [facility] Urine Ketones Negative Negative mg/dL [facility] Nitrite Urine Negative Negative [facility] Leukocyte Esterase Urine Negative Negative [facility] 07/18/2025 10:0 5 AM EDT 07/18/2025 10:08 AM EDT Narrative [facility] - 07/18/2025 10:14 AM EDT Urine, Clean Catch us Generic External Data Provider LAB URINE ORDERAB LES Final Result [facility] [address] [place] [address] [phone] * US Abdomen Limited (07/18/2025 9:48 AM EDT) Anatomical Region Laterality Modality Abdomen Ultrasound 07/18/2025 9:48 AM EDT Narrative 07/18/2025 10:24 AM EDT [address] [address] Ultrasound Report Signed Patient: Sridevi Pruitt I MR#: [id number] 2336 : 1960 Acct:[id number] Age/Sex: 65 / F ADM Date: 07/18/25 Loc: HO.ED Attending Dr: Ordering Physician: Kaelyn Shannon Date of Service: 07/18/25 Procedure(s): US abdomen limited Accession Number(s): [id number] cc: Libra Barone MD; Kaelyn Shannon EXAMINATION: [...] gallbladder wall appear mildly thickened. However, the nuclear medicine pet ct technologist reports no gallbladder tenderness with transducer [...] OV> 07/18/25 1022 DD/ TD/TT: 07/18/25 0958 Varnish Mixer: Procedure Note Faheemotshahnazter, Image - 07/18/2025 [place] [address] Ultrasound Report Signed Patient: Sridevi Pruitt IMR#: [id number] 2336 : 9Acct:[id number] Age/Sex: 65 / FADM Date: 07/18/25 Loc: .ED Attending Dr: Ordering Physician: Kaelyn Shannon Date of Service: 07/18/25 Procedure(s): US abdomen limited Accession Number(s): [id number] cc: Libra Barone MD; Kaelyn Shannon EXAMINATION: [...] gallbladder wall appear mildly thickened. However, the nuclear medicine pet ct technologist reports no gallbladder tenderness with transducer [...] 07/18/25 1022 DD/ 0948 TD/TT: 07/18/25 0958 Varnish Mixer: [facility] External Provider IMG US PROCEDURES Final Result * High Sensitivity Troponin I (07/18/2025 7:55 AM EDT) TROPONIN I HIGH SENSITIVITY <2.7 <3.5 - 17.0 ng/L [facility] Comment:The Jacinto high sens itivity Troponin-I results should beused in conjunction with other diagnostic information suchas ECG, clinical observations and information, and patientsymptoms to aid in the diagnosis of IA. 07/18/2025 7:55 AM EDT 07/18/2025 8:42 AM EDT Generic External Data Provider LAB BLOOD ORDERAB LES Final Result Performing Organization Address [facility] Co de Phone Number [facility] [address] [place] [phone] * (ABNORMAL) Hepatic Function Panel (07/18/2025 7:55 AM EDT) Bilirubin, Total 0.3 0.0 - 1.0 mg/dL [facility] Bilirubin, Direct 0.2 0.0 - 0.5 mg/dL [facility] Aspartate Amino Transferase 20 5 - 31 U/L [facility] Alanine Aminotransferase 12 0 - 31 U/L [facility] Total Protein 6.1(L) 6.5 - 8.0 g/dL [facility] Albumin Level 3.8 3.5 - 5.0 g/dL [facility] Alkaline Phosphatase 82 39 - 117 U/L [facility] 07/18/2025 7:55 AM EDT 07/18/2025 7:59 AM EDT Generic External Data Provider LAB BLOOD ORDERAB LES Final Result Performing Organization Address [facility]/ZIP Co de Phone Number [facility] [address] [place] [phone] * (ABNORMAL) Basic Metabolic Panel (07/18/2025 7:55 AM EDT) Sodium 138 135 - 145 mmol/L [facility] Potassium 3.9 3.3 - 5.1 mmol/L [facility] Chloride 105 96 - 108 mmol/L [facility] Carbon Dioxide 26 22 - 29 mmol/L [facility] Anion Gap 11(L) 12 - 20 [facility] Urea Nitrogen (BUN) 16 9 - 16 mg/dL [facility] Creatinine, Serum 0.72 0.5 - 1.4 mg/dL [facility] Creatinine Clr Calc Pharmacy 79.0 [facility] Comment:Provided height and weight: 160.02 cm,84.2 kg.eGFR (calculated from the MDRD study equation) and eCrCl(calculated from the Cockcroft-Gault equation) are based ondifferent parameters and may not yield comparable results.If eCrCl result is absurd, please check patient'sheight/weight. Estimated Glomerular Filt Rate >60 [facility] Comment:Chronic Kidney Disea se: Estimated GFR < 60 mL/min/1.25f5Twgbks Kidney Disease: Estimated GFR < 15 mL/min/1.73m2 Glucose 202(H) 60 - 115 mg/dL [facility] Calcium 8.9 8.4 - 10.2 mg/dL [facility] 07/18/2025 7:55 AM EDT 07/18/2025 7:59 AM EDT us Generic External Data Provider LAB BLOOD ORDERAB LES Final Result [facility] [address] [place] [phone] * US Extremity Non Vascular Left Limited (06/26/2025 1:09 PM EDT) Anatomical Region Laterality Modality Ultrasound 06/26/2025 1:09 PM EDT Narrative 06/26/2025 1:30 PM EDT [address] [address] Ultrasound Report Signed Patient: Sridevi Pruitt I MR#: [id number] 2336 : 1960 Acct:[id number] Age/Sex: 65 / F ADM Date: 06/26/25 Loc: HO.US Attending Dr: Libra Barone MD Ordering Physician: Libra Barone MD Date of Service: 06/26/25 Procedure(s): US Extremity Nonvas Limited LT Accession Number(s): [id number] cc: Libra Barone MD Exam:US Extremity Nonvas [...] 06/26/25 1327 DD/ 1309 TD/TT: 06/26/25 1312 Varnish Mixer: Procedure Note Donotuseinterpreter, Image - 06/26/[address] [address] Ultrasound Report Signed Patient: Sridevi Pruitt IMR#: [id number] 2336 : 1960cct:[id number] Age/Sex: 65 / FADM Date: 06/26/25 Loc: HO.US Attending Dr: Libra Barone MD Ordering Physician: Libra Barone MD Date of Service: 06/26/25 Procedure(s): US Extremity Nonvas Limited LT Accession Number(s): [id number] cc: Libra Barone MD Exam:US Extremity Nonvas [...] 06/26/25 1327 DD/ 1309 TD/TT: 06/26/25 1312 Varnish Mixer: us Libra Barone MD IMG US PROCEDURES Final Re sult * BI Mammogram Diagnostic Tomosynthesis Bilateral (05/18/2025 1:30 PM EDT) Anatomical Region Laterality Modality Breast Bilateral Mammography 05/18/2025 1:30 PM EDT Narrative 05/18/2025 2:45 PM EDT [address] [place] [address] Mammography Report Signed Patient: Sridevi Pruitt I MR#: [id number] 2336 : 1960 Acct:[id number] Age/Sex: 64 / F ADM Date: 05/18/25 Loc: HO.MAMMO Attending Dr: Sue Coats MD Ordering Physician: Sue Coats MD Results: 2Be nign Findings Date of Service: 05/18/25 Follow Up: 1 Year From Orig ina Mammogram Procedure(s): MM tomosynthesis diagnostic BI Accession Number(s): [id number] cc: Libra Barone MD; Sue Coats MD [...] clip from previous needle core biopsy. Left: Raynham marker in the lower inner left breast [...] 05/18/25 1443 DD/ 1330 TD/TT: 05/18/25 1358 Varnish Mixer: Procedure Note Donotuseinterpreter, Image - 05/18/2025 [facility] [address] [place] [address] Mammography Report Signed Patient: Sridevi Pruitt IMR#: [id number] 2336 : 9Acct:[id number] Age/Sex: 64 / FADM Date: 05/18/25 Loc: TEGAN.MAMMO Attending Dr: Sue Coats MD Ordering Physician: Sue Coats MDResults: 2Be nign Findings Date of Service: 05/18/25Follow Up: 1 Year From [facility] Mammogram Procedure(s): MM tomosynthesis diagnostic BI Accession Number(s): [id number] cc: Libra Barone MD; Sue Coats MD [...] clip from previous needle core biopsy. Left: Raynham marker in the lower inner left breast [...] 05/18/25 1443 DD/ 1330 TD/TT: 05/18/25 1358 Varnish Mixer: Sue Coats MD IMG BI PROCEDURES Final Result * BI US Breast Limited Left (05/18/2025 1:23 PM EDT) Anatomical Region Laterality Modality Breast Left Ultrasound 05/18/2025 1:23 PM EDT Narrative 05/18/2025 2:45 PM EDT [facility] [address] [place], [place] [address] Ultrasound Report Signed Patient: Sridevi Pruitt I MR#: [id number] 2336 : 1960 Acct:[id number] Age/Sex: 64 / F ADM Date: 05/18/25 Loc: HO.MAMMO Attending Dr: Sue Coats MD Ordering Physician: Sue Coats MD Date of Service: 05/18/25 Procedure(s): US breast LT limited mamm only Accession Number(s): [id number] cc: Libra Barone MD; Sue Coats MD [...] clip from previous needle core biopsy. Left: Raynham marker in the lower inner left breast [...] 05/18/25 1443 DD/ 1323 TD/TT: 05/18/25 1422 Varnish Mixer: Procedure Note Donotuseinterpreter, Image - 05/18/[facility] [address] [place] [address] Ultrasound Report Signed Patient: Sridevi Pruitt IMR#: [id number] : 9Acct:[id number] Age/Sex: 64 / FADM Date: 05/18/25 Loc: HO.MAMMO Attending Dr: Sue Coats MD Ordering Physician: Sue Coats MD Date of Service: 05/18/25 Procedure(s): US breast LT limited mamm only Accession Number(s): [id number] cc: Libra Barone MD; Sue Coats MD [...] clip from previous needle core biopsy. Left: Raynham marker in the lower inner left breast [...] Mooney DO 05/18/2025 02:43 PM EDT RP Workstation: [employer] Dictated By: Donna Mooney DO Signed By: <Electronically signed by Donna Mooney DO in OV> 05/18/25 1443 DD/ 1323 TD/TT: 05/18/25 1422 Varnish Mixer: us Sue Coats MD IMG US PROCEDURES Final Result * Albumin, Random Urine W/Creatinine (04/18/2025 8:51 AM EDT) Creatinine, Urine 214.51 mg/dL [facility] Microalbumin Urine 16.0 mg/L [facility] Microalbum Creatinine Ratio Ur 7.4 <30 ug/mg cr [facility] Comment:Albumin/Creatinine R atio Reference Ranges: Normal: < 30 ug/mg creatinine Microalbuminuria: 30 - 300 ug/mg creatinineClinical Albuminuria: > 300 ug/mg creatinine Urine 04/18/2025 8:51 AM EDT 04/18/2025 11:06 AM EDT us Libra Barone MD LAB URINE ORDERABLES Final Result [facility] [address] [place] [phone] * (ABNORMAL) Hemoglobin A1c (04/18/2025 8:51 AM EDT) Hemoglobin A1c 7.2(H) <6.0 % [facility] Comment:Hemoglobin A1C Refer ence Range Adults: 4.8 - 6.0 % Non diabetic: < 6.0 % Goal: < 7.0 %Additional Action Suggested: > 8.0 %Note: Hemoglobin A1c results are invalid for patients with abnormal amounts of HbF. Blood transfusions may impact the HbA1c concentration in the patient sample. Estimated Average Glucose 160 mg/dL [facility] Comment:eAG = Estimated ave rage glucose which is %A1C expressed asaverage glucose, using the formula of the U1S-LoxwkzhMftciyh Glucose study (ADAG), Diabetes Care, Vol.31,#8,Jun. 2007 Blood Venous blood specimen / Unknown 04/18/2025 8:51 AM EDT 04/18/2025 11:06 AM EDT Libra Barone MD LAB BLOOD ORDERABLES Final Result Performing Organization Address City/[facility] Co de Phone Number [facility] [address] [place] [phone] * Lipid Panel, Standard (04/18/2025 8:51 AM EDT) Triglycerides 61 <150 mg/dL [facility] Comment:Desirable Triglyceri de: less than 150 mg/dLBorderline High Triglyceride 150-199 mg/dLHigh Triglyceride: 200-499 mg/dLVery High Triglyceride: greater than or equal to 5OO mg/dL Cholesterol 144 <200 mg/dL [facility] Comment:Desirable Cholestero l: less than 200 mg/dLBorderline High Cholesterol: 200-239 mg/dLHigh Cholesterol: greater than 239 mg/dL LDL Cholesterol Calculated 79 <100 mg/dL [facility] Comment:Desirable LDL: less than 100 mg/dLNear Optimal/Above Optimal LDL: 110- 129 mg/dLBorderline High LDL: 130-159 mg/dLHigh LDL: 160-189 mg/dLVery High LDL: greater than or equal to 190 mg/dL HDL Cholesterol 53 >40 mg/dL [facility] Comment:Desirable HDL: great er than 40 mg/dL Note: This HDL assay may give artificially low results in patients with liver disease. Blood Venous blood specimen / Unknown 04/18/2025 8:51 AM EDT 04/18/2025 11:06 AM EDT Libra Barone MD LAB BLOOD ORDERABLES Final Result [facility] [address] [place] [phone] * ThinPrep Imaging Pap and HPV mRNA E6/E7 with Reflex to HPV 16,18/45 (06/21/2024 9:52 AM EDT) HPV 16 RNA [facility] HPV 18/45 RNA [facility] HPV nRNA E6/E7 Not Detected Not Detected [facility] Comment:Methodology: Transcr iption-Mediated AmplificationThis assay detects E6/E7 viral messenger RNA (mRNA) from 14high-risk HPV types (16,18,31,33,35,39,45,51,52,56,58,59,66,68).Cervical sources are required for HPV testing.If a vaginal source from a patient who has had atotal hysterectomy with removal of cervix wassubmitted, please contact the testing laboratoryfor alternative testing options.For additional information, please refer tohttp://education.Cytoo/faq/FZE670b4(This link if provided for information/educational purposes only.)THIS TEST WAS PERFORMED AT:[employer] [place] [phone] KHAN MD SOURCE: SEE NOTE [facility] Comment:Cervix Report Status: [facility] Clinical Information: SEE NOTE [facility] Comment:ROUTINE LMP: SEE NOTE [facility] Comment:PM Prev. PAP: SEE NOTE [facility] Comment:06/05/22 Prev. BX: SEE NOTE [facility] Comment:NONE GIVEN Statement Of Adequacy: SEE NOTE [facility] Comment:SATISFACTORY FOR GHAZAL LUATION General Categorization: [facility] Interpretation/Result: SEE NOTE [facility] Comment:Cytology Results: Ne gative for intraepitheliallesion or malignancy.Atrophic pattern; predominantly parabasal cells Cytology Comment SEE NOTE [facility] Comment:This Pap test has be en evaluated with computerassisted technology. Clerk Typist: SEE NOTE [facility] Comment:BK,CT(ASCP)CT screen ing location: [address] Review Clerk Typist: TNP [facility] Pathologist TNP [facility] PAP Infection [facility] See Note SEE NOTE [facility] Comment:EXPLANATORY NOTE:The Pap is a screening test for cervical cancer. It isnot a diagnostic test and is subject to false negativeand false positive results. It is most reliable when asatisfactory sample, regularly obtained, is submittedwith relevant clinical findings and history, and whenthe Pap result is evaluated along with historic andcurrent clinical information. 06/21/2024 9:52 AM EDT 06/21/2024 2:35 PM EDT Narrative [facility] - 06/23/2024 12:57 PM EDT SEE SCANNED RESULTS IN EMRWas previous PAP abnormal? YesIf PAP abnormal, please specify: hpv +Clinical Information: RoutineCollection Date: 06/21/24LMP: postmenopausalDate of previous PAP 06/05/22Performed by: : Cervical us Generic External Data Provider LAB PATHOLOGY ORD ERABLES Final Result [facility] [address] [place] [phone] * Hepatitis Panel, General (07/22/2023 1:58 PM EDT) Hepatitis A IgM Nonreactive Nonreactive [facility] Comment:IgM antibodies to WOLF V not detected; does not exclude earlyacute or recovered HAV infection. ~Hepatitis B Surface Antibody REACTIVE Nonreactive [facility] Comment:REACTIVE: > 11.99 mI U/mL Hepatitis B Core Antibody Nonreactive Nonreactive [facility] Hepatitis C Antibody Nonreactive Nonreactive [facility] Comment:Antibodies to HCV no t detected; does not exclude early acuteHCV infection. Hepatitis B Surface Ag Negative Negative [facility] 07/22/2023 1:58 PM EDT 07/22/2023 1:59 PM EDT [facility] External Provider LAB BLO OD ORDERABLES Final Result [facility] [address] [place] [phone] * Hm Colonoscopy (12/01/2022 12:16 PM EST) Historical Provider MD HEALTH MAINTENANCE Final Result from Last 3 Months or Most Recently Relevant to Health Maintenance [place] [phone] [place] [facility] OPTIONS (HMO D-SNP) [facility] [place] [phone] [facility] Care Teams Pre Sales Systems Engineer Relationship Specialty Start Date End Date Lizabeth, MD Libra [address] [place] [address] PCP - General Family Medicine 11/23/18 Malu Medina, LisaD [address] [place] [phone] Pharmacist Internal Medicine 05/09/24 Tamie Vega OD [address] [place] [address] Optometry 02/16/25 Ming Tanya [address] [place] [address] 3rd [place] [address] Gastroenterology 04/20/25
--- OUTSIDE RECORDS SUMMARY | 2025-07-21 20:26 | XMS_ITS | Encounter Summary ---
Author Organization [employer] Address [address] [facility] 7t [place] [address] Care Team Providers Care Executive Personal Assistant Name Role Phone Libra Barone MD Primary Care Provider [phone]- [phone] Malu Medina PharmD Unavailable Tamie Vega OD Unavailable [phone] February Unavailable Encounter Details Date Type Department Care Team (Latest Contact Info) Description 03/25/2021 Abstract [facility] CONVERSIONS Dental, Provider, DDS Social History [...] 07/26/2025 3:00 PM EDT Medication Management [facility] [address] [place] [phone] Malu Medina, PharmD [address] [place] [address] 08/09/2025 9:00 AM EDT Office Visit [facility] [address] [place] [address] Libra Barone MD [address] [place], [place] [phone] documented as of this encounter Visit Diagnoses Not on filedocumented in this encounter Care Teams Executive Personal Assistant Relationship Specialty Start Date End Date Libra Barone MD [address] [place] [address] PCP - General Family Medicine 11/23/18 Malu Medina PharmD [address] [place] [address] Pharmacist Internal Medicine 05/09/24 Tamie Vega OD [address] [place] [address] Optometry 02/16/25 Ming Tanya [address] [place] [address] 3rd [place] [address] Gastroenterology 04/20/25 documented as of this encounter
--- OUTSIDE RECORDS SUMMARY | 2025-07-21 20:26 | XMS_ITS | Encounter Summary ---
Author Organization [employer] Address [address] [facility] 7t [place] [address] Care Team Providers Care Audio Visual Director Name Role Phone Libra Barone MD Primary Care Provider [phone] Malu Medina PharmD Unavailable Tamie Vega OD Unavailable February Unavailable Encounter Details Date Type Department Care Team (Latest Contact Info) Description 10/09/2022 Abstract [facility] CONVERSIONS Dental, Provider, DDS Social History [...] 3:00 PM EDT Medication Management [facility] [address] [place] [phone] Malu Medina, PharmD [address] [place] [address] 08/09/2025 9:00 AM EDT Office Visit [facility] [address] [place] [phone] Libra Barone MD [address] [place], [place] [phone] documented as of this encounter Visit Diagnoses Not on filedocumented in this encounter Care Teams Audio Visual Director Relationship Specialty Start Date End Date Libra Barone MD [address] [place] [address] PCP - General Family Medicine 11/23/18 Malu Medina PharmD [address] [place] [address] Pharmacist Internal Medicine 05/09/24 Tamie Vega OD [address] [place] [phone] Optometry 02/16/25 Ming Tanya [address] [place] [address] 3rd [place] [address] Gastroenterology 04/20/25 documented as of this encounter
--- OUTSIDE RECORDS SUMMARY | 2025-07-21 20:26 | XMS_ITS | Encounter Summary ---
Author Organization [employer] Address [address] [facility] 7t [place] [address] Care Team Providers Care Food Production Worker Name Role Phone Libra Barone MD Primary Care Provider [phone] Malu Medina PharmD Unavailable Tamie Vega OD Unavailable February Unavailable Reason for Visit * Reason Onset Date Comments Pharmacy [facility] 08/19/2024 Encounter Details Date Type Department Care Team ([facility] Contact Info) Description 08/19/2024 Telephone [facility] MEDICINE [address] [place], [place] [phone] Libra Barone MD [address] [place], [place] [phone] Pharmacy [facility] Social History Tobacco Use Types [...] Description 07/26/2025 3:00 PM EDT Medication Management [facility] MEDICINE [address] [place] [phone] Malu Medina, PharmD [address] [place] [address] 08/09/2025 9:00 AM EDT Office Visit [facility]INE [address] [place] [address] Libra Barone MD [address] [place] [address] documented as of this encounter Goals Goal [...] documented as of this encounter Care Teams Food Production Worker Relationship Specialty Start Date End Date Libra Barone MD [address] [place] [phone] PCP - General Family Medicine 11/23/18 Malu Medina PharmD [address] [place] [address] Pharmacist Internal Medicine 05/09/24 Tamie Vega OD [address] [place] [address] Optometry 02/16/25February [address] [place] [address] 3rd [place] [address] Gastroenterology 04/20/25 documented as of this encounter
--- OUTSIDE RECORDS SUMMARY | 2025-07-21 20:26 | XMS_ITS | Encounter Summary ---
Author Organization [employer] Address [address] [facility] 7t [place] [address] Care Team Providers Care Coffee Shop Aide Name Role Phone Libra Barone MD Primary Care Provider [phone]- [phone] Malu Medina PharmD Unavailable Tamie Vega OD Unavailable February Unavailable Encounter Details Date Type Department Care Team (Latest Contact Info) Description 03/14/2019 Abstract [facility] CONVERSIONS Dental, Provider, DDS Social History [...] 07/26/2025 3:00 PM EDT Medication Management [facility] MEDICINE [address] [place] [phone] Malu Medina, PharmD [address] [place] [address] 08/09/2025 9:00 AM EDT Office Visit [facility] MEDICINE [address] [place] [phone] Libra Barone MD [address] [place], [place] [phone] documented as of this encounter Visit Diagnoses Not on filedocumented in this encounter Care Teams Coffee Shop Aide Relationship Specialty Start Date End Date Libra Barone MD [address] [place] [address] PCP - General Family Medicine 11/23/18 Malu Medina PharmD [address] [place] [address] Pharmacist Internal Medicine 05/09/24 Tamie Vega OD [address] [place] [phone] Optometry 02/16/25 Ming Tanya [address] [place] [address] 3rd [place] [address] Gastroenterology 04/20/25 documented as of this encounter
--- OUTSIDE RECORDS SUMMARY | 2025-07-21 20:26 | XMS_ITS | Encounter Summary ---
Author Organization [employer] Address [address] [facility] 7t [place] [address] Care Team Providers Care Dredge Engineer Name Role Phone Libra Barone MD Primary Care Provider [phone] Malu Medina PharmD Unavailable Tamie Vega OD Unavailable [phone] February Unavailable Reason for Visit * Reason Onset Date Comments Med Refill 05/09/2025 Encounter Details Date Type Department Care Team ([facility] Contact Info) Description 05/09/2025 Telephone [facility] MEDICINE [address] [place], [place] [phone] Libra Barone MD [address] [place], [place] [phone] Med Refill Social History Tobacco Use Types [...] 05/09/2025 2:07 PM EDT Medication sent to [facility] Pharmacy on 01/30/25 #90 with 3 refills. * Telephone Encounter - Celestino Ortega - 05/09/2025 1:56 PM EDT TC from pt requesting medication refill. Medications needing refill : levothyroxine (Synthroid, Levoxyl) 75 MCG tablet To be sent to: [facility] - [place], [place] - [address] [facility] documented in this encounter Plan of Treatment Upcoming Encounters Date Type Department Care Team (Late st Contact Info) Description 07/26/2025 3:00 PM EDT Medication Management [facility] MEDICINE [address] [place] [address] Malu Medina, PharmD [address] [place] [address] 08/09/2025 9:00 AM EDT Office Visit [facility] MEDICINE [address] [place] [address] Libra Barone MD [address] [place] [address] documented as of this encounter Goals Goal [...] documented as of this encounter Care Teams Dredge Engineer Relationship Specialty Start Date End Date Libra Barone MD [address] [place] [address] PCP - General Family Medicine 11/23/18 Malu Medina, LisaD [address] [place] [address] Pharmacist Internal Medicine 05/09/24 Tamie Veag OD [address] [place] [address] Optometry 02/16/25 Ming Tanya [address] [place] [address] 3rd [place] [address] Gastroenterology 04/20/25 documented as of this encounter
--- OUTSIDE RECORDS SUMMARY | 2025-07-21 20:26 | XMS_ITS | Encounter Summary ---
Author Organization [employer] Address [address] [facility] [place] [address] Care Team Providers Care Configuration Engineer Name Role Phone Libra Barone MD Primary Care Provider +- [phone] Malu Medina PharmD Unavailable [phone] Tamie Vega OD Unavailable [phone] February Unavailable Encounter Details Date Type Department Care Team ([facility] Contact Info) Description 07/18/2025 Orders Only [...] 3:00 PM EDT Medication Management [facility] [address] [place] [phone] Malu Medina, PharmD [address] [place] [address] 08/09/2025 9:00 AM EDT Office Visit [facility] MED[facility]INE [address] [place] [phone] Libra Barone MD [address] [place] [phone] documented as of this encounter Goals Goal [...] (07/18/2025 10:05 AM EDT) Color Urine Yellow [facility] Appearance Urine Clear [facility] PH 5.5 5.0 - 9.0 [facility] Glucose Urine UA Negative Negative mg/dL [facility] Urine Blood Trace(A) Negative [facility] Specific [place] - Urine 1.025 1.005 - 1.025 [facility] Urine Protein Negative Neg-Trace mg/dL [facility] Urine Ketones Negative Negative mg/dL [facility] Nitrite Urine Negative Negative [facility] Leukocyte Esterase Urine Negative Negative [facility] RBC Urine 0-2 0 - 2 /HPF [facility] Urine WBC 0-5 0 - 5 /HPF [facility] Urine Squamous Epithelial Cell 0-2 0 - 2 /HPF [facility] Urine Bacteria Trace None Seen [facility] Hyaline Casts, Urine 3-5 0 - 2 /LPF [facility] 07/18/2025 10:0 5 AM EDT 07/18/2025 10:08 AM EDT Narrative [facility] - 07/18/2025 10:16 AM EDT Urine, Clean Catch us Generic External Data Provider LAB URINE ORDERAB LES Final Result Performing Organization Address [facility] de Phone Number [facility] [address] [place] [address] [phone] * (ABNORMAL) Urinalysis w/reflex microscopic (07/18/2025 10:05 AM EDT) Color Urine Yellow [facility] Appearance Urine Clear [facility] PH 5.5 5.0 - 9.0 [facility] Glucose Urine UA Negative Negative mg/dL [facility] Urine Blood Trace(A) Negative [facility] Specific [place] - Urine 1.025 1.005 - 1.025 [facility] Urine Protein Negative Neg-Trace mg/dL [facility] Urine Ketones Negative Negative mg/dL [facility] Nitrite Urine Negative Negative [facility] Leukocyte Esterase Urine Negative Negative [facility] 07/18/2025 10:0 5 AM EDT 07/18/2025 10:08 AM EDT Narrative [facility] - 07/18/2025 10:14 AM EDT Urine, Clean Catch us Generic External Data Provider LAB URINE ORDERAB LES Final Result Performing Organization Address [facility] de Phone Number [facility] [address] [place] [address] [phone] * US Abdomen Limited (07/18/2025 9:48 AM EDT) Anatomical Region Laterality Modality Abdomen Ultrasound 07/18/2025 9:48 AM EDT Narrative 07/18/2025 10:24 AM EDT [address] [address] Ultrasound Report Signed Patient: Sridevi Pruitt I MR#: [id number] : 1960 Acct:[id number] Age/Sex: 65 / F ADM Date: 07/18/25 Loc: .ED Attending Dr: Ordering Physician: Kaelyn Shannon Date of Service: 07/18/25 Procedure(s): US abdomen limited Accession Number(s): [id number] cc: Libra Barone MD; Kaelyn Shannon EXAMINATION: [...] gallbladder wall appear mildly thickened. However, the agricultural engineering technologist reports no gallbladder tenderness with transducer [...] 07/18/25 1022 DD/ 0948 TD/TT: 07/18/25 0958 Mail Messenger Contractor: Procedure Note Donotuseinterpreter, Image - 07/18/[address] [address] Ultrasound Report Signed Patient: Sridevi Pruitt [facility]#: [id number] : 9Acct:[id number] Age/Sex: 65 / FADM Date: 07/18/25 Loc: .ED Attending Dr: Ordering Physician: Kaelyn Shannon Date of Service: 07/18/25 Procedure(s): US abdomen limited Accession Number(s): [id number] cc: Libra Barone MD; Kaelyn Shannon EXAMINATION: [...] gallbladder wall appear mildly thickened. However, the agricultural engineering technologist reports no gallbladder tenderness with transducer [...] 07/18/25 1022 DD/ 0948 TD/TT: 07/18/25 0958 Mail Messenger Contractor: [facility] External Provider IMG US PROCEDURES Final Result * High Sensitivity Troponin I (07/18/2025 7:55 AM EDT) TROPONIN I HIGH SENSITIVITY <2.7 <3.5 - 17.0 ng/L [facility] Comment:The Jacinto high sens itivity Troponin-I results should beused in conjunction with other diagnostic information suchas ECG, clinical observations and information, and patientsymptoms to aid in the diagnosis of GA. 07/18/2025 7:55 AM EDT 07/18/2025 8:42 AM EDT Generic External Data Provider LAB BLOOD ORDERAB LES Final Result [facility] [address] [place] [address] [phone] * Lipase (07/18/2025 7:55 AM EDT) Lipase 33 8 - 78 U/L [facility] 07/18/2025 7:55 AM EDT 07/18/2025 7:59 AM EDT us Generic External Data Provider LAB BLOOD ORDERAB LES Final Result Performing Organization Address [facility]/ZIP Co de Phone Number [facility] [address] [place] [address] [phone] * (ABNORMAL) Basic Metabolic Panel (07/18/2025 7:55 AM EDT) Pathologist [facility] Sodium 138 135 - 145 mmol/L [facility] Potassium 3.9 3.3 - 5.1 mmol/L [facility] Chloride 105 96 - 108 mmol/L [facility] Carbon Dioxide 26 22 - 29 mmol/L [facility] Anion Gap 11(L) 12 - 20 [facility] Urea Nitrogen (BUN) 16 9 - 16 mg/dL [facility] Creatinine, Serum 0.72 0.5 - 1.4 mg/dL [facility] Creatinine Clr Calc Pharmacy 79.0 [facility] Comment:Provided height and weight: 160.02 cm,84.2 kg.eGFR (calculated from the MDRD study equation) and eCrCl(calculated from the Cockcroft-Gault equation) are based ondifferent parameters and may not yield comparable results.If eCrCl result is absurd, please check patient'sheight/weight. Estimated Glomerular Filt Rate >60 [facility] Comment:Chronic Kidney Disea se: Estimated GFR < 60 mL/min/[id number] Kidney Disease: Estimated GFR < 15 mL/min/1.73m2 Glucose 202(H) 60 - 115 mg/dL [facility] Calcium 8.9 8.4 - 10.2 mg/dL [facility] 07/18/2025 7:55 AM EDT 07/18/2025 7:59 AM EDT Generic External Data Provider LAB BLOOD ORDERAB LES Final Result Performing Organization Address [facility] Co de Phone Number [facility] [address] [place] [phone] * (ABNORMAL) Hepatic Function Panel (07/18/2025 7:55 AM EDT) Bilirubin, Total 0.3 0.0 - 1.0 mg/dL [facility] Bilirubin, Direct 0.2 0.0 - 0.5 mg/dL [facility] Aspartate Amino Transferase 20 5 - 31 U/L [facility] Alanine Aminotransferase 12 0 - 31 U/L [facility] Total Protein 6.1(L) 6.5 - 8.0 g/dL [facility] Albumin Level 3.8 3.5 - 5.0 g/dL [facility] Alkaline Phosphatase 82 39 - 117 U/L [facility] 07/18/2025 7:55 AM EDT 07/18/2025 7:59 AM EDT us Generic External Data Provider LAB BLOOD ORDERAB LES Final Result Performing Organization Address [facility] Co de Phone Number [facility] [address] [place] [phone] * CBC auto differential (07/18/2025 7:55 AM EDT) White Blood Count 8.4 4.8 - 10.8 X10*3/uL [facility] Red Blood Count 4.32 4.20 - 5.50 X10*6/uL [facility] Hemoglobin 12.8 12.0 - 16.0 g/dl [facility] Hematocrit 38.3 37.0 - 47.0 % [facility] Mean Corpuscular Volume 88.7 80.0 - 98.0 fL [facility] Mean Corpuscular Hemoglobin 29.6 27.0 - 33.0 pg [facility] Mean Corpuscular HGB Conc 33.4 31.0 - 35.0 g/dl [facility] Red Cell Distribution Width 14.9 11.0 - 16.0 % [facility] Platelet Count 244 160 - 400 X10*3/uL [facility] Mean Platelet Volume 10.6 9.4 - 12.3 fL [facility] Neutrophils Percent Auto 54.2 45 - 73 % [facility] Imm Gran Pct Auto 0.4 0.0 - 0.4 % [facility] Lymphocytes Percent Auto 35.4 20 - 40 % [facility] Monocytes Percent Auto 6.7 2 - 11 % [facility] Eosinophils Percent Auto 2.8 0 - 4 % [facility] Basophils Percent Auto 0.5 0 - 2 % [facility] NRBC Pct Auto 0.0 0.0 - 0.2 /100WBC [facility] Neutrophils Absolute Auto 4.5 2.0 - 8.3 x10*3/uL [facility] Imm Gran Abs Auto 0.03 0.00 - 0.03 X10*3/uL [facility] Lymphocytes Absolute Auto 3.0 1.2 - 4.9 X10*3/uL [facility] Monocytes Absolute Auto 0.6 0.1 - 1.2 X10*3/uL [facility] Eosinophils Absolute Auto 0.2 0.0 - 0.4 X10*3/uL [facility] Basophils Absolute Auto 0.0 0.0 - 0.2 X10*3/uL [facility] NRBC Abs Auto 0.000 0.0 - 0.012 X10*3/uL [facility] 07/18/2025 7:55 AM EDT 07/18/2025 7:59 AM EDT us Generic External Data Provider LAB BLOOD ORDERAB LES Final Result [facility] [address] [place] [phone] documented in this encounter Visit Diagnoses Diagnosis Abdominal pain, unspecified abdominal location- Primary documented in this encounter Additional Health Concerns Assessment Noted Time PHQ-9 Depression Total Score: 0 04/20/20 24 3:44 PM EDT documented as of this encounter Care Teams Configuration Engineer Relationship Specialty Start Date End Date Libra Barone MD [address] [place] [address] PCP - General Family Medicine 11/23/18 Malu Medina, LisaD [address] [place] [address] Pharmacist Internal Medicine 05/09/24 Tamie Vega OD [address] [place] [phone] Optometry 02/16/25February [address] 3rd [place] [address] Gastroenterology 04/20/25 documented as of this encounter
--- OUTSIDE RECORDS SUMMARY | 2025-07-21 20:26 | XMS_ITS | Encounter Summary ---
Author Organization [employer] Address [address] [facility] [address] [place] [address] Care Team Providers Care Customer Program Manager Name Role Phone Libra Barone MD Primary Care Provider +- [phone] Malu Medina PharmD Unavailable [phone] Tamie Vega OD Unavailable [phone] February Unavailable Encounter Details Date Type Department Care Team ([facility] Contact Info) Description 07/21/2025 Orders Only GENERIC EXTERNAL DATA DEPARTMENT Provider, Generic External Data Social History Tobacco Use Types Packs/Day Years [...] Description 07/26/2025 3:00 PM EDT Medication Management [facility] MEDICINE [address] [place] [phone] JassMalu Schroeder, PharmD [address] [place] [phone] 08/09/2025 9:00 AM EDT Office Visit [facility] [address] [place] [phone] Libra Barone MD [address] [place] [phone] documented as of this encounter Goals Goal Patient Goal Type Associated Problems Recent Progress Patient-Stated? Author Blood Pressure < 140/90 Blood Pressure 118/76(2024 3:15 PM EDT) No Piers-Gambl e, Malu, PharmD Hemoglobin A1c < 7 Result Component 7.2( 8:51 AM EDT) No Piers-Gambl e, Malu, PharmD documented as of this encounter Procedures Procedure Name Priority Date/Time Associated Diagnosis Comments XR KUB AND UPRIGHT 2 VIEWS Routine 07/21/2025 8:11 PM EDT CBC WITH AUTO DIFFERENTIAL Routine 07/21/2025 7:40 PM EDT LIPASE Routine 07/21/2025 7:40 PM EDT COMPREHENSIVE METABOLIC PANEL Routine 07/21/2025 7:40 PM EDT documented in this encounter Results * XR KUB and Upright 2 Views (07/21/2025 8:11 PM EDT) Anatomical Region Laterality Modality Radiographic Courtney ging 07/21/2025 8:11 PM EDT Narrative 07/21/2025 8:13 PM EDT [address] [address] XRay Report Signed Patient: Sridevi Pruitt I MR#: [id number] : 1960 Acct:[id number] Age/Sex: 65 / F ADM Date: 07/21/25 Loc: .ED Attending Dr: Ordering Physician: Lester Santos Date of Service: 07/21/25 Procedure(s): XR KUB Accession Number(s): [id number] cc: Libra Barone MD; Lester Santos CLINICAL [...] in OV> 07/21/252011 DD/ 10 TD/TT: 07/21/252010 Couples Therapist: Procedure Note Donotuseinterpreter, Image - 07/21/[address] [address] XRay Report Signed Patient: Sridevi Pruitt IMR#: [id number] : 9Acct:[id number] Age/Sex: 65 / FADM Date: 07/21/25 Loc: HO.ED Attending Dr: Ordering Physician: Lester Santos Date of Service: 07/21/25 Procedure(s): XR KUB Accession Number(s): [id number] cc: Libra Barone MD; Lester Santos CLINICAL [...] in OV> 07/21/252011 DD/ 10 TD/TT: 07/21/252010 Couples Therapist: [facility] External Provider IMG XR PROCEDURES Final Result * Lipase (07/21/2025 7:40 PM EDT) Lipase 35 8 - 78 U/L [facility] 07/21/2025 7:40 PM EDT 07/21/2025 7:43 PM EDT Generic External Data Provider LAB BLOOD ORDERAB LES Final Result [facility] [address] [place] [phone] * (ABNORMAL) Comprehensive Metabolic Panel (07/21/2025 7:40 PM EDT) Sodium 142 135 - 145 mmol/L [facility] Potassium 4.2 3.3 - 5.1 mmol/L [facility] Chloride 104 96 - 108 mmol/L [facility] Carbon Dioxide 27 22 - 29 mmol/L [facility] Anion Gap 15 12 - 20 [facility] Urea Nitrogen (BUN) 12 9 - 16 mg/dL [facility] Creatinine, Serum 0.66 0.5 - 1.4 mg/dL [facility] Creatinine Clr Calc Pharmacy 84.2 [facility] Comment:Provided height and weight: 157.48 cm,83.915 kg.eGFR (calculated from the MDRD study equation) and eCrCl(calculated from the Cockcroft-Gault equation) are based ondifferent parameters and may not yield comparable results.If eCrCl result is absurd, please check patient'sheight/weight. Estimated Glomerular Filt Rate >60 [facility] Comment:Chronic Kidney Disea se: Estimated GFR < 60 mL/min/1.81x9Gtcwdm Kidney Disease: Estimated GFR < 15 mL/min/1.73m2 Glucose 166(H) 60 - 115 mg/dL [facility] Calcium 9.6 8.4 - 10.2 mg/dL [facility] Bilirubin, Total 2.2(H) 0.0 - 1.0 mg/dL [facility] Aspartate Amino Transferase 1,210(H) 5 - 31 U/L [facility] Alanine Aminotransferase 892(H) 0 - 31 U/L [facility] Total Protein 7.1 6.5 - 8.0 g/dL [facility] Albumin Level 4.2 3.5 - 5.0 g/dL [facility] Alkaline Phosphatase 377(H) 39 - 117 U/L [facility] 07/21/2025 7:40 PM EDT 07/21/2025 7:43 PM EDT us Generic External Data Provider LAB BLOOD ORDERAB LES Final Result [facility] [address] [place] [phone] * (ABNORMAL) CBC auto differential (07/21/2025 7:40 PM EDT) White Blood Count 8.3 4.8 - 10.8 X10*3/uL [facility] Red Blood Count 4.59 4.20 - 5.50 X10*6/uL [facility] Hemoglobin 13.6 12.0 - 16.0 g/dl [facility] Hematocrit 40.3 37.0 - 47.0 % [facility] Mean Corpuscular Volume 87.8 80.0 - 98.0 fL [facility] Mean Corpuscular Hemoglobin 29.6 27.0 - 33.0 pg [facility] Mean Corpuscular HGB Conc 33.7 31.0 - 35.0 g/dl [facility] Red Cell Distribution Width 14.9 11.0 - 16.0 % [facility] Platelet Count 260 160 - 400 X10*3/uL [facility] Mean Platelet Volume 10.6 9.4 - 12.3 fL [facility] Neutrophils Percent Auto 74.0(H) 45 - 73 % [facility] Imm Gran Pct Auto 0.4 0.0 - 0.4 % [facility] Lymphocytes Percent Auto 19.1(L) 20 - 40 % [facility] Monocytes Percent Auto 4.8 2 - 11 % [facility] Eosinophils Percent Auto 1.3 0 - 4 % [facility] Basophils Percent Auto 0.4 0 - 2 % [facility] NRBC Pct Auto 0.0 0.0 - 0.2 /100WBC [facility] Neutrophils Absolute Auto 6.1 2.0 - 8.3 x10*3/uL [facility] Imm Gran Abs Auto 0.03 0.00 - 0.03 X10*3/uL [facility] Lymphocytes Absolute Auto 1.6 1.2 - 4.9 X10*3/uL [facility] Monocytes Absolute Auto 0.4 0.1 - 1.2 X10*3/uL [facility] Eosinophils Absolute Auto 0.1 0.0 - 0.4 X10*3/uL [facility] Basophils Absolute Auto 0.0 0.0 - 0.2 X10*3/uL [facility] NRBC Abs Auto 0.000 0.0 - 0.012 X10*3/uL [facility] 07/21/2025 7:40 PM EDT 07/21/2025 7:43 PM EDT us Generic External Data Provider LAB BLOOD ORDERAB LES Final Result [facility] [address] [place] [phone] documented in this encounter Visit Diagnoses Not on filedocumented in this encounter Additional Health Concerns Assessment Noted Time PHQ-9 Depression Total Score: 0 04/20/20 3:44 PM EDT documented as of this encounter Care Teams Customer Program Manager Relationship Specialty Start Date End Date Libra Barone MD [address] [place] [address] PCP - General Family Medicine 11/23/18 Malu Medina, LisaD [address] [place] [address] Pharmacist Internal Medicine 05/09/24 Tamie Vega OD [address] [place] [address] Optometry 02/16/25 Ming February [address] [place] [address] Drive 3[address] [place] [address] Gastroenterology 04/20/25 documented as of this encounter
--- NOTE | 2025-07-21 21:01 | PC.NURSE ---
no blood cultures per md.
[2025-07-21 21:28] LABS: INTERNATIONAL NORM RATIO 1.0 (0.9-1.1); Prothrombin Time 11.9 SEC (10.9-12.4)
--- NOTE | 2025-07-21 21:28 | PC.NURSE ---
pt declined site interpreter and responding appropriately in senegalese. IV established to L. forearm. medicated per mar for nausea, pain and iv abx. awaiting ct scan and ultrasound.
--- NOTE | 2025-07-21 21:30 | PHA.MEDREC ---
Pharmacy Consult ? Medication Reconciliation Pharmacy has completed the medication reconciliation. Utilized claim history and discharge list
[2025-07-21 21:31] LABS: Partial Thromboplastin Time 28.8 SEC (26.7-34.1)
[2025-07-21] MEDS: iohexoL 350 MG/ML 100 ML INFUS..BTL 85 ML IV (22:10)
[2025-07-21 22:32] VITALS: BP 103/74; PULSE 61; RESP 12; TEMP 36.6; O2SAT 94
[2025-07-21 23:00] VITALS: O2SAT 89
[2025-07-21 23:02] VITALS: O2SAT 98
[2025-07-21 23:51] VITALS: BP 103/74; PULSE 62; RESP 18; O2SAT 99
[2025-07-22] VITALS (10 sets, daily range): BP systolic 146–176; BP diastolic 76–94; PULSE 53–89; RESP 14–92; TEMP 36.5–36.8; O2SAT 92–98
--- NOTE | 2025-07-22 01:29 | PM.HPGS ---
History of Present Illness History of Present Illness Date of Service: 07/22/25 Chief complaint: abdo pain Narrative: Sridevi Pruitt I is a 65 year old female who is known to myself and who underwent laparoscopic cholecystectomy 3 days ago for cholecystitis and who was discharged the next day doing well. She came in today because she had right upper quadrant pain that got very sharp and strong that she did not have the 1st 2 days postoperatively. She did have some nausea no vomiting no fevers no chills. She was able to eat however she has not had a bowel movement. She is urinating fine. Here in the emergency room her LFTs were noted to be extraordinarily elevated with her bilirubin at 2.2 and her AST and ALT 1200, 900 and her alk-phos elevated as well at 377. Her white blood count was normal. In the emergency room she had an ultrasound which showed her common bile duct to be elevated at 1.2 cm but no definitive stone was noted. CT scan of her abdomen and pelvis also showed that the common bile duct was enlarged in size up to 1.2 cm and that she had some intrahepatic biliary dilatation as well. A true stone was not noted in the distal common bile duct. The parenchyma of the liver looked fine there was no free fluid no evidence of a bile leak. GI was consulted who recommended the MRCP stat however this is not available until tomorrow. Patient is complaining of right upper quadrant pain but is otherwise hemodynamically stable. She is interviewed with the help of the director chemistry Review of Systems Review of Systems: Yes all other systems are reviewed and are negative [facility] Past Medical History Medical History (Updated 07/22/25 @ 01:45 by Savanah Vega MD) Transaminitis Abdominal bloating Postmenopausal bleeding Unsatisfactory cervical Papanicolaou smear Chronic idiopathic constipation Urinary frequency Diverticulitis Epigastric pain COVID-19 Well woman exam Bacterial vaginosis Uterine mass COVID-19 Well woman exam Smoker Bacterial vaginosis Hypertension Tubular adenoma of colon LLQ abdominal pain 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 Gastritis Family History Family History Father Family history of prostate problems Colon cancer Mother Tumor Surgical History Surgical History (Updated 07/19/25 @ 08:12 by Yasmin Tang PA-C) Hx of hernia repair History of esophagogastroduodenoscopy (EGD) Hx of colonoscopy Social History Social History Household Members: None Housing: Apartment Do you presently have visiting nurse or other home services: Yes ([employer] 15/week) Alcohol intake: never Patient Tobacco Use Status: Never used Tobacco Tobacco use type: Cigarette Cigarettes Per Day: 2 Years Smoked: 20 Smoked in Last 30 Days: No e-Cigarette/Vaping Use: Never Used Second Hand Smoke Exposure: No Use of substances other than those prescribed or required for medical reasons: No Advance Directives: No Advance Directives Information Provided: No Do you have a plan to hurt others: No Plan Nutrition Risks: No Nutritional Risk Current occupational status: disabled Meds Allergies Allergy/AdvReac Type Severity Reaction Status Date / Time No Known Allergies (No Known Allergy Verified 07/21/25 19:37 Allergies*) Active Medications: Current Medications Atenolol (Atenolol 25 Mg Tablet) 25 mg PO DAILY BRIANDA; Protocol Bupropion HCl (Bupropion Hcl Xl 150 Mg Tab.Er.24h) 150 mg PO DAILY BRIANDA Bupropion HCl (Bupropion Hcl Xl 300 Mg Tab.Er.24h) 300 mg PO DAILY [facility] Docusate Sodium (Docusate Sodium 100 Mg Capsule) 100 mg PO BID [facility] Fluticasone Propionate (Fluticasone Propionate Nasal 16 Gm Agra) 2 spray NOSTRIL-B DAILY [facility] Hydromorphone HCl (Hydromorphone Hcl 1 Mg/Ml Syringe) 1 mg IVPUSH Q3H PRN; Protocol PRN Reason: Pain, Moderate(Pain Scale 4-6) Hydromorphone HCl (Hydromorphone Hcl 2 Mg/Ml Vial) 1.5 mg IVPUSH Q4H PRN; Protocol PRN Reason: Pain, Severe (Pain Scale 7-10) Lactated Ringer's (Lr) 1,000 mls @ 125 mls/hr IVCONT .Q8H BRIANDA Piperacillin Sod/Tazobactam (Sod 3.375 gm/ Sodium Chloride) 50 mls @ 100 mls/hr IV Q6H [facility] Levothyroxine Sodium (Levothyroxine Sodium 75 Mcg Tablet) 75 mcg PO DAILY@0630 [facility] Non-Formulary Medication (Pantoprazole) 40 mg PO BID BRIANDA Non-Formulary Medication (Rosuvastatin) 20 mg PO BEDTIME [facility] Non-Formulary Medication (Fluticasone Furoate [Arnuity Ellipta]) 1 inhalation INHALE DAILY [facility] Ondansetron HCl (Ondansetron Hcl 4 Mg/2 Ml Vial) 4 mg IVPUSH Q6H PRN PRN Reason: Nausea and Vomiting Sertraline HCl (Sertraline Hcl 50 Mg Tablet) 150 mg PO DAILY@0900 [facility] Sodium Chloride (0.9 % Sodium Chloride Flush 3 Ml Syringe) 3 ml IVFLUSH QSHIFT [facility] Valsartan (Valsartan 80 Mg Tablet) 80 mg PO DAILY [facility]; Protocol Home Medications ?Medication ?Instructions ?Recorded ?Confirmed ?Last Taken ?Type levothyroxine 75 mcg tablet 75 mcg PO DAILY@0630 05/23/22 07/21/25 07/17/25 History sertraline 100 mg tablet 150 mg PO QAM 05/23/22 07/21/25 07/17/25 History atenolol 25 mg tablet 25 mg PO DAILY 03/24/23 07/21/25 07/17/25 History fluticasone propionate 50 2 spray intranasal DAILY 03/24/23 07/21/25 07/17/25 History mcg/actuation nasal spray,suspension bupropion HCl 150 mg 24 hr tablet, 150 mg PO DAILY 04/20/25 07/21/25 07/17/25 History extended release rosuvastatin 20 mg tablet 20 mg PO BEDTIME 04/20/25 07/21/25 07/17/25 History bupropion HCl 300 mg 24 hr tablet, 300 mg PO DAILY 07/18/25 07/21/25 07/17/25 History extended release fluticasone furoate 100 1 inh inhalation DAILY 07/18/25 07/21/25 07/17/25 History mcg/actuation blister powder for inhalation (Arnuity Ellipta) metformin 500 mg tablet,extended 500 mg PO DAILY 07/18/25 07/21/25 07/17/25 History release 24 hr metoclopramide HCl 10 mg tablet 10 mg PO TID 07/18/25 07/21/25 07/17/25 History (Reglan) valsartan 80 mg tablet 80 mg PO DAILY 07/18/25 07/21/25 07/17/25 History Physical Exam Vital Signs: Vital Signs: Last Vital Signs Temp 97.8 F 07/21/25 22:32 Pulse 62 07/21/25 23:51 Resp 18 07/21/25 23:51 BP 103/74 07/21/25 23:51 Pulse Ox 99 07/21/25 23:51 O2 Del Method Nasal Cannula 07/21/25 23:02 O2 Flow Rate 2 07/21/25 23:02 BMI result Body Mass Index 33.8 Const: General: cooperative, healthy appearing and acute distress mild Orientation/consciousness: patient oriented x3 Eyes: Other: Nonicteric Resp: Effort & Inspection: normal respiratory effort Auscultation: clear to auscultation bilaterally Cardio: Rate: regular rate Rhythm: regular rhythm GI: Other: Abdomen is soft tender in the right upper quadrant mild guarding no peritoneal signs all incision sites look good no erythema or infection no drainage Neuro: General: patient oriented x3 Cranial nerves: Yes CN's II-XII intact bilaterally Extrem: General: Yes normal to inspection Results Results Labs: Short CBC 07/21/25 Range/Units 19:40 WBC 8.3 (4.8-10.8) X10*3/uL Hgb 13.6 (12.0-16.0) g/dl Hct 40.3 (37.0-47.0) % Plt Count 260 (160-400) X10*3/uL BMP 07/21/25 19:40 Sodium 142 Potassium 4.2 Chloride 104 Carbon Dioxide 27 BUN 12 Creatinine 0.66 Calcium 9.6 D Liver Function 07/21/25 Range/Units 19:40 Total Bilirubin 2.2 H (0.0-1.0) mg/dL AST 1210 H (5-31) U/L ALT 892 H (0-31) U/L Alkaline Phosphatase 377 H (39-117) U/L Albumin 4.2 (3.5-5.0) g/dL Abdomen CT scan report/results: report reviewed CT scan - pelvis: image reviewed Abdominal ultrasound report/results: report reviewed Additional studies: [address] [address] Ultrasound Report Signed Patient: Sridevi Pruitt I MR#: [id number] : 1960 Acct:[id number] Age/Sex: 65 / F ADM Date: 07/21/25 Loc: HO.ED Attending Dr: Ordering Physician: Noel Ch MD Date of Service: 07/21/25 Procedure(s): US abdomen limited Accession Number(s): [id number] cc: Libra Barone MD; Noel Ch MD~ CLINICAL HISTORY: RUQ pain. s p lap rita. New transaminitis US abdomen limited Comparison: CT/REG/SR - CT ABDOMEN PELVIS W IV CON - 07/21/25 22:07 EDT Findings: Limited visualization of the pancreas due to bowel gas. The partially visualized inferior vena cava is unremarkable. The liver is normal in size and echotexture. There is mild intrahepatic bile duct dilatation. The common duct is 7-12 mm in diameter. Status post cholecystectomy. No fluid collection seen in the gallbladder fossa. The main portal vein is antegrade. The right kidney is 10.4 cm in length. No ascites. IMPRESSION: Status post cholecystectomy. No fluid collection seen in the gallbladder fossa. Postsurgical dilation of the common bile duct up to 12 mm. No sonographic evidence of common bile duct stones. 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 Status post interval cholecystectomy with postsurgical intrahepatic and extrahepatic biliary tree dilation with the common bile duct measuring 1.2 cm. No radiopaque biliary tree stones seen. Solid organs unremarkable. Portal and mesenteric veins are patent. Diverticulosis without evidence of diverticulitis. No bowel obstruction, pneumoperitoneum, or pneumatosis. Uterine lipoma. Bilateral adnexae unremarkable. Urinary bladder underdistended, limiting evaluation. Normal appendix. Postsurgical midline abdominal change. The bones are intact. IMPRESSION: Status post interval cholecystectomy with postsurgical intrahepatic and extrahepatic biliary tree dilation with common bile duct measuring 1.2 cm. No radiopaque biliary tree stones. Portal and mesenteric veins are patent. This document has been electronically signed by: Chris Alcazar MD on 07/21/2025 23:28:41 Dictated By: Chris Alcazar MD Signed By: <Electronically signed by Chris Alcazar MD in [place]> 07/21/252328 DD/ 27 TD/TT: 07/21/252327 Acoustical Tile Drill Press Operator: Assessment and Plan (1) Elevated LFTs: Status: Acute Plan Patient is a 65-year-old female 3 days status post laparoscopic cholecystectomy for acute cholecystitis coming in with increasing abdominal pain today and in the ER LFTs noting to be extremely elevated. Question etiology. From the studies done common bile duct is very distended dilated going into the intrahepatic ducts however distal stone is not obviously identified. Imaging shows the cystic duct being transected with clips on the cystic duct without any apparent injury to the common bile duct. The liver parenchyma picks up well and the vascular structures that go to the liver all seem intact and normal. Question whether the patient may have a distal stone or still may have some type of injury to the common bile duct. Plan to admit NPO carry out MRCP and evaluate the findings tomorrow morning. We will follow along LFTs get GI consult keep her on antibiotics and IV fluid resuscitation and IV pain meds. Patient understands and agrees with the above plan as explained with the director chemistry Quality Stroke Does the patient have a stroke diagnosis?: No VTE Prior VTE?: No VTE Risk Level:: Surgical - low VTE Device Contraindication: N/A - Device Ordered VTE Drug Contraindication: Treatment Not Indicated Procedures Date of Service Date of Service: 07/22/25
[2025-07-22] MEDS: Lactated Ringers 1,000 ML 125 ML IVCONT ×3 (02:03→17:55)
[2025-07-22 06:25] LABS: MANUAL DIFF FLAG NO
[2025-07-22 06:37] LABS: Appearance Urine Clear; Glucose Urine UA Negative (Negative); PH 6.5 (5.0-9.0); Specific Gravity - Urine >= 1.030 (1.005-1.025); UMIC TRIGGER UACC YES
[2025-07-22 06:43] LABS: Albumin Level 4.1 g/dL (3.5-5.0); Alkaline Phosphatase 493 U/L (39-117); Anion Gap 14 (12-20); Aspartate Amino Transferase 1467 U/L (5-31); Blood Urea Nitrogen 9 mg/dL (9-16); Calcium 9.3 mg/dL (8.4-10.2); Carbon Dioxide 28 mmol/L (22-29); Chloride 103 mmol/L (96-108); Creatinine Clr Calc Pharmacy 95.8; Estimated Glomerular Filt Rate > 60; Potassium 4.4 mmol/L (3.3-5.1); Sodium 141 mmol/L (135-145); Total Protein 6.9 g/dL (6.5-8.0)
[2025-07-22 06:44] LABS: Hematocrit 40.5 % (37.0-47.0); Hemoglobin 13.3 g/dl (12.0-16.0); Imm Gran Abs Auto 0.04 X10*3/uL (0.00-0.03); Imm Gran Pct Auto 0.5 % (0.0-0.4); Lymphocytes Absolute Auto 0.8 X10*3/uL (1.2-4.9); Mean Corpuscular HGB Conc 32.8 g/dl (31.0-35.0); Mean Corpuscular Hemoglobin 29.6 pg (27.0-33.0); Mean Corpuscular Volume 90.0 fL (80.0-98.0); NRBC Abs Auto 0.000 X10*3/uL (0.0-0.012); NRBC Pct Auto 0.0 /100WBC (0.0-0.2); Platelet Count 210 X10*3/uL (160-400); Red Blood Count 4.50 X10*6/uL (4.20-5.50); White Blood Count 8.7 X10*3/uL (4.8-10.8)
[2025-07-22 06:55] LABS: Alanine Aminotransferase 1287 U/L (0-31)
[2025-07-22] MEDS: Fluticasone Propionate 100 MCG BLST.W.DEV 1 PUFF INHALE ×2 (07:54→19:53)
[2025-07-22] MEDS: buPROPion HCl XL 150 MG TAB.ER.24H PO (08:44)
[2025-07-22] MEDS: buPROPion HCl XL 300 MG TAB.ER.24H PO (08:44)
[2025-07-22 11:50] LABS: INTERNATIONAL NORM RATIO 1.0 (0.9-1.1); Prothrombin Time 11.7 SEC (10.9-12.4)
[2025-07-22 12:01] LABS: Acetaminophen LAB < 3 mcg/mL (<30); Albumin Level 4.4 g/dL (3.5-5.0); Alkaline Phosphatase 558 U/L (39-117); Aspartate Amino Transferase 1261 U/L (5-31); Lipase 40 U/L (8-78); Total Protein 7.3 g/dL (6.5-8.0)
[2025-07-22 12:13] LABS: Alanine Aminotransferase 1380 U/L (0-31)
[2025-07-22 12:18] LABS: HBS Num1 10.44 mIU/mL (0-7.99); HBc Num1 0.07 S/CO (0.00-0.79); HBsAGNum1 0.55 S/CO (0.00-0.99); Hepatitis B Surface Antigen Negative (Negative); ~HepC Num1 0.11 S/CO (0.00-0.79); ~Hepatitis C Antibody Nonreactive (Nonreactive)
[2025-07-22 12:54] LABS: Hepatitis A Antibody IgM 0.22 Index (0-0.79); ~Hepatitis A Antibody IgM Nonreactive (Nonreactive)
[2025-07-22 13:05] LABS: HBS Num2 10.78 mIU/mL (0-7.99); HBS Num3 11.22 mIU/mL (0-7.99); ~Hepatitis B Surface Antibody GRAYZONE (Nonreactive)
--- NOTE | 2025-07-22 17:31 | PM.EVENT ---
Event Note Date of Service: 07/22/25 Event Note: GI Consult-Full note dictated-History obtained with daughter as aircraft fueler at the bedside Imp: Abdominal pain, elevated LFT's, and jaundice in a 65 yo female 3 days s/p Lap CCY. Workup has included unrevealing U/S, CT, and MRCP studies in regard to any apparent portal vein thrombosis, biliary injury, biliary obstruction, biliary stricture, or CBD stones. There is no evidence for underlying previous liver disease or any signs of hepatic failure at this time. There has been no suspicious food or drug intake, alcohol use, or ill contacts. Diff dx: Passed CBD stone with atypically high LFT's, retained and nonvisualized CBD stone with atypically high LFT's, unknown drug-induced hepatitis, unobserved hypotension with shock liver, autotimmune hepatitis, viral hepatitis. Rec: Continued observation with close F/U of labs, hold off on ERCP at this time, avoid any hepatotoxic drugs, transfer to liver transplant center if it appears she is developing signs of liver failure, clear liquids for now. D/W patient and her daughter in detail. They are comfortable with this plan. Thanks Time Spent With Patient Time: Total time managing care of this patient today ____ minutes.
--- NOTE | 2025-07-22 22:24 | CONS_ITS ---
DATE OF SERVICE: 07/22/2025 REASON FOR CONSULTATION: Elevated LFTs, jaundice, and abdominal pain. HISTORY OF PRESENT ILLNESS: This has been obtained with her daughter at the bedside as cloud infrastructure architect, and from the medical record. The patient is a 65-year-old generally healthy female without any pre-existing history of known liver disease, who underwent a laparoscopic cholecystectomy on July 18. This appeared to go without any complication and she was discharged the following day on July 19. On the day of discharge and the following day at home, she was feeling well. On July 20, she felt well during the day and was eating comfortably. However, after falling asleep, she was awakened at about 4 a.m. with severe upper abdominal pain, which prompted her to come back to the ER. In the ER, she was noted to have significantly elevated LFTs with associated jaundice. She was treated with analgesics, IV fluids, and supportive care. Imaging studies including ultrasound and CT scan were unrevealing, as was a subsequent MRCP. There is no previous history of liver disease in herself, nor family members. She had a normal liver profile on the morning of surgery. Her preop imaging study was negative for any sign of biliary disease. Since admission, she has had some intermittent abdominal pain requiring analgesics. There has been no vomiting. She denies any bowel movements today. There has been no rectal bleeding. She denies any urinary symptoms. She denies any history of new medication use after discharge. She has not been using any significant amounts of acetaminophen, nor NSAIDs. She does not use any significant amounts of alcohol in general. There have been no ill contacts at home. She denies eating any suspicious foods, including mushrooms, since discharge from the hospital. MEDICATIONS: At home included atenolol, bupropion, dicyclomine p.r.n., Colace, thyroid, metformin, pantoprazole, rosuvastatin, sertraline, and valsartan. Her medications in the hospital include atenolol, bupropion, hydromorphone p.r.n., levothyroxine, omeprazole, Zofran p.r.n., IV Zosyn, sertraline, and valsartan. PAST MEDICAL HISTORY: Recent cholecystectomy as above. She denies any other surgeries. She does have a history of hypertension, reflux, non insulin-dependent diabetes mellitus, hyperlipidemia. She denies any history of MS, stroke, lung disease, or kidney disease. SOCIAL HISTORY: She lives by herself. She does smoke, but denies any alcohol use. FAMILY HISTORY: Negative for liver disease or GI malignancy. REVIEW OF SYSTEMS: CONSTITUTIONAL: At home, she had been feeling somewhat tired after surgery, but otherwise fairly well. CARDIAC: No chest pain. PULMONARY: No coughing or hemoptysis. GI: As above. URINARY: No dysuria or hematuria. NEUROLOGIC: No headache or seizures. PHYSICAL EXAMINATION: GENERAL: The patient is a pleasant, alert, comfortable-appearing female. HEENT: Anicteric sclerae. Moist mucous membranes. NECK: Supple without lymphadenopathy. CARDIAC: Normal S1, S2. ABDOMEN: Soft with normal bowel sounds. She does have some mild diffuse tenderness, but without focal tenderness, mass, rebound, or guarding. EXTREMITIES: Without edema. NEUROLOGICAL: She is alert and oriented without asterixis. She answers questions appropriately through her daughter as cloud infrastructure architect. LABORATORY DATA: I did review her MRCP which appears very normal other than some slight biliary dilatation, but without any focal stricture, sign of bile duct injury, or common bile duct stone. The pancreatic duct appears normal as well. Her ultrasound and CT scan were also unremarkable including normal flow in the portal vein. There was no sign of any fluid collection. White blood cell count 8.7, hemoglobin 13.3, platelets 210,000. PT/INR has been normal, both yesterday and today. Normal electrolytes and renal function. Normal calcium. Slightly elevated blood sugar of 172. Total bilirubin on admission was 2.2, which has increased to 4.6 with a direct bilirubin of 3.7 at about noontime today. Her AST was 1210 yesterday morning, 1467 this morning, and 1261 at about noontime. Her ALT was 892 yesterday, 1287 this morning, and 1380 at noontime. Her alkaline phosphatase was 377 yesterday, 493 this morning, and 558 at about noontime today. Lipase was normal. Albumin is 4.4. Toxicology revealed a nondetectable acetaminophen level this morning. She had negative mitochondrial and smooth muscle antibodies in 2022. She had negative hepatitis serologies in 2022 including hepatitis A IgM, hepatitis B antigen, and hepatitis C antibody. IMPRESSION: The patient is a 65-year-old female 3 days status post laparoscopic cholecystectomy, presenting with acute abdominal pain and significantly elevated transaminases with associated jaundice. The workup has thus far been negative for any sign of biliary disease such as biliary stricture, biliary injury, or retained common duct stone. She has no particular risk factors for hepatitis such as drug use or alcohol use. She has not been using any new medication, either [id number] or prescription. She has no other history such as ill contacts or suspicious food intake. At this point, the clinical scenario with abdominal pain and elevated LFTs, status post laparoscopic cholecystectomy would typically be that of a common duct stone. However at this point, the workup for that has been negative including what appears to be a normal MRCP, which I have reviewed and does appear quite normal with a good study obtained. She may very well have passed a stone, although the degree of the elevated LFT's would be rather atypical. Therefore, I am inclined to hold off on ERCP at this point since there is no definitive indication for that. Studies have been ordered to rule out viral hepatitis, autoimmune hepatitis, and to be sure there was no sign of liver failure by following serial PT with INRs, ammonia levels, and LFTs. If it appears that she is developing any signs of liver failure such as worsening PT with INR, elevated ammonia level, or simply worsening LFTs, then she would need to be transferred to a transplant center. If there is any sign of biliary obstruction as her course goes on, then we could certainly proceed with ERCP at that point. At this point, she will otherwise continue with observation and close followup of her laboratories. She will be advanced to a liquid diet for the time being. This has all been discussed with the patient and her daughter in detail. They are both comfortable with the plan. Thanks for the consultation. MD ANNE-MARIE Ziegler/AYLIN / [id number] ALEJANDRINA
[2025-07-23] VITALS (9 sets, daily range): BP systolic 129–170; BP diastolic 60–78; PULSE 64–75; RESP 16–22; TEMP 36–37.1; O2SAT 92–94
[2025-07-23] MEDS: Lactated Ringers 1,000 ML 125 ML IVCONT ×4 (00:35→23:05)
[2025-07-23 06:47] LABS: MANUAL DIFF FLAG NO
[2025-07-23 06:50] LABS: Ammonia 34 umol/L (13-55)
[2025-07-23 07:00] LABS: INTERNATIONAL NORM RATIO 1.2 (0.9-1.1); Prothrombin Time 13.6 SEC (10.9-12.4)
[2025-07-23 07:03] LABS: Hematocrit 37.5 % (37.0-47.0); Hemoglobin 12.0 g/dl (12.0-16.0); Imm Gran Abs Auto 0.03 X10*3/uL (0.00-0.03); Imm Gran Pct Auto 0.4 % (0.0-0.4); Lymphocytes Absolute Auto 1.0 X10*3/uL (1.2-4.9); Mean Corpuscular HGB Conc 32.0 g/dl (31.0-35.0); Mean Corpuscular Hemoglobin 29.1 pg (27.0-33.0); Mean Corpuscular Volume 91.0 fL (80.0-98.0); NRBC Abs Auto 0.000 X10*3/uL (0.0-0.012); NRBC Pct Auto 0.0 /100WBC (0.0-0.2); Platelet Count 186 X10*3/uL (160-400); Red Blood Count 4.12 X10*6/uL (4.20-5.50); White Blood Count 8.5 X10*3/uL (4.8-10.8)
[2025-07-23 07:13] LABS: Alanine Aminotransferase 828 U/L (0-31); Albumin Level 3.5 g/dL (3.5-5.0); Alkaline Phosphatase 465 U/L (39-117); Anion Gap 15 (12-20); Aspartate Amino Transferase 426 U/L (5-31); Blood Urea Nitrogen 7 mg/dL (9-16); Calcium 9.0 mg/dL (8.4-10.2); Carbon Dioxide 26 mmol/L (22-29); Chloride 100 mmol/L (96-108); Creatinine Clr Calc Pharmacy 97.5; Estimated Glomerular Filt Rate > 60; Potassium 4.2 mmol/L (3.3-5.1); Sodium 137 mmol/L (135-145); Total Protein 6.0 g/dL (6.5-8.0)
[2025-07-23] MEDS: Fluticasone Propionate 100 MCG BLST.W.DEV 1 PUFF INHALE ×2 (08:20→20:31)
[2025-07-23] MEDS: buPROPion HCl XL 300 MG TAB.ER.24H PO (08:30)
[2025-07-23] MEDS: buPROPion HCl XL 150 MG TAB.ER.24H PO (08:30)
--- NOTE | 2025-07-23 13:40 | P.PNGI_ITS ---
Subjective Subjective Date of Service: 07/23/25 Interval History: She reports feeling hungry, much better, and with just minimal abdominal discomfort. Critical Care Time (minutes): 0 Physical Exam 2 Vital Signs: Vital Signs: Last Vital Signs Temp 96.8 F 07/23/25 06:52 Pulse 69 07/23/25 08:28 Resp 16 07/23/25 08:21 BP 134/60 07/23/25 08:30 Pulse Ox 92 07/23/25 06:52 O2 Del Method Room Air 07/23/25 06:52 O2 Flow Rate 2 07/22/25 08:00 BMI result Body Mass Index 33.8 Const: General: cooperative, healthy appearing, comfortable, no acute distress, well developed, alert, awake and Physically active Eyes: Other: No definitive icterus GI: Other: Abd- +BS, soft, NT, no mass, no rebound, no guarding Objective Data Labs 07/23/25 06:38 07/23/25 06:38 Labs: Laboratory Results - last 24 hr 07/23/25 06:38 WBC 8.5 RBC 4.12 L Hgb 12.0 Hct 37.5 MCV 91.0 MCH 29.1 MCHC 32.0 RDW 15.0 Plt Count 186 MPV 11.2 Immature Gran % (Auto) 0.4 Neut % (Auto) 81.0 H Lymph % (Auto) 11.9 L [place] % (Auto) 5.8 Eos % (Auto) 0.5 Baso % (Auto) 0.4 Lymph # (Auto) 1.0 L [place] # (Auto) 0.5 Eos # (Auto) 0.0 Baso # (Auto) 0.0 Abs Immat Gran (auto) 0.03 Absolute Neuts (auto) 6.9 Absolute Nucleated RBC 0.000 Nucleated RBC % (auto) 0.0 PT 13.6 H INR 1.2 H Sodium 137 Potassium 4.2 Chloride 100 Carbon Dioxide 26 Anion Gap 15 BUN 7 L Creatinine 0.57 Estim Creat Clear Calc 97.5 Estimated GFR > 60 Fasting Glucose 147 H Calcium 9.0 Total Bilirubin 5.9 H Direct Bilirubin 4.7 H AST 426 H ALT 828 H Alkaline Phosphatase 465 H Ammonia 34 Total Protein 6.0 L Albumin 3.5 Procedures Date of Service Date of Service: 07/23/25 Progress Note: A&P Assessment and plan (1) Transaminitis: Status: Acute (2) S/P laparoscopic cholecystectomy: Status: Acute (3) Elevated LFTs: Status: Acute (4) Jaundice: Status: Acute Assessment and Plan: Imp/Recs: She has markedly improved in regard to her abdominal symptoms and LFT's. As expected, her TBili has risen due to some residual cholestasis while the other LFT's are coming down. There is no sign of liver failure . The exact etiology remains unclear but the most likely scenario is that of passage of a CBD stone, although again the degree of the elevated LFT's is unusal. Nonetheless, she has improved symptomatically and has a benign abdomen today. I will advance her diet, stop her antibiotics, and order labs for the AM. If stable she could be discharged tomorrow, 07/24, and she can have F/U labs at the end of the week. She is comfortable with this plan. Thanks. Time Spent With Patient Time: Total time managing care of this patient today ____ minutes. Quality Stroke Does the patient have a stroke diagnosis?: No VTE Prior VTE?: No VTE Risk Level:: Surgical - low VTE Device Contraindication: N/A - Device Ordered VTE Drug Contraindication: Treatment Not Indicated
[2025-07-23] MEDS: Milk of Magnesia 30 ML ORAL.SUSP PO (15:44)
--- NOTE | 2025-07-23 16:05 | MHC.CM.PN ---
CM MET WITH PT WITH A ASSEMBLY SUPERVISOR PT LIVES ALONE AND HAS DAILY PHYSICIAN'S AIDE SERVICES PCP: RADAMES FELICIANO WILL COMPLETE A HCP TOMORROW NAMING HER PHYSICIAN'S AIDE, LEEANN SPARROW [phone], HER AGENT IMM DELIVERED DCP: HOME, RESUME PHYSICIAN'S AIDE SERVICES PHYSICIAN'S AIDE TO TRANSPORT
--- NOTE | 2025-07-23 16:38 | P.PNGS_ITS ---
Subjective Subjective Date of Service: 07/23/25 Interval history: pt is feeling well - much better less pain no nausea - hungry passing gas and stool Physical Exam 2 Vital Signs: Vital Signs: Last Vital Signs Temp 98.8 F 07/23/25 16:00 Pulse 65 07/23/25 16:00 Resp 22 H 07/23/25 16:00 BP 169/78 H 07/23/25 16:00 Pulse Ox 93 07/23/25 16:00 O2 Del Method Room Air 07/23/25 16:00 O2 Flow Rate 2 07/22/25 08:00 BMI result Body Mass Index 33.8 Const: General: cooperative, healthy appearing, comfortable and no acute distress GI: Other: abdomen is soft, baseline distension nontender incision sites clean Objective Data Active Medications Atenolol (Atenolol 25 Mg Tablet) 25 mg PO DAILY [facility]; Protocol Last Admin: 07/23/25 08:28 Dose: 25 mg Documented By: DUARTE Bupropion HCl (Bupropion Hcl Xl 150 Mg Tab.Er.24h) 150 mg PO DAILY [facility] Last Admin: 07/23/25 08:30 Dose: 150 mg Documented By: DUARTE Bupropion HCl (Bupropion Hcl Xl 300 Mg Tab.Er.24h) 300 mg PO DAILY [facility] Last Admin: 07/23/25 08:30 Dose: 300 mg Documented By: DUARTE Docusate Sodium (Docusate Sodium 100 Mg Capsule) 100 mg PO BID [facility] Last Admin: 07/23/25 08:28 Dose: 100 mg Documented By: DUARTE Fluticasone Propionate (Fluticasone Propionate Nasal 16 Gm Cataldo) 2 spray NOSTRIL-B DAILY [facility] Last Admin: 07/23/25 08:27 Dose: 2 spray Documented By: DUARTE Fluticasone Propionate (Fluticasone Propionate 100 Mcg Blst.W.Dev) 1 puff INHALE RBID [facility] Last Admin: 07/23/25 08:20 Dose: 1 puff Documented By: ORIANA Hydromorphone HCl (Hydromorphone Hcl 1 Mg/Ml Syringe) 1 mg IVPUSH Q3H PRN; Protocol PRN Reason: Pain, Moderate(Pain Scale 4-6) Last Admin: 07/22/25 06:12 Dose: 1 mg Documented By: BONITA Hydromorphone HCl (Hydromorphone Hcl 2 Mg/Ml Vial) 1.5 mg IVPUSH Q4H PRN; Protocol PRN Reason: Pain, Severe (Pain Scale 7-10) Last Admin: 07/23/25 03:33 Dose: 1.5 mg Documented By: REFUGIO Lactated Ringer's (Lr) 1,000 mls @ 125 mls/hr IVCONT .Q8H [facility] Last Admin: 07/23/25 15:42 Dose: 125 mls/hr Documented By: DUARTE Levothyroxine Sodium (Levothyroxine Sodium 75 Mcg Tablet) 75 mcg PO DAILY@0630 [facility] Last Admin: 07/23/25 05:48 Dose: 75 mcg Documented By: REFUGIO Magnesium Hydroxide (Milk Of Magnesia 30 Ml Oral.Susp) 30 ml PO DAILY PRN PRN Reason: Constipation Last Admin: 07/23/25 15:44 Dose: 30 ml Documented By: DUARTE Metformin HCl (Metformin Hcl 500 Mg Tablet) 500 mg PO DAILY [facility] Last Admin: 07/23/25 15:42 Dose: 500 mg Documented By: DUARTE Omeprazole (Omeprazole 20 Mg Capsule.Dr) 20 mg PO BID [facility] Last Admin: 07/23/25 08:30 Dose: 20 mg Documented By: DUARTE Ondansetron HCl (Ondansetron Hcl 4 Mg/2 Ml Vial) 4 mg IVPUSH Q6H PRN PRN Reason: Nausea and Vomiting Last Admin: 07/22/25 19:47 Dose: 4 mg Documented By: REFUGIO Sertraline HCl (Sertraline Hcl 50 Mg Tablet) 150 mg PO DAILY@0900 [facility] Last Admin: 07/23/25 08:30 Dose: 150 mg Documented By: DUARTE Sodium Chloride (0.9 % Sodium Chloride Flush 3 Ml Syringe) 3 ml IVFLUSH QSHIFT [facility] Last Admin: 07/23/25 15:43 Dose: Not Given Documented By: DUARTE Non-Admin Reason: IV Running Valsartan (Valsartan 80 Mg Tablet) 80 mg PO DAILY [facility]; Protocol Last Admin: 07/23/25 08:30 Dose: 80 mg Documented By: DUARTE Labs 07/23/25 06:38 07/23/25 06:38 Labs: Laboratory Results - last 24 hr 07/23/25 06:38 MCV 91.0 MCH 29.1 MCHC 32.0 RDW 15.0 Plt Count 186 MPV 11.2 Immature Gran % (Auto) 0.4 Neut % (Auto) 81.0 H Lymph % (Auto) 11.9 L [place] % (Auto) 5.8 Eos % (Auto) 0.5 Baso % (Auto) 0.4 Lymph # (Auto) 1.0 L [place] # (Auto) 0.5 Eos # (Auto) 0.0 Baso # (Auto) 0.0 Abs Immat Gran (auto) 0.03 Absolute Neuts (auto) 6.9 Absolute Nucleated RBC 0.000 Nucleated RBC % (auto) 0.0 PT 13.6 H INR 1.2 H Anion Gap 15 Estim Creat Clear Calc 97.5 Estimated GFR > 60 Fasting Glucose 147 H Calcium 9.0 Total Bilirubin 5.9 H Direct Bilirubin 4.7 H AST 426 H ALT 828 H Alkaline Phosphatase 465 H Ammonia 34 Total Protein 6.0 L Albumin 3.5 Procedures Date of Service Date of Service: 07/23/25 Progress Note: A&P Assessment and plan (1) Transaminitis: Status: Acute Plan 65 year old female sp lap rita about 5 days ago, dc and came back with elevated lfts which conitnued to rise - no ductal injury and no obvious stones although duct was significantly enlarged - today lfts down significantly except tbili and she is feeling better -? passed a stone? Plan to continue with advancing diet and recheck labs tomorrow. pt understands and is glad labs are improving appreciate Dr Frias, GI, assistance Time Spent With Patient Time: Total time managing care of this patient today ____ minutes. Quality Stroke Does the patient have a stroke diagnosis?: No VTE Prior VTE?: No VTE Risk Level:: Surgical - low VTE Device Contraindication: N/A - Device Ordered VTE Drug Contraindication: Treatment Not Indicated
[2025-07-24 03:54] VITALS: BP 138/68; PULSE 68; RESP 16; TEMP 36.2; O2SAT 94
[2025-07-24 06:47] VITALS: BP 152/66; PULSE 67; RESP 16; TEMP 36.6; O2SAT 93
[2025-07-24 07:14] LABS: INTERNATIONAL NORM RATIO 1.1 (0.9-1.1); Prothrombin Time 12.3 SEC (10.9-12.4)
[2025-07-24 07:34] LABS: Alanine Aminotransferase 534 U/L (0-31); Albumin Level 3.6 g/dL (3.5-5.0); Alkaline Phosphatase 392 U/L (39-117); Anion Gap 14 (12-20); Aspartate Amino Transferase 145 U/L (5-31); Blood Urea Nitrogen 7 mg/dL (9-16); Calcium 9.2 mg/dL (8.4-10.2); Carbon Dioxide 27 mmol/L (22-29); Chloride 104 mmol/L (96-108); Creatinine Clr Calc Pharmacy 97.5; Estimated Glomerular Filt Rate > 60; Potassium 3.9 mmol/L (3.3-5.1); Sodium 141 mmol/L (135-145); Total Protein 6.1 g/dL (6.5-8.0)
[2025-07-24] MEDS: buPROPion HCl XL 300 MG TAB.ER.24H PO (10:16)
[2025-07-24 10:17] VITALS: BP 160/74; PULSE 64
[2025-07-24] MEDS: buPROPion HCl XL 150 MG TAB.ER.24H PO (10:18)
[2025-07-24] MEDS: 0.9 % Sodium Chloride Flush 3 ML SYRINGE IVFLUSH (10:20)
[2025-07-24] MEDS: Milk of Magnesia 30 ML ORAL.SUSP PO (10:39)
--- NOTE | 2025-07-24 11:15 | P.DS_ITS ---
DS: Providers Provider Date of Service: 07/24/25 <Yasmin Tang PA-C - Last Filed: 07/25/25 14:38> Date of admission: 07/22/25 00:57 <Savanah Vega MD - Last Filed: 07/27/25 10:11> Date of discharge: 07/24/25 <Yasmin Tang PA-C - Last Filed: 07/25/25 14:38> Primary care physician: Libra Barone MD <Savanah Vega MD - Last Filed: 07/27/25 10:11> Attending physician on admission: Savanah Vega <Yasmin Tang PA-C - Last Filed: 07/25/25 14:38> Consults: 07/22/25 01:20 Consult to Gastroenterology Routine Consulting Provider: [facility] Reason for consultation: elevated lfts <Savanah Vega MD - Last Filed: 07/27/25 10:11> Attending physician on discharge: Savanah Vega <Yasmin Tang PA-C - Last Filed: 07/25/25 14:38> DS: Diagnosis Discharge Diagnosis (1) Transaminitis: Status: Acute <Savanah Vega MD - Last Filed: 07/27/25 10:11> DS: Summary Hospital Course Hospital Course: HPI AT ADMISSION: Sridevi Pruitt I is a 65 year old female who is known to myself and who underwent laparoscopic cholecystectomy 3 days ago for cholecystitis and who was discharged the next day doing well. She came in today because she had right upper quadrant pain that got very sharp and strong that she did not have the 1st 2 days postoperatively. She did have some nausea no vomiting no fevers no chills. She was able to eat however she has not had a bowel movement. She is urinating fine. Here in the emergency room her LFTs were noted to be extraordinarily elevated with her bilirubin at 2.2 and her AST and ALT 1200, 900 and her alk-phos elevated as well at 377. Her white blood count was normal. In the emergency room she had an ultrasound which showed her common bile duct to be elevated at 1.2 cm but no definitive stone was noted. CT scan of her abdomen and pelvis also showed that the common bile duct was enlarged in size up to 1.2 cm and that she had some intrahepatic biliary dilatation as well. A true stone was not noted in the distal common bile duct. The parenchyma of the liver looked fine there was no free fluid no evidence of a bile leak. She is interviewed with the help of the booster pump operator. HOSPITAL COURSE: Patient was admitted to the surgical service for further work up and management of her post operative pain. She was kept NPO, on IVF, trend LFTs, MRCP was ordered as well as GI consult. IV abx was initiated. She had marked improvement in regard to her abdominal symptoms and LFT's downtrended. GI felt most likely scenario is that of passage of a CBD stone. Her diet was advanced, IV abx stopped. On the day of discharge, she felt well and was tolerating a solid diet without nausea or vomiting, had resolution of her symptoms and was ambulating without difficulty. She was hemodynamically stable. Her abdomen was benign and soft, nontender. Her LFTs continue to improve. She felt ready for discharge. She was discharged to home on 07/24/25 in stable condition. She is to have outpatient LFTs later this week and follow up in the office. agree with above <Savanah Vega MD - Last Filed: 07/27/25 10:11> Time Attestation Discharge Coordination Time (in mins): 25 <Yasmin Tang PA-C - Last Filed: 07/25/25 14:38> Quality: Safe Use of Opioids Does Pt have an Active Cancer Diagnosis on the Problem List?: No <Yasmin Tang PA-C - Last Filed: 07/25/25 14:38> Quality: Stroke Does the patient have a stroke diagnosis?: No <Yasmin Tang PA-C - Last Filed: 07/25/25 14:38> Physical Exam Vital Signs: Vital Signs: Last Vital Signs Temp 97.9 F 07/24/25 06:47 Pulse 64 07/24/25 10:17 Resp 16 07/24/25 06:47 BP 160/74 H 07/24/25 10:17 Pulse Ox 93 07/24/25 06:47 O2 Del Method Room Air 07/24/25 06:47 O2 Flow Rate 2 07/22/25 08:00 BMI result Body Mass Index 33.8 <Savanah Vega MD - Last Filed: 07/27/25 10:11> Const: General: comfortable, no acute distress and alert <Yasmin Tang PA-C - Last Filed: 07/25/25 14:38> Orientation/consciousness: patient oriented x3 <Yasmin Tang PA-C - Last Filed: 07/25/25 14:38> Resp: Effort & Inspection: normal respiratory effort <AJ Greco Last Filed: 07/25/25 14:38> GI: Inspection: No distended <AJ Greco Last Filed: 07/25/25 14:38> Palpation (GI): Soft to palpation and nontender <Yasmin Tang PA-C - Last Filed: 07/25/25 14:38> Neuro: General: patient oriented x3 <AJ Greco Last Filed: 07/25/25 14:38> DS: Data Data Completed and Pending Labs on day of discharge: Laboratory Results - last 24 hr 07/24/25 06:44 Hold Purple Top SEE NOTE PT 12.3 INR 1.1 Sodium 141 Potassium 3.9 Chloride 104 Carbon Dioxide 27 Anion Gap 14 BUN 7 L Creatinine 0.57 Estim Creat Clear Calc 97.5 Estimated GFR > 60 Fasting Glucose 148 H Calcium 9.2 Total Bilirubin 1.5 H Direct Bilirubin 0.9 H AST 145 H ALT 534 H Alkaline Phosphatase 392 H Total Protein 6.1 L Albumin 3.6 <Savanah Vega MD - Last Filed: 07/27/25 10:11> Discharge Plan Discharge Anticipated Discharge Date/Time: 07/24/25 11:11 <Savanah Vega MD - Last Filed: 07/27/25 10:11> Patient Disposition: Home, Self-Care <Savanah Vega MD - Last Filed: 07/27/25 10:11> Discharge Diagnosis: cholecystitis <Savanah Vega MD - Last Filed: 07/27/25 10:11> cholecystitis <Yasmin Tang PA-C - Last Filed: 07/25/25 14:38> Referrals: Libra Barone MD [Primary Care Provider, Family Practice] - 1 Week <Savanah Vega MD - Last Filed: 07/27/25 10:11> Discharge Medications: Continued valsartan 80 mg tablet 80 mg PO DAILY metformin 500 mg tablet extended release 24 hr 500 mg PO DAILY bupropion HCl 300 mg tablet extended release 24 hr 300 mg PO DAILY fluticasone furoate [Arnuity Ellipta] 100 mcg/actuation blister with device 1 inh inhalation DAILY metoclopramide HCl [Reglan] 10 mg tablet 10 mg PO TID docusate sodium [Colace] 100 mg capsule 100 mg PO BID Qty: 30 0RF oxycodone 5 mg tablet 5 mg PO Q4H PRN (Reason: pain (scale score 7-10)) Qty: 26 0RF Rx Instructions: Partial Fill upon patient request. atenolol 25 mg tablet 25 mg PO DAILY fluticasone propionate 50 mcg/actuation spray,suspension 2 spray intranasal DAILY levothyroxine 75 mcg tablet 75 mcg PO DAILY@0630 sertraline 100 mg tablet 150 mg PO QAM bupropion HCl 150 mg tablet extended release 24 hr 150 mg PO DAILY rosuvastatin 20 mg tablet 20 mg PO BEDTIME dicyclomine 20 mg tablet 20 mg PO TID 30 Days Qty: 90 6RF pantoprazole 40 mg tablet,delayed release (DR/EC) 40 mg PO BID Qty: 60 6RF simethicone 180 mg capsule 180 mg PO QID Qty: 120 6RF hydrocortisone [Proctosol HC] 2.5 % cream with perineal applicator 1 appl PA BID Qty: 30 6RF Rx Instructions: BE SURE TO INCLUDE RECTAL APPICATOR!! <Savanah Vega MD - Last Filed: 07/27/25 10:11> Discharge Orders: Discharge Order (Routine); Ordered 07/24/25 Ordered By: Savanah Vega <Savanah Vega MD - Last Filed: 07/27/25 10:11> Activity on Discharge: No heavy lifting <Savanah Vega MD - Last Filed: 07/27/25 10:11> No heavy lifting <Yasmin Tang PA-C - Last Filed: 07/25/25 14:38> Stand Alone Forms: Patient Portal Discharge page <Savanah Vega MD - Last Filed: 07/27/25 10:11> Print Language: [place] <Savanah Vega MD - Last Filed: 07/27/25 10:11> Care Plan Goals: increase activity and diet tolerance <Savanah Vega MD - Last Filed: 07/27/25 10:11> Health Concerns: elevated lfts - improving and trending down. Patient to have outpatient LFTs evaluated the end of the week and then follow up with surgery next week If patient develops nausea and vomiting increased abdominal pain increasing jaundice the needs to come into the emergency room or call MD <Savanah Vega MD - Last Filed: 07/27/25 10:11> Plan of Treatment: Increase activity no lifting greater than 10 lb may shower with dressings on and then remove the dressings on Thursday. Low-fat diet <Savanah Vega MD - Last Filed: 07/27/25 10:11> Assessment: Overall doing well. <Savanah Vega MD - Last Filed: 07/27/25 10:11> Discharge Date/Time: 07/24/25 13:20 <Savanah Vega MD - Last Filed: 07/27/25 10:11>
--- NOTE | 2025-07-24 11:17 | MHC.CM.PN ---
Patient medically cleared for dc home w/ resumption of IMAGING NURSE services. IMAGING NURSE, Shobha, will transport home at 12:30. RN aware.
[2025-07-28 04:45] LABS: ~Hepatitis A Antibody IgG 3.06 S/CO (0.00-0.99)
[2025-07-28 15:24] LABS: Anti Nuclear Antibody Screen NEGATIVE (NEGATIVE)
== END 2025-07-24 13:20 | disposition home or self-care (01) | DRG 446 ==
LOC: HO.ED 20:23 → HO.EDOVER 07-22 01:06 → HO.S3 07-22 08:57
PROVIDERS: Internal Medicine; Physician Assistant; Admitting Provider Surgery; Emergency Provider Emergency Medicine; PCP Family Medicine; Visit Provider Surgery
DX: K80.50 Calculus of bile duct without cholangitis or cholecystitis without obstruction (principal); G89.18 Other acute postprocedural pain; Z79.51 Long term (current) use of inhaled steroids; Z79.84 Long term (current) use of oral hypoglycemic drugs; Z79.890 Hormone replacement therapy; Z79.899 Other long term (current) drug therapy
CPT/HCPCS: 36415; 74018; 74177; 74181; 76705; 80048; 80053; 80076; 80143; 81001; 82140; 83690; 85025; 85610; 85730; 86015; 86038; 86308; 86704; 86706; 86708; 86709; 86803; 87340; 94640; 99285; J1171; J2405; J2543; J7120; Q9967

== ENCOUNTER → 2025-07-21 19:34 | Outpatient (BNV) | payer OTHER, SELFPAY | PROVIDERS: Emergency Provider Emergency Medicine; PCP Family Medicine; Visit Provider Radiology Diagnostic Radiology | DX: R10.11 Right upper quadrant pain (principal); R74.01 Elevation of levels of liver transaminase levels; K83.8 Other specified diseases of biliary tract; Z90.49 Acquired absence of other specified parts of digestive tract | CPT/HCPCS: 74018; 74177; 76705 ==

== ENCOUNTER 2025-07-22 00:57 | Outpatient (BNV) | payer OTHER, SELFPAY | END 2025-07-22 08:26 | PROVIDERS: Admitting Provider Surgery; Emergency Provider Emergency Medicine; PCP Family Medicine; Visit Provider Radiology Diagnostic Radiology | DX: R94.5 Abnormal results of liver function studies (principal); Z90.5 Acquired absence of kidney | CPT/HCPCS: 74181 ==

== ENCOUNTER → 2025-07-22 00:57 | Outpatient (BNV) | payer OTHER, SELFPAY | PROVIDERS: Admitting Provider Surgery; Emergency Provider Emergency Medicine; PCP Family Medicine; Visit Provider Surgery | DX: R79.89 Other specified abnormal findings of blood chemistry (principal) | CPT/HCPCS: 99024 ==

== ENCOUNTER 2025-07-27 20:29 | Inpatient (IN) | payer OTHER, SELFPAY ==
--- NOTE | ~2025-07-27 | FL_ITS ---
EXAMINATION: FL GUIDANCE ONLY HISTORY: ERCP COMPARISON: Correlation is made with a CT of the abdomen with contrast dated 07/28/2025. TECHNIQUE: Fluoroscopy time: 3 minutes, 38.5 seconds. Cumulative Dose: 53.532 mGy. DAP: 23.285 mGym2 Images: 2. FINDINGS: Fluoroscopic images from an ERCP demonstrate opacification of the common bile duct which is normal in caliber. A wire is also seen in the common bile duct. No intraluminal filling defects are identified. FL/FL guidance in OR IMPRESSION: Fluoroscopy during procedure. Please see procedure report for additional information. Electronically signed by: Ronak Adair MD 07/28/2025 02:45 PM EDT
--- NOTE | ~2025-07-27 | CT_ITS ---
CLINICAL HISTORY: upper abdominal pain, recent cholecystectomy CT abdomen and pelvis with contrast Comparison: CT - CT ABDOMEN PELVIS W IV CON - 07/28/25 01:[address]/REG/SR - CT ABDOMEN PELVIS W IV CON - 07/21/25 22:07 EDT Findings: The lung bases are clear. Gallbladder is surgically absent. Calcification of the liver represents prior granulomatous disease. No focal hepatic lesion identified. Pancreas, spleen and adrenal glands are within normal limits. Kidneys enhance symmetrically and are non hydronephrotic. No bowel obstruction, pneumoperitoneum, or pneumatosis. Sigmoid diverticulosis is present without CT evidence of diverticulitis. Visualized appendix is normal. 2 x 2.5 cm circumscribed fat containing structures in the uterus, uterine lipoma unchanged since prior. The bones are intact. IMPRESSION: No acute findings. This document has been electronically signed by: Oleg Marie MD, PHD on 07/28/2025 04:28:34
[2025-07-27 20:32] VITALS: BP 142/61; PULSE 65; RESP 16; TEMP 36.6; O2SAT 97; BMI 32.4
[2025-07-27 20:52] LABS: MANUAL DIFF FLAG NO
[2025-07-27 21:22] LABS: Alanine Aminotransferase 324 U/L (0-31); Albumin Level 4.1 g/dL (3.5-5.0); Alkaline Phosphatase 733 U/L (39-117); Anion Gap 12 (12-20); Aspartate Amino Transferase 331 U/L (5-31); Blood Urea Nitrogen 13 mg/dL (9-16); Calcium 9.3 mg/dL (8.4-10.2); Carbon Dioxide 29 mmol/L (22-29); Chloride 103 mmol/L (96-108); Creatinine Clr Calc Pharmacy 72.4; Estimated Glomerular Filt Rate > 60; Lipase 397 U/L (8-78); Potassium 4.2 mmol/L (3.3-5.1); Sodium 140 mmol/L (135-145); Total Protein 7.0 g/dL (6.5-8.0)
--- OUTSIDE RECORDS SUMMARY | 2025-07-27 21:24 | XMS_ITS | Encounter Summary ---
Author Organization [employer] Address [address] [facility] 7t [place] [address] Care Team Providers Care Production Material Handler Name Role Phone Libra Barone MD Primary Care Provider [phone]- [phone] Malu Medina PharmD Unavailable [phone] Tamie Vega OD Unavailable February Unavailable Reason for Visit * Reason Onset Date Comments Med Refill 05/09/2025 Encounter Details Date Type Department Care Team ([facility] Contact Info) Description 05/09/2025 Telephone [facility] [address] [place], [place] [phone] Libra Barone MD [address] [place], [place] [phone] Med Refill Social History Tobacco Use Types [...] 05/09/2025 2:07 PM EDT Medication sent to [facility] on 01/30/25 #90 with 3 refills. * Telephone Encounter - Celestino Ortega - 05/09/2025 1:56 PM EDT TC from pt requesting medication refill. Medications needing refill : levothyroxine (Synthroid, Levoxyl) 75 MCG tablet To be sent to: [facility] - [place], [place] - [address] [facility] documented in this encounter Plan of Treatment Upcoming Encounters Date Type Department Care Team (Late st Contact Info) Description 08/09/2025 9:00 AM EDT Office Visit [facility] [address] [place] [address] Libra Barone MD [address] [place] [address] documented as of this encounter Goals Goal [...] documented as of this encounter Care Teams Production Material Handler Relationship Specialty Start Date End Date Libra Barone MD [address] [place] [phone] PCP - General Family Medicine 11/23/18 Malu Medina, PharmD [address] [place] [address] Pharmacist Internal Medicine 05/09/24 Tamie Vega OD [address] [place] [address] Optometry 02/16/25 Ming Tanya [address] [place] [address] 3[address] [place] [address] Gastroenterology 04/20/25 documented as of this encounter
--- OUTSIDE RECORDS SUMMARY | 2025-07-27 21:24 | XMS_ITS | Encounter Summary ---
Author Organization [employer] Address [address] [facility] 7t [place] [address] Care Team Providers Care Security Patrol Driver Name Role Phone Libra Barone MD Primary Care Provider [phone]- [phone] Malu Medina PharmD Unavailable [phone] Tamie Vega OD Unavailable February Unavailable Reason for Visit * Reason Onset Date Comments Pharmacy CH[facility] 08/19/2024 Encounter Details Date Type Department Care Team ([facility] Contact Info) Description 08/19/2024 Telephone [facility] [address] [place], [place] [phone] Libra Barone MD [address] [place], [place] [phone] Pharmacy [facility] Social History Tobacco Use Types [...] Description 08/09/2025 9:00 AM EDT Office Visit [facility] [address] [place] [address] Libra Barone MD [address] [place] [address] documented as of this encounter Goals Goal [...] documented as of this encounter Care Teams Security Patrol Driver Relationship Specialty Start Date End Date Libra Barone MD [address] [place] [address] PCP - General Family Medicine 11/23/18 Malu Medina, Becky [address] [place] [address] Pharmacist Internal Medicine 05/09/24 Tamie Vega OD [address] [place] [address] Optometry 02/16/[address] 3rd [place] [address] Gastroenterology 04/20/25 documented as of this encounter
--- OUTSIDE RECORDS SUMMARY | 2025-07-27 21:24 | XMS_ITS | Encounter Summary ---
Author Organization [employer] Address [address] [facility] 7t [place] [address] Care Team Providers Care Business Center Representative Name Role Phone Libra Baroen MD Primary Care Provider [phone]- [phone] Malu Medina PharmD Unavailable Tamie Vega OD Unavailable [phone] February Unavailable Encounter Details Date Type Department Care Team (Latest Contact Info) Description 03/14/2019 Abstract [facility] CONVERSIONS Dental, Provider, DDS Social History [...] Description 08/09/2025 9:00 AM EDT Office Visit [facility] [address] [place] [address] Libra Barone MD 230 [place] [address] documented as of this encounter Visit Diagnoses Not on filedocumented in this encounter Care Teams Business Center Representative Relationship Specialty Start Date End Date Libra Barone MD [address] [place], [place] [phone] PCP - General Family Medicine 11/23/18 Malu Medina, LisaD [address] [place] [address] Pharmacist Internal Medicine 05/09/24 Tamie Vega OD [address] [place] [address] Optometry 02/16/[address] [place] [address] 3rd [place] [address] Gastroenterology 04/20/25 documented as of this encounter
--- OUTSIDE RECORDS SUMMARY | 2025-07-27 21:24 | XMS_ITS | Encounter Summary ---
Author Organization [employer] Address [address] [facility] 7t [place] [address] Care Team Providers Care Reaming Press Operator Name Role Phone Libra Barone MD Primary Care Provider [phone]- [phone] Malu Medina PharmD Unavailable [phone] Tamie Vega OD Unavailable February Unavailable Encounter Details Date Type Department Care Team (Latest Contact Info) Description 03/25/2021 Abstract [facility] CONVERSIONS Dental, Provider, DDS Social History [...] Description 08/09/2025 9:00 AM EDT Office Visit [facility] [address] [place] [address] Libra Barone MD [address] [place] [address] documented as of this encounter Visit Diagnoses Not on filedocumented in this encounter Care Teams Reaming Press Operator Relationship Specialty Start Date End Date Libra Barone MD [address] [place], [place] [phone] PCP - General Family Medicine 11/23/18 Malu Medina, LisaD [address] [place] [address] Pharmacist Internal Medicine 05/09/24 Tamie Vega OD [address] [place] [address] Optometry 02/16/[address] [place] [address] 3rd [place] [address] Gastroenterology 04/20/25 documented as of this encounter
--- OUTSIDE RECORDS SUMMARY | 2025-07-27 21:24 | XMS_ITS | Encounter Summary ---
Author Organization [employer] Address [address] [facility] 7t [place] [address] Care Team Providers Care Network Design Architect Name Role Phone Libra Barone MD Primary Care Provider [phone] Malu Medina PharmD Unavailable Tamie Vega OD Unavailable [phone] February Unavailable Reason for Visit * Reason Onset Date Comments Appointment Request 08/22/2024 Encounter Details Date Type Department Care Team ([facility] Contact Info) Description 08/22/2024 Telephone [facility] 230 [place], [place] [phone] Libra Barone MD [address] [place], [place] [phone] Appointment Request Social History Tobacco Use Types [...] Description 08/09/2025 9:00 AM EDT Office Visit [facility] [address] [place] [address] Libra Barone MD [address] [place] [address] documented as of this encounter Goals Goal [...] documented as of this encounter Care Teams Network Design Architect Relationship Specialty Start Date End Date Libra Barone MD [address] [place] [address] PCP - General Family Medicine 11/23/18 Malu Medina, Becky [address] [place], [place] [phone] Pharmacist Internal Medicine 05/09/24 Tamie Vega OD [address] [place] [address] Optometry 02/16/25February [address] [place] [address] 3rd [place] [address] Gastroenterology 04/20/25 documented as of this encounter
--- OUTSIDE RECORDS SUMMARY | 2025-07-27 21:24 | XMS_ITS | Encounter Summary ---
Author Organization [employer] Address [address] [facility] 7t [place] [address] Care Team Providers Care Lead Warehouse Associate Name Role Phone Libra Barone MD Primary Care Provider [phone]- [phone] Malu Medina PharmD Unavailable [phone] Tamie Vega OD Unavailable February Unavailable Encounter Details Date Type Department Care Team (Latest Contact Info) Description 10/09/2022 Abstract [facility] CONVERSIONS Dental, Provider, DDS Social History [...] Description 08/09/2025 9:00 AM EDT Office Visit [facility] [address] [place] [address] Libra Barone MD [address] [place] [address] documented as of this encounter Visit Diagnoses Not on filedocumented in this encounter Care Teams Lead Warehouse Associate Relationship Specialty Start Date End Date Libra Barone MD [address] [place], [place] [phone] PCP - General Family Medicine 11/23/18 Malu Medina, LisaD [address] [place] [address] Pharmacist Internal Medicine 05/09/24 Tamie Vega OD [address] [place] [address] Optometry 02/16/[address] [place] [address] 3rd [place] [address] Gastroenterology 04/20/25 documented as of this encounter
--- OUTSIDE RECORDS SUMMARY | 2025-07-27 21:25 | XMS_ITS | Encounter Summary ---
Author Organization [employer] Address [address] [facility] 7t [place] [address] Care Team Providers Care Sports Book Writer Name Role Phone Libra Barone MD Primary Care Provider [phone] Malu Medina PharmD Unavailable Tamie Vega OD Unavailable [phone] February Unavailable Reason for Visit * Reason Onset Date Comments Appointment Request 01/02/2025 Encounter Details Date Type Department Care Team ([facility] Contact Info) Description 01/02/2025 Telephone [facility] [address] [place], [place] [phone] Libra Barone MD [address] [place], [place] [phone] Appointment Request Social History Tobacco Use Types [...] Description 08/09/2025 9:00 AM EDT Office Visit [facility] [address] [place] [address] Libra Barone MD [address] [place] [address] documented as of this encounter Goals Goal Patient Goal Type Associated Problems Recent Progress Patient-Stated? Author Blood Pressure < 140/90 Blood Pressure 118/76(2024 3:15 PM EDT) No JassMalu Padilla, PharmD Hemoglobin A1c < 7 Result Component 7.2( 8:51 AM EDT) No Malu Mckinnon, PharmD documented as of this encounter Visit Diagnoses Not on filedocumented in this encounter Additional Health Concerns Assessment Noted Time PHQ-9 Depression Total Score: 0 04/20/20 24 3:44 PM EDT documented as of this encounter Care Teams Sports Book Writer Relationship Specialty Start Date End Date Libra Barone MD [address] [place] [address] PCP - General Family Medicine 11/23/18 Malu Medina, LisaD [address] [place] [address] Pharmacist Internal Medicine 05/09/24 Tamie Vega OD [address] [place] [phone] Optometry 02/16/[address] [place] [address] 3rd [place] [address] Gastroenterology 04/20/25 documented as of this encounter
--- OUTSIDE RECORDS SUMMARY | 2025-07-27 21:25 | XMS_ITS | Encounter Summary ---
Author Organization [employer] Address [address] [place] [address] Care Team Providers Care Training And Development Professional Name Role Phone Libra Barone MD Primary Care Provider [phone]- [phone] Malu Medina PharmD Unavailable [phone] Tamie Vega OD Unavailable [phone] February Unavailable Encounter Details Date Type Department Care Team ([facility] Contact Info) Description 07/22/2025 Orders Only [facility] External Provider, [facility] Social History Tobacco Use Types Packs/Day Years [...] Description 08/09/2025 9:00 AM EDT Office Visit [facility] [address] [place], [place] [phone] Libra Barone MD [address] [place], [place] [phone] documented as of this encounter Goals Goal Patient Goal Type Associated Problems Recent Progress Patient-Stated? Author Blood Pressure < 140/90 Blood Pressure 118/76(2024 3:15 PM EDT) No Piers-Gambl e, Malu, PharmD Hemoglobin A1c < 7 Result Component 7.2( 8:51 AM EDT) No Jass-Gambl jeff, Malu, PharmD documented as of this encounter Procedures Procedure Name Priority Date/Time Associated Diagnosis Comments MR MRCP Routine 07/22/2025 10:17 AM EDT documented in this encounter Results * MR MRCP (07/22/2025 10:17 AM EDT) Anatomical Region Laterality Modality Lower Extremities Left Magnetic Reson ance 07/22/2025 10:1 7 AM EDT Narrative 07/22/2025 10:19 AM EDT [address] [address] Magnetic Resonance Report Signed Patient: Sridevi Pruitt I MR#: [id number] [id number] : 1960 Acct:[id number] Age/Sex: 65 / F ADM Date: 07/22/25 Loc: HO.S3 346-[address]: Savanah Vega MD Ordering Physician: Savanah Vega MD Date of Service: 07/22/25 Procedure(s): MR MRCP Accession Number(s): [id number] cc: Libra Barone MD; Savanah Vega MD CLINICAL HISTORY: elvated lfts --- Additional Notes or Special Instructions: pt 4 days sp lap rita MRCP without gadolinium Comparison: US - US ABDOMEN LIMITED - 07/21/25 22:[address]/REG/SR - CT ABDOMEN PELVIS W IV CON - 07/21/25 22:07 EDT Findings: The patient is status post cholecystectomy. Minor postoperative changes are noted. There is mild intrahepatic biliary ductal dilatation. There is dilatation of the common hepatic duct measuring up to 1.1 cm in diameter. The common bile duct is normal in caliber. An obstructing calculus or mass is not identified. Unremarkable solid organs. Visualized bowel is unremarkable. The bones and soft tissues demonstrate no acute abnormalities. IMPRESSION: Status post cholecystectomy. Mild intrahepatic biliary ductal dilatation and mild dilatation of the common hepatic duct. No obstructing calculus or mass is demonstrated. This document has been electronically signed by: Cristobal Saucedo MD on 07/22/2025 10:17:43 Dictated By: Cristobal Saucedo MD Signed By: <Electronically signed by Cristobal Saucedo MD in [place]> 07/22/25 1018 DD/ 1017 TD/TT: 07/22/25 1017 Bicycle Ii Assembler: Procedure Note Donotuseinterpreter, Image - 07/22/2025 [place] [id number] Magnetic Resonance Report Signed Patient: Sridevi Pruitt IMR#: [id number] : 9Acct:[id number] Age/Sex: 65 / FADM Date: 07/22/25 Loc: HORyS3 346-[address]: Savanah Vega MD Ordering Physician: Savanah Vega MD Date of Service: 07/22/25 Procedure(s): MR MRCP Accession Number(s): [id number] cc: Libra Barone MD; Savanah Vega MD CLINICAL HISTORY: elvated lfts --- Additional Notes or SpecialInstructions: pt 4 days sp lap rita MRCP without gadolinium Comparison: US - US ABDOMEN LIMITED - 07/21/25 22:[address]/REG/SR - CT ABDOMEN PELVIS W IV CON - 07/21/25 22:07 EDT Findings: The patient is status post cholecystectomy. Minor postoperative changes are noted. There is mild intrahepatic biliary ductal dilatation. There is dilatation of the common hepatic duct measuring up to 1.1 cm in diameter. The common bile duct is normal in caliber. An obstructing calculus or mass is not identified. Unremarkable solid organs. Visualized bowel is unremarkable. The bones and soft tissues demonstrate no acute abnormalities. IMPRESSION: Status post cholecystectomy. Mild intrahepatic biliary ductal dilatation and mild dilatation of the common hepatic duct. No obstructing calculus or mass is demonstrated. This document has been electronically signed by: Cristobal Saucedo MD on 07/22/2025 10:17:43 Dictated By: Cristobal Saucedo MD Signed By: <Electronically signed by Cristobal Saucedo MD in [place]> 07/22/25 1018 DD/ 1017 TD/TT: 07/22/25 1017 Bicycle Ii Assembler: [facility] External Provider IMG MRI PROCEDURES Final Result documented in this encounter Visit Diagnoses Not on filedocumented in this encounter Additional Health Concerns Assessment Noted Time PHQ-9 Depression Total Score: 0 04/20/20 24 3:44 PM EDT documented as of this encounter Care Teams Training And Development Professional Relationship Specialty Start Date End Date Libra Barone MD [address] [place] [address] PCP - General Family Medicine 11/23/18 Malu Medina, LisaD [address] [place] [address] Pharmacist Internal Medicine 05/09/24 Tamie Vega OD [address] [place] [id number] Optometry 02/16/25 Ming February [address] [place] [address] [address] [place] [address] Gastroenterology 04/20/25 documented as of this encounter
--- OUTSIDE RECORDS SUMMARY | 2025-07-27 21:25 | XMS_ITS | Clinical Summary ---
Author Organization [employer] Address [address] [facility] [address] [place] [address] Care Team Providers Care Operations Support Professionals Name Role Phone Libra Barone MD Primary Care Provider +- [phone] Malu Medina PharmD Unavailable Tamie Vega OD Unavailable February Unavailable Allergies [...] be different from the original. Enrolled in [facility] DM clinic with Malu Medina, LisaD, [facility] Problem Noted Date Diagnosed Date Right upper quadrant abdominal pain 07/26/2025 Overview (07/26/2025): Seen In ER after cholecystectomy postop day 3 lap rita uncomplicated went home pain-free. Develop pain after a meal. Has transaminitis and elevated bilirubin. Upper abdominal pain nausea. Dilated CBD. No leukocytosis fever or hemodynamic instability. No sepsis criteria met. Consultation with General surgery and Gastroenterology. Recommended for MRCP, radiology ultrasound and CT abdomen which we will get. Oral herpes simplex infection 03/28/2025 Overview (03/28/2025): [...] loss 06/22/2024 Overview (06/22/2024): -Abnormal audiogram at [facility] 05/2024 -ENT referral placed 06/22/24 Assessment & Plan (04/19/2025 2:34 PM EDT): -Abnormal audiogram at [facility] 05/2024 -ENT referral placed 06/22/24 History of postmenopausal bleeding 06/22/2024 Overview (04/19/2025): Seen by Dr. Alonso at [facility] 73/. -co testing done, recommended ultrasound to measure [...] 1.7-2.7 cm. Recommended to Gyne Onc consult [employer] Condition[employer] Installer Onc referral for a consult placed by Dr. Alonso 09/08/24 Seen by senior operations analyst 09/21/24 MRI recommended and possible surery in the future. Follow up after MRI. (Auto Air Conditioning Installer noted does not have location of signature of provider) -Saw MATERIAL CREW SUPERVISOR at [facility] 09/21 for intake and a Televist 10/10/24. Per note by Dr. Rosanna Lowe who noted size and growth is stable dating back to 2020, recommending annual pelvic US. Assessment & Plan (04/19/2025 2:45 PM EDT): Seen by Dr. Alonso at [facility] 330/. -co testing done, recommended ultrasound to measure [...] 1.7-2.7 cm. Recommended to Gyne Onc consult [employer] Air Conditioning Installer Onc referral for a consult placed by Dr. Alonso 09/08/24 Seen by senior operations analyst 09/21/24 MRI recommended and possible surery in the future. Follow up after MRI. (Auto Air Conditioning Installer noted does not have location of signature of provider) -Saw MATERIAL CREW SUPERVISOR at [facility] 09/21 for intake and a Televist 10/10/24. [...] due after 04/19/26 -eye care facilitated by [facility] -dental home is [facility] -health care proxy given and filed 04/19/25 Assessment & Plan (04/19/2025 2:32 PM EDT): -next comprehensive annual evaluation due after 04/19/26 -eye care facilitated by [facility] -dental home is [facility] -health care proxy given and filed [...] Encounters Date Type Department Care Team Description 07/22/2025 Orders Only [facility] External Provider, [facility] 07/21/2025 Orders Only GENERIC EXTERNAL DATA DEPARTMENT Provider, Generic External Data 07/20/2025 Patient Outreach [facility] [address] [place] [address] Libra Barone MD Transition Of Care (Tcm) (HDF scheduled. ) 07/20/2025 Telephone [facility] [address] [place] [phone] Libra Barone MD Medication Question 07/18/2025 Orders Only GENERIC EXTERNAL DATA DEPARTMENT Provider, Generic External Data Abdominal pain, unspecified abdominal location (Primary Dx) 07/13/2025 Refill [facility] [address] [place] [phone] Malu Medina, LisaD Benign hypertension 06/26/2025 Orders Only [facility] [address] [place] [phone] Libra Barone MD 06/23/2025 Telephone [facility] [address] [place] [phone] Libra Barone MD 05/30/2025 Refill [facility] [address] [place] [phone] Libra Barone MD Mild intermittent asthma without complication; High blood sugar 05/22/2025 Travel 05/18/2025 Orders Only [facility] [address] [place] [phone] Sue Coats MD 05/09/2025 Telephone [facility] [address] [place] [address] Libra Barone MD Med Refill 05/08/2025 Refill [facility] [address] [place] [address] Libra Barone MD Oral herpes simplex infection 04/28/2025 Refill [facility] [address] [place] [address] Libra Barone MD Diabetes mellitus without complication ([facility]/HCC) 04/28/2025 Refill [facility] [address] [place] [phone] Libra Barone MD Diabetes mellitus without complication ([facility]/HCC) from Last 3 Months Immunizations Immunization Administration [...] Description 08/09/2025 9:00 AM EDT Office Visit [facility] [address] [place] [address] Libra Barone MD [address] [place] [address] Health Maintenance Due Date Last Done Comments [...] 07/19/2025 025, 01/11/2025, 09/28/2024, Additional history exists COVID-19 Vaccine ( season) 2025 05/20/2021, 04/10/2021 Influenza Vaccine (#1) 2025 , 08/19/2023, 08/28/2022, Additional history exists Dental X-Ray: Full Mouth 10/10/2025 022, 02/28/2021, 02/02/2019, Additional history exists Dental X-Ray: Bitewings 12/23/2025 12/22/19 25, 11/08/2024, 12/17/2023, Additional history exists SDOH Screening 01/17/2026 01/17/2025 Alcohol/Substance Use Screening 01/26/2026 01/26/2025 Diabetes: Urine Protein Screening 04/18/2026 04/18/2025, 08/21/2023, [...] Procedure Name Priority Date/Time Associated Diagnosis Comments MRCP Routine 07/22/2025 10:17 AM EDT US ABDOMEN LIMITED Routine 07/21/2025 11 :[address] ABDOMEN PELVIS W CONTRAST Routine 07/21/2025 11:28 PM EDT APTT Routine 07/21/2025 9:11 PM EDT PROTHROMBIN TIME-INR Routine 07/21/2025 9:11 PM EDT XR KUB AND UPRIGHT 2 VIEWS Routine [...] Recently Relevant to Health Maintenance Results * MR MRCP (07/22/2025 10:17 AM EDT) Anatomical Region Laterality Modality Lower Extremities Left Magnetic Reson ance 07/22/2025 10:1 7 AM EDT Narrative 07/22/2025 10:19 AM EDT [address] [address] Magnetic Resonance Report Signed Patient: Sridevi Pruitt I MR#: [id number] 2336 : 1960 Acct:[id number] Age/Sex: 65 / F ADM Date: 07/22/25 Loc: HO.S3 346-[address]: Savanah Vega MD Ordering Physician: Savanah Vega MD Date of Service: 07/22/25 Procedure(s): MR MRCP Accession Number(s): [id number] cc: Libra Barone MD; Savanah Vega MD [...] 07/22/25 1018 DD/ 1017 TD/TT: 07/22/25 1017 Contact Finger Assembler: Procedure Note Donotuseinterpreter, Image - 07/22/[address] [address] Magnetic Resonance Report Signed Patient: Sridevi Pruitt IMR#: [id number] 2336 : 9Acct:[id number] Age/Sex: 65 / FADM Date: 07/22/25 Loc: HO.S3 346-[address]: Savanah Vega MD Ordering Physician: Savanah Vega MD Date of Service: 07/22/25 Procedure(s): MR MRCP Accession Number(s): [id number] cc: Libra Barone MD; Savanah Vega MD [...] 07/22/25 1018 DD/ 1017 TD/TT: 07/22/25 1017 Contact Finger Assembler: us [facility] External Provider IMG MRI PROCEDURES Final Result * US Abdomen Limited (07/21/2025 11:46 PM EDT) Only the most recent of2 resultswithin the time period is included. Anatomical Region Laterality Modality Abdomen Ultrasound 07/21/2025 11:4 6 PM EDT Narrative 07/21/2025 11:48 PM EDT [address] [address] Ultrasound Report Signed Patient: Sridevi Pruitt I MR#: [id number] 2336 : 1960 Acct:[id number] Age/Sex: 65 / F ADM Date: 07/21/25 Loc: HO.ED Attending Dr: Ordering Physician: Noel Ch MD Date of Service: 07/21/25 Procedure(s): US abdomen limited Accession Number(s): [id number] cc: Libra Barone MD; Noel Ch MD CLINICAL HISTORY: RUQ pain. s p lap rita. New transaminitis US abdomen limited Comparison: CT/REG/SR - CT ABDOMEN PELVIS W IV CON - 07/21/25 22:07 EDT Findings: Limited visualization of the pancreas due to bowel gas. The partially visualized inferior vena cava is unremarkable. The liver is normal in size and echotexture. There is mild intrahepatic bile duct dilatation. The common duct is 7-12 mm in diameter. Status post cholecystectomy. No fluid collection seen in the gallbladder fossa. The main portal vein is antegrade. The right kidney is 10.4 cm in length. No ascites. IMPRESSION: Status post cholecystectomy. No fluid collection seen in the gallbladder fossa. Postsurgical dilation of the common bile duct up to 12 mm. No sonographic evidence of common bile duct stones. This document has been electronically signed by: Chris Alcazar MD on 07/21/2025 23:46:34 Dictated By: Chris Alcazar MD Signed By: <Electronically signed by Chris Alcazar MD in OV> 07/21/252346 DD/ 45 TD/TT: 07/21/252345 Contact Finger Assembler: Procedure Note Donotuseinterpreter, Image - 07/21/2025 [place] [address] Ultrasound Report Signed Patient: Sridevi Pruitt IMR#: [id number] 2336 : 1960cct:[id number] Age/Sex: 65 / FADM Date: 07/21/25 Loc: HO.ED Attending Dr: Ordering Physician: Noel Ch MD Date of Service: 07/21/25 Procedure(s): US abdomen limited Accession Number(s): [id number] cc: Libra Barone MD; Noel Ch MD CLINICAL HISTORY: RUQ pain. s p lap rita. New transaminitis US abdomen limited Comparison: CT/REG/SR - CT ABDOMEN PELVIS W IV CON - 07/21/25 22:07 EDT Findings: Limited visualization of the pancreas due to bowel gas. The partially visualized inferior vena cava is unremarkable. The liver is normal in size and echotexture. There is mild intrahepatic bile duct dilatation. The common duct is 7-12 mm in diameter. Status post cholecystectomy. No fluid collection seen in the gallbladder fossa. The main portal vein is antegrade. The right kidney is 10.4 cm in length. No ascites. IMPRESSION: Status post cholecystectomy. No fluid collection seen in the gallbladder fossa. Postsurgical dilation of the common bile duct up to 12 mm. No sonographic evidence of common bile duct stones. This document has been electronically signed by: Chris Alcazar MD on 07/21/2025 23:46:34 Dictated By: Chris Alcazar MD Signed By: <Electronically signed by Chris Alcazar MD in OV> 07/21/252346 DD/ 45 TD/TT: 07/21/252345 Contact Finger Assembler: us [facility] External Provider IMG US PROCEDURES Edited Result - Final * CT Abdomen Pelvis w/ Contrast (07/21/2025 11:28 PM EDT) Anatomical Region Laterality Modality Body, Pelvis, Abdomen Computed T omography 07/21/2025 11:2 8 PM EDT Narrative 07/21/2025 11:30 PM EDT [place] [address] CT Scan Report Signed Patient: Sridevi Pruitt I MR#: [id number] 2336 : 1960 Acct:[id number] Age/Sex: 65 / F ADM Date: 07/21/25 Loc: HO.ED Attending Dr: Ordering Physician: Noel Ch MD Date of Service: 07/21/25 Procedure(s): CT abdomen pelvis w IV con Accession Number(s): [id number] cc: Libra Barone MD; Noel Ch MD Report Number: [id number]: Total DLP = 638.00 mGy-cm CLINICAL HISTORY: upper abd pain, post op lap rita, transaminitis CT abdomen and pelvis with contrast Comparison: CR - XR KUB - 07/21/25 19:50 EDT US/NV/SR - US ABDOMEN LIMITED - 07/18/25 09:47 EDT Findings: The lung bases are clear. Status post interval cholecystectomy with postsurgical intrahepatic and extrahepatic biliary tree dilation with the common bile duct measuring 1.2 cm. No radiopaque biliary tree stones seen. Solid organs unremarkable. Portal and mesenteric veins are patent. Diverticulosis without evidence of diverticulitis. No bowel obstruction, pneumoperitoneum, or pneumatosis. Uterine lipoma. Bilateral adnexae unremarkable. Urinary bladder underdistended, limiting evaluation. Normal appendix. Postsurgical midline abdominal change. The bones are intact. IMPRESSION: Status post interval cholecystectomy with postsurgical intrahepatic and extrahepatic biliary tree dilation with common bile duct measuring 1.2 cm. No radiopaque biliary tree stones. Portal and mesenteric veins are patent. This document has been electronically signed by: Chris Alcazar MD on 07/21/2025 23:28:41 Dictated By: Chris Alcazar MD Signed By: <Electronically signed by Chris Alcazar MD in OV> 07/21/252328 DD/ 27 TD/TT: 07/21/252327 Contact Finger Assembler: Procedure Note Donotuseinterpreter, Image - 07/21/[address] [address] [address] Scan Report Signed Patient: Sridevi Pruitt [facility]#: [id number] 2336 : 9Acct:[id number] Age/Sex: 65 / FADM Date: 07/21/25 Loc: HO.ED Attending Dr: Ordering Physician: Noel Ch MD Date of Service: 07/21/25 Procedure(s): CT abdomen pelvis w IV con Accession Number(s): [id number] cc: Libra Barone MD; Noel Ch MD Report Number: [id number]: Total DLP = 638.00 mGy-cm CLINICAL HISTORY: upper abd pain, post op lap rita, transaminitis CT abdomen and pelvis with contrast Comparison: CR - XR KUB - 07/21/25 19:50 EDT US/NV/SR - US ABDOMEN LIMITED - 07/18/25 09:47 EDT Findings: The lung bases are clear. Status post interval cholecystectomy with postsurgical intrahepatic and extrahepatic biliary tree dilation with the common bile duct measuring 1.2 cm. No radiopaque biliary tree stones seen. Solid organs unremarkable. Portal and mesenteric veins are patent. Diverticulosis without evidence of diverticulitis. No bowel obstruction, pneumoperitoneum, or pneumatosis. Uterine lipoma. Bilateral adnexae unremarkable. Urinary bladder underdistended, limiting evaluation. Normal appendix. Postsurgical midline abdominal change. The bones are intact. IMPRESSION: Status post interval cholecystectomy with postsurgical intrahepatic and extrahepatic biliary tree dilation with common bile duct measuring 1.2 cm. No radiopaque biliary tree stones. Portal and mesenteric veins are patent. This document has been electronically signed by: Chris Alcazar MD on 07/21/2025 23:28:41 Dictated By: Chris Alcazar MD Signed By: <Electronically signed by Chris Alcazar MD in OV> 07/21/252328 DD/ 27 TD/TT: 07/21/252327 Contact Finger Assembler: [facility] External Provider IMG CT PROCEDURES Edited Result - Final * Partial Thromboplastin Time, Activated (APTT) (07/21/2025 9:11 PM EDT) Partial Thromboplastin Time 28.8 26.7 - 34.1 SEC [facility] 07/21/2025 9:11 PM EDT 07/21/2025 9:19 PM EDT Generic External Data Provider LAB BLOOD ORDERAB LES Final Result [facility] [address] [place] [phone] * Prothrombin Time-INR (07/21/2025 9:11 PM EDT) Prothrombin Time 11.9 10.9 - 12.4 SEC [facility] INTERNATIONAL NORM RATIO 1.0 0.9 - 1.1 [facility] Comment:INTERNATIONAL NORMAL IZED RATIO (INR) REFERENCE RANGES Reference RangeFor patients not on anticoagulant therapy: 0.9 - 1.1INR ranges for oral anticoagulanttherapy:For prevention and treatment of venous thrombosis and pulmonary embolism: 2.0 - 3.0For acute myocardial infarction with aspirin therapy: 2.0 - 3.0For acute myocardial infarction without aspirin therapy: 3.0 - 4.0For patients with mechanical prosthetic heart valves: 2.5 - 3.5 07/21/2025 9:11 PM EDT 07/21/2025 9:19 PM EDT us Generic External Data Provider LAB BLOOD ORDERAB LES Final Result Performing Organization Address City/State/[facility] Co de Phone Number [facility] [address] [place] [phone] * XR KUB and Upright 2 Views (07/21/2025 8:11 PM EDT) Anatomical Region Laterality Modality Radiographic Courtney ging 07/21/2025 8:11 PM EDT Narrative 07/21/2025 8:13 PM EDT [address] [address] XRay Report Signed Patient: Sridevi Pruitt I MR#: [id number] 2336 : 1960 Acct:[id number] Age/Sex: 65 / F ADM Date: 07/21/25 Loc: .ED Attending Dr: Ordering Physician: Lester Santos Date of Service: 07/21/25 Procedure(s): XR KUB Accession Number(s): [id number] cc: Libra Barone MD; Lester Santos CLINICAL [...] in OV> 07/21/252011 DD/ 10 TD/TT: 07/21/252010 Contact Finger Assembler: Procedure Note Donotuseinterpreter, Image - 07/21/2025 [place] [address] XRay Report Signed Patient: Sridevi Pruitt IMR#: [id number] : 9Acct:[id number] Age/Sex: 65 / FADM Date: 07/21/25 Loc: .ED Attending Dr: Ordering Physician: Lester Santos Date of Service: 07/21/25 Procedure(s): XR KUB Accession Number(s): [id number] cc: Libra Barone MD; Lester Santos CLINICAL [...] in OV> 07/21/252011 DD/ 10 TD/TT: 07/21/252010 Contact Finger Assembler: us [facility] External Provider IMG XR PROCEDURES Final Result * (ABNORMAL) CBC auto differential (07/21/2025 7:40 PM EDT) Only the most recent of2 resultswithin the time period is included. White Blood Count 8.3 4.8 - 10.8 X10*3/uL [facility] Red Blood Count 4.59 4.20 - 5.50 X10*6/uL [facility] Hemoglobin 13.6 12.0 - 16.0 g/dl [facility] Hematocrit 40.3 37.0 - 47.0 % [facility] Mean Corpuscular Volume 87.8 80.0 - 98.0 fL [facility] Mean Corpuscular Hemoglobin 29.6 27.0 - 33.0 pg [facility] Mean Corpuscular HGB Conc 33.7 31.0 - 35.0 g/dl [facility] Red Cell Distribution Width 14.9 11.0 - 16.0 % [facility] Platelet Count 260 160 - 400 X10*3/uL [facility] Mean Platelet Volume 10.6 9.4 - 12.3 fL [facility] Neutrophils Percent Auto 74.0(H) 45 - 73 % [facility] Imm Gran Pct Auto 0.4 0.0 - 0.4 % [facility] Lymphocytes Percent Auto 19.1(L) 20 - 40 % [facility] Monocytes Percent Auto 4.8 2 - 11 % [facility] Eosinophils Percent Auto 1.3 0 - 4 % [facility] Basophils Percent Auto 0.4 0 - 2 % [facility] NRBC Pct Auto 0.0 0.0 - 0.2 /100WBC [facility] Neutrophils Absolute Auto 6.1 2.0 - 8.3 x10*3/uL [facility] Imm Gran Abs Auto 0.03 0.00 - 0.03 X10*3/uL [facility] Lymphocytes Absolute Auto 1.6 1.2 - 4.9 X10*3/uL [facility] Monocytes Absolute Auto 0.4 0.1 - 1.2 X10*3/uL [facility] Eosinophils Absolute Auto 0.1 0.0 - 0.4 X10*3/uL [facility] Basophils Absolute Auto 0.0 0.0 - 0.2 X10*3/uL [facility] NRBC Abs Auto 0.000 0.0 - 0.012 X10*3/uL [facility] 07/21/2025 7:4 0 PM EDT 07/21/2025 7:43 PM EDT Generic External Data Provider LAB BLOOD ORDERAB LES Final Result Performing Organization Address [facility]/ZIP Co de Phone Number [facility] [address] [place] [phone] * Lipase (07/21/2025 7:40 PM EDT) Only the most recent of2 resultswithin the time period is included. Pathologist [facility] Lipase 35 8 - 78 U/L [facility] 07/21/2025 7:40 PM EDT 07/21/2025 7:43 PM EDT [employer] External Data Provider LAB BLOOD ORDERAB LES Final Result Performing Organization Address [facility] Co de Phone Number [facility] [address] [place] [phone] * (ABNORMAL) Comprehensive Metabolic Panel (07/21/2025 7:40 PM EDT) Sodium 142 135 - 145 mmol/L [facility] Potassium 4.2 3.3 - 5.1 mmol/L [facility] Chloride 104 96 - 108 mmol/L [facility] Carbon Dioxide 27 22 - 29 mmol/L [facility] Anion Gap 15 12 - 20 [facility] Urea Nitrogen (BUN) 12 9 - 16 mg/dL [facility] Creatinine, Serum 0.66 0.5 - 1.4 mg/dL [facility] Creatinine Clr Calc Pharmacy 84.2 [facility] Comment:Provided height and weight: 157.48 cm,83.915 kg.eGFR (calculated from the MDRD study equation) and eCrCl(calculated from the Cockcroft-Gault equation) are based ondifferent parameters and may not yield comparable results.If eCrCl result is absurd, please check patient'sheight/weight. Estimated Glomerular Filt Rate >60 [facility] Comment:Chronic Kidney Disea se: Estimated GFR < 60 mL/min/1.92i7Xeeano Kidney Disease: Estimated GFR < 15 mL/min/1.73m2 Glucose 166(H) 60 - 115 mg/dL [facility] Calcium 9.6 8.4 - 10.2 mg/dL [facility] Bilirubin, Total 2.2(H) 0.0 - 1.0 mg/dL [facility] Aspartate Amino Transferase 1,210(H) 5 - 31 U/L [facility] Alanine Aminotransferase 892(H) 0 - 31 U/L [facility] Total Protein 7.1 6.5 - 8.0 g/dL [facility] Albumin Level 4.2 3.5 - 5.0 g/dL [facility] Alkaline Phosphatase 377(H) 39 - 117 U/L [facility] 07/21/2025 7:40 PM EDT 07/21/2025 7:43 PM EDT us Generic External Data Provider LAB BLOOD ORDERAB LES Final Result [facility] [address] [place] [phone] * (ABNORMAL) Urinalysis, Complete, with Reflex to Culture (07/18/2025 10:05 AM EDT) Color Urine Yellow [facility] Appearance Urine Clear [facility] PH 5.5 5.0 - 9.0 [facility] Glucose Urine UA Negative Negative mg/dL [facility] Urine Blood Trace(A) Negative [facility] Specific [place] - Urine 1.025 1.005 - 1.025 [facility] Urine Protein Negative Neg-Trace mg/dL [facility] Urine Ketones Negative Negative mg/dL [facility] Nitrite Urine Negative Negative [facility] Leukocyte Esterase Urine Negative Negative [facility] RBC Urine 0-2 0 - 2 /HPF [facility] Urine WBC 0-5 0 - 5 /HPF [facility] Urine Squamous Epithelial Cell 0-2 0 - 2 /HPF [facility] Urine Bacteria Trace None Seen [facility] Hyaline Casts, Urine 3-5 0 - 2 /LPF [facility] 07/18/2025 10:0 5 AM EDT 07/18/2025 10:08 AM EDT [facility] - 07/18/2025 10:16 AM EDT Urine, Clean Catch us Generic External Data Provider LAB URINE ORDERAB LES Final Result Performing Organization Address City/State/[facility] Co de Phone Number [facility] [address] [place] [phone] * (ABNORMAL) Urinalysis w/reflex microscopic (07/18/2025 10:05 AM EDT) Color Urine Yellow [facility] Appearance Urine Clear [facility] PH 5.5 5.0 - 9.0 [facility] Glucose Urine UA Negative Negative mg/dL [facility] Urine Blood Trace(A) Negative [facility] Specific [place] - Urine 1.025 1.005 - 1.025 [facility] Urine Protein Negative Neg-Trace mg/dL [facility] Urine Ketones Negative Negative mg/dL [facility] Nitrite Urine Negative Negative [facility] Leukocyte Esterase Urine Negative Negative [facility] 07/18/2025 10:0 5 AM EDT 07/18/2025 10:08 AM EDT Narrative [facility] - 07/18/2025 10:14 AM EDT Urine, Clean Catch us Generic External Data Provider LAB URINE ORDERAB LES Final Result Performing Organization Address [facility] de Phone Number [facility] [address] [place] [phone] * High Sensitivity Troponin I (07/18/2025 7:55 AM EDT) Pathologist [facility] [place] TROPONIN I HIGH SENSITIVITY <2.7 <3.5 - 17.0 ng/L [facility] Comment:The Jacinto high sens itivity Troponin-I results should beused in conjunction with other diagnostic information suchas ECG, clinical observations and information, and patientsymptoms to aid in the diagnosis of [place]. 07/18/2025 7:55 AM EDT 07/18/2025 8:42 AM EDT Generic External Data Provider LAB BLOOD ORDERAB LES Final Result Performing Organization Address [facility] Phone [facility] [address] [place] [phone] * (ABNORMAL) Hepatic Function Panel (07/18/2025 7:55 AM EDT) [facility] Bilirubin, Total 0.3 0.0 - 1.0 mg/dL [facility] Bilirubin, Direct 0.2 0.0 - 0.5 mg/dL [facility] Aspartate Amino Transferase 20 5 - 31 U/L [facility] Alanine Aminotransferase 12 0 - 31 U/L [facility] Total Protein 6.1(L) 6.5 - 8.0 g/dL [facility] Albumin Level 3.8 3.5 - 5.0 g/dL [facility] Alkaline Phosphatase 82 39 - 117 U/L [facility] 07/18/2025 7:55 AM EDT 07/18/2025 7:59 AM EDT Generic External Data Provider LAB BLOOD ORDERAB LES Final Result Performing Organization Address [facility]/ZIP Co de Phone Number [facility] [address] [place] [phone] * (ABNORMAL) Basic Metabolic Panel (07/18/2025 7:55 AM EDT) Sodium 138 135 - 145 mmol/L [facility] Potassium 3.9 3.3 - 5.1 mmol/L [facility] Chloride 105 96 - 108 mmol/L [facility] Carbon Dioxide 26 22 - 29 mmol/L [facility] Anion Gap 11(L) 12 - 20 [facility] Urea Nitrogen (BUN) 16 9 - 16 mg/dL [facility] Creatinine, Serum 0.72 0.5 - 1.4 mg/dL [facility] Creatinine Clr Calc Pharmacy 79.0 [facility] Comment:Provided height and weight: 160.02 cm,84.2 kg.eGFR (calculated from the MDRD study equation) and eCrCl(calculated from the Cockcroft-Gault equation) are based ondifferent parameters and may not yield comparable results.If eCrCl result is absurd, please check patient'sheight/weight. Estimated Glomerular Filt Rate >60 [facility] Comment:Chronic Kidney Disea se: Estimated GFR < 60 mL/min/1.99c0Vvvlfy Kidney Disease: Estimated GFR < 15 mL/min/1.73m2 Glucose 202(H) 60 - 115 mg/dL [facility] Calcium 8.9 8.4 - 10.2 mg/dL [facility] 07/18/2025 7:55 AM EDT 07/18/2025 7:59 AM EDT us Generic External Data Provider LAB BLOOD ORDERAB LES Final Result [facility] [address] [place] [phone] * US Extremity Non Vascular Left Limited (06/26/2025 1:09 PM EDT) Anatomical Region Laterality Modality Ultrasound 06/26/2025 1:09 PM EDT Narrative 06/26/2025 1:30 PM EDT [address] [address] Ultrasound Report Signed Patient: Sridevi Pruitt I MR#: [id number] 2336 : 1960 Acct:[id number] Age/Sex: 65 / F ADM Date: 06/26/25 Loc: HO.US Attending Dr: Libra Barone MD Ordering Physician: Libra Barone MD Date of Service: 06/26/25 Procedure(s): US Extremity Nonvas Limited LT Accession Number(s): [id number] cc: Libra Barone MD Exam:US Extremity Nonvas [...] 06/26/25 1327 DD/ 1309 TD/TT: 06/26/25 1312 Contact Finger Assembler: Procedure Note Donotuseinterpreter, Image - 06/26/[address] [address] Ultrasound Report Signed Patient: Sridevi Pruitt IMR#: [id number] : 1960cct:[id number] Age/Sex: 65 / FADM Date: 06/26/25 Loc: HO.US Attending Dr: Libra Barone MD Ordering Physician: Libra Barone MD Date of Service: 06/26/25 Procedure(s): US Extremity Nonvas Limited LT Accession Number(s): [id number] cc: Libra Barone MD Exam:US Extremity Nonvas [...] 06/26/25 1327 DD/ 1309 TD/TT: 06/26/25 1312 Contact Finger Assembler: us Libra Barone MD IMG US PROCEDURES Final Re sult * BI Mammogram Diagnostic Tomosynthesis Bilateral (05/18/2025 1:30 PM EDT) Anatomical Region Laterality Modality Breast Bilateral Mammography 05/18/2025 1:30 PM EDT Narrative 05/18/2025 2:45 PM EDT [facility] [address] [place] [address] Mammography Report Signed Patient: Sridevi Pruitt I MR#: [id number] 2336 : 1960 Acct:[id number] Age/Sex: 64 / F ADM Date: 05/18/25 Loc: HO.MAMMO Attending Dr: Sue Coats MD Ordering Physician: Sue Coats MD Results: 2Be nign Findings Date of Service: 05/18/25 Follow Up: 1 Year From Orig ina Mammogram Procedure(s): MM tomosynthesis diagnostic BI Accession Number(s): [id number] cc: Libra Barone MD; Sue Coats MD [...] clip from previous needle core biopsy. Left: [place] marker in the lower inner left breast [...] 05/18/25 1443 DD/ 1330 TD/TT: 05/18/25 1358 Contact Finger Assembler: Procedure Note Donotuseinterpreter, Image - 05/18/2025 [place] [facility] [address] [place], [place] [address] Mammography Report Signed Patient: Sridevi Pruitt [facility]#: [id number] 2336 : 9Acct:[id number] Age/Sex: 64 / FADM Date: 05/18/25 Loc: HO.MAMMO Attending Dr: Sue Coats MD Ordering Physician: Sue Coats MDResults: 2Be nign Findings Date of Service: 05/18/25Follow Up: 1 Year From [facility] Mammogram Procedure(s): MM tomosynthesis diagnostic BI Accession Number(s): [id number] cc: Libra Barone MD; uSe Coats MD EXAMINATION: MM DIAGNOSTIC DIGITAL BREAST [...] clip from previous needle core biopsy. Left: [place] marker in the lower inner left breast [...] 05/18/25 1443 DD/ 1330 TD/TT: 05/18/25 1358 Contact Finger Assembler: us Sue Coats MD IMG BI PROCEDURES Final Result * BI US Breast Limited Left (05/18/2025 1:23 PM EDT) Anatomical Region Laterality Modality Breast Left Ultrasound 05/18/2025 1:23 PM EDT Narrative 05/18/2025 2:45 PM EDT [facility] [address] [place] [address] Ultrasound Report Signed Patient: Sridevi Pruitt I MR#: [id number] 2336 : 1960 Acct:[id number] Age/Sex: 64 / F ADM Date: 05/18/25 Loc: HO.MAMMO Attending Dr: Sue Coats MD Ordering Physician: Sue Coats MD Date of Service: 05/18/25 Procedure(s): US breast LT limited mamm only Accession Number(s): [id number] cc: Libra Barone MD; Sue Coats MD [...] clip from previous needle core biopsy. Left: [place] marker in the lower inner left breast [...] 05/18/25 1443 DD/ 1323 TD/TT: 05/18/25 1422 Contact Finger Assembler: Procedure Note Donotuseinterpreter, Image - 05/18/2025 [place] [facility] [address] [place] [address] Ultrasound Report Signed Patient: Sridevi Pruitt IMR#: [id number] : 9Acct:[id number] Age/Sex: 64 / FADM Date: 05/18/25 Loc: HO.MAMMO Attending Dr: Sue Coats MD Ordering Physician: Sue Coats MD Date of Service: 05/18/25 Procedure(s): US breast LT limited mamm only Accession Number(s): [id number] cc: Libra Barone MD; Sue Coats MD [...] clip from previous needle core biopsy. Left: [place] marker in the lower inner left breast [...] 05/18/25 1443 DD/ 1323 TD/TT: 05/18/25 1422 Contact Finger Assembler: us Sue Coats MD IMG US PROCEDURES Final Result * Albumin, Random Urine W/Creatinine (04/18/2025 8:51 AM EDT) Creatinine, Urine 214.51 mg/dL [facility] Microalbumin Urine 16.0 mg/L [facility] Microalbum Creatinine Ratio Ur 7.4 <30 ug/mg cr [facility] Comment:Albumin/Creatinine R atio Reference Ranges: Normal: < 30 ug/mg creatinine Microalbuminuria: 30 - 300 ug/mg creatinineClinical Albuminuria: > 300 ug/mg creatinine Urine 04/18/2025 8:51 AM EDT 04/18/2025 11:06 AM EDT us Libra Barone MD LAB URINE ORDERABLES Final Result [facility] [address] [place] [phone] * (ABNORMAL) Hemoglobin A1c (04/18/2025 8:51 AM EDT) Hemoglobin A1c 7.2(H) <6.0 % [facility] Comment:Hemoglobin A1C Refer ence Range Adults: 4.8 - 6.0 % Non diabetic: < 6.0 % Goal: < 7.0 %Additional Action Suggested: > 8.0 %Note: Hemoglobin A1c results are invalid for patients with abnormal amounts of HbF. Blood transfusions may impact the HbA1c concentration in the patient sample. Estimated Average Glucose 160 mg/dL [facility] Comment:eAG = Estimated ave rage glucose which is %A1C expressed asaverage glucose, using the formula of the W9P-GiyxvdeMdzvmyk Glucose study (ADAG), Diabetes Care, Vol.31,#8,Jun. 2007 Blood Venous blood specimen / Unknown 04/18/2025 8:51 AM EDT 04/18/2025 11:06 AM EDT Libra Barone MD LAB BLOOD ORDERABLES Final Result [facility] [address] [place] [phone] * Lipid Panel, Standard (04/18/2025 8:51 AM EDT) Triglycerides 61 <150 mg/dL [facility] Comment:Desirable Triglyceri de: less than 150 mg/dLBorderline High Triglyceride 150-199 mg/dLHigh Triglyceride: 200-499 mg/dLVery High Triglyceride: greater than or equal to 5OO mg/dL Cholesterol 144 <200 mg/dL [facility] Comment:Desirable Cholestero l: less than 200 mg/dLBorderline High Cholesterol: 200-239 mg/dLHigh Cholesterol: greater than 239 mg/dL LDL Cholesterol Calculated 79 <100 mg/dL [facility] Comment:Desirable LDL: less than 100 mg/dLNear Optimal/Above Optimal LDL: 110- 129 mg/dLBorderline High LDL: 130-159 mg/dLHigh LDL: 160-189 mg/dLVery High LDL: greater than or equal to 190 mg/dL HDL Cholesterol 53 >40 mg/dL [facility] Comment:Desirable HDL: great er than 40 mg/dL Note: This HDL assay may give artificially low results in patients with liver disease. Blood Venous blood specimen / Unknown 04/18/2025 8:51 AM EDT 04/18/2025 11:06 AM EDT Libra Barone MD LAB BLOOD ORDERABLES Final Result [facility] [address] [place] [phone] * ThinPrep Imaging Pap and HPV mRNA E6/E7 with Reflex to HPV 16,18/45 (06/21/2024 9:52 AM EDT) HPV 16 RNA [facility] HPV 18/45 RNA [facility] HPV nRNA E6/E7 Not Detected Not Detected [facility] Comment:Methodology: Transcr iption-Mediated AmplificationThis assay detects E6/E7 viral messenger RNA (mRNA) from 14high-risk HPV types (16,18,31,33,35,39,45,51,52,56,58,59,66,68).Cervical sources are required for HPV testing.If a vaginal source from a patient who has had atotal hysterectomy with removal of cervix wassubmitted, please contact the testing laboratoryfor alternative testing options.For additional information, please refer [email or web address]/[email or web address](This link if provided for information/educational purposes only.)THIS TEST WAS PERFORMED AT:[facility] [place] [phone] KHAN MD SOURCE: SEE NOTE [facility] Comment:Cervix Report Status: [facility] Clinical Information: SEE NOTE [facility] Comment:ROUTINE LMP: SEE NOTE [facility] Comment:PM Prev. PAP: SEE NOTE [facility] Comment:06/05/22 Prev. BX: SEE NOTE [facility] Comment:NONE GIVEN Statement Of Adequacy: SEE NOTE [facility] Comment:SATISFACTORY FOR GHAZAL LUATION General Categorization: [facility] Interpretation/Result: SEE NOTE [facility] Comment:Cytology Results: Ne gative for intraepitheliallesion or malignancy.Atrophic pattern; predominantly parabasal cells Cytology Comment SEE NOTE [facility] Comment:This Pap test has be en evaluated with computerassisted technology. Road Cutter: SEE NOTE [facility] Comment:BK,CT(ASCP)CT screen ing location: [address] Cutter: TNP [facility] Pathologist TNP [facility] PAP Infection [facility] See Note SEE NOTE [facility] Comment:EXPLANATORY NOTE:The Pap is a screening test for cervical cancer. It isnot a diagnostic test and is subject to false negativeand false positive results. It is most reliable when asatisfactory sample, regularly obtained, is submittedwith relevant clinical findings and history, and whenthe Pap result is evaluated along with historic andcurrent clinical information. 06/21/2024 9:52 AM EDT 06/21/2024 2:35 PM EDT Narrative [facility] - 06/23/2024 12:57 PM EDT SEE SCANNED RESULTS IN EMRWas previous PAP abnormal? YesIf PAP abnormal, please specify: hpv +Clinical Information: RoutineCollection Date: 06/21/24LMP: postmenopausalDate of previous PAP 06/05/22Performed by: : Cervical us Generic External Data Provider LAB PATHOLOGY ORD ERABLES Final Result [facility] [address] [place] [phone] * Hepatitis Panel, General (07/22/2023 1:58 PM EDT) Hepatitis A IgM Nonreactive Nonreactive [facility] Comment:IgM antibodies to WOLF V not detected; does not exclude earlyacute or recovered HAV infection. ~Hepatitis B Surface Antibody REACTIVE Nonreactive [facility] Comment:REACTIVE: > 11.99 mI U/mL Hepatitis B Core Antibody Nonreactive Nonreactive [facility] Hepatitis C Antibody Nonreactive Nonreactive [facility] Comment:Antibodies to HCV no t detected; does not exclude early acuteHCV infection. Hepatitis B Surface Ag Negative Negative [facility] 07/22/2023 1:58 PM EDT 07/22/2023 1:59 PM EDT [facility] External Provider LAB BLO OD ORDERABLES Final Result [facility] [address] [place] [phone] * Hm Colonoscopy (12/01/2022 12:16 PM EST) Historical Provider MD HEALTH MAINTENANCE Final Result from Last 3 Months or Most Recently Relevant to Health Maintenance Insurance [facility] C[employer]IAL OPT[employer] (HMO D-SNP) [facility] STANDARD DENTAL [facility] Care Teams Operations Support Professionals Relationship Specialty Start Date End Date Lizabeth, MD Libra [address] [place] [address] PCP - General Family Medicine 11/23/18 Malu Medina, LisaD [address] [place] [address] Pharmacist Internal Medicine 05/09/24 Tamie Vega OD [address] [place] [phone] Optometry 02/16/25February [address] [place] [address] [address] [place] [address] Gastroenterology 04/20/25
[2025-07-27 21:33] LABS: Hematocrit 40.7 % (37.0-47.0); Hemoglobin 13.7 g/dl (12.0-16.0); Imm Gran Abs Auto 0.06 X10*3/uL (0.00-0.03); Imm Gran Pct Auto 0.7 % (0.0-0.4); Lymphocytes Absolute Auto 2.5 X10*3/uL (1.2-4.9); Mean Corpuscular HGB Conc 33.7 g/dl (31.0-35.0); Mean Corpuscular Hemoglobin 29.8 pg (27.0-33.0); Mean Corpuscular Volume 88.5 fL (80.0-98.0); NRBC Abs Auto 0.000 X10*3/uL (0.0-0.012); NRBC Pct Auto 0.0 /100WBC (0.0-0.2); Platelet Count 328 X10*3/uL (160-400); Red Blood Count 4.60 X10*6/uL (4.20-5.50); White Blood Count 9.0 X10*3/uL (4.8-10.8)
[2025-07-27 21:43] VITALS: BP 142/78; PULSE 58; RESP 16; TEMP 36.6; O2SAT 97
--- NOTE | 2025-07-27 23:20 | PC.NURSE ---
pt ambulatory to bathroom with steady gait, offers no complaints, urine sample obtained and sent to lab
[2025-07-27 23:21] LABS: Appearance Urine Clear; Glucose Urine UA Negative (Negative); PH 7.0 (5.0-9.0); Specific Gravity - Urine 1.010 (1.005-1.025); UMIC TRIGGER UACC YES
[2025-07-27 23:24] LABS: UACC Culture Trigger YES
[2025-07-28] VITALS (17 sets, daily range): BP systolic 130–163; BP diastolic 67–80; PULSE 54–85; RESP 15–20; TEMP 36–37.2; O2SAT 92–100
--- NOTE | 2025-07-28 00:08 | ED.GENADULT ---
HPI - General Adult General Chief complaint: Abdominal Pain Stated complaint: abd pain Time Seen by Provider: 07/27/25 22:04 Source: patient, RN notes reviewed, old records reviewed and camera repairer Mode of arrival: ambulatory Limitations: language barrier History of Present Illness ED Provider: Tom HPI narrative: 65-year-old female with recent cholecystectomy on 07/18/[address] Vega presents for evaluation of abdominal pain, nausea. Patient reports worsening abdominal pain for the last couple of days. She is initially admitted for cholecystitis and had her cholecystectomy on 07/18, she was discharged the following day and then returned on 07/21/2025 with increased pain, elevated bilirubin. She had a repeat abdominal ultrasound, a CT scan of the pelvis in an MRCP that all show ductal dilatation but no obvious stone, no obvious abscess. LFTs trended downward and she was ultimately discharged home The patient states that her pain is worsening, she would have a bowel movement yesterday but not today Denies any fevers or chills pain She has not vomited but does complain of nausea Related Data Home Medications ?Medication ?Instructions ?Recorded ?Confirmed levothyroxine 75 mcg tablet 75 mcg PO DAILY@0630 05/23/22 07/21/25 sertraline 100 mg tablet 150 mg PO QAM 05/23/22 07/21/25 atenolol 25 mg tablet 25 mg PO DAILY 03/24/23 07/21/25 fluticasone propionate 50 2 spray intranasal DAILY 03/24/23 07/21/25 mcg/actuation nasal spray,suspension bupropion HCl 150 mg 24 hr tablet, 150 mg PO DAILY 04/20/25 07/21/25 extended release rosuvastatin 20 mg tablet 20 mg PO BEDTIME 04/20/25 07/21/25 bupropion HCl 300 mg 24 hr tablet, 300 mg PO DAILY 07/18/25 07/21/25 extended release fluticasone furoate 100 1 inh inhalation DAILY 07/18/25 07/21/25 mcg/actuation blister powder for inhalation (Arnuity Ellipta) metformin 500 mg tablet,extended 500 mg PO DAILY 07/18/25 07/21/25 release 24 hr metoclopramide HCl 10 mg tablet 10 mg PO TID 07/18/25 07/21/25 (Reglan) valsartan 80 mg tablet 80 mg PO DAILY 07/18/25 07/21/25 Previous Rx's ?Medication ?Instructions ?Recorded dicyclomine 20 mg tablet 20 mg PO TID 30 days #90 tabs 04/20/25 pantoprazole 40 mg tablet,delayed 40 mg PO BID #60 tabs 04/20/25 release simethicone 180 mg capsule 180 mg PO QID #120 caps 04/20/25 hydrocortisone 2.5 % topical cream 1 appl [place] BID hemorrhoids #30 grams 06/20/25 with perineal applicator (Proctosol HC) docusate sodium 100 mg capsule 100 mg PO BID #30 caps 07/19/25 (Colace) oxycodone 5 mg tablet 5 mg PO Q4H PRN pain (scale score 07/19/25 7-10) #26 tabs Allergies Allergy/AdvReac Type Severity Reaction Status Date / Time No Known Allergies (No Known Allergy Verified 07/27/25 20:36 Allergies*) Review of Systems Constitutional: Constitutional: Denies body ache(s), Denies chills and Denies fever(s) Eyes: Eyes: Denies blurry vision ENT: Denies dizziness and Denies dry mouth Cardiovascular: Cardiovascular: Denies chest pain, Denies chest pain at rest, Denies chest pain with activity and Denies dyspnea on exertion Respiratory: Respiratory: Denies cough and Denies dyspnea on exertion Gastrointestinal: Gastrointestinal: Reports abdominal pain, Denies hematochezia, Reports nausea and Denies vomiting Musculoskeletal: Musculoskeletal: Denies back pain Integumentary/Breasts: Skin/Breast: Denies rash Neurologic: Denies dizziness Psychiatric: Psychiatric: Denies anxiety [facility] Past Medical History Medical History (Updated 07/28/25 @ 06:45 by Luke Nelson MD) Transaminitis Abdominal bloating Postmenopausal bleeding Unsatisfactory cervical Papanicolaou smear Chronic idiopathic constipation Urinary frequency Diverticulitis Epigastric pain COVID-19 Well woman exam Bacterial vaginosis Uterine mass COVID-19 Well woman exam Smoker Bacterial vaginosis Hypertension Tubular adenoma of colon LLQ abdominal pain 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 Gastritis Surgical History (Updated 07/28/25 @ 00:03 by Mitch Pacheco) Hx of hernia repair History of esophagogastroduodenoscopy (EGD) Hx of colonoscopy Family History Family History Father Family history of prostate problems Colon cancer Mother Tumor Social History Social History Household Members: None Housing: Apartment Do you presently have visiting nurse or other home services: Yes (daughter is RETAIL EVENT COORDINATOR) Alcohol intake: never Patient Tobacco Use Status: Never used Tobacco Tobacco use type: Cigarette Cigarettes Per Day: 2 Years Smoked: 20 Smoked in Last 30 Days: Yes e-Cigarette/Vaping Use: Never Used Second Hand Smoke Exposure: No Advance Directives: No Advance Directives Information Provided: No Nutrition Risks: No Nutritional Risk service: No Current occupational status: disabled Physical Exam ED Vital Signs: Vital Signs - 24 hr 07/27/25 20:32 07/27/25 21:43 07/28/25 03:22 Temperature 97.8 F 98 F 98.2 F Pulse Rate 65 58 85 Respiratory Rate 16 16 15 Blood Pressure 142/61 H 142/78 H 163/80 H Pulse Oximetry 97 97 99 Oxygen Delivery Method Room Air Room Air Room Air 07/28/25 06:04 Temperature 98.2 F Pulse Rate 56 Respiratory Rate 17 Blood Pressure 136/69 Pulse Oximetry 97 Oxygen Delivery Method Room Air BMI result Body Mass Index 32.4 Const General: healthy appearing, comfortable, no acute distress, alert and awake Nutritional Appearance: well nourished Orientation/consciousness: patient oriented x3 HENMT Head: Yes normocephalic and Yes atraumatic Eyes Eyelids: Yes eyelids normal Conjunctivae: conjunctivae normal Sclerae: sclerae normal Corneas: corneas normal Pupils: Equal, round and reactive pupils present EOM: EOMs intact bilaterally Neck Neck: Yes full ROM Resp Effort & Inspection: normal respiratory effort, able to speak in complete sentences and not labored GI Other: The patient has mild upper abdominal tenderness without distention, rebound or guarding. Inspection: No distended Palpation (GI): Soft to palpation, not firm, Tenderness to palpation present (GI) in the epigastrum, in the LUQ and in the RUQ, no guarding and not rigid Skin General skin exam: elasticity normal Neuro General: patient oriented x3 Cranial nerves: Yes Equal, round and reactive pupils present and Yes Bilaterally intact EOM present Cognition (Neuro): normal cognition Extrem Other: Moving all extremities well without any obvious deformities Course Course Course Narrative: 5:02 AM 07/28/2025 (Katy SCHUMACHER): The patient was signed out to this provider at shift change. In summary the patient is a 65-year-old female presenting to the ED after she underwent a cholecystectomy at this location on 07/18. Patient was seen again on 07/21 for increasing pain with elevated T bili, underwent MRCP and CT which was positive for ductal dilatation but negative for stone. The patient was discharged on 07/24, however returns today with worsening epigastric abdominal pain, nausea, and bloating. On evaluation today patient was noted to have new onset elevated lipase of 394. Initial provider discussed the patient's case with Dr. Silva from the surgical service who requested repeat CT imaging. Patient was signed out pending results of CT, at this time CT has resulted and shows no acute process. We will discuss once again with Dr. Silva for consideration of admission for acute pancreatitis in the setting of recent cholecystectomy. 5:08 AM 07/28/2025 (Katy SCHUMACHER): Patient's case discussed with Dr. Silva who will come see the patient in the ED this morning for in person re-evaluation. Reevaluation(s) Reevaluation #1: Dr. Silva ultimately decided to admit the patient to his service. The patient will therefore be admitted. Medications Administered Generic Name Dose Route Start Last Admin Trade Name Freq PRN Reason Stop Dose Admin Lactated Ringer's 1,000 mls @ 100 mls/hr 07/28/25 06:30 07/28/25 06:30 Lr IVCONT 100 mls/hr .Q10H BRIANDA Administration Levothyroxine Sodium 75 mcg 07/28/25 06:30 07/28/25 06:37 Levothyroxine Sodium 75 Mcg Tablet PO 75 mcg DAILY@0600 BRIANDA Administration Discontinued Medications Generic Name Dose Route Start Last Admin Trade Name Freq PRN Reason Stop Dose Admin Acetaminophen 975 mg 07/28/25 03:16 07/28/25 03:21 Acetaminophen 325 Mg Tablet PO 07/28/25 03:17 975 mg ONCE ONE Administration Iohexol 85 ml 07/28/25 01:50 07/28/25 01:50 Iohexol 350 Mg/Ml 100 Ml Infus..Btl IV 07/28/25 01:51 85 ml ONCE ONE Administration Medical Decision Making Medical Decision Making MDM Narrative: 65-year-old female presents for evaluation of upper abdominal pain, nausea. I reviewed her recent workup including cholecystectomy than additional images on her return visit. Today the patient does not have any leukocytosis, she does not have a significant left shift. Her chemistries are significant for a T bili of 2.1, mostly direct bilirubin, AST of 331, ALT of 324 an alk phos of 733. These are similar to her discharge labs from 07/24/2025 the of the alk phos is significantly more elevated and the ALT is slightly decreased. However the new development is that her lipase today is 397 when it was within normal limits on her recent readmission. I discussed with general surgery, Dr. Silva who recommends repeat CT scan of the abdomen pelvis with IV contrast. Differential Diagnosis Differential Diagnoses: The differential diagnosis associated with the presentation includes Abdominal pain Constipation Diverticulitis Gastritis Obstructive biliary stone Consult Healthcare Provider Management of the patient was discussed with: Service Bar Cashier General surgery, Dr. Silva Lab Data [facility] Lab Attestation statement: I reviewed the patient's lab results. As above 07/27/25 20:47 07/27/25 20:47 Labs: Lab Results 07/27/25 07/27/25 Range/Units 20:47 23:13 WBC 9.0 (4.8-10.8) X10*3/uL RBC 4.60 (4.20-5.50) X10*6/uL Hgb 13.7 (12.0-16.0) g/dl Hct 40.7 (37.0-47.0) % MCV 88.5 (80.0-98.0) fL MCH 29.8 (27.0-33.0) pg MCHC 33.7 (31.0-35.0) g/dl RDW 15.3 (11.0-16.0) % Plt Count 328 D (160-400) X10*3/uL MPV 10.6 (9.4-12.3) fL Immature Gran % (Auto) 0.7 H (0.0-0.4) % Neut % (Auto) 62.7 (45-73) % Lymph % (Auto) 27.3 (20-40) % [place] % (Auto) 6.6 (2-11) % Eos % (Auto) 2.1 (0-4) % Baso % (Auto) 0.6 (0-2) % Lymph # (Auto) 2.5 (1.2-4.9) X10*3/uL [place] # (Auto) 0.6 (0.1-1.2) X10*3/uL Eos # (Auto) 0.2 (0.0-0.4) X10*3/uL Baso # (Auto) 0.1 (0.0-0.2) X10*3/uL Abs Immat Gran (auto) 0.06 H (0.00-0.03) X10*3/uL Absolute Neuts (auto) 5.7 (2.0-8.3) x10*3/uL Absolute Nucleated RBC 0.000 (0.0-0.012) X10*3/uL Nucleated RBC % (auto) 0.0 (0.0-0.2) /100WBC Sodium 140 (135-145) mmol/L Potassium 4.2 (3.3-5.1) mmol/L Chloride 103 (96-108) mmol/L Carbon Dioxide 29 (22-29) mmol/L Anion Gap 12 (12-20) BUN 13 (9-16) mg/dL Creatinine 0.75 (0.5-1.4) mg/dL Estim Creat Clear Calc 72.4 Estimated GFR > 60 Random Glucose 151 H (60-115) mg/dL Calcium 9.3 (8.4-10.2) mg/dL Total Bilirubin 2.1 H (0.0-1.0) mg/dL Direct Bilirubin 1.6 H (0.0-0.5) mg/dL AST 331 H (5-31) U/L ALT 324 H (0-31) U/L Alkaline Phosphatase 733 H (39-117) U/L Total Protein 7.0 (6.5-8.0) g/dL Albumin 4.1 (3.5-5.0) g/dL Lipase 397 H (8-78) U/L Urine Color Dark Yellow Urine Appearance Clear Urine pH 7.0 (5.0-9.0) Ur Specific [place] 1.010 (1.005-1.025) Urine Protein Negative (Neg-Trace) mg/dL Urine Glucose (UA) Negative (Negative) mg/dL Urine Ketones Negative (Negative) mg/dL Urine Blood Negative (Negative) Urine Nitrite Negative (Negative) Ur Leukocyte Esterase Small (1+) H (Negative) Urine RBC 0-2 (0-2) /HPF Urine WBC 6-10 H (0-5) /HPF Ur Squamous Epith Cells 6-10 (0-2) /HPF Urine Bacteria None Seen (None Seen) Hyaline Casts 0-2 (0-2) /LPF Discharge Plan Discharge Clinical Impression: Abdominal pain Patient Disposition: Admitted As Inpatient
[2025-07-28] MEDS: iohexoL 350 MG/ML 100 ML INFUS..BTL 85 ML IV (01:50)
--- NOTE | 2025-07-28 03:36 | PC.NURSE ---
environmental safety specialist at bedside. pt reporting 9/10 headache at this time, verbal order for tylenol from ENDY Simmons placed. pt tolerated whole well with water
[2025-07-28] MEDS: Lactated Ringers 1,000 ML 100 ML IVCONT ×2 (06:30→20:15)
--- NOTE | 2025-07-28 08:08 | HO.PM.IMCN ---
History of Present Illness Data of Consult Service Date: 07/28/25 Requesting physician: Dex Silva Primary Care Provider: Libra Barone MD [facility] Reason for consult: DM, HTN, thyroid dz This is a 65 year old female with history of diabetes, hypertension who presented to the ED for abdominal pain. History was obtained with the assistance of a check pilot. She initially had lap rita on 07/18/25 for biliary colic, chronic cholecystitis. She was readmitted 3 days later after she developed new RUQ abd pain associated with significantly elevated LFTs. GI was consulted and MRCP was performed which showed mild intrahepatic biliary ductal dilatation and mild dilatation of the common hepatic duct without obstructing calculus or mass. Her LFTs began to improve and her symptoms resolved. Picture was felt to be suggestive of passed CBD stone. Her diet was advanced and she was discharged to home on 07/24/25. She represented to the ED with complaints of worsening abd pain and nausea. Work up in the ED included CBC, BMP, LFTs which showed total/direct bili of 2.1/1.6, AST/ALT 331/[address] scan abd pelvis was obtained showed no acute findings. She was re-admitted to the surgical service and the hospitalists were asked to see her in consultation for medical management. Review of Systems Review of Systems: Yes all other systems are reviewed and are negative Constitutional: Constitutional: Denies chills and Denies fever(s) Cardiovascular: Cardiovascular: Denies chest pain, Denies palpitations and Denies dyspnea Respiratory: Respiratory: Denies cough and Denies dyspnea Gastrointestinal: Gastrointestinal: Reports abdominal pain Endocrine: Endocrine: Denies palpitations [facility] Medical History Transaminitis Abdominal bloating Postmenopausal bleeding Unsatisfactory cervical Papanicolaou smear Chronic idiopathic constipation Urinary frequency Diverticulitis Epigastric pain COVID-19 Well woman exam Bacterial vaginosis Uterine mass COVID-19 Well woman exam Smoker Bacterial vaginosis Hypertension Tubular adenoma of colon LLQ abdominal pain 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 Gastritis Family History Father Family history of prostate problems Colon cancer Mother Tumor Surgical History Hx laparoscopic cholecystectomy Hx of hernia repair History of esophagogastroduodenoscopy (EGD) Hx of colonoscopy Social History Household Members: None Housing: Apartment Do you presently have visiting nurse or other home services: Yes (daughter is MANAGER [employer]) Alcohol intake: never Patient Tobacco Use Status: Never used Tobacco Tobacco use type: Cigarette Cigarettes Per Day: 2 Years Smoked: 20 Smoked in Last 30 Days: Yes e-Cigarette/Vaping Use: Never Used Second Hand Smoke Exposure: No Advance Directives: No Advance Directives Information Provided: No Nutrition Risks: No Nutritional Risk service: No Current occupational status: disabled Meds Allergies Allergy/AdvReac Type Severity Reaction Status Date / Time No Known Allergies (No Known Allergy Verified 07/27/25 20:36 Allergies*) Active Medications: Current Medications Acetaminophen (Acetaminophen 325 Mg Tablet) 650 mg PO Q6H PRN PRN Reason: Pain, Mild 1-3,fever,headache Atenolol (Atenolol 25 Mg Tablet) 25 mg PO DAILY [facility]; Protocol Calcium Carbonate (Calcium Carbonate 750 Mg Tab.Chew) 750 mg PO Q4H PRN PRN Reason: Heartburn Heparin Sodium (Porcine) (Heparin Sodium,Porcine 5,000 Unit/Ml Vial) 5,000 unit SUBCUT Q8H [facility] Lactated Ringer's (Lr) 1,000 mls @ 100 mls/hr IVCONT .Q10H [facility] Last Admin: 07/28/25 06:30 Dose: 100 mls/hr Levothyroxine Sodium (Levothyroxine Sodium 75 Mcg Tablet) 75 mcg PO DAILY@0600 [facility] Last Admin: 07/28/25 06:37 Dose: 75 mcg Melatonin (Melatonin 3 Mg Tablet) 6 mg PO BEDTIME PRN PRN Reason: Insomnia Morphine Sulfate (Morphine Sulfate 4 Mg/Ml Cartridge) 3 mg IVPUSH Q4H PRN; Protocol PRN Reason: Pain, Severe (Pain Scale 7-10) Ondansetron HCl (Ondansetron Hcl 4 Mg/2 Ml Vial) 4 mg IVPUSH Q8H PRN PRN Reason: Nausea and Vomiting Sodium Chloride (0.9 % Sodium Chloride Flush 3 Ml Syringe) 3 ml IVFLUSH QSHIFT [facility] Valsartan (Valsartan 80 Mg Tablet) 80 mg PO DAILY [facility]; Protocol Home Medications ?Medication ?Instructions ?Recorded ?Confirmed ?Last Taken ?Type levothyroxine 75 mcg tablet 75 mcg PO DAILY@0630 05/23/22 07/28/25 07/27/25 History sertraline 100 mg tablet 150 mg PO DAILY 05/23/22 07/28/25 07/27/25 History atenolol 25 mg tablet 25 mg PO DAILY 03/24/23 07/28/25 07/27/25 History fluticasone propionate 50 2 spray intranasal DAILY 03/24/23 07/28/25 07/27/25 History mcg/actuation nasal spray,suspension bupropion HCl 150 mg 24 hr tablet, 150 mg PO DAILY 04/20/25 07/28/25 07/27/25 History extended release rosuvastatin 20 mg tablet 20 mg PO BEDTIME 04/20/25 07/28/25 07/27/25 History bupropion HCl 300 mg 24 hr tablet, 300 mg PO DAILY 07/18/25 07/28/25 07/27/25 History extended release fluticasone furoate 100 1 inh inhalation DAILY 07/18/25 07/28/25 07/27/25 History mcg/actuation blister powder for inhalation (Arnuity Ellipta) metformin 500 mg tablet,extended 500 mg PO DAILY@1700 07/18/25 07/28/25 07/27/25 History release 24 hr metoclopramide HCl 10 mg tablet 10 mg PO TIDAC 07/18/25 07/28/25 07/27/25 History (Reglan) valsartan 80 mg tablet 80 mg PO DAILY 07/18/25 07/28/25 07/27/25 History pantoprazole 40 mg tablet,delayed 40 mg PO BID@0630,1630 07/28/25 07/28/25 07/27/25 History release Physical Exam Vital Signs and Narrative: Vital Signs: Last Vital Signs Temp 98.2 F 07/28/25 06:04 Pulse 56 07/28/25 06:04 Resp 17 07/28/25 06:04 BP 136/69 07/28/25 06:04 Pulse Ox 97 07/28/25 06:04 O2 Del Method Room Air 07/28/25 06:04 BMI result Body Mass Index 32.4 Const: General: cooperative, comfortable, alert and awake Nutritional Appearance: overweight Orientation/consciousness: patient oriented x3 Resp: Effort & Inspection: normal respiratory effort, able to speak in complete sentences, no respiratory distress and no use of accessory muscles Cardio: Rate: regular rate GI: Inspection: No distended Palpation (GI): Soft to palpation Neuro: General: patient oriented x3, moves all extremities and CN's II-XI intact bilaterally Extrem: Other: LLE chronically swollen compare to RLE as per pt Results Labs 07/27/25 20:47 07/27/25 20:47 Labs: Laboratory Results - last 24 hr 07/27/25 07/27/25 20:47 23:13 MCV 88.5 MCH 29.8 MCHC 33.7 RDW 15.3 Plt Count 328 D MPV 10.6 Immature Gran % (Auto) 0.7 H Neut % (Auto) 62.7 Lymph % (Auto) 27.3 [place] % (Auto) 6.6 Eos % (Auto) 2.1 Baso % (Auto) 0.6 Lymph # (Auto) 2.5 [place] # (Auto) 0.6 Eos # (Auto) 0.2 Baso # (Auto) 0.1 Abs Immat Gran (auto) 0.06 H Absolute Neuts (auto) 5.7 Absolute Nucleated RBC 0.000 Nucleated RBC % (auto) 0.0 Anion Gap 12 Estim Creat Clear Calc 72.4 Estimated GFR > 60 Random Glucose 151 H Calcium 9.3 Total Bilirubin 2.1 H Direct Bilirubin 1.6 H AST 331 H ALT 324 H Alkaline Phosphatase 733 H Total Protein 7.0 Albumin 4.1 Lipase 397 H Urine Color Dark Yellow Urine Appearance Clear Urine pH 7.0 Ur Specific [place] 1.010 Urine Protein Negative Urine Glucose (UA) Negative Urine Ketones Negative Urine Blood Negative Urine Nitrite Negative Ur Leukocyte Esterase Small (1+) H Urine RBC 0-2 Urine WBC 6-10 H Ur Squamous Epith Cells 6-10 Urine Bacteria None Seen Hyaline Casts 0-2 Assessment and Plan (1) Pancreatitis: Status: Acute (2) Elevated LFTs: Status: Acute Plan This is a 65 year old Kyrgyz speaking female with history of HTN, HLD, DM, recent cholecystectomy who presents to the emergency department with recurrent abdominal pain admitted to the surgical service abdominal pain recent cholecystectomy, MRCP on 07/22 showed mild intrahepatic biliary duct dilation and mild dilation of CBD but no stones elevated LFTs/lipase concerning for gallstone pancreatitis GI following, plan for ERCP NPO management as per surgical/GI service hold statin due to elevated LFTs trend LFTs, lipase DM NPO hold metformin SSI, POCs HTN continue atenolol, valsartan HLD hold statin as above mood continue sertraline, bupropion Hypothyroidism Continue Synthroid gerd continue PPI dvt ppx as per surgical team Thank you for allowing us to participate in the care of this patient. We will follow along with you
--- NOTE | 2025-07-28 08:14 | PHA.MEDREC ---
Pharmacy Consult ? Medication Reconciliation Pharmacy has completed the medication reconciliation.Spoke with patient via payroll and benefits manager. Patient was able to confirm all medications. Last took meds yesterday. Med Box patient at [facility]
--- NOTE | 2025-07-28 08:40 | PM.HPGS ---
History of Present Illness History of Present Illness Date of Service: 07/28/25 <Yasmin Tang PA-C - Last Filed: 07/28/25 09:23> 07/28/25 <Dex Silva MD - Last Filed: 07/28/25 15:20> Chief complaint: pancreatitis , s/p cholecystectomy <Yasmin Tang PA-C - Last Filed: 07/28/25 09:23> Narrative: Sridevi Pruitt I is a 65 year old female with PMH for diabetes, hypertension who underwent lap rita on 07/18/25 for biliary colic, chronic cholecystitis. Procedure and recovery were uncomplicated. She was doing well the following day and was discharged. She was however readmitted 3 days following after she developed new RUQ abd pain associated with significantly elevated LFTs. GI was consulted and MRCP was performed which showed mild intrahepatic biliary ductal dilatation and mild dilatation of the common hepatic duct without obstructing calculus or mass. Her LFTs began to improve and her symptoms resolved. Picture was felt to be suggestive of passed CBD stone. Her diet was advanced and she was discharged to home on 07/24/25. She represented to the ED with complaints of worsening abd pain and nausea. Work up in the ED included CBC, BMP, LFTs which showed total/direct bili of 2.1/1.6, AST/ALT 331/[address] scan abd pelvis was obtained showed no acute findings. GI was consulted for evaluation. She denies fevers, chills, diarrhea. <Yasmin Tang PA-C - Last Filed: 07/28/25 09:23> Review of Systems Review of Systems: Yes all other systems are reviewed and are negative <Yasmin Tang PA-C - Last Filed: 07/28/25 09:23> [facility] Past Medical History Medical History: Medical History Transaminitis Abdominal bloating Postmenopausal bleeding Unsatisfactory cervical Papanicolaou smear Chronic idiopathic constipation Urinary frequency Diverticulitis Epigastric pain COVID-19 Well woman exam Bacterial vaginosis Uterine mass COVID-19 Well woman exam Smoker Bacterial vaginosis Hypertension Tubular adenoma of colon LLQ abdominal pain 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 Gastritis <Yasmin Tang PA-C - Last Filed: 07/28/25 09:23> Family History Family History: Family History Father Family history of prostate problems Colon cancer Mother Tumor <Yasmin Tang PA-C - Last Filed: 07/28/25 09:23> Surgical History Surgical History: Surgical History Hx laparoscopic cholecystectomy Hx of hernia repair History of esophagogastroduodenoscopy (EGD) Hx of colonoscopy <Yasmin Tang PA-C - Last Filed: 07/28/25 09:23> Social History Social History: Social History Household Members: None Housing: House Do you presently have visiting nurse or other home services: Yes ([employer]; 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, cooking) Alcohol intake: never Patient Tobacco Use Status: Never used Tobacco Tobacco use type: Cigarette Cigarettes Per Day: 2 Years Smoked: 20 Smoked in Last 30 Days: Yes e-Cigarette/Vaping Use: Never Used Second Hand Smoke Exposure: No Have you been hit, kicked, punched, or otherwise hurt by someone within the past year? If so, by whom?: No Do you feel safe in your current relationship?: No Current Relationship Is there a partner from a previous relationship who is making you feel unsafe now?: No Are you made to feel afraid or neglected: No Are you DNR?: No Advance Directives: No Advance Directives Information Provided: No Do you have a plan to hurt others: No Plan Recently lost weight without trying: Yes How much weight loss: Unsure Eating poorly because of decreased appetite: Yes Nutrition screen score: 5 Nutrition Risks: No Nutritional Risk Patient : No : No Poor oral hygiene: No service: No Current occupational status: disabled <Yasmin Tang PA-C - Last Filed: 07/28/25 09:23> Meds Allergies/Adverse reactions: Allergies Allergy/AdvReac Type Severity Reaction Status Date / Time No Known Allergies (No Known Allergy Verified 07/27/25 20:36 Allergies*) <Yasmin Tang PA-C - Last Filed: 07/28/25 09:23> Active Medications: Current Medications Acetaminophen (Acetaminophen 325 Mg Tablet) 650 mg PO Q6H PRN PRN Reason: Pain, Mild 1-3,fever,headache Atenolol (Atenolol 25 Mg Tablet) 25 mg PO DAILY [facility]; Protocol Calcium Carbonate (Calcium Carbonate 750 Mg Tab.Chew) 750 mg PO Q4H PRN PRN Reason: Heartburn Heparin Sodium (Porcine) (Heparin Sodium,Porcine 5,000 Unit/Ml Vial) 5,000 unit SUBCUT Q8H [facility] Lactated Ringer's (Lr) 1,000 mls @ 100 mls/hr IVCONT .Q10H [facility] Last Admin: 07/28/25 06:30 Dose: 100 mls/hr Levothyroxine Sodium (Levothyroxine Sodium 75 Mcg Tablet) 75 mcg PO DAILY@0600 [facility] Last Admin: 07/28/25 06:37 Dose: 75 mcg Melatonin (Melatonin 3 Mg Tablet) 6 mg PO BEDTIME PRN PRN Reason: Insomnia Morphine Sulfate (Morphine Sulfate 4 Mg/Ml Cartridge) 3 mg IVPUSH Q4H PRN; Protocol PRN Reason: Pain, Severe (Pain Scale 7-10) Ondansetron HCl (Ondansetron Hcl 4 Mg/2 Ml Vial) 4 mg IVPUSH Q8H PRN PRN Reason: Nausea and Vomiting Sodium Chloride (0.9 % Sodium Chloride Flush 3 Ml Syringe) 3 ml IVFLUSH QSHIFT [facility] Valsartan (Valsartan 80 Mg Tablet) 80 mg PO DAILY [facility]; Protocol <Yasmin Tang PA-C - Last Filed: 07/28/25 09:23> Home medications: Home Medications ?Medication ?Instructions ?Recorded ?Confirmed ?Last Taken ?Type levothyroxine 75 mcg tablet 75 mcg PO DAILY@0630 05/23/22 07/28/25 07/27/25 History sertraline 100 mg tablet 150 mg PO DAILY 05/23/22 07/28/25 07/27/25 History atenolol 25 mg tablet 25 mg PO DAILY 03/24/23 07/28/25 07/27/25 History fluticasone propionate 50 2 spray intranasal DAILY 03/24/23 07/28/25 07/27/25 History mcg/actuation nasal spray,suspension bupropion HCl 150 mg 24 hr tablet, 150 mg PO DAILY 04/20/25 07/28/25 07/27/25 History extended release rosuvastatin 20 mg tablet 20 mg PO BEDTIME 04/20/25 07/28/25 07/27/25 History bupropion HCl 300 mg 24 hr tablet, 300 mg PO DAILY 07/18/25 07/28/25 07/27/25 History extended release fluticasone furoate 100 1 inh inhalation DAILY 07/18/25 07/28/25 07/27/25 History mcg/actuation blister powder for inhalation (Arnuity Ellipta) metformin 500 mg tablet,extended 500 mg PO DAILY@1700 07/18/25 07/28/25 07/27/25 History release 24 hr metoclopramide HCl 10 mg tablet 10 mg PO TIDAC 07/18/25 07/28/25 07/27/25 History (Reglan) valsartan 80 mg tablet 80 mg PO DAILY 07/18/25 07/28/25 07/27/25 History pantoprazole 40 mg tablet,delayed 40 mg PO BID@0630,1630 07/28/25 07/28/25 07/27/25 History release <AJ Greco Last Filed: 07/28/25 09:23> Physical Exam Vital Signs: Vital Signs: Last Vital Signs Temp 98.2 F 07/28/25 08:10 Pulse 63 07/28/25 08:10 Resp 17 07/28/25 08:10 BP 132/67 07/28/25 08:10 Pulse Ox 98 07/28/25 08:10 O2 Del Method Room Air 07/28/25 08:10 BMI result Body Mass Index 32.4 <AJ Greco Last Filed: 07/28/25 09:23> Const: General: comfortable, no acute distress and alert <AJ Greco Last Filed: 07/28/25 09:23> Orientation/consciousness: patient oriented x3 <AJ Greco Last Filed: 07/28/25 09:23> Resp: Effort & Inspection: normal respiratory effort <AJ Greco Last Filed: 07/28/25 09:23> GI: Other: corpulent abdomen <AJ Greco Last Filed: 07/28/25 09:23> Inspection: No distended and Yes incision (clean, mild ecchymosis of right sided incisions) <AJ Greco Last Filed: 07/28/25 09:23> Palpation (GI): Soft to palpation, Tenderness to palpation present (GI) (mild incisional and RUQ/epigastric) and no guarding <AJ Greco Last Filed: 07/28/25 09:23> Skin: General skin exam: no rashes or lesions noted <AJ Greco Last Filed: 07/28/25 09:23> Neuro: General: patient oriented x3 and moves all extremities <AJ Greco Filed: 07/28/25 09:23> Results Results Labs: Short CBC 07/27/25 Range/Units 20:47 WBC 9.0 (4.8-10.8) X10*3/uL Hgb 13.7 (12.0-16.0) g/dl Hct 40.7 (37.0-47.0) % Plt Count 328 D (160-400) X10*3/uL BMP 07/27/25 20:47 Sodium 140 Potassium 4.2 Chloride 103 Carbon Dioxide 29 BUN 13 Creatinine 0.75 Calcium 9.3 Liver Function 07/27/25 Range/Units 20:47 Total Bilirubin 2.1 H (0.0-1.0) mg/dL Direct Bilirubin 1.6 H (0.0-0.5) mg/dL AST 331 H (5-31) U/L ALT 324 H (0-31) U/L Alkaline Phosphatase 733 H (39-117) U/L Albumin 4.1 (3.5-5.0) g/dL Urine 07/27/25 Range/Units 23:13 Urine Color Dark Yellow Urine Appearance Clear Urine pH 7.0 (5.0-9.0) Ur Specific [place] 1.010 (1.005-1.025) Urine Protein Negative (Neg-Trace) mg/dL Urine Glucose (UA) Negative (Negative) mg/dL <AJ Greco Last Filed: 07/28/25 09:23> Abdomen CT scan report/results: report reviewed and image reviewed <Yasmin Tang PA-C - Last Filed: 07/28/25 09:23> Additional studies: labs reviewed <Yasmin Tang PA-C - Last Filed: 07/28/25 09:23> Assessment and Plan (1) Pancreatitis: Status: Acute <Yasmin Tang PA-C - Last Filed: 07/28/25 09:23> 65-year-old female known to the service She had undergone laparoscopic cholecystectomy with Dr. Vega last July 18 and was discharged the following day She was readmitted over the weekend because of pain and abnormal LFTs and was discharged after MRCP seemed to be unremarkable She says she was doing well at home but started to have more pain again on the upper abdomen yesterday Her LFTs last night were again elevated including bilirubin and lipase Her CAT scan did not reveal anything acutely I have discussed the case with Dr. Gutierrez - he feels that the patient has a CBD stone based on MRCP and overall clinical picture For ERCP today Exam otherwise benign I have seen and examined the patient independently <Dex Silva MD - Last Filed: 07/28/25 15:20> (2) Elevated LFTs: Status: Acute <Yasmin Tang PA-C - Last Filed: 07/28/25 09:23> 65 year old female with PMH for diabetes, hypertension who underwent lap rita on 07/18/25 for biliary colic, chronic cholecystitis presenting again with worsening epigastric/RUQ abd pain associated with nausea and elevated liver enzymes. CT scan shows no acute findings. Overall picture consistent with gallstone pancreatitis from retained stone. Case discussed with GI who will proceed with ERCP today. Cont NPO status, IVF, PRN analgesics. Trend LFTs. Hospitalists consulted. <Yasmin Tang PA-C - Last Filed: 07/28/25 09:23> Quality Stroke Does the patient have a stroke diagnosis?: No <Yasmin Tang PA-C - Last Filed: 07/28/25 09:23> VTE Prior VTE?: No <Yasmin Tang PA-C - Last Filed: 07/28/25 09:23> VTE Risk Level:: Medical - moderate - high <Yasmin Tang PA-C - Last Filed: 07/28/25 09:23> VTE Device Contraindication: N/A - Device Ordered <Yasmin Tang PA-C - Last Filed: 07/28/25 09:23> VTE Drug Contraindication: N/A - Med Ordered <Yasmin Tang PA-C - Last Filed: 07/28/25 09:23> Procedures Date of Service Date of Service: 07/28/25 <Yasmin Tang PA-C - Last Filed: 07/28/25 09:23> 07/28/25 <Dex Silva MD - Last Filed: 07/28/25 15:20>
--- NOTE | 2025-07-28 08:58 | MHC.CM.PN ---
Attempted to meet with patient in regards to discharge planning. Patient currently sleeping. No family present. Will attempt to meet again. Continue to monitor for d/c needs.
--- NOTE | 2025-07-28 10:13 | PC.NURSE ---
Report given to short stay JOSE perea via telephone prior to pt transferring to med surg
[2025-07-28 11:43] LABS: Glucose, Whole Blood 129 mg/dL (60-115)
--- NOTE | 2025-07-28 13:21 | HO.ANESPROP2 ---
Documented by User: Dixie Cruz NP 07/28/25 11:12 HPI - Anesthesia Eval Consult details Narrative: 65 yr old female for ERCP s/p cholecystectomy on 07/18/25 with GA, ETT 7.5 PMFSH Active Problems Active Problems: All Active Problems (Updated 07/28/25 @ 09:22 by Yasmin Tang PA-C) Pancreatitis (Acute) Abdominal pain (Acute) Elevated LFTs (Acute) Transaminitis (Acute) Abdominal bloating (Acute) Osteopenia (Acute) Pain of both breasts (Acute) Erosive gastritis (Acute) Leiomyoma (Acute) Pelvic pain (Acute) Delayed gastric emptying (Acute) Tubular adenoma of colon (Acute) Abdominal cramping (Acute) Hemorrhoids (Acute) GERD (gastroesophageal reflux disease) (Acute) Past Medical History Medical History Transaminitis Abdominal bloating Postmenopausal bleeding Unsatisfactory cervical Papanicolaou smear Chronic idiopathic constipation Urinary frequency Diverticulitis Epigastric pain COVID-19 Well woman exam Bacterial vaginosis Uterine mass COVID-19 Well woman exam Smoker Bacterial vaginosis Hypertension Tubular adenoma of colon LLQ abdominal pain 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 Gastritis Family History Family History Father Family history of prostate problems Colon cancer Mother Tumor Family history of problems with anesthesia: No Surgical History Surgical History Hx laparoscopic cholecystectomy Hx of hernia repair History of esophagogastroduodenoscopy (EGD) Hx of colonoscopy History of Problems with Anesthesia: No Social History Social History Household Members: None Housing: House Do you presently have visiting nurse or other home services: Yes (ACTUARY MANAGER; 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, cooking) Alcohol intake: never Patient Tobacco Use Status: Never used Tobacco Tobacco use type: Cigarette Cigarettes Per Day: 2 Years Smoked: 20 Smoked in Last 30 Days: Yes e-Cigarette/Vaping Use: Never Used Second Hand Smoke Exposure: No Have you been hit, kicked, punched, or otherwise hurt by someone within the past year? If so, by whom?: No Do you feel safe in your current relationship?: No Current Relationship Is there a partner from a previous relationship who is making you feel unsafe now?: No Are you made to feel afraid or neglected: No Are you DNR?: No Advance Directives: No Advance Directives Information Provided: No Do you have a plan to hurt others: No Plan Recently lost weight without trying: Yes How much weight loss: Unsure Eating poorly because of decreased appetite: Yes Nutrition screen score: 5 Nutrition Risks: No Nutritional Risk Patient : No : No Poor oral hygiene: No service: No Current occupational status: [employer] Allergies Allergy/AdvReac Type Severity Reaction Status Date / Time No Known Allergies (No Known Allergy Verified 07/27/25 20:36 Allergies*) Active Medications: Current Medications Acetaminophen (Acetaminophen 325 Mg Tablet) 650 mg PO Q6H PRN PRN Reason: Pain, Mild 1-3,fever,headache Atenolol (Atenolol 25 Mg Tablet) 25 mg PO DAILY [facility]; Protocol Last Admin: 07/28/25 09:34 Dose: Not Given Bupropion HCl (Bupropion Hcl Xl 300 Mg Tab.Er.24h) 300 mg PO DAILY [facility] Bupropion HCl (Bupropion Hcl Xl 150 Mg Tab.Er.24h) 150 mg PO DAILY [facility] Calcium Carbonate (Calcium Carbonate 750 Mg Tab.Chew) 750 mg PO Q4H PRN PRN Reason: Heartburn Dextrose (Dextrose 50 % 25 Gm/50 Ml Syringe) 25 gm IVPUSH Q15M PRN; Protocol PRN Reason: per Hypoglycemia Standing Ord. Fluticasone Propionate (Fluticasone Propionate Nasal 16 Gm [place]) 2 spray NOSTRIL-B DAILY [facility] Glucose (Glucose Gel 15 Gm Gel..Gram.) 15 gm PO Q15M PRN; Protocol PRN Reason: per Hypoglycemia Standing Ord. Heparin Sodium (Porcine) (Heparin Sodium,Porcine 5,000 Unit/Ml Vial) 5,000 unit SUBCUT Q8H [facility] Lactated Ringer's (Lr) 1,000 mls @ 100 mls/hr IVCONT .Q10H [facility] Last Admin: 07/28/25 06:30 Dose: 100 mls/hr Insulin Human Lispro (Insulin Lispro 100 Unit/Ml 3 Ml Vial) 0 unit SUBCUT QIDACHS [facility]; Protocol Levothyroxine Sodium (Levothyroxine Sodium 75 Mcg Tablet) 75 mcg PO DAILY@0600 [facility] Last Admin: 07/28/25 06:37 Dose: 75 mcg Melatonin (Melatonin 3 Mg Tablet) 6 mg PO BEDTIME PRN PRN Reason: Insomnia Morphine Sulfate (Morphine Sulfate 4 Mg/Ml Cartridge) 3 mg IVPUSH Q4H PRN; Protocol PRN Reason: Pain, Severe (Pain Scale 7-10) Non-Formulary Medication (Fluticasone Furoate [Arnuity Ellipta]) 1 inhalation INHALE DAILY [facility] Omeprazole (Omeprazole 20 Mg Capsule.Dr) 20 mg PO BID@0630,1630 [facility] Ondansetron HCl (Ondansetron Hcl 4 Mg/2 Ml Vial) 4 mg IVPUSH Q8H PRN PRN Reason: Nausea and Vomiting Sertraline HCl (Sertraline Hcl 50 Mg Tablet) 150 mg PO DAILY [facility] Sodium Chloride (0.9 % Sodium Chloride Flush 3 Ml Syringe) 3 ml IVFLUSH QSHIFT [facility] Last Admin: 07/28/25 09:03 Dose: Not Given Valsartan (Valsartan 80 Mg Tablet) 80 mg PO DAILY [facility]; Protocol Last Admin: 07/28/25 09:35 Dose: 80 mg Home Medications ?Medication ?Instructions ?Recorded ?Confirmed ?Last Taken ?Type levothyroxine 75 mcg tablet 75 mcg PO DAILY@0630 05/23/22 07/28/25 07/27/25 History sertraline 100 mg tablet 150 mg PO DAILY 05/23/22 07/28/25 07/27/25 History atenolol 25 mg tablet 25 mg PO DAILY 03/24/23 07/28/25 07/27/25 History fluticasone propionate 50 2 spray intranasal DAILY 03/24/23 07/28/25 07/27/25 History mcg/actuation nasal spray,suspension bupropion HCl 150 mg 24 hr tablet, 150 mg PO DAILY 04/20/25 07/28/25 07/27/25 History extended release rosuvastatin 20 mg tablet 20 mg PO BEDTIME 04/20/25 07/28/25 07/27/25 History bupropion HCl 300 mg 24 hr tablet, 300 mg PO DAILY 07/18/25 07/28/25 07/27/25 History extended release fluticasone furoate 100 1 inh inhalation DAILY 07/18/25 07/28/25 07/27/25 History mcg/actuation blister powder for inhalation (Arnuity Ellipta) metformin 500 mg tablet,extended 500 mg PO DAILY@1700 07/18/25 07/28/25 07/27/25 History release 24 hr metoclopramide HCl 10 mg tablet 10 mg PO TIDAC 07/18/25 07/28/25 07/27/25 History (Reglan) valsartan 80 mg tablet 80 mg PO DAILY 07/18/25 07/28/25 07/27/25 History pantoprazole 40 mg tablet,delayed 40 mg PO BID@0630,1630 07/28/25 07/28/25 07/27/25 History release Exam Height,Weight and Vital Signs: Height 5 ft 2 in Weight 80.4 kg Last Vital Signs Temp 96.8 F 07/28/25 10:19 Pulse 60 07/28/25 10:19 Resp 18 07/28/25 10:19 BP 145/76 H 07/28/25 10:19 Pulse Ox 97 07/28/25 10:19 O2 Del Method Room Air 07/28/25 10:19 Pertinent Lab Results Pertinent Lab Results: Laboratory Tests 07/27/25 07/27/25 20:47 23:13 WBC 9.0 RBC 4.60 Hgb 13.7 Hct 40.7 MCV 88.5 MCH 29.8 MCHC 33.7 RDW 15.3 Plt Count 328 D MPV 10.6 Immature Gran % (Auto) 0.7 H Neut % (Auto) 62.7 Lymph % (Auto) 27.3 [place] % (Auto) 6.6 Eos % (Auto) 2.1 Baso % (Auto) 0.6 Lymph # (Auto) 2.5 [place] # (Auto) 0.6 Eos # (Auto) 0.2 Baso # (Auto) 0.1 Abs Immat Gran (auto) 0.06 H Absolute Neuts (auto) 5.7 Absolute Nucleated RBC 0.000 Nucleated RBC % (auto) 0.0 Sodium 140 Potassium 4.2 Chloride 103 Carbon Dioxide 29 Anion Gap 12 BUN 13 Creatinine 0.75 Estim Creat Clear Calc 72.4 Estimated GFR > 60 Random Glucose 151 H Calcium 9.3 Total Bilirubin 2.1 H Direct Bilirubin 1.6 H AST 331 H ALT 324 H Alkaline Phosphatase 733 H Total Protein 7.0 Albumin 4.1 Lipase 397 H Urine Color Dark Yellow Urine Appearance Clear Urine pH 7.0 Ur Specific [place] 1.010 Urine Protein Negative Urine Glucose (UA) Negative Urine Ketones Negative Urine Blood Negative Urine Nitrite Negative Ur Leukocyte Esterase Small (1+) H Urine RBC 0-2 Urine WBC 6-10 H Ur Squamous Epith Cells 6-10 Urine Bacteria None Seen Hyaline Casts 0-2 Assessment and Plan Final Anesthetic Review Family History of Problems with Anesthesia: No History of Problems with Anesthesia: No Documented by User: Natalie Proctor DO 07/28/25 13:26 HPI - Anesthesia Eval Consult details Narrative: 65 yr old female for ERCP s/p cholecystectomy on 07/18/25 with GA, ETT 7.5. Grade 3 with Mac 3 blade. Bougie used. PMFSH Past Medical History Medical History Transaminitis Abdominal bloating Postmenopausal bleeding Unsatisfactory cervical Papanicolaou smear Chronic idiopathic constipation Urinary frequency Diverticulitis Epigastric pain COVID-19 Well woman exam Bacterial vaginosis Uterine mass COVID-19 Well woman exam Smoker Bacterial vaginosis Hypertension Tubular adenoma of colon LLQ abdominal pain 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 Gastritis Family History Family History Father Family history of prostate problems Colon cancer Mother Tumor Family history of problems with anesthesia: No Surgical History Surgical History Hx laparoscopic cholecystectomy Hx of hernia repair History of esophagogastroduodenoscopy (EGD) Hx of colonoscopy History of Problems with Anesthesia: No Social History Social History Household Members: None Housing: House Do you presently have visiting nurse or other home services: Yes (ACTUARY MANAGER; 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, cooking) Alcohol intake: never Patient Tobacco Use Status: Never used Tobacco Tobacco use type: Cigarette Cigarettes Per Day: 2 Years Smoked: 20 Smoked in Last 30 Days: Yes e-Cigarette/Vaping Use: Never Used Second Hand Smoke Exposure: No Have you been hit, kicked, punched, or otherwise hurt by someone within the past year? If so, by whom?: No Do you feel safe in your current relationship?: No Current Relationship Is there a partner from a previous relationship who is making you feel unsafe now?: No Are you made to feel afraid or neglected: No Are you DNR?: No Advance Directives: No Advance Directives Information Provided: No Do you have a plan to hurt others: No Plan Recently lost weight without trying: Yes How much weight loss: Unsure Eating poorly because of decreased appetite: Yes Nutrition screen score: 5 Nutrition Risks: No Nutritional Risk Patient : No : No Poor oral hygiene: No service: No Current occupational status: [employer] Allergies Allergy/AdvReac Type Severity Reaction Status Date / Time No Known Allergies (No Known Allergy Verified 07/27/25 20:36 Allergies*) Home Medications ?Medication ?Instructions ?Recorded ?Confirmed ?Last Taken ?Type levothyroxine 75 mcg tablet 75 mcg PO DAILY@0630 05/23/22 07/28/25 07/27/25 History sertraline 100 mg tablet 150 mg PO DAILY 05/23/22 07/28/25 07/27/25 History atenolol 25 mg tablet 25 mg PO DAILY 03/24/23 07/28/25 07/27/25 History fluticasone propionate 50 2 spray intranasal DAILY 03/24/23 07/28/25 07/27/25 History mcg/actuation nasal spray,suspension bupropion HCl 150 mg 24 hr tablet, 150 mg PO DAILY 04/20/25 07/28/25 07/27/25 History extended release rosuvastatin 20 mg tablet 20 mg PO BEDTIME 04/20/25 07/28/25 07/27/25 History bupropion HCl 300 mg 24 hr tablet, 300 mg PO DAILY 07/18/25 07/28/25 07/27/25 History extended release fluticasone furoate 100 1 inh inhalation DAILY 07/18/25 07/28/25 07/27/25 History mcg/actuation blister powder for inhalation (Arnuity Ellipta) metformin 500 mg tablet,extended 500 mg PO DAILY@1700 07/18/25 07/28/25 07/27/25 History release 24 hr metoclopramide HCl 10 mg tablet 10 mg PO TIDAC 07/18/25 07/28/25 07/27/25 History (Reglan) valsartan 80 mg tablet 80 mg PO DAILY 07/18/25 07/28/25 07/27/25 History pantoprazole 40 mg tablet,delayed 40 mg PO BID@0630,1630 07/28/25 07/28/25 07/27/25 History release Exam Exam Date and Time: 07/28/25 1320 Airway Mallampati Class: II TM Dist: <=3cm Neck ROM: Full Loose/Missing/Broken Teeth: No (patient denies any loose or broken teeth) Heart: S1S2 Lungs: CTAB Assessment and Plan Assessment Anesthesia Assessment: Anesthesia Plan Discussed and Chart Reviewed Final Anesthetic Review Family History of Problems with Anesthesia: No History of Problems with Anesthesia: No NPO: Yes ASA Class: II Final Preanesthetic Review: No Changes in Pt Med Stat, Meds/Allgs Chart Reviewed, Consent Obtained/Reviewed (train gate attendant at bedside for translation) and Anes Risks/Benef Reviewed Patient Risk: Low Procedure Risk: Low Anesthetic Plan Anesthetic Plan: GA and Agree w/ Assess. and Plan Disposition: Standard PACU
--- NOTE | 2025-07-28 13:32 | MHC.SHP ---
Pre-Procedural Eval Section A - 24 Hr Update-Section A only Date of Service: 07/28/25 The patient is an INPATIENT: Yes Changes since office visit: No Cold of Flu in the past 2 weeks, No New Medical Problems, No Changes in Medication and No Patient answered all questions The patient has been examined within 24 hours of the surgical procedure. The History & Physical has been completed within 30 days and I have reviewed it.: Yes Section B - Complete if H&P > 30 days Chief Complaint: pancreatitis , s/p cholecystectomy Allergies: Allergies Allergy/AdvReac Type Severity Reaction Status Date / Time No Known Allergies (No Known Allergy Verified 07/27/25 20:36 Allergies*) Plan I have reviewed the history and physical and performed a pertinent physical examination on my patient. No changes have occurred unless specified. Time Spent With Patient Time: Total time managing care of this patient today ____ minutes.
--- NOTE | 2025-07-28 14:29 | P.BOP_ITS ---
Brief Operative Note Date of Service: 07/28/25 Pre-op diagnosis: gallstone pancreatitis Post-op diagnosis: same Procedure: ERCP Surgeon: Arya Gutierrez MD Anesthesia: GETA Was an Structural Steel Erection Supervisor used for this Procedure?: No Estimated blood loss (mL): 0 Pathology: none sent Condition: stable Disposition: PACU
--- NOTE | 2025-07-28 14:30 | PM.EVENT ---
Event Note Date of Service: 07/28/25 Event Note: ERCP note dictated 10 mm sphincterotomy done without complications multiple sweeps with balloon, no stones seen good drainage of clear yellow bile post balloon sweeps. advance diet follow lfts Time Spent With Patient Time: Total time managing care of this patient today ____ minutes.
--- NOTE | 2025-07-28 15:22 | PM.EVENT ---
Event Note Date of Service: 07/28/25 Event Note: ERCP done - no stones seen Sphincterotomy done with good flow by Patient looks well Abdomen is soft and benign Repeat LFTs and lipase in the morning Possible home tomorrow Time Spent With Patient Time: Total time managing care of this patient today ____ minutes.
[2025-07-28 17:18] LABS: Glucose, Whole Blood 182 mg/dL (60-115)
[2025-07-28] MEDS: Fluticasone Propionate 100 MCG BLST.W.DEV 1 PUFF INHALE (19:54)
[2025-07-28 20:29] LABS: Glucose, Whole Blood 253 mg/dL (60-115)
--- NOTE | 2025-07-28 23:14 | CONS_ITS ---
DATE OF SERVICE: 07/28/2025 REFERRING PHYSICIAN: Dr. Silva REASON FOR CONSULTATION: Abdominal pain and elevated liver function tests. HISTORY OF PRESENT ILLNESS: The patient is a pleasant 65-year-old woman who was admitted to the hospital after presenting to the emergency department yesterday evening with complaints of abdominal pain and nausea. She underwent laparoscopic cholecystectomy on July 18 and was discharged the following day. She returned to the emergency department on the and was seen in consultation by Dr. Frias because of elevated liver function tests, jaundice, and abdominal pain. MRCP was obtained, which is not interpreted as showing any stones and the patient had improvement in her liver function tests and was discharged. She returned to the emergency department yesterday evening with more complaints of right upper quadrant pain and liver function tests were also again elevated with a bilirubin of 2.1, and transaminases in the 300 to 400 range. Alkaline phosphatase was elevated at 733. PAST MEDICAL HISTORY: 1. Laparoscopic cholecystectomy as above. 2. Hypertension. 3. Diabetes mellitus. 4. Hyperlipidemia. 5. Gastroesophageal reflux disease. CURRENT MEDICATIONS: Her current medication list is reviewed in the chart. ALLERGIES: THERE ARE NONE REPORTED. FAMILY HISTORY: This is reviewed with the patient and is noncontributory. SOCIAL HISTORY: She does smoke. She denies significant alcohol intake. REVIEW OF SYSTEMS: SKIN: No pruritus. HEENT: Negative. CARDIOPULMONARY: She denies shortness of breath or chest pain. GASTROINTESTINAL: As above. GENITOURINARY: Negative. NEUROPSYCHIATRIC: Negative. PHYSICAL EXAMINATION: GENERAL: Shows a pleasant female, lying comfortably in bed. VITAL SIGNS: Reviewed in the electronic medical record and are stable. SKIN: Anicteric. HEENT: Shows no scleral icterus. NECK: Without lymphadenopathy or thyromegaly. LUNGS: Clear. HEART: Shows regular rate and rhythm. S1, S2. No murmur. ABDOMEN: Soft without focal masses or tenderness. Bowel sounds are present. No organomegaly is noted. EXTREMITIES: Without edema. LABORATORY DATA AND IMAGING STUDIES: Reviewed. Review of her MRI shows a questionable filling defect in the distal common bile duct. IMPRESSION: Right upper quadrant pain with elevated liver function tests, status post cholecystectomy. Based on her presentation and symptoms, there may be a small stone in the distal duct that is not showing up on the official MRI interpretation. I would recommend proceeding with ERCP. I have discussed the risks and benefits of the procedure with the patient via e commerce director. She understands these and agrees to proceed. Thanks for asking me to see her. I will follow her in the hospital with you. MD SLIME Orellana/AYLIN / [id number]
--- NOTE | 2025-07-28 23:59 | OP_ITS ---
DATE OF SERVICE: 07/28/2025 SURGEON: Arya Gutierrez MD INDICATIONS: Gallstone pancreatitis and elevated liver function tests, post lap rita. PREOPERATIVE DIAGNOSIS: POSTOPERATIVE DIAGNOSIS: PROCEDURE PERFORMED: ERCP with sphincterotomy. ESTIMATED BLOOD LOSS: COMPLICATIONS: ANESTHESIA: General anesthesia. ASSISTANTS: SPECIMENS: DESCRIPTION OF PROCEDURE: A history and physical was performed. The risks and benefits of the procedure were explained to the patient, and informed consent was obtained. The patient was placed in the prone position with a wedge under the right shoulder. The Olympus video duodenoscope was introduced into the esophagus, stomach, and duodenum. Examination was performed. The scope was removed. She tolerated the procedure well and was returned to the recovery area in stable condition. FINDINGS: Endoscopy: Limited examination of the esophagus, stomach, and duodenum; was within normal limits. The major papilla drained clear yellow bile and was slightly patulous. A sphincterotome and guidewire were used to cannulate the common bile duct and cholangiography was performed showing no definite filling defect, but because of the patient's presentation, it was elected to perform sphincterotomy. This was done to 10 mm with no immediate complications. Multiple sweeps of a 10 mm balloon were performed showing no definite filling defects removed from the common bile duct. There was excellent drainage of clear yellow bile at the termination of the procedure. No pancreatogram was attempted or obtained. IMPRESSION: Gallstone pancreatitis. RECOMMENDATION: 1. Monitor LFTs. 2. Advance diet. 3. Follow clinically. MD SLIME Orellana/AYLIN / [id number]
[2025-07-29] VITALS (8 sets, daily range): BP systolic 123–139; BP diastolic 56–75; PULSE 55–70; RESP 16–18; TEMP 36.3–37.1; O2SAT 94–100
[2025-07-29] MEDS: Lactated Ringers 1,000 ML 100 ML IVCONT (05:57)
[2025-07-29 07:30] LABS: Hematocrit 35.4 % (37.0-47.0); Hemoglobin 11.8 g/dl (12.0-16.0); Mean Corpuscular HGB Conc 33.3 g/dl (31.0-35.0); Mean Corpuscular Hemoglobin 29.6 pg (27.0-33.0); Mean Corpuscular Volume 88.7 fL (80.0-98.0); NRBC Abs Auto 0.000 X10*3/uL (0.0-0.012); NRBC Pct Auto 0.0 /100WBC (0.0-0.2); Platelet Count 248 X10*3/uL (160-400); Red Blood Count 3.99 X10*6/uL (4.20-5.50); White Blood Count 8.4 X10*3/uL (4.8-10.8)
[2025-07-29 07:35] LABS: Alanine Aminotransferase 346 U/L (0-31); Albumin Level 3.3 g/dL (3.5-5.0); Alkaline Phosphatase 682 U/L (39-117); Aspartate Amino Transferase 229 U/L (5-31); Lipase 155 U/L (8-78); Total Protein 5.9 g/dL (6.5-8.0)
[2025-07-29 07:37] LABS: Alanine Aminotransferase 347 U/L (0-31); Albumin Level 3.4 g/dL (3.5-5.0); Alkaline Phosphatase 679 U/L (39-117); Aspartate Amino Transferase 228 U/L (5-31); Lipase 154 U/L (8-78); Total Protein 5.8 g/dL (6.5-8.0)
[2025-07-29 07:40] LABS: Glucose, Whole Blood 164 mg/dL (60-115)
[2025-07-29] MEDS: Fluticasone Propionate 100 MCG BLST.W.DEV 1 PUFF INHALE ×2 (08:05→20:28)
[2025-07-29] MEDS: buPROPion HCl XL 150 MG TAB.ER.24H PO (08:53)
[2025-07-29] MEDS: buPROPion HCl XL 300 MG TAB.ER.24H PO (08:53)
--- NOTE | 2025-07-29 09:10 | P.PNIM_ITS ---
Subjective Subjective Date of Service: 07/29/25 Interval History: Seen and examined this morning Follow-up for medical consultation History obtained with the assistance of a table assembler No overnight events Patient awake alert, in no acute distress. No significant abdominal pain at this time Tolerating diet Review of Systems Review of Systems: Yes all other systems are reviewed and are negative Constitutional Constitutional: Denies chills and Denies fever(s) Cardiovascular Cardiovascular: Denies chest pain, Denies palpitations and Denies dyspnea Respiratory Respiratory: Denies cough and Denies dyspnea Gastrointestinal Gastrointestinal: Denies abdominal pain, Denies nausea and Denies vomiting Endocrine Endocrine: Denies palpitations Physical Exam 2 Vital Signs: Vital Signs: Last Vital Signs Temp 97.6 F 07/29/25 07:44 Pulse 57 07/29/25 08:52 Resp 16 07/29/25 08:06 BP 128/70 07/29/25 08:53 Pulse Ox 95 07/29/25 07:44 O2 Del Method Room Air 07/29/25 07:44 O2 Flow Rate 3 07/28/25 16:03 BMI result Body Mass Index 32.4 Const: General: cooperative, comfortable, alert and awake Nutritional Appearance: overweight Orientation/consciousness: patient oriented x3 Resp: Effort & Inspection: normal respiratory effort, able to speak in complete sentences, no respiratory distress and no use of accessory muscles Cardio: Rate: regular rate GI: Other: mild ecchymosis right side and umbilical incisions Inspection: No distended Palpation (GI): Soft to palpation Neuro: General: patient oriented x3, moves all extremities and CN's II-XI intact bilaterally Extrem: Other: LLE chronically swollen compare to RLE as per pt Objective Data Active Medications Acetaminophen (Acetaminophen 325 Mg Tablet) 650 mg PO Q6H PRN PRN Reason: Pain, Mild 1-3,fever,headache Last Admin: 07/29/25 03:26 Dose: 650 mg Documented By: ELIZABETH Atenolol (Atenolol 25 Mg Tablet) 25 mg PO DAILY [facility]; Protocol Last Admin: 07/29/25 08:52 Dose: Not Given Documented By: BRYAN Non-Admin Reason: Physician Held Med Comments: held for HR <60 per SRy Bingham via [employer]. Bupropion HCl (Bupropion Hcl Xl 300 Mg Tab.Er.24h) 300 mg PO DAILY [facility] Last Admin: 07/29/25 08:53 Dose: 300 mg Documented By: BRYAN Bupropion HCl (Bupropion Hcl Xl 150 Mg Tab.Er.24h) 150 mg PO DAILY [facility] Last Admin: 07/29/25 08:53 Dose: 150 mg Documented By: BRYAN Calcium Carbonate (Calcium Carbonate 750 Mg Tab.Chew) 750 mg PO Q4H PRN PRN Reason: Heartburn Dextrose (Dextrose 50 % 25 Gm/50 Ml Syringe) 25 gm IVPUSH Q15M PRN; Protocol PRN Reason: per Hypoglycemia Standing Ord. Fluticasone Propionate (Fluticasone Propionate 100 Mcg Blst.W.Dev) 1 puff INHALE RBID [facility] Last Admin: 07/29/25 08:05 Dose: 1 puff Documented By: ZAIN Fluticasone Propionate (Fluticasone Propionate Nasal 16 Gm [place]) 2 spray NOSTRIL-B DAILY [facility] Last Admin: 07/29/25 09:03 Dose: Not Given Documented By: BRYAN Non-Admin Reason: Med Not Available Glucose (Glucose Gel 15 Gm Gel..Gram.) 15 gm PO Q15M PRN; Protocol PRN Reason: per Hypoglycemia Standing Ord. Heparin Sodium (Porcine) (Heparin Sodium,Porcine 5,000 Unit/Ml Vial) 5,000 unit SUBCUT Q8H [facility] Lactated Ringer's (Lr) 1,000 mls @ 100 mls/hr IVCONT .Q10H [facility] Last Admin: 07/29/25 05:57 Dose: 100 mls/hr Documented By: ELIZABETH Insulin Human Lispro (Insulin Lispro 100 Unit/Ml 3 Ml Vial) 0 unit SUBCUT QIDACHS [facility]; Protocol Last Admin: 07/28/25 20:36 Dose: 6 unit Levothyroxine Sodium (Levothyroxine Sodium 75 Mcg Tablet) 75 mcg PO DAILY@0600 [facility] Last Admin: 07/29/25 05:57 Dose: 75 mcg Documented By: ELIZABETH Melatonin (Melatonin 3 Mg Tablet) 6 mg PO BEDTIME PRN PRN Reason: Insomnia Morphine Sulfate (Morphine Sulfate 4 Mg/Ml Cartridge) 3 mg IVPUSH Q4H PRN; Protocol PRN Reason: Pain, Severe (Pain Scale 7-10) Last Admin: 07/28/25 18:47 Dose: 3 mg Documented By: DUARTE Naloxone HCl (Naloxone Hcl 0.4 Mg/Ml Vial) 0.04 mg IVPUSH Q5M PRN PRN Reason: Excessive sedation or RR < 8 Omeprazole (Omeprazole 20 Mg Capsule.Dr) 20 mg PO BID@0630,1630 [facility] Last Admin: 07/29/25 06:00 Dose: 20 mg Documented By: ELIZABETH Ondansetron HCl (Ondansetron Hcl 4 Mg/2 Ml Vial) 4 mg IVPUSH Q8H PRN PRN Reason: Nausea and Vomiting Sertraline HCl (Sertraline Hcl 50 Mg Tablet) 150 mg PO DAILY [facility] Last Admin: 07/29/25 08:53 Dose: 150 mg Documented By: BRYAN Sodium Chloride (0.9 % Sodium Chloride Flush 3 Ml Syringe) 3 ml IVFLUSH QSHIFT [facility] Last Admin: 07/29/25 08:53 Dose: Not Given Documented By: BRYAN Non-Admin Reason: IV Running Valsartan (Valsartan 80 Mg Tablet) 80 mg PO DAILY [facility]; Protocol Last Admin: 07/29/25 08:53 Dose: 80 mg Documented By: BRYAN Labs 07/29/25 06:08 07/27/25 20:47 Labs: Laboratory Results - last 24 hr 07/28/25 07/28/25 07/28/25 11:39 17:15 20:23 MCV MCH MCHC RDW Plt Count MPV Absolute Nucleated RBC Nucleated RBC % (auto) POC Glucose 129 H 182 H 253 H Total Bilirubin Direct Bilirubin AST ALT Alkaline Phosphatase Total Protein Albumin Lipase 07/29/25 07/29/25 07/29/25 06:08 06:08 06:08 MCV 88.7 MCH 29.6 MCHC 33.3 RDW 15.2 Plt Count 248 MPV 11.2 Absolute Nucleated RBC 0.000 Nucleated RBC % (auto) 0.0 POC Glucose Total Bilirubin 0.8 0.8 Direct Bilirubin 0.5 0.5 AST 228 H ALT Alkaline Phosphatase Total Protein Albumin Lipase 07/29/25 07/29/25 07/29/25 06:08 06:08 06:08 MCV MCH MCHC RDW Plt Count MPV Absolute Nucleated RBC Nucleated RBC % (auto) POC Glucose Total Bilirubin Direct Bilirubin AST 229 H ALT 347 H 346 H Alkaline Phosphatase 679 H 682 H Total Protein 5.8 L Albumin Lipase 07/29/25 07/29/25 07/29/25 06:08 06:08 06:08 MCV MCH MCHC RDW Plt Count MPV Absolute Nucleated RBC Nucleated RBC % (auto) POC Glucose Total Bilirubin Direct Bilirubin AST ALT Alkaline Phosphatase Total Protein 5.9 L Albumin 3.4 L 3.3 L Lipase 154 H 155 H 07/29/25 07:12 MCV MCH MCHC RDW Plt Count MPV Absolute Nucleated RBC Nucleated RBC % (auto) POC Glucose 164 H Total Bilirubin Direct Bilirubin AST ALT Alkaline Phosphatase Total Protein Albumin Lipase Assessment and Plan (1) Transaminitis: Status: Acute Plan This is a 65 year old Czech speaking female with history of HTN, HLD, DM, recent cholecystectomy who presents to the emergency department with recurrent abdominal pain admitted to the surgical service abdominal pain recent cholecystectomy, MRCP on 07/22 showed mild intrahepatic biliary duct dilation and mild dilation of CBD but no stones elevated LFTs/lipase concerning for gallstone pancreatitis GI following, s/p ERCP with sphincterotomy- no definite filling defect seen tolerating diet LFTs, lipase trending down DM ADA diet hold metformin SSI, POCs HTN continue atenolol, valsartan HLD hold statin as above mood continue sertraline, bupropion Hypothyroidism Continue Synthroid gerd continue PPI dvt ppx as per surgical team Thank you for allowing us to participate in the care of this patient. We will follow along with you Quality Stroke Does the patient have a stroke diagnosis?: No VTE Prior VTE?: No VTE Risk Level:: Medical - moderate - high VTE Device Contraindication: N/A - Device Ordered VTE Drug Contraindication: N/A - Med Ordered
[2025-07-29] MEDS: Milk of Magnesia 30 ML ORAL.SUSP 15 ML PO (11:25)
[2025-07-29 11:40] LABS: Glucose, Whole Blood 126 mg/dL (60-115)
--- NOTE | 2025-07-29 13:00 | MHC.CM.PN ---
PT LIVES ALONE AND HAS DAILY DREDGE LEVER OPERATOR SERVICES SHE HAS NO DME COMPLETED A HCP TODAY NAMING HER DREDGE LEVER OPERATOR, LEEANN SPARROW [phone], HER AGENT PCP: RADAMES WIGGINS IMM DELIVERED DCP: HOME RESUME DREDGE LEVER OPERATOR SERVICES DREDGE LEVER OPERATOR TO TRANSPORT
--- NOTE | 2025-07-29 13:04 | HO.POSTANES ---
Post Anesthesia Evaluation Post Anesthesia Evaluation Date of Service: 07/29/25 Vital Signs: Vital Signs Temp Pulse Resp BP Pulse Ox O2 Del Method 07/29/25 08:53 128/70 07/29/25 08:52 57 128/70 07/29/25 08:06 56 16 07/29/25 07:44 97.6 F 55 18 134/69 95 Room Air 07/29/25 03:04 98.7 F 63 18 139/75 100 Room Air Anesthesia: General Endotracheal-GETA Mental Status: Awake Pain Control: Satisfactory Nausea/Vomiting: None Hydration: Adequate Anesthesia-Related Issues: No Anes. Related Issues
[2025-07-29 16:08] LABS: Glucose, Whole Blood 253 mg/dL (60-115)
[2025-07-29] MEDS: 0.9 % Sodium Chloride Flush 3 ML SYRINGE IVFLUSH ×2 (16:23→20:41)
[2025-07-29 20:03] LABS: Glucose, Whole Blood 130 mg/dL (60-115)
[2025-07-30] VITALS (7 sets, daily range): BP systolic 137–151; BP diastolic 67–73; PULSE 53–63; RESP 18; TEMP 36–37; O2SAT 94–99
[2025-07-30 07:15] LABS: Alanine Aminotransferase 220 U/L (0-31); Albumin Level 3.5 g/dL (3.5-5.0); Alkaline Phosphatase 511 U/L (39-117); Total Protein 6.0 g/dL (6.5-8.0)
--- NOTE | 2025-07-30 07:34 | P.PNGS_ITS ---
Subjective Subjective Date of Service: 07/29/25 Patient reports: no new complaints Interval history: Late entry: Patient tolerating some p.o. but feels nauseous this morning. Does not feel ready for discharge to home. Physical Exam 2 Vital Signs: Vital Signs: Last Vital Signs Temp 98.6 F 07/30/25 03:23 Pulse 60 07/30/25 03:23 Resp 18 07/30/25 03:23 BP 141/67 H 07/30/25 03:23 Pulse Ox 99 07/30/25 03:23 O2 Del Method Room Air 07/30/25 03:23 O2 Flow Rate 3 07/28/25 16:03 BMI result Body Mass Index 32.4 Const: General: no acute distress Nutritional Appearance: well nourished Orientation/consciousness: patient oriented x3 Resp: Effort & Inspection: normal respiratory effort GI: Palpation (GI): Soft to palpation, nontender, no guarding and not rigid Skin: Other: Warm, dry, no rash Neuro: General: patient oriented x3 Extrem: Other: No edema Objective Data Active Medications Acetaminophen (Acetaminophen 325 Mg Tablet) 650 mg PO Q6H PRN PRN Reason: Pain, Mild 1-3,fever,headache Last Admin: 07/29/25 23:12 Dose: 650 mg Documented By: ELIZABETH Atenolol (Atenolol 25 Mg Tablet) 25 mg PO DAILY [facility]; Protocol Last Admin: 07/29/25 08:52 Dose: Not Given Documented By: BRYAN Non-Admin Reason: Physician Held Med Comments: held for HR <60 per Manuel Bingham via [employer]. Bupropion HCl (Bupropion Hcl Xl 300 Mg Tab.Er.24h) 300 mg PO DAILY [facility] Last Admin: 07/29/25 08:53 Dose: 300 mg Documented By: BRYAN Comments: verified correct administration with pharmacist Otilio Bupropion HCl (Bupropion Hcl Xl 150 Mg Tab.Er.24h) 150 mg PO DAILY [facility] Last Admin: 07/29/25 08:53 Dose: 150 mg Documented By: BRYAN Comments: verified correct medication with pharmacist Otilio Calcium Carbonate (Calcium Carbonate 750 Mg Tab.Chew) 750 mg PO Q4H PRN PRN Reason: Heartburn Last Admin: 07/29/25 23:12 Dose: 750 mg Documented By: ELIZABETH Dextrose (Dextrose 50 % 25 Gm/50 Ml Syringe) 25 gm IVPUSH Q15M PRN; Protocol PRN Reason: per Hypoglycemia Standing Ord. Docusate Sodium (Docusate Sodium 100 Mg Capsule) 100 mg PO BEDTIME [facility] Last Admin: 07/29/25 20:41 Dose: 100 mg Documented By: ELIZABETH Fluticasone Propionate (Fluticasone Propionate 100 Mcg Blst.W.Dev) 1 puff INHALE RBID [facility] Last Admin: 07/29/25 20:28 Dose: 1 puff Documented By: NIR Fluticasone Propionate (Fluticasone Propionate Nasal 16 Gm [place]) 2 spray NOSTRIL-B DAILY [facility] Last Admin: 07/29/25 09:03 Dose: Not Given Documented By: BRYAN Non-Admin Reason: Med Not Available Glucose (Glucose Gel 15 Gm Gel..Gram.) 15 gm PO Q15M PRN; Protocol PRN Reason: per Hypoglycemia Standing Ord. Heparin Sodium (Porcine) (Heparin Sodium,Porcine 5,000 Unit/Ml Vial) 5,000 unit SUBCUT Q8H [facility] On Hold: 07/29/25 10:00 Insulin Human Lispro (Insulin Lispro 100 Unit/Ml 3 Ml Vial) 0 unit SUBCUT QIDACHS [facility]; Protocol Last Admin: 07/29/25 20:45 Dose: Not Given Documented By: ELIZABETH Non-Admin Reason: No Insulin Coverage Comments: POC 130 Levothyroxine Sodium (Levothyroxine Sodium 75 Mcg Tablet) 75 mcg PO DAILY@0600 [facility] Last Admin: 07/30/25 06:10 Dose: 75 mcg Documented By: ELIZABETH Magnesium Hydroxide (Milk Of Magnesia 30 Ml Oral.Susp) 15 ml PO DAILY PRN PRN Reason: Constipation Last Admin: 07/29/25 11:25 Dose: 15 ml Documented By: BRYAN Melatonin (Melatonin 3 Mg Tablet) 6 mg PO BEDTIME PRN PRN Reason: Insomnia Morphine Sulfate (Morphine Sulfate 4 Mg/Ml Cartridge) 3 mg IVPUSH Q4H PRN; Protocol PRN Reason: Pain, Severe (Pain Scale 7-10) Last Admin: 07/29/25 20:41 Dose: 3 mg Documented By: ELIZABETH Naloxone HCl (Naloxone Hcl 0.4 Mg/Ml Vial) 0.04 mg IVPUSH Q5M PRN PRN Reason: Excessive sedation or RR < 8 Omeprazole (Omeprazole 20 Mg Capsule.Dr) 20 mg PO BID@0630,1630 [facility] Last Admin: 07/30/25 06:10 Dose: 20 mg Documented By: ELIZABETH Ondansetron HCl (Ondansetron Hcl 4 Mg/2 Ml Vial) 4 mg IVPUSH Q8H PRN PRN Reason: Nausea and Vomiting Sertraline HCl (Sertraline Hcl 50 Mg Tablet) 150 mg PO DAILY [facility] Last Admin: 07/29/25 08:53 Dose: 150 mg Documented By: BRYAN Sodium Chloride (0.9 % Sodium Chloride Flush 3 Ml Syringe) 3 ml IVFLUSH QSHIFT [facility] Last Admin: 07/29/25 20:41 Dose: 3 ml Documented By: ELIZABETH Valsartan (Valsartan 80 Mg Tablet) 80 mg PO DAILY [facility]; Protocol Last Admin: 07/29/25 08:53 Dose: 80 mg Documented By: BRYAN Labs 07/29/25 06:08 07/27/25 20:47 Labs: Laboratory Results - last 24 hr 07/29/25 07/29/25 07/29/25 06:08 06:08 06:08 Hold Purple Top POC Glucose Total Bilirubin 0.8 0.8 Direct Bilirubin 0.5 0.5 AST 228 H ALT Alkaline Phosphatase Total Protein Albumin Lipase 07/29/25 07/29/25 07/29/25 06:08 06:08 06:08 Hold Purple Top POC Glucose Total Bilirubin Direct Bilirubin AST 229 H ALT 347 H 346 H Alkaline Phosphatase 679 H 682 H Total Protein 5.8 L Albumin Lipase 07/29/25 07/29/25 07/29/25 06:08 06:08 06:08 Hold Purple Top POC Glucose Total Bilirubin Direct Bilirubin AST ALT Alkaline Phosphatase Total Protein 5.9 L Albumin 3.4 L 3.3 L Lipase 154 H 155 H 07/29/25 07/29/25 07/29/25 07:12 11:02 15:59 Hold Purple Top POC Glucose 164 H 126 H 253 H Total Bilirubin Direct Bilirubin AST ALT Alkaline Phosphatase Total Protein Albumin Lipase 07/29/25 07/30/25 07/30/25 19:59 06:28 06:44 Hold Purple Top SEE NOTE POC Glucose 130 H Total Bilirubin 0.7 Direct Bilirubin 0.4 AST ALT 220 H Alkaline Phosphatase 511 H Total Protein 6.0 L Albumin 3.5 Lipase Microbiology Microbiology Results: Microbiology 07/27/25 Unknown Urine Culture - Final Urine clean catch - Clean Catch Midstream Procedures Date of Service Date of Service: 07/30/25 Progress Note: A&P Assessment and plan (1) Pancreatitis: Status: Acute (2) Elevated LFTs: Status: Acute Plan Status post laparoscopic cholecystectomy on 07/18/2025 and ERCP for common bile duct stone on 07/28/2025. She feels improved but queasy this morning. We will continue to monitor LFTs which are marginally improved. Continue current diet and recheck labs in a.m.. Discussed with patient's daughter as well. Time Spent With Patient Time: Total time managing care of this patient today ____ minutes. Quality Stroke Does the patient have a stroke diagnosis?: No VTE Prior VTE?: No VTE Risk Level:: Medical - moderate - high VTE Device Contraindication: N/A - Device Ordered VTE Drug Contraindication: N/A - Med Ordered
[2025-07-30 07:37] LABS: Glucose, Whole Blood 131 mg/dL (60-115)
[2025-07-30 07:46] LABS: Aspartate Amino Transferase 66 U/L (5-31)
[2025-07-30] MEDS: Fluticasone Propionate 100 MCG BLST.W.DEV 1 PUFF INHALE ×2 (08:10→20:59)
--- NOTE | 2025-07-30 08:40 | PM.PNGS ---
Subjective Subjective Date of Service: 07/30/25 Interval history: Patient feels much improved today. Tolerating diet without any further nausea. Physical Exam Vital Signs: Vital Signs: Last Vital Signs Temp 96.8 F 07/30/25 07:37 Pulse 61 07/30/25 08:11 Resp 18 07/30/25 08:11 BP 151/73 H 07/30/25 07:37 Pulse Ox 94 07/30/25 07:37 O2 Del Method Room Air 07/30/25 07:37 O2 Flow Rate 3 07/28/25 16:03 BMI result Body Mass Index 32.4 Const: General: no acute distress Nutritional Appearance: well nourished Orientation/consciousness: patient oriented x3 Resp: Effort & Inspection: normal respiratory effort GI: Palpation (GI): Soft to palpation, nontender, no guarding and not rigid Skin: Other: Warm, dry, no rash Neuro: General: patient oriented x3 Extrem: Other: No edema Objective Data Active Medications Acetaminophen (Acetaminophen 325 Mg Tablet) 650 mg PO Q6H PRN PRN Reason: Pain, Mild 1-3,fever,headache Last Admin: 07/29/25 23:12 Dose: 650 mg Documented By: ELIZABETH Atenolol (Atenolol 25 Mg Tablet) 25 mg PO DAILY [facility]; Protocol Last Admin: 07/29/25 08:52 Dose: Not Given Documented By: BRYAN Non-Admin Reason: Physician Held Med Comments: held for HR <60 per Manuel Bingham via [employer]. Bupropion HCl (Bupropion Hcl Xl 300 Mg Tab.Er.24h) 300 mg PO DAILY [facility] Last Admin: 07/29/25 08:53 Dose: 300 mg Documented By: BRYAN Comments: verified correct administration with pharmacist Otilio Bupropion HCl (Bupropion Hcl Xl 150 Mg Tab.Er.24h) 150 mg PO DAILY [facility] Last Admin: 07/29/25 08:53 Dose: 150 mg Documented By: BRYAN Comments: verified correct medication with pharmacist Otilio Calcium Carbonate (Calcium Carbonate 750 Mg Tab.Chew) 750 mg PO Q4H PRN PRN Reason: Heartburn Last Admin: 07/29/25 23:12 Dose: 750 mg Documented By: ELIZABETH Dextrose (Dextrose 50 % 25 Gm/50 Ml Syringe) 25 gm IVPUSH Q15M PRN; Protocol PRN Reason: per Hypoglycemia Standing Ord. Docusate Sodium (Docusate Sodium 100 Mg Capsule) 100 mg PO BEDTIME [facility] Last Admin: 07/29/25 20:41 Dose: 100 mg Documented By: ELIZABETH Fluticasone Propionate (Fluticasone Propionate 100 Mcg Blst.W.Dev) 1 puff INHALE RBID [facility] Last Admin: 07/30/25 08:10 Dose: 1 puff Documented By: MICHELLE Fluticasone Propionate (Fluticasone Propionate Nasal 16 Gm [place]) 2 spray NOSTRIL-B DAILY [facility] Last Admin: 07/29/25 09:03 Dose: Not Given Documented By: BRYAN Non-Admin Reason: Med Not Available Glucose (Glucose Gel 15 Gm Gel..Gram.) 15 gm PO Q15M PRN; Protocol PRN Reason: per Hypoglycemia Standing Ord. Heparin Sodium (Porcine) (Heparin Sodium,Porcine 5,000 Unit/Ml Vial) 5,000 unit SUBCUT Q8H [facility] On Hold: 07/29/25 10:00 Insulin Human Lispro (Insulin Lispro 100 Unit/Ml 3 Ml Vial) 0 unit SUBCUT QIDACHS [facility]; Protocol Last Admin: 07/30/25 07:45 Dose: Not Given Documented By: BRYAN Non-Admin Reason: No Insulin Coverage Levothyroxine Sodium (Levothyroxine Sodium 75 Mcg Tablet) 75 mcg PO DAILY@0600 [facility] Last Admin: 07/30/25 06:10 Dose: 75 mcg Documented By: ELIZABETH Magnesium Hydroxide (Milk Of Magnesia 30 Ml Oral.Susp) 15 ml PO DAILY PRN PRN Reason: Constipation Last Admin: 07/29/25 11:25 Dose: 15 ml Documented By: BRYAN Melatonin (Melatonin 3 Mg Tablet) 6 mg PO BEDTIME PRN PRN Reason: Insomnia Morphine Sulfate (Morphine Sulfate 4 Mg/Ml Cartridge) 3 mg IVPUSH Q4H PRN; Protocol PRN Reason: Pain, Severe (Pain Scale 7-10) Last Admin: 07/29/25 20:41 Dose: 3 mg Documented By: ELIZABETH Naloxone HCl (Naloxone Hcl 0.4 Mg/Ml Vial) 0.04 mg IVPUSH Q5M PRN PRN Reason: Excessive sedation or RR < 8 Omeprazole (Omeprazole 20 Mg Capsule.) 20 mg PO BID@0630,1630 [facility] Last Admin: 07/30/25 06:10 Dose: 20 mg Documented By: ELIZABETH Ondansetron HCl (Ondansetron Hcl 4 Mg/2 Ml Vial) 4 mg IVPUSH Q8H PRN PRN Reason: Nausea and Vomiting Sertraline HCl (Sertraline Hcl 50 Mg Tablet) 150 mg PO DAILY [facility] Last Admin: 07/29/25 08:53 Dose: 150 mg Documented By: BRYAN Sodium Chloride (0.9 % Sodium Chloride Flush 3 Ml Syringe) 3 ml IVFLUSH QSHIFT [facility] Last Admin: 07/29/25 20:41 Dose: 3 ml Documented By: ELIZABETH Valsartan (Valsartan 80 Mg Tablet) 80 mg PO DAILY [facility]; Protocol Last Admin: 07/29/25 08:53 Dose: 80 mg Documented By: BRYAN Labs 07/29/25 06:08 07/27/25 20:47 Labs: Laboratory Results - last 24 hr 07/29/25 07/29/25 07/29/25 11:02 15:59 19:59 Hold Purple Top POC Glucose 126 H 253 H 130 H Total Bilirubin Direct Bilirubin AST ALT Alkaline Phosphatase Total Protein Albumin 07/30/25 07/30/25 07/30/25 06:28 06:44 07:09 Hold Purple Top SEE NOTE POC Glucose 131 H Total Bilirubin 0.7 Direct Bilirubin 0.4 AST 66 H ALT 220 H Alkaline Phosphatase 511 H Total Protein 6.0 L Albumin 3.5 Microbiology Microbiology Results: Microbiology 07/27/25 Unknown Urine Culture - Final Urine clean catch - Clean Catch Midstream Procedures Date of Service Date of Service: 07/30/25 Progress Note: A&P Assessment and plan (1) Pancreatitis: Status: Acute (2) Elevated LFTs: Status: Acute Plan Status post laparoscopic cholecystectomy on 07/18/2025 and ERCP for common bile duct stone on 07/28/2025. She feels much improved this morning in his tolerating her diet. Laboratories this morning are much improved as well with continued normalization of the transaminases. Patient feels ready for discharge to home. Follow up in office in 1 week. Time Spent With Patient Time: Total time managing care of this patient today ____ minutes. Quality Stroke Does the patient have a stroke diagnosis?: No VTE Prior VTE?: No VTE Risk Level:: Medical - moderate - high VTE Device Contraindication: N/A - Device Ordered VTE Drug Contraindication: N/A - Med Ordered
[2025-07-30] MEDS: buPROPion HCl XL 150 MG TAB.ER.24H PO (08:49)
[2025-07-30] MEDS: buPROPion HCl XL 300 MG TAB.ER.24H PO (08:49)
[2025-07-30] MEDS: Milk of Magnesia 30 ML ORAL.SUSP 15 ML PO (08:49)
[2025-07-30] MEDS: 0.9 % Sodium Chloride Flush 3 ML SYRINGE IVFLUSH ×3 (08:50→21:07)
--- NOTE | 2025-07-30 09:24 | MHC.CM.PN ---
Addendum entered by Rosario Batista 07/31/25 10:54: DISCHARGE CANCELLED YESTERDAY Original Note: PT CLEARED TO DC HOME TODAY WITH RESUMPTION OF HER HUMANITIES INSTRUCTOR SERVICES HUMANITIES INSTRUCTOR TO TRANSPORT
[2025-07-30 11:57] LABS: Glucose, Whole Blood 171 mg/dL (60-115)
--- NOTE | 2025-07-30 14:49 | HO.PM.IMPN ---
Subjective Subjective Date of Service: 07/30/25 Interval History: Seen and examined this morning Follow-up for medical consultation History obtained with the assistance of a tour leader No overnight events Feeling a little bloated, had bowel movement. No significant abdominal pain Constitutional Constitutional: Denies chills and Denies fever(s) Cardiovascular Cardiovascular: Denies chest pain, Denies palpitations and Denies dyspnea Respiratory Respiratory: Denies cough and Denies dyspnea Endocrine Endocrine: Denies palpitations Physical Exam Vital Signs: Vital Signs: Last Vital Signs Temp 96.8 F 07/30/25 07:37 Pulse 63 07/30/25 08:49 Resp 18 07/30/25 08:11 BP 137/70 07/30/25 08:49 Pulse Ox 94 07/30/25 07:37 O2 Del Method Room Air 07/30/25 07:37 O2 Flow Rate 3 07/28/25 16:03 BMI result Body Mass Index 32.4 Objective Data Active Medications Acetaminophen (Acetaminophen 325 Mg Tablet) 650 mg PO Q6H PRN PRN Reason: Pain, Mild 1-3,fever,headache Last Admin: 07/29/25 23:12 Dose: 650 mg Documented By: ELIZABETH Atenolol (Atenolol 25 Mg Tablet) 25 mg PO DAILY [facility]; Protocol Last Admin: 07/30/25 08:49 Dose: 25 mg Documented By: BRYAN Bupropion HCl (Bupropion Hcl Xl 300 Mg Tab.Er.24h) 300 mg PO DAILY [facility] Last Admin: 07/30/25 08:49 Dose: 300 mg Documented By: BRYAN Bupropion HCl (Bupropion Hcl Xl 150 Mg Tab.Er.24h) 150 mg PO DAILY [facility] Last Admin: 07/30/25 08:49 Dose: 150 mg Documented By: BRYAN Calcium Carbonate (Calcium Carbonate 750 Mg Tab.Chew) 750 mg PO Q4H PRN PRN Reason: Heartburn Last Admin: 07/29/25 23:12 Dose: 750 mg Documented By: ELIZABETH Dextrose (Dextrose 50 % 25 Gm/50 Ml Syringe) 25 gm IVPUSH Q15M PRN; Protocol PRN Reason: per Hypoglycemia Standing Ord. Docusate Sodium (Docusate Sodium 100 Mg Capsule) 100 mg PO BEDTIME [facility] Last Admin: 07/29/25 20:41 Dose: 100 mg Documented By: ELIZABETH Fluticasone Propionate (Fluticasone Propionate 100 Mcg Blst.W.Dev) 1 puff INHALE RBID [facility] Last Admin: 07/30/25 08:10 Dose: 1 puff Documented By: MICHELLE Fluticasone Propionate (Fluticasone Propionate Nasal 16 Gm [place]) 2 spray NOSTRIL-B DAILY [facility] Last Admin: 07/30/25 08:50 Dose: 2 spray Documented By: BRYAN Glucose (Glucose Gel 15 Gm Gel..Gram.) 15 gm PO Q15M PRN; Protocol PRN Reason: per Hypoglycemia Standing Ord. Heparin Sodium (Porcine) (Heparin Sodium,Porcine 5,000 Unit/Ml Vial) 5,000 unit SUBCUT Q8H [facility] On Hold: 07/29/25 10:00 Insulin Human Lispro (Insulin Lispro 100 Unit/Ml 3 Ml Vial) 0 unit SUBCUT QIDACHS [facility]; Protocol Last Admin: 07/30/25 12:11 Dose: 2 unit Documented By: BRYAN Levothyroxine Sodium (Levothyroxine Sodium 75 Mcg Tablet) 75 mcg PO DAILY@0600 [facility] Last Admin: 07/30/25 06:10 Dose: 75 mcg Documented By: ELIZABETH Magnesium Hydroxide (Milk Of Magnesia 30 Ml Oral.Susp) 15 ml PO DAILY PRN PRN Reason: Constipation Last Admin: 07/30/25 08:49 Dose: 15 ml Documented By: BRYAN Melatonin (Melatonin 3 Mg Tablet) 6 mg PO BEDTIME PRN PRN Reason: Insomnia Morphine Sulfate (Morphine Sulfate 4 Mg/Ml Cartridge) 3 mg IVPUSH Q4H PRN; Protocol PRN Reason: Pain, Severe (Pain Scale 7-10) Last Admin: 07/29/25 20:41 Dose: 3 mg Documented By: ELIZABETH Naloxone HCl (Naloxone Hcl 0.4 Mg/Ml Vial) 0.04 mg IVPUSH Q5M PRN PRN Reason: Excessive sedation or RR < 8 Omeprazole (Omeprazole 20 Mg Capsule.) 20 mg PO BID@0630,1630 [facility] Last Admin: 07/30/25 06:10 Dose: 20 mg Documented By: ELIZABETH Ondansetron HCl (Ondansetron Hcl 4 Mg/2 Ml Vial) 4 mg IVPUSH Q8H PRN PRN Reason: Nausea and Vomiting Sertraline HCl (Sertraline Hcl 50 Mg Tablet) 150 mg PO DAILY [facility] Last Admin: 07/30/25 08:49 Dose: 150 mg Documented By: BRYAN Sodium Chloride (0.9 % Sodium Chloride Flush 3 Ml Syringe) 3 ml IVFLUSH QSHIFT [facility] Last Admin: 07/30/25 08:50 Dose: 3 ml Documented By: BRYAN Valsartan (Valsartan 80 Mg Tablet) 80 mg PO DAILY [facility]; Protocol Last Admin: 07/30/25 08:49 Dose: 80 mg Documented By: BRYAN Labs 07/29/25 06:08 07/27/25 20:47 Labs: Laboratory Results - last 24 hr 07/29/25 07/29/25 07/30/25 15:59 19:59 06:28 Hold Purple Top POC Glucose 253 H 130 H Total Bilirubin 0.7 Direct Bilirubin 0.4 AST 66 H ALT 220 H Alkaline Phosphatase 511 H Total Protein 6.0 L Albumin 3.5 07/30/25 07/30/25 07/30/25 06:44 07:09 11:41 Hold Purple Top SEE NOTE POC Glucose 131 H 171 H Total Bilirubin Direct Bilirubin AST ALT Alkaline Phosphatase Total Protein Albumin Quality Stroke Does the patient have a stroke diagnosis?: No VTE Prior VTE?: No VTE Risk Level:: Medical - moderate - high VTE Device Contraindication: N/A - Device Ordered VTE Drug Contraindication: N/A - Med Ordered
--- NOTE | 2025-07-30 15:02 | P.PNIM_ITS ---
Subjective Subjective Date of Service: 07/30/25 Interval History: Seen and examined this morning Follow-up for medical consultation History obtained with the assistance of a laborer powerhouse No overnight events Patient reporting abdominal bloating, minimal pain. Had small bowel movement this morning Review of Systems Review of Systems: Yes all other systems are reviewed and are negative Constitutional Constitutional: Denies chills and Denies fever(s) Physical Exam 2 Vital Signs: Vital Signs: Last Vital Signs Temp 96.8 F 07/30/25 07:37 Pulse 63 07/30/25 08:49 Resp 18 07/30/25 08:11 BP 137/70 07/30/25 08:49 Pulse Ox 94 07/30/25 07:37 O2 Del Method Room Air 07/30/25 07:37 O2 Flow Rate 3 07/28/25 16:03 BMI result Body Mass Index 32.4 Const: General: cooperative, comfortable, alert and awake Nutritional Appearance: overweight Orientation/consciousness: patient oriented x3 Resp: Effort & Inspection: normal respiratory effort, able to speak in complete sentences, no respiratory distress and no use of accessory muscles Cardio: Rate: regular rate GI: Inspection: No distended Palpation (GI): Soft to palpation Neuro: General: patient oriented x3, moves all extremities and CN's II-XI intact bilaterally Extrem: Other: LLE chronically swollen compare to RLE as per pt Objective Data Active Medications Acetaminophen (Acetaminophen 325 Mg Tablet) 650 mg PO Q6H PRN PRN Reason: Pain, Mild 1-3,fever,headache Last Admin: 07/29/25 23:12 Dose: 650 mg Documented By: ELIZABETH Atenolol (Atenolol 25 Mg Tablet) 25 mg PO DAILY [facility]; Protocol Last Admin: 07/30/25 08:49 Dose: 25 mg Documented By: BRYAN Bupropion HCl (Bupropion Hcl Xl 300 Mg Tab.Er.24h) 300 mg PO DAILY [facility] Last Admin: 07/30/25 08:49 Dose: 300 mg Documented By: BRYAN Bupropion HCl (Bupropion Hcl Xl 150 Mg Tab.Er.24h) 150 mg PO DAILY [facility] Last Admin: 07/30/25 08:49 Dose: 150 mg Documented By: BRYAN Calcium Carbonate (Calcium Carbonate 750 Mg Tab.Chew) 750 mg PO Q4H PRN PRN Reason: Heartburn Last Admin: 07/29/25 23:12 Dose: 750 mg Documented By: ELIZABETH Dextrose (Dextrose 50 % 25 Gm/50 Ml Syringe) 25 gm IVPUSH Q15M PRN; Protocol PRN Reason: per Hypoglycemia Standing Ord. Dicyclomine HCl (Dicyclomine Hcl 10 Mg Capsule) 20 mg PO TID [facility] Docusate Sodium (Docusate Sodium 100 Mg Capsule) 100 mg PO BEDTIME [facility] Last Admin: 07/29/25 20:41 Dose: 100 mg Documented By: ELIZABETH Fluticasone Propionate (Fluticasone Propionate 100 Mcg Blst.W.Dev) 1 puff INHALE RBID [facility] Last Admin: 07/30/25 08:10 Dose: 1 puff Documented By: MICHELLE Fluticasone Propionate (Fluticasone Propionate Nasal 16 Gm [place]) 2 spray NOSTRIL-B DAILY [facility] Last Admin: 07/30/25 08:50 Dose: 2 spray Documented By: BRYAN Glucose (Glucose Gel 15 Gm Gel..Gram.) 15 gm PO Q15M PRN; Protocol PRN Reason: per Hypoglycemia Standing Ord. Heparin Sodium (Porcine) (Heparin Sodium,Porcine 5,000 Unit/Ml Vial) 5,000 unit SUBCUT Q8H [facility] On Hold: 07/29/25 10:00 Insulin Human Lispro (Insulin Lispro 100 Unit/Ml 3 Ml Vial) 0 unit SUBCUT QIDACHS [facility]; Protocol Last Admin: 07/30/25 12:11 Dose: 2 unit Documented By: BRYAN Levothyroxine Sodium (Levothyroxine Sodium 75 Mcg Tablet) 75 mcg PO DAILY@0600 [facility] Last Admin: 07/30/25 06:10 Dose: 75 mcg Documented By: ELIZABETH Magnesium Hydroxide (Milk Of Magnesia 30 Ml Oral.Susp) 15 ml PO DAILY PRN PRN Reason: Constipation Last Admin: 07/30/25 08:49 Dose: 15 ml Documented By: BRYAN Melatonin (Melatonin 3 Mg Tablet) 6 mg PO BEDTIME PRN PRN Reason: Insomnia Metoclopramide HCl (Metoclopramide Hcl 10 Mg Tablet) 10 mg PO TIDAC [facility] Morphine Sulfate (Morphine Sulfate 4 Mg/Ml Cartridge) 3 mg IVPUSH Q4H PRN; Protocol PRN Reason: Pain, Severe (Pain Scale 7-10) Last Admin: 07/29/25 20:41 Dose: 3 mg Documented By: ELIZABETH Naloxone HCl (Naloxone Hcl 0.4 Mg/Ml Vial) 0.04 mg IVPUSH Q5M PRN PRN Reason: Excessive sedation or RR < 8 Non-Formulary Medication (Simethicone) 180 mg PO QID [facility] Omeprazole (Omeprazole 20 Mg Capsule.Dr) 20 mg PO BID@0630,1630 [facility] Last Admin: 07/30/25 06:10 Dose: 20 mg Documented By: ELIZABETH Ondansetron HCl (Ondansetron Hcl 4 Mg/2 Ml Vial) 4 mg IVPUSH Q8H PRN PRN Reason: Nausea and Vomiting Sertraline HCl (Sertraline Hcl 50 Mg Tablet) 150 mg PO DAILY [facility] Last Admin: 07/30/25 08:49 Dose: 150 mg Documented By: BRYAN Sodium Chloride (0.9 % Sodium Chloride Flush 3 Ml Syringe) 3 ml IVFLUSH QSHIFT [facility] Last Admin: 07/30/25 08:50 Dose: 3 ml Documented By: BRYAN Valsartan (Valsartan 80 Mg Tablet) 80 mg PO DAILY [facility]; Protocol Last Admin: 07/30/25 08:49 Dose: 80 mg Documented By: BRYAN Labs 07/29/25 06:08 07/27/25 20:47 Labs: Laboratory Results - last 24 hr 07/29/25 07/29/25 07/30/25 15:59 19:59 06:28 Hold Purple Top POC Glucose 253 H 130 H Total Bilirubin 0.7 Direct Bilirubin 0.4 AST 66 H ALT 220 H Alkaline Phosphatase 511 H Total Protein 6.0 L Albumin 3.5 07/30/25 07/30/25 07/30/25 06:44 07:09 11:41 Hold Purple Top SEE NOTE POC Glucose 131 H 171 H Total Bilirubin Direct Bilirubin AST ALT Alkaline Phosphatase Total Protein Albumin Assessment and Plan (1) Abdominal bloating: Status: Acute Plan This is a 65 year old Macedonian speaking female with history of HTN, HLD, DM, recent cholecystectomy who presents to the emergency department with recurrent abdominal pain admitted to the surgical service abdominal pain recent cholecystectomy, MRCP on 8/30 showed mild intrahepatic biliary duct dilation and mild dilation of CBD but no stones elevated LFTs/lipase concerning for gallstone pancreatitis GI following, s/p ERCP with sphincterotomy- no definite filling defect seen tolerating diet LFTs, lipase trending down overall improving functional dyspepsia may be contributing to bloating resume baseline GI meds DM ADA diet hold metformin SSI, POCs HTN continue atenolol, valsartan HLD hold statin as above mood continue sertraline, bupropion Hypothyroidism Continue Synthroid gerd continue PPI dvt ppx as per surgical team Thank you for allowing us to participate in the care of this patient. There are no active medical issues at this time, we will sign off. Please feel free to call us if any active issues arise. Quality Stroke Does the patient have a stroke diagnosis?: No VTE Prior VTE?: No VTE Risk Level:: Medical - moderate - high VTE Device Contraindication: N/A - Device Ordered VTE Drug Contraindication: N/A - Med Ordered
[2025-07-30 15:57] LABS: Glucose, Whole Blood 169 mg/dL (60-115)
[2025-07-30 20:23] LABS: Glucose, Whole Blood 113 mg/dL (60-115)
[2025-07-31 04:00] VITALS: BP 134/64; PULSE 54; RESP 18; TEMP 36.1; O2SAT 95
[2025-07-31 07:39] LABS: Glucose, Whole Blood 119 mg/dL (60-115)
[2025-07-31 07:50] VITALS: BP 138/73; PULSE 59; RESP 18; TEMP 36; O2SAT 94
--- NOTE | 2025-07-31 07:55 | P.PNGS_ITS ---
Subjective Subjective Date of Service: 07/31/25 Interval history: Feels better again Tolerating diet Denies nausea or vomiting Denies abdominal pain Physical Exam 2 Vital Signs: Vital Signs: Last Vital Signs Temp 96.8 F 07/31/25 07:50 Pulse 59 07/31/25 07:50 Resp 18 07/31/25 07:50 BP 138/73 07/31/25 07:50 Pulse Ox 94 07/31/25 07:50 O2 Del Method Room Air 07/31/25 07:50 O2 Flow Rate 3 07/28/25 16:03 BMI result Body Mass Index 32.4 Const: General: comfortable and no acute distress Resp: Effort & Inspection: normal respiratory effort Cardio: Rate: regular rate GI: Inspection: No distended Palpation (GI): Soft to palpation, not firm, nontender and no guarding Objective Data Active Medications Acetaminophen (Acetaminophen 325 Mg Tablet) 650 mg PO Q6H PRN PRN Reason: Pain, Mild 1-3,fever,headache Last Admin: 07/29/25 23:12 Dose: 650 mg Documented By: ELIZABETH Atenolol (Atenolol 25 Mg Tablet) 25 mg PO DAILY [facility]; Protocol Last Admin: 07/30/25 08:49 Dose: 25 mg Documented By: BRYAN Bupropion HCl (Bupropion Hcl Xl 300 Mg Tab.Er.24h) 300 mg PO DAILY [facility] Last Admin: 07/30/25 08:49 Dose: 300 mg Documented By: BRYAN Bupropion HCl (Bupropion Hcl Xl 150 Mg Tab.Er.24h) 150 mg PO DAILY [facility] Last Admin: 07/30/25 08:49 Dose: 150 mg Documented By: BRYAN Calcium Carbonate (Calcium Carbonate 750 Mg Tab.Chew) 750 mg PO Q4H PRN PRN Reason: Heartburn Last Admin: 07/29/25 23:12 Dose: 750 mg Documented By: ELIZABETH Dextrose (Dextrose 50 % 25 Gm/50 Ml Syringe) 25 gm IVPUSH Q15M PRN; Protocol PRN Reason: per Hypoglycemia Standing Ord. Dicyclomine HCl (Dicyclomine Hcl 10 Mg Capsule) 20 mg PO TID [facility] Last Admin: 07/30/25 21:07 Dose: 20 mg Documented By: ELIZABETH Docusate Sodium (Docusate Sodium 100 Mg Capsule) 100 mg PO BEDTIME [facility] Last Admin: 07/30/25 21:07 Dose: 100 mg Documented By: ELIZABETH Fluticasone Propionate (Fluticasone Propionate 100 Mcg Blst.W.Dev) 1 puff INHALE RBID [facility] Last Admin: 07/30/25 20:59 Dose: 1 puff Documented By: NIR Fluticasone Propionate (Fluticasone Propionate Nasal 16 Gm [place]) 2 spray NOSTRIL-B DAILY [facility] Last Admin: 07/30/25 08:50 Dose: 2 spray Documented By: BRYAN Glucose (Glucose Gel 15 Gm Gel..Gram.) 15 gm PO Q15M PRN; Protocol PRN Reason: per Hypoglycemia Standing Ord. Heparin Sodium (Porcine) (Heparin Sodium,Porcine 5,000 Unit/Ml Vial) 5,000 unit SUBCUT Q8H [facility] On Hold: 07/29/25 10:00 Insulin Human Lispro (Insulin Lispro 100 Unit/Ml 3 Ml Vial) 0 unit SUBCUT QIDACHS [facility]; Protocol Last Admin: 07/31/25 07:51 Dose: Not Given Documented By: WESLEY Non-Admin Reason: No Insulin Coverage Levothyroxine Sodium (Levothyroxine Sodium 75 Mcg Tablet) 75 mcg PO DAILY@0600 [facility] Last Admin: 07/31/25 05:24 Dose: 75 mcg Documented By: ELIAZBETH Magnesium Hydroxide (Milk Of Magnesia 30 Ml Oral.Susp) 15 ml PO DAILY PRN PRN Reason: Constipation Last Admin: 07/30/25 08:49 Dose: 15 ml Documented By: BRYAN Melatonin (Melatonin 3 Mg Tablet) 6 mg PO BEDTIME PRN PRN Reason: Insomnia Metoclopramide HCl (Metoclopramide Hcl 10 Mg Tablet) 10 mg PO TIDAC [facility] Last Admin: 07/30/25 16:40 Dose: 10 mg Documented By: BRYAN Morphine Sulfate (Morphine Sulfate 4 Mg/Ml Cartridge) 3 mg IVPUSH Q4H PRN; Protocol PRN Reason: Pain, Severe (Pain Scale 7-10) Last Admin: 07/29/25 20:41 Dose: 3 mg Documented By: ELIZABETH Naloxone HCl (Naloxone Hcl 0.4 Mg/Ml Vial) 0.04 mg IVPUSH Q5M PRN PRN Reason: Excessive sedation or RR < 8 Omeprazole (Omeprazole 20 Mg Capsule.) 20 mg PO BID@0630,1630 [facility] Last Admin: 07/31/25 05:24 Dose: 20 mg Documented By: ELIZABETH Ondansetron HCl (Ondansetron Hcl 4 Mg/2 Ml Vial) 4 mg IVPUSH Q8H PRN PRN Reason: Nausea and Vomiting Sertraline HCl (Sertraline Hcl 50 Mg Tablet) 150 mg PO DAILY [facility] Last Admin: 07/30/25 08:49 Dose: 150 mg Documented By: BRYAN Simethicone (Simethicone 80 Mg Tab.Chew) 160 mg PO QID [facility] Last Admin: 07/30/25 21:07 Dose: 160 mg Documented By: ELIZABETH Sodium Chloride (0.9 % Sodium Chloride Flush 3 Ml Syringe) 3 ml IVFLUSH QSHIFT [facility] Last Admin: 07/30/25 21:07 Dose: 3 ml Documented By: ELIZABETH Valsartan (Valsartan 80 Mg Tablet) 80 mg PO DAILY [facility]; Protocol Last Admin: 07/30/25 08:49 Dose: 80 mg Documented By: BRYAN Labs 07/29/25 06:08 07/27/25 20:47 Labs: Laboratory Results - last 24 hr 07/30/25 07/30/25 07/30/25 11:41 15:53 20:20 POC Glucose 171 H 169 H 113 07/31/25 07:20 POC Glucose 119 H Procedures Date of Service Date of Service: 07/31/25 Progress Note: A&P Assessment and plan (1) Pancreatitis: Status: Acute Assessment and Plan: Status post ERCP LFTs have continued to trend down Abdomen remains soft and benign Looks well overall She says she is ready to be discharged We will see how she does with breakfast and okay to DC home if she tolerates this Time Spent With Patient Time: Total time managing care of this patient today ____ minutes. Quality Stroke Does the patient have a stroke diagnosis?: No VTE Prior VTE?: No VTE Risk Level:: Medical - moderate - high VTE Device Contraindication: N/A - Device Ordered VTE Drug Contraindication: N/A - Med Ordered
[2025-07-31] MEDS: Fluticasone Propionate 100 MCG BLST.W.DEV 1 PUFF INHALE (08:01)
[2025-07-31 08:02] VITALS: PULSE 63; RESP 18; O2SAT 93
[2025-07-31] MEDS: buPROPion HCl XL 150 MG TAB.ER.24H PO (08:04)
[2025-07-31] MEDS: buPROPion HCl XL 300 MG TAB.ER.24H PO (08:04)
[2025-07-31] MEDS: 0.9 % Sodium Chloride Flush 3 ML SYRINGE IVFLUSH (08:07)
--- NOTE | 2025-07-31 09:45 | MHC.CM.PN ---
PT DCD HOME SELF CARE
--- NOTE | 2025-07-31 14:27 | PM.DS ---
DS: Providers Provider Date of Service: 07/31/25 Date of admission: 07/28/25 06:16 Date of discharge: 07/31/25 Primary care physician: Libra Barone MD Attending physician on admission: Dex Silva Consults: 07/28/25 06:20 Consult to Gastroenterology Routine Consulting Provider: [facility] Reason for consultation: abnormal LFTs, lipase 07/28/25 06:21 Consult to Hospitalist Routine Comment: Consulting Provider: [facility] Reason For Exam: DM, HTN, thyroid ds Attending physician on discharge: Dex Silva DS: Diagnosis Discharge Diagnosis (1) Pancreatitis: Status: Resolved DS: Summary Hospital Course Hospital Course: HPI AT ADMISSION: Sridevi Pruitt I is a 65 year old female with PMH for diabetes, hypertension who underwent lap rita on 07/18/25 for biliary colic, chronic cholecystitis. Procedure and recovery were uncomplicated. She was doing well the following day and was discharged. She was however readmitted 3 days following after she developed new RUQ abd pain associated with significantly elevated LFTs. GI was consulted and MRCP was performed which showed mild intrahepatic biliary ductal dilatation and mild dilatation of the common hepatic duct without obstructing calculus or mass. Her LFTs began to improve and her symptoms resolved. Picture was felt to be suggestive of passed CBD stone. Her diet was advanced and she was discharged to home on 07/24/25. She represented to the ED with complaints of worsening abd pain and nausea. Work up in the ED included CBC, BMP, LFTs which showed total/direct bili of 2.1/1.6, AST/ALT 331/[address] scan abd pelvis was obtained showed no acute findings. GI was consulted for evaluation. She denies fevers, chills, diarrhea. HOSPITAL COURSE: She was admitted to the surgical service for further work up and treatment of the likely gallstone pancreatitis. She was kept NPO, on IVF with PRN analgesics. Case was discussed with GI and they felt that given her presentation and prior MRCP she had CBD stone and she was added onto the OR schedule for an ERCP. On 07/28/25, ERCP with sphincterotomy with multiple sweeps with balloon was performed. No stones seen and she had good drainage of clear yellow bile following. Her diet was slowly advanced following. Her LFTs continually downtrended and improved and bilirubin normalized. On the day of discharge, she felt well and was tolerating a solid diet without recurrence in abd pain, nausea or vomiting. Her abdomen was benign and soft/nontender. She was discharged to home on 07/31/25 in stable condition. She is to follow up in the office in 1 week. Status at Discharge Functional status at discharge: independent ambulation Overall status at discharge: patient is back to baseline Time Attestation Discharge Coordination Time (in mins): 25 Quality: Safe Use of Opioids Does Pt have an Active Cancer Diagnosis on the Problem List?: No Quality: Stroke Does the patient have a stroke diagnosis?: No Physical Exam Vital Signs: Vital Signs: Last Vital Signs Temp 96.8 F 07/31/25 07:50 Pulse 63 07/31/25 08:02 Resp 18 07/31/25 08:02 BP 138/73 07/31/25 07:50 Pulse Ox 94 07/31/25 07:50 O2 Del Method Room Air 07/31/25 07:50 O2 Flow Rate 3 07/28/25 16:03 BMI result Body Mass Index 32.4 Const: General: comfortable, no acute distress and alert Orientation/consciousness: patient oriented x3 GI: Inspection: No distended Palpation (GI): Soft to palpation and nontender Neuro: General: patient oriented x3 DS: Data Data Completed and Pending Completed studies during hospitalization [Text1]: Procedures Resection of Gallbladder, Percutaneous Endoscopic Approach (07/18/25) Discharge Plan Discharge Anticipated Discharge Date/Time: 07/31/25 07:57 Patient Disposition: Home, Self-Care Discharge Diagnosis: pancreatitis s/p lap rita Referrals: Libra Barone MD [Primary Care Provider, Family Practice] - 1 Week Dex Silva MD [Physician, General Surgery] - 2 Weeks Discharge Medications: Continued valsartan 80 mg tablet 80 mg PO DAILY metformin 500 mg tablet extended release 24 hr 500 mg PO DAILY@1700 bupropion HCl 300 mg tablet extended release 24 hr 300 mg PO DAILY fluticasone furoate [Arnuity Ellipta] 100 mcg/actuation blister with device 1 inh inhalation DAILY oxycodone 5 mg tablet 5 mg PO Q4H PRN (Reason: pain (scale score 7-10)) Qty: 26 0RF Rx Instructions: Partial Fill upon patient request. atenolol 25 mg tablet 25 mg PO DAILY fluticasone propionate 50 mcg/actuation spray,suspension 2 spray intranasal DAILY levothyroxine 75 mcg tablet 75 mcg PO DAILY@0630 sertraline 100 mg tablet 150 mg PO DAILY bupropion HCl 150 mg tablet extended release 24 hr 150 mg PO DAILY rosuvastatin 20 mg tablet 20 mg PO BEDTIME hydrocortisone [Proctosol HC] 2.5 % cream with perineal applicator 1 appl HI BID Qty: 30 6RF Rx Instructions: BE SURE TO INCLUDE RECTAL APPICATOR!! No Action pantoprazole 40 mg tablet,delayed release (DR/EC) 40 mg PO BID metoclopramide HCl [Reglan] 10 mg tablet 10 mg PO TIDAC Qty: 90 6RF simethicone 180 mg capsule 180 mg PO QID Qty: 120 6RF docusate sodium [Colace] 100 mg capsule 100 mg PO BID Qty: 30 0RF dicyclomine 20 mg tablet 20 mg PO TID 30 Days Qty: 90 6RF Discharge Orders: Discharge Order (Routine); Ordered 07/31/25 Ordered By: Dex Silva Diet: Advance to usual diet Activity on Discharge: No heavy lifting Stand Alone Forms: Patient Portal Discharge page Print Language: Israeli Activity Restrictions/Additional Instructions: Follow up in office in a week. ([phone]) Call Your Doctor If: ? ? -Your temperature exceeds 101.5? F? ? ? -You experience excessive pain or swelling ? ? -You have an unexpected reaction to medication ? ? -You experience continued vomiting/nausea Care Plan Goals: Return to baseline health and resume normal activities following recovery period. Health Concerns: s/p lap rita retained stone, elevated LFTs Plan of Treatment: S/p ERCP Improvement in LFTs F/u in office with Dr. Silva in 1 week Assessment: Improved Discharge Date/Time: 07/31/25 11:43
== END 2025-07-31 11:43 | disposition home or self-care (01) | DRG 440 ==
LOC: HO.ED 07-28 06:08 → HO.EDOVER 07-28 06:23 → HO.S3 07-28 08:30
PROVIDERS: Emergency Medicine; Internal Medicine Gastroenterology; Physician Assistant Medical; Surgery; Admitting Provider Surgery; Emergency Provider Emergency Medicine; PCP Family Medicine; Visit Provider Surgery
PROC: 0F798ZZ Dilation of Common Bile Duct, Via Natural or Artificial Opening Endoscopic (ICD-10-PCS; CPT 43260; principal; 2025-07-28 14:00)
DX: K85.10 Biliary acute pancreatitis without necrosis or infection (principal); E03.9 Hypothyroidism, unspecified; F39 Unspecified mood [affective] disorder; E11.9 Type 2 diabetes mellitus without complications; I10 Essential (primary) hypertension; K21.9 Gastro-esophageal reflux disease without esophagitis; Z90.49 Acquired absence of other specified parts of digestive tract; Z79.51 Long term (current) use of inhaled steroids; Z79.84 Long term (current) use of oral hypoglycemic drugs; Z79.890 Hormone replacement therapy; Z79.899 Other long term (current) drug therapy
CPT/HCPCS: 36415; 74177; 80048; 80076; 81001; 82947; 83690; 85025; 85027; 87086; 94640; 99285; J0696; J1610; J2003; J2250; J2270; J2704; J3010; J7120; Q9967

== ENCOUNTER → 2025-07-28 00:01 | Outpatient (BNV) | payer OTHER, SELFPAY | PROVIDERS: Emergency Provider Emergency Medicine; PCP Family Medicine; Visit Provider General Practice | DX: R10.10 Upper abdominal pain, unspecified (principal); Z90.49 Acquired absence of other specified parts of digestive tract | CPT/HCPCS: 74177 ==

== ENCOUNTER → 2025-07-28 06:16 | Outpatient (BNV) | payer OTHER, SELFPAY | PROVIDERS: Admitting Provider Surgery; Emergency Provider Emergency Medicine; PCP Family Medicine; Visit Provider Physician Assistant Surgical | DX: K85.90 Acute pancreatitis without necrosis or infection, unspecified (principal) | CPT/HCPCS: 99024; 99222; 99232; 99499 ==

== ENCOUNTER → 2025-07-28 06:16 | Outpatient (BNV) | payer OTHER, SELFPAY | PROVIDERS: Admitting Provider Surgery; Emergency Provider Emergency Medicine; PCP Family Medicine; Visit Provider Physician Assistant Medical | DX: R14.0 Abdominal distension (gaseous) (principal) | CPT/HCPCS: 99223; 99231; 99232 ==

== ENCOUNTER 2025-08-01 13:49 | Outpatient (AMB) | payer OTHER, SELFPAY ==
--- OUTSIDE RECORDS SUMMARY | 2025-07-28 23:59 | XMS_ITS | Continuity of Care Document ---
Author Organization [facility] ter Address [address] [place] [id number]- Care Team Providers Care Orthopedic Nurse Name Role Phone Libra Barone MD Primary Care Physician [place] [facility] [place]15[place] - 07/28/[address] [address]- Attending Physician: Rosanna Lowe MD Admitting Physician: Rosanna Lowe MD Referring Physician: Rosanna Lowe MD Encounter Type: Pre-Outpt Allergies, Adverse Reactions, Alerts No Known Allergies Medications Colace sodium 100 mg oral capsule 1 capsule = 100 mg, By Mouth, 2 times a day, PRN for constipation, # 30 capsule, 0 Refills, Maintenance, 08/24/14 2:14:26 PM EDT, Capsule, [facility] Start Date: 08/24/14 Status: Ordered Medication Dispense Status: Completed Quantity: 30.0 Unit: capsule Total Allowed Fills: 1 Fills Dispensed: 0 Levothyroxine Tablet Daily, 0 Refills, Maintenance, 03/11/13 2:43:21 PM EDT Start Date: 03/11/13 Status: Ordered Medication Dispense Status: Completed Total Allowed Fills: 1 Fills Dispensed: 0 Metformin = 500 mg, By Mouth, 0 Refills, Maintenance, 10/10/24 3:27:00 PM EST, Partial fill upon patient request if the prescription is for a schedule II opioid drug. Start Date: 10/10/24 Status: Ordered Medication Dispense Status: Completed Total Allowed Fills: 1 Fills Dispensed: 0 nystatin topical [id number] u/gm powder 1 applicator, Topically, 3 times a day, # 30 Gm, 0 Refills, Maintenance, 08/24/14 2:14:56 PM EDT, [facility], 1 applicator Topically 3 times a day Start Date: 08/24/14 Status: Ordered Medication Dispense Status: Completed Quantity: 30.0 Unit: g Total Allowed Fills: 1 Fills Dispensed: 0 Problem List Condition Confirmation Course Effective Dates Status Health St atus Informant Diabetes Confirmed Active Gastritis Confirmed Active Hypertension Confirmed Active Polyp of corpus uteri Confirmed Active Severe obesity (BMI 35.0-39.9) with comorbidity Confirmed Active Tubular adenoma of colon Confirmed Active Abnormal ultrasound of pelvis Confirmed Active Social History Social History Type Response Sexual Sexually involved in last 6 months: No. Tobacco Use: 4 or less cigar ettes(less than 1/4 pack)/day in last 30 days. Sex Female Sex Representation Female (finding) Patient Care team information Care Team Personnel Name: Libra Barone MD Position: [facility] Outreach Member Role: PCP Address: [address] [place] [address] Telecom: Care Team Related Persons Name: LEEANN SPARROW Insurance Providers Guarantor name: RICARDO CHRISTAL Health Plan Information #: 1 Payer: [employer] Payer Identifier: ALHAJI Member Number: [id number] Group Number: [id number] Subscriber Identifier: [id number] Relationship to Subscriber: self Coverage Type: Medicare Managed Care (Includes Medicare Advantage Plans) Coverage Verification Date: ALHAJI Telecom: ALHAJI Address:
--- OUTSIDE RECORDS SUMMARY | 2025-07-30 23:59 | XMS_ITS | Continuity of Care Document ---
Author Organization [facility] FLOOR PRESS OPERATOR Oncolog y Address [address] [place] [address]- Care Team Providers Care Wagon Winder Name Role Phone Libra Barone MD Primary Care Physician Encounter [facility] Date(s): 06/15/25 - 07/30/25 [facility] FLOOR PRESS OPERATOR Oncology [address] [place] [id number] Attending Physician: Rosanna Lowe MD Admitting Physician: Rosanna Lowe MD Encounter Type: Pre-OutPatient One Time Allergies, Adverse Reactions, Alerts No Known Allergies Medications Colace sodium 100 mg oral capsule 1 capsule = 100 mg, By Mouth, 2 times a day, PRN for constipation, # 30 capsule, 0 Refills, Maintenance, 08/24/14 2:14:26 PM EDT, Capsule, [facility] Start Date: 08/24/14 Status: Ordered Medication Dispense [...] Fills: 1 Fills Dispensed: 0 nystatin topical [id number] u/gm powder 1 applicator, Topically, 3 times a day, # 30 Gm, 0 Refills, Maintenance, 08/24/14 2:14:56 PM EDT, [facility], 1 applicator Topically 3 [...] Team Personnel Name: Libra Barone MD Position: [facility] Outreach Member Role: PCP Address: [address] [place] [address] Telecom: Care Team Related Persons Name: LEEANN SPARROW Insurance Providers Guarantor name: RICARDO SIEGEL [employer] Plan Information #: 1 Payer: [employer] Payer Identifier: ALHAJI Member Number: [id number] Group Number: [id number] Subscriber Identifier: [id number] Relationship to Subscriber: self Coverage Type: Medicare Managed Care (Includes Medicare Advantage Plans) Coverage Verification Date: ALHAJI Telecom: ALHAJI Address:
--- NOTE | 2025-08-01 14:01 | MHC.OFFVIS ---
Vital Signs 08/01/25 14:02 Height 5 ft 2 in Weight 176 lb 12.972 oz BMI 32.3 BP 114/56 L Blood Pressure Location Rt brachial Position Sitting Pulse 54 Intake Visit Reasons: 6 wks f/u Intake Note: Sridevi presents to in office follow up of abdominal pain. CC: Patient went to ER on 07/21 with c/o Abdominal pain, elevated LFT's, and jaundice x3 days. On 07/28 she underwent ERCP and has been feeling well. Oilseed Meat Presser Required: Yes Oilseed Meat Presser Language: Panamanian Accompanied by: Self / Same As Patient Allergies No Known Allergies (No Known Allergies*) Allergy (Verified 08/01/25 14:05) HPI HPI 6 wks f/u: Details: Assessment & Plan (1) Abdominal bloating: Code(s): R14.0 - Abdominal distension (gaseous) Category: Medical (2) Abdominal cramping: Code(s): R10.9 - Unspecified abdominal pain Category: Medical (3) Hemorrhoids: Code(s): K64.9 - Unspecified hemorrhoids Category: Medical (4) Delayed gastric emptying: Code(s): K30 - Functional dyspepsia Category: Medical (5) GERD (gastroesophageal reflux disease): Code(s): K21.9 - Gastro-esophageal reflux disease without esophagitis Category: Medical (6) Erosive gastritis: Code(s): K29.60 - Other gastritis without bleeding Category: Medical Plan [place]ian #V Live The bentyl resolved the LLQ pain, but she still has rectal pain with intermittent small amts of blood. She also has a lot of flatulence. SHe lost her proctosol cream. Try SIBO with augemntin and probitoic. If this does not work consider creon. Her current regimen is pantoprazole bid, reglan 10mg tid, simethicone. Re sending proctosol cream. ROV 6 weeks. Medications: New hydrocortisone 2.5% (Proctosol HC) BE SURE TO INCLUDE RECTAL APPICATOR!! 1 appl MD BID 30 grams 6RF hemorrhoids K64.9 - Unspecified hemorrhoids amoxicillin-pot clavulanate 875-125 mg 1 tab PO BID 20 tabs 0RF 10 days amoxicillin-pot clavulanate 875-125 mg 1 tab PO BID 10 days 20 tabs 0RF Refilled hydrocortisone 2.5% (Proctosol HC) BE SURE TO INCLUDE RECTAL APPICATOR!! 1 appl MD BID 30 grams 6RF hemorrhoids K64.9 - Unspecified hemorrhoids INPT ADMISSION 07/30/2025 Assessment and Plan (1) Abdominal bloating: Status: Acute Plan This is a 65 year old Panamanian speaking female with history of HTN, HLD, DM, recent cholecystectomy who presents to the emergency department with recurrent abdominal pain admitted to the surgical service abdominal pain recent cholecystectomy, MRCP on 07/22 showed mild intrahepatic biliary duct dilation and mild dilation of CBD but no stones elevated LFTs/lipase concerning for gallstone pancreatitis GI following, s/p ERCP with sphincterotomy- no definite filling defect seen tolerating diet LFTs, lipase trending down overall improving functional dyspepsia may be contributing to bloating resume baseline GI meds DM ADA diet hold metformin SSI, POCs HTN continue atenolol, valsartan HLD hold statin as above mood continue sertraline, bupropion Hypothyroidism Continue Synthroid gerd continue PPI dvt ppx as per surgical team Thank you for allowing us to participate in the care of this patient. There are no active medical issues at this time, we will sign off. Please feel free to call us if any active issues arise. admit labs Total Bilirubin 2.1 H Direct Bilirubin 1.6 H AST 331 H ALT 324 H Alkaline Phosphatase 733 H D/C LABS Total Bilirubin 0.7 Direct Bilirubin 0.4 AST 66 H ALT 220 H Alkaline Phosphatase 511 H 2020 baseline AST/ALT TODAYS VISIT [place]ian # Nora Live pantoprazole bid, reglan 10mg tid, simethicone. Re sending proctosol cream. [facility] Medical History (Updated 08/01/25 @ 17:39 by LUIS ENRIQUE Cat) Abdominal bloating Abdominal cramping Transaminitis Postmenopausal bleeding Unsatisfactory cervical Papanicolaou smear Chronic idiopathic constipation Urinary frequency Diverticulitis Epigastric pain COVID-19 Well woman exam Bacterial vaginosis Uterine mass COVID-19 Well woman exam Smoker Bacterial vaginosis Hypertension Tubular adenoma of colon LLQ abdominal pain 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 Gastritis Surgical History Hx laparoscopic cholecystectomy Hx of hernia repair History of esophagogastroduodenoscopy (EGD) Hx of colonoscopy Family History Father Family history of prostate problems Colon cancer Mother Tumor Social History Household Members: None Housing: House Do you presently have visiting nurse or other home services: Yes (MATERIALS COORDINATOR; 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, cooking) Alcohol intake: never Patient Tobacco Use Status: Never used Tobacco Tobacco use type: Cigarette Cigarettes Per Day: 2 Years Smoked: 20 e-Cigarette/Vaping Use: Never Used Second Hand Smoke Exposure: No service: No Current occupational status: disabled Female Reproductive History Menstrual Age of Menarche: 13 Review of Systems Const Denies fatigue, Denies fever(s), Denies night sweats, Denies poor appetite and Denies weight loss ENT Reports Normal hearing present, Denies dental pain, Denies dysphagia, Denies hearing loss, Denies mouth pain, Denies odynophagia, Denies throat swelling, Denies tongue swelling and Reports other (Dentition adequate) Card Reports no additional complaints Resp Reports no additional complaints GI Details: Reports abdominal pain, Denies melena, Denies bloating, Denies hematochezia, Denies constipation, Denies GI cramping, Denies dysphagia, Denies excessive flatus, Reports early satiety, Reports heartburn, Denies diarrhea, Denies nausea, Denies odynophagia, Denies vomiting and Denies hematemesis Skin/Breast Denies pruritus, Denies lesions, Denies rash and Denies jaundice Neuro Reports Normal hearing present and Denies Abnormal speech present Endo Denies fatigue Aller/Immun Denies throat swelling and Denies tongue swelling Physical Exam Vital Signs: Last Vital Signs Pulse 54 08/01/25 14:02 BP 114/56 L 08/01/25 14:02 BMI result Body Mass Index 32.3 Const General: cooperative, no acute distress, well developed and well groomed Nutritional Appearance: well nourished and obese Orientation/consciousness: oriented to person, oriented to place and oriented to time Limitations: language barrier HEENT Head: Yes normocephalic and Yes atraumatic Eyes General: appearance normal, both eyes and all related structures Pupils: Equal, round and reactive pupils present Neck Neck: Yes normal visual inspection and Yes no lymphadenopathy Thyroid: Thyroid normal Resp Effort & Inspection: normal respiratory effort and able to speak in complete sentences Auscultation: clear to auscultation bilaterally Cardio Rate: regular rate Rhythm: regular rhythm Heart sounds: Normal, physiologic split S2 sound present Peripheral pulses: radial pulses present and posterior tibial pulses present GI Inspection: No distended, Yes Abdominal panniculus present and Yes obesity Palpation (GI): Soft to palpation, nontender, no guarding, not rigid and No hepatosplenomegaly present Percussion: Yes normal to percussion Auscultation: normal bowel sounds Rectal Exam - Female: deferred Skin General skin exam: no rashes or lesions noted, turgor normal, skin not dry, no jaundice, No spider nevi and no striae Rashes: no rashes Nails: normal Neuro General: oriented to person, oriented to place and oriented to time Cranial nerves: Yes Equal, round and reactive pupils present and Yes Normal hearing present Speech: No Abnormal speech present Extrem General: Yes normal to inspection, No clubbing, No cyanosis and No edema Psych Appearance: grossly normal and well kempt Mental Status: mental status grossly normal Speech and movement: Normal speech and movement present Affect: normal affect Attitude: cooperative Thought process: Normal thought process present and not confabulating Thought content: Normal thought content present Insight: Limited insight present (Psych) Judgement: Limited judgement present (Psych) Results Reviewed Results Reviewed: INPT ADMISSION 07/30/2025 Assessment and Plan (1) Abdominal bloating: Status: Acute Plan This is a 65 year old Panamanian speaking female with history of HTN, HLD, DM, recent cholecystectomy who presents to the emergency department with recurrent abdominal pain admitted to the surgical service abdominal pain recent cholecystectomy, MRCP on 07/22 showed mild intrahepatic biliary duct dilation and mild dilation of CBD but no stones elevated LFTs/lipase concerning for gallstone pancreatitis GI following, s/p ERCP with sphincterotomy- no definite filling defect seen tolerating diet LFTs, lipase trending down overall improving functional dyspepsia may be contributing to bloating resume baseline GI meds DM ADA diet hold metformin SSI, POCs HTN continue atenolol, valsartan HLD hold statin as above mood continue sertraline, bupropion Hypothyroidism Continue Synthroid gerd continue PPI dvt ppx as per surgical team Thank you for allowing us to participate in the care of this patient. There are no active medical issues at this time, we will sign off. Please feel free to call us if any active issues arise. admit labs Total Bilirubin 2.1 H Direct Bilirubin 1.6 H AST 331 H ALT 324 H Alkaline Phosphatase 733 H D/C LABS Total Bilirubin 0.7 Direct Bilirubin 0.4 AST 66 H ALT 220 H Alkaline Phosphatase 511 H 2020 baseline AST/ALT Assessment & Plan Assessment & Plan (1) GERD (gastroesophageal reflux disease): Code(s): K21.9 - Gastro-esophageal reflux disease without esophagitis Category: Medical (2) Delayed gastric emptying: Code(s): K30 - Functional dyspepsia Category: Medical (3) Erosive gastritis: Code(s): K29.60 - Other gastritis without bleeding Category: Medical (4) Transaminitis: Code(s): R74.01 - Elevation of levels of liver transaminase levels Category: Medical (5) Gallstone pancreatitis: Code(s): K85.10 - Biliary acute pancreatitis without necrosis or infection Category: Medical Plan - The patient is a 65-year-old female presenting with a follow-up for delayed gastric emptying and GERD with a history of erosive esophagitis and most recently gallstone pancreatitis status post cholecystectomy for which she was just discharged earlier this month. - Patient experienced severe abdominal pain leading to hospitalization for gallstone pancreatitis. - Underwent cholecystectomy in June and then ERCP with sphincterotomy to address possible choledocholithiasis; however, no stones were detected. - Two hospital admissions discussed, one leading to cholecystectomy and another due to pancreatitis. - Liver enzymes were noted to be elevated during prior evaluations, maintaining increased levels at discharge. - The patient is currently on pantoprazole, metoclopramide, and simethicone for symptom management. She is satisfied with her GI symptom control. - I would like to see her back in 6 weeks and continue to monitor her liver functions since they were not elevated prior to this episode. I would like to see them return to normal in his should they start to rise again we may need to take action by making her NPO to avoid another hospitalization. Medications: New metoclopramide HCl (Reglan) 10 mg PO TIDAC 90 tabs 6RF Refilled docusate sodium (Colace) 100 mg PO BID 30 caps 0RF simethicone 180 mg PO QID 120 caps 6RF dicyclomine 20 mg PO TID 90 tabs 6RF 30 days R10.9 - Unspecified abdominal pain Coding Level of Care Code Est Pt Level 4 (08979) Diagnoses GERD (gastroesophageal reflux disease) K21.9 Delayed gastric emptying K30 Erosive gastritis K29.60 Transaminitis R74.01 Gallstone pancreatitis K85.10 Time Spent (min) 38
[2025-08-01 14:02] VITALS: BP 114/56; PULSE 54; BMI 32.3
--- OUTSIDE RECORDS SUMMARY | 2025-08-01 16:31 | XMS_ITS | Encounter Summary ---
Author Organization [employer] Address [address] [facility] [address] 7t [place] [address] Care Team Providers Care Training And Development Assistant Name Role Phone Libra Barone MD Primary Care Provider +- [phone] Malu Medina PharmD Unavailable [phone]- [phone] Tamie Vega OD Unavailable [phone] February Unavailable Encounter Details Date Type Department Care Team ([facility] Contact Info) Description 07/28/2025 Orders Only [facility] External Provider, [facility] Social History Tobacco Use Types Packs/Day Years [...] Description 08/09/2025 9:00 AM EDT Office Visit [facility] [address] [place], [place] [phone] Libra Barone MD [address] [place], [place] [phone] documented as of this encounter Goals Goal Patient Goal Type Associated Problems Recent Progress Patient-Stated? Author Blood Pressure < 140/90 Blood Pressure 118/76(2024 3:15 PM EDT) No Jass-Malu Nash, PharmD Hemoglobin A1c < 7 Result Component 7.2( 8:51 AM EDT) No Malu Mckinnon, PharmD documented as of this encounter Procedures Procedure Name Priority Date/Time Associated Diagnosis Comments FL GUIDANCE IN OR Routine 07/28/2025 1:5 3 PM EDT documented in this encounter Results * FL Guidance in OR (07/28/2025 1:53 PM EDT) Anatomical Region Laterality Modality X-Ray Angiograph y 07/28/2025 1:53 PM EDT Narrative 07/28/2025 2:48 PM EDT [address] [address] Fluoroscopy Report Signed Patient: Sridevi Pruitt I MR#: [id number] : 1960 Acct:[id number] Age/Sex: 65 / F ADM Date: 07/28/25 Loc: HO.S3 354-[address]: Dex Silva MD Ordering Physician: Arya Gutierrez MD Date of Service: 07/28/25 Procedure(s): FL guidance in OR Accession Number(s): [id number] cc: Libra Barone MD; Arya Gutierrez MD Reason for Exam: ERCP EXAMINATION: FL GUIDANCE ONLY HISTORY: ERCP COMPARISON: Correlation is made with a CT of the abdomen with contrast dated 07/28/2025. TECHNIQUE: Fluoroscopy time: 3 minutes, 38.5 seconds. Cumulative Dose: 53.532 mGy. DAP: 23.285 mGym2 Images: 2. FINDINGS: Fluoroscopic images from an ERCP demonstrate opacification of the common bile duct which is normal in caliber. A wire is also seen in the common bile duct. No intraluminal filling defects are identified. FL/FL guidance in OR IMPRESSION: Fluoroscopy during procedure. Please see procedure report for additional information. Electronically signed by: Ronak Adair MD 07/28/2025 02:45 PM EDT RP Dictated By: Ronak Adair MD Signed By: <Electronically signed by Ronak Adair MD in OV> 07/28/25 1445 DD/ 1353 TD/TT: 07/28/25 1424 Machine Strap Buckler: Procedure Note Donotuseinterpreter, Image - 07/28/2025 [place] [address] Fluoroscopy Report Signed Patient: Sridevi Pruitt IMR#: [id number] : 1960cct:[id number] Age/Sex: 65 / FADM Date: 07/28/25 Loc: HO.S3 354-[address]: Dex Silva MD Ordering Physician: Arya Gutierrez MD Date of Service: 07/28/25 Procedure(s): FL guidance in OR Accession Number(s): [id number] cc: Libra Barone MD; Arya Gutierrez MD Reason for Exam: ERCP EXAMINATION: FL GUIDANCE ONLY HISTORY: ERCP COMPARISON: Correlation is made with a CT of the abdomen with contrast dated 07/28/2025. TECHNIQUE: Fluoroscopy time: 3 minutes, 38.5 seconds. Cumulative Dose: 53.532 mGy. DAP: 23.285 mGym2 Images: 2. FINDINGS: Fluoroscopic images from an ERCP demonstrate opacification of the common bile duct which is normal in caliber. A wire is also seen in the common bile duct. No intraluminal filling defects are identified. FL/FL guidance in OR IMPRESSION: Fluoroscopy during procedure. Please see procedure report for additional information. Electronically signed by: Ronak Adair MD 07/28/2025 02:45 PM EDT RP Dictated By: Ronak Adair MD Signed By: <Electronically signed by Ronak Adair MD in OV> 07/28/25 1445 DD/ 1353 TD/TT: 07/28/25 1424 Machine Strap Buckler: [facility] External Provider IMG IR PROCEDURES Final Result documented in this encounter Visit Diagnoses Not on filedocumented in this encounter Additional Health Concerns Assessment Noted Time PHQ-9 Depression Total Score: 0 04/20/20 24 3:44 PM EDT documented as of this encounter Care Teams Training And Development Assistant Relationship Specialty Start Date End Date Libra Barone MD [address] [place] [address] PCP - General Family Medicine 11/23/18 Malu Medina PharmD [address] [place] [address] Pharmacist Internal Medicine 05/09/24 Tamie Vega OD [address] [place] [address] Optometry 02/16/25February [address] [place] [address] 3[address] [place] [address] Gastroenterology 04/20/25 documented as of this encounter
--- OUTSIDE RECORDS SUMMARY | 2025-08-01 16:31 | XMS_ITS | Encounter Summary ---
Author Organization [employer] Address [address] [facility] 7t [place] [address] Care Team Providers Care Brine Maker Name Role Phone Libra Barone MD Primary Care Provider +1- [phone] Malu Medina PharmD Unavailable Tamie Vega OD Unavailable February Unavailable Encounter Details Date Type Department Care Team (Latest Contact Info) Description 10/09/2022 Abstract [facility] CONVERSIONS Dental, Provider, DDS Social History [...] Description 08/09/2025 9:00 AM EDT Office Visit [facility] MEDICINE [address] [place] [address] Libra Barone MD [address] [place] [address] documented as of this encounter Visit Diagnoses Not on filedocumented in this encounter Care Teams Brine Maker Relationship Specialty Start Date End Date Libra Barone MD [address] [place], [place] [phone] PCP - General Family Medicine 11/23/18 Malu Medina, LisaD [address] [place] [address] Pharmacist Internal Medicine 05/09/24 Tamie Vega OD [address] [place] [address] Optometry 02/16/[address] [place] [address] 3rd [place] [address] Gastroenterology 04/20/25 documented as of this encounter
--- OUTSIDE RECORDS SUMMARY | 2025-08-01 16:31 | XMS_ITS | Encounter Summary ---
Author Organization [employer] Address [address] [facility] 7t [place] [address] Care Team Providers Care Car Unloader Helper Name Role Phone Libra Barone MD Primary Care Provider +1- [phone] Malu Medina PharmD Unavailable Tamie Vega OD Unavailable February Unavailable Reason for Visit * Reason Onset Date Comments Pharmacy CHW 08/19/2024 Encounter Details Date Type Department Care Team ([facility] Contact Info) Description 08/19/2024 Telephone [facility] MEDICINE 230 [place], [place] [phone] Libra Barone MD [address] [place], [place] [phone] Pharmacy CH[facility] Social History Tobacco Use Types [...] Description 08/09/2025 9:00 AM EDT Office Visit [facility] [address] [place] [address] Libra Barone MD [address] [place] [address] documented as of this encounter Goals Goal [...] documented as of this encounter Care Teams Car Unloader Helper Relationship Specialty Start Date End Date Libra Barone MD [address] [place] [address] PCP - General Family Medicine 11/23/18 Malu Medina, Becky [address] [place] [address] Pharmacist Internal Medicine 05/09/24 Tamie Vega OD [address] [place] [address] Optometry 02/16/[address] 3rd [place] [address] Gastroenterology 04/20/25 documented as of this encounter
--- OUTSIDE RECORDS SUMMARY | 2025-08-01 16:31 | XMS_ITS | Encounter Summary ---
Author Organization [employer] Address [address] [facility] 7t [place] [address] Care Team Providers Care Sales Agent Protective Service Name Role Phone Libra Barone MD Primary Care Provider [phone]- [phone] Malu Medina PharmD Unavailable Tamie Vega OD Unavailable [phone] February Unavailable Reason for Visit * Reason Onset Date Comments Appointment Request 08/22/2024 Encounter Details Date Type Department Care Team ([facility] Contact Info) Description 08/22/2024 Telephone [facility] MEDICINE [address] [place], [place] [phone] Libra Barone MD [address] [place], [place] [phone] Appointment Request Social History Tobacco Use Types [...] Description 08/09/2025 9:00 AM EDT Office Visit [facility] MEDICINE [address] [place] [address] Libra Barone MD [address] [place] [address] documented as of this encounter Goals Goal [...] documented as of this encounter Care Teams Sales Agent Protective Service Relationship Specialty Start Date End Date Libra Barone MD [address] [place] [address] PCP - General Family Medicine 11/23/18 Malu Medina, Becky [address] [place], [place] [phone] Pharmacist Internal Medicine 05/09/24 Tamie Vega OD [address] [place] [address] Optometry 02/16/25February [address] [place] [address] 3rd [place] [address] Gastroenterology 04/20/25 documented as of this encounter
--- OUTSIDE RECORDS SUMMARY | 2025-08-01 16:31 | XMS_ITS | Encounter Summary ---
Author Organization [employer] Address [address] [facility] 7t [place] [address] Care Team Providers Care Sandblast Operator Name Role Phone Libra Barone MD Primary Care Provider +1- [phone] Malu Medina PharmD Unavailable Tamie Vega OD Unavailable February Unavailable Encounter Details Date Type Department Care Team (Latest Contact Info) Description 03/14/2019 Abstract [facility] CONVERSIONS Dental, Provider, DDS Social History Tobacco [...] 9:00 AM EDT Office Visit [facility] [address] [place] [address] Libra Barone MD [address] [place] [address] documented as of this encounter Visit Diagnoses Not on filedocumented in this encounter Care Teams Sandblast Operator Relationship Specialty Start Date End Date Libra Barone MD [address] [place], [place] [phone] PCP - General Family Medicine 11/23/18 Maul Medina, LisaD [address] [place] [address] Pharmacist Internal Medicine 05/09/24 Tamie Vega OD [address] [place] [address] Optometry 02/16/[address] [place] [address] 3rd [place] [address] Gastroenterology 04/20/25 documented as of this encounter
--- OUTSIDE RECORDS SUMMARY | 2025-08-01 16:31 | XMS_ITS | Encounter Summary ---
Author Organization [employer] Address [address] [facility] 7t [place] [address] Care Team Providers Care Chili Maker Name Role Phone Libra Barone MD Primary Care Provider +1- [phone] Malu Medina PharmD Unavailable Tamie Vega OD Unavailable [phone] February Unavailable Encounter Details Date Type Department Care Team (Latest Contact Info) Description 03/25/2021 Abstract [facility] CONVERSIONS Dental, Provider, DDS Social [...] Description 08/09/2025 9:00 AM EDT Office Visit [facility] MEDICINE [address] [place] [address] Libra Barone MD [address] [place] [address] documented as of this encounter Visit Diagnoses Not on filedocumented in this encounter Care Teams Chili Maker Relationship Specialty Start Date End Date Libra Barone MD [address] [place], [place] [phone] PCP - General Family Medicine 11/23/18 Malu Medina, LisaD [address] [place] [address] Pharmacist Internal Medicine 05/09/24 Tamie Vega OD [address] [place] [address] Optometry 02/16/[address] [place] [address] 3rd [place] [address] Gastroenterology 04/20/25 documented as of this encounter
--- OUTSIDE RECORDS SUMMARY | 2025-08-01 16:31 | XMS_ITS | Encounter Summary ---
Author Organization [employer] Address [address] [facility] 7t [place] [address] Care Team Providers Care Olap Developer Name Role Phone Libra Barone MD Primary Care Provider +1- [phone] Malu Medina PharmD Unavailable [phone] Tamie Vega OD Unavailable February Unavailable Reason for Visit * Reason Onset Date Comments Med Refill 05/09/2025 Encounter Details Date Type Department Care Team ([facility] Contact Info) Description 05/09/2025 Telephone [facility] MEDICINE [address] [place], [place] [phone] Libra Barone MD 230 [place], [place] [phone] Med Refill Social History Tobacco Use Types [...] 05/09/2025 2:07 PM EDT Medication sent to [facility] on 01/30/25 #90 with 3 refills. * Telephone Encounter - Celestino Ortega - 05/09/2025 1:56 PM EDT TC from pt requesting medication refill. Medications needing refill : levothyroxine (Synthroid, Levoxyl) 75 MCG tablet To be sent to: [facility] - [place], [place] - [address] [facility] documented in this encounter Plan of Treatment Upcoming Encounters Date Type Department Care Team (Late st Contact Info) Description 08/09/2025 9:00 AM EDT Office Visit [facility] MEDICINE [address] [place] [address] Libra Barone MD [address] [place] [address] documented as of this encounter Goals Goal [...] documented as of this encounter Care Teams Olap Developer Relationship Specialty Start Date End Date Libra Barone MD [address] [place] [address] PCP - General Family Medicine 11/23/18 Malu Medina, PharmD [address] [place] [address] Pharmacist Internal Medicine 05/09/24 Tamie Vega OD [address] [place] [address] Optometry 02/16/25 Ming Tanya [address] [place] [address] 3[address] [place] [address] Gastroenterology 04/20/25 documented as of this encounter
--- OUTSIDE RECORDS SUMMARY | 2025-08-01 16:31 | XMS_ITS | Encounter Summary ---
Author Organization [employer] Address [address] [facility] 7t [place] [address] Care Team Providers Care Field Merchandiser Name Role Phone Libra Barone MD Primary Care Provider +1- [phone] Malu Medina PharmD Unavailable Tamie Vega OD Unavailable February Unavailable Reason for Visit * Reason Onset Date Comments FYI 07/28/2025 Encounter Details Date Type Department Care Team ([facility] Contact Info) Description 07/28/2025 Telephone [facility] [address] [place], [place] [phone] Libra Barone MD [address] [place], [place] [phone] FYI Social History Tobacco Use Types Packs/Day Years [...] encounter Miscellaneous Notes * Telephone Encounter - Evonne Hua RN - 07/28/2025 12:54 PM EDT Noted. Pt to call upon discharge for follow up. * Telephone Encounter - Celestino Ortega - 07/28/2025 12:48 PM EDT Tc from Sharon at [facility] reporting pt was admitted to [facility] this morning . Contact Sharon at [phone] documented in this encounter Plan of Treatment Upcoming Encounters Date Type Department Care Team (Late st Contact Info) Description 08/09/2025 9:00 AM EDT Office Visit [facility] [address] [place] [address] Libra Barone MD [address] [place] [address] documented as of this encounter Goals Goal [...] documented as of this encounter Care Teams Field Merchandiser Relationship Specialty Start Date End Date Libra Barone MD [address] [place] [address] PCP - General Family Medicine 11/23/18 Malu Medina PharmD [address] [place] [address] Pharmacist Internal Medicine 05/09/24 Tamie Vega OD [address] [place] [address] Optometry 02/16/25 Ming February [address] [place] [address] 3rd [place] [address] Gastroenterology 04/20/25 documented as of this encounter
--- OUTSIDE RECORDS SUMMARY | 2025-08-01 16:31 | XMS_ITS | Clinical Summary ---
Author Organization [employer] Address [address] [facility] [place] [address] [place] [address] Care Team Providers Care Biology Tutor Name Role Phone Libra Barone MD Primary Care Provider [phone] Malu Medina PharmD Unavailable Tamie Vega OD [...] be different from the original. Enrolled in [facility] DM clinic with Malu Medina, LisaD, [facility] Problem Noted Date Diagnosed Date Right upper [...] loss 06/22/2024 Overview (06/22/2024): -Abnormal audiogram at [facility] 05/2024 -ENT referral placed 06/22/24 Assessment & Plan (04/19/2025 2:34 PM EDT): -Abnormal audiogram at [facility] 05/2024 -ENT referral placed 06/22/24 History of postmenopausal bleeding 06/22/2024 Overview (04/19/2025): Seen by Dr. Alonso at [facility] 73/. -co testing done, recommended ultrasound to [...] 1.7-2.7 cm. Recommended to Gyne Onc consult Glazier Supervisor Onc referral for a consult placed by Dr. Alonso 09/08/24 Seen by message clerk 09/21/24 MRI recommended and possible surery in the future. Follow up after MRI. (Glazier Supervisor noted does not have location of signature of provider) -Saw DIRECTOR CONSUMER at [facility] 09/21 for intake and a Televist 10/10/24. Per note by Dr. Rosanna Lowe who noted size and growth is stable dating back to 2020, recommending annual pelvic US. Assessment & Plan (04/19/2025 2:45 PM EDT): Seen by Dr. Alonso at [facility] 260/. -co testing done, recommended ultrasound to measure [...] 1.7-2.7 cm. Recommended to Gyne Onc consult Glazier Supervisor Onc referral for a consult placed by Dr. Alonso 09/08/24 Seen by message clerk 09/21/24 MRI recommended and possible surery in the future. Follow up after MRI. (Glazier Supervisor noted does not have location of signature of provider) -Saw DIRECTOR CONSUMER at [facility] 09/21 for intake and a [...] due after 04/19/26 -eye care facilitated by [facility] -dental home is [facility] -health care proxy given and filed 04/19/25 Assessment & Plan (04/19/2025 2:32 PM EDT): -next comprehensive annual evaluation due after 04/19/26 -eye care facilitated by [facility] -dental home is [facility] -health care proxy given and filed [...] Encounters Date Type Department Care Team Description 07/28/2025 Orders Only [facility] External Provider, [facility] 07/28/2025 Telephone [facility] [address] [place] [phone] Libra Barone MD FYI 07/27/2025 Orders Only GENERIC EXTERNAL DATA DEPARTMENT Provider, Generic External Data 07/22/2025 Orders Only [facility] External Provider, [facility] 07/21/2025 Orders Only GENERIC EXTERNAL DATA DEPARTMENT Provider, Generic External Data 07/20/2025 Patient Outreach [facility] [address] [place] [address] Libra Barone MD Transition Of Care (Tcm) (HDF scheduled. ) 07/20/2025 Telephone [facility] [address] [place] [phone] Libra Barone MD Medication Question 07/18/2025 Orders Only GENERIC EXTERNAL DATA DEPARTMENT Provider, Generic External Data Abdominal pain, unspecified abdominal location (Primary Dx) 07/13/[address] [address] Malu Medina, LisaD Benign hypertension 06/26/2025 Orders Only [facility] [address] [place] [phone] Libra Barone MD 06/23/[address] [address] Libra Barone MD 05/30/2025 Refill [facility] [address] [address] Libra Barone MD Mild intermittent asthma without complication; High blood sugar 05/22/2025 Travel 05/18/2025 Orders Only [facility] [address] [place] [phone] Sue Coats MD 05/09/2025 Telephone [facility] [address] [place] [phone] Libra Barone MD Med Refill 05/08/2025 Refill [facility] [address] [address] Libra Barnoe MD Oral herpes simplex infection from Last 3 Months Immunizations Immunization Administration [...] Description 08/09/2025 9:00 AM EDT Office Visit [facility] [address] [place] [address] Libra Barone MD [address] [place], [place] [phone] Health Maintenance Due Date Last Done Comments [...] history exists COVID-19 Vaccine ( season) 2025 10/22/2022, 05/20/2021, 04/10/2021 Influenza Vaccine (#1) 2025 , [...] Additional history exists Eye Exam 02/28/2027 02/28/2025, 040 06/2025, 02/28/2025, Additional history exists Colonoscopy 12/01/2027 [...] 7.2( 8:51 AM EDT) No Malu Mckinnon, Becky Procedures Procedure Name Priority Date/Time Associated Diagnosis Comments FL GUIDANCE IN OR Routine 07/28/2025 1:[address] ABDOMEN PELVIS W CONTRAST Routine 07/28/2025 4:28 AM EDT URINALYSIS, COMPLETE, WITH REFLEX TO CULTURE Routine 07/27/2025 11:13 PM EDT CBC WITH AUTO DIFFERENTIAL Routine 07/27/2025 8:47 PM EDT LIPASE Routine 07/27/2025 8:47 PM EDT BASIC METABOLIC PANEL Routine 07/27/2025 8:47 PM EDT HEPATIC FUNCTION PANEL Routine 07/27/2025 8:47 PM EDT MR MRCP Routine 07/22/2025 10:17 AM EDT US [...] Recently Relevant to Health Maintenance Results * FL Guidance in OR (07/28/2025 1:53 PM EDT) Anatomical Region Laterality Modality X-Ray Angiograph y 07/28/2025 1:53 PM EDT Narrative 07/28/2025 2:48 PM EDT [place] [address] Fluoroscopy Report Signed Patient: Sridevi Pruitt I MR#: [id number] 2336 : 1960 Acct:[id number] Age/Sex: 65 / F ADM Date: 07/28/25 Loc: HO.S3 354-[address]: Dex Silva MD Ordering Physician: Arya Gutierrez MD Date of Service: 07/28/25 Procedure(s): FL guidance in OR Accession Number(s): [id number] cc: Libra Barone MD; Arya Gutierrez MD [...] 07/28/25 1445 DD/ 1353 TD/TT: 07/28/25 1424 Medical Secretary Receptionist: Procedure Note Donotuseinterpreter, Image - 07/28/2025 [place] [address] Fluoroscopy Report Signed Patient: Sridevi Pruitt IMR#: [id number] 2336 : 9Acct:[id number] Age/Sex: 65 / FADM Date: 07/28/25 Loc: HO.S3 354-[address]: Dex Silva MD Ordering Physician: Arya Gutierrez MD Date of Service: 07/28/25 Procedure(s): FL guidance in OR Accession Number(s): [id number] cc: Libra Barone MD; Arya Gutierrez MD [...] 07/28/25 1445 DD/ 1353 TD/TT: 07/28/25 1424 Medical Secretary Receptionist: [facility] External Provider IMG IR PROCEDURES Final Result * CT Abdomen Pelvis w/ Contrast (07/28/2025 4:28 AM EDT) Only the most recent of2 resultswithin the time period is included. Anatomical Region Laterality Modality Body, Pelvis, Abdomen Computed T omography 07/28/2025 4:28 AM EDT Narrative 07/28/2025 4:30 AM EDT [place] [address] CT Scan Report Signed Patient: Sridevi Pruitt I MR#: [id number] 2336 : 1960 Acct:[id number] Age/Sex: 65 / F ADM Date: 07/27/25 Loc: HO.ED Attending Dr: Ordering Physician: Lester Santos Date of Service: 07/28/25 Procedure(s): CT abdomen pelvis w IV con Accession Number(s): [id number] cc: Libra Barone MD; Lester Santos Report Number: [id number]: Total DLP = 598.00 mGy-cm Reason for Exam: upper abdominal pain, recent cholecystectomy CLINICAL HISTORY: upper abdominal pain, recent cholecystectomy CT abdomen and pelvis with contrast Comparison: CT - CT ABDOMEN PELVIS W IV CON - 07/28/25 01:[address]/REG/SR - CT ABDOMEN PELVIS W IV CON - 07/21/25 22:07 EDT Findings: The lung bases are clear. Gallbladder is surgically absent. Calcification of the liver represents prior granulomatous disease. No focal hepatic lesion identified. Pancreas, spleen and adrenal glands are within normal limits. Kidneys enhance symmetrically and are non hydronephrotic. No bowel obstruction, pneumoperitoneum, or pneumatosis. Sigmoid diverticulosis is present without CT evidence of diverticulitis. Visualized appendix is normal. 2 x 2.5 cm circumscribed fat containing structures in the uterus, uterine lipoma unchanged since prior. The bones are intact. IMPRESSION: No acute findings. This document has been electronically signed by: Oleg Marie MD, PHD on 07/28/2025 04:28:34 Dictated By: Oleg Marie MD Signed By: <Electronically signed by Oleg Marie MD in OV> 07/28/25428 DD/ 7 TD/TT: 07/28/25427 Medical Secretary Receptionist: Procedure Note Donotuseinterpreter, Image - 07/28/[address] [address] [address] Scan Report Signed Patient: Sridevi Pruitt IMR#: [id number] 2336 : 9Acct:[id number] Age/Sex: 65 / FADM Date: 07/27/25 Loc: HO.ED Attending Dr: Ordering Physician: Lester Santos Date of Service: 07/28/25 Procedure(s): CT abdomen pelvis w IV con Accession Number(s): [id number] cc: Libra Barone MD; Lester Santos Report Number: [id number]: Total DLP = 598.00 mGy-cm Reason for Exam: upper abdominal pain, recent cholecystectomy CLINICAL HISTORY: upper abdominal pain, recent cholecystectomy CT abdomen and pelvis with contrast Comparison: CT - CT ABDOMEN PELVIS W IV CON - 07/28/25 01:[address]/REG/SR - CT ABDOMEN PELVIS W IV CON - 07/21/25 22:07 EDT Findings: The lung bases are clear. Gallbladder is surgically absent. Calcification of the liver represents prior granulomatous disease. No focal hepatic lesion identified. Pancreas, spleen and adrenal glands are within normal limits. Kidneys enhance symmetrically and are non hydronephrotic. No bowel obstruction, pneumoperitoneum, or pneumatosis. Sigmoid diverticulosis is present without CT evidence of diverticulitis. Visualized appendix is normal. 2 x 2.5 cm circumscribed fat containing structures in the uterus, uterine lipoma unchanged since prior. The bones are intact. IMPRESSION: No acute findings. This document has been electronically signed by: Oleg Marie MD, PHD on 07/28/2025 04:28:34 Dictated By: Oleg Marie MD Signed By: <Electronically signed by Oleg Marie MD in OV> 07/28/25428 DD/ 7 TD/TT: 07/28/25427 Medical Secretary Receptionist: [facility] External Provider IMG CT PROCEDURES Edited Result - Final * (ABNORMAL) Urinalysis, Complete, with Reflex to Culture (07/27/2025 11:13 PM EDT) Only the most recent of2 resultswithin the time period is included. Color Urine Dark Yellow [facility] Appearance Urine Clear [facility] PH 7.0 5.0 - 9.0 [facility] Glucose Urine UA Negative Negative mg/dL [facility] Urine Blood Negative Negative [facility] Specific [place] - Urine 1.010 1.005 - 1.025 [facility] Urine Protein Negative Neg-Trace mg/dL [facility] Urine Ketones Negative Negative mg/dL [facility] Nitrite Urine Negative Negative [facility] Leukocyte Esterase Urine Small (1+)(A) Negative [facility] RBC Urine 0-2 0 - 2 /HPF [facility] Urine WBC 6-10(A) 0 - 5 /HPF [facility] Urine Squamous Epithelial Cell 6-10 0 - 2 /HPF [facility] Urine Bacteria None Seen None Seen [facility] Hyaline Casts, Urine 0-2 0 - 2 /LPF [facility] 07/27/2025 11:1 3 PM EDT 07/27/2025 11:17 PM EDT Narrative [facility] - 07/27/2025 11:46 PM EDT [id number], Clean Catch us Generic External Data Provider LAB URINE ORDERAB LES Final Result [facility] [address] [place] [address] [phone] * (ABNORMAL) CBC auto differential (07/27/2025 8:47 PM EDT) Only the most recent of3 resultswithin the time period is included. White Blood Count 9.0 4.8 - 10.8 X10*3/uL [facility] Red Blood Count 4.60 4.20 - 5.50 X10*6/uL [facility] Hemoglobin 13.7 12.0 - 16.0 g/dl [facility] Hematocrit 40.7 37.0 - 47.0 % [facility] Mean Corpuscular Volume 88.5 80.0 - 98.0 fL [facility] Mean Corpuscular Hemoglobin 29.8 27.0 - 33.0 pg [facility] Mean Corpuscular HGB Conc 33.7 31.0 - 35.0 g/dl [facility] Red Cell Distribution Width 15.3 11.0 - 16.0 % [facility] Platelet Count 328 160 - 400 X10*3/uL [facility] Mean Platelet Volume 10.6 9.4 - 12.3 fL [facility] Neutrophils Percent Auto 62.7 45 - 73 % [facility] Imm Gran Pct Auto 0.7(H) 0.0 - 0.4 % [facility] Lymphocytes Percent Auto 27.3 20 - 40 % [facility] Monocytes Percent Auto 6.6 2 - 11 % [facility] Eosinophils Percent Auto 2.1 0 - 4 % [facility] Basophils Percent Auto 0.6 0 - 2 % [facility] NRBC Pct Auto 0.0 0.0 - 0.2 /100WBC [facility] Neutrophils Absolute Auto 5.7 2.0 - 8.3 x10*3/uL [facility] Imm Gran Abs Auto 0.06(H) 0.00 - 0.03 X10*3/uL [facility] Lymphocytes Absolute Auto 2.5 1.2 - 4.9 X10*3/uL [facility] Monocytes Absolute Auto 0.6 0.1 - 1.2 X10*3/uL [facility] Eosinophils Absolute Auto 0.2 0.0 - 0.4 X10*3/uL [facility] Basophils Absolute Auto 0.1 0.0 - 0.2 X10*3/uL [facility] NRBC Abs Auto 0.000 0.0 - 0.012 X10*3/uL [facility] 07/27/2025 8:47 PM EDT 07/27/2025 8:50 PM EDT us Generic External Data Provider LAB BLOOD ORDERAB LES Final Result Performing Organization Address [facility]/ZIP Co de Phone Number [facility] [address] [place] [phone] * (ABNORMAL) Lipase (07/27/2025 8:47 PM EDT) Only the most recent of3 resultswithin the time period is included. Lipase 397(H) 8 - 78 U/L [facility] 07/27/2025 8:47 PM EDT 07/27/2025 8:50 PM EDT Generic External Data Provider LAB BLOOD ORDERAB LES Final Result Performing Organization Address [facility] de Phone Number [facility] [address] [place] [phone] * (ABNORMAL) Hepatic Function Panel (07/27/2025 8:47 PM EDT) Only the most recent of2 resultswithin the time period is included. Bilirubin, Total 2.1(H) 0.0 - 1.0 mg/dL [facility] Bilirubin, Direct 1.6(H) 0.0 - 0.5 mg/dL [facility] Aspartate Amino Transferase 331(H) 5 - 31 U/L [facility] Alanine Aminotransferase 324(H) 0 - 31 U/L [facility] Total Protein 7.0 6.5 - 8.0 g/dL [facility] Albumin Level 4.1 3.5 - 5.0 g/dL [facility] Alkaline Phosphatase 733(H) 39 - 117 U/L [facility] 07/27/2025 8:47 PM EDT 07/27/2025 8:50 PM EDT Generic External Data Provider LAB BLOOD ORDERAB LES Final Result Performing Organization Address City/[facility]/ZIP Co de Phone Number [facility] [address] [place] [phone] * (ABNORMAL) Basic Metabolic Panel (07/27/2025 8:47 PM EDT) Only the most recent of2 resultswithin the time period is included. Sodium 140 135 - 145 mmol/L [facility] Potassium 4.2 3.3 - 5.1 mmol/L [facility] Chloride 103 96 - 108 mmol/L [facility] Carbon Dioxide 29 22 - 29 mmol/L [facility] Anion Gap 12 12 - 20 [facility] Urea Nitrogen (BUN) 13 9 - 16 mg/dL [facility] Creatinine, Serum 0.75 0.5 - 1.4 mg/dL [facility] Creatinine Clr Calc Pharmacy 72.4 [facility] Comment:Provided height and weight: 157.48 cm,80.4 kg.eGFR (calculated from the MDRD study equation) and eCrCl(calculated from the Cockcroft-Gault equation) are based ondifferent parameters and may not yield comparable results.If eCrCl result is absurd, please check patient'sheight/weight. Estimated Glomerular Filt Rate >60 [facility] Comment:Chronic Kidney Disea se: Estimated GFR < 60 mL/min/1.26t0Iijafp Kidney Disease: Estimated GFR < 15 mL/min/1.73m2 Glucose 151(H) 60 - 115 mg/dL [facility] Calcium 9.3 8.4 - 10.2 mg/dL [facility] 07/27/2025 8:47 PM EDT 07/27/2025 8:50 PM EDT us Generic External Data Provider LAB BLOOD ORDERAB LES Final Result Performing Organization Address [facility]/ZIP Co de Phone Number [facility] [address] [place] [phone] * MR MRCP (07/22/2025 10:17 AM EDT) Anatomical Region Laterality Modality Lower Extremities Left Magnetic Reson ance 07/22/2025 10:1 7 AM EDT Narrative 07/22/2025 10:19 AM EDT [address] [address] Magnetic Resonance Report Signed Patient: Sridevi Pruitt I MR#: [id number] 2336 : 1960 Acct:[id number] Age/Sex: 65 / F ADM Date: 07/22/25 Loc: [facility] 346-[address]: Savanah Vega MD Ordering Physician: Savanah Vega MD Date of Service: 07/22/25 Procedure(s): MR MRCP Accession Number(s): [id number] cc: Libra Barone MD; Savanah Vega MD [...] 07/22/25 1018 DD/ 1017 TD/TT: 07/22/25 1017 Medical Secretary Receptionist: Procedure Note Donotuseinterpreter, Image - 07/22/[address] [address] Magnetic Resonance Report Signed Patient: Sridevi Pruitt [facility]#: [id number] 2336 : 9Acct:[id number] Age/Sex: 65 / FADM Date: 07/22/25 Loc: HO.S3 346-[address]: Savanah Vega MD Ordering Physician: Savanah Vega MD Date of Service: 07/22/25 Procedure(s): MR MRCP Accession Number(s): [id number] cc: Libra Barone MD; Savanah Vega MD [...] 07/22/25 1018 DD/ 1017 TD/TT: 07/22/25 1017 Medical Secretary Receptionist: [facility] External Provider IMG MRI PROCEDURES Final Result * US Abdomen Limited (07/21/2025 11:46 PM EDT) Only the most recent of2 resultswithin the time period is included. Anatomical Region Laterality Modality Abdomen Ultrasound 07/21/2025 11:4 6 PM EDT Narrative 07/21/2025 11:48 PM EDT [address] [address] Ultrasound Report Signed Patient: Sridevi Pruitt I MR#: [id number] 2336 : 1960 Acct:[id number] Age/Sex: 65 / F ADM Date: 07/21/25 Loc: HO.ED Attending Dr: Ordering Physician: Noel Ch MD Date of Service: 07/21/25 Procedure(s): US abdomen limited Accession Number(s): [id number] cc: Libra Barone MD; Noel Ch MD [...] in OV> 07/21/252346 DD/ 45 TD/TT: 07/21/252345 Medical Secretary Receptionist: Procedure Note Donotuseinterpreter, Image - 07/21/[address] [address] Ultrasound Report Signed Patient: Sridevi Pruitt IMR#: [id number] 2336 : 1960cct:[id number] Age/Sex: 65 / FADM Date: 07/21/25 Loc: HO.ED Attending Dr: Ordering Physician: Noel Ch MD Date of Service: 07/21/25 Procedure(s): US abdomen limited Accession Number(s): [id number] cc: Libra Barone MD; Noel Ch MD [...] in OV> 07/21/252346 DD/ 45 TD/TT: 07/21/252345 Medical Secretary Receptionist: [facility] External Provider IMG US PROCEDURES Edited Result - Final * Partial Thromboplastin Time, Activated (APTT) (07/21/2025 9:11 PM EDT) Partial Thromboplastin Time 28.8 26.7 - 34.1 SEC [facility] 07/21/2025 9:11 PM EDT 07/21/2025 9:19 PM EDT Generic External Data Provider LAB BLOOD ORDERAB LES Final Result [facility] [address] [place] [phone] * Prothrombin Time-INR (07/21/2025 9:11 PM EDT) Prothrombin Time 11.9 10.9 - 12.4 SEC [facility] INTERNATIONAL NORM RATIO 1.0 0.9 - 1.1 [facility] Comment:INTERNATIONAL NORMAL IZED RATIO (INR) REFERENCE [...] ORDERAB LES Final Result Performing Organization Address City/State/[facility] Co de Phone Number [facility] [address] [place] [phone] * XR KUB and Upright 2 Views (07/21/2025 8:11 PM EDT) Anatomical Region Laterality Modality Radiographic Courtney ging 07/21/2025 8:11 PM EDT Narrative 07/21/2025 8:13 PM EDT [address] [address] XRay Report Signed Patient: Sridevi Pruitt I MR#: [id number] 2336 : 1960 Acct:[id number] Age/Sex: 65 / F ADM Date: 07/21/25 Loc: HO.ED Attending Dr: Ordering Physician: Lester Santos Date of Service: 07/21/25 Procedure(s): XR KUB Accession Number(s): [id number] cc: Libra Barone MD; Lester Santos CLINICAL [...] in OV> 07/21/252011 DD/ 10 TD/TT: 07/21/252010 Medical Secretary Receptionist: Procedure Note Donotuseinterpreter, Image - 07/21/2025 [place] [address] XRay Report Signed Patient: Sridevi Pruitt IMR#: [id number] 2336 : 9Acct:[id number] Age/Sex: 65 / FADM Date: 07/21/25 Loc: HO.ED Attending Dr: Ordering Physician: Lesetr Santos Date of Service: 07/21/25 Procedure(s): XR KUB Accession Number(s): [id number] cc: Libra Barone MD; Lester Santos CLINICAL [...] in OV> 07/21/252011 DD/ 10 TD/TT: 07/21/252010 Medical Secretary Receptionist: [facility] External Provider IMG XR PROCEDURES Final Result * (ABNORMAL) Comprehensive Metabolic Panel (07/21/2025 7:40 PM EDT) Sodium 142 135 - 145 mmol/L [facility] Potassium 4.2 3.3 - 5.1 mmol/L [facility] Chloride 104 96 - 108 mmol/L [facility] Carbon Dioxide 27 22 - 29 mmol/L [facility] Anion Gap 15 12 - 20 [facility] Urea Nitrogen (BUN) 12 9 - 16 mg/dL [facility] Creatinine, Serum 0.66 0.5 - 1.4 mg/dL [facility] Creatinine Clr Calc Pharmacy 84.2 [facility] Comment:Provided height and weight: 157.48 cm,83.915 kg.eGFR (calculated from the MDRD study equation) and eCrCl(calculated from the Cockcroft-Gault equation) are based ondifferent parameters and may not yield comparable results.If eCrCl result is absurd, please check patient'sheight/weight. Estimated Glomerular Filt Rate >60 [facility] Comment:Chronic Kidney Disea se: Estimated GFR < 60 mL/min/1.45o8Xfijwu Kidney Disease: Estimated GFR < 15 mL/min/1.73m2 Glucose 166(H) 60 - 115 mg/dL [facility] Calcium 9.6 8.4 - 10.2 mg/dL [facility] Bilirubin, Total 2.2(H) 0.0 - 1.0 mg/dL [facility] Aspartate Amino Transferase 1,210(H) 5 - 31 U/L [facility] Alanine Aminotransferase 892(H) 0 - 31 U/L [facility] Total Protein 7.1 6.5 - 8.0 g/dL [facility] Albumin Level 4.2 3.5 - 5.0 g/dL [facility] Alkaline Phosphatase 377(H) 39 - 117 U/L [facility] 07/21/2025 7:40 PM EDT 07/21/2025 7:43 PM EDT us Generic External Data Provider LAB BLOOD ORDERAB LES Final Result Performing Organization Address [facility]/ZIP Co de Phone Number [facility] [address] [place] [phone] * (ABNORMAL) Urinalysis w/reflex microscopic (07/18/2025 10:05 AM EDT) Color Urine Yellow [facility] Appearance Urine Clear [facility] PH 5.5 5.0 - 9.0 [facility] Glucose Urine UA Negative Negative mg/dL [facility] Urine Blood Trace(A) Negative [facility] Specific [place] - Urine 1.025 1.005 - 1.025 [facility] Urine Protein Negative Neg-Trace mg/dL [facility] Urine Ketones Negative Negative mg/dL [facility] Nitrite Urine Negative Negative [facility] Leukocyte Esterase Urine Negative Negative [facility] 07/18/2025 10:0 5 AM EDT 07/18/2025 10:08 AM EDT Narrative [facility] - 07/18/2025 10:14 AM EDT Urine, Clean Catch Generic External Data Provider LAB URINE ORDERAB LES Final Result Performing Organization Address [facility] Co de Phone Number [facility] [address] [place] [phone] * High Sensitivity Troponin I (07/18/2025 7:55 AM EDT) TROPONIN I HIGH SENSITIVITY <2.7 <3.5 - 17.0 ng/L [facility] Comment:The Jacinto high sens itivity Troponin-I results should beused in conjunction with other diagnostic information suchas ECG, clinical observations and information, and patientsymptoms to aid in the diagnosis of HI. 07/18/2025 7:55 AM EDT 07/18/2025 8:42 AM EDT Generic External Data Provider LAB BLOOD ORDERAB LES Final Result Performing Organization Address [facility]/State/ZIP Co de Phone Number [facility] [address] [place] [phone] * US Extremity Non Vascular Left Limited (06/26/2025 1:09 PM EDT) Anatomical Region Laterality Modality Ultrasound 06/26/2025 1:09 PM EDT Narrative 06/26/2025 1:30 PM EDT [address] [address] Ultrasound Report Signed Patient: Sridevi Pruitt I MR#: [id number] 2336 : 1960 Acct:[id number] Age/Sex: 65 / F ADM Date: 06/26/25 Loc: HO.US Attending Dr: Libra Barone MD Ordering Physician: Libra Barone MD Date of Service: 06/26/25 Procedure(s): US Extremity Nonvas Limited LT Accession Number(s): [id number] cc: Libra Barone MD Exam:US Extremity Nonvas [...] 06/26/25 1327 DD/ 1309 TD/TT: 06/26/25 1312 Medical Secretary Receptionist: Procedure Note Donjessicainterpreter, Image - 06/26/[address] [address] Ultrasound Report Signed Patient: Sridevi rPuitt IMR#: [id number] : 1960cct:[id number] Age/Sex: 65 / FADM Date: 06/26/25 Loc: HO.US Attending Dr: Libra Barone MD Ordering Physician: Libra Barone MD Date of Service: 06/26/25 Procedure(s): US Extremity Nonvas Limited LT Accession Number(s): [id number] cc: Libra Barone MD Exam:US Extremity Nonvas [...] 06/26/25 1327 DD/ 1309 TD/TT: 06/26/25 1312 Medical Secretary Receptionist: Libra Barone MD IMG US PROCEDURES Final Re sult * BI Mammogram Diagnostic Tomosynthesis Bilateral (05/18/2025 1:30 PM EDT) Anatomical Region Laterality Modality Breast Bilateral Mammography 05/18/2025 1:30 PM EDT Narrative 05/18/2025 2:45 PM EDT [facility] [address] [place] [address] Mammography Report Signed Patient: Sridevi Pruitt I MR#: [id number] 2336 : 1960 Acct:[id number] Age/Sex: 64 / F ADM Date: 05/18/25 Loc: HO.MAMMO Attending Dr: Sue Coats MD Ordering Physician: Sue Coats MD Results: 2Be nign Findings Date of Service: 05/18/25 Follow Up: 1 Year From Orig ina Mammogram Procedure(s): MM tomosynthesis diagnostic BI Accession Number(s): [id number] cc: Libra Barone MD; Sue Coats MD [...] clip from previous needle core biopsy. Left: [place] marker in the lower inner left breast [...] 05/18/25 1443 DD/ 1330 TD/TT: 05/18/25 1358 Medical Secretary Receptionist: Procedure Note Donotuseinterpreter, Image - 05/18/2025 [facility] [address] [place], [place] [address] Mammography Report Signed Patient: Sridevi Pruitt IMR#: [id number] : 9Acct:[id number] Age/Sex: 64 / FADM Date: 05/18/25 Loc: HO.MAMMO Attending Dr: Sue Coats MD Ordering Physician: Sue Coats MDResults: 2Be nign Findings Date of Service: 05/18/25Follow Up: 1 Year From Orig ina Mammogram Procedure(s): MM tomosynthesis diagnostic BI Accession Number(s): [id number] cc: Libra Barone MD; Sue Coats MD [...] clip from previous needle core biopsy. Left: [place] marker in the lower inner left breast [...] 05/18/25 1443 DD/ 1330 TD/TT: 05/18/25 1358 Medical Secretary Receptionist: Sue Coats MD IMG BI PROCEDURES Final Result * BI US Breast Limited Left (05/18/2025 1:23 PM EDT) Anatomical Region Laterality Modality Breast Left Ultrasound 05/18/2025 1:23 PM EDT Narrative 05/18/2025 2:45 PM EDT [address] [place] [address] Ultrasound Report Signed Patient: Sridevi Pruitt I MR#: [id number] 2336 : 1960 Acct:[id number] Age/Sex: 64 / F ADM Date: 05/18/25 Loc: HO.MAMMO Attending Dr: Sue Coats MD Ordering Physician: Sue Coats MD Date of Service: 05/18/25 Procedure(s): US breast LT limited mamm only Accession Number(s): [id number] cc: Libra Barone MD; Sue Coats MD [...] clip from previous needle core biopsy. Left: [place] marker in the lower inner left breast [...] 05/18/25 1443 DD/ 1323 TD/TT: 05/18/25 1422 Medical Secretary Receptionist: Procedure Note Donotuseinterpreter, Image - 05/18/[address] [place] [address] Ultrasound Report Signed Patient: Sridevi Pruitt IMR#: [id number] : 9Acct:[id number] Age/Sex: 64 / FADM Date: 05/18/25 Loc: HO.MAMMO Attending Dr: Sue Coats MD Ordering Physician: Sue Coats MD Date of Service: 05/18/25 Procedure(s): US breast LT limited mamm only Accession Number(s): [id number] cc: Libra Barone MD; Sue Coats MD [...] clip from previous needle core biopsy. Left: [place] marker in the lower inner left breast [...] 05/18/25 1443 DD/ 1323 TD/TT: 05/18/25 1422 Medical Secretary Receptionist: us Sue Coats MD IMG US PROCEDURES Final Result * Albumin, Random Urine W/Creatinine (04/18/2025 8:51 AM EDT) Creatinine, Urine 214.51 mg/dL [facility] Microalbumin Urine 16.0 mg/L [facility] Microalbum Creatinine Ratio Ur 7.4 <30 ug/mg cr [facility] Comment:Albumin/Creatinine R atio Reference Ranges: Normal: < 30 ug/mg creatinine Microalbuminuria: 30 - 300 ug/mg creatinineClinical Albuminuria: > 300 ug/mg creatinine Urine 04/18/2025 8:51 AM EDT 04/18/2025 11:06 AM EDT us Libra Barone MD LAB URINE ORDERABLES Final Result [facility] [address] [place] [phone] * (ABNORMAL) Hemoglobin A1c (04/18/2025 8:51 AM EDT) Hemoglobin A1c 7.2(H) <6.0 % [facility] Comment:Hemoglobin A1C Refer ence Range Adults: 4.8 - 6.0 % Non diabetic: < 6.0 % Goal: < 7.0 %Additional Action Suggested: > 8.0 %Note: Hemoglobin A1c results are invalid for patients with abnormal amounts of HbF. Blood transfusions may impact the HbA1c concentration in the patient sample. Estimated Average Glucose 160 mg/dL [facility] Comment:eAG = Estimated ave rage glucose which is %A1C expressed asaverage glucose, using the formula of the F9L-LszgpviLqifezc Glucose study (ADAG), Diabetes Care, Vol.31,#8,2007 Blood Venous blood specimen / Unknown 04/18/2025 8:51 AM EDT 04/18/2025 11:06 AM EDT us Libra Barone MD LAB BLOOD ORDERABLES Final Result [facility] [address] [place] [phone] * Lipid Panel, Standard (04/18/2025 8:51 AM EDT) Triglycerides 61 <150 mg/dL [facility] Comment:Desirable Triglyceri de: less than 150 mg/dLBorderline High Triglyceride 150-199 mg/dLHigh Triglyceride: 200-499 mg/dLVery High Triglyceride: greater than or equal to 5OO mg/dL Cholesterol 144 <200 mg/dL [facility] Comment:Desirable Cholestero l: less than 200 mg/dLBorderline High Cholesterol: 200-239 mg/dLHigh Cholesterol: greater than 239 mg/dL LDL Cholesterol Calculated 79 <100 mg/dL [facility] Comment:Desirable LDL: less than 100 mg/dLNear Optimal/Above Optimal LDL: 110- 129 mg/dLBorderline High LDL: 130-159 mg/dLHigh LDL: 160-189 mg/dLVery High LDL: greater than or equal to 190 mg/dL HDL Cholesterol 53 >40 mg/dL [facility] Comment:Desirable HDL: great er than 40 mg/dL Note: This HDL assay may give artificially low results in patients with liver disease. Blood Venous blood specimen / Unknown 04/18/2025 8:51 AM EDT 04/18/2025 11:06 AM EDT us Libra Barone MD LAB BLOOD ORDERABLES Final Result [facility] [address] [place] [address] [phone] * ThinPrep Imaging Pap and HPV mRNA E6/E7 with Reflex to HPV 16,18/45 (06/21/2024 9:52 AM EDT) HPV 16 RNA [facility] HPV 18/45 RNA [facility] HPV nRNA E6/E7 Not Detected Not Detected [facility] Comment:Methodology: Transcr iption-Mediated AmplificationThis assay detects E6/E7 viral messenger RNA (mRNA) from 14high-risk HPV types (16,18,31,33,35,39,45,51,52,56,58,59,66,68).Cervical sources are required for HPV testing.If a vaginal source from a patient who has had atotal hysterectomy with removal of cervix wassubmitted, please contact the testing laboratoryfor alternative testing options.For additional information, please refer [email or web address](This link if provided for information/educational purposes only.)THIS TEST WAS PERFORMED AT:[employer] [place] [phone] KHAN MD SOURCE: SEE NOTE [facility] Comment:Cervix Report Status: [facility] Clinical Information: SEE NOTE [facility] Comment:ROUTINE LMP: SEE NOTE [facility] Comment:PM Prev. PAP: SEE NOTE [facility] Comment:06/05/22 Prev. BX: SEE NOTE [facility] Comment:NONE GIVEN Statement Of Adequacy: SEE NOTE [facility] Comment:SATISFACTORY FOR GHAZAL CORONA General Categorization: [facility] Interpretation/Result: SEE NOTE [facility] Comment:Cytology Results: Ne gative for intraepitheliallesion or malignancy.Atrophic pattern; predominantly parabasal cells Cytology Comment SEE NOTE [facility] Comment:This Pap test has be en evaluated with computerassisted technology. Business Intern: SEE NOTE [facility] Comment:BK,CT(ASCP)CT screen ing location: [address] Review Business Intern: [facility] Pathologist [facility] PAP Infection [facility] See Note SEE NOTE [facility] Comment:EXPLANATORY NOTE:The Pap is [...] AM EDT 06/21/2024 2:35 PM EDT Narrative [facility] - 06/23/2024 12:57 PM EDT SEE SCANNED RESULTS IN EMRWas previous PAP abnormal? YesIf PAP abnormal, please specify: hpv +Clinical Information: RoutineCollection Date: 06/21/24LMP: postmenopausalDate of previous PAP 06/05/22Performed by: : Cervical us Generic External Data Provider LAB PATHOLOGY ORD ERABLES Final Result [facility] [address] [place] [address] [phone] * Hepatitis Panel, General (07/22/2023 1:58 PM EDT) Hepatitis A IgM Nonreactive Nonreactive [facility] Comment:IgM antibodies to WOLF V not detected; does not exclude earlyacute or recovered HAV infection. ~Hepatitis B Surface Antibody REACTIVE Nonreactive [facility] Comment:REACTIVE: > 11.99 mI U/mL Hepatitis B Core Antibody Nonreactive Nonreactive [facility] Hepatitis C Antibody Nonreactive Nonreactive [facility] Comment:Antibodies to HCV no t detected; does not exclude early acuteHCV infection. Hepatitis B Surface Ag Negative Negative [facility] 07/22/2023 1:58 PM EDT 07/22/2023 1:59 PM EDT [facility] External Provider LAB BLO OD ORDERABLES Final Result [facility] [address] [place] [address] [phone] * Hm Colonoscopy (12/01/2022 12:16 PM EST) Historical Provider MD HEALTH MAINTENANCE Final Result from Last 3 Months or Most Recently Relevant to Health Maintenance Insurance [address] [place] [phone] FORMERLY [facility] MCFP OPTIONS (HMO D-SNP) [facility] STANDARD DENTAL - [facility] Care Teams Biology Tutor Relationship Specialty Start Date End Date Carver, MD Libra [address] [place] [address] PCP - General Family Medicine 11/23/18 Malu Medina, LisaD [address] [place] [address] Pharmacist Internal Medicine 05/09/24 Tamie Vega OD [address] [place] [phone] Optometry 02/16/25February [address] [place] [address] 3rd [place] [address] Gastroenterology 04/20/25
--- OUTSIDE RECORDS SUMMARY | 2025-08-01 16:31 | XMS_ITS | Encounter Summary ---
Author Organization [employer] Address [address] [facility] [address] [place] [address] Care Team Providers Care Crm Specialist Name Role Phone Libra Barone MD Primary Care Provider [phone]- [phone] Malu Medina PharmD Unavailable [phone] Tamie Vega OD Unavailable [phone] February Unavailable Encounter Details Date Type Department Care Team ([facility] Contact Info) Description 07/27/2025 Orders Only GENERIC EXTERNAL DATA DEPARTMENT [...] Description 08/09/2025 9:00 AM EDT Office Visit [facility] [address] [place] [address] Libra Barone MD [address] [place] [address] documented as of this encounter Goals Goal Patient Goal Type Associated Problems Recent Progress Patient-Stated? Author Blood Pressure < 140/90 Blood Pressure 118/76(2024 3:15 PM EDT) No Jass-Malu Nash, PharmD Hemoglobin A1c < 7 Result Component 7.2( 8:51 AM EDT) No Malu Mckinnon PharmD documented as of this encounter Procedures Procedure Name Priority Date/Time Associated Diagnosis Comments CT ABDOMEN PELVIS W CONTRAST Routine 07/28/2025 4:28 AM EDT URINALYSIS, COMPLETE, WITH REFLEX TO CULTURE Routine 07/27/2025 11:13 PM EDT CBC WITH AUTO DIFFERENTIAL Routine 07/27/2025 8:47 PM EDT LIPASE Routine 07/27/2025 8:47 PM EDT HEPATIC FUNCTION PANEL Routine 07/27/2025 8:47 PM EDT BASIC METABOLIC PANEL Routine 07/27/2025 8:47 PM EDT documented in this encounter Results * CT Abdomen Pelvis w/ Contrast (07/28/2025 4:28 AM EDT) Anatomical Region Laterality Modality Body, Pelvis, Abdomen Computed T omography 07/28/2025 4:28 AM EDT Narrative 07/28/2025 4:30 AM EDT [place] [address] [address] Scan Report Signed Patient: Sridevi Pruitt I MR#: [id number] 2336 : 1960 Acct:[id number] Age/Sex: 65 / F ADM Date: 07/27/25 Loc: HO.ED Attending Dr: Ordering Physician: Lester Santos Date of Service: 07/28/25 Procedure(s): CT abdomen pelvis w IV con Accession Number(s): [id number] cc: Libra Barone MD; Lester Santos Report Number: [id number]: Total DLP = 598.00 mGy-cm Reason for [...] in OV> 07/28/25428 DD/ 7 TD/TT: 07/28/25427 [employer] Supervisor: Procedure Note Donotjuanjoseinterpreter, Image - 07/28/[address] [place] [address] [address] Scan Report Signed Patient: Sridevi Pruitt IMR#: [id number] 2336 : 9Acct:[id number] Age/Sex: 65 / FADM Date: 07/27/25 Loc: HO.ED Attending Dr: Ordering Physician: Lseter Santos Date of Service: 07/28/25 Procedure(s): CT abdomen pelvis w IV con Accession Number(s): [id number] cc: Libra Barone MD; Lester Santos Report Number: [id number]: Total DLP = 598.00 mGy-cm Reason for [...] in OV> 07/28/25428 DD/ 7 TD/TT: 07/28/25427 [employer] Supervisor: [facility] External Provider IMG CT PROCEDURES Edited Result - Final * (ABNORMAL) Urinalysis, Complete, with Reflex to Culture (07/27/2025 11:13 PM EDT) Color Urine Dark Yellow [facility] Appearance Urine Clear [facility] PH 7.0 5.0 - 9.0 [facility] Glucose Urine UA Negative Negative mg/dL [facility] Urine Blood Negative Negative [facility] Specific [place] - Urine 1.010 1.005 - 1.025 [facility] Urine Protein Negative Neg-Trace mg/dL [facility] Urine Ketones Negative Negative mg/dL [facility] Nitrite Urine Negative Negative [facility] Leukocyte Esterase Urine Small (1+)(A) Negative [facility] RBC Urine 0-2 0 - 2 /HPF [facility] Urine WBC 6-10(A) 0 - 5 /HPF [facility] Urine Squamous Epithelial Cell 6-10 0 - 2 /HPF [facility] Urine Bacteria None Seen None Seen [facility] Hyaline Casts, Urine 0-2 0 - 2 /LPF [facility] 07/27/2025 11:1 3 PM EDT 07/27/2025 11:17 PM EDT Narrative [facility] - 07/27/2025 11:46 PM EDT [id number], [employer] Generic External Data Provider LAB URINE ORDERAB LES Final Result [facility] [address] [place], [place] [phone] * (ABNORMAL) CBC auto differential (07/27/2025 8:47 PM EDT) White Blood Count 9.0 4.8 - 10.8 X10*3/uL [facility] Red Blood Count 4.60 4.20 - 5.50 X10*6/uL [facility] Hemoglobin 13.7 12.0 - 16.0 g/dl [facility] Hematocrit 40.7 37.0 - 47.0 % [facility] Mean Corpuscular Volume 88.5 80.0 - 98.0 fL [facility] Mean Corpuscular Hemoglobin 29.8 27.0 - 33.0 pg [facility] Mean Corpuscular HGB Conc 33.7 31.0 - 35.0 g/dl [facility] Red Cell Distribution Width 15.3 11.0 - 16.0 % [facility] Platelet Count 328 160 - 400 X10*3/uL [facility] Mean Platelet Volume 10.6 9.4 - 12.3 fL [facility] Neutrophils Percent Auto 62.7 45 - 73 % [facility] Imm Gran Pct Auto 0.7(H) 0.0 - 0.4 % [facility] Lymphocytes Percent Auto 27.3 20 - 40 % [facility] Monocytes Percent Auto 6.6 2 - 11 % [facility] Eosinophils Percent Auto 2.1 0 - 4 % [facility] Basophils Percent Auto 0.6 0 - 2 % [facility] NRBC Pct Auto 0.0 0.0 - 0.2 /100WBC [facility] Neutrophils Absolute Auto 5.7 2.0 - 8.3 x10*3/uL [facility] Imm Gran Abs Auto 0.06(H) 0.00 - 0.03 X10*3/uL [facility] Lymphocytes Absolute Auto 2.5 1.2 - 4.9 X10*3/uL [facility] Monocytes Absolute Auto 0.6 0.1 - 1.2 X10*3/uL [facility] Eosinophils Absolute Auto 0.2 0.0 - 0.4 X10*3/uL [facility] Basophils Absolute Auto 0.1 0.0 - 0.2 X10*3/uL [facility] NRBC Abs Auto 0.000 0.0 - 0.012 X10*3/uL [facility] 07/27/2025 8:47 PM EDT 07/27/2025 8:50 PM EDT us Generic External Data Provider LAB BLOOD ORDERAB LES Final Result Performing Organization Address City/[facility]/ZIP Co de Phone Number [facility] [address] [place] [phone] * (ABNORMAL) Lipase (07/27/2025 8:47 PM EDT) Lipase 397(H) 8 - 78 U/L [facility] 07/27/2025 8:47 PM EDT 07/27/2025 8:50 PM EDT Generic External Data Provider LAB BLOOD ORDERAB LES Final Result Performing Organization Address [facility] Co de Phone Number [facility] [address] [place] [phone] * (ABNORMAL) Basic Metabolic Panel (07/27/2025 8:47 PM EDT) Sodium 140 135 - 145 mmol/L [facility] Potassium 4.2 3.3 - 5.1 mmol/L [facility] Chloride 103 96 - 108 mmol/L [facility] Carbon Dioxide 29 22 - 29 mmol/L [facility] Anion Gap 12 12 - 20 [facility] Urea Nitrogen (BUN) 13 9 - 16 mg/dL [facility] Creatinine, Serum 0.75 0.5 - 1.4 mg/dL [facility] Creatinine Clr Calc Pharmacy 72.4 [facility] Comment:Provided height and weight: 157.48 cm,80.4 kg.eGFR (calculated from the MDRD study equation) and eCrCl(calculated from the Cockcroft-Gault equation) are based ondifferent parameters and may not yield comparable results.If eCrCl result is absurd, please check patient'sheight/weight. Estimated Glomerular Filt Rate >60 [facility] Comment:Chronic Kidney Disea se: Estimated GFR < 60 mL/min/1.88e7Ugbyxv Kidney Disease: Estimated GFR < 15 mL/min/1.73m2 Glucose 151(H) 60 - 115 mg/dL [facility] Calcium 9.3 8.4 - 10.2 mg/dL [facility] 07/27/2025 8:47 PM EDT 07/27/2025 8:50 PM EDT Generic External Data Provider LAB BLOOD ORDERAB LES Final Result Performing Organization Address City/[facility]/ZIP Co de Phone Number [facility] [address] [place] [address] [phone] * (ABNORMAL) Hepatic Function Panel (07/27/2025 8:47 PM EDT) Bilirubin, Total 2.1(H) 0.0 - 1.0 mg/dL [facility] Bilirubin, Direct 1.6(H) 0.0 - 0.5 mg/dL [facility] Aspartate Amino Transferase 331(H) 5 - 31 U/L [facility] Alanine Aminotransferase 324(H) 0 - 31 U/L [facility] Total Protein 7.0 6.5 - 8.0 g/dL [facility] Albumin Level 4.1 3.5 - 5.0 g/dL [facility] Alkaline Phosphatase 733(H) 39 - 117 U/L [facility] 07/27/2025 8:47 PM EDT 07/27/2025 8:50 PM EDT us Generic External Data Provider LAB BLOOD ORDERAB LES Final Result Performing Organization Address [facility]/ZIP Co de Phone Number [facility] [address] [place] [phone] documented in this encounter Visit Diagnoses Not on filedocumented in this encounter Additional Health Concerns Assessment Noted Time PHQ-9 Depression Total Score: 0 04/20/20 24 3:44 PM EDT documented as of this encounter Care Teams Crm Specialist Relationship Specialty Start Date End Date Libra Barone MD [address] [place] [address] PCP - General Family Medicine 11/23/18 Malu Medina, Becky [address] [place] [address] Pharmacist Internal Medicine 05/09/24 Tamie Vega OD [address] [place] [address] [phone] Optometry 02/16/[address] [place] [address] Drive 3rd [place] [address] Gastroenterology 04/20/25 documented as of this encounter
--- OUTSIDE RECORDS SUMMARY | 2025-08-01 16:32 | XMS_ITS | Encounter Summary ---
Author Organization [employer] Address [address] [facility] [address] [place] [address] Care Team Providers Care Job Press Feeder Name Role Phone Libra Barone MD Primary Care Provider [phone] Malu Medina PharmD Unavailable [phone] Tamie Vega OD Unavailable February Unavailable Reason for Visit * Reason Onset Date Comments Appointment Request 01/02/2025 Encounter Details Date Type Department Care Team ([facility] Contact Info) Description 01/02/2025 Telephone [facility] [address] [place], [place] [phone] Libra Barone MD [address] [place], [place] [phone] Appointment Request Social History Tobacco Use Types [...] Description 08/09/2025 9:00 AM EDT Office Visit [facility] [address] [place] [address] Libra Barone MD [address] [place] [address] documented as of this encounter Goals Goal [...] documented as of this encounter Care Teams Job Press Feeder Relationship Specialty Start Date End Date Libra Barone MD [address] [place] [phone] PCP - General Family Medicine 11/23/18 Malu Medina, LisaD [address] [place] [phone] Pharmacist Internal Medicine 05/09/24 Tamie Vega OD [address] [place] [phone] Optometry 02/16/[address] [place] [address] 3rd [place] [address] Gastroenterology 04/20/25 documented as of this encounter
== END 2025-08-01 14:31 | disposition home or self-care (01) ==
LOC: HO.HGI 13:50
PROVIDERS: PCP Family Medicine; Visit Provider Nurse Practitioner
DX: K21.9 Gastro-esophageal reflux disease without esophagitis (principal); K30 Functional dyspepsia; K29.60 Other gastritis without bleeding; R74.01 Elevation of levels of liver transaminase levels; K85.10 Biliary acute pancreatitis without necrosis or infection
CPT/HCPCS: 99214

== ENCOUNTER → 2025-08-01 13:49 | Outpatient (BNVA) | payer OTHER, SELFPAY | PROVIDERS: PCP Family Medicine; Visit Provider Nurse Practitioner | DX: K21.9 Gastro-esophageal reflux disease without esophagitis (principal); K30 Functional dyspepsia; K29.60 Other gastritis without bleeding; R74.01 Elevation of levels of liver transaminase levels; K85.10 Biliary acute pancreatitis without necrosis or infection | CPT/HCPCS: 99212 ==

== ENCOUNTER 2025-08-07 09:04 | Outpatient (AMB) | payer OTHER, SELFPAY ==
--- NOTE | 2025-08-07 09:22 | MHC.OFFVIS ---
Vital Signs 08/07/25 09:25 Height 5 ft 2 in Weight 179 lb BMI 32.7 BP 111/58 L Blood Pressure Location Lt brachial Position Sitting Pulse 56 Intake Visit Reasons: s/p gallbladder Intake Note: Patient is seen in office for post op assessment post laparoscopic cholecystectomy. Pt c/o: denies any concerns Type Bar And Segment Assembler Required: Yes Type Bar And Segment Assembler Language: Wildlife Biology Technician Services: Type Bar And Segment Assembler Present Type Bar And Segment Assembler Name: Shobha FELIZ Information Interpreted: non-clinical & clinical Manufacturing Millwright: Manufacturing Millwright Present Accompanied by: Self / Same As Patient Allergies No Known Allergies (No Known Allergies*) Allergy (Verified 08/07/25 09:23) HPI HPI s/p gallbladder: Details: In-house spanish medical interpreter Elodia used for this evaluation. Patient doing very well. Denies any abdominal pain. Has been tolerating diet well, states she has been adding more fruits, less processed foods. Bowel function at baseline. Has not been doing any heavy lifting. She has no concerns about her incision sites, does state that the umbilical incision can be mildly painful with ambulation. PFSH Medical History Abdominal bloating Abdominal cramping Transaminitis Postmenopausal bleeding Unsatisfactory cervical Papanicolaou smear Chronic idiopathic constipation Urinary frequency Diverticulitis Epigastric pain COVID-19 Well woman exam Bacterial vaginosis Uterine mass COVID-19 Well woman exam Smoker Bacterial vaginosis Hypertension Tubular adenoma of colon LLQ abdominal pain 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 Gastritis Surgical History (Updated 08/07/25 @ 10:06 by Vitaliy Manzo PA-C) S/P laparoscopic cholecystectomy Hx laparoscopic cholecystectomy Hx of hernia repair History of esophagogastroduodenoscopy (EGD) Hx of colonoscopy Family History Father Family history of prostate problems Colon cancer Mother Tumor Social History Household Members: None Housing: House Do you presently have visiting nurse or other home services: Yes (GRIP ASSEMBLER; 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, cooking) Alcohol intake: never Patient Tobacco Use Status: Never used Tobacco Tobacco use type: Cigarette Cigarettes Per Day: 2 Years Smoked: 20 e-Cigarette/Vaping Use: Never Used Second Hand Smoke Exposure: No service: No Current occupational status: disabled Female Reproductive History Menstrual Age of Menarche: 13 Physical Exam Vital Signs: Last Vital Signs Pulse 56 08/07/25 09:25 BP 111/58 L 08/07/25 09:25 BMI result Body Mass Index 32.7 Const General: comfortable and no acute distress Orientation/consciousness: patient oriented x3 Resp Effort & Inspection: normal respiratory effort and able to speak in complete sentences GI Other: Incision sites clean dry intact. Epigastric has a small keloid. No palpable fluid collection no surrounding erythema, no drainage. Nontender Inspection: No distended Palpation (GI): Soft to palpation, nontender and no guarding Neuro General: patient oriented x3 Assessment & Plan Assessment & Plan (1) Hx laparoscopic cholecystectomy: Comment: Dr Vega Code(s): Z90.49 - Acquired absence of other specified parts of digestive tract Category: Medical Plan 65-year-old female s/p laparoscopic cholecystectomy on 07/18/2025 presenting to the office for routine follow-up. Overall patient doing very well. Not experiencing any pain. Diet and bowel function are at baseline. She is actually making changes to her diet including increasing fruit and decreasing processed foods. On exam her abdomen is soft and benign the incisions appear to be healing well there is a small keloid at the epigastric site that I expect to improve with time. Otherwise no concern for infection. We will continue with activity restrictions until 08/18/2025. Patient expressed understanding of this. Also recommended that she does not use creams or submerge the incisions until this time. No longer requiring routine follow up. She can follow up as needed with any concerns in the future Coding Level of Care Code Global (96637) Diagnoses Hx laparoscopic cholecystectomy Z90.49
[2025-08-07 09:25] VITALS: BP 111/58; PULSE 56; BMI 32.7
--- OUTSIDE RECORDS SUMMARY | 2025-08-07 10:37 | XMS_ITS | Encounter Summary ---
Author Organization [employer] Address [address] [facility] 7t [place] [address] Care Team Providers Care Governor Assembler Hydraulic Name Role Phone Libra Barone MD Primary Care Provider [phone]- [phone] Malu Medina PharmD Unavailable Tamie Vega OD Unavailable [phone] February Unavailable Reason for Visit * Reason Comments Med Refill Encounter Details Date Type Department Care Team ([facility] st Contact Info) Description 08/02/2025 Refill [facility] MEDICINE [address] [place], [place] [phone] Libra Barone MD [address] [place], [place] [phone] Hyperglycemia, unspecified; Diabetes mellitus without complication (CMS/HCC) Social History Tobacco Use Types Packs/Day Years [...] Description 08/09/2025 9:00 AM EDT Office Visit [facility] MEDICINE [address] [place] [address] Libra Barone MD [address] [place] [address] documented as of this encounter Goals Goal Patient Goal Type Associated Problems Recent Progress Patient-Stated? Author Blood Pressure < 140/90 Blood Pressure 118/76(2024 3:15 PM EDT) No Jass-Malu Nash, PharmD Hemoglobin A1c < 7 Result Component 7.2( 8:51 AM EDT) No Jass-GambMalu murillo, PharmD documented as of this encounter Visit Diagnoses Diagnosis Hyperglycemia, unspecified Diabetes mellitus without complication (CMS/HCC) Type II or unspecified type diabetes mellitus without mention of complication, not stated as uncontrolled documented in this encounter Additional Health Concerns Assessment Noted Time PHQ-9 Depression Total Score: 0 04/20/20 24 3:44 PM EDT documented as of this encounter Care Teams Governor Assembler Hydraulic Relationship Specialty Start Date End Date Libra Barone MD [address] [place] [address] PCP - General Family Medicine 11/23/18 Malu Medina, Becky [address] [place] [address] Pharmacist Internal Medicine 05/09/24 Tamie Vega OD [address] [place] [address] Optometry 02/16/25 Ming February [address] [place] [address] 3rd [place] [address] Gastroenterology 04/20/25 documented as of this encounter
--- OUTSIDE RECORDS SUMMARY | 2025-08-07 10:37 | XMS_ITS | Encounter Summary ---
Author Organization [employer] Address [address] [facility] 7t [place] [address] Care Team Providers Care Chief Compressor Station Engineer Name Role Phone Libra Barone MD Primary Care Provider [phone]- [phone] Malu Medina PharmD Unavailable Tamie eVga OD Unavailable [phone] February Unavailable Reason for Visit * Reason Onset Date Comments Pharmacy [facility] 08/19/2024 Encounter Details Date Type Department Care Team ([facility] Contact Info) Description 08/19/[address] [facility] MEDICINE [address] [place], [place] [phone] Libra Barone MD [address] [place], [place] [phone] Pharmacy [facility] Social History Tobacco Use Types [...] [facility] [address] [place] [address] Libra Barone MD [address] [place] [address] documented as of this encounter Goals Goal [...] as of this encounter Care Teams Chief Compressor Station Engineer Relationship Specialty Start Date End Date Libra Barone MD [address] [place] [address] PCP - General Family Medicine 11/23/18 Malu Medina, Becky [address] [place] [address] Pharmacist Internal Medicine 05/09/24 Tamie Vega OD [address] [place] [address] Optometry 02/16/[address] 3rd [place] [address] Gastroenterology 04/20/25 documented as of this encounter
--- OUTSIDE RECORDS SUMMARY | 2025-08-07 10:37 | XMS_ITS | Encounter Summary ---
Author Organization [employer] Address [address] [facility] 7t [place] [address] Care Team Providers Care Pari Mutuel Ticket Cashier Name Role Phone Libra Barone MD Primary Care Provider [phone]- [phone] Malu Medina PharmD Unavailable [phone] Tamie Vega OD Unavailable February Unavailable Encounter Details Date Type Department Care Team (Latest Contact Info) Description 03/25/2021 Abstract [facility] CONVERSIONS Dental, Provider, DDS Social [...] Description 08/09/2025 9:00 AM EDT Office Visit [facility] MEDICINE [address] [place] [address] Libra Barone MD [address] [place] [address] documented as of this encounter Visit Diagnoses Not on filedocumented in this encounter Care Teams Pari Mutuel Ticket Cashier Relationship Specialty Start Date End Date Libra Barone MD [address] [place], [place] [phone] PCP - General Family Medicine 11/23/18 Malu Medina, LisaD [address] [place] [address] Pharmacist Internal Medicine 05/09/24 Tamie Vega OD [address] [place] [address] Optometry 02/16/[address] [place] [address] 3rd [place] [address] Gastroenterology 04/20/25 documented as of this encounter
--- OUTSIDE RECORDS SUMMARY | 2025-08-07 10:37 | XMS_ITS | Encounter Summary ---
Author Organization [employer] Address [address] [facility] 7t [place] [address] Care Team Providers Care Table Games Supervisor Name Role Phone Libra Barone MD Primary Care Provider [phone]- [phone] Malu Medina PharmD Unavailable Tamie Vega OD Unavailable February Unavailable Reason for Visit * Reason Onset Date Comments Appointment Request 08/22/2024 Encounter Details Date Type Department Care Team ([facility] Contact Info) Description 08/22/2024 Telephone [facility] MEDICINE [address] [place], [place] [phone] Libra Barone MD [address] [place], [place] [phone] Appointment Request Social History Tobacco Use Types [...] Description 08/09/2025 9:00 AM EDT Office Visit [facility] MEDICINE [address] [place] [address] Libra Barone MD [address] [place] [address] documented as of this encounter Goals Goal [...] documented as of this encounter Care Teams Table Games Supervisor Relationship Specialty Start Date End Date Libra Barone MD [address] [place] [address] PCP - General Family Medicine 11/23/18 Malu Medina, Becky [address] [place], [place] [phone] Pharmacist Internal Medicine 05/09/24 Tamie Vega OD [address] [place] [address] Optometry 02/16/25February [address] [place] [address] 3rd [place] [address] Gastroenterology 04/20/25 documented as of this encounter
--- OUTSIDE RECORDS SUMMARY | 2025-08-07 10:37 | XMS_ITS | Encounter Summary ---
Author Organization [employer] Address [address] [facility] 7t [place] [address] Care Team Providers Care Paint Grinder Name Role Phone Libra Barone MD Primary Care Provider [phone]- [phone] Malu Medina PharmD Unavailable Tamie Vega OD Unavailable February Unavailable Encounter Details Date Type Department Care Team (Latest Contact Info) Description 10/09/2022 Abstract [facility] CONVERSIONS Dental, Provider, DDS Social History [...] Description 08/09/2025 9:00 AM EDT Office Visit [facility] MEDICINE [address] [place] [address] Libra Barone MD [address] [place] [address] documented as of this encounter Visit Diagnoses Not on filedocumented in this encounter Care Teams Paint Grinder Relationship Specialty Start Date End Date Libra Barone MD [address] [place], [place] [phone] PCP - General Family Medicine 11/23/18 Malu Medina, LisaD [address] [place] [address] Pharmacist Internal Medicine 05/09/24 Tamie Vega OD [address] [place] [address] Optometry 02/16/[address] [place] [address] 3rd [place] [address] Gastroenterology 04/20/25 documented as of this encounter
--- OUTSIDE RECORDS SUMMARY | 2025-08-07 10:37 | XMS_ITS | Encounter Summary ---
Author Organization [employer] Address [address] [facility] 7t [place] [address] Care Team Providers Care Rivet Maker Name Role Phone Libar Barone MD Primary Care Provider [phone]- [phone] Malu Medina PharmD Unavailable Tamie Vega OD Unavailable February Unavailable Encounter Details Date Type Department Care Team (Latest Contact Info) Description 03/14/2019 Abstract [facility] CONVERSIONS Dental, Provider, DDS Social History [...] Description 08/09/2025 9:00 AM EDT Office Visit [facility] MEDICINE [address] [place] [address] Libra Barone MD [address] [place] [address] documented as of this encounter Visit Diagnoses Not on filedocumented in this encounter Care Teams Rivet Maker Relationship Specialty Start Date End Date Libra Barone MD [address] [place], [place] [phone] PCP - General Family Medicine 11/23/18 Malu Medina, LisaD [address] [place] [address] Pharmacist Internal Medicine 05/09/24 Tamie Vega OD [address] [place] [address] Optometry 02/16/[address] [place] [address] 3rd [place] [address] Gastroenterology 04/20/25 documented as of this encounter
--- OUTSIDE RECORDS SUMMARY | 2025-08-07 10:38 | XMS_ITS | Clinical Summary ---
Author Organization [employer] Address [address] [facility] [address] [place] [address] Care Team Providers Care Pressroom Foreman Name Role Phone Libra Barone MD Primary Care Provider [phone] aMlu Medina PharmD Unavailable [phone] Tamie Vega OD Unavailable [phone] February Unavailable Allergies Active Allergy Reactions [...] Once per day. 90 tablet 3 Active Ventolin HFA 108 (90 Base) MCG/ACT inhalerIndication s:Viral URI INHALE 2 PUFFS BY MOUTH EVERY 4 HOURS NEEDED FOR WHEEZING OR SHORTNESS OF BREATH 18 g 1 024 Active metFORMIN XR (Glucophage-XR) 500 MG [...] EVERY DAY FOR 2 DAYS 6 tablet 1 025 Active fluticasone furoate (Arnuity Ellipta) 100 MCG/ACT inhalerIndication s:Mild intermittent asthma without complication INHALE 1 PUFF BY MOUTH EVERY DAY AT THE SAME TIME. RINSE MOUTH AFTER USING. 30 each 025 Active Alcohol Swabs (Alcohol Prep) 70 % padsIndications:H igh blood sugar USE DIRECTED TWICE DAILY 100 each 025 Active hydrocortisone 2.5 % cream APPLY 1 APPLICATION RECTALLY TWICE DAILY NEEDED FOR HEMORRHOIDS 025 Active dicyclomine (Bentyl) 20 MG tablet 025 Active atenolol (Tenormin) 25 MG tabletIndications :Benign hypertension TAKE 1 TABLET BY MOUTH EVERY MORNING 90 tablet 3 025 Active FREESTYLE LITE test stripIndications: Hyperglycemia, unspecified,Diabe nathaly mellitus without complication (CMS/HCC) USE DIRECTED TO TEST BLOOD SUGAR TWICE DAILY 100 strip 11 025 Active TRUEplus Lancets 33G miscIndications:H yperglycemia, unspecified,Diabe nathaly mellitus without complication (CMS/HCC) USE DIRECTED TO TEST BLOOD SUGAR TWICE DAILY 100 each 11 025 Active atenolol (Tenormin) 25 MG tabletIndications :Benign hypertension Take 1 tablet (25 mg) by mouth in the morning. 90 tablet 3 024 2024 Discontinued TRUEplus Lancets 33G miscIndications:H yperglycemia, unspecified,Diabe nathaly mellitus without complication (CMS/HCC) TEST BLOOD SUGAR TWICE DAILY 100 each 11 024 2024 Discontinued FREESTYLE LITE test stripIndications: Hyperglycemia, unspecified,Diabe nathaly mellitus without complication (CMS/HCC) TEST BLOOD SUGAR TWICE DAILY 100 strip 11 024 2024 Discontinued Active Problems Patient Care Coordination No te Formatting of this note migh t be different from the original. Enrolled in [facility] DM clinic with Malu Medina, PharmD, [facility] Problem Noted Date Diagnosed Date Right upper [...] loss 06/22/2024 Overview (06/22/2024): -Abnormal audiogram at [facility] 05/2024 -ENT referral placed 06/22/24 Assessment & Plan (04/19/2025 2:34 PM EDT): -Abnormal audiogram at [facility] 05/2024 -ENT referral placed 06/22/24 History of postmenopausal bleeding 06/22/2024 Overview (04/19/2025): Seen by Dr. Alonso at [facility] 34/48. -co testing done, recommended ultrasound to measure [...] 1.7-2.7 cm. Recommended to Gyne Onc consult Desulphurizer Operator Onc referral for a consult placed by Dr. Alonso 09/08/24 Seen by pharmacist per diem 09/21/24 MRI recommended and possible surery in the future. Follow up after MRI. (Desulphurizer Operator noted does not have location of signature of provider) -Saw TRANSPORT MANAGER at [facility] 09/21 for intake and a Televist 10/10/24. Per note by Dr. Rosanna Lowe who noted size and growth is stable dating back to 2020, recommending annual pelvic US. Assessment & Plan (04/19/2025 2:45 PM EDT): Seen by Dr. Alonso at [facility] 730/. -co testing done, recommended ultrasound [...] 1.7-2.7 cm. Recommended to Gyne Onc consult Desulphurizer Operator Onc referral for a consult placed by Dr. Alonso 09/08/24 Seen by pharmacist per diem 09/21/24 MRI recommended and possible surery in the future. Follow up after MRI. (Desulphurizer Operator noted does not have location of signature of provider) -Saw TRANSPORT MANAGER at [facility] 09/21 for intake and a Televist [...] due after 04/19/26 -eye care facilitated by [facility] -dental home is [facility] -health care proxy given and filed 04/19/25 Assessment & Plan (04/19/2025 2:32 PM EDT): -next comprehensive annual evaluation due after 04/19/26 -eye care facilitated by [facility] -dental home is [facility] -health care proxy given and [...] (04/19/2025): -Hx pap with Dr. Alonso 02/2021 [place], HPV positive on 01/2021 next due in 1 year -Repeat PAP 06/04/2022 [place]IL[place], HRHPV. Next due 06/04/2027 Assessment & Plan (08/19/2023 2:56 PM EDT): -Hx pap with Dr. Alonso 02/2021 [place], HPV positive on 01/2021 next due in 1 yea Assessment & Plan (05/27/2023 3:21 PM EDT): -Hx pap with Dr. Alonso 02/2021 [place], [...] Metformin ER 500mg once daily started by [facility] 09/28/24, increased to Metformin ER 500mg twice [...] Metformin ER 500mg once daily started by [facility] 09/28/24, increased to Metformin ER 500mg twice [...] 06/22/2024 Candidiasis of vagina 09/03/20122023 Postmenopausal bleeding 09/03/2012/06/2024 GERD (gastroesophageal reflux disease) 05/14/2012 05/19/2025 Encounters Date Type Department Care Team Description 08/02/2025 Refill [facility] [address] [place] [address] Libra Barone MD Hyperglycemia, unspecified; Diabetes mellitus without complication ([facility]) 07/28/2025 Orders Only [facility] External Provider, [facility] 07/28/2025 Telephone [facility] [address] [place] [address] Libra Barone MD FYI 07/27/2025 Orders Only GENERIC EXTERNAL DATA DEPARTMENT Provider, Generic External Data 07/22/2025 Orders Only [facility] External Provider, [facility] 07/21/2025 Orders Only GENERIC EXTERNAL DATA DEPARTMENT Provider, Generic External Data 07/20/2025 Patient Outreach [facility] [address] [place] [address] Libra Barone MD Transition Of Care (Tcm) (HDF scheduled. ) 07/20/2025 Telephone [facility] [address] [place] [address] Libra Barone MD Medication Question 07/18/2025 Orders Only GENERIC EXTERNAL DATA DEPARTMENT Provider, Generic External Data Abdominal pain, unspecified abdominal location (Primary Dx) 07/13/2025 Refill [facility] [address] [place] [address] Malu Medina, PharmD Benign hypertension 06/26/2025 Orders Only [facility] [address] [place] [address] Libra Barone MD 06/23/2025 Telephone [facility] [address] [place] [address] [phone] Libra Barone MD 05/30/2025 Refill [facility] [address] [place] [address] Libra Barone MD Mild intermittent asthma without complication; High blood sugar 05/22/2025 Travel 05/18/2025 Orders Only [facility] [address] [place] [address] Sue Coats MD 05/09/2025 Telephone [facility] [address] [place] [address] Libra Barone MD Med Refill 05/08/2025 Refill [facility] [address] [place], [place] [phone] Libra Barone MD Oral herpes simplex infection from Last [...] Visit [facility] [address] [place], [place] [phone] Libra Barone MD [address] [place], [place] [phone] Health Maintenance Due Date Last Done Comments [...] Additional history exists Eye Exam 02/28/2027 02/28/2025, 06/2025, 02/28/2025, Additional history exists Colonoscopy 12/01/2027 [...] Blood Pressure 118/76(2024 3:15 PM EDT) No Jass-GambMalu murillo PharmD Hemoglobin A1c < 7 Result Component 7.2( 8:51 AM EDT) No Jass-Gambl Malu aguilar PharmD Procedures Procedure Name Priority Date/Time Associated [...] PM EDT Narrative 07/28/2025 2:48 PM EDT [place] [address] Fluoroscopy Report Signed Patient: Sridevi Pruitt I MR#: [id number] 2336 : 1960 Acct:[id number] Age/Sex: 65 / F ADM Date: 07/28/25 Loc: HO.S3 354-[address]: Dex Silva MD Ordering Physician: Arya Gutierrez MD Date of Service: 07/28/25 Procedure(s): FL guidance in OR Accession Number(s): [id number] cc: Libra Barone MD; Arya Gutierrez MD [...] 07/28/25 1445 DD/ 1353 TD/TT: 07/28/25 1424 Barrel Roller: Procedure Note Donotuseinterpreter, Image - 07/28/2025 [place] [address] Fluoroscopy Report Signed Patient: Sridevi Pruitt IMR#: [id number] 2336 : 9Acct:[id number] Age/Sex: 65 / FADM Date: 07/28/25 Loc: HO.S3 354-[address]: Dex Silva MD Ordering Physician: Arya Gutierrez MD Date of Service: 07/28/25 Procedure(s): FL guidance in OR Accession Number(s): [id number] cc: Libra Barone MD; Arya Gutierrez MD [...] 07/28/25 1445 DD/ 1353 TD/TT: 07/28/25 1424 Barrel Roller: [facility] External Provider IMG IR PROCEDURES Final Result * CT Abdomen Pelvis w/ Contrast (07/28/2025 4:28 AM EDT) Only the most recent of2 resultswithin the time period is included. Anatomical Region Laterality Modality Body, Pelvis, Abdomen Computed T omography 07/28/2025 4:28 AM EDT Narrative 07/28/2025 4:30 AM EDT [place] [address] CT Scan Report Signed Patient: Sridevi Pruitt I MR#: [id number] 2336 : 1960 Acct:[id number] Age/Sex: 65 / F ADM Date: 07/27/25 Loc: .ED Attending Dr: Ordering Physician: Lester Santos Date of Service: 07/28/25 Procedure(s): CT abdomen pelvis w IV con Accession Number(s): [id number] cc: Libra Barone MD; Lester Santos Report Number: [id number]: Total DLP = 598.00 mGy-cm Reason for [...] in OV> 07/28/25428 DD/ 7 TD/TT: 07/28/25427 Barrel Roller: Procedure Note Donotuseinterpreter, Image - 07/28/[address] [place] [address] [address] Scan Report Signed Patient: Sridevi Pruitt IMR#: [id number] 2336 : 9Acct:[id number] Age/Sex: 65 / FADM Date: 07/27/25 Loc: HO.ED Attending Dr: Ordering Physician: Lester Santos Date of Service: 07/28/25 Procedure(s): CT abdomen pelvis w IV con Accession Number(s): [id number] cc: Libra Barone MD; Lester Santos Report Number: [id number]: Total DLP = 598.00 mGy-cm Reason for [...] in OV> 07/28/25428 DD/ 7 TD/TT: 07/28/25427 Barrel Roller: us [facility] External Provider IMG CT PROCEDURES Edited Result - Final * (ABNORMAL) Urinalysis, Complete, with Reflex to Culture (07/27/2025 11:13 PM EDT) Only the most recent of2 resultswithin the time period is included. Color Urine Dark Yellow [facility] Appearance Urine Clear [facility] PH 7.0 5.0 - 9.0 [facility] Glucose Urine UA Negative Negative mg/dL [facility] Urine Blood Negative Negative [facility] Specific [place] - Urine 1.010 1.005 - 1.025 [facility] Urine Protein Negative Neg-Trace mg/dL [facility] Urine Ketones Negative Negative mg/dL [facility] Nitrite Urine Negative Negative [facility] Leukocyte Esterase Urine Small (1+)(A) Negative [facility] RBC Urine 0-2 0 - 2 /HPF [facility] Urine WBC 6-10(A) 0 - 5 /HPF [facility] Urine Squamous Epithelial Cell 6-10 0 - 2 /HPF [facility] Urine Bacteria None Seen None Seen [facility] Hyaline Casts, Urine 0-2 0 - 2 /LPF [facility] 07/27/2025 11:1 3 PM EDT 07/27/2025 11:17 PM EDT Narrative [facility] - 07/27/2025 11:46 PM EDT [id number], Clean Catch us Generic External Data Provider LAB URINE ORDERAB LES Final Result [facility] [address] [place], [place] [phone] * (ABNORMAL) CBC auto differential (07/27/2025 8:47 PM EDT) Only the most recent of3 resultswithin the time period is included. White Blood Count 9.0 4.8 - 10.8 X10*3/uL [facility] Red Blood Count 4.60 4.20 - 5.50 X10*6/uL [facility] Hemoglobin 13.7 12.0 - 16.0 g/dl [facility] Hematocrit 40.7 37.0 - 47.0 % [facility] Mean Corpuscular Volume 88.5 80.0 - 98.0 fL [facility] Mean Corpuscular Hemoglobin 29.8 27.0 - 33.0 pg [facility] Mean Corpuscular HGB Conc 33.7 31.0 - 35.0 g/dl [facility] Red Cell Distribution Width 15.3 11.0 - 16.0 % [facility] Platelet Count 328 160 - 400 X10*3/uL [facility] Mean Platelet Volume 10.6 9.4 - 12.3 fL [facility] Neutrophils Percent Auto 62.7 45 - 73 % [facility] Imm Gran Pct Auto 0.7(H) 0.0 - 0.4 % [facility] Lymphocytes Percent Auto 27.3 20 - 40 % [facility] Monocytes Percent Auto 6.6 2 - 11 % [facility] Eosinophils Percent Auto 2.1 0 - 4 % [facility] Basophils Percent Auto 0.6 0 - 2 % [facility] NRBC Pct Auto 0.0 0.0 - 0.2 /100WBC [facility] Neutrophils Absolute Auto 5.7 2.0 - 8.3 x10*3/uL [facility] Imm Gran Abs Auto 0.06(H) 0.00 - 0.03 X10*3/uL [facility] Lymphocytes Absolute Auto 2.5 1.2 - 4.9 X10*3/uL [facility] Monocytes Absolute Auto 0.6 0.1 - 1.2 X10*3/uL [facility] Eosinophils Absolute Auto 0.2 0.0 - 0.4 X10*3/uL [facility] Basophils Absolute Auto 0.1 0.0 - 0.2 X10*3/uL [facility] NRBC Abs Auto 0.000 0.0 - 0.012 X10*3/uL [facility] 07/27/2025 8:47 PM EDT 07/27/2025 8:50 PM EDT Generic External Data Provider LAB BLOOD ORDERAB LES Final Result Performing Organization Address [facility] Co de Phone Number [facility] [address] [place] [phone] * (ABNORMAL) Lipase (07/27/2025 8:47 PM EDT) Only the most recent of3 resultswithin the time period is included. Lipase 397(H) 8 - 78 U/L [facility] 07/27/2025 8:47 PM EDT 07/27/2025 8:50 PM EDT Generic External Data Provider LAB BLOOD ORDERAB LES Final Result Performing Organization Address [facility] Co de Phone Number [facility] [address] [place] [phone] * (ABNORMAL) Hepatic Function Panel (07/27/2025 8:47 PM EDT) Only the most recent of2 resultswithin the time period is included. Bilirubin, Total 2.1(H) 0.0 - 1.0 mg/dL [facility] Bilirubin, Direct 1.6(H) 0.0 - 0.5 mg/dL [facility] Aspartate Amino Transferase 331(H) 5 - 31 U/L [facility] Alanine Aminotransferase 324(H) 0 - 31 U/L [facility] Total Protein 7.0 6.5 - 8.0 g/dL [facility] Albumin Level 4.1 3.5 - 5.0 g/dL [facility] Alkaline Phosphatase 733(H) 39 - 117 U/L [facility] 07/27/2025 8:47 PM EDT 07/27/2025 8:50 PM EDT us Generic External Data Provider LAB BLOOD ORDERAB LES Final Result [facility] [address] [place] [phone] * (ABNORMAL) Basic Metabolic Panel (07/27/2025 8:47 PM EDT) Only the most recent of2 resultswithin the time period is included. Sodium 140 135 - 145 mmol/L [facility] Potassium 4.2 3.3 - 5.1 mmol/L [facility] Chloride 103 96 - 108 mmol/L [facility] Carbon Dioxide 29 22 - 29 mmol/L [facility] Anion Gap 12 12 - 20 [facility] Urea Nitrogen (BUN) 13 9 - 16 mg/dL [facility] Creatinine, Serum 0.75 0.5 - 1.4 mg/dL [facility] Creatinine Clr Calc Pharmacy 72.4 [facility] Comment:Provided height and weight: 157.48 cm,80.4 kg.eGFR (calculated from the MDRD study equation) and eCrCl(calculated from the Cockcroft-Gault equation) are based ondifferent parameters and may not yield comparable results.If eCrCl result is absurd, please check patient'sheight/weight. Estimated Glomerular Filt Rate >60 [facility] Comment:Chronic Kidney Disea se: Estimated GFR < 60 mL/min/1.76h8Vxsdsb Kidney Disease: Estimated GFR < 15 mL/min/1.73m2 Glucose 151(H) 60 - 115 mg/dL [facility] Calcium 9.3 8.4 - 10.2 mg/dL [facility] 07/27/2025 8:47 PM EDT 07/27/2025 8:50 PM EDT us Generic External Data Provider LAB BLOOD ORDERAB LES Final Result Performing Organization Address City/State/[facility] Co de Phone Number [facility] [address] [place] [phone] * MR MRCP (07/22/2025 10:17 AM EDT) Anatomical Region Laterality Modality Lower Extremities Left Magnetic Reson ance 07/22/2025 10:1 7 AM EDT Narrative 07/22/2025 10:19 AM EDT [address] [address] Magnetic Resonance Report Signed Patient: Sridevi Pruitt I MR#: [id number] 2336 : 1960 Acct:[id number] Age/Sex: 65 / F ADM Date: 07/22/25 Loc: .S3 346-[address]: Savanah Vega MD Ordering Physician: Savanah Vega MD Date of Service: 07/22/25 Procedure(s): MR MRCP Accession Number(s): [id number] cc: Libra Barone MD; Savanah Vega MD [...] 07/22/25 1018 DD/ 1017 TD/TT: 07/22/25 1017 Barrel Roller: Procedure Note Donotuseinterpreter, Image - 07/22/2025 [place] [address] Magnetic Resonance Report Signed Patient: Sridevi Pruitt IMR#: [id number] 2336 : 9Acct:[id number] Age/Sex: 65 / FADM Date: 07/22/25 [facility]: Savanah Vega MD Ordering Physician: Savanah Vega MD Date of Service: 07/22/25 Procedure(s): MR MRCP Accession Number(s): [id number] cc: Libra Barone MD; Savanah Vega MD [...] 07/22/25 1018 DD/ 1017 TD/TT: 07/22/25 1017 Barrel Roller: us [facility] External Provider IMG MRI PROCEDURES Final Result * US Abdomen Limited (07/21/2025 11:46 PM EDT) Only the most recent of2 resultswithin the time period is included. Anatomical Region Laterality Modality Abdomen Ultrasound 07/21/2025 11:4 6 PM EDT Narrative 07/21/2025 11:48 PM EDT [address] [address] Ultrasound Report Signed Patient: Sridevi Pruitt I MR#: [id number] 2336 : 1960 Acct:[id number] Age/Sex: 65 / F ADM Date: 07/21/25 Loc: HO.ED Attending Dr: Ordering Physician: Noel Ch MD Date of Service: 07/21/25 Procedure(s): US abdomen limited Accession Number(s): [id number] cc: Lirba Barone MD; Noel Ch MD CLINICAL HISTORY: [...] in OV> 07/21/252346 DD/ 45 TD/TT: 07/21/252345 Barrel Roller: Procedure Note Silvinater, Image - 07/21/2025 [place] [address] Ultrasound Report Signed Patient: Sridevi Pruitt IMR#: [id number] 2336 : 9Acct:[id number] Age/Sex: 65 / FADM Date: 07/21/25 Loc: HO.ED Attending Dr: Ordering Physician: Noel Ch MD Date of Service: 07/21/25 Procedure(s): US abdomen limited Accession Number(s): [id number] cc: Libra Barone MD; Noel Ch MD [...] in OV> 07/21/252346 DD/ 45 TD/TT: 07/21/252345 Barrel Roller: us [facility] External Provider IMG US PROCEDURES Edited Result - Final * Partial Thromboplastin Time, Activated (APTT) (07/21/2025 9:11 PM EDT) Partial Thromboplastin Time 28.8 26.7 - 34.1 SEC [facility] 07/21/2025 9:11 PM EDT 07/21/2025 9:19 PM EDT Generic External Data Provider LAB BLOOD ORDERAB LES Final Result Performing Organization Address [facility] Co de Phone Number [facility] [address] [place] [phone] * Prothrombin Time-INR (07/21/2025 9:11 PM EDT) Prothrombin Time 11.9 10.9 - 12.4 SEC [facility] INTERNATIONAL NORM RATIO 1.0 0.9 - 1.1 [facility] Comment:INTERNATIONAL NORMAL IZED RATIO (INR) [...] 9:11 PM EDT 07/21/2025 9:19 PM EDT [employer] External Data Provider LAB BLOOD ORDERAB LES Final Result Performing Organization Address [facility] de Phone Number [facility] [address] [place] [phone] * XR KUB and Upright 2 Views (07/21/2025 8:11 PM EDT) Anatomical Region Laterality Modality Radiographic Courtney ging 07/21/2025 8:11 PM EDT Narrative 07/21/2025 8:13 PM EDT [place] [address] XRay Report Signed Patient: Sridevi Pruitt I MR#: [id number] 2336 : 1960 Acct:[id number] Age/Sex: 65 / F ADM Date: 07/21/25 Loc: HO.ED Attending Dr: Ordering Physician: Lester Santos Date of Service: 07/21/25 Procedure(s): XR KUB Accession Number(s): [id number] cc: Libra Barone MD; Lester Santos CLINICAL [...] in OV> 07/21/252011 DD/ 10 TD/TT: 07/21/252010 Barrel Roller: Procedure Note Donotuseinterpreter, Image - 07/21/[address] [address] XRay Report Signed Patient: Sridevi Pruitt IMR#: [id number] 2336 : 1960cct:[id number] Age/Sex: 65 / FADM Date: 07/21/25 Loc: .ED Attending Dr: Ordering Physician: Lester Santos Date of Service: 07/21/25 Procedure(s): XR KUB Accession Number(s): [id number] cc: Libra Barone MD; Lester Santos CLINICAL [...] in OV> 07/21/252011 DD/ 10 TD/TT: 07/21/252010 Barrel Roller: [facility] External Provider IMG XR PROCEDURES Final Result * (ABNORMAL) Comprehensive Metabolic Panel (07/21/2025 7:40 PM EDT) Sodium 142 135 - 145 mmol/L [facility] Potassium 4.2 3.3 - 5.1 mmol/L [facility] Chloride 104 96 - 108 mmol/L [facility] Carbon Dioxide 27 22 - 29 mmol/L [facility] Anion Gap 15 12 - 20 [facility] Urea Nitrogen (BUN) 12 9 - 16 mg/dL [facility] Creatinine, Serum 0.66 0.5 - 1.4 mg/dL [facility] Creatinine Clr Calc Pharmacy 84.2 [facility] Comment:Provided height and weight: 157.48 cm,83.915 kg.eGFR (calculated from the MDRD study equation) and eCrCl(calculated from the Cockcroft-Gault equation) are based ondifferent parameters and may not yield comparable results.If eCrCl result is absurd, please check patient'sheight/weight. Estimated Glomerular Filt Rate >60 [facility] Comment:Chronic Kidney Disea se: Estimated GFR < 60 mL/min/1.27w9Tvyikn Kidney Disease: Estimated GFR < 15 mL/min/1.73m2 Glucose 166(H) 60 - 115 mg/dL [facility] Calcium 9.6 8.4 - 10.2 mg/dL [facility] Bilirubin, Total 2.2(H) 0.0 - 1.0 mg/dL [facility] Aspartate Amino Transferase 1,210(H) 5 - 31 U/L [facility] Alanine Aminotransferase 892(H) 0 - 31 U/L [facility] Total Protein 7.1 6.5 - 8.0 g/dL [facility] Albumin Level 4.2 3.5 - 5.0 g/dL [facility] Alkaline Phosphatase 377(H) 39 - 117 U/L [facility] 07/21/2025 7:40 PM EDT 07/21/2025 7:43 PM EDT us Generic External Data Provider LAB BLOOD ORDERAB LES Final Result Performing Organization Address [facility]/ZIP Co de Phone Number [facility] [address] [place] [phone] * (ABNORMAL) Urinalysis w/reflex microscopic (07/18/2025 10:05 AM EDT) Color Urine Yellow [facility] Appearance Urine Clear [facility] PH 5.5 5.0 - 9.0 [facility] Glucose Urine UA Negative Negative mg/dL [facility] Urine Blood Trace(A) Negative [facility] Specific [place] - Urine 1.025 1.005 - 1.025 [facility] Urine Protein Negative Neg-Trace mg/dL [facility] Urine Ketones Negative Negative mg/dL [facility] Nitrite Urine Negative Negative [facility] Leukocyte Esterase Urine Negative Negative [facility] 07/18/2025 10:0 5 AM EDT 07/18/2025 10:08 AM EDT Narrative [facility] - 07/18/2025 10:14 AM EDT Urine, Clean Catch us Generic External Data Provider LAB URINE ORDERAB LES Final Result Performing Organization Address [facility]/ZIP Co de Phone Number [facility] [address] [place] [phone] * High Sensitivity Troponin I (07/18/2025 7:55 AM EDT) TROPONIN I HIGH SENSITIVITY <2.7 <3.5 - 17.0 ng/L [facility] Comment:The Jacinto high sens itivity Troponin-I results should beused in conjunction with other diagnostic information suchas ECG, clinical observations and information, and patientsymptoms to aid in the diagnosis of RI. 07/18/2025 7:55 AM EDT 07/18/2025 8:42 AM EDT us Generic External Data Provider LAB BLOOD ORDERAB LES Final Result Performing Organization Address City/State/[facility] Co de Phone Number [facility] [address] [place] [address] [phone] * US Extremity Non Vascular Left Limited (06/26/2025 1:09 PM EDT) Anatomical Region Laterality Modality Ultrasound 06/26/2025 1:09 PM EDT Narrative 06/26/2025 1:30 PM EDT [place] [address] Ultrasound Report Signed Patient: Sridevi Pruitt I MR#: [id number] 2336 : 1960 Acct:[id number] Age/Sex: 65 / F ADM Date: 06/26/25 Loc: .US Attending Dr: Libra Barone MD Ordering Physician: Libra Barone MD Date of Service: 06/26/25 Procedure(s): US Extremity Nonvas Limited LT Accession Number(s): [id number] cc: Libra Barone MD Exam:US Extremity Nonvas [...] 06/26/25 1327 DD/ 1309 TD/TT: 06/26/25 1312 Barrel Roller: Procedure Note Donotuseinterpreter, Image - 06/26/[address] [address] Ultrasound Report Signed Patient: Sridevi Pruitt IMR#: [id number] : 9Acct:[id number] Age/Sex: 65 / FADM Date: 06/26/25 Loc: HO.US Attending Dr: Libra Barone MD Ordering Physician: Libra Barone MD Date of Service: 06/26/25 Procedure(s): US Extremity Nonvas Limited LT Accession Number(s): [id number] cc: Libra Barone MD Exam:US Extremity Nonvas [...] 06/26/25 1327 DD/ 1309 TD/TT: 06/26/25 1312 Barrel Roller: us Libra Barone MD IMG US PROCEDURES Final Re sult * BI Mammogram Diagnostic Tomosynthesis Bilateral (05/18/2025 1:30 PM EDT) Anatomical Region Laterality Modality Breast Bilateral Mammography 05/18/2025 1:30 PM EDT Narrative 05/18/2025 2:45 PM EDT [facility] [address] [place], [place] [address] Mammography Report Signed Patient: Sridevi Pruitt I MR#: [id number] 2336 : 1960 Acct:[id number] Age/Sex: 64 / F ADM Date: 05/18/25 Loc: HO.MAMMO Attending Dr: Sue Coats MD Ordering Physician: Sue Coats MD Results: 2Be nign Findings Date of Service: 05/18/25 Follow Up: 1 Year From [facility]a Mammogram Procedure(s): MM tomosynthesis diagnostic BI Accession Number(s): [id number] cc: Libra Barone MD; Sue Coats MD [...] clip from previous needle core biopsy. Left: [place] marker in the lower inner left breast [...] 05/18/25 1443 DD/ 1330 TD/TT: 05/18/25 1358 Barrel Roller: Procedure Note Donotuseinterpreter, Image - 05/18/2025 [facility] [address] [place] [address] Mammography Report Signed Patient: Sridevi Pruitt IMR#: [id number] : 9Acct:[id number] Age/Sex: 64 / FADM Date: 05/18/25 Loc: HO.MAMMO Attending Dr: Sue Coats MD Ordering Physician: Sue Coats MDResults: 2Be nign Findings Date of Service: 05/18/25Follow Up: 1 Year From Orig inal Mammogram Procedure(s): MM tomosynthesis diagnostic BI Accession Number(s): [id number] cc: Libra Barone MD; Sue Coats MD [...] clip from previous needle core biopsy. Left: [place] marker in the lower inner left breast [...] DO 05/18/2025 02:43 PM EDT RP Workstation: [facility] Dictated By: Donna Mooney DO Signed By: <Electronically signed by Donna Mooney DO in OV> 05/18/25 1443 DD/ 1330 TD/TT: 05/18/25 1358 Barrel Roller: us Sue Coats MD IMG BI PROCEDURES Final Result * BI US Breast Limited Left (05/18/2025 1:23 PM EDT) Anatomical Region Laterality Modality Breast Left Ultrasound 05/18/2025 1:23 PM EDT Narrative 05/18/2025 2:45 PM EDT [facility] [address] [place] [address] Ultrasound Report Signed Patient: Sridevi Pruitt I MR#: [id number] 2336 : 1960 Acct:[id number] Age/Sex: 64 / F ADM Date: 05/18/25 Loc: HO.MAMMO Attending Dr: Sue Coats MD Ordering Physician: Sue Coats MD Date of Service: 05/18/25 Procedure(s): US breast LT limited mamm only Accession Number(s): [id number] cc: Libra Barone MD; Sue Coats MD [...] clip from previous needle core biopsy. Left: [place] marker in the lower inner left breast [...] 05/18/25 1443 DD/ 1323 TD/TT: 05/18/25 1422 Barrel Roller: Procedure Note Donotuseinterpreter, Image - 05/18/2025 [facility] [address] [place] [address] Ultrasound Report Signed Patient: Sridevi Pruitt [facility]#: [id number] 2336 : 9Acct:[id number] Age/Sex: 64 / FADM Date: 05/18/25 Loc: HO.MAMMO Attending Dr: Sue Coats MD Ordering Physician: Sue Coats MD Date of Service: 05/18/25 Procedure(s): US breast LT limited mamm only Accession Number(s): [id number] cc: Libra Barone MD; Sue Coats MD [...] clip from previous needle core biopsy. Left: [place] marker in the lower inner left breast [...] 05/18/25 1443 DD/ 1323 TD/TT: 05/18/25 1422 Barrel Roller: us Sue Coats MD IMG US PROCEDURES Final Result * Albumin, Random Urine W/Creatinine (04/18/2025 8:51 AM EDT) Creatinine, Urine 214.51 mg/dL [facility] Microalbumin Urine 16.0 mg/L [facility] Microalbum Creatinine Ratio Ur 7.4 <30 ug/mg cr [facility] Comment:Albumin/Creatinine R atio Reference Ranges: Normal: < 30 ug/mg creatinine Microalbuminuria: 30 - 300 ug/mg creatinineClinical Albuminuria: > 300 ug/mg creatinine Urine 04/18/2025 8:51 AM EDT 04/18/2025 11:06 AM EDT Libra Barone MD LAB URINE ORDERABLES Final Result Performing Organization Address [facility]/ZIP Co de Phone Number [facility] [address] [place] [phone] * (ABNORMAL) Hemoglobin A1c (04/18/2025 8:51 AM EDT) Hemoglobin A1c 7.2(H) <6.0 % [facility] Comment:Hemoglobin A1C Refer ence Range Adults: 4.8 - 6.0 % Non diabetic: < 6.0 % Goal: < 7.0 %Additional Action Suggested: > 8.0 %Note: Hemoglobin A1c results are invalid for patients with abnormal amounts of HbF. Blood transfusions may impact the HbA1c concentration in the patient sample. Estimated Average Glucose 160 mg/dL [facility] Comment:eAG = Estimated ave rage glucose which is %A1C expressed asaverage glucose, using the formula of the I0C-GqzqnokOcugrdc Glucose study (ADAG), Diabetes Care, Vol.31,#8,Jun. 2007 Blood Venous blood specimen / Unknown 04/18/2025 8:51 AM EDT 04/18/2025 11:06 AM EDT Libra Barone MD LAB BLOOD ORDERABLES Final Result Performing Organization Address [facility] Co de Phone Number [facility] [address] [place] [address] [phone] * Lipid Panel, Standard (04/18/2025 8:51 AM EDT) Triglycerides 61 <150 mg/dL [facility] Comment:Desirable Triglyceri de: less than 150 mg/dLBorderline High Triglyceride 150-199 mg/dLHigh Triglyceride: 200-499 mg/dLVery High Triglyceride: greater than or equal to 5OO mg/dL Cholesterol 144 <200 mg/dL [facility] Comment:Desirable Cholestero l: less than 200 mg/dLBorderline High Cholesterol: 200-239 mg/dLHigh Cholesterol: greater than 239 mg/dL LDL Cholesterol Calculated 79 <100 mg/dL [facility] Comment:Desirable LDL: less than 100 mg/dLNear Optimal/Above Optimal LDL: 110- 129 mg/dLBorderline High LDL: 130-159 mg/dLHigh LDL: 160-189 mg/dLVery High LDL: greater than or equal to 190 mg/dL HDL Cholesterol 53 >40 mg/dL [facility] Comment:Desirable HDL: great er than 40 mg/dL Note: This HDL assay may give artificially low results in patients with liver disease. Blood Venous blood specimen / Unknown 04/18/2025 8:51 AM EDT 04/18/2025 11:06 AM EDT us Libra Barone MD LAB BLOOD ORDERABLES Final Result [facility] [address] [place] [phone] * ThinPrep Imaging Pap and HPV mRNA E6/E7 with Reflex to HPV 16,18/45 (06/21/2024 9:52 AM EDT) HPV 16 RNA MDP [facility] HPV 18/45 RNA [facility] HPV nRNA E6/E7 Not Detected Not Detected [facility] Comment:Methodology: Transcr iption-Mediated AmplificationThis assay detects E6/E7 viral messenger RNA (mRNA) from 14high-risk HPV types (16,18,31,33,35,39,45,51,52,56,58,59,66,68).Cervical sources are required for HPV testing.If a vaginal source from a patient who has had atotal hysterectomy with removal of cervix wassubmitted, please contact the testing laboratoryfor alternative testing options.For additional information, please refer tohttp://education.questdiagnostics.com/faq/WOF191i8(This link if provided for information/educational purposes only.)THIS TEST WAS PERFORMED AT:[facility] [address] [phone] KAHN MD SOURCE: SEE NOTE [facility] Comment:Cervix Report Status: [facility] Clinical Information: SEE NOTE [facility] Comment:ROUTINE LMP: SEE NOTE [facility] Comment:PM Prev. PAP: SEE NOTE [facility] Comment:06/05/22 Prev. BX: SEE NOTE [facility] Comment:NONE GIVEN Statement Of Adequacy: SEE NOTE [facility] Comment:SATISFACTORY FOR GHAZLA LUATION General Categorization: [facility] Interpretation/Result: SEE NOTE [facility] Comment:Cytology Results: Ne gative for intraepitheliallesion or malignancy.Atrophic pattern; predominantly parabasal cells Cytology Comment SEE NOTE [facility] Comment:This Pap test has be en evaluated with computerassisted technology. Used Car Manager: SEE NOTE [facility] Comment:BK,CT(ASCP)CT screen ing location: [address] Review Used Car Manager: [facility] Pathologist [facility] PAP Infection [facility] See Note SEE NOTE [facility] Comment:EXPLANATORY NOTE:The Pap is a screening test for cervical cancer. It isnot a diagnostic test and is subject to false negativeand false positive results. It is most reliable when asatisfactory sample, regularly obtained, is submittedwith relevant clinical findings and history, and whenthe Pap result is evaluated along with historic andcurrent clinical information. 06/21/2024 9:52 AM EDT 06/21/2024 2:35 PM EDT Narrative [facility] - 06/23/2024 12:57 PM EDT SEE SCANNED RESULTS IN EMRWas previous PAP abnormal? YesIf PAP abnormal, please specify: hpv +Clinical Information: RoutineCollection Date: 06/21/24LMP: postmenopausalDate of previous PAP 06/05/22Performed by: : Cervical Generic External Data Provider LAB PATHOLOGY ORD ERABLES Final Result Performing Organization Address [facility] Co de Phone Number [facility] [address] [place] [address] [phone] * Hepatitis Panel, General (07/22/2023 1:58 PM EDT) Hepatitis A IgM Nonreactive Nonreactive [facility] Comment:IgM antibodies to WOLF V not detected; does not exclude earlyacute or recovered HAV infection. ~Hepatitis B Surface Antibody REACTIVE Nonreactive [facility] Comment:REACTIVE: > 11.99 mI U/mL Hepatitis B Core Antibody Nonreactive Nonreactive [facility] Hepatitis C Antibody Nonreactive Nonreactive [facility] Comment:Antibodies to HCV no t detected; does not exclude early acuteHCV infection. Hepatitis B Surface Ag Negative Negative [facility] 07/22/2023 1:58 PM EDT 07/22/2023 1:59 PM EDT [facility] External Provider LAB BLO OD ORDERABLES Final Result Performing Organization Address [facility] Co de Phone Number [facility] [address] [place] [address] [phone] * Colonoscopy (12/01/2022 12:16 PM EST) Historical Provider HEALTH MAINTENANCE Final Result from Last 3 Months or Most Recently Relevant to Health Maintenance [place] [id number] [employer] SKILLED NURSING OPTIONS (O D-SNP) [facility] - [facility] Care Teams Pressroom Foreman Relationship Specialty Start Date End Date Dimmit, MD Libra [address] [place] [phone] PCP - General Family Medicine 11/23/18 Malu Medina, LisaD [address] [place] [address] Pharmacist Internal Medicine 05/09/24 Tamie Vega OD [address] [place] [address] Optometry 02/16/[address] [place] [address] 3[address] [place] [address] Gastroenterology 04/20/25
--- OUTSIDE RECORDS SUMMARY | 2025-08-07 10:38 | XMS_ITS | Encounter Summary ---
Author Organization [employer] Address [address] [facility] [address] [place] [address] Care Team Providers Care Television Production Assistant Name Role Phone Libra Barone MD Primary Care Provider [phone] Malu Medina PharmD Unavailable [phone] Tamie Vega OD Unavailable February Unavailable Reason for Visit * Reason Onset Date Comments Appointment Request 01/02/2025 Encounter Details Date Type Department Care Team ([facility] Contact Info) Description 01/02/2025 Telephone [facility] [address] [place], [place] [phone] Libra Barone MD [address] [place], [place] [phone] Appointment Request Social History Tobacco Use Types [...] 9:00 AM EDT Office Visit [facility] [address] [place] [address] Libra Barone MD [address] [place] [address] documented as of this encounter Goals Goal [...] documented as of this encounter Care Teams Television Production Assistant Relationship Specialty Start Date End Date Libra Barone MD [address] [place] [phone] PCP - General Family Medicine 11/23/18 Malu Medina, LisaD [address] [place] [phone] Pharmacist Internal Medicine 05/09/24 Tamie Vega OD [address] [place] [phone] Optometry 02/16/[address] [place] [address] 3rd [place] [address] Gastroenterology 04/20/25 documented as of this encounter
== END 2025-08-07 09:35 | disposition home or self-care (01) ==
LOC: HO.HGS 09:04
PROVIDERS: PCP Family Medicine
DX: Z90.49 Acquired absence of other specified parts of digestive tract (principal)
CPT/HCPCS: 99024

== ENCOUNTER → 2025-08-07 09:04 | Outpatient (BNVA) | payer OTHER, SELFPAY | PROVIDERS: PCP Family Medicine | DX: Z98.890 Other specified postprocedural states (principal); Z90.49 Acquired absence of other specified parts of digestive tract | CPT/HCPCS: 99212 ==

== ENCOUNTER 2025-08-09 09:28 | Outpatient (REF) | payer OTHER, SELFPAY ==
--- OUTSIDE RECORDS SUMMARY | 2025-08-09 09:00 | XMS_ITS | Encounter Summary ---
Author Organization [employer] Address [address] [facility] 7[address] [place] [address] Care Team Providers Care Blade Grader Operator Name Role Phone Libra Barone MD Primary Care Provider + [phone] Malu Medina PharmD Unavailable Tamie Vega OD Unavailable [phone] February Unavailable Reason for Visit * Reason Comments hdf Encounter Details Date Type Department Care Team (Latest Contact Info) Description 08/09/2025 9:00 AM EDT Office Visit [facility] [address], [place] [phone] Libra Barone MD [address], [place] [phone] Hx laparoscopic cholecystectomy (Primary Dx); Transaminitis; Benign hypertension; Diabetes mellitus without complication (CMS/HCC); Positive depression screening; Class 1 obesity due to excess calories with serious comorbidity and body mass index (BMI) of 33.0 to 33.9 in adult; Dietary counseling; Exercise counseling; Other specified health status; Depressive disorder; Irritable bowel syndrome, unspecified type Social History Tobacco Use Types Packs/Day Years Used Date Smoking Tobacco: Some Days Cigarettes Passive Smoke Exposure: Never Smokeless Tobacco: Never Alcohol Use Standard Drinks/Week Comments Never 0 (1 standard drink = 0.6 oz pur e alcohol) Depression Answer Date Recorded Patient Health Questionnaire-9 Score 6 08/09/2025 Patient Health Questionnaire-9 Score 6 08/09/2025 Last PHQ-9: Questionnaire Data Not on file 0 08/09/2025 Housing Stability Answer Date Recorded What is [...] Answer Date Recorded Patient Health Questionnaire-2 Score 2 08/09/2025 Internet Access Answer Date Recorded Internet Access [...] Sign Reading Time Taken Comments Blood Pressure 130/79 08/09/2025 9:09 AM EDT Pulse 52 08/09/2025 9:09 AM EDT Temperature 36.7 C (98.1 F) 08/09/2025 9:09 AM EDT Respiratory Rate 20 08/09/2025 9:09 AM EDT Oxygen Saturation 98% 08/09/2025 9:09 AM EDT Inhaled Oxygen Concentration - - Weight 82.3 kg (181 lb 6.4 oz) 08/09/2025 9:09 A M EDT Height 157.5 cm (5' 2 ) 08/09/2025 9:09 AM EDT Body Mass Index 33.18 08/09/2025 9:09 AM EDT documented in this encounter Functional Status * Over the past 2 weeks, how often have you been bothered by any of the following problems? Question Answer Date of Assessment Author Patient Health Questionnaire -2 Score 2 08/09/2025 9:10 AM KENDALLT Anita Walter MA * Little interest or pleasure in doing things Answer Date of Assessment Author Several days 08/09/2025 9:10 AM EDT Anita Walter MA * Feeling down, depressed, or hopeless Answer Date of Assessment Author Several days 08/09/2025 9:10 AM EDT Anita Walter MA * Trouble falling or staying asleep, or sleeping too much Answer Date of Assessment Author Several days 08/09/2025 9:10 AM EDT Anita Walter MA * Feeling tired or having little energy Answer Date of Assessment Author More than half the days 08/09/2025 9:10 AM EDT Anita Hodge MA * Poor appetite or overeating Answer Date of Assessment Author Not at all 08/09/2025 9:10 AM KENDALLT Anita Walter MA * Feeling bad about yourself - or that you are a failure or have let yourself or your family down Answer Date of Assessment Author Not at all 08/09/2025 9:10 AM KENDALLT Anita Walter MA * Trouble concentrating on things, such as reading the newspaper or watching television Answer Date of Assessment Author Several days 08/09/2025 9:10 AM KENDALLT Anita Walter MA * Moving or speaking so slowly that other people could have noticed? Or the opposite - being so fidgety or restless that you have been moving around a lot more than usual. Answer Date of Assessment Author Not at all 08/09/2025 9:10 AM KENDALLT Anita Walter MA * Thoughts that you would be better off or hurting yourself in some way Answer Date of Assessment Author Not at all 08/09/2025 9:10 AM Anita Walker MA * Patient Health Questionnaire-9 Score Answer Date of Assessment Author 6 08/09/2025 9:10 AM EDT Anita Walter MA * How difficult have these problems made it for you to do your work, take care of things at home, or get along with other people? Answer Date of Assessment Author Somewhat difficult 08/09/2025 9:10 AM EDT Anita Munoz MA * Over the last 2 weeks, how often have you been bothered by any of the following problems? Question Answer Date of Assessment Author Feeling nervous, anxious, or on edge 1 08/09/2025 9:10 AM EDT Anita Walter MA Not being able to stop or co ntrol worrying 1 08/09/2025 9:10 AM EDT Anita Walter MA Worrying too much about diff erent things 1 08/09/2025 9:10 AM EDT Anita Walter MA Trouble relaxing 1 08/09/2025 9:10 AM EDT Anita Hodge MA Being so restless that it is hard to sit still 1 08/09/2025 9:10 AM EDT Anita Walter MA Becoming easily annoyed or irritable 1 08/09/2025 9:10 AM EDT Anita Walter MA Feeling afraid as if somethi ng awful might happen 1 08/09/2025 9:10 AM EDT Anita Walter MA MARY LOU-7 Total Score 7 08/09/2025 9:10 AM EDT Anita Walter MA documented as of this encounter Progress Notes * Libra Barone MD - 08/09/2025 9:00 AM EDT Subjective Patient ID: Sridevi Pruitt is a 65 y.o. female with past medical history of hypertension, diabetes mellitus type 2, hypothyroidism, GERD, and obesity who presents for hospital follow-up. [facility] (07/18/25-07/19/25) Patient presented for evaluation of abdominal pain in the right upper quadrant with nausea and vomiting. US showed gallstones/sludge, possibly early cholecystitis. Admitted to surgical service for further treatment of biliary colic. Patient elected to proceed with laparoscopic cholecystectomy. Patient stable for discharge. Patient to follow up in office in 1 to 2 weeks. Prescribed Docusate zesutl620 mg twice a day and Oxycodone 5 mg every 4 hours as needed for pain (scale score 7-10). [facility] (07/22/25-07/24/25) Patient returned for evaluation s/p laparoscopic cholecystectomy due to sharp, strong right upper quadrant pain. LFTs noted to be extraordinarily elevated. CT scan showed common bile duct to be elevated at 1.2 cm. True stone was not noted. Admitted to surgical service. IV abx initiated. Patient hadmarked improvement in abdominal pain and LFTs trended down. GI felt the most likely scenario was the passage of a CBD stone. IV abx stopped and diet advanced. Patient discharged home in stable condition, to have outpatient LFTs later this week and follow up in the office. [facility] (07/30/25-07/31/25) Patient presented for evaluation of worsening abdominal pain and nausea. Admitted for treatment of likely gallstone pancreatitis. Patient underwent ERCP with multiple sweeps with balloon, no stones seen. LFTs continually down trended and improved, bilirubin normalized. Patient felt well on day of discharge and was tolerating solid diet. Discharged home to follow up in the office in 1 week. Pt reports she is doing well overall. Depression screening was positive. She notes she follows withher psychiatrist and therapist. Declines suicidial or homacidial ideation. Review of Systems Constitutional: Negative for fever and unexpected weight change. Respiratory: Negative for shortness of breath. Cardiovascular: Negative for chest pain. Gastrointestinal: Negative for abdominal pain, nausea and vomiting. Genitourinary: Negative for difficulty urinating. Musculoskeletal: Negative for back pain. Objective Visit Vitals BP 130/79 (BP Location: Left arm, Patient Position: Sitting, BP Cuff Size: Adult) Pulse 52 Temp 98.1 ??F (36.7 ??C) (Oral) Resp 20 Body mass index is 33.18 kg/m??. Physical Exam Constitutional: Appearance: Normal appearance. Cardiovascular: Rate and Rhythm: Normal rate and regular rhythm. Heart sounds: Normal heart sounds. Pulmonary: Effort: Pulmonary effort is normal. Breath sounds: Normal breath sounds. Abdominal: General: Abdomen is flat. Palpations: Abdomen is soft. Tenderness: There is no abdominal tenderness. Comments: Well healed post surgical scars consistent with hx of laparoscopic cholecystectomy. Musculoskeletal: Cervical back: Normal range of motion and neck supple. Neurological: General: No focal deficit present. Mental Status: She is alert. Psychiatric: Behavior: Behavior normal. Assessment & Plan Hx laparoscopic cholecystectomy [facility] (07/18/25-07/19/25) Abdominal US 07/18/25 showed gallstones/sludge, possibly early cholecystitis. Admitted to surgical service for further treatment of biliary colic. Patient elected to proceed withlaparoscopic cholecystectomy. [facility] (07/22/25-07/24/25) Pt returned for evaluation s/p laparoscopic cholecystectomy due to sharp, strong right upper quadrant pain. LFTs noted to be extraordinarily elevated. CT scan showed common bile duct to be elevated at 1.2 cm. True stone was not noted. Admitted to surgical service. IV abx initiated. Patient had marked improvement in abdominal pain and LFTs trended down. GI felt the most likelyscenario was the passage of a CBD stone. IV abx stopped and diet advanced. Patient discharged home in stable condition. [facility] (07/30/25-07/31/25) Pt presented for evaluation of worsening abdominal pain and nausea. Admitted for treatment of likely gallstone pancreatitis. Patient underwent ERCP with multiple sweeps with balloon, no stones seen. LFTs continually down trended and improved, bilirubin normalized. Patient felt well on day of discharge and was tolerating solid diet. Transaminitis Lab Results Component Value Date TOTALBILIRUB 2.1 (H) 07/27/2025 AST 331 (H) 07/27/2025 ALT 324 (H) 07/27/2025 ALT 13 07/16/2022 ALP 733 (H) 07/27/2025 HEPCAB Nonreactive 07/22/2023 HEPAIGM Nonreactive 07/22/2023 HEPBSURFAB REACTIVE 07/22/2023 HEPBCOREAB Nonreactive 07/22/2023 HEPBSURFACAG Negative 07/22/2023 MITOCHAB NEGATIVE 07/21/2023 SMAB <20 07/21/2023 -ordered repeat LFT's 08/09/25 Orders: Hepatic Function Panel; Future Benign hypertension -diagnosed 04/2022 -cough with hernan inhibitor -Blood pressure is at goal 08/09/25 -Continue lifestyle modifications -Continue current medications - Valsartan 80mg once daily added by CDTM 05/09/24 Diabetes mellitus without complication (CMS/HCC) Metformin ER 500mg once daily started by CDTM 09/28/24, increased to Metformin ER 500mg twice daily 01/11/25 Lab Results Component Value Date HGBA1C 7.0 (A) 08/09/2025 HGBA1C 7.2 (H) 04/18/2025 HGBA1C 7.5 (A) 01/11/2025 Lab Results Component Value Date CREATININE 0.75 07/27/2025 EGFR >60 07/27/2025 MICROALBCREU 7.4 04/18/2025 MICROALBCREU 4.5 08/21/2023 LDLCHOLCAL 79 04/18/2025 -Hernan/Arb: ALLERGY TO HERNAN INHIBITORS -Statin therapy: rosuvastatin 20mg -Diabetic eye exam: done 02/28/25 -Diabetic foot exam: done 04/19/25 -Continue lifestyle modifications -On Metformin ER 500mg once daily Orders: POCT Hgb A1c POCT Glucose Positive depression screening Follows with therapist and psychiatrist. Denies suicidial or homacidial ideation. Class 1 obesity due to excess calories with serious comorbidity and body mass index (BMI) of 33.0 to 33.9 in adult Discussed weight, diet, exercise with patient in relation to health conditions. Used motivational interviewing to illicit change talk and established initial goals with patient. Dietary counseling Dietary Recommendations: Fruits, vegetables, whole grains, protein foods, and fat-free or low-fat dairy products are healthychoices. Eat different types of protein foods in your diet. This can include seafood, lean meats, poultry, beans, peas, lentils, nuts, seeds, soy products, and eggs. Limit foods and beverages higher in added sugars, saturated fat, and sodium. Exercise counseling Exercise Recommendations: At least 150 minutes of moderate-intensity physical activity per week, or an equivalent combinationof moderate- and vigorous-intensity activity. Other specified health status -next comprehensive annual evaluation due after 04/19/26 -eye care facilitated by [facility] -dental home is [facility] -health care proxy given 04/19/25 and filed 08/09/25 Follow up in about 9 months (around 05/09/2026) for physical. IOlaf, am serving as a scribe to document services personally performed by Dr. Barraza, based on the patient's response to questions by provider and providers statements to me. documented in this encounter Miscellaneous Notes * Assessment & Plan Note - Libra Barone MD - 08/09/2025 9:00 AM EDT Associated Problem(s): Benign hypertension -diagnosed 04/2022 -cough with hernan inhibitor -Blood pressure is at goal 08/09/25 -Continue lifestyle modifications -Continue current medications - Valsartan 80mg once daily added by CDTM 05/09/24 * Assessment & Plan Note - Libra Barone MD - 08/09/2025 9:00 AM EDT Associated Problem(s): Diabetes mellitus without complication ([facility]) Metformin ER 500mg once daily started by CDTM 09/28/24, increased to Metformin ER 500mg twice daily 01/11/25 Lab Results Component Value Date HGBA1C 7.0 (A) 08/09/2025 HGBA1C 7.2 (H) 04/18/2025 HGBA1C 7.5 (A) 01/11/2025 Lab Results Component Value Date CREATININE 0.75 07/27/2025 EGFR >60 07/27/2025 MICROALBCREU 7.4 04/18/2025 MICROALBCREU 4.5 08/21/2023 LDLCHOLCAL 79 04/18/2025 -Hernan/Arb: ALLERGY TO HERNAN INHIBITORS -Statin therapy: rosuvastatin 20mg -Diabetic eye exam: done 02/28/25 -Diabetic foot exam: done 04/19/25 -Continue lifestyle modifications -On Metformin ER 500mg once daily Orders: POCT Hgb A1c POCT Glucose * Assessment & Plan Note - Libra Barone MD - 08/09/2025 9:00 AM EDT Associated Problem(s): Class 2 severe obesity due to excess calories with serious comorbidity and body mass index (BMI) of 36.0 to 36.9 in adult (CMS/HCC) Discussed weight, diet, exercise with patient in relation to health conditions. Used motivational interviewing to illicit change talk and established initial goals with patient. * Assessment & Plan Note - Libra Barone MD - 08/09/2025 9:00 AM EDT Associated Problem(s): Transaminitis Lab Results Component Value Date TOTALBILIRUB 2.1 (H) 07/27/2025 AST 331 (H) 07/27/2025 ALT 324 (H) 07/27/2025 ALT 13 07/16/2022 ALP 733 (H) 07/27/2025 HEPCAB Nonreactive 07/22/2023 HEPAIGM Nonreactive 07/22/2023 HEPBSURFAB REACTIVE 07/22/2023 HEPBCOREAB Nonreactive 07/22/2023 HEPBSURFACAG Negative 07/22/2023 MITOCHAB NEGATIVE 07/21/2023 SMAB <20 07/21/2023 -ordered repeat LFT's 08/09/25 Orders: Hepatic Function Panel; Future * Assessment & Plan Note - Libra Barone MD - 08/09/2025 9:00 AM EDT Associated Problem(s): Hx laparoscopic cholecystectomy [facility] (07/18/25-07/19/25) Abdominal US 07/18/25 showed gallstones/sludge, possibly early cholecystitis. Admitted to surgical service for further treatment of biliary colic. Patient elected to proceed withlaparoscopic cholecystectomy. [facility] (07/22/25-07/24/25) Pt returned for evaluation s/p laparoscopic cholecystectomy due to sharp, strong right upper quadrant pain. LFTs noted to be extraordinarily elevated. CT scan showed common bile duct to be elevated at 1.2 cm. True stone was not noted. Admitted to surgical service. IV abx initiated. Patient had marked improvement in abdominal pain and LFTs trended down. GI felt the most likelyscenario was the passage of a CBD stone. IV abx stopped and diet advanced. Patient discharged home in stable condition. [facility] (07/30/25-07/31/25) Pt presented for evaluation of worsening abdominal pain and nausea. Admitted for treatment of likely gallstone pancreatitis. Patient underwent ERCP with multiple sweeps with balloon, no stones seen. LFTs continually down trended and improved, bilirubin normalized. Patient felt well on day of discharge and was tolerating solid diet. * Assessment & Plan Note - Libra Barone MD - 08/09/2025 9:00 AM EDT Associated Problem(s): Other specified health status -next comprehensive annual evaluation due after 04/19/26 -eye care facilitated by [facility] -dental home is [facility] -health care proxy given 04/19/25 and filed 08/09/25 documented in this encounter Plan of Treatment Upcoming Encounters Date Type Department Care Team (Late st Contact Info) Description 08/15/2025 3:30 PM EDT Medication Management [facility] [address] [place] [address] Malu Medina, PharmD [address] [place] [address] Scheduled Orders Name Type Priority Associated Diagnoses Orde r Schedule Hepatic Function Panel Lab Routine Transaminitis Expected: 08/09/2025 (Approximate), Expires: 08/09/2026 documented as of this encounter Goals Goal Patient Goal Type Associated Problems Recent Progress Patient-Stated? Author Blood Pressure < 140/90 Blood Pressure 130/79(2024 9:09 AM EDT) No Malu Mckinnon PharmD Hemoglobin A1c < 7 Result Component 7(08/09/2025 9:12 AM EDT) No Malu Mckinnon PharmD documented as of this encounter Procedures Procedure Name Priority Date/Time Associated Diagnosis Comments POCT GLYCATED HEMOGLOBIN, TOTAL Routine 08/09/2025 9:12 AM EDT Diabetes mellitus without complication (CMS/HCC) POCT GLUCOSE Routine 08/09/2025 9:12 AM EDT Diabetes mellitus without complication (CMS/HCC) documented in this encounter Results * (ABNORMAL) POCT Glucose (08/09/2025 9:12 AM EDT) Glucose Blood, POC 225(A) 60 - 200 mg/dL QC Media Lot # [id number] Lot# Expiration Date 864, Blood Capillary blood specimen / Unknown 08/09/2025 9:12 AM EDT Libra Barone MD POINT OF CARE TEST ENTER/E DIT ORDERABLES Final Result * (ABNORMAL) POCT Hgb A1c (08/09/2025 9:12 AM EDT) Hemoglobin A1C 7.0(A) 4.0 - 5.7 % QC Media Lot # [id number] Lot# Expiration Date 968,711 Blood 08/09/2025 9:12 AM EDT Libra Barone MD POINT OF CARE TEST ENTER/E DIT ORDERABLES Final Result documented in this encounter Visit Diagnoses Diagnosis Hx laparoscopic cholecystectomy- Primary Transaminitis Nonspecific elevation of levels of transaminase or lactic acid dehydrogenase (LDH) Benign hypertension Essential hypertension, benign Diabetes mellitus without complication (CMS/HCC) Type II or unspecified type diabetes mellitus without mention of complication, not stated as uncontrolled Positive depression screening Class 1 obesity due to excess calories with serious comorbidity and body mass index (BMI) of 33.0 to 33.9 in adult Dietary counseling Dietary surveillance and counseling Exercise counseling Other specified health status Depressive disorder Depressive disorder, not elsewhere classified Irritable bowel syndrome, unspecified type documented in this encounter Additional Health Concerns Assessment Noted Time PHQ-9 Depression Total Score: 6 08/09/20 25 9:10 AM EDT documented as of this encounter Care Teams Blade Grader Operator Relationship Specialty Start Date End Date Libra Barone MD [address] [place] [address] PCP - General Family Medicine 11/23/18 Malu Medina, LisaD [address] [place] [address] Pharmacist Internal Medicine 05/09/24 Tamie Vega OD [address] [place] [phone] Optometry 02/16/25LaiFebruary [address] [place] [address] Drive [address] [place] [address] Gastroenterology 04/20/25 Dr. Nimo Sellers Psychiatry 08/09/25 documented as of this encounter
--- OUTSIDE RECORDS SUMMARY | 2025-08-09 11:09 | XMS_ITS | Encounter Summary ---
Author Organization [employer] Address [address] [facility] 7t [place] [address] Care Team Providers Care Elder Counselor Name Role Phone Libra Barone MD Primary Care Provider + [phone] Malu Medina PharmD Unavailable [phone] Tamie Vega OD Unavailable February Unavailable Encounter Details Date Type Department Care Team (Latest Contact Info) Description 10/09/2022 Abstract [facility] CONVERSION[facility] Dental, Provider, DDS Social History [...] Description 08/15/2025 3:30 PM EDT Medication Management [facility] [address] [place], [place] [phone] Malu Medina, PharmD [address] [place], [place] [phone] documented as of this encounter Visit Diagnoses Not on filedocumented in this encounter Care Teams Elder Counselor Relationship Specialty Start Date End Date Libra Barone MD [address] [place], [place] [phone] PCP - General Family Medicine 11/23/18 Malu Medina, Becky [address] [place], [place] [phone] Pharmacist Internal Medicine 05/09/24 Tamie Vega OD [address] [place] [phone] Optometry 02/16/25February [address] [place] [address] Drive 3rd [place] [address] Gastroenterology 04/20/25 Dr. Nimo Sellers Psychiatry 08/09/25 documented as of this encounter
--- OUTSIDE RECORDS SUMMARY | 2025-08-09 11:09 | XMS_ITS | Encounter Summary ---
Author Organization [employer] Address [address] [facility] 7t [place] [address] Care Team Providers Care Commercial Lines Account Manager Name Role Phone Libra Barone MD Primary Care Provider + [phone] Malu Medina PharmD Unavailable Gary, Tamie OD Unavailable [phone] February Unavailable Reason for Visit * Reason Onset Date Comments Pharmacy [facility] 08/19/2024 Encounter Details Date Type Department Care Team ([facility] st Contact Info) Description 08/19/2024 Telephone [facility] [address] [place], [place] [phone] Libra Barone MD [address] [place], [place] [phone] Pharmacy [facility] Social History Tobacco Use Types [...] Description 08/15/2025 3:30 PM EDT Medication Management [facility] [address] [place] [address] Malu Medina PharmD [address] [place] [address] documented as of this encounter Goals Goal Patient Goal Type Associated Problems Recent Progress Patient-Stated? Author Blood Pressure < 140/90 Blood Pressure 130/79(2024 9:09 AM EDT) No Malu Mckinnon, PharmD Hemoglobin A1c < 7 Result Component 7(08/09/2025 9:12 AM EDT) No Malu Mckinnon PharmD documented as of this encounter Visit Diagnoses Not on filedocumented in this encounter Additional Health Concerns Assessment Noted Time PHQ-9 Depression Total Score: 0 04/20/20 24 3:44 PM EDT documented as of this encounter Care Teams Commercial Lines Account Manager Relationship Specialty Start Date End Date Libra Barone MD [address] [place] [address] PCP - General Family Medicine 11/23/18 Malu Medina, LisaD [address] [place] [phone] Pharmacist Internal Medicine 05/09/24 Tamie Vega OD [address] [place] [phone] Optometry 02/16/25February [address] [place] [address] 3rd [place] [address] Gastroenterology 04/20/25 Dr. Nimo Sellers Psychiatry 08/09/25 documented as of this encounter
--- OUTSIDE RECORDS SUMMARY | 2025-08-09 11:09 | XMS_ITS | Encounter Summary ---
Author Organization [employer] Address [address] [facility] 7t [place] [address] Care Team Providers Care Annual Giving Officer Name Role Phone Libra Barone MD Primary Care Provider + [phone] Malu Medina PharmD Unavailable Gary, Tamie OD Unavailable February Unavailable Reason for Visit * Reason Onset Date Comments CHART PREP 08/08/2025 Encounter Details Date Type Department Care Team ([facility] st Contact Info) Description 08/08/2025 Telephone [facility] MEDICINE [address] [place], [place] [phone] Libra Barone MD [address] [place], [place] [phone] CHART PREP Social History Tobacco Use Types Packs/Day Years [...] encounter Miscellaneous Notes * Telephone Encounter - Richard Morrison MA - 08/08/2025 6:15 PM EDT Chart Prep Labs: not applicable Images: not applicable Referrals: not applicable Vaccines due: Covid, Flu, and RSV Screenings: not applicable Overdue care gaps: A1c, Glucose, PHQ-9, and MARY LOU-7 documented in this encounter Plan of Treatment Upcoming Encounters Date Type Department Care Team (Late st Contact Info) Description 08/15/2025 3:30 PM EDT Medication Management [facility] MEDICINE [address] [place] [address] Malu Medina, PharmD [address] [place] [address] documented as of this encounter Goals Goal [...] documented as of this encounter Care Teams Annual Giving Officer Relationship Specialty Start Date End Date Libra Barone MD [address] [place] [address] PCP - General Family Medicine 11/23/18 Malu Medina PharmD [address] [place] [phone] Pharmacist Internal Medicine 05/09/24 Tamie Vega OD [address] [place] [phone] Optometry 02/16/25February [address] [place] [address] 3rd [place] [address] Gastroenterology 04/20/25 documented as of this encounter
--- OUTSIDE RECORDS SUMMARY | 2025-08-09 11:09 | XMS_ITS | Encounter Summary ---
Author Organization [employer] Address [address] [facility] 7t [place] [address] Care Team Providers Care Sketch Artist Name Role Phone Libra Barone MD Primary Care Provider + [phone] Malu Medina PharmD Unavailable [phone] Tamie Vega OD Unavailable February Unavailable Encounter Details Date Type Department Care Team (Latest Contact Info) Description 03/14/2019 Abstract [facility] CONVERSIONS Dental, Provider, DDS Social History [...] Description 08/15/2025 3:30 PM EDT Medication Management [facility] MEDICINE [address] [place], [place] [phone] Malu Mdeina PharmD [address] [place] [address] documented as of this encounter Visit Diagnoses Not on filedocumented in this encounter Care Teams Sketch Artist Relationship Specialty Start Date End Date Libra Barone MD [address] [place], [place] [phone] PCP - General Family Medicine 11/23/18 Malu Medina, Becky [address] [place], [place] [phone] Pharmacist Internal Medicine 05/09/24 Tamie Vega OD [address] [place] [address] [phone] Optometry 02/16/25February [address] [place] [address] 3rd [place] [address] Gastroenterology 04/20/25 Dr. Nimo Sellers Psychiatry 08/09/25 documented as of this encounter
--- OUTSIDE RECORDS SUMMARY | 2025-08-09 11:09 | XMS_ITS | Encounter Summary ---
Author Organization [employer] Address [address] [facility] 7t [place] [address] Care Team Providers Care Retail Coverage Merchandiser Lead Name Role Phone Libra Barone MD Primary Care Provider + [phone] Malu Medina PharmD Unavailable Tamie Vega OD Unavailable February Unavailable Encounter Details Date Type Department Care Team (Latest Contact Info) Description 03/25/2021 Abstract [facility] CONVERSIONS Dental, Provider, DDS Social History [...] Description 08/15/2025 3:30 PM EDT Medication Management [facility] MEDICINE 230 [place], [place] [phone] Malu Medina, PharmD [address] [place], [place] [phone] documented as of this encounter Visit Diagnoses Not on filedocumented in this encounter Care Teams Retail Coverage Merchandiser Lead Relationship Specialty Start Date End Date Libra Barone MD [address] [place], [place] [phone] PCP - General Family Medicine 11/23/18 Malu Medina, Becky [address] [place], [place] [phone] Pharmacist Internal Medicine 05/09/24 Tamie Vega OD [address] [place] [address] [phone] Optometry 02/16/25February [address] [place] [address] Drive 3rd [place] [address] Gastroenterology 04/20/25 Dr. Nimo Sellers Psychiatry 08/09/25 documented as of this encounter
--- OUTSIDE RECORDS SUMMARY | 2025-08-09 11:09 | XMS_ITS | Encounter Summary ---
Author Organization [employer] Address [address] [facility] 7t [place] [address] Care Team Providers Care Cash Management Coordinator Name Role Phone Libra Barone MD Primary Care Provider + [phone] Malu Medina PharmD Unavailable Gary, Tamie OD Unavailable [phone] February Unavailable Reason for Visit * Reason Onset Date Comments Appointment Request 08/22/2024 Encounter Details Date Type Department Care Team ([facility] st Contact Info) Description 08/22/2024 Telephone [facility] MEDICINE [address] [place], [place] [phone] Libra Barone MD 230 [place], [place] [phone] Appointment Request Social History Tobacco Use Types [...] Description 08/15/2025 3:30 PM EDT Medication Management [facility] MEDICINE [address] [place] [address] Malu Medina PharmD [address] [place] [address] documented as of this encounter Goals Goal [...] documented as of this encounter Care Teams Cash Management Coordinator Relationship Specialty Start Date End Date Libra Barone MD [address] [place] [phone] PCP - General Family Medicine 11/23/18 Malu Medina, Becky [address] [place] [address] Pharmacist Internal Medicine 05/09/24 Tamie Vega OD [address] [place] [address] Optometry 02/16/25LaiFebruary [address] [place] [address] 3rd [place] [address] Gastroenterology 04/20/25 Dr. Nimo Sellers Psychiatry 08/09/25 documented as of this encounter
--- OUTSIDE RECORDS SUMMARY | 2025-08-09 11:10 | XMS_ITS | Encounter Summary ---
Author Organization [employer] Address [address] [facility] [address] [place] [address] Care Team Providers Care Bilingual Interpreter Name Role Phone Libra Barone MD Primary Care Provider +- [phone] Malu Medina PharmD Unavailable [phone] Gary, Tamie OD Unavailable [phone] February Unavailable Encounter Details Date Type Department Care Team (Latest Contact Info) Description 08/09/2025 Travel Social History Tobacco Use Types Packs/Day [...] AM EDT documented as of this encounter Functional Status * Over the past 2 weeks, how often have you been bothered by any of the following problems? Question Answer Date of Assessment Author Patient Health Questionnaire -2 Score 2 08/09/2025 9:10 AM EDT Anita Walter MA * Little interest or pleasure in doing things Answer Date of Assessment Author Several days 08/09/2025 9:10 AM EDT Anita Walter MA * Feeling down, depressed, or hopeless Answer Date of Assessment Author Several days 08/09/2025 9:10 AM KENDALLT Anita Walter MA * Trouble falling or staying asleep, or sleeping too much Answer Date of Assessment Author Several days 08/09/2025 9:10 AM KENDALLT Anita Walter MA * Feeling tired or having little energy Answer Date of Assessment Author More than half the days 08/09/2025 9:10 AM EDT Anita Hodge MA * Poor appetite or overeating Answer Date of Assessment Author Not at all 08/09/2025 9:10 AM EDT Anita Walter MA * Feeling bad about yourself - or that you are a failure or have let yourself or your family down Answer Date of Assessment Author Not at all 08/09/2025 9:10 AM KENDALLT Anita Walter MA * Trouble concentrating on things, such as reading the newspaper or watching television Answer Date of Assessment Author Several days 08/09/2025 9:10 AM Anita Walker MA * Moving or speaking so slowly that other people could have noticed? Or the opposite - being so fidgety or restless that you have been moving around a lot more than usual. Answer Date of Assessment Author Not at all 08/09/2025 9:10 AM Anita Walker MA * Thoughts that you would be better off or hurting yourself in some way Answer Date of Assessment Author Not at all 08/09/2025 9:10 AM Anita Walker MA * Patient Health Questionnaire-9 Score Answer Date of Assessment Author 6 08/09/2025 9:10 AM Anita Walker MA * How difficult have these problems made it for you to do your work, take care of things at home, or get along with other people? Answer Date of Assessment Author Somewhat difficult 08/09/2025 9:10 AM Anita Ocampo MA * Over the last 2 weeks, how often have you been bothered by any of the following problems? Question Answer Date of Assessment Author Feeling nervous, anxious, or on edge 1 08/09/2025 9:10 AM Anita Walker MA Not being able to stop or co ntrol worrying 1 08/09/2025 9:10 AM Anita Walker MA Worrying too much about diff erent things 1 08/09/2025 9:10 AM Anita Walker MA Trouble relaxing 1 08/09/2025 9:10 AM Anita Walker MA Being so restless that it is hard to sit still 1 08/09/2025 9:10 AM Anita Walker MA Becoming easily annoyed or irritable 1 08/09/2025 9:10 AM Anita Walker MA Feeling afraid as if somethi ng awful might happen 1 08/09/2025 9:10 AM Anita Walker MA MARY LOU-7 Total Score 7 08/09/2025 9:10 AM Anita Walker MA documented as of this encounter Plan of Treatment Upcoming Encounters Date Type Department Care Team (Late st Contact Info) Description 08/15/2025 3:30 PM EDT Medication Management [facility] MEDICINE [address] [place] [address] Malu Medina PharmD [address] [place] [address] documented as of this encounter Goals Goal [...] documented as of this encounter Care Teams Bilingual Interpreter Relationship Specialty Start Date End Date Libra Barone MD [address] [place] [address] PCP - General Family Medicine 11/23/18 Malu Medina PharmD [address] [place] [address] Pharmacist Internal Medicine 05/09/24 Tamie Vega OD [address] [place] [phone] Optometry 02/16/25February [address] [place] [address] [address] [place] [address] Gastroenterology 04/20/25 Dr. Nimo Sellers Psychiatry 08/09/25 documented as of this encounter
--- OUTSIDE RECORDS SUMMARY | 2025-08-09 11:10 | XMS_ITS | Clinical Summary ---
Author Organization [employer] Address [address] [facility] [address] [place] [address] Care Team Providers Care Fabrication Department Supervisor Name Role Phone Libra Barone MD Primary Care Provider [phone]- [phone] Malu Medina PharmD Unavailable Gary Tamie OD Unavailable [phone] Unavailable Allergies Active Allergy Reactions Criticality Noted Date Comments Hernan Inhibitors Cough 12/03/2022 Medications Spacer/Aero-Holdi ng Chambers (Compact Space Chamber) deviceIndications :Viral URI USE WITH INHALER EVERY 4 HOURS NEEDED (for asthma) 2 each 024 Active valsartan (Diovan) 80 MG tabletIndications :Benign hypertension Take 1 tablet (80 mg) by mouth Once per day. 90 tablet 3 024 Active Ventolin HFA 108 (90 Base) MCG/ACT [...] replace cap. 48 g 3 025 Active rosuvastatin (Crestor) 20 MG tabletIndications :Diabetes mellitus without complication ([facility]/HCC) Take 1 tablet (20 mg) by mouth [...] DIRECTED TWICE DAILY 100 each 025 Active atenolol (Tenormin) 25 MG tabletIndications :Benign hypertension TAKE 1 TABLET BY MOUTH EVERY MORNING 90 tablet 3 025 Active FREESTYLE LITE test stripIndications: Hyperglycemia, unspecified,Diabe nathaly mellitus without complication ([facility]) USE DIRECTED TO TEST BLOOD SUGAR TWICE DAILY 100 strip 025 Active TRUEplus Lancets 33G miscIndications:H yperglycemia, unspecified,Diabe nathaly mellitus without complication ([facility]) USE DIRECTED TO TEST BLOOD SUGAR TWICE DAILY 100 each 025 Active buPROPion XL (Wellbutrin XL) 150 MG 24 hr tabletIndications :Depressive disorder Take 150 mg by mouth Once per day. Do not crush, chew, or split. Active buPROPion XL (Wellbutrin XL) 300 MG 24 hr tabletIndications :Depressive disorder Take 300 mg by mouth Once per day. Do not crush, chew, or split. Active dicyclomine (Bentyl) 20 MG tabletIndications :Irritable bowel syndrome, unspecified type Take by mouth before breakfast, before lunch, before evening meal, and at bedtime. Active metoclopramide (Reglan) 10 MG tabletIndications :Irritable bowel syndrome, unspecified type Take by mouth. Active pantoprazole (ProtoNix) 40 MG EC tabletIndications :Irritable bowel syndrome, unspecified type Take 40 mg by mouth before breakfast. Do not crush, chew, or split. Active senna-docusate sodium (Senokot-S) 8.6-50 MG tabletIndications :Irritable bowel syndrome, unspecified type Take 1 tablet by mouth Once per day. Active sertraline (Zoloft) 100 MG tabletIndications :Depressive disorder Take by mouth. Activ e simethicone (Mylicon,Gas-X) 180 MG capsuleIndication s:Irritable bowel syndrome, unspecified type Take 180 mg by mouth every 6 (six) hours if needed for flatulence. Active buPROPion XL (Wellbutrin XL) 300 MG 24 hr tablet Take 1 tablet by mouth in the morning. 2024 Discontinued(M ed list cleanup (will not trigger notification to Pharmacy)) buPROPion XL (Wellbutrin XL) 150 MG 24 hr tablet Take 1 tablet by mouth at bed time. 2024 Discontinued(M ed list cleanup (will not trigger notification to Pharmacy)) pantoprazole (ProtoNix) 40 MG EC tablet Take 1 tablet by mouth every 12 (twelve) hours. 2024 Discontinued(M ed list cleanup (will not trigger notification to Pharmacy)) sennosides (Senokot) 8.6 MG tablet Take 2 tablets by mouth if needed at bedtime. 2024 Discontinued(M ed list cleanup (will not trigger notification to Pharmacy)) sertraline (Zoloft) 100 MG tablet Take 150 mg by mouth 1 (one) time each day. 2024 Discontinued(M ed list cleanup (will not trigger notification to Pharmacy)) simethicone (Mylicon,Gas-X) 180 MG capsule Take 1 capsule by mouth after meals and at bedtime as needed for bloating 2024 Discontinued(M ed list cleanup (will not trigger notification to Pharmacy)) metoclopramide (Reglan) 10 MG tablet Take 10 mg by mouth before breakfast, before lunch, and before evening meal. 024 2024 Discontinued(M ed list cleanup (will not trigger notification to Pharmacy)) atenolol (Tenormin) 25 MG tabletIndications :Benign hypertension [...] DAILY 100 strip 11 024 2024 Discontinued clotrimazole (Lotrimin) 1 % creamIndications: Candidiasis Apply topically 2 times daily. 14 g 1 025 2024 Discontinued(T herapy completed) hydrocortisone 2.5 % cream APPLY 1 APPLICATION RECTALLY TWICE DAILY NEEDED FOR HEMORRHOIDS 2024 Discontinued dicyclomine (Bentyl) 20 MG tablet Take 1 tablet by mouth 3 times daily. 025 2024 Discontinued(M ed list cleanup (will not trigger notification to Pharmacy)) Active Problems Patient Care Coordination No te Formatting of this note migh t be different from the original. Enrolled in [facility] DM clinic with Malu Medina, PharmD, [facility] Problem Noted Date Diagnosed Date Hx laparoscopic cholecystectomy 08/09/2025 Overview (08/09/2025[place] [facility] [place] Abdominal US 07/18/25 showed gallstones/sludge, possibly early cholecystitis. Admitted to surgical service for further treatment of biliary colic. Patient elected to proceed with laparoscopic cholecystectomy. [facility] [place] Pt returned for evaluation s/p laparoscopic [...] advanced. Patient discharged home in stable condition. [facility] [place] Pt presented for evaluation of worsening abdominal pain and nausea. Admitted for treatment of likely gallstone pancreatitis. Patient underwent ERCP with multiple sweeps with balloon, no stones seen. LFTs continually down trended and improved, bilirubin normalized. Patient felt well on day of discharge and was tolerating solid diet. Assessment & Plan (08/09/2025 9:51 AM EDT): [facility] [place] Abdominal US 07/18/25 showed gallstones/sludge, possibly early cholecystitis. Admitted to surgical service for further treatment of biliary colic. Patient elected to proceed with laparoscopic cholecystectomy. [facility] [place] Pt returned for evaluation s/p laparoscopic [...] advanced. Patient discharged home in stable condition. [facility] [place] Pt presented for evaluation of worsening abdominal pain and nausea. Admitted for treatment of likely gallstone pancreatitis. Patient underwent ERCP with multiple sweeps with balloon, no stones seen. LFTs continually down trended and improved, bilirubin normalized. Patient felt well on day of discharge and was tolerating solid diet. Right upper quadrant abdominal pain 07/26/2025 Overview (08/09/2025): Seen In ER after cholecystectomy postop day [...] of 36.0 to 36.9 in adult 03/28/2025 Assessment & Plan (08/09/2025 9:51 AM EDT): Discussed weight, diet, exercise with patient in relation to health conditions. Used motivational interviewing to illicit change talk and established initial goals with patient. Mastalgia in female 03/08/2025 Overview (05/19/2025): 05/19/25 [...] loss 06/22/2024 Overview (06/22/2024): -Abnormal audiogram at [facility] 05/2024 -ENT referral placed 06/22/24 Assessment & Plan (04/19/2025 2:34 PM EDT): -Abnormal audiogram at [facility] 05/2024 -ENT referral placed 06/22/24 History of postmenopausal bleeding 06/22/2024 Overview (04/19/2025): Seen by Dr. Alonso at [facility] 91/. -co testing done, recommended ultrasound to measure [...] 1.7-2.7 cm. Recommended to Gyne Onc consult Material Loader Onc referral for a consult placed by Dr. Alonso 09/08/24 Seen by credit rating inspector 09/21/24 MRI recommended and possible surery in the future. Follow up after MRI. (Material Loader noted does not have location of signature of provider) -Saw MARKETING COORDINATOR at [facility] 09/21 for intake and a Televist 10/10/24. Per note by Dr. Rosanna Lowe who noted size and growth is stable dating back to 2020, recommending annual pelvic US. Assessment & Plan (04/19/2025 2:45 PM EDT): Seen by Dr. Alonso at [facility] 73/. -co testing done, recommended ultrasound [...] 1.7-2.7 cm. Recommended to Gyne Onc consult Material Loader Onc referral for a consult placed by Dr. Alonso 09/08/24 Seen by credit rating inspector 09/21/24 MRI recommended and possible surery in the future. Follow up after MRI. (Material Loader noted does not have location of signature of provider) -Saw MARKETING COORDINATOR at [facility] 09/21 for intake and a Televist [...] fracture or dislocation seen. Transaminitis 08/19/2023 Overview (08/09/2025): Lab Results Component Value Date TOTALBILIRUB 2.1 (H) 07/27/2025 AST 331 (H) 07/27/2025 ALT 324 (H) 07/27/2025 ALT 13 07/16/2022 ALP 733 (H) 07/27/2025 HEPCAB Nonreactive 07/22/2023 HEPAIGM Nonreactive 07/22/2023 HEPBSURFAB REACTIVE 07/22/2023 HEPBCOREAB Nonreactive 07/22/2023 HEPBSURFACAG Negative 07/22/2023 MITOCHAB NEGATIVE 07/21/2023 SMAB <20 07/21/2023 -ordered repeat LFT's 08/09/25 Assessment & Plan (08/09/2025 9:51 AM EDT): Lab Results Component Value Date TOTALBILIRUB 2.1 (H) 07/27/2025 AST 331 (H) 07/27/2025 ALT 324 (H) 07/27/2025 ALT 13 07/16/2022 ALP 733 (H) 07/27/2025 HEPCAB Nonreactive 07/22/2023 HEPAIGM Nonreactive 07/22/2023 HEPBSURFAB REACTIVE 07/22/2023 HEPBCOREAB Nonreactive 07/22/2023 HEPBSURFACAG Negative 07/22/2023 MITOCHAB NEGATIVE 07/21/2023 SMAB <20 07/21/2023 -ordered repeat LFT's 08/09/25 Orders: Hepatic Function Panel; Future Assessment & Plan (04/19/2025 2:32 PM EDT): [...] 08/19/2023 Other specified health status 05/27/2023 Overview (08/09/2025): -next comprehensive annual evaluation due after 04/19/26 -eye care facilitated by [facility] -dental home is [facility] -health care proxy given 04/19/25 and filed 08/09/25 Assessment & Plan (08/09/2025 9:51 AM EDT): -next comprehensive annual evaluation due after 04/19/26 -eye care facilitated by [facility] -dental home is [facility] -health care proxy given 04/19/25 and filed 08/09/25 Assessment & Plan (04/19/2025 2:32 PM EDT): -next comprehensive annual evaluation due after 04/19/26 -eye care facilitated by [facility] -dental home is [facility] -health care proxy given and [...] colonoscopy Dec 2018 Benign hypertension 07/08/2022 Overview (08/09/2025): -diagnosed 04/2022 -cough with hernan inhibitor -Blood pressure is at goal 08/09/25 -Continue lifestyle modifications -Continue current medications - Valsartan 80mg once daily added by CDTM 05/09/24 Assessment & Plan (08/09/2025 9:51 AM EDT): -diagnosed 04/2022 -cough with hernan inhibitor [...] 11/20/2020 Diabetes mellitus without complication 7 Overview (08/09/2025): Metformin ER 500mg once daily started by [...] modifications -On Metformin ER 500mg once daily Assessment & Plan (08/09/2025 9:51 AM EDT): Metformin ER 500mg once daily started [...] daily Orders: POCT Hgb A1c POCT Glucose Assessment & Plan (04/19/2025 2:33 PM EDT): Metformin ER 500mg once daily started by [facility] 09/28/24, increased to Metformin ER 500mg twice [...] Encounters Date Type Department Care Team Description 08/09/2025 9:00 AM EDT Office Visit [facility] [address] [place] [phone] Libra Barone MD Hx laparoscopic cholecystectomy (Primary Dx); Transaminitis; Benign hypertension; Diabetes mellitus without complication (CMS/HCC); Positive depression screening; Class 1 obesity due to excess calories with serious comorbidity and body mass index (BMI) of 33.0 to 33.9 in adult; Dietary counseling; Exercise counseling; Other specified health status; Depressive disorder; Irritable bowel syndrome, unspecified type 08/09/2025 Travel 08/08/2025 Telephone [facility] [address] [place] [phone] Libra Barone MD CHART PREP 08/02/2025 Refill [facility] [address] [place] [phone] Libra Barone MD Hyperglycemia, unspecified; Diabetes mellitus without complication (CMS/HCC) 07/28/2025 Orders Only [facility] External Provider, [facility] 07/28/2025 Telephone [facility] [address] [place] [phone] Libra Barone MD FYI 07/27/2025 Orders Only GENERIC EXTERNAL DATA DEPARTMENT Provider, Generic External Data 07/22/2025 Orders Only [facility] External Provider, [facility] 07/21/2025 Orders Only GENERIC EXTERNAL DATA DEPARTMENT Provider, Generic External Data 07/20/2025 Patient Outreach [facility] [address] [place] [address] Libra Barone MD Transition Of Care (Tcm) (HDF scheduled. ) 07/20/2025 Telephone [facility] [address] [place] [phone] Libra Barone MD Medication Question 07/18/2025 Orders Only GENERIC EXTERNAL DATA DEPARTMENT Provider, Generic External Data Abdominal pain, unspecified abdominal location (Primary Dx) 07/13/2025 Refill [facility] [address] [place] [phone] Malu Medina, LisaD Benign hypertension 06/26/2025 Orders Only [facility] [address] [place] [phone] Libra Barone MD 06/23/2025 Telephone [facility] [address] [place] [phone] Libra Barone MD 05/30/2025 Refill [facility] [address] [place] [phone] Libra Barone MD Mild intermittent asthma without complication; High blood sugar 05/22/2025 Travel 05/18/2025 Orders Only [facility] [address] [place] [phone] Sue Coats MD 05/09/2025 Telephone [facility] [address] [place] [phone] Libra Barone MD Med Refill from Last 3 Months Immunizations Immunization Administration [...] got money to buy more: Sometimes True 02/25/ 2025 Within the past 12 months,th e food [...] Mass Index 33.18 08/09/2025 9:09 AM EDT Plan of Treatment Upcoming Encounters Date Type Department Care Team (Late st Contact Info) Description 08/15/2025 3:30 PM EDT Medication Management [facility] [address] [place], [place] [phone] Malu Medina, PharmD [address] [place] [address] Health Maintenance Due Date Last Done Comments CT Colonography 1959 FIT DNA/Cologuard 1960 FIT 1960 FOBT 1960 Sigmoidoscopy 1960 RSV Patients and Patients Aged 60 years or older (1 - Risk 60-74 years 1-dose series) 2019 Dental Oral Exam 05/10/2025 11/08/2024, , 03/25/2021, Additional history exists Dental Prophylaxis 05/10/2025 11/08/2024, 0 12/17/2023, 10/09/2022, Additional history exists COVID-19 Vaccine ( season) 2025 10/22/2022, 05/20/2021, 04/10/2021 Influenza Vaccine (#1) 2025 , 08/19/2023, 08/28/2022, Additional history exists Dental X-Ray: Full Mouth 10/10/2025 022, 02/28/2021, 02/02/2019, Additional history exists Diabetes: Hemoglobin A1C 11/08/2025 025, 04/18/2025, 01/11/2025, Additional history exists Dental X-Ray: Bitewings 12/23/2025 12/22/19 25, 11/08/2024, 12/17/2023, Additional history exists SDOH Screening 01/17/2026 01/17/2025 Alcohol/Substance Use Screening 01/26/2026 01/26/2025 Diabetes: Urine Protein Screening 04/18/2026 04/18/2025, 08/21/2023, 2023, Additional history exists Lipid Panel 04/18/2026 04/18/2025, 08/24, 2023, Additional history exists Diabetes: Foot Exam 04/19/2026 04/19/2025, 04/19/2025, 04/19/2025, Additional history exists Mammogram 05/18/2026 05/18/2025, 04/24, 07/16/2024, Additional history exists Depression Screening 08/09/2026 08/09/2025, 08/09/20 25 Tobacco Screening 08/09/2026 08/09/2025 Eye Exam 02/28/2027 02/28/2025, 0406/2025, 02/28/2025, Additional [...] 9:12 AM EDT) No Malu Mckinnon PharmD Procedures Procedure Name Priority Date/Time Associated Diagnosis Comments POCT GLUCOSE Routine 08/09/2025 9:12 AM EDT Diabetes mellitus without complication (CMS/HCC) POCT GLYCATED HEMOGLOBIN, TOTAL Routine 08/09/2025 9:12 AM EDT Diabetes mellitus without complication (CMS/HCC) FL GUIDANCE IN OR Routine 07/28/2025 1:5 [...] Relevant to Health Maintenance Results * (ABNORMAL) POCT Hgb A1c (08/09/2025 9:12 AM EDT) Hemoglobin A1C 7.0(A) 4.0 - 5.7 % QC Media Lot # [id number] Lot# Expiration Date [id number] Blood 08/09/2025 9:12 AM EDT us Libra Barone MD POINT OF CARE TEST ENTER/E DIT ORDERABLES Final Result * (ABNORMAL) POCT Glucose (08/09/2025 9:12 AM EDT) Glucose Blood, POC 225(A) 60 - 200 mg/dL QC Media Lot # [id number] Lot# Expiration Date [id number] Blood Capillary blood specimen / Unknown 08/09/2025 9:12 AM EDT us Libra Barone MD POINT OF CARE TEST ENTER/E DIT ORDERABLES Final Result * FL Guidance in OR (07/28/2025 1:53 PM EDT) Anatomical Region Laterality Modality X-Ray Angiograph y 07/28/2025 1:53 PM EDT Narrative 07/28/2025 2:48 PM EDT [address] [address] Fluoroscopy Report Signed Patient: Sridevi Pruitt I MR#: [id number] : 1960 Acct:[id number] Age/Sex: 65 / F ADM Date: 07/28/25 Loc: HO.S3 354-[address]: Dex Silva MD Ordering Physician: Arya Gutierrez MD Date of Service: 07/28/25 Procedure(s): FL guidance in OR Accession Number(s): [id number] cc: Libra Barone MD; Arya Gutierrez MD [...] Ronak Adair MD 07/28/2025 02:45 PM EDT Dictated By: Ronak Adair MD Signed By: <Electronically signed by Ronak Adair MD in OV> 07/28/25 1445 DD/ 1353 TD/TT: 07/28/25 1424 Editor House Organ: Procedure Note Donotuseinterpreter, Image - 07/28/[address] [address] Fluoroscopy Report Signed Patient: Sridevi Pruitt IMR#: [id number] : 1960cct:[id number] Age/Sex: 65 / FADM Date: 07/28/25 Loc: HO.S3 354-[address]: Dex Silva MD Ordering Physician: Arya Gutierrez MD Date of Service: 07/28/25 Procedure(s): FL guidance in OR Accession Number(s): [id number] cc: Libra Barone MD; Arya Gutierrez MD [...] 07/28/25 1445 DD/ 1353 TD/TT: 07/28/25 1424 Editor House Organ: [facility] External Provider IMG IR PROCEDURES Final Result * CT Abdomen Pelvis w/ Contrast (07/28/2025 4:28 AM EDT) Only the most recent of2 resultswithin the time period is included. Anatomical Region Laterality Modality Body, Pelvis, Abdomen Computed T omography 07/28/2025 4:28 AM EDT Narrative 07/28/2025 4:30 AM EDT [place] [address] CT Scan Report Signed Patient: Sridevi Pruitt I MR#: [id number] : 1960 Acct:[id number] Age/Sex: 65 / F ADM Date: 07/27/25 Loc: .ED Attending Dr: Ordering Physician: Lester Santos Date of Service: 07/28/25 Procedure(s): CT abdomen pelvis w IV con Accession Number(s): [id number] cc: Libra Barone MD; Lester Santos Report Number: [id number]: Total DLP = 598.00 mGy-cm Reason for [...] in OV> 07/28/25428 DD/ 7 TD/TT: 07/28/25427 Editor House Organ: Procedure Note Donotuseinterpreter, Image - 07/28/[address] [place] [address] [address] Scan Report Signed Patient: Sridevi Pruitt [facility]#: [id number] : 9Acct:[id number] Age/Sex: 65 / FADM Date: 07/27/25 Loc: HO.ED Attending Dr: Ordering Physician: Lester Santos Date of Service: 07/28/25 Procedure(s): CT abdomen pelvis w IV con Accession Number(s): [id number] cc: Libra Barone MD; Lester Santos Report Number: [id number]: Total DLP = 598.00 mGy-cm Reason for [...] MD, PHD on 07/28/2025 04:28:34 Dictated By: lOeg Marie MD Signed By: <Electronically signed by Oleg Marie MD in OV> 07/28/25428 DD/ 7 TD/TT: 07/28/25427 Editor House Organ: [facility] External Provider IMG CT PROCEDURES Edited Result - Final * (ABNORMAL) Urinalysis, Complete, with Reflex to Culture (07/27/2025 11:13 PM EDT) Only the most recent of2 resultswithin the time period is included. Color Urine Dark Yellow [facility] Appearance Urine Clear [facility] PH 7.0 5.0 - 9.0 [facility] Glucose Urine UA Negative Negative mg/dL [facility] Urine Blood Negative Negative [facility] Specific [place] - Urine 1.010 1.005 - 1.025 [facility] Urine Protein Negative Neg-Trace mg/dL [facility] Urine Ketones Negative Negative mg/dL [facility] Nitrite Urine Negative Negative [facility] Leukocyte Esterase Urine Small (1+)(A) Negative [facility] RBC Urine 0-2 0 - 2 /HPF [facility] Urine WBC 6-10(A) 0 - 5 /HPF [facility] Urine Squamous Epithelial Cell 6-10 0 - 2 /HPF [facility] Urine Bacteria None Seen None Seen [facility] Hyaline Casts, Urine 0-2 0 - 2 /LPF [facility] 07/27/2025 11:1 3 PM EDT 07/27/2025 11:17 PM EDT Narrative [facility] - 07/27/2025 11:46 PM EDT [id number], Clean Catch us Generic External Data Provider LAB URINE ORDERAB LES Final Result [facility] [address] [place] [address] [phone] * (ABNORMAL) CBC auto differential (07/27/2025 8:47 PM EDT) Only the most recent of3 resultswithin the time period is included. White Blood Count 9.0 4.8 - 10.8 X10*3/uL [facility] Red Blood Count 4.60 4.20 - 5.50 X10*6/uL [facility] Hemoglobin 13.7 12.0 - 16.0 g/dl [facility] Hematocrit 40.7 37.0 - 47.0 % [facility] Mean Corpuscular Volume 88.5 80.0 - 98.0 fL [facility] Mean Corpuscular Hemoglobin 29.8 27.0 - 33.0 pg [facility] Mean Corpuscular HGB Conc 33.7 31.0 - 35.0 g/dl [facility] Red Cell Distribution Width 15.3 11.0 - 16.0 % [facility] Platelet Count 328 160 - 400 X10*3/uL [facility] Mean Platelet Volume 10.6 9.4 - 12.3 fL [facility] Neutrophils Percent Auto 62.7 45 - 73 % [facility] Imm Gran Pct Auto 0.7(H) 0.0 - 0.4 % [facility] Lymphocytes Percent Auto 27.3 20 - 40 % [facility] Monocytes Percent Auto 6.6 2 - 11 % [facility] Eosinophils Percent Auto 2.1 0 - 4 % [facility] Basophils Percent Auto 0.6 0 - 2 % [facility] NRBC Pct Auto 0.0 0.0 - 0.2 /100WBC [facility] Neutrophils Absolute Auto 5.7 2.0 - 8.3 x10*3/uL [facility] Imm Gran Abs Auto 0.06(H) 0.00 - 0.03 X10*3/uL [facility] Lymphocytes Absolute Auto 2.5 1.2 - 4.9 X10*3/uL [facility] Monocytes Absolute Auto 0.6 0.1 - 1.2 X10*3/uL [facility] Eosinophils Absolute Auto 0.2 0.0 - 0.4 X10*3/uL [facility] Basophils Absolute Auto 0.1 0.0 - 0.2 X10*3/uL [facility] NRBC Abs Auto 0.000 0.0 - 0.012 X10*3/uL [facility] 07/27/2025 8:47 PM EDT 07/27/2025 8:50 PM EDT us Generic External Data Provider LAB BLOOD ORDERAB LES Final Result [facility] [address] [place] [phone] * (ABNORMAL) Lipase (07/27/2025 8:47 PM EDT) Only the most recent of3 resultswithin the time period is included. Lipase 397(H) 8 - 78 U/L [facility] 07/27/2025 8:47 PM EDT 07/27/2025 8:50 PM EDT us Generic External Data Provider LAB BLOOD ORDERAB LES Final Result Performing Organization Address [facility] Co de Phone Number [facility] [address] [place] [address] [phone] * (ABNORMAL) Hepatic Function Panel (07/27/2025 8:47 PM EDT) Only the most recent of2 resultswithin the time period is included. Bilirubin, Total 2.1(H) 0.0 - 1.0 mg/dL [facility] Bilirubin, Direct 1.6(H) 0.0 - 0.5 mg/dL [facility] Aspartate Amino Transferase 331(H) 5 - 31 U/L [facility] Alanine Aminotransferase 324(H) 0 - 31 U/L [facility] Total Protein 7.0 6.5 - 8.0 g/dL [facility] Albumin Level 4.1 3.5 - 5.0 g/dL [facility] Alkaline Phosphatase 733(H) 39 - 117 U/L [facility] 07/27/2025 8:47 PM EDT 07/27/2025 8:50 PM EDT Generic External Data Provider LAB BLOOD ORDERAB LES Final Result Performing Organization Address [facility] Co de Phone Number [facility] [address] [place] [phone] * (ABNORMAL) Basic Metabolic Panel (07/27/2025 8:47 PM EDT) Only the most recent of2 resultswithin the time period is included. Sodium 140 135 - 145 mmol/L [facility] Potassium 4.2 3.3 - 5.1 mmol/L [facility] Chloride 103 96 - 108 mmol/L [facility] Carbon Dioxide 29 22 - 29 mmol/L [facility] Anion Gap 12 12 - 20 [facility] Urea Nitrogen (BUN) 13 9 - 16 mg/dL [facility] Creatinine, Serum 0.75 0.5 - 1.4 mg/dL [facility] Creatinine Clr Calc Pharmacy 72.4 [facility] Comment:Provided height and weight: 157.48 cm,80.4 kg.eGFR (calculated from the MDRD study equation) and eCrCl(calculated from the Cockcroft-Gault equation) are based ondifferent parameters and may not yield comparable results.If eCrCl result is absurd, please check patient'sheight/weight. Estimated Glomerular Filt Rate >60 [facility] Comment:Chronic Kidney Disea se: Estimated GFR < 60 mL/min/1.39n1Bjrfbc Kidney Disease: Estimated GFR < 15 mL/min/1.73m2 Glucose 151(H) 60 - 115 mg/dL [facility] Calcium 9.3 8.4 - 10.2 mg/dL [facility] 07/27/2025 8:47 PM EDT 07/27/2025 8:50 PM EDT us Generic External Data Provider LAB BLOOD ORDERAB LES Final Result [facility] [address] [place] [phone] * MR MRCP (07/22/2025 10:17 AM EDT) Anatomical Region Laterality Modality Lower Extremities Left Magnetic Reson ance 07/22/2025 10:1 7 AM EDT Narrative 07/22/2025 10:19 AM EDT [address] [address] Magnetic Resonance Report Signed Patient: Sridevi Pruitt I MR#: [id number] 2336 : 1960 Acct:[id number] Age/Sex: 65 / F ADM Date: 07/22/25 Loc: HO.S3 346-[address]: Savanah Vega MD Ordering Physician: Savanah Vega MD Date of Service: 07/22/25 Procedure(s): MR MRCP Accession Number(s): [id number] cc: Libra Barone MD; Savanah Vega MD [...] 07/22/25 1018 DD/ 1017 TD/TT: 07/22/25 1017 Editor House Organ: Procedure Note Donotuseinterpreter, Image - 07/22/2025 [place] [address] Magnetic Resonance Report Signed Patient: Sridevi Pruitt IMR#: [id number] 2336 : 9Acct:[id number] Age/Sex: 65 / FADM Date: 07/22/25 Loc: .S3 346-[address]: Savanah Vega MD Ordering Physician: Savanah Vega MD Date of Service: 07/22/25 Procedure(s): MR MRCP Accession Number(s): [id number] cc: Libra Barone MD; Savanah Vega MD [...] 07/22/25 1018 DD/ 1017 TD/TT: 07/22/25 1017 Editor House Organ: [facility] External Provider IMG MRI PROCEDURES Final Result * US Abdomen Limited (07/21/2025 11:46 PM EDT) Only the most recent of2 resultswithin the time period is included. Anatomical Region Laterality Modality Abdomen Ultrasound 07/21/2025 11:4 6 PM EDT Narrative 07/21/2025 11:48 PM EDT [place] [address] Ultrasound Report Signed Patient: Sridevi Pruitt I MR#: [id number] 2336 : 1960 Acct:[id number] Age/Sex: 65 / F ADM Date: 07/21/25 Loc: HO.ED Attending Dr: Ordering Physician: Noel Ch MD Date of Service: 07/21/25 Procedure(s): US abdomen limited Accession Number(s): [id number] cc: Libra Barone MD; Noel Ch MD [...] in OV> 07/21/252346 DD/ 45 TD/TT: 07/21/252345 Editor House Organ: Procedure Note Donotuseinterpreter, Image - 07/21/2025 [place] [address] Ultrasound Report Signed Patient: Sridevi Pruitt IMR#: [id number] 2336 : 9Acct:[id number] Age/Sex: 65 / FADM Date: 07/21/25 Loc: HO.ED Attending Dr: Ordering Physician: Noel Ch MD Date of Service: 07/21/25 Procedure(s): US abdomen limited Accession Number(s): [id number] cc: Libra Barone MD; Noel Ch MD [...] in OV> 07/21/252346 DD/ 45 TD/TT: 07/21/252345 Editor House Organ: us [facility] External Provider IMG US PROCEDURES Edited Result - Final * Partial Thromboplastin Time, Activated (APTT) (07/21/2025 9:11 PM EDT) Partial Thromboplastin Time 28.8 26.7 - 34.1 SEC [facility] 07/21/2025 9:11 PM EDT 07/21/2025 9:19 PM EDT Generic External Data Provider LAB BLOOD ORDERAB LES Final Result [facility] [address] [place] [phone] * Prothrombin Time-INR (07/21/2025 9:11 PM EDT) Prothrombin Time 11.9 10.9 - 12.4 SEC [facility] INTERNATIONAL NORM RATIO 1.0 0.9 - 1.1 [facility] Comment:INTERNATIONAL NORMAL IZED RATIO (INR) REFERENCE [...] Provider LAB BLOOD ORDERAB LES Final Result [facility] [address] [place] [phone] * XR KUB and Upright 2 Views (07/21/2025 8:11 PM EDT) Anatomical Region Laterality Modality Radiographic Courtney ging 07/21/2025 8:11 PM EDT Narrative 07/21/2025 8:13 PM EDT [place] [address] XRay Report Signed Patient: Sridevi Pruitt I MR#: [id number] 2336 : 1960 Acct:[id number] Age/Sex: 65 / F ADM Date: 07/21/25 Loc: HO.ED Attending Dr: Ordering Physician: Lester Santos Date of Service: 07/21/25 Procedure(s): XR KUB Accession Number(s): [id number] cc: Libra Barone MD; Lester Santos CLINICAL [...] in OV> 07/21/252011 DD/ 10 TD/TT: 07/21/252010 Editor House Organ: Procedure Note Donotuseinterpreter, Image - 07/21/[address] [address] XRay Report Signed Patient: Sridevi Pruitt [facility]#: [id number] 2336 : 9Acct:[id number] Age/Sex: 65 / FADM Date: 07/21/25 Loc: HO.ED Attending Dr: Ordering Physician: Lester Santos Date of Service: 07/21/25 Procedure(s): XR KUB Accession Number(s): [id number] cc: Libra Barone MD; Lester Santos CLINICAL [...] in OV> 07/21/252011 DD/ 10 TD/TT: 07/21/252010 Editor House Organ: [facility] External Provider IMG XR PROCEDURES Final Result * (ABNORMAL) Comprehensive Metabolic Panel (07/21/2025 7:40 PM EDT) Sodium 142 135 - 145 mmol/L [facility] Potassium 4.2 3.3 - 5.1 mmol/L [facility] Chloride 104 96 - 108 mmol/L [facility] Carbon Dioxide 27 22 - 29 mmol/L [facility] Anion Gap 15 12 - 20 [facility] Urea Nitrogen (BUN) 12 9 - 16 mg/dL [facility] Creatinine, Serum 0.66 0.5 - 1.4 mg/dL [facility] Creatinine Clr Calc Pharmacy 84.2 [facility] Comment:Provided height and weight: 157.48 cm,83.915 kg.eGFR (calculated from the MDRD study equation) and eCrCl(calculated from the Cockcroft-Gault equation) are based ondifferent parameters and may not yield comparable results.If eCrCl result is absurd, please check patient'sheight/weight. Estimated Glomerular Filt Rate >60 [facility] Comment:Chronic Kidney Disea se: Estimated GFR < 60 mL/min/1.25v2Besssk Kidney Disease: Estimated GFR < 15 mL/min/1.73m2 Glucose 166(H) 60 - 115 mg/dL [facility] Calcium 9.6 8.4 - 10.2 mg/dL [facility] Bilirubin, Total 2.2(H) 0.0 - 1.0 mg/dL [facility] Aspartate Amino Transferase 1,210(H) 5 - 31 U/L [facility] Alanine Aminotransferase 892(H) 0 - 31 U/L [facility] Total Protein 7.1 6.5 - 8.0 g/dL [facility] Albumin Level 4.2 3.5 - 5.0 g/dL [facility] Alkaline Phosphatase 377(H) 39 - 117 U/L [facility] 07/21/2025 7:40 PM EDT 07/21/2025 7:43 PM EDT us Generic External Data Provider LAB BLOOD ORDERAB LES Final Result [facility] [address] [place] [phone] * (ABNORMAL) Urinalysis w/reflex microscopic (07/18/2025 10:05 AM EDT) Color Urine Yellow [facility] Appearance Urine Clear [facility] PH 5.5 5.0 - 9.0 [facility] Glucose Urine UA Negative Negative mg/dL [facility] Urine Blood Trace(A) Negative [facility] Specific [place] - Urine 1.025 1.005 - 1.025 [facility] Urine Protein Negative Neg-Trace mg/dL [facility] Urine Ketones Negative Negative mg/dL [facility] Nitrite Urine Negative Negative [facility] Leukocyte Esterase Urine Negative Negative [facility] 07/18/2025 10:0 5 AM EDT 07/18/2025 10:08 AM EDT Narrative [facility] - 07/18/2025 10:14 AM EDT Urine, Clean Catch us Generic External Data Provider LAB URINE ORDERAB LES Final Result Performing Organization Address [facility] de Phone Number [facility] [address] [place] [phone] * High Sensitivity Troponin I (07/18/2025 7:55 AM EDT) Pathologist [facility] TROPONIN I HIGH SENSITIVITY <2.7 <3.5 - 17.0 ng/L [facility] Comment:The Jacinto high sens itivity Troponin-I results should beused in conjunction with other diagnostic information suchas ECG, clinical observations and information, and patientsymptoms to aid in the diagnosis of [place]. 07/18/2025 7:55 AM EDT 07/18/2025 8:42 AM EDT Generic External Data Provider LAB BLOOD ORDERAB LES Final Result Performing Organization Address [facility] Phone Number [facility] [address] [place] [phone] * US Extremity Non Vascular Left Limited (06/26/2025 1:09 PM EDT) Anatomical Region Laterality Modality Ultrasound 06/26/2025 1:09 PM EDT Narrative 06/26/2025 1:30 PM EDT [address] [address] Ultrasound Report Signed Patient: Sridevi Pruitt I MR#: [id number] 2336 : 1960 Acct:[id number] Age/Sex: 65 / F ADM Date: 06/26/25 Loc: HO.US Attending Dr: Libra Barone MD Ordering Physician: Libra Barone MD Date of Service: 06/26/25 Procedure(s): US Extremity Nonvas Limited LT Accession Number(s): [id number] cc: Libra Barone MD Exam:US Extremity Nonvas [...] 06/26/25 1327 DD/ 1309 TD/TT: 06/26/25 1312 Editor House Organ: Procedure Note Donotuseinterpreter, Image - 06/26/2025 [place] [address] Ultrasound Report Signed Patient: Sridevi Pruitt IMR#: [id number] 2336 : 9Acct:[id number] Age/Sex: 65 / FADM Date: 06/26/25 Loc: . Attending Dr: Libra Barone MD Ordering Physician: Libra Barone MD Date of Service: 06/26/25 Procedure(s): US Extremity Nonvas Limited LT Accession Number(s): [id number] cc: Libra Barone MD Exam:US Extremity Nonvas [...] MD Signed By: <Electronically signed by Arturo Pimetnel MD in OV> 06/26/25 1327 DD/ 1309 TD/TT: 06/26/25 1312 Editor House Organ: us Libra Barone MD IMG US PROCEDURES Final Re sult * BI Mammogram Diagnostic Tomosynthesis Bilateral (05/18/2025 1:30 PM EDT) Anatomical Region Laterality Modality Breast Bilateral Mammography 05/18/2025 1:30 PM EDT Narrative 05/18/2025 2:45 PM EDT [facility]'[address] [place] [address] Mammography Report Signed Patient: Sridevi Pruitt I MR#: [id number] 2336 : 1960 Acct:[id number] Age/Sex: 64 / F ADM Date: 05/18/25 Loc: HO.MAMMO Attending Dr: Sue Coats MD Ordering Physician: Sue Coats MD Results: 2Be nign Findings Date of Service: 05/18/25 Follow Up: 1 Year From [facility] Mammogram Procedure(s): MM tomosynthesis diagnostic BI Accession Number(s): [id number] cc: Libra Barone MD; Sue Coats MD [...] clip from previous needle core biopsy. Left: Shawnee marker in the lower inner left breast [...] 05/18/25 1443 DD/ 1330 TD/TT: 05/18/25 1358 Editor House Organ: Procedure Note Donotuseinterpreter, Image - 05/18/2025 [facility] [address] [place] [address] Mammography Report Signed Patient: Sridevi Pruitt IMR#: [id number] 2336 : 9Acct:[id number] Age/Sex: 64 / FADM Date: 05/18/25 Loc: MOIO Attending Dr: Sue Coats MD Ordering Physician: Sue Coats MDResults: 2Be nign Findings Date of Service: 05/18/25Follow Up: 1 Year From Orig ina Mammogram Procedure(s): MM tomosynthesis diagnostic BI Accession Number(s): [id number] cc: Libra Barone MD; Sue Coats MD [...] clip from previous needle core biopsy. Left: [place] marker in the lower inner left breast [...] 05/18/25 1443 DD/ 1330 TD/TT: 05/18/25 1358 Editor House Organ: us Sue Coats MD IMG BI PROCEDURES Final Result * BI US Breast Limited Left (05/18/2025 1:23 PM EDT) Anatomical Region Laterality Modality Breast Left Ultrasound 05/18/2025 1:23 PM EDT Narrative 05/18/2025 2:45 PM EDT [facility] [address] [place], [place] [address] Ultrasound Report Signed Patient: Sridevi Pruitt I MR#: [id number] 2336 : 1960 Acct:[id number] Age/Sex: 64 / F ADM Date: 05/18/25 Loc: HO.MAMMO Attending Dr: Sue Coats MD Ordering Physician: Sue Coats MD Date of Service: 05/18/25 Procedure(s): US breast LT limited mamm only Accession Number(s): [id number] cc: Libra Barone MD; Sue Coats MD [...] clip from previous needle core biopsy. Left: [place] marker in the lower inner left breast [...] 05/18/25 1443 DD/ 1323 TD/TT: 05/18/25 1422 Editor House Organ: Procedure Note Donotuseinterpreter, Image - 05/18/2025 [facility] [address] [place], [place] [address] Ultrasound Report Signed Patient: Sridevi Pruitt [facility]#: [id number] 2336 : 9Acct:[id number] Age/Sex: 64 / FADM Date: 05/18/25 Loc: HO.MAMMO Attending Dr: Sue Coats MD Ordering Physician: Sue Coats MD Date of Service: 05/18/25 Procedure(s): US breast LT limited mamm only Accession Number(s): [id number] cc: Libra Barone MD; Sue Coats MD [...] clip from previous needle core biopsy. Left: [place] marker in the lower inner left breast [...] 05/18/25 1443 DD/ 1323 TD/TT: 05/18/25 1422 Editor House Organ: us Sue Coats MD IMG US PROCEDURES Final Result * Albumin, Random Urine W/Creatinine (04/18/2025 8:51 AM EDT) Creatinine, Urine 214.51 mg/dL [facility] Microalbumin Urine 16.0 mg/L [facility] Microalbum Creatinine Ratio Ur 7.4 <30 ug/mg cr [facility] Comment:Albumin/Creatinine R atio Reference Ranges: Normal: < 30 ug/mg creatinine Microalbuminuria: 30 - 300 ug/mg creatinineClinical Albuminuria: > 300 ug/mg creatinine Urine 04/18/2025 8:51 AM EDT 04/18/2025 11:06 AM EDT us Libra Barone MD LAB URINE ORDERABLES Final Result [facility] [address] [place] [phone] * Lipid Panel, Standard (04/18/2025 8:51 AM EDT) Triglycerides 61 <150 mg/dL [facility] Comment:Desirable Triglyceri de: less than 150 mg/dLBorderline High Triglyceride 150-199 mg/dLHigh Triglyceride: 200-499 mg/dLVery High Triglyceride: greater than or equal to 5OO mg/dL Cholesterol 144 <200 mg/dL [facility] Comment:Desirable Cholestero l: less than 200 mg/dLBorderline High Cholesterol: 200-239 mg/dLHigh Cholesterol: greater than 239 mg/dL LDL Cholesterol Calculated 79 <100 mg/dL [facility] Comment:Desirable LDL: less than 100 mg/dLNear Optimal/Above Optimal LDL: 110- 129 mg/dLBorderline High LDL: 130-159 mg/dLHigh LDL: 160-189 mg/dLVery High LDL: greater than or equal to 190 mg/dL HDL Cholesterol 53 >40 mg/dL [facility] Comment:Desirable HDL: great er than 40 mg/dL Note: This HDL assay may give artificially low results in patients with liver disease. Blood Venous blood specimen / Unknown 04/18/2025 8:51 AM EDT 04/18/2025 11:06 AM EDT Libra Barone MD LAB BLOOD ORDERABLES Final Result [facility] [address] [place] [phone] * ThinPrep Imaging Pap and HPV mRNA E6/E7 with Reflex to HPV 16,18/45 (06/21/2024 9:52 AM EDT) HPV 16 RNA [facility] HPV 18/45 RNA [facility] HPV nRNA E6/E7 Not Detected Not Detected [facility] Comment:Methodology: Transcr iption-Mediated AmplificationThis assay detects E6/E7 viral messenger RNA (mRNA) from 14high-risk HPV types (16,18,31,33,35,39,45,51,52,56,58,59,66,68).Cervical sources are required for HPV testing.If a vaginal source from a patient who has had atotal hysterectomy with removal of cervix wassubmitted, please contact the testing laboratoryfor alternative testing options.For additional information, please refer tohttp://education.[employer]/faq/SBT311o4(This link if provided for information/educational purposes only.)THIS TEST WAS PERFORMED AT:[facility] [place] [phone] KHAN MD SOURCE: SEE NOTE [facility] Comment:Cervix Report Status: [facility] Clinical Information: SEE NOTE [facility] Comment:ROUTINE LMP: SEE NOTE [facility] Comment:PM Prev. PAP: SEE NOTE [facility] Comment:06/05/22 Prev. BX: SEE NOTE [facility] Comment:NONE GIVEN Statement Of Adequacy: SEE NOTE [facility] Comment:SATISFACTORY FOR GHAZAL CORONA General Categorization: [facility] Interpretation/Result: SEE NOTE [facility] Comment:Cytology Results: Ne gative for intraepitheliallesion or malignancy.Atrophic pattern; predominantly parabasal cells Cytology Comment SEE NOTE [facility] Comment:This Pap test has be en evaluated with computerassisted technology. Performance Improvement Coordinator: SEE NOTE [facility] Comment:BK,CT(ASCP)CT screen ing location: [address] Review Performance Improvement Coordinator: [facility] Pathologist [facility] PAP Infection [facility] See Note SEE NOTE [facility] Comment:EXPLANATORY NOTE:The Pap is a screening test for cervical cancer. It isnot a diagnostic test and is subject to false negativeand false positive results. It is most reliable when asatisfactory sample, regularly obtained, is submittedwith relevant clinical findings and history, and whenthe Pap result is evaluated along with historic andcurrent clinical information. 06/21/2024 9:52 AM EDT 06/21/2024 2:35 PM EDT Narrative [facility] - 06/23/2024 12:57 PM EDT SEE SCANNED RESULTS IN EMRWas previous PAP abnormal? YesIf PAP abnormal, please specify: hpv +Clinical Information: RoutineCollection Date: 06/21/24LMP: postmenopausalDate of previous PAP 06/05/22Performed by: : Cervical us Generic External Data Provider LAB PATHOLOGY ORD ERABLES Final Result [facility] [address] [place] [phone] * Hepatitis Panel, General (07/22/2023 1:58 PM EDT) Hepatitis A IgM Nonreactive Nonreactive [facility] Comment:IgM antibodies to WOLF V not detected; does not exclude earlyacute or recovered HAV infection. ~Hepatitis B Surface Antibody REACTIVE Nonreactive [facility] Comment:REACTIVE: > 11.99 mI U/mL Hepatitis B Core Antibody Nonreactive Nonreactive [facility] Hepatitis C Antibody Nonreactive Nonreactive [facility] Comment:Antibodies to HCV no t detected; does not exclude early acuteHCV infection. Hepatitis B Surface Ag Negative Negative [facility] 07/22/2023 1:58 PM EDT 07/22/2023 1:59 PM EDT [facility] External Provider LAB BLO OD ORDERABLES Final Result [facility] [address] [place] [phone] * Hm Colonoscopy (12/01/2022 12:16 PM EST) Historical Provider MD HEALTH MAINTENANCE Final Result from Last 3 Months or Most Recently Relevant to Health Maintenance Insurance [facility] (HMO D-SNP) [facility] - [facility] Care Teams Fabrication Department Supervisor Relationship Specialty Start Date End Date Ripon, MD Libra [address] [place] [phone] PCP - General Family Medicine 11/23/18 Malu Medina, PharmD [address] [place] [phone] Pharmacist Internal Medicine 05/09/24 Tamie Vega OD [address] [place] [phone] Optometry 02/16/[address] [place] [address] Gastroenterology 04/20/25 Dr. Suero [facility] Psychiatry 08/09/25
--- OUTSIDE RECORDS SUMMARY | 2025-08-09 11:10 | XMS_ITS | Encounter Summary ---
Author Organization [employer] Address [address] [facility] [address] [place] [address] Care Team Providers Care Mechanic Welder Name Role Phone Libra Barone MD Primary Care Provider [phone] Malu Medina PharmD Unavailable [phone] Gary, Tamie OD Unavailable [phone] February Unavailable Reason for Visit * Reason Onset Date Comments Appointment Request 01/02/2025 Encounter Details Date Type Department Care Team ([facility] st Contact Info) Description 01/02/2025 Telephone [facility] [address] [place], [place] [phone] Libra Barone MD [address] [place], [place] [phone] Appointment Request Social History Tobacco Use Types [...] Description 08/15/2025 3:30 PM EDT Medication Management [facility] [address] [place] [address] Malu Medina PharmD [address] [place] [address] documented as of this encounter Goals Goal Patient Goal Type Associated Problems Recent Progress Patient-Stated? Author Blood Pressure < 140/90 Blood Pressure 130/79(2024 9:09 AM EDT) No Malu Mckinnon, PharmD Hemoglobin A1c < 7 Result Component 7(08/09/2025 9:12 AM EDT) No Malu Mckinnon, PharmD documented as of this encounter Visit Diagnoses Not on filedocumented in this encounter Additional Health Concerns Assessment Noted Time PHQ-9 Depression Total Score: 0 04/20/20 24 3:44 PM EDT documented as of this encounter Care Teams Mechanic Welder Relationship Specialty Start Date End Date Libra Barone MD [address] [place] [address] PCP - General Family Medicine 11/23/18 Malu Medina, PharmD [address] [place] [address] Pharmacist Internal Medicine 05/09/24 Tamie Vega OD [address] [place] [phone] Optometry 02/16/25February [address] [place] [address] [address] [place] [address] Gastroenterology 04/20/25 Dr. Nimo Sellers Psychiatry 08/09/25 documented as of this encounter
[2025-08-09 11:55] LABS: Alanine Aminotransferase 26 U/L (0-31); Albumin Level 4.2 g/dL (3.5-5.0); Alkaline Phosphatase 171 U/L (39-117); Aspartate Amino Transferase 21 U/L (5-31); Total Protein 6.7 g/dL (6.5-8.0)
[2025-08-09 12:03] LABS: Microalbum/Creatinine Ratio Ur 12.4 ug/mg cr (<30)
== END 2025-08-09 09:29 | disposition home or self-care (01) ==
LOC: HO.HHCL 09:28
PROVIDERS: PCP Family Medicine; Visit Provider Family Medicine
DX: E11.9 Type 2 diabetes mellitus without complications (principal); R74.01 Elevation of levels of liver transaminase levels
CPT/HCPCS: 36415; 80076; 82043; 82570

== ENCOUNTER 2025-08-29 15:17 | Outpatient (REF) | payer OTHER, SELFPAY ==
--- NOTE | ~2025-08-29 | XR_ITS ---
EXAMINATION: XR CHEST CLINICAL INFORMATION: rhoncus on auscuultation COMPARISON: 11/14/2024 TECHNIQUE: 2 views of the chest were obtained. FINDINGS: The cardiac, hilar, and mediastinal contours are normal. The lungs are clear bilaterally. Mildly hyperaerated, however clear bilaterally. There is no focal osseous or soft tissue abnormality. XR/XR chest 2V IMPRESSION: No active pulmonary disease. Electronically signed by: Yonis Wolfe MD 08/29/2025 04:08 PM EDT
--- OUTSIDE RECORDS SUMMARY | 2025-08-29 15:00 | XMS_ITS | Encounter Summary ---
Author Organization [employer] Address [address] [place] [address] Care Team Providers Care Collector Of Port Name Role Phone Libra Barone MD Primary Care Provider + [phone] Malu Medina PharmD Unavailable Tamie Vega OD Unavailable [phone] February Unavailable Encounter Details Date Type Department Care Team ([facility] st Contact Info) Description 08/29/2025 3:00 PM EDT Office Visit [facility] [address] [place], [place] [phone] Ivana Fernando MD [address] [place] [address] Bronchitis (Primary Dx) Social History Tobacco Use Types [...] Sign Reading Time Taken Comments Blood Pressure 149/75 08/29/2025 2:40 PM EDT Pulse 59 08/29/2025 2:40 PM EDT Temperature 36.1 C (97 F) 08/29/2025 2:40 PM EDT Respiratory Rate 16 08/29/2025 2:40 PM EDT Oxygen Saturation 97% 08/29/2025 2:40 PM EDT Inhaled Oxygen Concentration - - Weight 80.7 kg (178 lb) 08/29/2025 2:40 PM EDT Height 157.5 cm (5' 2 ) 08/29/2025 2:40 PM EDT Body Mass Index 32.56 08/29/2025 2:40 PM EDT documented in this encounter Progress Notes * Ivana Beltran MD - 08/29/2025 3:00 PM EDT SUBJECTIVE: Sridevi Pruitt is a 65 y.o. year old female who presents for acute visit . Acute Concerns: Patient reports 2 days of feeling sick with cough, body aches, headache, sore throat, denies sick contacts or recent travels Social History Social History Narrative Not on file Problem List[1] Pelvic pain Benign hypertension Chronic idiopathic constipation Depressive disorder Diabetes mellitus without complication (HCC) History of diverticulitis HPV in female Hypothyroidism Recurrent major depression in partial remission (CMS/HCC) Tubular adenoma Tobacco dependence with current use Delayed gastric emptying Hemorrhoids Leiomyoma Other specified health status Abdominal pain Transaminitis Pain in both knees Chronic midline low back pain without sciatica Erosive gastritis Bilateral hearing loss History of postmenopausal bleeding Left ankle sprain Osteopenia Asthma Mastalgia in female Oral herpes simplex infection Class 2 severe obesity due to excess calories with serious comorbidity and body mass index (BMI) of36.0 to 36.9 in adult Right upper quadrant abdominal pain Hx laparoscopic cholecystectomy Family History[2] Review of Systems Constitutional: Positive for chills and fatigue. Negative for activity change, appetite change, diaphoresis, fever and unexpected weight change. HENT: Positive for congestion and sore throat. Negative for dental problem, drooling, ear discharge, ear pain, facial swelling, hearing loss, mouth sores, nosebleeds, postnasal drip, rhinorrhea, sinus pressure, sinus pain, sneezing, tinnitus, trouble swallowing and voice change. Respiratory: Positive for cough. Negative for apnea, choking, chest tightness, shortness of breath,wheezing and stridor. Cardiovascular: Negative. OBJECTIVE: Vitals: 08/29/25 1440 BP: (!) 149/75 BP Location: Right arm Patient Position: Sitting BP Cuff Size: Adult Pulse: 59 Resp: 16 Temp: 97 ??F (36.1 ??C) TempSrc: Temporal SpO2: 97% Weight: 178 lb (80.7 kg) Height: 5' 2 (1.575 m) Physical Exam Constitutional: Appearance: Normal appearance. Cardiovascular: Rate and Rhythm: Normal rate and regular rhythm. Pulmonary: Effort: Pulmonary effort is normal. Breath sounds: Examination of the right-middle field reveals rhonchi. Examination of the right-lower field reveals rhonchi. Rhonchi present. Abdominal: General: Abdomen is flat. Palpations: Abdomen is soft. Musculoskeletal: Right lower leg: No edema. Left lower leg: No edema. Neurological: Mental Status: She is alert. Follow Up: No follow-ups on file. Medications Ordered Prior to Encounter[3] Problem List Items Addressed This Visit Bronchitis - Primary Relevant Medications predniSONE (Deltasone) 20 MG tablet azithromycin (Zithromax) 250 MG tablet Other Relevant Orders POCT Rapid Influenza B CUI ID NOW (Completed) POCT Rapid Influenza A CUI ID NOW (Completed) POCT Rapid Covid-19 BinaxNOW (Completed) XR Chest 2 Views (Completed) [1] Patient Active Problem List Diagnosis Pelvic pain Benign hypertension Chronic idiopathic constipation Depressive disorder Diabetes mellitus without complication (HCC) History of diverticulitis HPV in female Hypothyroidism Recurrent major depression in partial remission (CMS/HCC) Tubular adenoma Tobacco dependence with current use Delayed gastric emptying Hemorrhoids Leiomyoma Other specified health status Abdominal pain Transaminitis Pain in both knees Chronic midline low back pain without sciatica Bronchitis Erosive gastritis Bilateral hearing loss History of postmenopausal bleeding Left ankle sprain Osteopenia Asthma Mastalgia in female Oral herpes simplex infection Class 2 severe obesity due to excess calories with serious comorbidity and body mass index (BMI) of36.0 to 36.9 in adult Right upper quadrant abdominal pain Hx laparoscopic cholecystectomy Viral upper respiratory tract infection [2] Family History Problem Relation Name Age of Onset Brain cancer Mother Prostate cancer Father [3] Current Outpatient Medications on File Prior to Visit Medication Sig Dispense Refill acyclovir (Zovirax) 800 MG tablet TAKE 3 TABLETS BY MOUTH EVERY DAY FOR 2 DAYS 6 tablet 1 Alcohol Swabs (Alcohol Prep) 70 % pads USE DIRECTED TWICE DAILY 100 each 11 atenolol (Tenormin) 25 MG tablet TAKE 1 TABLET BY MOUTH EVERY MORNING 90 tablet 3 Blood Glucose Monitoring Suppl (FreeStyle Lite) w/Device kit 1 each 2 times daily. 1 kit 0 buPROPion XL (Wellbutrin XL) 150 MG 24 hr tablet Take 150 mg by mouth Once per day. Do not crush, chew, or split. buPROPion XL (Wellbutrin XL) 300 MG 24 hr tablet Take 300 mg by mouth Once per day. Do not crush, chew, or split. dicyclomine (Bentyl) 20 MG tablet Take by mouth before breakfast, before lunch, before evening meal, and at bedtime. fluticasone (Flonase) 50 MCG/ACT nasal spray Administer 2 sprays into each nostril Once per day. Shake gently. Before first use, prime pump. After use, clean tip and replace cap. 48 g 3 fluticasone furoate (Arnuity Ellipta) 100 MCG/ACT inhaler INHALE 1 PUFF BY MOUTH EVERY DAY AT THE SAME TIME. RINSE MOUTH AFTER USING. 30 each 11 FREESTYLE LITE test strip USE DIRECTED TO TEST BLOOD SUGAR TWICE DAILY 100 strip 11 levothyroxine (Synthroid, Levoxyl) 75 MCG tablet TAKE 1 TABLET BY MOUTH EVERY MORNING BEFORE BREAKFAST 90 tablet 3 metFORMIN XR (Glucophage-XR) 500 MG 24 hr tablet Take 1 tablet (500 mg) by mouth with evening meal.Do not crush, chew, or split. metoclopramide (Reglan) 10 MG tablet Take by mouth. pantoprazole (ProtoNix) 40 MG EC tablet Take 40 mg by mouth 2 times daily. Do not crush, chew, or split. rosuvastatin (Crestor) 20 MG tablet Take 1 tablet (20 mg) by mouth Once per day. 30 tablet 11 senna-docusate sodium (Senokot-S) 8.6-50 MG tablet Take 1 tablet by mouth Once per day. sertraline (Zoloft) 100 MG tablet Take by mouth. simethicone (Mylicon,Gas-X) 180 MG capsule Take 180 mg by mouth every 6 (six) hours if needed for flatulence. Spacer/Aero-Holding Chambers (Compact Space Chamber) device USE WITH INHALER EVERY 4 HOURS NEEDED (for asthma) 2 each 0 TRUEplus Lancets 33G misc USE DIRECTED TO TEST BLOOD SUGAR TWICE DAILY 100 each 11 valsartan (Diovan) 80 MG tablet Take 1 tablet (80 mg) by mouth Once per day. 90 tablet 1 Ventolin HFA 108 (90 Base) MCG/ACT inhaler INHALE 2 PUFFS BY MOUTH EVERY 4 HOURS NEEDED FOR WHEEZING OR SHORTNESS OF BREATH 18 g 1 [DISCONTINUED] valsartan (Diovan) 80 MG tablet Take 1 tablet (80 mg) by mouth Once per day. 90 tablet 3 No current facility-administered medications on file prior to visit. documented in this encounter Plan of Treatment Upcoming Encounters Date Type Department Care Team (Late st Contact Info) Description 10/10/2025 3:00 PM EST Medication Management [facility] [address] [place] [address] Malu Medina, PharmD [address] [place] [address] 11/08/2025 3:15 PM EST Office Visit [facility] [address] [place] [address] Libra Barone MD [address] [place] [address] documented as of this encounter Goals Goal Patient Goal Type Associated Problems Recent Progress Patient-Stated? Author Blood Pressure < 140/90 Blood Pressure 149/75(2024 2:40 PM EDT) No Malu Mckinnon PharmD Hemoglobin A1c < 7 Result Component 7(08/09/2025 9:12 AM EDT) No Malu Mckinnon PharmD documented as of this encounter Procedures Procedure Name Priority Date/Time Associated Diagnosis Comments XR CHEST 2 VIEWS Routine 08/29/2025 3:45 PM EDT Bronchitis POCT INFLUENZA B (ID NOW RAPID MOLECULAR) Routine 08/29/2025 3:21 PM EDT Bronchitis POCT INFLUENZA A (ID NOW RAPID MOLECULAR) Routine 08/29/2025 3:20 PM EDT Bronchitis POCT RAPID COVID ANTIGEN Routine 08/29/2025 3:20 PM EDT Bronchitis documented in this encounter Results * XR Chest 2 Views (08/29/2025 3:45 PM EDT) Anatomical Region Laterality Modality Chest Radiographic Courtney ging 08/29/2025 3:45 PM EDT Narrative 08/29/2025 4:10 PM EDT [address] [address] XRay Report Signed Patient: Sridevi Pruitt I MR#: [id number] : 1960 Acct:[id number] Age/Sex: 65 / F ADM Date: 08/29/25 Loc: .[facility] Attending Dr: Ivana Beltran MD Ordering Physician: Ivana Fernando MD Date of Service: 08/29/25 Procedure(s): XR chest 2V Accession Number(s): [id number] cc: Ivana Fernando MD Reason for Exam: rhoncus on auscuultation EXAMINATION: XR CHEST CLINICAL INFORMATION: rhoncus on auscuultation COMPARISON: 11/14/2024 TECHNIQUE: 2 views of the chest were obtained. FINDINGS: The cardiac, hilar, and mediastinal contours are normal. The lungs are clear bilaterally. Mildly hyperaerated, however clear bilaterally. There is no focal osseous or soft tissue abnormality. XR/XR chest 2V IMPRESSION: No active pulmonary disease. Electronically signed by: Yonis Wolfe MD 08/29/2025 04:08 PM EDT Dictated By: Yonis Wolfe MD Signed By: <Electronically signed by Yonis Wolfe MD in OV> 08/29/25 1608 DD/ 1545 TD/TT: 08/29/25 1546 Stable Manager: Procedure Note Donotuseinterpreter, Image - 08/29/2025 [place] [address] XRay Report Signed Patient: Sridevi Pruitt IMR#: [id number] : 9Acct:[id number] Age/Sex: 65 / FADM Date: 08/29/25 Loc: .[facility] Attending Dr: Ivana Beltran MD Ordering Physician: Ivana Fernando MD Date of Service: 08/29/25 Procedure(s): XR chest 2V Accession Number(s): [id number] cc: Ivana Fernando MD Reason for Exam: rhoncus on auscuultation EXAMINATION: XR CHEST CLINICAL INFORMATION: rhoncus on auscuultation COMPARISON: 11/14/2024 TECHNIQUE: 2 views of the chest were obtained. FINDINGS: The cardiac, hilar, and mediastinal contours are normal. The lungs are clear bilaterally. Mildly hyperaerated, however clear bilaterally. There is no focal osseous or soft tissue abnormality. XR/XR chest 2V IMPRESSION: No active pulmonary disease. Electronically signed by: Yonis Wolfe MD 08/29/2025 04:08 PM EDT RP Dictated By: Yonis Wolfe MD Signed By: <Electronically signed by Yonis Wolfe MD in OV> 08/29/25 1608 DD/ 1545 TD/TT: 08/29/25 1546 Stable Manager: us Ivana Beltran MD IMG XR PROCEDURES Fin al Result * POCT Rapid Influenza B CUI ID NOW (08/29/2025 3:21 PM EDT) Influenza B Negative Negative, Indeterminate [facility] QC Media Lot # [id number] [facility] Lot# Expiration Date [facility] Swab 08/29/2025 3:21 PM EDT us Ivana Beltran MD POINT OF CARE TEST EN TER/EDIT ORDERABLES Final Result [facility] [address] [place], [place] [phone] * POCT Rapid Covid-19 BinaxNOW (08/29/2025 3:20 PM EDT) Rapid COVID Ag Negative QC Media Lot # [id number] Lot# Expiration Date [id number] Swab 08/29/2025 3:20 PM EDT Ivana Beltran MD POINT OF CARE TEST EN TER/EDIT ORDERABLES Final Result * POCT Rapid Influenza A CUI ID NOW (08/29/2025 3:20 PM EDT) Influenza A Negative Negative, Indeterminate [facility] QC Media Lot # [id number] [facility] Lot# Expiration Date [facility] Swab 08/29/2025 3:20 PM EDT Ivana Beltran MD POINT OF CARE TEST EN TER/EDIT ORDERABLES Final Result [facility] [address] [place] [address] [phone] documented in this encounter Visit Diagnoses Diagnosis Bronchitis- Primary Bronchitis, not specified as acute or chronic documented in this encounter Additional Health Concerns Assessment Noted Time PHQ-9 Depression Total Score: 6 08/09/20 25 9:10 AM EDT documented as of this encounter Care Teams Collector Of Port Relationship Specialty Start Date End Date Libra Barone MD [address] [place] [phone] PCP - General Family Medicine 11/23/18 Malu Medina, LisaD [address] [place] [phone] Pharmacist Internal Medicine 05/09/24 Tamie Vega OD [address] [place] [phone] Optometry 02/16/25LaiFebruary [address] [place] [address] Drive 3rd [place] [address] Gastroenterology 04/20/25 Dr. Nimo Sellers Psychiatry 08/09/25 documented as of this encounter
--- OUTSIDE RECORDS SUMMARY | 2025-08-29 18:28 | XMS_ITS | Encounter Summary ---
Author Organization [employer] Address [address] [facility] [address] [place] [address] Care Team Providers Care Powder Line Repairer Name Role Phone Libra Barone MD Primary Care Provider + [phone] Malu Medina PharmD Unavailable Gary, Tamie OD Unavailable [phone] February Unavailable Reason for Visit * Reason Onset Date Comments Appointment Request 08/22/2024 Encounter Details Date Type Department Care Team ([facility] st Contact Info) Description 08/22/2024 Telephone [facility] [address] [place], [place] [phone] Libra Barone MD [address] [place], [place] [phone] Appointment Request Social History Tobacco Use Types [...] Description 10/10/2025 3:00 PM EST Medication Management [facility] [address] [place] [phone] Malu Medina, PharmD [address] [place] [phone] 11/08/2025 3:15 PM EST Office Visit [facility] [address] [place] [phone] Libra Barone MD [address] [place] [phone] documented as of this encounter Goals Goal Patient Goal Type Associated Problems Recent Progress Patient-Stated? Author Blood Pressure < 140/90 Blood Pressure 149/75(2024 2:40 PM EDT) No Malu Mckinnon PharmChel Hemoglobin A1c < 7 Result Component 7(08/09/2025 9:12 AM EDT) No Malu Mckinnon PharmD documented as of this encounter Visit Diagnoses Not on filedocumented in this encounter Additional Health Concerns Assessment Noted Time PHQ-9 Depression Total Score: 0 04/20/20 24 3:44 PM EDT documented as of this encounter Care Teams Powder Line Repairer Relationship Specialty Start Date End Date Libra Barone MD [address] [place] [address] PCP - General Family Medicine 11/23/18 Malu Medina PharmD [address] [place] [phone] Pharmacist Internal Medicine 05/09/24 Tamie Vega OD [address] [place] [phone] Optometry 02/16/25February [address] [place] [address] [address] [place] [address] Gastroenterology 04/20/25 Dr. Nimo Sellers Psychiatry 08/09/25 documented as of this encounter
--- OUTSIDE RECORDS SUMMARY | 2025-08-29 18:28 | XMS_ITS | Clinical Summary ---
Author Organization [employer] Address [address] [facility] [address] [place] [address] Care Team Providers Care Claim Specialist Name Role Phone Libra Barone MD Primary Care Provider [phone]- [phone] Malu Medina PharmD Unavailable Gary Tamie OD Unavailable [phone] Unavailable Allergies Active Allergy Reactions Criticality Noted Date Comments Hernan Inhibitors Cough 12/03/2022 Medications Spacer/Aero-Holdi ng Chambers (Compact Space Chamber) deviceIndications :Viral URI USE WITH INHALER EVERY 4 HOURS NEEDED (for asthma) 2 each 024 Active Ventolin HFA 108 (90 Base) MCG/ACT inhalerIndication s:Viral URI INHALE 2 PUFFS BY MOUTH EVERY 4 HOURS NEEDED FOR WHEEZING OR SHORTNESS OF BREATH 18 g 1 024 Active levothyroxine (Synthroid, Levoxyl) 75 MCG tabletIndications [...] 20 MG tabletIndications :Diabetes mellitus without complication (HCC) Take 1 tablet (20 mg) by mouth Once per day. 30 tablet 11 025 2025 Active acyclovir (Zovirax) 800 MG tabletIndications :Oral herpes simplex infection TAKE 3 TABLETS BY MOUTH EVERY DAY FOR 2 DAYS 6 tablet 1 Active fluticasone furoate (Arnuity Ellipta) 100 MCG/ACT inhalerIndication s:Mild intermittent asthma without complication INHALE 1 PUFF BY MOUTH EVERY DAY AT THE SAME TIME. RINSE MOUTH AFTER USING. 30 each Active Alcohol Swabs (Alcohol Prep) 70 % padsIndications:H igh blood sugar USE DIRECTED TWICE DAILY 100 each 025 Active atenolol (Tenormin) 25 MG tabletIndications :Benign hypertension TAKE 1 TABLET BY MOUTH EVERY MORNING 90 tablet 3 025 Active FREESTYLE LITE test stripIndications: Hyperglycemia, unspecified,Diabe nathaly mellitus without complication (HCC) USE DIRECTED TO TEST BLOOD SUGAR TWICE DAILY 100 strip Active TRUEplus Lancets 33G miscIndications:H yperglycemia, unspecified,Diabe nathaly mellitus without complication (HCC) USE DIRECTED TO TEST BLOOD SUGAR TWICE [...] unspecified type Take 40 mg by mouth 2 times daily. Do not crush, chew, or split. Active senna-docusate sodium (Senokot-S) 8.6-50 MG tabletIndications :Irritable bowel syndrome, unspecified type Take 1 tablet by mouth Once per day. Active sertraline (Zoloft) 100 MG tabletIndications :Depressive disorder Take by mouth. Activ e simethicone (Mylicon,Gas-X) 180 MG capsuleIndication s:Irritable bowel syndrome, unspecified type Take 180 mg by mouth every 6 (six) hours if needed for flatulence. Active Blood Glucose Monitoring Suppl (FreeStyle Lite) w/Device kitIndications:Di abetes mellitus without complication (HCC) 1 each 2 times daily. 1 kit 025 Active metFORMIN XR (Glucophage-XR) 500 MG 24 hr tabletIndications :Diabetes mellitus without complication (HCC) Take 1 tablet (500 mg) by mouth with evening meal. Do not crush, chew, or split. 025 Active valsartan (Diovan) 80 MG tabletIndications :Benign hypertension Take 1 tablet (80 mg) by mouth Once per day. 90 tablet 1 025 Active predniSONE (Deltasone) 20 MG tabletIndications :Bronchitis Take 2 tablets (40 mg) by mouth Once per day for 5 days. 10 tablet 025 2024 Active azithromycin (Zithromax) 250 MG tabletIndications :Bronchitis Take 2 tabs PO daily x 1d then 1 tab PO daily on D2 to D5 6 tablet 025 Active buPROPion XL (Wellbutrin XL) 300 MG [...] cleanup (will not trigger notification to Pharmacy)) valsartan (Diovan) 80 MG tabletIndications :Benign hypertension Take 1 tablet (80 mg) by mouth Once per day. 90 tablet 3 024 2024 Discontinued(R eorder (will not trigger notification to Pharmacy)) TRUEplus Lancets 33G miscIndications:H yperglycemia, unspecified,Diabe nathaly mellitus without complication (HCC) TEST BLOOD SUGAR TWICE DAILY 100 each 11 024 2024 Discontinued FREESTYLE LITE test stripIndications: Hyperglycemia, unspecified,Diabe nathaly mellitus without complication (HCC) TEST BLOOD SUGAR TWICE DAILY 100 strip 11 024 2024 Discontinued metFORMIN XR (Glucophage-XR) 500 MG 24 hr tabletIndications :Diabetes mellitus without complication (HCC) Take 1 tablet (500 mg) by mouth with breakfast and with evening meal. Do not crush, chew, or split. 180 tablet 3 025 2024 Discontinued(M ed list cleanup (will not trigger notification to Pharmacy)) clotrimazole (Lotrimin) 1 % creamIndications: Candidiasis Apply topically 2 times daily. 14 g 1 025 2024 Discontinued(T herapy completed) hydrocortisone 2.5 % cream APPLY 1 APPLICATION RECTALLY TWICE DAILY NEEDED FOR HEMORRHOIDS 025 2024 Discontinued dicyclomine (Bentyl) 20 MG tablet Take 1 tablet by mouth 3 times daily. 025 2024 Discontinued(M ed list cleanup (will not trigger notification to Pharmacy)) Active Problems Patient Care Coordination No te Formatting of this note migh t be different from the original. Enrolled in [facility] DM clinic with Malu Medina, PharmD, [facility] Problem Noted Date Diagnosed Date Viral upper respiratory tract infection 08/29/20 25 Hx laparoscopic cholecystectomy 08/09/2025 Overview (08/09/2025): [facility] [place]07[place] Abdominal US 07/18/25 showed gallstones/sludge, possibly early cholecystitis. Admitted to surgical service for further treatment of biliary colic. Patient elected to proceed with laparoscopic cholecystectomy. [facility] [place]07[place] Pt returned for evaluation s/p laparoscopic [...] advanced. Patient discharged home in stable condition. [facility] [place]-07/31/25) Pt presented for evaluation of worsening abdominal pain and nausea. Admitted for treatment of likely gallstone pancreatitis. Patient underwent ERCP with multiple sweeps with balloon, no stones seen. LFTs continually down trended and improved, bilirubin normalized. Patient felt well on day of discharge and was tolerating solid diet. Assessment & Plan (08/09/2025 9:51 AM EDT): [facility] [place]07[place]19/[place]) Abdominal US 07/18/25 showed gallstones/sludge, possibly early cholecystitis. Admitted to surgical service for further treatment of biliary colic. Patient elected to proceed with laparoscopic cholecystectomy. [facility] [place]07[place]24/[place]) Pt returned for evaluation s/p laparoscopic [...] advanced. Patient discharged home in stable condition. [facility] [place]07[place]) Pt presented for evaluation of worsening [...] loss 06/22/2024 Overview (06/22/2024): -Abnormal audiogram at [facility] 05/2024 -ENT referral placed 06/22/24 Assessment & Plan (04/19/2025 2:34 PM EDT): -Abnormal audiogram at [facility] 05/2024 -ENT referral placed 06/22/24 History of postmenopausal bleeding 06/22/2024 Overview (04/19/2025): Seen by Dr. Alonso at [facility] 380/24. -co testing done, recommended ultrasound to measure [...] 1.7-2.7 cm. Recommended to Gyne Onc consult Dust Operator Onc referral for a consult placed by Dr. Alonso 09/08/24 Seen by pet care worker 09/21/24 MRI recommended and possible surery in the future. Follow up after MRI. (Dust Operator noted does not have location of signature of provider) -Saw MUSHROOM FARMER at [facility] 09/21 for intake and a Televist 10/10/24. Per note by Dr. Rosanna Lowe who noted size and growth is stable dating back to 2020, recommending annual pelvic US. Assessment & Plan (04/19/2025 2:45 PM EDT): Seen by Dr. Alonso at [facility] 730/24. -co testing done, recommended ultrasound to measure [...] 1.7-2.7 cm. Recommended to Gyne Onc consult Dust Operator Onc referral for a consult placed by Dr. Alonso 09/08/24 Seen by pet care worker 09/21/24 MRI recommended and possible surery in the future. Follow up after MRI. (Dust Operator noted does not have location of signature of provider) -Saw MUSHROOM FARMER at [facility] 09/21 for intake and a Televist 10/10/24. Per note by Dr. Rosanna Lowe who noted size and growth is stable dating back to 2020, recommending annual pelvic US. Bronchitis 05/09/2024 Erosive gastritis 05/09/2024 Overview (04/20/2025): -followed by [...] due after 04/19/26 -eye care facilitated by [facility] -dental home is [facility] -health care proxy given 04/19/25 and filed 08/09/25 Assessment & Plan (08/09/2025 9:51 AM EDT): -next comprehensive annual evaluation due after 04/19/26 -eye care facilitated by [facility] -dental home is [facility] -health care proxy given 04/19/25 and filed 08/09/25 Assessment & Plan (04/19/2025 2:32 PM EDT): -next comprehensive annual evaluation due after 04/19/26 -eye care facilitated by [facility] -dental home is [facility] -health care proxy given and filed 04/19/25 [...] (04/19/2025): -Hx pap with Dr. Alonso 02/2021 [place], HPV positive on 01/2021 next due in [...] - Valsartan 80mg once daily added by [facility] 05/09/24 Assessment & Plan (08/09/2025 9:51 AM EDT): -diagnosed 04/2022 -cough with hernan inhibitor -Blood pressure is at goal 08/09/25 -Continue lifestyle modifications -Continue current medications - Valsartan 80mg once daily added by CD 05/09/24 Assessment & Plan (04/19/2025 2:34 PM [...] idiopathic constipation 11/20/2020 Diabetes mellitus without complication Overview (08/09/2025): Metformin ER 500mg once daily started by [facility] 09/28/24, increased to Metformin ER 500mg twice [...] Metformin ER 500mg once daily started by [facility] 09/28/24, increased to Metformin ER 500mg twice [...] Metformin ER 500mg once daily started by [facility] 09/28/24, increased to Metformin ER 500mg twice [...] of lumbar region 05/09/202405/25 Wheezing 05/09/2024 06/22/2024 Toe pain, left 03/15/2024 04/19/2024 [...] Encounters Date Type Department Care Team Description 08/29/2025 3:00 PM EDT Office Visit [facility] [address] [facility] [place] [address] Ivana Fernando MD Bronchitis (Primary Dx) 08/29/2025 Results Follow-Up [facility] [address] Ivana Fernando MD XR Chest 2 Views 08/29/2025 Travel 08/28/[address] [address] Libra Barone MD October Recalls 08/28/2025 Travel 08/24/2025 Refill [facility] [place] [address] Libra Barone MD Benign hypertension 08/24/2025 Refill [facility] [place] [address] Malu Medina PharmD Benign hypertension 08/15/[address] [address] Malu Medina, PharmD 08/15/2025 Travel 08/09/2025 9:00 AM EDT Office Visit [facility] [place] [address] Libra Barone MD Hx laparoscopic cholecystectomy (Primary Dx); Transaminitis; Benign hypertension; Diabetes mellitus without complication (CMS/[facility]); Positive depression screening; Class 1 obesity due to excess calories with serious comorbidity and body mass index (BMI) of 33.0 to 33.9 in adult; Dietary counseling; Exercise counseling; Other specified health status; Depressive disorder; Irritable bowel syndrome, unspecified type 08/09/2025 Orders Only [facility] [address] Libra Barone MD 08/09/2025 Travel 08/08/[address] [address] Libra Barone MD CHART PREP 08/02/[address] [address] Libra Barone MD Hyperglycemia, unspecified; Diabetes mellitus without complication (CMS/[facility]) 07/28/2025 Orders Only [facility] External Provider, [facility] 07/28/2025 Telephone [facility] [address] [place] [phone] Libra Barone MD FYI 07/27/2025 Orders Only GENERIC EXTERNAL DATA DEPARTMENT Provider, Generic External Data 07/22/2025 Orders Only [facility] External Provider, [facility] 07/21/2025 Orders Only GENERIC EXTERNAL DATA DEPARTMENT Provider, Generic External Data 07/20/2025 Patient Outreach [facility] [address] [place] [address] Libra Barone MD Transition Of Care (Tcm) (HDF scheduled. ) 07/20/2025 Telephone [facility] [address] [place] [address] Libra Barone MD Medication Question 07/18/2025 Orders Only GENERIC EXTERNAL DATA DEPARTMENT Provider, Generic External Data Abdominal pain, unspecified abdominal location (Primary Dx) 07/13/2025 Refill [facility] [address] [place] [address] Malu Medina, PharmD Benign hypertension 06/26/2025 Orders Only [facility] [address] [place] [address] Libra Barone MD 06/23/2025 Telephone [facility] [address] [place] [phone] Libra Barone MD 05/30/2025 Refill [facility] [address] [place] [address] Libra Barone MD Mild intermittent asthma without complication; High blood sugar from Last 3 Months Immunizations Immunization Administration [...] Mass Index 32.56 08/29/2025 2:40 PM EDT Plan of Treatment Upcoming Encounters Date Type Department Care Team (Late st Contact Info) Description 10/10/2025 3:00 PM EST Medication Management [address] [address] Malu Medina, PharmD [address] [place] [phone] 11/08/2025 3:15 PM EST Office Visit [facility] [address] [place] [address] Lirba Barone MD [address] [place] [address] Health Maintenance Due Date Last Done Comments [...] 01/17/2026 01/17/2025 Alcohol/Substance Use Screening 01/26/2026 01/26/2025 Lipid Panel 04/18/2026 04/18/2025, 08/24, 2023, Additional history exists Diabetes: Foot Exam 04/19/2026 04/19/2025, 04/19/2025, 04/19/2025, Additional history exists Mammogram 05/18/2026 05/18/2025, 04/24, 07/16/2024, Additional history exists Depression Screening 08/09/2026 08/09/2025, 08/09/20 Diabetes: Urine Protein Screening 08/09/2026 08/09/2025, 04/18/2025, 08/21/2023, Additional history exists Tobacco Screening 08/09/2026 08/09/2025 Eye Exam 02/28/2027 02/28/2025, 04/0 06/2025, 02/28/2025, [...] Routine 08/29/2025 3:21 PM EDT Bronchitis POCT RAPID COVID ANTIGEN Routine 08/29/2025 3:20 PM EDT Bronchitis POCT INFLUENZA A (ID NOW RAPID MOLECULAR) Routine 08/29/2025 3:20 PM EDT Bronchitis ALBUMIN, RANDOM URINE W/CREATININE Routine 08/09/2025 9:32 AM EDT HEPATIC FUNCTION PANEL Routine 08/09/2025 9:32 AM EDT Transaminitis POCT GLUCOSE Routine 08/09/2025 9:12 AM EDT [...] TOMOSYNTHESIS BILATERAL Routine 05/18/2025 1:30 PM EDT LIPID PANEL, STANDARD Routine 04/18/2025 8:51 AM [...] Relevant to Health Maintenance Results * XR Chest 2 Views (08/29/2025 3:45 PM EDT) Anatomical Region Laterality Modality Chest Radiographic Courtney ging 08/29/2025 3:45 PM EDT Narrative 08/29/2025 4:10 PM EDT [address] [address] XRay Report Signed Patient: Sridevi Pruitt I MR#: [id number] 2336 : 1960 Acct:[id number] Age/Sex: 65 / F ADM Date: 08/29/25 Loc: HO.HHCX Attending Dr: Ivana Beltran MD Ordering Physician: Ivana Fernando MD Date of Service: 08/29/25 Procedure(s): XR chest 2V Accession Number(s): [id number] cc: Ivana Fernando MD Reason for Exam: [...] 08/29/25 1608 DD/ 1545 TD/TT: 08/29/25 1546 Global Sales Executive: Procedure Note Donotuseinterpreter, Image - 08/29/[address] [address] XRay Report Signed Patient: Sridevi Pruitt IMR#: [id number] : 9Acct:[id number] Age/Sex: 65 / FADM Date: 08/29/25 Loc: HO.HHCX Attending Dr: Ivana Beltran MD Ordering Physician: Ivana Fernando MD Date of Service: 08/29/25 Procedure(s): XR chest 2V Accession Number(s): [id number] cc: Ivana Fernando MD Reason for Exam: [...] 08/29/25 1608 DD/ 1545 TD/TT: 08/29/25 1546 Global Sales Executive: us Ivana Beltran MD IMG XR PROCEDURES Fin al Result * POCT Rapid Influenza B CUI ID NOW (08/29/2025 3:21 PM EDT) [facility] [employer] Signature Influenza B Negative Negative, Indeterminate [facility] QC Media Lot # [id number] [facility] Lot# Expiration Date [facility] Swab 08/29/2025 3:21 PM EDT us Ivana Beltran MD POINT OF CARE TEST EN TER/EDIT ORDERABLES Final Result Performing Organization Address [facility] Co de Phone Number [facility] [address] [place] [phone] * POCT Rapid Influenza A CUI ID NOW (08/29/2025 3:20 PM EDT) [facility] Influenza A Negative Negative, Indeterminate [facility] QC Media Lot # [id number] [facility] Lot# Expiration Date [facility] Swab 08/29/2025 3:20 PM EDT us Ivana Beltran MD POINT OF CARE TEST EN TER/EDIT ORDERABLES Final Result Performing Organization Address [facility] Co de Phone Number [facility] [address] [place] [phone] * POCT Rapid Covid-19 BinaxNOW (08/29/2025 3:20 PM EDT) Rapid COVID Ag Negative QC Media Lot # [id number] Lot# Expiration Date 826 Swab 08/29/2025 3:20 PM EDT us Ivana Beltran MD POINT OF CARE TEST EN TER/EDIT ORDERABLES Final Result * Albumin, Random Urine W/Creatinine (08/09/2025 9:32 AM EDT) Creatinine, Urine 152.93 mg/dL [facility] Microalbumin Urine 19.0 mg/L [facility] Microalbum Creatinine Ratio Ur 12.4 <30 ug/mg cr [facility] Comment:Albumin/Creatinine R atio Reference Ranges: Normal: < 30 ug/mg creatinine Microalbuminuria: 30 - 300 ug/mg creatinineClinical Albuminuria: > 300 ug/mg creatinine 08/09/2025 9:32 AM EDT 08/09/2025 11:14 AM EDT us Libra Barone MD LAB URINE ORDERABLES Final Result [facility] [address] [place] [address] [phone] * (ABNORMAL) Hepatic Function Panel (08/09/2025 9:32 AM EDT) Only the most recent of3 resultswithin the time period is included. Bilirubin, Total 0.5 0.0 - 1.0 mg/dL [facility] Bilirubin, Direct 0.3 0.0 - 0.5 mg/dL [facility] Aspartate Amino Transferase 21 5 - 31 U/L [facility] Alanine Aminotransferase 26 0 - 31 U/L [facility] Total Protein 6.7 6.5 - 8.0 g/dL [facility] Albumin Level 4.2 3.5 - 5.0 g/dL [facility] Alkaline Phosphatase 171(H) 39 - 117 U/L [facility] Blood Venous blood specimen / Unknown 08/09/2025 9:32 AM EDT 08/09/2025 11:14 AM EDT Libra Barone MD LAB BLOOD ORDERABLES Final Result [facility] [address] [place] [phone] * (ABNORMAL) POCT Hgb A1c (08/09/2025 9:12 AM EDT) Hemoglobin A1C 7.0(A) 4.0 - 5.7 % QC Media Lot # [id number] Lot# Expiration Date [id number] Blood 08/09/2025 9:12 AM EDT Libra Barone MD POINT OF CARE TEST ENTER/E DIT ORDERABLES Final Result * (ABNORMAL) POCT Glucose (08/09/2025 9:12 AM EDT) Glucose Blood, POC 225(A) 60 - 200 mg/dL QC Media Lot # [id number] Lot# Expiration Date [id number] Blood Capillary blood specimen / Unknown 08/09/2025 9:12 AM EDT Libra Barone MD POINT OF CARE TEST ENTER/E DIT ORDERABLES Final Result * [place] Guidance in [place] (07/28/2025 1:53 PM EDT) Anatomical Region Laterality Modality X-Ray Angiograph y 07/28/2025 1:53 PM EDT Narrative 07/28/2025 2:48 PM EDT [address] [address] Fluoroscopy Report Signed Patient: Sridevi Pruitt I MR#: [id number] 2336 : 1960 Acct:[id number] Age/Sex: 65 / F ADM Date: 07/28/25 Loc: .S3 354-[address]: Dxe Silva MD Ordering Physician: Arya Gutierrez MD Date of Service: 07/28/25 Procedure(s): [place] guidance in OR Accession Number(s): [id number] cc: Libra Barone MD; Arya Gutierrez MD [...] 07/28/25 1445 DD/ 1353 TD/TT: 07/28/25 1424 Global Sales Executive: Procedure Note Donotuseinterpreter, Image - 07/28/2025 [place] [address] Fluoroscopy Report Signed Patient: Sridevi Pruitt IMR#: [id number] : 9Acct:[id number] Age/Sex: 65 / FADM Date: 07/28/25 Loc: HO.S3 354-[address]: Dex Silva MD Ordering Physician: Arya Gutierrez MD Date of Service: 07/28/25 Procedure(s): [place] guidance in OR Accession Number(s): [id number] cc: Libra Barone MD; Arya Gutierrez MD [...] 07/28/25 1445 DD/ 1353 TD/TT: 07/28/25 1424 Global Sales Executive: [facility] External Provider IMG IR PROCEDURES Final Result * CT Abdomen Pelvis w/ Contrast (07/28/2025 4:28 AM EDT) Only the most recent of2 resultswithin the time period is included. Anatomical Region Laterality Modality Body, Pelvis, Abdomen Computed T omography 07/28/2025 4:28 AM EDT Narrative 07/28/2025 4:30 AM EDT [place] [address] CT Scan Report Signed Patient: Sridevi Pruitt I MR#: [id number] 2336 : 1960 Acct:[id number] Age/Sex: 65 / F ADM Date: 07/27/25 Loc: HO.ED Attending Dr: Ordering Physician: Lester Santos Date of Service: 07/28/25 Procedure(s): CT abdomen pelvis w IV con Accession Number(s): [id number] cc: Libra Barone MD; Lester Santos Report Number: [id number]: Total DLP = 598.00 mGy-cm Reason for [...] in OV> 07/28/[address]28 DD/ 7 TD/TT: 07/28/25427 Global Sales Executive: Procedure Note Donotuseinterpreter, Image - 07/28/[address] [place] [address] [address] Scan Report Signed Patient: Sridevi Pruitt IMR#: [id number] 2336 : 9Acct:[id number] Age/Sex: 65 / FADM Date: 07/27/25 Loc: .ED Attending Dr: Ordering Physician: Lester Santos Date of Service: 07/28/25 Procedure(s): CT abdomen pelvis w IV con Accession Number(s): [id number] cc: Libra Barone MD; Lester Santos Report Number: [id number]: Total DLP = 598.00 mGy-cm Reason for [...] in OV> 07/28/25428 DD/ 7 TD/TT: 07/28/25427 Global Sales Executive: [facility] External Provider IMG CT PROCEDURES Edited Result - Final * (ABNORMAL) Urinalysis, Complete, with Reflex to Culture (07/27/2025 11:13 PM EDT) Only the most recent of2 resultswithin the time period is included. Color Urine Dark Yellow [facility] Appearance Urine Clear [facility] PH 7.0 5.0 - 9.0 [facility] Glucose Urine UA Negative Negative mg/dL [facility] Urine Blood Negative Negative [facility] Specific [place] - Urine 1.010 1.005 - 1.025 [facility] Urine Protein Negative Neg-Trace mg/dL [facility] Urine Ketones Negative Negative mg/dL [facility] Nitrite Urine Negative Negative [facility] Leukocyte Esterase Urine Small (1+)(A) Negative [facility] RBC Urine 0-2 0 - 2 /HPF [facility] Urine WBC 6-10(A) 0 - 5 /HPF [facility] Urine Squamous Epithelial Cell 6-10 0 - 2 /HPF [facility] Urine Bacteria None Seen None Seen [facility] Hyaline Casts, Urine 0-2 0 - 2 /LPF [facility] 07/27/2025 11:1 3 PM EDT 07/27/2025 11:17 PM EDT Narrative [facility] - 07/27/2025 11:46 PM EDT [id number], Clean Catch us Generic External Data Provider LAB URINE ORDERAB LES Final Result [facility] [address] [place] [address] [phone] * (ABNORMAL) CBC auto differential (07/27/2025 8:47 PM EDT) Only the most recent of3 resultswithin the time period is included. White Blood Count 9.0 4.8 - 10.8 X10*3/uL [facility] Red Blood Count 4.60 4.20 - 5.50 X10*6/uL [facility] Hemoglobin 13.7 12.0 - 16.0 g/dl [facility] Hematocrit 40.7 37.0 - 47.0 % [facility] [facility] Mean Corpuscular Volume 88.5 80.0 - 98.0 fL [facility] Mean Corpuscular Hemoglobin 29.8 27.0 - 33.0 pg [facility] Mean Corpuscular HGB Conc 33.7 31.0 - 35.0 g/dl [facility] Red Cell Distribution Width 15.3 11.0 - 16.0 % [facility] Platelet Count 328 160 - 400 X10*3/uL [facility] Mean Platelet Volume 10.6 9.4 - 12.3 fL [facility] Neutrophils Percent Auto 62.7 45 - 73 % [facility] Imm Gran Pct Auto 0.7(H) 0.0 - 0.4 % [facility] Lymphocytes Percent Auto 27.3 20 - 40 % [facility] Monocytes Percent Auto 6.6 2 - 11 % [facility] Eosinophils Percent Auto 2.1 0 - 4 % [facility] Basophils Percent Auto 0.6 0 - 2 % [facility] NRBC Pct Auto 0.0 0.0 - 0.2 /100WBC [facility] Neutrophils Absolute Auto 5.7 2.0 - 8.3 x10*3/uL [facility] Imm Gran Abs Auto 0.06(H) 0.00 - 0.03 X10*3/uL [facility] Lymphocytes Absolute Auto 2.5 1.2 - 4.9 X10*3/uL [facility] Monocytes Absolute Auto 0.6 0.1 - 1.2 X10*3/uL [facility] Eosinophils Absolute Auto 0.2 0.0 - 0.4 X10*3/uL [facility] Basophils Absolute Auto 0.1 0.0 - 0.2 X10*3/uL [facility] NRBC Abs Auto 0.000 0.0 - 0.012 X10*3/uL [facility] 07/27/2025 8:47 PM EDT 07/27/2025 8:50 PM EDT Generic External Data Provider LAB BLOOD ORDERAB LES Final Result Performing Organization Address City/[facility] Co de Phone Number [facility] [address] [place] [phone] * (ABNORMAL) Lipase (07/27/2025 8:47 PM EDT) Only the most recent of3 resultswithin the time period is included. Lipase 397(H) 8 - 78 U/L [facility] 07/27/2025 8:47 PM EDT 07/27/2025 8:50 PM EDT Generic External Data Provider LAB BLOOD ORDERAB LES Final Result Performing Organization Address [facility] Co de Phone Number [facility] [address] [place] [phone] * (ABNORMAL) Basic Metabolic Panel (07/27/2025 8:47 PM EDT) Only the most recent of2 resultswithin the time period is included. Sodium 140 135 - 145 mmol/L [facility] Potassium 4.2 3.3 - 5.1 mmol/L [facility] Chloride 103 96 - 108 mmol/L [facility] Carbon Dioxide 29 22 - 29 mmol/L [facility] Anion Gap 12 12 - 20 [facility] Urea Nitrogen (BUN) 13 9 - 16 mg/dL [facility] Creatinine, Serum 0.75 0.5 - 1.4 mg/dL [facility] Creatinine Clr Calc Pharmacy 72.4 [facility] Comment:Provided height and weight: 157.48 cm,80.4 kg.eGFR (calculated from the MDRD study equation) and eCrCl(calculated from the Cockcroft-Gault equation) are based ondifferent parameters and may not yield comparable results.If eCrCl result is absurd, please check patient'sheight/weight. Estimated Glomerular Filt Rate >60 [facility] Comment:Chronic Kidney Disea se: Estimated GFR < 60 mL/min/1.00r4Vccbuq Kidney Disease: Estimated GFR < 15 mL/min/1.73m2 Glucose 151(H) 60 - 115 mg/dL [facility] Calcium 9.3 8.4 - 10.2 mg/dL [facility] 07/27/2025 8:47 PM EDT 07/27/2025 8:50 PM EDT us Generic External Data Provider LAB BLOOD ORDERAB LES Final Result [facility] [address] [place] [phone] * MR MRCP (07/22/2025 10:17 AM EDT) Anatomical Region Laterality Modality Lower Extremities Left Magnetic Reson ance 07/22/2025 10:1 7 AM EDT Narrative 07/22/2025 10:19 AM EDT [address] [address] Magnetic Resonance Report Signed Patient: Sridevi Pruitt I MR#: [id number] 2336 : 1960 Acct:[id number] Age/Sex: 65 / F ADM Date: 07/22/25 Loc: HO.S3 346-[address]: Savanah Vega MD Ordering Physician: Savanah Vega MD Date of Service: 07/22/25 Procedure(s): MR MRCP Accession Number(s): [id number] cc: Libra Barone MD; Savanah Vega MD [...] 07/22/25 1018 DD/ 1017 TD/TT: 07/22/25 1017 Global Sales Executive: Procedure Note Donotuseinterpreter, Image - 07/22/2025 [place] [address] Magnetic Resonance Report Signed Patient: Sridevi Pruitt [facility]#: [id number] 2336 : 9Acct:[id number] Age/Sex: 65 / FADM Date: 07/22/25 Loc: HO.S3 346-[address]: Savanah Vega MD Ordering Physician: Savanah Vega MD Date of Service: 07/22/25 Procedure(s): MR MRCP Accession Number(s): [id number] cc: Libra Barone MD; Savanah Vega MD [...] 07/22/25 1018 DD/ 1017 TD/TT: 07/22/25 1017 Global Sales Executive: us [facility] External Provider IMG MRI PROCEDURES Final Result * US Abdomen Limited (07/21/2025 11:46 PM EDT) Only the most recent of2 resultswithin the time period is included. Anatomical Region Laterality Modality Abdomen Ultrasound 07/21/2025 11:4 6 PM EDT Narrative 07/21/2025 11:48 PM EDT [place] [address] Ultrasound Report Signed Patient: Sridevi Pruitt I MR#: [id number] 2336 : 1960 Acct:[id number] Age/Sex: 65 / F ADM Date: 07/21/25 Loc: HO.ED Attending Dr: Ordering Physician: Noel Ch MD Date of Service: 07/21/25 Procedure(s): US abdomen limited Accession Number(s): [id number] cc: Libra Barone MD; Noel Ch MD [...] in OV> 07/21/252346 DD/ 45 TD/TT: 07/21/252345 Global Sales Executive: Procedure Note Donotuseinterpreter, Image - 07/21/2025 [place] [address] Ultrasound Report Signed Patient: Sridevi Pruitt [facility]#: [id number] 2336 : 9Acct:[id number] Age/Sex: 65 / FADM Date: 07/21/25 Loc: HO.ED Attending Dr: Ordering Physician: Noel Ch MD Date of Service: 07/21/25 Procedure(s): US abdomen limited Accession Number(s): [id number] cc: Libra Barone MD; Noel Ch MD [...] in OV> 07/21/252346 DD/ 45 TD/TT: 07/21/252345 Global Sales Executive: us [facility] External Provider IMG US PROCEDURES Edited Result - Final * Partial Thromboplastin Time, Activated (APTT) (07/21/2025 9:11 PM EDT) Partial Thromboplastin Time 28.8 26.7 - 34.1 SEC [facility] 07/21/2025 9:11 PM EDT 07/21/2025 9:19 PM EDT Generic External Data Provider LAB BLOOD ORDERAB LES Final Result [facility] [address] [place] [phone] * Prothrombin Time-INR (07/21/2025 9:11 PM EDT) Prothrombin Time 11.9 10.9 - 12.4 SEC [facility] INTERNATIONAL NORM RATIO 1.0 0.9 - 1.1 [facility] Comment:INTERNATIONAL NORMAL IZED RATIO (INR) [...] ORDERAB LES Final Result Performing Organization Address City/State/[facility] Co de Phone Number [facility] [address] [place] [address] [phone] * XR KUB and Upright 2 Views (07/21/2025 8:11 PM EDT) Anatomical Region Laterality Modality Radiographic Courtney ging 07/21/2025 8:11 PM EDT Narrative 07/21/2025 8:13 PM EDT [address] [address] XRay Report Signed Patient: Sridevi Pruitt I MR#: [id number] 2336 : 1960 Acct:[id number] Age/Sex: 65 / F ADM Date: 07/21/25 Loc: .ED Attending Dr: Ordering Physician: Lester Santos Date of Service: 07/21/25 Procedure(s): XR KUB Accession Number(s): [id number] cc: Libra Barone MD; Lester Santos CLINICAL [...] in OV> 07/21/252011 DD/ 10 TD/TT: 07/21/252010 Global Sales Executive: Procedure Note Faheemmichaelledominique, Image - 07/21/2025 [place] [address] XRay Report Signed Patient: Sridevi Pruitt IMR#: [id number] 2336 : 9Acct:[id number] Age/Sex: 65 / FADM Date: 07/21/25 Loc: HO.ED Attending Dr: Ordering Physician: Lester Santos Date of Service: 07/21/25 Procedure(s): XR KUB Accession Number(s): [id number] cc: Libra Barone MD; Lester Santos CLINICAL [...] in OV> 07/21/252011 DD/ 10 TD/TT: 07/21/252010 Global Sales Executive: [facility] External Provider IMG XR PROCEDURES Final Result * (ABNORMAL) Comprehensive Metabolic Panel (07/21/2025 7:40 PM EDT) Sodium 142 135 - 145 mmol/L [facility] Potassium 4.2 3.3 - 5.1 mmol/L [facility] Chloride 104 96 - 108 mmol/L [facility] Carbon Dioxide 27 22 - 29 mmol/L [facility] Anion Gap 15 12 - 20 [facility] Urea Nitrogen (BUN) 12 9 - 16 mg/dL [facility] Creatinine, Serum 0.66 0.5 - 1.4 mg/dL [facility] Creatinine Clr Calc Pharmacy 84.2 [facility] Comment:Provided height and weight: 157.48 cm,83.915 kg.eGFR (calculated from the MDRD study equation) and eCrCl(calculated from the Cockcroft-Gault equation) are based ondifferent parameters and may not yield comparable results.If eCrCl result is absurd, please check patient'sheight/weight. Estimated Glomerular Filt Rate >60 [facility] Comment:Chronic Kidney Disea se: Estimated GFR < 60 mL/min/1.43v0Tehcrx Kidney Disease: Estimated GFR < 15 mL/min/1.73m2 Glucose 166(H) 60 - 115 mg/dL [facility] Calcium 9.6 8.4 - 10.2 mg/dL [facility] Bilirubin, Total 2.2(H) 0.0 - 1.0 mg/dL [facility] Aspartate Amino Transferase 1,210(H) 5 - 31 U/L [facility] Alanine Aminotransferase 892(H) 0 - 31 U/L [facility] Total Protein 7.1 6.5 - 8.0 g/dL [facility] Albumin Level 4.2 3.5 - 5.0 g/dL [facility] Alkaline Phosphatase 377(H) 39 - 117 U/L [facility] 07/21/2025 7:40 PM EDT 07/21/2025 7:43 PM EDT us Generic External Data Provider LAB BLOOD ORDERAB LES Final Result [facility] [address] [place] [phone] * (ABNORMAL) Urinalysis w/reflex microscopic (07/18/2025 10:05 AM EDT) Color Urine Yellow [facility] Appearance Urine Clear [facility] PH 5.5 5.0 - 9.0 [facility] Glucose Urine UA Negative Negative mg/dL [facility] Urine Blood Trace(A) Negative [facility] Specific [place] - Urine 1.025 1.005 - 1.025 [facility] Urine Protein Negative Neg-Trace mg/dL [facility] Urine Ketones Negative Negative mg/dL [facility] Nitrite Urine Negative Negative [facility] Leukocyte Esterase Urine Negative Negative [facility] 07/18/2025 10:0 5 AM EDT 07/18/2025 10:08 AM EDT Narrative [facility] - 07/18/2025 10:14 AM EDT Urine, Clean Catch Generic External Data Provider LAB URINE ORDERAB LES Final Result Performing Organization Address [facility] Co de Phone Number [facility] [address] [place] [phone] * High Sensitivity Troponin I (07/18/2025 7:55 AM EDT) TROPONIN I HIGH SENSITIVITY <2.7 <3.5 - 17.0 ng/L [facility] Comment:The Cui high sens itivity Troponin-I results should beused in conjunction with other diagnostic information suchas ECG, clinical observations and information, and patientsymptoms to aid in the diagnosis of MS. 07/18/2025 7:55 AM EDT 07/18/2025 8:42 AM EDT us Generic External Data Provider LAB BLOOD ORDERAB LES Final Result Performing Organization Address [facility] Co de Phone Number [facility] [address] [place] [phone] * US Extremity Non Vascular Left Limited (06/26/2025 1:09 PM EDT) Anatomical Region Laterality Modality Ultrasound 06/26/2025 1:09 PM EDT Narrative 06/26/2025 1:30 PM EDT [address] [address] Ultrasound Report Signed Patient: Sridevi Pruitt I MR#: [id number] 2336 : 1960 Acct:[id number] Age/Sex: 65 / F ADM Date: 06/26/25 Loc: HO.US Attending Dr: Libra Barone MD Ordering Physician: Libra Barone MD Date of Service: 06/26/25 Procedure(s): US Extremity Nonvas Limited LT Accession Number(s): [id number] cc: Libra Barone MD Exam:US Extremity Nonvas [...] 06/26/25 1327 DD/ 1309 TD/TT: 06/26/25 1312 Global Sales Executive: Procedure Note Donotuseinterpreter, Image - 06/26/[address] [address] Ultrasound Report Signed Patient: Sridevi Pruitt IMR#: [id number] : 1960cct:[id number] Age/Sex: 65 / FADM Date: 06/26/25 Loc: .US Attending Dr: Libra Barone MD Ordering Physician: Libra Barone MD Date of Service: 06/26/25 Procedure(s): US Extremity Nonvas Limited LT Accession Number(s): [id number] cc: Libra Barone MD Exam:US Extremity Nonvas [...] 06/26/25 1327 DD/ 1309 TD/TT: 06/26/25 1312 Global Sales Executive: us Libra Barone MD IMG US PROCEDURES Final Re sult * BI Mammogram Diagnostic Tomosynthesis Bilateral (05/18/2025 1:30 PM EDT) Anatomical Region Laterality Modality Breast Bilateral Mammography 05/18/2025 1:30 PM EDT Narrative 05/18/2025 2:45 PM EDT [facility] [address] [place] [address] Mammography Report Signed Patient: Sridevi Pruitt I MR#: [id number] 2336 : 1960 Acct:[id number] Age/Sex: 64 / F ADM Date: 05/18/25 Loc: HO.MAMMO Attending Dr: Sue Coats MD Ordering Physician: Sue Coats MD Results: 2Be nign Findings Date of Service: 05/18/25 Follow Up: 1 Year From [facility] Mammogram Procedure(s): MM tomosynthesis diagnostic BI Accession Number(s): [id number] cc: Libra Barone MD; Sue Coats MD [...] clip from previous needle core biopsy. Left: Kramer marker in the lower inner left breast [...] 05/18/25 1443 DD/ 1330 TD/TT: 05/18/25 1358 Global Sales Executive: Procedure Note Donotuseinterpreter, Image - 05/18/2025 [facility] [address] [place] [address] Mammography Report Signed Patient: Sridevi Pruitt [facility]#: [id number] : 9Acct:[id number] Age/Sex: 64 / FADM Date: 05/18/25 Loc: HO.MAMMO Attending Dr: Sue Coats MD Ordering Physician: Sue Coats MDResults: 2Be nign Findings Date of Service: 05/18/25Follow Up: 1 Year From [facility] Mammogram Procedure(s): MM tomosynthesis diagnostic BI Accession Number(s): [id number] cc: Libra Barone MD; Sue Coats MD [...] clip from previous needle core biopsy. Left: Kramer marker in the lower inner left breast [...] 05/18/25 1443 DD/ 1330 TD/TT: 05/18/25 1358 Global Sales Executive: Sue Coats MD IMG BI PROCEDURES Final Result * Lipid Panel, Standard (04/18/2025 8:51 AM EDT) Triglycerides 61 <150 mg/dL [facility] Comment:Desirable Triglyceri de: less than [...] 190 mg/dL HDL Cholesterol 53 >40 mg/dL [facility] Comment:Desirable HDL: great er than 40 mg/dL Note: This HDL assay may give artificially low results in patients with liver disease. Blood Venous blood specimen / Unknown 04/18/2025 8:51 AM EDT 04/18/2025 11:06 AM EDT Libra Barone MD LAB BLOOD ORDERABLES Final Result [facility] [address] [place] [phone] * ThinPrep Imaging Pap and HPV mRNA E6/E7 with Reflex to HPV 16,18/45 (06/21/2024 9:52 AM EDT) HPV 16 RNA TNP [facility] HPV 18/45 RNA [facility] HPV nRNA E6/E7 Not [...] alternative testing options.For additional information, please refer tohttp://education.[employer]/faq/FIS121u2(This link if provided for information/educational purposes only.)THIS TEST WAS PERFORMED AT:[facility] [address] [id number] KHAN MD SOURCE: SEE NOTE [facility] Comment:Cervix Report Status: [facility] Clinical Information: SEE NOTE [facility] Comment:ROUTINE LMP: SEE NOTE [facility] Comment:PM Prev. PAP: SEE NOTE [facility] Comment:06/05/22 Prev. BX: SEE NOTE [facility] Comment:NONE GIVEN Statement Of Adequacy: SEE NOTE [facility] Comment:SATISFACTORY FOR GHAZAL LUATION General Categorization: [facility] Interpretation/Result: SEE NOTE [facility] Comment:Cytology Results: Ne gative for intraepitheliallesion or malignancy.Atrophic pattern; predominantly parabasal cells Cytology Comment SEE NOTE [facility] Comment:This Pap test has be en evaluated with computerassisted technology. Sales And Distribution Clerk: SEE NOTE [facility] Comment:BK,CT(ASCP)CT screen ing location: [address] Review Sales And Distribution Clerk: [facility] Pathologist [facility] PAP Infection [facility] [...] ORD ERABLES Final Result Performing Organization Address [facility] Co de Phone Number [facility] [address] [place] [phone] * Hepatitis Panel, General (07/22/2023 1:58 [...] 1:58 PM EDT 07/22/2023 1:59 PM EDT [facility] External Provider LAB BLO OD ORDERABLES Final Result Performing Organization Address [facility] Co de Phone Number [facility] [address] [place] [phone] * Colonoscopy (12/01/2022 12:16 PM EST) Historical Provider HEALTH MAINTENANCE Final Result from Last 3 Months or Most Recently Relevant to Health Maintenance Insurance [employer] (O D-SNP) [facility] Care Teams Claim Specialist Relationship Specialty Start Date End Date Lizabeth, MD Libra [address] [place] [address] [place] [address] PCP - General Family Medicine 11/23/18 Malu Medina, LisaD [address] [place] [address] Pharmacist Internal Medicine 05/09/24 Tamie Vega OD [address] [place] [address] [phone] Optometry 02/16/25February [address] [place] [address] 3rd Floor [place], [place] [phone] Gastroenterology 04/20/25 Dr. Nimo Sellers Psychiatry 08/09/25
--- OUTSIDE RECORDS SUMMARY | 2025-08-29 18:28 | XMS_ITS | Encounter Summary ---
Author Organization [employer] Address [address] [facility] [address]t [place] [address] Care Team Providers Care Project Development Leader Name Role Phone Libra Barone MD Primary Care Provider + [phone] Malu Medina PharmD Unavailable Gary, Tamie OD Unavailable [phone] February Unavailable Reason for Visit * Reason Onset Date Comments Pharmacy [facility] 08/19/2024 Encounter Details Date Type Department Care Team ([facility] st Contact Info) Description 08/19/[address] [facility] [address] [place], [place] [phone] Libra Barone MD [address] [place], [place] [phone] Pharmacy [facility] Social History Tobacco Use Types [...] Description 10/10/2025 3:00 PM EST Medication Management [facility] [address] [place] [phone] Malu Medina, PharmD [address] [place] [phone] 11/08/2025 3:15 PM EST Office Visit [facility] [address] [place] [phone] Libra Barone MD [address] [place] [phone] documented as of this encounter Goals Goal [...] documented as of this encounter Care Teams Project Development Leader Relationship Specialty Start Date End Date Libra Barone MD [address] [place] [address] PCP - General Family Medicine 11/23/18 Malu Medina PharmD [address] [place] [address] Pharmacist Internal Medicine 05/09/24 Tamie Vega OD [address] [place] [phone] Optometry 02/16/25LaiFebruary [address] [place] [address] 3rd [place] [address] Gastroenterology 04/20/25 Dr. Nimo Sellers Psychiatry 08/09/25 documented as of this encounter
--- OUTSIDE RECORDS SUMMARY | 2025-08-29 18:28 | XMS_ITS | Encounter Summary ---
Author Organization [facility] [employer] Address [address] [facility] 7t [place] [address] Care Team Providers Care Centrifugal Screen Tender Name Role Phone Libra Barone MD Primary Care Provider + [phone] Malu Medina PharmD Unavailable Tamie Vega OD Unavailable [phone] February Unavailable Reason for Visit * Reason Onset Date Comments Results 08/29/2025 Encounter Details Date Type Department Care Team ([facility] st Contact Info) Description 08/29/2025 Results Follow-Up [facility] [address] [place] [address] Ivana Fernando MD [address] [place], [place] [phone] XR Chest 2 Views Social History Tobacco Use Types Packs/Day Years [...] encounter Miscellaneous Notes * Telephone Encounter - Daryn Joseph RN - 08/29/2025 4:31 PM EDT TC placed to patient [phone] using [facility] #ID [id number] regarding below message. RN informed patient of her chest x-ray results which are normal. PT verbalized understanding. PT to F/U PRN. ----- Message from Ivana Beltran MD sent at 08/29/2025 4:30 PM EDT ----- Please let patient know her x-ray is normal thank you ----- Message ----- From: Interface, Ris Results In Sent: 08/29/2025 4:11 PM EDT To: Ivana Beltran MD documented in this encounter Plan of Treatment Upcoming Encounters Date Type Department Care Team ([facility] Contact Info) Description 10/10/2025 3:00 PM EST Medication Management [facility] [address] [place] [phone] Malu Medina PharmD [address] [place] [phone] 11/08/2025 3:15 PM EST Office Visit [facility] [address] [place] [phone] Libra Barone MD [address] [place] [phone] documented as of this encounter Goals Goal [...] documented as of this encounter Care Teams Centrifugal Screen Tender Relationship Specialty Start Date End Date Libra Barone MD [address] [place] [phone] PCP - General Family Medicine 11/23/18 Malu Medina PharmD [address] [place] [phone] Pharmacist Internal Medicine 05/09/24 Tamie Vega OD [address] [place] [phone] Optometry 02/16/25 Ming Tanya [address] [place] [address] 3rd [place] [address] Gastroenterology 04/20/25 Dr. Suero [facility] Psychiatry 08/09/25 documented as of this encounter
--- OUTSIDE RECORDS SUMMARY | 2025-08-29 18:28 | XMS_ITS | Encounter Summary ---
Author Organization [employer] Address 75 [facility] 7t [place] [address] Care Team Providers Care Senior Engineering Associate Name Role Phone Libra Barone MD Primary Care Provider + [phone] Malu Medina PharmD Unavailable Gary, Tamie OD Unavailable +[phone] February Unavailable Reason for Visit * Reason Onset Date Comments Appointment Request 01/02/2025 Encounter Details Date Type Department Care Team ([facility] st Contact Info) Description 01/02/2025 Telephone [facility] MEDICINE [address] [place], [place] [phone] Libra Barone MD 230 [place], [place] [phone] Appointment Request Social History Tobacco Use Types [...] Description 10/10/2025 3:00 PM EST Medication Management [facility] MEDICINE [address] [place] [address] Malu Medina, PharmD [address] [place] [address] 11/08/2025 3:15 PM EST Office Visit [facility] MEDICINE [address] [place] [address] Libra Barone MD [address] [place] [address] documented as of this encounter Goals Goal [...] documented as of this encounter Care Teams Senior Engineering Associate Relationship Specialty Start Date End Date Libra Barone MD 230 [place] [address] PCP - General Family Medicine 11/23/18 Malu Medina PharmD 230 [place] [address] Pharmacist Internal Medicine 05/09/24 Tamie Vega OD [address] [place] [address] Optometry 02/16/25February [address] [place] [address] 3rd [place] [address] Gastroenterology 04/20/25 Dr. Nimo Sellers Psychiatry 08/09/25 documented as of this encounter
--- OUTSIDE RECORDS SUMMARY | 2025-08-29 18:28 | XMS_ITS | Encounter Summary ---
Author Organization [employer] Address [address] [facility] [address] 7t [place] [address] Care Team Providers Care Pmo Consultant Name Role Phone Libra Barone MD Primary Care Provider +- [phone] Malu Medina PharmD Unavailable [phone] Gary, Tamie OD Unavailable [phone] February Unavailable Encounter Details Date Type Department Care Team (Latest Contact Info) Description 08/28/2025 Travel Social History Tobacco Use Types Packs/Day [...] Description 10/10/2025 3:00 PM EST Medication Management [address] [address] Malu Medina, PharmD [address] [place] [address] 11/08/2025 3:15 PM EST Office Visit [address] [address] Libra Barone MD [address] [place] [address] documented as of this encounter Goals Goal Patient Goal Type Associated Problems Recent Progress Patient-Stated? Author Blood Pressure < 140/90 Blood Pressure 149/75(2024 2:40 PM EDT) No Piers-Popeyel jeff, Malu, PharmD Hemoglobin A1c < 7 Result Component 7(08/09/2025 9:12 AM EDT) No Piers-Gambl Karley aguilarsa, PharmD documented as of this encounter Visit Diagnoses Not on filedocumented in this encounter Additional Health Concerns Assessment Noted Time PHQ-9 Depression Total Score: 6 08/09/20 9:10 AM EDT documented as of this encounter Care Teams Pmo Consultant Relationship Specialty Start Date End Date Libra Barone MD [address] [place] [address] [place] [address] PCP - General Family Medicine 11/23/18 Malu Medina, Becky 230 [place] [address] Pharmacist Internal Medicine 05/09/24 Tamie Vega OD [address] [place] [address] [phone] Optometry 02/16/25February [address] [place] [address] 3rd Floor [place], [place] [phone] Gastroenterology 04/20/25 Dr. Nimo Sellers Psychiatry 08/09/25 documented as of this encounter
--- OUTSIDE RECORDS SUMMARY | 2025-08-29 18:28 | XMS_ITS | Encounter Summary ---
Author Organization [employer] Address 75 [facility] 7t [place] [address] Care Team Providers Care Relief Charge Nurse Name Role Phone Libra Barone MD Primary Care Provider + [phone] Malu Medina PharmD Unavailable Tamie Vega OD Unavailable February Unavailable Encounter Details Date Type Department Care Team (Latest Contact Info) Description 03/25/2021 Abstract [facility] CONVERSIONS Dental, Provider, DDS Social History [...] Description 10/10/2025 3:00 PM EST Medication Management [facility] MEDICINE [address] [place] [address] [phone] Malu Medina, PharmD 230 [place], [place] [phone] 11/08/2025 3:15 PM EST Office Visit [facility] MEDICINE [address] [place] [address] [phone] Libra Barone MD 230 [place], [place] [phone] documented as of this encounter Visit Diagnoses Not on filedocumented in this encounter Care Teams Relief Charge Nurse Relationship Specialty Start Date End Date Libra Barone MD [address] [place] [phone] PCP - General Family Medicine 11/23/18 Malu Medina, LisaD [address] [place] [address] Pharmacist Internal Medicine 05/09/24 Tamie Vega OD [address] [place] [address] Optometry 02/16/[address] [place] [address] 3rd [place] [address] Gastroenterology 04/20/25 Dr. Nimo Sellers Psychiatry 08/09/25 documented as of this encounter
--- OUTSIDE RECORDS SUMMARY | 2025-08-29 18:28 | XMS_ITS | Encounter Summary ---
Author Organization [employer] Address 75 [facility] 7t [place] [address] Care Team Providers Care Viscose Department Worker Name Role Phone Libra Barone MD Primary Care Provider + [phone] Malu Medina PharmD Unavailable Tamie Vega OD Unavailable [phone] February Unavailable Encounter Details Date Type Department Care Team (Latest Contact Info) Description 03/14/2019 Abstract [facility] CONVERSIONS Dental, Provider, DDS Social History [...] Description 10/10/2025 3:00 PM EST Medication Management [facility] MEDICINE [address] [place] [address] [phone] Malu Medina, PharmD 230 [place], [place] [phone] 11/08/2025 3:15 PM EST Office Visit [facility] MEDICINE [address] [place] [address] [phone] Libra Barone MD 230 [place], [place] [phone] documented as of this encounter Visit Diagnoses Not on filedocumented in this encounter Care Teams Viscose Department Worker Relationship Specialty Start Date End Date Libra Barone MD [address] [place] [address] PCP - General Family Medicine 11/23/18 Malu Medina, Becky [address] [place] [address] Pharmacist Internal Medicine 05/09/24 Tamie Vega OD [address] [place] [address] Optometry 02/16/25LaiFebruary [address] [place] [address] Drive 3rd [place] [address] Gastroenterology 04/20/25 Dr. Nimo Sellers Psychiatry 08/09/25 documented as of this encounter
--- OUTSIDE RECORDS SUMMARY | 2025-08-29 18:28 | XMS_ITS | Encounter Summary ---
Author Organization [employer] Address 75 [facility] 7t [place] [address] Care Team Providers Care Experimental Mechanic Electrical Name Role Phone Libra Barone MD Primary Care Provider + [phone] Malu Medina PharmD Unavailable Dwight Vegan OD Unavailable [phone] February Unavailable Reason for Visit * Reason Comments Med Refill Encounter Details Date Type Department Care Team (Late st Contact Info) Description 08/24/[address] [facility] MEDICINE 230 [place], [place] [phone] Malu Medina, PharmD 230 [place] [address] Benign hypertension Social History Tobacco Use Types [...] encounter Miscellaneous Notes * Telephone Encounter - Malu Medina PharmD - 08/25/2025 2:01 PM EDT Duplicate; refill provided documented in this encounter Plan of Treatment Upcoming Encounters Date Type Department Care Team (Late st Contact Info) Description 10/10/2025 3:00 PM EST Medication Management [facility] MEDICINE [address] [place] [address] Malu Medina PharmD [address] [place] [address] 11/08/2025 3:15 PM EST Office Visit [facility] MEDICINE [address] [place] [address] Libra Barone MD [address] [place] [address] documented as of this encounter Goals Goal [...] documented as of this encounter Care Teams Experimental Mechanic Electrical Relationship Specialty Start Date End Date Libra Barone MD 230 [place] [address] PCP - General Family Medicine 11/23/18 Malu Medina PharmD 230 [place] [address] Pharmacist Internal Medicine 05/09/24 Tamie Vega OD [address] [place] [address] Optometry 02/16/25February [address] [place] [address] 3rd [place] [address] Gastroenterology 04/20/25 Dr. Nimo Sellers Psychiatry 08/09/25 documented as of this encounter
--- OUTSIDE RECORDS SUMMARY | 2025-08-29 18:28 | XMS_ITS | Encounter Summary ---
Author Organization [employer] Address 75 [facility] 7t [place] [address] Care Team Providers Care Child Care Director Name Role Phone Libra Barone MD Primary Care Provider + [phone] Malu Medina PharmD Unavailable [phone] Tamie Vega OD Unavailable February Unavailable Encounter Details Date Type Department Care Team (Latest Contact Info) Description 10/09/[address] [facility] CONVERSIONS Dental, Provider, DDS Social History [...] 10/10/2025 3:00 PM EST Medication Management [facility] MEDICINE [address] [place] [address] [phone] Malu Medina, PharmD 230 [place], [place] [phone] 11/08/2025 3:15 PM EST Office Visit [facility] MEDICINE [address] [place] [address] [phone] Libra Barone MD 230 [place], [place] [phone] documented as of this encounter Visit Diagnoses Not on filedocumented in this encounter Care Teams Child Care Director Relationship Specialty Start Date End Date Libra Barone MD [address] [place] [address] PCP - General Family Medicine 11/23/18 Malu Medina, LisaD [address] [place] [address] Pharmacist Internal Medicine 05/09/24 Tamie Vega OD [address] [place] [address] Optometry 02/16/[address] [place] [address] 3rd [place] [address] Gastroenterology 04/20/25 Dr. Nimo Sellers Psychiatry 08/09/25 documented as of this encounter
--- OUTSIDE RECORDS SUMMARY | 2025-08-29 18:28 | XMS_ITS | Encounter Summary ---
Author Organization [employer] Address 75 [facility] 7t [place] [address] Care Team Providers Care Fire Sprinkler Designer Name Role Phone Libra Barone MD Primary Care Provider + [phone] Malu Medina PharmD Unavailable Tamie Vega OD Unavailable [phone] February Unavailable Encounter Details Date Type Department Care Team (Late st Contact Info) Description 08/24/2025 Refill [facility] MEDICINE 230 [place], [place] [phone] Libra Barone MD 230 [place], [place] [phone] Benign hypertension Social History Tobacco Use Types [...] Description 10/10/2025 3:00 PM EST Medication Management [facility] MEDICINE [address] [place] [address] Malu Medina PharmD [address] [place] [address] 11/08/2025 3:15 PM EST Office Visit [facility] MEDICINE [address] [place] [address] Libra Barone MD [address] [place] [address] documented as of this encounter Goals Goal Patient Goal Type Associated Problems Recent Progress Patient-Stated? Author Blood Pressure < 140/90 Blood Pressure 149/75(2024 2:40 PM EDT) No Malu Mckinnon, PharmD Hemoglobin A1c < 7 Result Component 7(08/09/2025 9:12 AM EDT) No Malu Mckinnon PharmD documented as of this encounter Visit Diagnoses Diagnosis Benign hypertension Essential hypertension, benign documented in this encounter Additional Health Concerns Assessment Noted Time PHQ-9 Depression Total Score: 6 08/09/20 25 9:10 AM EDT documented as of this encounter Care Teams Fire Sprinkler Designer Relationship Specialty Start Date End Date Libra Barone MD 230 [place] [address] PCP - General Family Medicine 11/23/18 Malu Medina, LisaD [address] [place] [address] Pharmacist Internal Medicine 05/09/24 Tamie Vega OD [address] [place] [address] Optometry 02/16/[address] [place] [address] 3rd [place] [address] Gastroenterology 04/20/25 Dr. Nimo Sellers Psychiatry 08/09/25 documented as of this encounter
--- OUTSIDE RECORDS SUMMARY | 2025-08-29 18:28 | XMS_ITS | Encounter Summary ---
Author Organization [employer] Address 75 [facility] 7t [place] [address] Care Team Providers Care Geology Technician Name Role Phone Libra Barone MD Primary Care Provider + [phone] Malu Medina PharmD Unavailable GaryTamie kevin OD Unavailable February Unavailable Reason for Visit * Reason Onset Date Comments October Recalls 08/28/2025 Encounter Details Date Type Department Care Team ([facility] st Contact Info) Description 08/28/2025 Telephone [facility] MEDICINE 230 [place], [place] [phone] Libra Barone MD 230 [place], [place] [phone] October Recalls Social History Tobacco Use Types Packs/Day Years [...] encounter Miscellaneous Notes * Telephone Encounter - Adelaide Bartholomew MA - 08/28/2025 9:24 AM EDT ..Telephone call to patient to schedule the following recall: Visit type: Follow up Appointment notes: HTN Patient agree to appointment on 11/08/2025 at 3:15 PM with Lizabeth. documented in this encounter Plan of Treatment Upcoming Encounters Date Type Department Care Team (Late st Contact Info) Description 10/10/2025 3:00 PM EST Medication Management [facility] MEDICINE [address] [place] [address] Malu Medina, PharmD 230 [place] [address] 11/08/2025 3:15 PM EST Office Visit [facility] MEDICINE [address] [place] [address] Libra Barone MD 230 [place] [address] documented as of this encounter Goals Goal Patient Goal Type Associated Problems Recent Progress Patient-Stated? Author Blood Pressure < 140/90 Blood Pressure 149/75(2024 2:40 PM EDT) No Malu Mckinnon, PharmChel Hemoglobin A1c < 7 Result Component 7(08/09/2025 9:12 AM EDT) No Malu Mckinnon PharmD documented as of this encounter Visit Diagnoses Not on filedocumented in this encounter Additional Health Concerns Assessment Noted Time PHQ-9 Depression Total Score: 6 08/09/20 9:10 AM EDT documented as of this encounter Care Teams Geology Technician Relationship Specialty Start Date End Date Libra Barone MD [address] [place] [address] PCP - General Family Medicine 11/23/18 Malu Mdeina PharmD [address] [place] [address] Pharmacist Internal Medicine 05/09/24 Tamie Vega OD [address] [place] [address] Optometry 02/16/25 Ming Tanya [address] [place] [address] 3rd [place] [address] Gastroenterology 04/20/25 Dr. Nimo Sellers Psychiatry 08/09/25 documented as of this encounter
--- OUTSIDE RECORDS SUMMARY | 2025-08-29 18:28 | XMS_ITS | Encounter Summary ---
Author Organization [employer] Address [address] [facility] [address] 7t [place] [address] Care Team Providers Care Mri Technologist Name Role Phone Libra Barone MD Primary Care Provider +- [phone] Malu Medina PharmD Unavailable [phone] Gary, Tamie OD Unavailable [phone] February Unavailable Encounter Details Date Type Department Care Team (Latest Contact Info) Description 08/29/2025 Travel Social History Tobacco Use Types Packs/Day [...] Description 10/10/2025 3:00 PM EST Medication Management [address] [address] Malu Medina, PharmD [address] [place] [address] 11/08/2025 3:15 PM EST Office Visit [address] [address] Libra Barone MD [address] [place] [address] documented as of this encounter Goals Goal [...] documented as of this encounter Care Teams Mri Technologist Relationship Specialty Start Date End Date Libra Barone MD [address] [place] [address] [place] [address] PCP - General Family Medicine 11/23/18 Malu Medina, Becky 230 [place] [address] Pharmacist Internal Medicine 05/09/24 Tamie Vega OD [address] [place] [address] [phone] Optometry 02/16/25February [address] [place] [address] 3rd Floor [place], [place] [phone] Gastroenterology 04/20/25 Dr. Nimo Sellers Psychiatry 08/09/25 documented as of this encounter
== END 2025-08-29 15:18 | disposition home or self-care (01) ==
LOC: HO.HHCX 15:17
PROVIDERS: Visit Provider Internal Medicine
DX: J40 Bronchitis, not specified as acute or chronic (principal)
CPT/HCPCS: 71046

== ENCOUNTER → 2025-08-29 15:18 | Outpatient (BNV) | payer OTHER, SELFPAY | PROVIDERS: Visit Provider Radiology Diagnostic Radiology | DX: R06.89 Other abnormalities of breathing (principal) | CPT/HCPCS: 71046 ==

== ENCOUNTER 2025-09-07 06:53 | Emergency (ER) | payer OTHER, SELFPAY ==
--- NOTE | ~2025-09-07 | US_ITS ---
EXAMINATION: US PELVIS CLINICAL INFORMATION: Left lower quadrant pain. COMPARISON: June 30, 2024. Correlated to CT abdomen and pelvis dated July 28, 2025. TECHNIQUE: Ultrasound of the pelvis is performed using both transabdominal and transvaginal transducers along with Doppler. Transvaginal imaging is performed due to inadequate visualization transabdominally. FINDINGS: Uterus: The uterus is in retroversion flexion and measures 6 x 4 x 4 cm. The double wall endometrial thickness is noted dictated on this examination . There is a 2.6 cm well-circumscribed rounded hyperechoic lesion within the fundus of the uterus. No discrete calcifications. The endometrial stripe is not identified. Adnexa: The ovaries are identified with color Doppler flow. No gross free fluid in the cul-de-sac. Fluid collections. Right ovary measures 1.4 x 1.1 x 1.3 cm. Volume: 1.1 cc. No solid or cystic lesion. Left ovary measures 1.2 x 0.9 x 0.7 cm. Volume: 0.4 cc. No solid or cystic lesion. US/US pelvic ovarian doppler IMPRESSION: No ovarian torsion. 2.6 cm, predominantly fat uterine lesion in the fundus. 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 Electronically signed by: Bautista Calvillo MD 09/07/2025 10:33 AM EDT
--- NOTE | ~2025-09-07 | XR_ITS ---
EXAMINATION: XR CHEST CLINICAL INFORMATION: cough COMPARISON: August 29, 2025. TECHNIQUE: PA and lateral views. FINDINGS: Pulmonary reticular nodular pattern. Hyperinflated lungs. No consolidation, pleural effusion or thorax. Cardiomediastinal silhouette size is normal. Multilevel thoracolumbar spondylosis. S-shaped curvature of the thoracolumbar spine. Vascular clips in the upper abdomen seen on the lateral projection. XR/XR chest 2V IMPRESSION: Concerning chronic interstitial lung disease without acute airspace disease. Electronically signed by: Bautista Calvillo MD 09/07/2025 08:13 AM EDT
--- NOTE | ~2025-09-07 | US_ITS ---
EXAMINATION: US PELVIS CLINICAL INFORMATION: Left lower quadrant pain. COMPARISON: June 30, 2024. Correlated to CT abdomen and pelvis dated July 28, 2025. TECHNIQUE: Ultrasound of the pelvis is performed using both transabdominal and transvaginal transducers along with Doppler. Transvaginal imaging is performed due to inadequate visualization transabdominally. FINDINGS: Uterus: The uterus is in retroversion flexion and measures 6 x 4 x 4 cm. The double wall endometrial thickness is noted dictated on this examination . There is a 2.6 cm well-circumscribed rounded hyperechoic lesion within the fundus of the uterus. No discrete calcifications. The endometrial stripe is not identified. Adnexa: The ovaries are identified with color Doppler flow. No gross free fluid in the cul-de-sac. Fluid collections. Right ovary measures 1.4 x 1.1 x 1.3 cm. Volume: 1.1 cc. No solid or cystic lesion. Left ovary measures 1.2 x 0.9 x 0.7 cm. Volume: 0.4 cc. No solid or cystic lesion. US/US pelvic and transvaginal IMPRESSION: No ovarian torsion. 2.6 cm, predominantly fat uterine lesion in the fundus. 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 Electronically signed by: Bautista Calvillo MD 09/07/2025 10:33 AM EDT
[2025-09-07 07:02] VITALS: BP 111/55; PULSE 57; RESP 18; TEMP 36.5; O2SAT 96; BMI 32.8
--- NOTE | 2025-09-07 07:03 | ED.URI ---
HPI - URI/Sore Throat General Chief Complaint: General Medical Stated Complaint: bad cough Time Seen by Provider: 09/07/25 07:02 Source: patient Mode of arrival: ambulatory Limitations: no limitations History of Present Illness ED Provider: Cassy Cordova PA-C HPI Narrative: 65 yo female with history of GERD, gallstone pancreatitis, HTN, HLD, DM who presents to the ER for evaluation of a cough for the last 1 week along with left ovarian pain x1 week. She reports her cough is productive of brown phlegm sometimes. She has coughing fits she gets short of breath. She denies associated chest pain, fever, chills, nausea, vomiting, sore throat, runny nose. She does report bilateral ear pain. Denies sick contacts. She quit smoking 1 week ago. She has no diagnosis of COPD or asthma, takes an inhaler as needed, does not know the name. She reports pain in her left ovary for the last 1 week. She reports it is bothersome, aching pain, it comes and goes. She states last night in her brief she had a small amount of blood. She is unsure if his from her vagina or from her urine. It is new. She denies any vaginal discharge otherwise. No dysuria. She reports incontinence of urine with coughing. She has not been to OBGYN in several years. She denies any diarrhea or constipation. MD elicited complaint: cough and other (Left-sided pelvic pain) Pertinent past history: other (Active smoker) Onset (ago): week(s) (1) Consistency: intermittent Severity: moderate Description of mucous: other (Brown) Able to tolerate fluids by mouth: Yes Exacerbating factors: nothing Relieving factors: nothing Associated symptoms: cough, shortness of breath and abdominal pain Treatments prior to arrival: none Related Data Home Medications ?Medication ?Instructions ?Recorded ?Confirmed levothyroxine 75 mcg tablet 75 mcg PO DAILY@0630 05/23/22 07/28/25 sertraline 100 mg tablet 150 mg PO DAILY 05/23/22 07/28/25 atenolol 25 mg tablet 25 mg PO DAILY 03/24/23 07/28/25 fluticasone propionate 50 2 spray intranasal DAILY 03/24/23 07/28/25 mcg/actuation nasal spray,suspension bupropion HCl 150 mg 24 hr tablet, 150 mg PO DAILY 04/20/25 07/28/25 extended release rosuvastatin 20 mg tablet 20 mg PO BEDTIME 04/20/25 07/28/25 bupropion HCl 300 mg 24 hr tablet, 300 mg PO DAILY 07/18/25 07/28/25 extended release fluticasone furoate 100 1 inh inhalation DAILY 07/18/25 07/28/25 mcg/actuation blister powder for inhalation (Arnuity Ellipta) metformin 500 mg tablet,extended 500 mg PO DAILY@1700 07/18/25 07/28/25 release 24 hr valsartan 80 mg tablet 80 mg PO DAILY 07/18/25 07/28/25 pantoprazole 40 mg tablet,delayed 40 mg PO BID 08/01/25 08/01/25 release Previous Rx's ?Medication ?Instructions ?Recorded hydrocortisone 2.5 % topical cream 1 appl FL BID hemorrhoids #30 grams 06/20/25 with perineal applicator (Proctosol HC) oxycodone 5 mg tablet 5 mg PO Q4H PRN pain (scale score 07/19/25 7-10) #26 tabs dicyclomine 20 mg tablet 20 mg PO TID 30 days #90 tabs 08/01/25 docusate sodium 100 mg capsule 100 mg PO BID #30 caps 08/01/25 (Colace) metoclopramide HCl 10 mg tablet 10 mg PO TIDAC #90 tabs 08/01/25 (Reglan) simethicone 180 mg capsule 180 mg PO QID #120 caps 08/01/25 albuterol sulfate 90 mcg/actuation 2 puff inhalation QID PRN 09/07/25 aerosol inhaler (Ventolin HFA) shortness of breath or wheezing #6.7 grams budesonide-formoterol HFA 80 1 puff inhalation BID #10.2 grams 09/07/25 mcg-4.5 mcg/actuation aerosol inhaler (Symbicort) guaifenesin 1,200 mg tablet, 1,200 mg PO BID #14 tabs 09/07/25 extended release 12 hr (Mucus Relief ER) metronidazole 500 mg tablet 500 mg PO BID 7 days #14 tabs 09/07/25 Allergies Allergy/AdvReac Type Severity Reaction Status Date / Time No Known Allergies (No Known Allergy Verified 09/07/25 07:04 Allergies*) Review of Systems Review of Systems: Yes all other systems are reviewed and are negative [facility] Past Medical History Medical History (Updated 09/07/25 @ 10:[address]) Abdominal bloating Abdominal cramping Transaminitis Postmenopausal bleeding Unsatisfactory cervical Papanicolaou smear Chronic idiopathic constipation Urinary frequency Diverticulitis Epigastric pain COVID-19 Well woman exam Bacterial vaginosis Uterine mass COVID-19 Well woman exam Smoker Bacterial vaginosis Hypertension Tubular adenoma of colon LLQ abdominal pain 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 Gastritis Surgical History (Updated 08/07/25 @ 10:06 by Vitaliy Manzo PA-C) S/P laparoscopic cholecystectomy Hx laparoscopic cholecystectomy Hx of hernia repair History of esophagogastroduodenoscopy (EGD) Hx of colonoscopy Family History Family History Father Family history of prostate problems Colon cancer Mother Tumor Social History Social History Household Members: None Housing: House Do you presently have visiting nurse or other home services: Yes (THERMOPLASTIC TECHNICIAN; 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, cooking) Alcohol intake: never Patient Tobacco Use Status: Never used Tobacco Tobacco use type: Cigarette Cigarettes Per Day: 2 Years Smoked: 20 Smoked in Last 30 Days: Yes e-Cigarette/Vaping Use: Never Used Second Hand Smoke Exposure: No Advance Directives: Yes Advance Directives on File: Yes Advance Directives Date on File: 07/31/25 Do you have a plan to hurt others: No Plan service: No Current occupational status: disabled Physical Exam Exam: Exam: Appearance: Alert. Oriented X3. No acute distress. Head: normocephalic, atraumatic. Eyes: Pupils equal, round and reactive to light. ENT: Pharynx normal. No tonsillar swelling or exudate. Neck: Normal inspection. Neck supple. No LAD CVS: Normal heart rate and rhythm. Pulses normal. Respiratory: No respiratory distress. Breath sounds with expiratory wheeze in the RML/RUL, no rhonchi or rales. speaking in complete sentences. Abdomen: Soft with tenderness in the left pelvic area with some guarding, no rebound, no palpable masses. +BS x4 pelvic: Normal visualization of the external genitalia, no lesions. Pelvic exam with a moderate amount of thin white, off-white discharge, with some mild generalized discomfort. Normal appearance of the cervical os, no vaginal bleeding noted. No cervical motion tenderness on exam Skin: Skin warm and dry. Normal skin color. Normal skin turgor. No rashes. Extremities: No lower extremity edema. No joint swelling. Neuro/psych: Oriented X 3. grossly normal, nonfocal. Normal speech and cognition. Vital Signs: Vital Signs: Last Vital Signs Temp 97.7 F 09/07/25 07:02 Pulse 57 09/07/25 07:02 Resp 18 09/07/25 07:02 BP 111/55 L 09/07/25 07:02 Pulse Ox 96 09/07/25 07:02 O2 Del Method Room Air 09/07/25 07:02 BMI result Body Mass Index 32.8 Medical Decision Making Medical Decision Making MDM Narrative: 65 yo female presenting with cough x1 week and left pelvic pain x1 week. VS are stable. no respiratory distress. She has a mild expiratory wheeze in the left middle lobe and left upper lobe. Chest x-ray today is showing some chronic interstitial disease but no focal infiltrate, no effusion. She tested negative for COVID and flu. She most likely has bronchitis, concern for chronic underlying lung disease given her smoking history. Will prescribe inhaled corticosteroid, prn albuterol and mucolytic. Encouraged follow-up with her primary care doctor, continue smoking cessation. Her pelvic ultrasound does not show any ovarian abnormalities. She has a probable fibroid. Pelvic exam with moderate amount of white vaginal discharge. She tested positive for BV. This can explain her pelvic pain. Will treat with oral metronidazole. healthcare interpreter used to describe her positive BV test, other test results, diagnoses, treatment and return precautions. Patient expressed understanding and is stable for discharge home Differential Diagnosis Differential Diagnoses: The differential diagnosis associated with the presentation includes covid, flu, rsv, other viral syndrome, bronchitis, pneumonia, COPD exacerbation left ovarian cyst, fibroid, BV, STI, UTI, dysfunctional uterine bleeding, can not rule out uterine malignancy Admission/Observation Consideration of admission/observation: Escalation of care including admission/observation considered Lab Data [facility] Lab Attestation statement: I reviewed the patient's lab results. viral swab negative Labs: Lab Results 09/07/25 09/07/25 09/07/25 Range/Units 07:16 09:14 11:09 Urine Color Yellow Urine Appearance Clear Urine pH 6.0 (5.0-9.0) Ur Specific [place] 1.015 (1.005-1.025) Urine Protein Negative (Neg-Trace) mg/dL Urine Glucose (UA) Negative (Negative) mg/dL Urine Ketones Negative (Negative) mg/dL Urine Blood Negative (Negative) Urine Nitrite Negative (Negative) Ur Leukocyte Esterase Negative (Negative) Chlam trachomat DNA PCR NOT DETECTED (Not Detect.) COVID-19 ([facility]) Negative (Negative) COVID-19 Clin Com See Note Influenza Type A (MAYTE) Negative (Negative) Influenza Type B (MAYTE) Negative (Negative) Influenza A & B Note See Note N.gonorrhoeae DNA (PCR) NOT DETECTED (Not Detect.) T. vaginalis (PCR) NOT DETECTED (Not Detect) Bact vaginosis (PCR) POSITIVE A (Negative) C. krusei/glabrata (PCR) NOT DETECTED (Not Detect) Nuris group (PCR) NOT DETECTED (Not Detect) Independent Interpretation I performed an independent interpretation of an: Plain X-Ray and Ultrasound Interpretation: Pelvic ultrasound without any obvious ovarian cysts appreciated Chest x-ray with no focal infiltrate or effusion Radiology Impression Discussion of test interpretation with radiology: I have reviewed the radiologist's reading. External Record Review External record reviewed: Inpatient record, Office record and Outpatient record Tests considered The following testing was considered but not selected: CT abd/pelvis considered, low suspicion for intra-abdominal process Prescription Management I considered prescription management with: Pain Medication and Antibiotic Chronic Conditions Patient?s care impacted by: Diabetes and Hypertension Discharge Plan Discharge Clinical Impression: Bacterial vaginosis Patient Disposition: Home, Self-Care Instructions: Bacterial Vaginosis (ED), Acute Bronchitis (ED) Additional Instructions: CXR did not show any evidence of pneumonia you tested negative for covid and flu pelvis ultrasound showed a possible fibroid but no ovarian abnormalities you tested positive for bacterial vaginosis (BV) which is an overgrowth of the normal bacteria in the vagina. this can be causing your pelvic pain Take the prescribed antibiotics as directed, complete the entire course and do not miss any doses your urine test shows no infection follow up with your nitrator operator and PCP continue smoking cessation take mucinex for cough and use the prescribed inhalers as directed If you develop new or worsening symptoms call 911 or come back to the ER for further evaluation. Prescriptions: New metronidazole 500 mg tablet 500 mg PO BID 7 Days Qty: 14 0RF guaifenesin [Mucus Relief ER] 1,200 mg tablet extended release 12hr 1,200 mg PO BID Qty: 14 0RF albuterol sulfate [Ventolin HFA] 90 mcg/actuation HFA aerosol inhaler 2 puff inhalation QID PRN (Reason: shortness of breath or wheezing) Qty: 6.7 0RF budesonide-formoterol [Symbicort] 80-4.5 mcg/actuation HFA aerosol inhaler 1 puff inhalation BID Qty: 10.2 0RF No Action valsartan 80 mg tablet 80 mg PO DAILY metformin 500 mg tablet extended release 24 hr 500 mg PO DAILY@1700 bupropion HCl 300 mg tablet extended release 24 hr 300 mg PO DAILY fluticasone furoate [Arnuity Ellipta] 100 mcg/actuation blister with device 1 inh inhalation DAILY oxycodone 5 mg tablet 5 mg PO Q4H PRN (Reason: pain (scale score 7-10)) Qty: 26 0RF Rx Instructions: Partial Fill upon patient request. atenolol 25 mg tablet 25 mg PO DAILY fluticasone propionate 50 mcg/actuation spray,suspension 2 spray intranasal DAILY levothyroxine 75 mcg tablet 75 mcg PO DAILY@0630 sertraline 100 mg tablet 150 mg PO DAILY bupropion HCl 150 mg tablet extended release 24 hr 150 mg PO DAILY rosuvastatin 20 mg tablet 20 mg PO BEDTIME hydrocortisone [Proctosol HC] 2.5 % cream with perineal applicator 1 appl FL BID Qty: 30 6RF Rx Instructions: BE SURE TO INCLUDE RECTAL APPICATOR!! pantoprazole 40 mg tablet,delayed release (DR/EC) 40 mg PO BID metoclopramide HCl [Reglan] 10 mg tablet 10 mg PO TIDAC Qty: 90 6RF simethicone 180 mg capsule 180 mg PO QID Qty: 120 6RF docusate sodium [Colace] 100 mg capsule 100 mg PO BID Qty: 30 0RF dicyclomine 20 mg tablet 20 mg PO TID 30 Days Qty: 90 6RF Print Language: Ken[place]
--- OUTSIDE RECORDS SUMMARY | 2025-09-07 07:21 | XMS_ITS | Clinical Summary ---
Author Organization [employer] Address [address] [place] [address] Care Team Providers Care Manager Neonatal Name Role Phone Libra Barone MD Primary Care Provider [phone]- [phone] Malu Medina PharmD Unavailable Gary Tamie OD Unavailable [phone] February Unavailable Allergies Active Allergy Reactions [...] per day. 90 tablet 1 025 Active azithromycin (Zithromax) 250 MG tabletIndications :Bronchitis [...] and at bedtime as needed for bloating 09/17/ 2025 Discontinued(M ed list cleanup (will not trigger [...] eorder (will not trigger notification to Pharmacy)) metFORMIN XR (Glucophage-XR) 500 MG 24 hr tabletIndications :Diabetes mellitus without complication (HCC) Take 1 tablet (500 mg) by mouth with breakfast and with evening meal. Do not crush, chew, or split. 180 tablet 3 025 2024 Discontinued(M ed list cleanup (will not trigger notification to Pharmacy)) hydrocortisone 2.5 % cream APPLY 1 APPLICATION RECTALLY TWICE DAILY NEEDED FOR HEMORRHOIDS 025 2024 Discontinued dicyclomine (Bentyl) 20 MG tablet Take 1 tablet by mouth 3 times daily. 025 2024 Discontinued(M ed list cleanup (will not trigger notification to Pharmacy)) predniSONE (Deltasone) 20 MG tabletIndications :Bronchitis Take 2 tablets (40 mg) by mouth Once per day for 5 days. 10 tablet 025 2024 Active Problems Patient Care Coordination No te Formatting of this note migh t be different from the original. Enrolled in [facility] DM clinic with Lisa LatifD, [facility] Problem Noted Date Diagnosed Date Viral upper respiratory tract infection 08/29/20 25 Hx laparoscopic cholecystectomy 08/09/2025 Overview (08/09/2025): [facility] (07/18/25-07/19/25) Abdominal US 07/18/25 showed gallstones/sludge, possibly early cholecystitis. Admitted to surgical service for further treatment of biliary colic. Patient elected to proceed with laparoscopic cholecystectomy. [facility] (07/22/25-07/24/25) Pt returned for evaluation s/p laparoscopic [...] advanced. Patient discharged home in stable condition. [facility] (07/30/25-07/31/25) Pt presented for evaluation of worsening abdominal pain and nausea. Admitted for treatment of likely gallstone pancreatitis. Patient underwent ERCP with multiple sweeps with balloon, no stones seen. LFTs continually down trended and improved, bilirubin normalized. Patient felt well on day of discharge and was tolerating solid diet. Assessment & Plan (08/09/2025 9:51 AM EDT): [facility] (07/18/25-07/19/25) Abdominal US 07/18/25 showed gallstones/sludge, possibly early cholecystitis. Admitted to surgical service for further treatment of biliary colic. Patient elected to proceed with laparoscopic cholecystectomy. [facility] (07/22/25-07/24/25) Pt returned for evaluation s/p laparoscopic [...] advanced. Patient discharged home in stable condition. [facility] (07/30/25-07/31/25) Pt presented for evaluation of worsening [...] at [facility] 321/24. -co testing done, recommended ultrasound to measure [...] by Dr. 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 Recommended to Gyne Onc consult Installer Inspector Final Onc referral for a consult placed by Dr. Alonso 09/08/24 Seen by router operator radial 09/21/24 MRI recommended and possible surery in the future. Follow up after MRI. (Installer Inspector Final noted does not have location of signature of provider) -Saw ELECTRICIAN WIRING at [facility] 09/21 for intake and a Televist 10/10/24. Per note by Dr. Rosanna Lowe who noted size and growth is stable dating back to 2020, recommending annual pelvic US. Assessment & Plan (04/19/2025 2:45 PM EDT): Seen by Dr. Alonso at [facility] 730/. -co testing done, recommended ultrasound to [...] 1.7-2.7 cm. Recommended to Gyne Onc consult Installer Inspector Final Onc referral for a consult placed by Dr. Alonso 09/08/24 Seen by router operator radial 09/21/24 MRI recommended and possible surery in the future. Follow up after MRI. (Installer Inspector Final noted does not have location of signature of provider) -Saw ELECTRICIAN WIRING at [facility] 09/21 for intake and a Televist 10/10/24. [...] due after 04/19/26 -eye care facilitated by [facility] -dental home is [facility] -health care proxy given 04/19/25 and filed 08/09/25 Assessment & Plan (08/09/2025 9:51 AM EDT): -next comprehensive annual evaluation due after 04/19/26 -eye care facilitated by [facility] -dental home is [facility] -health care proxy given 04/19/25 and filed 08/09/25 Assessment & Plan (04/19/2025 2:32 PM EDT): -next comprehensive annual evaluation due after 04/19/26 -eye care facilitated by [facility] -dental home is [facility] -health care proxy given and filed [...] fat, and sodium. Exercise counseling 03/28/2025 04/19/20 25 Assessment & Plan (03/28/2025 2:15 PM EDT): [...] Description 08/29/2025 3:00 PM EDT Office Visit [facility] [address] [place] [address] Ivana Fernando MD Bronchitis (Primary Dx) 08/29/2025 Results Follow-Up [facility] [address] [place] [address] Ivana Fernando MD XR Chest 2 Views 08/29/2025 Travel 08/28/2025 Telephone [facility] [address] [place] [address] Libra Barone MD October Recalls 08/28/2025 Travel 08/24/2025 Refill [facility] [address] [place] [address] Libra Barone MD Benign hypertension 08/24/2025 Refill [facility] [address] [place] [address] Malu Medina PharmD Benign hypertension 08/15/[address] [address] Malu Medina PharmChel 08/15/2025 Travel 08/09/2025 9:00 AM EDT Office Visit [facility] [address] [place] [address] Libra Barone MD Hx laparoscopic cholecystectomy (Primary Dx); Transaminitis; Benign hypertension; Diabetes mellitus without complication (CMS/HCC); Positive depression screening; Class 1 obesity due to excess calories with serious comorbidity and body mass index (BMI) of 33.0 to 33.9 in adult; Dietary counseling; Exercise counseling; Other specified health status; Depressive disorder; Irritable bowel syndrome, unspecified type 08/09/2025 Orders Only [facility] [address] [place] [address] Libra Barone MD 08/09/2025 Travel 08/08/2025 Telephone [facility] [address] [place] [phone] Libra Barone MD CHART PREP 08/02/2025 Refill [facility] [address] [place] [address] Libra Barone MD Hyperglycemia, unspecified; Diabetes mellitus without complication (CMS/HCC) 07/28/2025 Orders Only [facility] External Provider, [facility] 07/28/2025 Telephone [facility] [address] [place] [address] Libra Barone MD FYI 07/27/2025 Orders Only GENERIC EXTERNAL DATA DEPARTMENT Provider, Generic External Data 07/22/2025 Orders Only [facility] External Provider, [facility] 07/21/2025 Orders Only GENERIC EXTERNAL DATA DEPARTMENT Provider, Generic External Data 07/20/2025 Patient Outreach [facility] [address] [place] [address] Libra Barone MD Transition Of Care (Tcm) (HDF scheduled. ) 07/20/2025 Telephone [facility] [address] [place] [phone] Libra Barone MD Medication Question 07/18/2025 Orders Only GENERIC EXTERNAL DATA DEPARTMENT Provider, Generic External Data Abdominal pain, unspecified abdominal location (Primary Dx) 07/13/2025 Refill [facility] [address] [place] [address] Malu Medina, PharmD Benign hypertension 06/26/2025 Orders Only [address] [address] Libra Barone MD 06/23/[address] [phone] Libra Barone MD from Last 3 Months Immunizations Immunization Administration [...] 3:00 PM EST Medication Management [facility] [address] [place] [address] Malu Medina, LisaD [address] [place] [phone] 11/08/2025 3:15 PM EST Office Visit [address] [address] Libra Barone MD [address] [place] [address] [phone] Health Maintenance Due Date Last Done Comments [...] PM EDT Narrative 08/29/2025 4:10 PM EDT [address] [address] XRay Report Signed Patient: Sridevi Pruitt I MR#: [id number] 2336 : 1960 Acct:[id number] Age/Sex: 65 / F ADM Date: 08/29/25 Loc: HO.HHCX Attending Dr: Ivana Beltran MD Ordering Physician: Ivana Fernando MD Date of Service: 08/29/25 Procedure(s): XR chest 2V Accession Number(s): [id number] cc: Ivana Fernando MD Reason for Exam: [...] 08/29/25 1608 DD/ 1545 TD/TT: 08/29/25 1546 Marketing Campaign Analyst: Procedure Note Donotuseinterpreter, Image - 08/29/2025 [facility] [address] [place] [address] XRay Report Signed Patient: Sridevi Pruitt IMR#: [id number] 2336 : 9Acct:[id number] Age/Sex: 65 / FADM Date: 08/29/25 Loc: HO.HHCX Attending Dr: Ivana Beltran MD Ordering Physician: Ivana Fernando MD Date of Service: 08/29/25 Procedure(s): XR chest 2V Accession Number(s): [id number] cc: Ivana Fernando MD Reason for Exam: [...] OV> 08/29/25 1608 DD/ 1545 TD/TT: 08/29/25 154 Marketing Campaign Analyst: us Ivana Beltran MD IMG XR PROCEDURES Fin al Result * POCT Rapid Influenza B CUI ID NOW (08/29/2025 3:21 PM EDT) Influenza B Negative Negative, Indeterminate [facility] QC Media Lot # [id number] [facility] Lot# Expiration Date [facility] Swab 08/29/2025 3:21 PM EDT us Ivana Beltran MD POINT OF CARE TEST EN TER/EDIT ORDERABLES Final Result Performing Organization Address [facility] Co de Phone Number [facility] [address] [place] [phone] * POCT Rapid Influenza A CUI ID NOW (08/29/2025 3:20 PM EDT) Influenza A Negative Negative, Indeterminate [facility] QC Media Lot # [id number] [facility] Lot# Expiration Date 426 [facility] Swab 08/29/2025 3:20 PM EDT us Ivana Beltran MD POINT OF CARE TEST EN TER/EDIT ORDERABLES Final Result Performing Organization Address [facility] Co de Phone Number [facility] [address] [place] [phone] * POCT Rapid Covid-19 BinaxNOW (08/29/2025 3:20 PM EDT) Pathologist [facility] Rapid COVID Ag Negative QC Media Lot # [id number] Lot# Expiration Date [id number] Swab 08/29/2025 3:20 PM EDT Ivana Beltran MD POINT OF CARE TEST EN TER/EDIT ORDERABLES Final Result * Albumin, Random Urine W/Creatinine (08/09/2025 9:32 AM EDT) Creatinine, Urine 152.93 mg/dL [facility] Microalbumin Urine 19.0 mg/L [facility] Microalbum Creatinine Ratio Ur 12.4 <30 ug/mg cr [facility] Comment:Albumin/Creatinine R atio Reference Ranges: Normal: < 30 ug/mg creatinine Microalbuminuria: 30 - 300 ug/mg creatinineClinical Albuminuria: > 300 ug/mg creatinine 08/09/2025 9:32 AM EDT 08/09/2025 11:14 AM EDT Libra Barone MD LAB URINE ORDERABLES Final Result Performing Organization Address [facility] de Phone Number [facility] [address] [place] [address] [phone] * (ABNORMAL) Hepatic Function Panel (08/09/2025 9:32 AM EDT) Only the most recent of3 resultswithin the time period is included. Bilirubin, Total 0.5 0.0 - 1.0 mg/dL [facility] Bilirubin, Direct 0.3 0.0 - 0.5 mg/dL [facility] Aspartate Amino Transferase 21 5 - 31 U/L [facility] Alanine Aminotransferase 26 0 - 31 U/L [facility] Total Protein 6.7 6.5 - 8.0 g/dL [facility] Albumin Level 4.2 3.5 - 5.0 g/dL [facility] Alkaline Phosphatase 171(H) 39 - 117 U/L [facility] Blood Venous blood specimen / Unknown 08/09/2025 9:32 AM EDT 08/09/2025 11:14 AM EDT Libra Barone MD LAB BLOOD ORDERABLES Final Result Performing Organization Address City/[facility] Co de Phone Number [facility] [address] [place] [phone] * (ABNORMAL) POCT Hgb A1c (08/09/2025 9:12 AM EDT) Hemoglobin A1C 7.0(A) 4.0 - 5.7 % QC Media Lot # [id number] Lot# Expiration Date ,[id number],[id number] Blood 08/09/2025 9:12 AM EDT Libra Barone MD POINT OF CARE TEST ENTER/E DIT ORDERABLES Final Result * (ABNORMAL) POCT Glucose (08/09/2025 9:12 AM EDT) Glucose Blood, POC 225(A) 60 - 200 mg/dL QC Media Lot # [id number] Lot# Expiration Date [id number] Blood Capillary blood specimen / Unknown 08/09/2025 9:12 AM EDT Libra Barone MD POINT OF CARE TEST ENTER/E DIT ORDERABLES Final Result * FL Guidance in OR (07/28/2025 1:53 PM EDT) Anatomical Region Laterality Modality X-Ray Angiograph y 07/28/2025 1:53 PM EDT Narrative 07/28/2025 2:48 PM EDT [place] [address] Fluoroscopy Report Signed Patient: Sridevi Pruitt I MR#: [id number] 2336 : 1960 Acct:[id number] Age/Sex: 65 / F ADM Date: 07/28/25 Loc: HO.S3 354-[address]: Dex Silva MD Ordering Physician: Arya Gutierrez MD Date of Service: 07/28/25 Procedure(s): FL guidance in OR Accession Number(s): [id number] cc: Libra Barone MD; Arya Gutierrez MD [...] 07/28/25 1445 DD/ 1353 TD/TT: 07/28/25 1424 Marketing Campaign Analyst: Procedure Note Donotuseinterpreter, Image - 07/28/[address] [address] Fluoroscopy Report Signed Patient: Sridevi Pruitt IMR#: [id number] 2336 : 9Acct:[id number] Age/Sex: 65 / FADM Date: 07/28/25 Loc: HO.S3 354-[address]: Dex Silva MD Ordering Physician: Arya Gutierrez MD Date of Service: 07/28/25 Procedure(s): FL guidance in OR Accession Number(s): [id number] cc: Libra Barone MD; Arya Gutierrez MD [...] 07/28/25 1445 DD/ 1353 TD/TT: 07/28/25 1424 Marketing Campaign Analyst: us [facility] External Provider IMG IR PROCEDURES Final Result * CT Abdomen Pelvis w/ Contrast (07/28/2025 4:28 AM EDT) Only the most recent of2 resultswithin the time period is included. Anatomical Region Laterality Modality Body, Pelvis, Abdomen Computed T omography 07/28/2025 4:28 AM EDT Narrative 07/28/2025 4:30 AM EDT [place] [address] CT Scan Report Signed Patient: Sridevi Pruitt I MR#: [id number] 2336 : 1960 Acct:[id number] Age/Sex: 65 / F ADM Date: 07/27/25 Loc: HO.ED Attending Dr: Ordering Physician: Lester Santos Date of Service: 07/28/25 Procedure(s): CT abdomen pelvis w IV con Accession Number(s): [id number] cc: Libra Barone MD; Lester Santos Report Number: [id number]: Total DLP = 598.00 mGy-cm Reason for [...] signed by Oleg Marie MD in OV> 09/04/16 429 DD/ 7 TD/TT: 07/28/25427 Marketing Campaign Analyst: Procedure Note Donotuseinterpreter, Image - 07/28/[address] [place] [address] [address] Scan Report Signed Patient: Sridevi Pruitt IMR#: [id number] 2336 : 9Acct:[id number] Age/Sex: 65 / FADM Date: 07/27/25 Loc: HO.ED Attending Dr: Ordering Physician: Lester Santos Date of Service: 07/28/25 Procedure(s): CT abdomen pelvis w IV con Accession Number(s): [id number] cc: Libra Barone MD; Lester Santos Report Number: [id number]: Total DLP = 598.00 mGy-cm Reason for [...] in OV> 07/28/25428 DD/ 7 TD/TT: 07/28/25427 Marketing Campaign Analyst: [facility] External Provider IMG CT PROCEDURES Edited Result - Final * (ABNORMAL) Urinalysis, Complete, with Reflex to Culture (07/27/2025 11:13 PM EDT) Only the most recent of2 resultswithin the time period is included. Color Urine Dark Yellow [facility] Appearance Urine Clear [facility] PH 7.0 5.0 - 9.0 [facility] Glucose Urine UA Negative Negative mg/dL [facility] Urine Blood Negative Negative [facility] Specific Ramsey - Urine 1.010 1.005 - 1.025 [facility] Urine Protein Negative Neg-Trace mg/dL [facility] Urine Ketones Negative Negative mg/dL [facility] Nitrite Urine Negative Negative [facility] Leukocyte Esterase Urine Small (1+)(A) Negative [facility] RBC Urine 0-2 0 - 2 /HPF [facility] Urine WBC 6-10(A) 0 - 5 /HPF [facility] Urine Squamous Epithelial Cell 6-10 0 - 2 /HPF [facility] Urine Bacteria None Seen None Seen [facility] Hyaline Casts, Urine 0-2 0 - 2 /LPF [facility] 07/27/2025 11:1 3 PM EDT 07/27/2025 11:17 PM EDT Narrative [facility] - 07/27/2025 11:46 PM EDT [id number], Clean Catch us Generic External Data Provider LAB URINE ORDERAB LES Final Result [facility] [address] [place] [address] [phone] * (ABNORMAL) CBC auto differential (07/27/2025 8:47 PM EDT) Only the most recent of3 resultswithin the time period is included. White Blood Count 9.0 4.8 - 10.8 X10*3/uL [facility] Red Blood Count 4.60 4.20 - 5.50 X10*6/uL [facility] Hemoglobin 13.7 12.0 - 16.0 g/dl [facility] Hematocrit 40.7 37.0 - 47.0 % [facility] Mean Corpuscular Volume 88.5 80.0 - 98.0 fL [facility] Mean Corpuscular Hemoglobin 29.8 27.0 - 33.0 pg [facility] Mean Corpuscular HGB Conc 33.7 31.0 - 35.0 g/dl [facility] Red Cell Distribution Width 15.3 11.0 - 16.0 % [facility] Platelet Count 328 160 - 400 X10*3/uL [facility] Mean Platelet Volume 10.6 9.4 - 12.3 fL [facility] Neutrophils Percent Auto 62.7 45 - 73 % [facility] Imm Gran Pct Auto 0.7(H) 0.0 - 0.4 % [facility] Lymphocytes Percent Auto 27.3 20 - 40 % [facility] Monocytes Percent Auto 6.6 2 - 11 % [facility] Eosinophils Percent Auto 2.1 0 - 4 % [facility] Basophils Percent Auto 0.6 0 - 2 % [facility] NRBC Pct Auto 0.0 0.0 - 0.2 /100WBC [facility] Neutrophils Absolute Auto 5.7 2.0 - 8.3 x10*3/uL [facility] Imm Gran Abs Auto 0.06(H) 0.00 - 0.03 X10*3/uL [facility] Lymphocytes Absolute Auto 2.5 1.2 - 4.9 X10*3/uL [facility] Monocytes Absolute Auto 0.6 0.1 - 1.2 X10*3/uL [facility] Eosinophils Absolute Auto 0.2 0.0 - 0.4 X10*3/uL [facility] Basophils Absolute Auto 0.1 0.0 - 0.2 X10*3/uL [facility] NRBC Abs Auto 0.000 0.0 - 0.012 X10*3/uL [facility] 07/27/2025 8:47 PM EDT 07/27/2025 8:50 PM EDT us Generic External Data Provider LAB BLOOD ORDERAB LES Final Result Performing Organization Address City/[facility]/ZIP Co de Phone Number [facility] [address] [place] [address] [phone] * (ABNORMAL) Lipase (07/27/2025 8:47 PM EDT) Only the most recent of3 resultswithin the time period is included. Lipase 397(H) 8 - 78 U/L [facility] 07/27/2025 8:47 PM EDT 07/27/2025 8:50 PM EDT Generic External Data Provider LAB BLOOD ORDERAB LES Final Result Performing Organization Address [facility]/ZIP Co de Phone Number [facility] [address] [place] [address] [phone] * (ABNORMAL) Basic Metabolic Panel (07/27/2025 8:47 PM EDT) Only the most recent of2 resultswithin the time period is included. Sodium 140 135 - 145 mmol/L [facility] Potassium 4.2 3.3 - 5.1 mmol/L [facility] Chloride 103 96 - 108 mmol/L [facility] Carbon Dioxide 29 22 - 29 mmol/L [facility] Anion Gap 12 12 - 20 [facility] Urea Nitrogen (BUN) 13 9 - 16 mg/dL [facility] Creatinine, Serum 0.75 0.5 - 1.4 mg/dL [facility] Creatinine Clr Calc Pharmacy 72.4 [facility] Comment:Provided height and weight: 157.48 cm,80.4 kg.eGFR (calculated from the MDRD study equation) and eCrCl(calculated from the Cockcroft-Gault equation) are based ondifferent parameters and may not yield comparable results.If eCrCl result is absurd, please check patient'sheight/weight. Estimated Glomerular Filt Rate >60 [facility] Comment:Chronic Kidney Disea se: Estimated GFR < 60 mL/min/[id number] Kidney Disease: Estimated GFR < 15 mL/min/1.73m2 Glucose 151(H) 60 - 115 mg/dL [facility] Calcium 9.3 8.4 - 10.2 mg/dL [facility] 07/27/2025 8:47 PM EDT 07/27/2025 8:50 PM EDT us Generic External Data Provider LAB BLOOD ORDERAB LES Final Result Performing Organization Address City/State/[facility] Co de Phone Number [facility] [address] [place] [phone] * MR MRCP (07/22/2025 10:17 AM EDT) Anatomical Region Laterality Modality Lower Extremities Left Magnetic Reson ance 07/22/2025 10:1 7 AM EDT Narrative 07/22/2025 10:19 AM EDT [address] [address] Magnetic Resonance Report Signed Patient: Sridevi Pruitt I MR#: [id number] 2336 : 1960 Acct:[id number] Age/Sex: 65 / F ADM Date: 07/22/25 Loc: .S3 346-[address]: Savanah Vega MD Ordering Physician: Savanah Vega MD Date of Service: 07/22/25 Procedure(s): MR MRCP Accession Number(s): [id number] cc: Libra Barone MD; Savanah Vega MD [...] 07/22/25 1018 DD/ 1017 TD/TT: 07/22/25 1017 Marketing Campaign Analyst: Procedure Note Donotuseinterpreter, Image - 07/22/2025 [place] [address] Magnetic Resonance Report Signed Patient: Sridevi Pruitt IMR#: [id number] 2336 : 9Acct:[id number] Age/Sex: 65 / FADM Date: 07/22/25 Loc: .S3 346-[address]: Savanah Vega MD Ordering Physician: Savnaah Vega MD Date of Service: 07/22/25 Procedure(s): MR MRCP Accession Number(s): [id number] cc: Libra Barone MD; Savanah Vega MD [...] 07/22/25 1018 DD/ 1017 TD/TT: 07/22/25 1017 Marketing Campaign Analyst: [facility] External Provider IMG MRI PROCEDURES Final Result * US Abdomen Limited (07/21/2025 11:46 PM EDT) Only the most recent of2 resultswithin the time period is included. Anatomical Region Laterality Modality Abdomen Ultrasound 07/21/2025 11:4 6 PM EDT Narrative 07/21/2025 11:48 PM EDT [place] [address] Ultrasound Report Signed Patient: Sridevi Pruitt I MR#: [id number] 2336 : 1960 Acct:[id number] Age/Sex: 65 / F ADM Date: 07/21/25 Loc: HO.ED Attending Dr: Ordering Physician: Noel Ch MD Date of Service: 07/21/25 Procedure(s): US abdomen limited Accession Number(s): [id number] cc: Libra Barone MD; Noel Ch MD [...] signed by Chris Alcazar MD in OV> 07/21/25 2347 DD/ TD/TT: 07/21/25 234 Marketing Campaign Analyst: Procedure Note Donotuseinterpreter, Image - 07/21/2025 [place] [address] Ultrasound Report Signed Patient: Sridevi Pruitt IMR#: [id number] 2336 : 9Acct:[id number] Age/Sex: 65 / FADM Date: 07/21/25 Loc: HO.ED Attending Dr: Ordering Physician: Noel Ch MD Date of Service: 07/21/25 Procedure(s): US abdomen limited Accession Number(s): [id number] cc: Libra Barone MD; Noel Ch MD [...] signed by Chris Alcazar MD in OV> 07/21/257 DD/ TD/TT: 07/21/252345 Marketing Campaign Analyst: [facility] External Provider IMG US PROCEDURES Edited Result - Final * Partial Thromboplastin Time, Activated (APTT) (07/21/2025 9:11 PM EDT) Partial Thromboplastin Time 28.8 26.7 - 34.1 SEC [facility] 07/21/2025 9:11 PM EDT 07/21/2025 9:19 PM EDT Generic External Data Provider LAB BLOOD ORDERAB LES Final Result Performing Organization Address [facility] Co de Phone Number [facility] [address] [place] [phone] * Prothrombin Time-INR (07/21/2025 9:11 PM EDT) Prothrombin Time 11.9 10.9 - 12.4 SEC [facility] INTERNATIONAL NORM RATIO 1.0 0.9 - 1.1 [facility] Comment:INTERNATIONAL NORMAL IZED RATIO (INR) [...] Final Result Performing Organization Address [facility] Co de Phone Number [facility] [address] [place] [phone] * XR KUB and Upright 2 Views (07/21/2025 8:11 PM EDT) Anatomical Region Laterality Modality Radiographic Courtney ging 07/21/2025 8:11 PM EDT Narrative 07/21/2025 8:13 PM EDT [address] [address] XRay Report Signed Patient: Sridevi Pruitt I MR#: [id number] : 1960 Acct:[id number] Age/Sex: 65 / F ADM Date: 07/21/25 Loc: HO.ED Attending Dr: Ordering Physician: Lester Santos Date of Service: 07/21/25 Procedure(s): XR KUB Accession Number(s): [id number] cc: Libra Barone MD; Lester Santos CLINICAL [...] in OV> 07/21/252011 DD/ 10 TD/TT: 07/21/252010 Marketing Campaign Analyst: Procedure Note Donotuseinterpreter, Image - 07/21/[address] [address] XRay Report Signed Patient: Sridevi Pruitt IMR#: [id number] : 1960cct:[id number] Age/Sex: 65 / FADM Date: 07/21/25 Loc: HO.ED Attending Dr: Ordering Physician: Lester Santos Date of Service: 07/21/25 Procedure(s): XR KUB Accession Number(s): [id number] cc: Libra Barone MD; Lester Santos CLINICAL [...] in OV> 07/21/252011 DD/ 10 TD/TT: 07/21/252010 Marketing Campaign Analyst: [facility] External Provider IMG XR PROCEDURES Final Result * (ABNORMAL) Comprehensive Metabolic Panel (07/21/2025 7:40 PM EDT) Sodium 142 135 - 145 mmol/L [facility] Potassium 4.2 3.3 - 5.1 mmol/L [facility] Chloride 104 96 - 108 mmol/L [facility] Carbon Dioxide 27 22 - 29 mmol/L [facility] Anion Gap 15 12 - 20 [facility] Urea Nitrogen (BUN) 12 9 - 16 mg/dL [facility] Creatinine, Serum 0.66 0.5 - 1.4 mg/dL [facility] Creatinine Clr Calc Pharmacy 84.2 [facility] Comment:Provided height and weight: 157.48 cm,83.915 kg.eGFR (calculated from the MDRD study equation) and eCrCl(calculated from the Cockcroft-Gault equation) are based ondifferent parameters and may not yield comparable results.If eCrCl result is absurd, please check patient'sheight/weight. Estimated Glomerular Filt Rate >60 [facility] Comment:Chronic Kidney Disea se: Estimated GFR < 60 mL/min/1.82x5Fibakg Kidney Disease: Estimated GFR < 15 mL/min/1.73m2 Glucose 166(H) 60 - 115 mg/dL [facility] Calcium 9.6 8.4 - 10.2 mg/dL [facility] Bilirubin, Total 2.2(H) 0.0 - 1.0 mg/dL [facility] Aspartate Amino Transferase 1,210(H) 5 - 31 U/L [facility] Alanine Aminotransferase 892(H) 0 - 31 U/L [facility] Total Protein 7.1 6.5 - 8.0 g/dL [facility] Albumin Level 4.2 3.5 - 5.0 g/dL [facility] Alkaline Phosphatase 377(H) 39 - 117 U/L [facility] 07/21/2025 7:40 PM EDT 07/21/2025 7:43 PM EDT us Generic External Data Provider LAB BLOOD ORDERAB LES Final Result Performing Organization Address City/State/[facility] Co de Phone Number [facility] [address] [place] [phone] * (ABNORMAL) Urinalysis w/reflex microscopic (07/18/2025 10:05 AM EDT) Color Urine Yellow [facility] Appearance Urine Clear [facility] PH 5.5 5.0 - 9.0 [facility] Glucose Urine UA Negative Negative mg/dL [facility] Urine Blood Trace(A) Negative [facility] Specific Ramsey - Urine 1.025 1.005 - 1.025 [facility] Urine Protein Negative Neg-Trace mg/dL [facility] Urine Ketones Negative Negative mg/dL [facility] Nitrite Urine Negative Negative [facility] Leukocyte Esterase Urine Negative Negative [facility] 07/18/2025 10:0 5 AM EDT 07/18/2025 10:08 AM EDT Narrative [facility] - 07/18/2025 10:14 AM EDT Urine, Clean Catch us Generic External Data Provider LAB URINE ORDERAB LES Final Result Performing Organization Address [facility] de Phone Number [facility] [address] [place] [phone] * High Sensitivity Troponin I (07/18/2025 7:55 AM EDT) TROPONIN I HIGH SENSITIVITY <2.7 <3.5 - 17.0 ng/L [facility] Comment:The Cui high sens itivity Troponin-I results should beused in conjunction with other diagnostic information suchas ECG, clinical observations and information, and patientsymptoms to aid in the diagnosis of [place]. 07/18/2025 7:55 AM EDT 07/18/2025 8:42 AM EDT Generic External Data Provider LAB BLOOD ORDERAB LES Final Result Performing Organization Address [facility] de Phone Number [facility] [address] [place] [phone] * US Extremity Non Vascular Left Limited (06/26/2025 1:09 PM EDT) Anatomical Region Laterality Modality Ultrasound 06/26/2025 1:09 PM EDT Narrative 06/26/2025 1:30 PM EDT [address] [address] Ultrasound Report Signed Patient: Sridevi Pruitt I MR#: [id number] : 1960 Acct:[id number] Age/Sex: 65 / F ADM Date: 06/26/25 Loc: . Attending Dr: Libra Barone MD Ordering Physician: Libra Barone MD Date of Service: 06/26/25 Procedure(s): US Extremity Nonvas Limited LT Accession Number(s): [id number] cc: Libra Barone MD Exam:US Extremity Nonvas [...] 06/26/25 1327 DD/ 1309 TD/TT: 06/26/25 1312 Marketing Campaign Analyst: Procedure Note Donotuseinterpreter, Image - 06/26/2025 [place] [address] Ultrasound Report Signed Patient: Sridevi Pruitt IMR#: [id number] : 9Acct:[id number] Age/Sex: 65 / FADM Date: 06/26/25 Loc: . Attending Dr: Libra Barone MD Ordering Physician: Libra Barone MD Date of Service: 06/26/25 Procedure(s): US Extremity Nonvas Limited LT Accession Number(s): [id number] cc: Libra Barone MD Exam:US Extremity Nonvas [...] 06/26/25 1327 DD/ 1309 TD/TT: 06/26/25 1312 Marketing Campaign Analyst: us Libra Barone MD IMG US PROCEDURES Final Re sult * BI Mammogram Diagnostic Tomosynthesis Bilateral (05/18/2025 1:30 PM EDT) Anatomical Region Laterality Modality Breast Bilateral Mammography 05/18/2025 1:30 PM EDT Narrative 05/18/2025 2:45 PM EDT [facility] [address] [place] [address] Mammography Report Signed Patient: Sridevi Pruitt I MR#: [id number] : 1960 Acct:[id number] Age/Sex: 64 / F ADM Date: 05/18/25 Loc: HO.MAMMO Attending Dr: Sue Coats MD Ordering Physician: Sue Coats MD Results: 2Be nign Findings Date of Service: 05/18/25 Follow Up: 1 Year From Orig ina Mammogram Procedure(s): MM tomosynthesis diagnostic BI Accession Number(s): [id number] cc: Libra Barone MD; Sue Coats MD [...] clip from previous needle core biopsy. 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 [address] Mammography Report Signed Patient: Sridevi Pruitt IMR#: [id number] : 9Acct:[id number] Age/Sex: 64 / FADM Date: 05/18/25 Loc: HO.MAMMO Attending Dr: Sue Coats MD Ordering Physician: Sue Coats MDResults: 2Be nign Findings Date of Service: 05/18/25Follow Up: 1 Year From [facility] Mammogram Procedure(s): MM tomosynthesis diagnostic BI Accession Number(s): [id number] cc: Libra Barone MD; Sue Coats MD [...] clip from previous needle core biopsy. 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 [...] DO 05/18/2025 02:43 PM EDT RP Workstation: Nagi Dictated By: Donna Mooney DO Signed By: <Electronically signed by Donna Mooney DO in OV> 05/18/25 1443 DD/ 1330 TD/TT: 05/18/25 1358 Marketing Campaign Analyst: us Sue Coats MD IMG BI PROCEDURES Final Result * Lipid Panel, Standard (04/18/2025 8:51 AM EDT) Triglycerides 61 <150 mg/dL [facility] Comment:Desirable Triglyceri de: less than 150 mg/dLBorderline High Triglyceride 150-199 mg/dLHigh Triglyceride: 200-499 mg/dLVery High Triglyceride: greater than or equal to 5OO mg/dL Cholesterol 144 <200 mg/dL [facility] Comment:Desirable Cholestero l: less than 200 mg/dLBorderline High Cholesterol: 200-239 mg/dLHigh Cholesterol: greater than 239 mg/dL LDL Cholesterol Calculated 79 <100 mg/dL [facility] Comment:Desirable LDL: less than 100 [...] Barone MD LAB BLOOD ORDERABLES Final Result [facility] [address] [place] [phone] [phone] * ThinPrep Imaging Pap and HPV mRNA E6/E7 with Reflex to HPV 16,18/45 (06/21/2024 9:52 AM EDT) HPV 16 RNA [facility] HPV 18/45 RNA [facility] HPV nRNA E6/E7 Not Detected Not Detected [facility] Comment:Methodology: Transcr iption-Mediated AmplificationThis assay detects E6/E7 viral messenger RNA (mRNA) from 14high-risk HPV types (16,18,31,33,35,39,45,51,52,56,58,59,66,68).Cervical sources are required for HPV testing.If a vaginal source from a patient who has had atotal hysterectomy with removal of cervix wassubmitted, please contact the testing laboratoryfor alternative testing options.For additional information, please refer tohttp://education.Image [employer]/faq/QGQ245x5(This link if provided for information/educational purposes only.)THIS TEST WAS PERFORMED AT:[facility] [place] [phone] KHAN MD SOURCE: SEE NOTE [facility] Comment:Cervix Report Status: [facility] Clinical Information: SEE NOTE [facility] Comment:ROUTINE LMP: SEE NOTE [facility] Comment:PM Prev. PAP: SEE NOTE [facility] Comment:06/05/22 Prev. BX: SEE NOTE [facility] Comment:NONE GIVEN Statement Of Adequacy: SEE NOTE [facility] Comment:SATISFACTORY FOR GHAZAL CORONA General Categorization: [facility] Interpretation/Result: SEE NOTE [facility] Comment:Cytology Results: Ne gative for intraepitheliallesion or malignancy.Atrophic pattern; predominantly parabasal cells Cytology Comment SEE NOTE [facility] Comment:This Pap test has be en evaluated with computerassisted technology. Syrup Shed Supervisor: SEE NOTE [facility] Comment:BK,CT(ASCP)CT screen ing location: [address] Review Syrup Shed Supervisor: [facility] Pathologist [facility] PAP Infection [facility] See Note SEE NOTE [facility] Comment:EXPLANATORY NOTE:The Pap is a screening test for cervical cancer. It isnot a diagnostic test and is subject to false negativeand false positive results. It is most reliable when asatisfactory sample, regularly obtained, is submittedwith relevant clinical findings and history, and whenthe Pap result is evaluated along with historic andcurrent clinical information. 06/21/2024 9:52 AM EDT 06/21/2024 2:35 PM EDT Narrative [facility] - 06/23/2024 12:57 PM EDT SEE SCANNED RESULTS IN EMRWas previous PAP abnormal? YesIf PAP abnormal, please specify: hpv +Clinical Information: RoutineCollection Date: 06/21/24LMP: postmenopausalDate of previous PAP 06/05/22Performed by: : Cervical us Generic External Data Provider LAB PATHOLOGY ORD ERABLES Final Result [facility] [address] [place] [phone] [phone] * Hepatitis Panel, General (07/22/2023 1:58 PM EDT) Hepatitis A IgM Nonreactive Nonreactive [facility] Comment:IgM antibodies to WOLF V not detected; does not exclude earlyacute or recovered HAV infection. ~Hepatitis B Surface Antibody REACTIVE Nonreactive [facility] Comment:REACTIVE: > 11.99 mI U/mL Hepatitis B Core Antibody Nonreactive Nonreactive [facility] Hepatitis C Antibody Nonreactive Nonreactive [facility] Comment:Antibodies to HCV no t detected; does not exclude early acuteHCV infection. Hepatitis B Surface Ag Negative Negative [facility] 07/22/2023 1:58 PM EDT 07/22/2023 1:59 PM EDT [facility] External Provider LAB BLO OD ORDERABLES Final Result [facility] [address] [place] [phone] [phone] * Colonoscopy (12/01/2022 12:16 PM EST) Historical Provider MD HEALTH MAINTENANCE Final Result from Last 3 Months or Most Recently Relevant to Health Maintenance [place] [phone] [facility]LY [facility] USP OPTIONS (HMO D-SNP) [facility] STANDARD DENTAL - [facility] * Guarantor: Sridevi Pruitt Account Type Relation to Patient Date of Phone Billing Address Personal/Family Self [address] [place] [phone] * Guarantor: Sridevi Pruitt Account Type Relation to Patient Date of Phone Billing Address Personal/Family Self [address] [place] [phone] * Guarantor: Sridevi Pruitt Account Type Relation to Patient Date of Phone Billing Address Personal/Family Self [address] [place] [phone] Care Teams Manager Neonatal Relationship Specialty Start Date End Date Lizabeth, MD Libra [address] [place] [phone] PCP - General Family Medicine 11/23/18 Malu Medina, PharmD [address] [place] [phone] Pharmacist Internal Medicine 05/09/24 Tamie Vega OD [address] [place] [phone] Optometry 02/16/25February [address] [place] [address] 3rd [place] [address] Gastroenterology 04/20/25 Dr. Suero [facility] 08/09/25
--- OUTSIDE RECORDS SUMMARY | 2025-09-07 07:21 | XMS_ITS | Encounter Summary ---
Author Organization [employer] Address [address] [facility] 7t [place] [address] Care Team Providers Care Riveter Hand Name Role Phone Libra Barone MD Primary Care Provider + [phone] Malu Medina PharmD Unavailable Gary, Tamie OD Unavailable [phone] February Unavailable Reason for Visit * Reason Onset Date Comments Appointment Request 08/22/2024 Encounter Details Date Type Department Care Team ([facility] st Contact Info) Description 08/22/2024 Telephone [facility] [address] [place], [place] [phone] Libra Barone MD [address] [place], [place] [phone] Appointment Request Social History Tobacco Use Types [...] Description 10/10/2025 3:00 PM EST Medication Management [facility] [address] [place] [phone] Malu Medina, PharmD [address] [place] [address] 11/08/2025 3:15 PM EST Office Visit [facility] [address] [place] [phone] Libra Barone MD [address] [place] [address] documented as of this encounter Goals Goal [...] documented as of this encounter Care Teams Riveter Hand Relationship Specialty Start Date End Date Libra Barone MD [address] [place] [address] PCP - General Family Medicine 11/23/18 Malu Medina PharmD [address] [place] [phone] Pharmacist Internal Medicine 05/09/24 Tamie Vega OD [address] [place] [phone] Optometry 02/16/25February [address] [place] [address] 3rd [place] [address] Gastroenterology 04/20/25 Dr. Nimo Sellers Psychiatry 08/09/25 documented as of this encounter
--- OUTSIDE RECORDS SUMMARY | 2025-09-07 07:21 | XMS_ITS | Encounter Summary ---
Author Organization [employer] Address [address] [facility] 7t [place] [address] Care Team Providers Care Hot Air Furnace Installer And Repairer Name Role Phone Libra Barone MD Primary Care Provider + [phone] Malu Medina PharmD Unavailable Dwight Vegan OD Unavailable [phone] February Unavailable Reason for Visit * Reason Comments Med Refill Encounter Details Date Type Department Care Team (Late st Contact Info) Description 08/24/2025 Refill [facility] [address] [place], [place] [phone] Malu Medina, PharmD [address] [place] [address] Benign hypertension Social History Tobacco Use Types [...] Description 10/10/2025 3:00 PM EST Medication Management [facility] [address] [place] [phone] Malu Medina PharmD [address] [place] [address] 11/08/2025 3:15 PM EST Office Visit [facility] [address] [place] [address] Libra Barone MD [address] [place] [phone] documented as of this encounter Goals Goal [...] documented as of this encounter Care Teams Hot Air Furnace Installer And Repairer Relationship Specialty Start Date End Date Libra Barone MD [address] [place] [address] PCP - General Family Medicine 11/23/18 Malu Medina PharmD [address] [place] [address] Pharmacist Internal Medicine 05/09/24 Tamie Vega OD [address] [place] [address] Optometry 02/16/25February [address] [place] [address] 3rd [place] [address] Gastroenterology 04/20/25 Dr. Nimo Sellers Psychiatry 08/09/25 documented as of this encounter
--- OUTSIDE RECORDS SUMMARY | 2025-09-07 07:21 | XMS_ITS | Encounter Summary ---
Author Organization [employer] Address [address] [facility] 7t [place] [address] Care Team Providers Care Video Manager Name Role Phone Libra Barone MD Primary Care Provider + [phone] Malu Medina PharmD Unavailable Gary, Tamie OD Unavailable [phone] February Unavailable Reason for Visit * Reason Onset Date Comments Appointment Request 01/02/2025 Encounter Details Date Type Department Care Team ([facility] st Contact Info) Description 01/02/2025 Telephone [facility] [address] [place], [place] [phone] Libra Barone MD [address] [place], [place] [phone] Appointment Request Social History Tobacco Use Types [...] Description 10/10/2025 3:00 PM EST Medication Management [facility] [address] [place] [phone] Malu Medina, PharmD [address] [place] [address] 11/08/2025 3:15 PM EST Office Visit [facility] [address] [place] [phone] Libra Barone MD [address] [place] [address] documented as of this encounter Goals Goal Patient Goal Type Associated Problems Recent Progress Patient-Stated? Author Blood Pressure < 140/90 Blood Pressure 149/75(2024 2:40 PM EDT) No Malu Mckinnon PharmD Hemoglobin A1c < 7 Result Component 7(08/09/2025 9:12 AM EDT) No Malu Mkcinnon PharmD documented as of this encounter Visit Diagnoses Not on filedocumented in this encounter Additional Health Concerns Assessment Noted Time PHQ-9 Depression Total Score: 0 04/20/20 24 3:44 PM EDT documented as of this encounter Care Teams Video Manager Relationship Specialty Start Date End Date Libra Barone MD [address] [place] [address] PCP - General Family Medicine 11/23/18 Malu Medina PharmD [address] [place] [address] Pharmacist Internal Medicine 05/09/24 Tamie Vega OD [address] [place] [address] Optometry 02/16/25February [address] [place] [address] 3rd [place] [address] Gastroenterology 04/20/25 Dr. Nimo Sellers Psychiatry 08/09/25 documented as of this encounter
--- OUTSIDE RECORDS SUMMARY | 2025-09-07 07:21 | XMS_ITS | Encounter Summary ---
Author Organization [employer] Address [address] [facility] 7t [place] [address] Care Team Providers Care Senior Qa Tester Name Role Phone Libra Barone MD Primary Care Provider + [phone] Malu Medina PharmD Unavailable Tamie Vega OD Unavailable February Unavailable Encounter Details Date Type Department Care Team (Latest Contact Info) Description 10/09/2022 Abstract [facility] CONVERSIONS Dental, Provider, DDS Social [...] Description 10/10/2025 3:00 PM EST Medication Management [facility] [address] [place] [address] [phone] Malu Medina, PharmD [address] [place], [place] [phone] 11/08/2025 3:15 PM EST Office Visit [facility] [address] [place] [address] [phone] Libra Barone MD [address] [place], [place] [phone] documented as of this encounter Visit Diagnoses Not on filedocumented in this encounter Care Teams Senior Qa Tester Relationship Specialty Start Date End Date Libra Barone MD [address] [place] [address] PCP - General Family Medicine 11/23/18 Malu Medina, LisaD [address] [place] [address] Pharmacist Internal Medicine 05/09/24 Tamie Vega OD [address] [place] [address] Optometry 02/16/[address] [place] [address] 3rd [place] [address] Gastroenterology 04/20/25 Dr. Nimo Sellers Psychiatry 08/09/25 documented as of this encounter
--- OUTSIDE RECORDS SUMMARY | 2025-09-07 07:21 | XMS_ITS | Encounter Summary ---
Author Organization [employer] Address [address] [facility] 7t [place] [address] Care Team Providers Care Shrimp Packer Name Role Phone Libra Barone MD Primary Care Provider + [phone] Malu Medina PharmD Unavailable Tamie Vega OD Unavailable February Unavailable Encounter Details Date Type Department Care Team (Latest Contact Info) Description 03/25/2021 Abstract [facility] CONVERSIONS Dental, Provider, DDS Social [...] Description 10/10/2025 3:00 PM EST Medication Management [facility] [address] [place] [address] [phone] Malu Medina, PharmD [address] [place], [place] [phone] 11/08/2025 3:15 PM EST Office Visit [facility] [address] [place] [address] [phone] Libra Barone MD [address] [place], [place] [phone] documented as of this encounter Visit Diagnoses Not on filedocumented in this encounter Care Teams Shrimp Packer Relationship Specialty Start Date End Date Libra Barone MD [address] [place] [address] PCP - General Family Medicine 11/23/18 Malu Medina, LisaD [address] [place] [address] Pharmacist Internal Medicine 05/09/24 Tamie Veag OD [address] [place] [address] Optometry 02/16/[address] [place] [address] 3rd [place] [address] Gastroenterology 04/20/25 Dr. Nimo Sellers Psychiatry 08/09/25 documented as of this encounter
--- OUTSIDE RECORDS SUMMARY | 2025-09-07 07:21 | XMS_ITS | Encounter Summary ---
Author Organization [employer] Address [address] [facility] 7t [place] [address] Care Team Providers Care Campus Executive Director Name Role Phone Libra Barone MD Primary Care Provider + [phone] Malu Medina PharmD Unavailable Tamie Vega OD [...] EST Medication Management [facility] [address] [place] [address] [phone] Malu Medina, PharmD [address], [place] [phone] 11/08/2025 3:15 PM EST Office Visit [facility] [address] [place] [address] [phone] Libra Barone MD [address], [place] [phone] documented as of this encounter Visit Diagnoses Not on filedocumented in this encounter Care Teams Campus Executive Director Relationship Specialty Start Date End Date Libra Barone MD [address] [place] [phone] PCP - General Family Medicine 11/23/18 Malu Medina, Becky [address] [place] [phone] Pharmacist Internal Medicine 05/09/24 Tamie Vega OD [address] [place] [phone] Optometry 02/16/25LaiFebruary [address] [place] [address] Drive 3rd [place] [address] Gastroenterology 04/20/25 Dr. Nimo Sellers Psychiatry 08/09/25 documented as of this encounter
--- OUTSIDE RECORDS SUMMARY | 2025-09-07 07:21 | XMS_ITS | Encounter Summary ---
Author Organization [employer] Address [address] [facility] 7t [place] [address] Care Team Providers Care Asphalt Engineer Name Role Phone Libra Barone MD Primary Care Provider + [phone] Malu Medina PharmD Unavailable Gary, Tamie OD Unavailable +[phone] February Unavailable Reason for Visit * Reason Onset Date Comments Pharmacy [facility] 08/19/2024 Encounter Details Date Type Department Care Team ([facility] st Contact Info) Description 08/19/2024 Telephone [facility] [address] [place], [place] [phone] Libra Barone MD [address] [place], [place] [phone] Pharmacy [facility] Social History Tobacco Use Types [...] Description 10/10/2025 3:00 PM EST Medication Management [facility] [address] [place] [phone] Malu Medina, PharmD [address] [place] [phone] 11/08/2025 3:15 PM EST Office Visit [facility] [address] [place] [phone] Libra Barone MD [address] [place] [phone] documented as of this encounter Goals Goal [...] documented as of this encounter Care Teams Asphalt Engineer Relationship Specialty Start Date End Date Libra Barone MD [address] [place] [address] PCP - General Family Medicine 11/23/18 Malu Medina PharmD [address] [place] [address] Pharmacist Internal Medicine 05/09/24 Tamie Vega OD [address] [place] [phone] Optometry 02/16/25LaiFebruary [address] [place] [address] 3rd [place] [address] Gastroenterology 04/20/25 Dr. Nimo Sellers Psychiatry 08/09/25 documented as of this encounter
[2025-09-07 07:40] LABS: COVID-19 Test Negative (Negative); IDNOW Serial# 55D5AD1C; IDNOW Serial# 58CA691E; Influenza B2 Negative (Negative)
[2025-09-07 10:19] LABS: Bacterial Vaginosis PCR POSITIVE (Negative); Candida Group PCR NOT DETECTED (Not Detect); Candida glab krusei PCR NOT DETECTED (Not Detect); Trichomonas vaginalis PCR NOT DETECTED (Not Detect)
[2025-09-07 10:48] LABS: CT PCR NOT DETECTED (Not Detect.); NG PCR NOT DETECTED (Not Detect.)
[2025-09-07 11:16] LABS: Appearance Urine Clear; Glucose Urine UA Negative (Negative); PH 6.0 (5.0-9.0); Specific Gravity - Urine 1.015 (1.005-1.025)
[2025-09-07 11:34] VITALS: BP 111/55; PULSE 57; RESP 18; TEMP 36.5; O2SAT 96
== END 2025-09-07 11:34 | disposition home or self-care (01) ==
PROVIDERS: Physician Assistant; Emergency Provider Emergency Medicine
DX: N76.0 Acute vaginitis (principal); I10 Essential (primary) hypertension; E11.9 Type 2 diabetes mellitus without complications; N94.89 Other specified conditions associated with female genital organs and menstrual cycle; Z87.891 Personal history of nicotine dependence; Z79.899 Other long term (current) drug therapy; Z87.19 Personal history of other diseases of the digestive system
CPT/HCPCS: 71046; 76830; 76856; 81003; 81515; 87491; 87502; 87591; 87635; 93975; 99284

== ENCOUNTER → 2025-09-07 07:02 | Outpatient (BNV) | payer OTHER, SELFPAY | PROVIDERS: Emergency Provider Emergency Medicine; Visit Provider Radiology Diagnostic Radiology | DX: R05.9 Cough, unspecified (principal); R10.32 Left lower quadrant pain | CPT/HCPCS: 71046; 76830; 76856; 93975 ==

== ENCOUNTER 2025-10-26 14:21 | Outpatient (AMB) | payer OTHER, SELFPAY ==
--- NOTE | 2025-10-26 15:12 | MHC.OFFVIS ---
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 Complaining of bilateral breast pain Last Pap/HPV was negative in 06/13 Last Mammogram was BI-RADS 2 in 05/17 Last Colonoscopy was done in 11/14 Last DEXA scan was in 07/16 Pelvic ultrasound done in 09/16 showed the following: IMPRESSION: No ovarian torsion. 2.6 cm, predominantly fat uterine lesion in the fundus. 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 PFSH Medical History (Updated 10/26/25 @ 15:37 by Xander Alonso MD) Well woman exam Abdominal bloating Abdominal cramping Transaminitis Postmenopausal bleeding Unsatisfactory cervical Papanicolaou smear Chronic idiopathic constipation Urinary frequency Diverticulitis Epigastric pain COVID-19 Bacterial vaginosis Uterine mass COVID-19 Well woman exam Smoker Bacterial vaginosis Hypertension Tubular adenoma of colon LLQ abdominal pain 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 Gastritis Surgical History S/P laparoscopic cholecystectomy Hx laparoscopic cholecystectomy Hx of hernia repair History of esophagogastroduodenoscopy (EGD) Hx of colonoscopy Family History Father Family history of prostate problems Colon cancer Mother Tumor Social History Household Members: None Housing: House Do you presently have visiting nurse or other home services: Yes ([employer]CH[employer]ISE [employer]LECT[employer]; 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, 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) Alcohol intake: never Patient Tobacco Use Status: Never used Tobacco Tobacco use type: Cigarette Cigarettes Per Day: 2 Years Smoked: 20 e-Cigarette/Vaping Use: Never Used Second Hand Smoke Exposure: No Advance Directives Date on File: 07/31/25 service: No Current occupational status: disabled Female Reproductive History Menstrual Age of Menarche: 13 Date of last pap smear: 06/05/22 Date of Mammogram: 05/18/25 Review of Systems Const All systems reviewed & are unremarkable except as noted in HPI and below Card Reports as per HPI Resp Reports as per HPI GI Reports as per HPI and Reports no additional complaints Reports as per HPI Physical Exam Vital Signs: Last Vital Signs BP 118/64 10/26/25 15:13 BMI result Body Mass Index 32.9 Const General: cooperative, healthy appearing and comfortable Chest Chest palpation & inspection: normal inspection of the chest and normal palpation of entire chest wall Breast/axilla inspection: normal inspection of the breasts and normal inspection of the axillae Breast/axilla palpation: normal palpation of the breasts, normal palpation of the axillae and no axillary lymphadenopathy Resp Effort & Inspection: normal respiratory effort Auscultation: clear to auscultation bilaterally Percussion: percussion normal Cardio Palpation: normal PMI Rate: regular rate Rhythm: regular rhythm Heart sounds: no murmurs and no rubs Peripheral pulses: Peripheral pulses 2+ throughout GI Inspection: Yes normal to inspection Palpation (GI): Soft to palpation, nontender, no guarding, not rigid and No hepatosplenomegaly present Percussion: Yes normal to percussion Auscultation: normal bowel sounds Rectal Exam - Female: deferred General: Yes bladder normal to palpation External Female Exam: No lesion Speculum Exam - Vagina: normal appearance of the vagina, normal palpation, normal vaginal discharge and not erythematous Speculum Exam - Cervix: normal appearance of the cervix and normal palpation Bimanual exam- vagina & uterus: normal bimanual exam, normal palpation, uterine size normal, bladder normal to palpation, consistency normal and normal palpation Bimanual Exam- Adnexa, other: normal adnexae, no masses and no tenderness Assessment & Plan Assessment & Plan (1) Well woman exam: Comment: Pap negative/HPV positive, colpo/ECC negative in 2020 Code(s): Z01.419 - Encounter for gynecological examination (general) (routine) without abnormal findings Category: Medical Plan: Co testing not indicated since the patient 's age is above 65 with no history of abnormal Pap smears last 25 years, adequately screen for the last 10 years with no history of immunosuppression. Counseled the patient about the recommended dietary allowance of 1200 mg of Calcium & 800 IU of vitamin D. Instructions given to patient to schedule next screening Mammogram in 05/17. The patient was instructed to perform monthly self-breast exams and to schedule an annual exam in a year; All questions answered and the patient verbalized understanding. (2) Breast pain: Code(s): N64.4 - Mastodynia Category: Medical Plan: Discussed with the patient the finding on Breast exam .The differential diagnosis includes but not limited to lump/cyst/pre cancer/cancer or dense breast tissue. The work up includes bilateral breast US and bilateral diagnostic mammogram and referred the patient for surgical breast consult. (3) Leiomyoma: Comment: lipoleiomyoma Code(s): D21.9 - Benign neoplasm of connective and other soft tissue, unspecified Category: Medical Plan: Discussed with the patient the finding on pelvic ultrasound done in the emergency room in 09/16, pelvic MRI ordered, instructions given the patient to schedule a follow-up appointment within 2 weeks. All questions answered, the patient verbalized understanding Orders: Orders US breast RT limited Today N64.4 - Mastodynia MR pelvis wo/w con Today D25.9 - Leiomyoma of uterus, unspecified, N64.4 - Mastodynia MM tomosynthesis diagnostic BI Today N64.4 - Mastodynia US breast LT limited Today N64.4 - Mastodynia Referrals General Surgery Referral N64.4 - Mastodynia Coding Level of Care Code Est Pt Level 3 (79741) Est Pt Prev Care >65y(22331) Diagnoses Well woman exam Z01.419 Breast pain N64.4 Leiomyoma D21.9
[2025-10-26 15:13] VITALS: BP 118/64; BMI 32.9
== END 2025-10-26 15:50 | disposition home or self-care (01) ==
LOC: HO.HWS 14:21
PROVIDERS: Visit Provider Obstetrics & Gynecology
DX: Z01.419 Encounter for gynecological examination (general) (routine) without abnormal findings (principal); N64.4 Mastodynia; D21.9 Benign neoplasm of connective and other soft tissue, unspecified
CPT/HCPCS: 99213; 99397; 99459

== ENCOUNTER → 2025-10-26 14:21 | Outpatient (BNVA) | payer OTHER, SELFPAY | PROVIDERS: Visit Provider Obstetrics & Gynecology | DX: Z01.419 Encounter for gynecological examination (general) (routine) without abnormal findings (principal); N64.4 Mastodynia; D21.9 Benign neoplasm of connective and other soft tissue, unspecified | CPT/HCPCS: 99212; 99397 ==

== ENCOUNTER 2025-11-17 12:53 | Outpatient (REF) | payer OTHER, SELFPAY ==
--- OUTSIDE RECORDS SUMMARY | 2025-11-12 23:59 | XMS_ITS | Continuity of Care Document ---
Author Organization [facility] Address [address] [place] [address]- Care Team Providers Care Tester Armature Or Fields Name Role Phone Libra Barone MD Primary Care Physician Encounter [facility] Date(s): 10/13/25 - 11/12/25 [facility] [address] [place] [address]- Attending Physician: Sebastian Daily Admitting Physician: Sebastian Daily Referring Physician: Sebastian Daily Encounter Type: Triage Allergies, Adverse Reactions, Alerts No Known Allergies Medications Colace sodium 100 mg oral capsule 1 capsule = 100 mg, By Mouth, 2 times a day, PRN for constipation, # 30 capsule, 0 Refills, Maintenance, 08/24/14 2:14:26 PM EDT, Capsule, [facility] Start Date: 08/24/14 Status: Ordered Medication Dispense [...] Fills: 1 Fills Dispensed: 0 nystatin topical [id number] u/gm powder 1 applicator, Topically, 3 times a day, # 30 Gm, 0 Refills, Maintenance, 08/24/14 2:14:56 PM EDT, [facility], 1 applicator Topically 3 [...] Team Personnel Name: Libra Barone MD Position: [facility] Outreach Member Role: PCP Address: [address] [place] [address] Telecom: Care Team Related Persons Name: LEEANN SPARROW Insurance Providers Guarantor name: RICARDO SIEGEL Health Plan Information #: 1 Payer: [employer] Payer Identifier: NA Member Number: [id number] Group Number: [id number] Subscriber Identifier: ALHAJI Relationship to Subscriber: self Coverage Type: Medicare Managed Care (Includes Medicare Advantage Plans) Coverage Verification Date: ALHAJI Telecom: NA Address:
--- OUTSIDE RECORDS SUMMARY | 2025-11-12 23:59 | XMS_ITS | Continuity of Care Document ---
Author Organization [facility] Address [address] [place] [address]- Care Team Providers Care Architectural Drafting Instructor Name Role Phone Libra Barone MD Primary Care Physician Encounter [facility] Date(s): 07/19/25 - 11/12/25 [facility] [address] [place] [address]- Attending Physician: Rosanna Lowe MD Admitting Physician: Rosanna Lowe MD Encounter Type: Pre-OutPatient One Time Allergies, Adverse Reactions, Alerts No Known Allergies Medications Colace sodium 100 mg oral capsule 1 capsule = 100 mg, By Mouth, 2 times a day, PRN for constipation, # 30 capsule, 0 Refills, Maintenance, 08/24/14 2:14:26 PM EDT, [facility], [facility] Start Date: 08/24/14 Status: Ordered Medication Dispense [...] Fills: 1 Fills Dispensed: 0 nystatin topical [id number] u/gm powder 1 applicator, Topically, 3 times a day, # 30 Gm, 0 Refills, Maintenance, 08/24/14 2:14:56 PM EDT, [facility], 1 applicator Topically 3 times [...] [facility] Outreach Member Role: PCP Address: [address] [place] [address] Telecom: Care Team Related Persons Name: LEEANN SPARROW Insurance Providers Guarantor name: RICARDO CHRISTAL Health Plan Information #: 1 Payer: [employer] Payer Identifier: ALHAJI Member Number: [id number] Group Number: [id number] Subscriber Identifier: [id number] Relationship to Subscriber: self Coverage Type: Medicare Managed Care (Includes Medicare Advantage Plans) Coverage Verification Date: ALHAJI Telecom: ALHAJI Address:
--- NOTE | ~2025-11-17 | MR_ITS ---
EXAMINATION: MR PELVIS WITHOUT THEN WITH IV CONTRAST HISTORY: D25.9 - Leiomyoma of uterus, unspecified. TECHNIQUE: Axial T1, fat-suppressed T1, and fat suppressed T2, and sagittal and coronal T2-weighted MR images of the pelvis were obtained. Subsequently, sagittal and axial fat-suppressed T1-weighted images were obtained after the intravenous administration of 7.5 mL Gadavist. COMPARISON: Correlation is made with a pelvic ultrasound dated 09/07/2025. FINDINGS: The uterus measures approximately 6.4 x 4.3 x 3.1 cm. The uterus is retroverted. There is a 2.1 x 1.9 x 2.4 cm fat signal intensity mass in the posterior aspect of the uterus, compatible with a lipoleiomyoma. This corresponds to the mass noted on ultrasound. The junctional zone is not thickened. The endometrium is unremarkable. There nabothian cysts in the cervix. The ovaries are not well visualized. There is no free fluid in the pelvis. There is no pelvic lymphadenopathy. There is diverticulosis of the sigmoid colon, without evidence of diverticulitis. 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 Electronically signed by: Ronak Adair MD 11/17/2025 02:39 PM [facility]
== END 2025-11-17 12:54 | disposition home or self-care (01) ==
LOC: HO.MRI 12:53
PROVIDERS: PCP Family Medicine; Visit Provider Obstetrics & Gynecology
DX: N64.4 Mastodynia (principal); D25.9 Leiomyoma of uterus, unspecified
CPT/HCPCS: 72197; A9585

== ENCOUNTER → 2025-11-17 12:53 | Outpatient (BNV) | payer OTHER, SELFPAY | PROVIDERS: PCP Family Medicine; Visit Provider Radiology Diagnostic Radiology | DX: D25.9 Leiomyoma of uterus, unspecified (principal) | CPT/HCPCS: 72197 ==